=== PATIENT | female | born 1935 | race Caucasian/White ===

== ENCOUNTER 2016-06-08 08:27 | Inpatient (IN) | payer MEDICARE, BC ==
[~2016-06-08] VITALS: Ht 170.2 cm; Wt 83.0 kg
[~2016-06-08 08:27] MED LIST: ASPI325T4 PO; ASPI81TA44 PO; ASPI81TA9 PO; CALC1TAB PO; CIPR250S3 PO; CLOP75TA PO; DOCO1CAP2 PO; DOCU100C5 PO; DULO60CA6 PO; FAMO40TA4 PO; FLUT16SP2 NS; GLIP5TAB PO; GLIP5TAB22 PO; LISI-338 PO; MULT-246 PO; NAPR220T70 PO; PRAV80TA PO
--- NOTE | 2016-06-08 08:39 | ED.ADGEN ---
Past Medical History Past Medical History: CAD, Diabetes-Type II, High Cholesterol, Hypertension, UTI Past Surgical History: Hysterectomy, Other Additional Past Surgical Histo: cardiac stent placement, back, left mastoctomy Alcohol Use: None Drug Use: None Adult General Chief Complaint Chief Complaint: MECHANICAL FALL HPI HPI Patient is a 81 year old woman, history of type 2 diabetes mellitus, CAD, hypertension, hypercholesterolemia, who presents to the emergency department after mechanical fall. Patient states that she was pushing a large box of poison into her bathroom, with her foot, when she lost her balance and fell, she believes that she struck the right side rib cage against the edge of the box , she fell onto the floor of the bathroom. She does not believe she struck her head, denies any headache, any neck pain, any loss of consciousness, any pain aside from the pain in her lower right rib cage. She did ambulate without difficulty at the scene. EMS was contacted secondary to the pain which she states is worse with deep inspiration and with motion. Has not taken any medications prior to coming to the ED. This occurred approximately 45 minutes prior to arrival in the ED. Patient does use a daily aspirin. No other blood thinners. No previous injuries. Denies any preceding symptoms, no lightheadedness, no dizziness, no nausea, no vomiting, no shortness of breath or chest pain. Review of Systems Review of Systems Constitutional: Denies fever or chills. [] Eyes: Denies change in visual acuity. [] HENT: Denies nasal congestion or sore throat. [] Respiratory: Denies cough or shortness of breath. [] Cardiovascular: Denies chest pain or edema. [] GI: Denies abdominal pain, nausea, vomiting, bloody stools or diarrhea. [] : Denies dysuria. [] Musculoskeletal: Denies back pain or joint pain. [] Integument: Denies rash. [] Neurologic: Denies headache, focal weakness or sensory changes. [] Endocrine: Denies polyuria or polydipsia. [] Lymphatic: Denies swollen glands. [] Psychiatric: Denies depression or anxiety. [] Current Medications Current Medications Current Medications Medications (Trade) Dose Ordered Sig/Lakeisha Start Time Stop Time Status Last Admin Dose Admin Acetaminophen (Tylenol) 1,000 mg 1X ONCE 06/08/16 09:00 06/08/16 09:01 DC 06/08/16 09:12 1,000 MG Lidocaine (Lidoderm) 1 patch 1X ONCE 06/08/16 09:00 06/08/16 09:01 DC 06/08/16 09:12 1 PATCH Oxycodone/ Acetaminophen (Percocet 5/325) 1 tab 1X ONCE 06/08/16 10:00 06/08/16 10:01 DC 06/08/16 10:00 1 TAB Allergies Allergies Allergies Coded Allergies Type Severity Reaction Last Updated Verified metformin Allergy Intermediate 05/13/14 Yes Physical Exam Physical Exam Constitutional: Well developed, well nourished, no acute distress, non-toxic appearance. [] HENT: Normocephalic, atraumatic, bilateral external ears normal, oropharynx moist, no oral exudates, nose normal. [] Eyes: PERRLA, EOMI, conjunctiva normal, no discharge. [] Neck: Normal range of motion, no midline or paraspinal tenderness, supple, no stridor. [] Cardiovascular:Heart rate regular rhythm, no murmur , S1, S2, rubs or gallops. Patient with reproducible tenderness along the right posterior and lateral lower rib cage, no external signs of trauma, no abdominal tenderness, no crepitus, bony point tenderness is noted along the lateral rib cage, 6 through 10. Lungs & Thorax: Bilateral breath sounds clear to auscultation [] Abdomen: Bowel sounds normal, soft, no tenderness, no masses, no rebound, rigidity, no guarding no pulsatile masses. [] Skin: Warm, dry, no erythema, no rash. [] Back: No midline tenderness, no step-offs or deformities, patient with mild paraspinal tenderness on the right side of the lumbar spine, no CVA tenderness. [] Extremities: No tenderness to palpation, pelvis is stable to rock, full range of motion lower extremities without discomfort, no cyanosis, no clubbing, ROM intact, no edema. [] Neurologic: Alert and oriented X 3, normal motor function, normal sensory function, no focal deficits noted. [] Psychologic: Affect normal, judgement normal, mood normal. [] Current Patient Data Vital Signs Vital Signs Date Time Temp Pulse Resp B/P Pulse Ox O2 Delivery O2 Flow Rate FiO2 06/08/16 10:00 18 94 Room Air 06/08/16 08:27 98.3 60 157/70 98.3 Lab Values Laboratory Tests Test 06/08/16 10:15 Urine Collection Type U cath Urine Color Yellow Urine Clarity Clear Urine pH 5.5 Urine Specific [place] 1.015 Urine Protein Negativemg/dL (NEG-TRACE) Urine Glucose (UA) Negativemg/dL (NEG) Urine Ketones (Stick) Negativemg/dL (NEG) Urine Blood Negative (NEG) Urine Nitrite Negative (NEG) Urine Bilirubin Negative (NEG) Urine Urobilinogen Dipstick 0.2mg/dL (0.2 mg/dL) Urine Leukocyte Esterase Large (NEG) Urine RBC 0/HPF (0-2) Urine WBC >40/HPF (0-4) Urine Squamous Epithelial Cells Mod/LPF Urine Bacteria Few/HPF (0-FEW) Urine Mucus Slight/LPF EKG EKG ECG: Rhythm strip: Sinus rhythm, heart rate 80 beats minute, no ectopy. As interpreted by me. Radiology/Procedures Radiology/Procedures [] [facility] [address] [address] IMAGING REPORT Signed PATIENT: SARAVANAN BENITES ACCOUNT: [id number] : 1935 LOCATION: ER AGE: 81 SEX: F EXAM [id number] STATUS: PRE ER ORD. PHYSICIAN: RUSLAN VELIZ DO REASON: Fall/r rib pain PROCEDURE: LUMBAR SPINE 2-3V; RIBS RIGHT AND PA CHEST Exam performed: Lumbar spine and right sided ribs. History: Fall today, pain lower back. Date of service: 06/08/16. Comparison: None available Lumbar spine 3 views findings: Normal sagittal alignment is preserved. 5 nonrib-bearing vertebral bodies are identified. Scoliosis of the lumbar spine with rightward concavity. Vertebral body heights are maintained. There is narrowing of several intervertebral disc spaces with mild osteophytic spurring. No compression fracture. No prevertebral soft tissue swelling. Multilevel bilateral facet hypertrophic changes are noted. Impression: 1. Scoliosis and spondylotic changes involving the lumbar spine. 2. Abnormality noted. End impression. Right rib series findings: Minimally displaced fractures right sixth, seventh, eighth and ninth rib fractures are seen in the posterior axillary line. There is no pneumothorax. The right lung is clear. The heart size and mediastinal silhouette is within limits of normal. The pulmonary vascularity is unremarkable. Atheromatous calcification of the aortic knob. Impression: 1. Nondisplaced right sixth through ninth rib fractures noted. 2. No pneumothorax. DICTATED and SIGNED BY: VINICIO DODSON MD DATE: 06/08/16 0908 CC: RUSLAN VELIZ DO; DEB LEUNG ~ Course & Med Decision Making Course & Med Decision Making Pertinent Labs and Imaging studies reviewed. (See chart for details) Patient's examination and history concerning for fracture. X-ray reveals fractures of right lateral ribs 6 through 9, with mild displacement of the first 3 fractures, no underlying evidence of lung injury. Patient has a Lidoderm patch in place, has been receiving fentanyl in the ED. She states her pain is better, I did discuss these findings with her, she also the spinous from a tree at bedside. Patient states that she would like to be discharged home with possible, she did attempt to ambulate in the ED after oral medication was given, however as soon as she sat up, she experienced significant pain, and was unable to out of bed, even with assistance, I do not believe she'll be able to ambulate safely. Although patient does wish to go home, after discussion she is agreeable to be admitted the hospital for management of her intractable pain that is preventing ADLs. Patient resting more comfortably after receiving additional medication in the ED, etc. spirometry as stated, findings as above discussed with Dr. Umaña of internal medicine, baseline laboratory studies ordered, patient accepted to her service as a full admission to the medical surgical floor, with bridge orders. Dragon Disclaimer Dragon Disclaimer This electronic medical record was generated, in whole or in part, using a voice recognition dictation system. Departure Impression: Primary Impression: Ribs, multiple fractures Additional Impression: Fall Disposition: ADMITTED INPATIENT Condition: IMPROVED Problem Qualifiers Primary Impression: Ribs, multiple fractures Encounter type: initial encounter Fracture type: closed Laterality: right Qualified Code: S22.41XA - Multiple fractures of ribs, right side, initial encounter for closed fracture Additional Impression: Fall Encounter type: initial encounter Qualified Code: W19.XXXA - Unspecified fall, initial encounter RUSLAN VELIZ DO Jun 08, 2016 08:39
[2016-06-08] MEDS ORDERED: ACETAMINOPHEN 500 MG TABLET PO ONE (09:00)
[2016-06-08] MEDS ORDERED: LIDOCAINE (700MG/PATCH) PATCH. TD ONE (09:00)
--- NOTE | 2016-06-08 09:20 | RAD ---
Exam performed: Lumbar spine and right sided ribs. History: Fall today, pain lower back. Date of service: 06/08/16. Comparison: None available Lumbar spine 3 views findings: Normal sagittal alignment is preserved. 5 nonrib-bearing vertebral bodies are identified. Scoliosis of the lumbar spine with rightward concavity. Vertebral body heights are maintained. There is narrowing of several intervertebral disc spaces with mild osteophytic spurring. No compression fracture. No prevertebral soft tissue swelling. Multilevel bilateral facet hypertrophic changes are noted. Impression: 1. Scoliosis and spondylotic changes involving the lumbar spine. 2. Abnormality noted. End impression. Right rib series findings: Minimally displaced fractures right sixth, seventh, eighth and ninth rib fractures are seen in the posterior axillary line. There is no pneumothorax. The right lung is clear. The heart size and mediastinal silhouette is within limits of normal. The pulmonary vascularity is unremarkable. Atheromatous calcification of the aortic knob. Impression: 1. Nondisplaced right sixth through ninth rib fractures noted. 2. No pneumothorax.
[2016-06-08] MEDS ORDERED: OXYCODONE/APAP 5/325 TABLET. PO ONE (10:00)
[2016-06-08 10:30] LABS: BILIRUBIN,URINE NEGATIVE (NEG); GLUCOSE,URINE NEGATIVE (NEG); NITRITE,URINE NEGATIVE (NEG); PH,URINE 5.5; PROTEIN,URINE NEGATIVE (NEG-TRACE); UROBILINOGEN,URINE 0.2 mg/dL (0.2 mg/dL)
[2016-06-08 10:45] LABS: BACTERIA,URINE FEW /HPF (0-FEW); RBC,URINE 0 /HPF (0-2); SQUAMOUS EPITHELIAL CELL,UR MOD /LPF; WBC,URINE >40 /HPF (0-4)
[2016-06-08] MEDS ORDERED: MAGNESIUM HYDROXIDE 2,400 MG/30 ML ORAL.SUSP. PO PRN (12:00)
[2016-06-08] MEDS ORDERED: OXYCODONE IR 5 MG TABLET. PO PRN (12:00)
[2016-06-08] MEDS ORDERED: MAG HYDROX/ALUMINUM HYD/SIMETH 30 ML ORAL.SUSP PO PRN (12:00)
[2016-06-08] MEDS ORDERED: LACTULOSE 20 GM/30 ML SOLUTION. PO PRN (12:00)
[2016-06-08] MEDS ORDERED: MORPHINE SULFATE 2 MG/ML DISP.SYRIN. IV PRN (12:00)
[2016-06-08] MEDS ORDERED: CALCIUM CARBONATE 500 MG TAB.CHEW PO PRN (12:00)
[2016-06-08] MEDS ORDERED: ONDANSETRON PF 4 MG/2 ML VIAL. IV PRN ×2 (12:00→12:45)
[2016-06-08] MEDS ORDERED: BISACODYL 10 MG SUPP.RECT PR PRN (12:00)
[2016-06-08] MEDS ORDERED: DEXTROSE 50% 25 GM / 50ML DISP.SYRIN. IV PRN (12:15)
[2016-06-08] MEDS: INSULIN ASPART 300 UNITS/3 ML INSULN.PEN SQ SCH ×2 (12:30→17:00)
[2016-06-08 13:00] VITALS: BP 98/59
[2016-06-08] MEDS: GLIPIZIDE ER 5 MG TAB.ER.24 PO SCH (13:00)
[2016-06-08] MEDS: DULOXETINE HCL 30 MG CAPSULE.DR. PO SCH (13:00)
[2016-06-08] MEDS: CALCIUM CARB/VIT D3 500/200 TABLET PO SCH (13:00)
[2016-06-08] MEDS: FLUTICASONE 50MCG/NASAL SPRAY 16GM BOTTLE. NS SCH (13:00)
[2016-06-08] MEDS: OMEGA-3 FATTY ACIDS/FISH OIL 1,000 MG CAPSULE. PO SCH (13:00)
[2016-06-08] MEDS: ASPIRIN 81 MG TAB.CHEW PO SCH (13:00)
[2016-06-08] MEDS: FAMOTIDINE 20 MG TABLET. PO SCH (13:00)
[2016-06-08] MEDS: LISINOPRIL 5 MG TABLET. PO SCH (13:00)
[2016-06-08] MEDS: MULTIVITAMIN with MINERAL TABLET. PO SCH (13:00)
[2016-06-08] MEDS: LIDOCAINE (700MG/PATCH) PATCH. TD SCH (13:00)
--- NOTE | 2016-06-08 13:47 | PDOC1 ---
History and Physical Date of Admission Date of Admission DATE: 06/08/16 TIME: 13:43 Identification/Chief Complaint Chief Complaint fall at home Source Source: Caregiver, Chart review, Patient History of Present Illness History of Present Illness Very pleasant 81 y./o female, PCP Dr. Tiera Smith.... Was attempting to move some boxes today in her bathroom but foot got stuck, she hit her R side of ribs on the edge of the box, no head trauma, HAd severe pain afterwards. Xrays at ER showed rib fx 6-9th, no lung injury, UA ok, no labs yet Scoliosis on imaging Was about to be sent home but was road tested at ER and failed miserably, hence admitted PT got percocet and lidoderm patch and seems to be doing well with that Past Medical History Cardiovascular: CAD, HTN, Hyperlipidemia Pulmonary: No pertinent hx CENTRAL NERVOUS SYSTEM: Periperal neuropathy, TIA GI: No pertinent hx Heme/Onc: Cancer Hepatobiliary: No pertinent hx Psych: No pertinent hx Musculoskeletal: Weakness Rheumatologic: No pertinent hx Infectious disease: Other Renal/: No pertinent hx, UTI Endocrine: Diabetes Past Surgical History Past Surgical History: Mastectomy, Hysterectomy, Other Family History Family History: No Significant Social History Smoke: No ALCOHOL: none Drugs: None Current Problem List Problem List Problems Medical Problems: (1) Fall Status: Acute (2) Fall (on) (from) other stairs and steps, initial encounter Status: Acute (3) Ribs, multiple fractures Status: Acute Problems: Current Medications Current Medications Current Medications Lidocaine (Lidoderm) 1 patch 1X ONCE TD Last administered on 06/08/16 09:12; Start 06/08/16 at 09:00; Stop 06/08/16 at 09:01; Status DC Acetaminophen (Tylenol) 1,000 mg 1X ONCE PO Last administered on 06/08/16 09: 12; Start 06/08/16 at 09:00; Stop 06/08/16 at 09:01; Status DC Oxycodone/ Acetaminophen (Percocet 5/325) 1 tab 1X ONCE PO Last administered on 06/08/16 10:00; Start 06/08/16 at 10:00; Stop 06/08/16 at 10:01; Status DC Ondansetron HCl (Zofran) 4 mg PRN Q6HRS PRN IV NAUSEA/VOMITING; Start 06/08/16 at 12:00 Al Hydrox/Mg Hydrox/Simethicone (Mylanta Plus Xs) 30 ml PRN Q3HRS PRN PO HEARTBURN / GAS; Start 06/08/16 at 12:00 Calcium Carbonate/ Glycine (Tums) 500 mg PRN Q3HRS PRN PO UPSET STOMACH; Start 06/08/16 at 12:00 Oxycodone HCl (Roxicodone) 5 mg PRN Q3HRS PRN PO BREAKTHROUGH PAIN; Start at 12:00 Morphine Sulfate 1 mg PRN Q2HR PRN IV PAIN; Start 06/08/16 at 12:00 Oxycodone/ Acetaminophen (Percocet 5/325) 1 tab PRN Q4HRS PRN PO MILD PAIN, 1ST CHOICE; Start 06/08/16 at 12:00 Docusate Sodium (Colace) 100 mg BID PO ; Start 06/08/16 at 21:00; Status Cancel Magnesium Hydroxide (Milk Of Magnesia) 2,400 mg PRN Q12HR PRN PO CONSTIPATION; Start 06/08/16 at 12:00 Lactulose 20 gm PRN Q12HR PRN PO CONSTIPATION; Start 06/08/16 at 12:00 Bisacodyl (Dulcolax Supp) 10 mg PRN DAILY PRN MT CONSTIPATION; Start 06/08/16 at 12:00 Enoxaparin Sodium (Lovenox 40mg Syringe) 40 mg DAILY16 SQ ; Start 06/08/16 at 16: 00 Lidocaine (Lidoderm) 1 patch DAILY TD ; Start 06/08/16 at 13:00 Aspirin (Children'S Aspirin) 81 mg DAILYWBKFT PO ; Start 06/08/16 at 13:00 Docusate Sodium (Colace) 100 mg DAILY PO ; Start 06/09/16 at 09:00 Fluticasone Propionate (Flonase) 2 spray DAILY NS ; Start 06/08/16 at 13:00 Glipizide (Glucotrol Er) 10 mg DAILY08 PO ; Start 06/08/16 at 13:00 Lisinopril (Prinivil) 5 mg DAILY PO ; Start 06/08/16 at 13:00 Calcium/Vitamin D (Oscal D 500mg/ 200uts) 1 tab DAILY PO ; Start 06/08/16 at 13: 00 Fish Oil (Fish Oil) 1,000 mg DAILY PO ; Start 06/08/16 at 13:00 Duloxetine HCl (Cymbalta) 60 mg DAILY PO ; Start 06/08/16 at 13:00 Famotidine (Pepcid) 40 mg DAILY PO ; Start 06/08/16 at 13:00 Multivitamins/ Calcium (Thera M Plus) 1 tab DAILY PO ; Start 06/08/16 at 13:00 Atorvastatin Calcium (Lipitor) 20 mg QHS PO ; Start 06/08/16 at 21:00 Insulin Aspart (Novolog) 0-9 UNITS TIDWMEALS SQ ; Start 06/08/16 at 12:30 Dextrose 12.5 gm PRN Q15MIN PRN IV SEE COMMENTS; Start 06/08/16 at 12:15 Ondansetron HCl (Zofran) 4 mg PRN Q8HRS PRN IV NAUSEA/VOMITING; Start 06/08/16 at 12:45; Stop 06/09/16 at 12:44 Active Scripts Active Ciprofloxacin 250 Mg/5 Ml Christina.mc.rec 250 Mg PO BID Children's Aspirin (Aspirin) 81 Mg Tab.chew 81 Mg PO DAILYWBKFT 30 Days Glipizide Er (Glipizide) 5 Mg Tab.er.24 10 Mg PO DAILY Reported Pravachol (Pravastatin Sodium) 80 Mg Tablet 80 Mg PO DAILY Multi-Vitamin Daily (Multivitamin) 1 Each Tablet 1 Each PO DAILY Lisinopril 5 Mg Tablet 5 Mg PO DAILY Flonase (Fluticasone Propionate) 16 Gm [place].susp 2 [place] NS DAILY Famotidine 40 Mg Tablet 40 Mg PO DAILY Cymbalta (Duloxetine Hcl) 60 Mg Capsule.dr 60 Mg PO DAILY Docusate Sodium 100 Mg Capsule 100 Mg PO DAILY Fish Oil Concentrate Softgel (Docosahexanoic Acid/Epa) 1 Each Capsule 1 Each PO DAILY Caltrate 600 + D Tablet (Calcium Carbonate/Vitamin D3) 1 Each Tablet 1 Each PO DAILY Allergies Allergies: Coded Allergies: metformin (Verified Allergy, Intermediate, 05/13/14) ROS General: No: Appetite, Chills, Fatigue, Malaise, Night Sweats, Other PSYCHOLOGICAL ROS: No: Anxiety, Behavioral Disorder, Concentration difficultie , Decreased libido, Depression, Disorientation, Hallucinations, Hostility, Irritablity, Memory difficulties, Mood Swings, Obsessive thoughts, Other, Physical abuse, Sexual abuse, Sleep disturbances, Suicidal ideation Eyes: No Blurry vision, No Decreased vision, No Double vision, No Dry eyes, No Excessive tearing, No Eye Pain, No Itchy Eyes, No Loss of vision, No Other, No Photophobia, No [place], No Uses contacts, No Uses glasses HEENT: No: Epistaxis, Heacaches, Hearing change, Nasal congestion, Nasal discharge, Oral lesions, Other, Sinus pain, Sneezing, Snoring, Sore Throat, Tinnitus, Vertigo, Visual Changes, Vocal changes ALLERGY AND IMMUNOLOGY: No: Hives, Insect Bite Sensitivity, Itchy/Watery Eyes, Nasal Congestion, Other, Post Nasal Drip, Seasonal Allergies Hematological and Lymphatic: No: Bleeding Problems, Blood Clots, Blood Transfusions, Brusing, Night Sweats, Other, Pallor, Swollen Lymph Nodes ENDOCRINE: No: Breast Changes, Galactorrhea, Hair Pattern Changes, Hot Flashes , Malaise/lethargy, Mood Swings, Other, Palpitations, Polydipsia/polyuria, Skin Changes, Temperature Intolerance, Unexpected Weight Changes Breast: No New/Changing Breast Lumps, No Nipple changes, No Nipple discharge, No Other Respiratory: No: Cough, Hemoptysis, Orthopnea, Other, Pleuritic Pain, SOB with excertion, Shortness of breath, Sputum Changes, Stridor, Tachypnea, Wheezing Cardiovascular: No Chest Pain, No Edema, No Lt Headedness, No Orthopnea, No Other, No Palpitations, No Paroxysmal Noc. Dyspnea Gastrointestinal: No Abdominal Pain, No Constipation, No Diarrhea, No Hematochezia, No Melena, No Nausea, No Other, No Vomiting Genitourinary: No , No , No , No , No , No , No , No Discharge, No Dysuria, No Flank Pain, No Frequency, No Hematuria, No Incontinence, No Other, No Pain, No Retention, No Urgency Musculoskeletal: Yes Other (rib pain, R), No Gait Disturbance, No Joint Pain, No Joint Stiffness, No Joint Swelling, No Muscle Pain, No Muscular Weakness, No Pain In:, No Swelling In: Neurological: Yes Gait Disturbance, No Behavorial Changes, No Bowel/Bladder ControlChng, No Confusion, No Dizziness, No Headaches, No Impaired Coord/balance, No Memory Loss, No Numbness/ Tingling, No Other, No Seizures, No Speech Problems, No Tremors, No Visual Changes, No Weakness Skin: No Acne, No Dry Skin, No Eczema, No Hair Changes, No Lumps, No Mole Changes, No Mottling, No Nail Changes, No Other, No Pruritus, No Rash, No Skin Lesion Changes Physical Exam General: Alert, Oriented X3, Cooperative, No acute distress HEENT: PERRLA Lungs: Clear to auscultation, Normal air movement Heart: S1S2, RRR, no thrills, no rubs, no gallops Cardiovascular: S1, S2 Breasts: Normal Abdomen: Normal bowel sounds, Soft, No tenderness, No hepatosplenomegaly, No masses Male Genitals Exam: normal genitalia, normal prostate Extremities: No clubbing, No cyanosis, No edema, Normal pulses, No tenderness/ swelling Skin: No rashes, No breakdown, No significant lesion Neuro: Normal gait, Normal speech, Strength at 5/5 X4 ext, Normal tone, Sensation intact, Cranial nerves 3-12 NL, Reflexes 2+ Psych/Mental Status: Mental status NL, Mood NL Vitals Vitals Vital Signs Date Time Temp Pulse Resp B/P Pulse Ox O2 Delivery O2 Flow Rate FiO2 06/08/16 10:00 18 94 Room Air 06/08/16 08:27 98.3 60 157/70 98.3 Labs Labs Laboratory Tests Test 06/08/16 10:15 Urine Collection Type U cath Urine Color Yellow Urine Clarity Clear Urine pH 5.5 Urine Specific [place] 1.015 Urine Protein Negativemg/dL (NEG-TRACE) Urine Glucose (UA) Negativemg/dL (NEG) Urine Ketones (Stick) Negativemg/dL (NEG) Urine Blood Negative (NEG) Urine Nitrite Negative (NEG) Urine Bilirubin Negative (NEG) Urine Urobilinogen Dipstick 0.2mg/dL (0.2 mg/dL) Urine Leukocyte Esterase Large (NEG) Urine RBC 0/HPF (0-2) Urine WBC >40/HPF (0-4) Urine Squamous Epithelial Cells Mod/LPF Urine Bacteria Few/HPF (0-FEW) Urine Mucus Slight/LPF Laboratory Tests Test 06/08/16 10:15 Urine Collection Type U cath Urine Color Yellow Urine Clarity Clear Urine pH 5.5 Urine Specific [place] 1.015 Urine Protein Negativemg/dL (NEG-TRACE) Urine Glucose (UA) Negativemg/dL (NEG) Urine Ketones (Stick) Negativemg/dL (NEG) Urine Blood Negative (NEG) Urine Nitrite Negative (NEG) Urine Bilirubin Negative (NEG) Urine Urobilinogen Dipstick 0.2mg/dL (0.2 mg/dL) Urine Leukocyte Esterase Large (NEG) Urine RBC 0/HPF (0-2) Urine WBC >40/HPF (0-4) Urine Squamous Epithelial Cells Mod/LPF Urine Bacteria Few/HPF (0-FEW) Urine Mucus Slight/LPF VTE Prophylaxis Ordered VTE Prophylaxis Devices: Yes VTE Pharmacological Prophylaxi: Yes Assessment/Plan Assessment/Plan 1. Right rib fxs number 6-9 2. Scoiliosis 3. HTN plan; obs ADMIT pt/ot coNT LIDODERM PATCH AND PERCOCET iF DOES WELL WITH pt HOME [facility]AO DW PT AND [employer] cHECK VIT D LEVELS MARTÍNEZ PRAKASH MD Jun 08, 2016 13:47
[2016-06-08 14:12] LABS: BASO # 0.1 x10^3/uL (0.0-0.2); BASO % 1 % (0-3); EOS % 0 % (0-3); HEMATOCRIT 40.5 % (36.0-47.0); HEMOGLOBIN 13.2 g/dL (12.0-15.5); LYMPH # 2.1 x10^3/uL (1.0-4.8); LYMPH % 14 % (24-48); MEAN CORPUSCULAR HEMOGLOBIN 31 pg (25-35); MEAN CORPUSCULAR HGB CONC 33 g/dL (31-37); MEAN CORPUSCULAR VOLUME 94 fL (79-100); MONO % 5 % (0-9); NEUT % 80 % (31-73); PLATELET COUNT 227 x10^3/uL (140-400); RED BLOOD COUNT 4.32 x10^6/uL (3.50-5.40); WHITE BLOOD COUNT 15.1 x10^3/uL (4.0-11.0)
[2016-06-08 14:21] LABS: CALCIUM 9.4 mg/dL (8.5-10.1); GFR 53.1
[2016-06-08 14:28] LABS: ALBUMIN 3.5 g/dL (3.4-5.0); ALBUMIN/GLOBULIN RATIO 0.9 (1.0-1.7); TOTAL BILIRUBIN 0.4 mg/dL (0.2-1.0); TOTAL PROTEIN 7.3 g/dL (6.4-8.2)
[2016-06-08 15:00] VITALS: BP 101/62
[2016-06-08 15:36] VITALS: BP 98/59
[2016-06-08] MEDS: ENOXAPARIN 40 MG/0.4 ML DISP.SYRIN. SQ SCH (16:00)
--- NOTE | 2016-06-08 16:35 | ACF ---
Admission Forms Criteria RIB FRACTURE Clinical Indications for Admission to Inpatient Care (Place 'X' for any and all applicable criteria): Admission is indicated for ANY ONE of the following (1)(2)(3)(4): [X]I. 3 or more traumatic rib fractures [ ]II. Flail chest [A](5) [ ]III. Inpatient admission required rather than observation care (Also use Rib Fracture: Observation Care Criteria as appropriate) because of ANY ONE of the following: [ ]1) Pain inhibiting ability to cough or clear airway that is severe or persistent and requires inpatient treatment (eg, frequent parenteral narcotics) [ ]2) Injury (eg, intra-abdominal, vascular, neurologic, pneumothorax) identified that requires inpatient care [ ]3) Rib fracture causing exacerbation of comorbid illness that is severe or persistent (eg, COPD, congestive heart failure) [ ]4) Supplemental oxygen or respiratory treatments for over 24 hours that is performable only in acute inpatient setting [ ]5) Epidural analgesia (6) [ ]6) Immediate inpatient surgery [ ]7) Other condition, treatment or monitoring requiring inpatient admission Extended stay beyond goal length of stay may be needed for (Use Intensive, Intermediate and Telemetry Care Criteria) (1)(15) [ ]a) Flail chest [ ]b) Respiratory insufficiency [ ]c) Concomitant trauma to visceral or thoracic organs [ ]d) Need for chest tube drainage [ ]e) Reduced vital capacity (eg, less than 1.4 liters or 55% predicted) [ ]f) Active comorbidities The original [employer] content created by [employer] has been revised. The portions of the content which have been revised are identified through the use of italic text or in bold, and [facility] has neither reviewed nor approved the modified material. All other unmodified content is copyright [employer]. Please see references footnoted in the original [facility] edition 2016 Admission Criteria Met?: Yes EVON CALVERT Jun 08, 2016 16:35
[2016-06-08 19:00] VITALS: BP 154/75
[2016-06-08] MEDS: OXYCODONE/APAP 5/325 TABLET. PO PRN (19:17)
[2016-06-08] MEDS: ATORVASTATIN CALCIUM 20 MG TABLET PO SCH (20:56)
[2016-06-08] MEDS ORDERED: DOCUSATE SODIUM 100 MG CAPSULE PO SCH (21:00)
[2016-06-08 22:57] VITALS: BP 135/70
[2016-06-09 03:00] VITALS: BP 132/64
[2016-06-09 07:00] VITALS: BP 137/60
[2016-06-09] MEDS: GLIPIZIDE ER 5 MG TAB.ER.24 PO SCH (07:38)
[2016-06-09] MEDS: OMEGA-3 FATTY ACIDS/FISH OIL 1,000 MG CAPSULE. PO SCH (07:38)
[2016-06-09] MEDS: LISINOPRIL 5 MG TABLET. PO SCH (07:39)
[2016-06-09] MEDS: MULTIVITAMIN with MINERAL TABLET. PO SCH (07:39)
[2016-06-09] MEDS: CALCIUM CARB/VIT D3 500/200 TABLET PO SCH (07:39)
[2016-06-09] MEDS: OXYCODONE/APAP 5/325 TABLET. PO PRN ×2 (07:40→15:03)
[2016-06-09] MEDS: DULOXETINE HCL 30 MG CAPSULE.DR. PO SCH (07:40)
[2016-06-09] MEDS: FAMOTIDINE 20 MG TABLET. PO SCH (07:40)
[2016-06-09] MEDS: ASPIRIN 81 MG TAB.CHEW PO SCH (07:41)
[2016-06-09] MEDS: FLUTICASONE 50MCG/NASAL SPRAY 16GM BOTTLE. NS SCH (07:41)
[2016-06-09] MEDS: LIDOCAINE (700MG/PATCH) PATCH. TD SCH (07:41)
[2016-06-09] MEDS: INSULIN ASPART 300 UNITS/3 ML INSULN.PEN SQ SCH ×3 (07:50→17:00)
[2016-06-09] MEDS: DOCUSATE SODIUM 100 MG CAPSULE PO SCH (09:00)
[2016-06-09 11:24] VITALS: BP 129/64
--- NOTE | 2016-06-09 11:41 | PDOC ---
PROGRESS NOTES Chief Complaint Chief Complaint 1. Right rib fxs number 6-9 2. Scoiliosis 3. HTN 4. Diabetes History of Present Illness History of Present Illness Patient was lying in bed at the time of evaluation, she was in no pain, has no trouble in breathing at room air, plan of care discussed with pt. and RN. Vitals Vitals Vital Signs Date Time Temp Pulse Resp B/P Pulse Ox O2 Delivery O2 Flow Rate FiO2 06/09/16 11:24 97.7 69 20 129/64 92 Room Air 97.7 Physical Exam General: Alert, Oriented X3, Cooperative, No acute distress Heart: Regular rate Lungs: Clear Abdomen: Soft, No tenderness, No hepatosplenomegaly, No masses Extremities: No clubbing, No cyanosis, No edema, Normal pulses, No tenderness/ swelling Skin: No rashes, No breakdown, No significant lesion Labs LABS Laboratory Tests Test 06/08/16 14:00 06/08/16 15:11 06/08/16 16:05 06/08/16 20:36 White Blood Count 15.1x10^3/uL (4.0-11.0) Red Blood Count 4.32x10^6/uL (3.50-5.40) Hemoglobin 13.2g/dL (12.0-15.5) Hematocrit 40.5% (36.0-47.0) Mean Corpuscular Volume 94fL (79-100) Mean Corpuscular Hemoglobin 31pg (25-35) Mean Corpuscular Hemoglobin Concent 33g/dL (31-37) Red Cell Distribution Width 13.0% (11.5-14.5) Platelet Count 227x10^3/uL (140-400) Neutrophils (%) (Auto) 80% (31-73) Lymphocytes (%) (Auto) 14% (24-48) Monocytes (%) (Auto) 5% (0-9) Eosinophils (%) (Auto) 0% (0-3) Basophils (%) (Auto) 1% (0-3) Neutrophils # (Auto) 12.1x10^3uL (1.8-7.7) Lymphocytes # (Auto) 2.1x10^3/uL (1.0-4.8) Monocytes # (Auto) 0.8x10^3/uL (0.0-1.1) Eosinophils # (Auto) 0.1x10^3/uL (0.0-0.7) Basophils # (Auto) 0.1x10^3/uL (0.0-0.2) Sodium Level 142mmol/L (136-145) Potassium Level 5.0mmol/L (3.5-5.1) Chloride Level 105mmol/L (98-107) Carbon Dioxide Level 29mmol/L (21-32) Anion Gap 8 (6-14) Blood Urea Nitrogen 23mg/dL (7-20) Creatinine 1.0mg/dL (0.6-1.0) Estimated GFR (Cockcroft-Gault) 53.1 BUN/Creatinine Ratio 23 (6-20) Glucose Level 139mg/dL (70-99) Calcium Level 9.4mg/dL (8.5-10.1) Total Bilirubin 0.4mg/dL (0.2-1.0) Aspartate Amino Transf (AST/SGOT) 23U/L (15-37) Alanine Aminotransferase (ALT/SGPT) 25U/L (14-59) Alkaline Phosphatase 50U/L (46-116) Total Protein 7.3g/dL (6.4-8.2) Albumin 3.5g/dL (3.4-5.0) Albumin/Globulin Ratio 0.9 (1.0-1.7) 25-Hydroxy Vitamin D Total 43.6ng/mL (30.0-100.0) Glucose (Fingerstick) 201mg/dL (70-99) 203mg/dL (70-99) 178mg/dL (70-99) Review of Systems Review of Systems NO bruising noticed on right side of chest, tender to touch right rib cage, no SOB, no CP, awake, alert, oriented, Assessment and Plan Assessmemt and Plan Assessment: 1. Right rib fxs number 6-9 2. Scoiliosis 3. HTN 4. Diabetes PLAN: - Continue care per floor protocol - PT evaluation done, no discharge to home - SNU evaluation - Cont Lidoderm patch AND prn pain medication - Plan discussed with pt. and RN Problems Medical Problems: (1) Fall Status: Acute (2) Fall (on) (from) other stairs and steps, initial encounter Status: Acute (3) Ribs, multiple fractures Status: Acute Problems: Comment Review of Relevant I have reviewed the following items quin[place] (where applicable) has been applied. Labs Laboratory Tests Test 06/08/16 10:15 06/08/16 14:00 06/08/16 15:11 06/08/16 16:05 Urine Collection Type U cath Urine Color Yellow Urine Clarity Clear Urine pH 5.5 Urine Specific [place] 1.015 Urine Protein Negativemg/dL (NEG-TRACE) Urine Glucose (UA) Negativemg/dL (NEG) Urine Ketones (Stick) Negativemg/dL (NEG) Urine Blood Negative (NEG) Urine Nitrite Negative (NEG) Urine Bilirubin Negative (NEG) Urine Urobilinogen Dipstick 0.2mg/dL (0.2 mg/dL) Urine Leukocyte Esterase Large (NEG) Urine RBC 0/HPF (0-2) Urine WBC >40/HPF (0-4) Urine Squamous Epithelial Cells Mod/LPF Urine Bacteria Few/HPF (0-FEW) Urine Mucus Slight/LPF White Blood Count 15.1x10^3/uL (4.0-11.0) Red Blood Count 4.32x10^6/uL (3.50-5.40) Hemoglobin 13.2g/dL (12.0-15.5) Hematocrit 40.5% (36.0-47.0) Mean Corpuscular Volume 94fL (79-100) Mean Corpuscular Hemoglobin 31pg (25-35) Mean Corpuscular Hemoglobin Concent 33g/dL (31-37) Red Cell Distribution Width 13.0% (11.5-14.5) Platelet Count 227x10^3/uL (140-400) Neutrophils (%) (Auto) 80% (31-73) Lymphocytes (%) (Auto) 14% (24-48) Monocytes (%) (Auto) 5% (0-9) Eosinophils (%) (Auto) 0% (0-3) Basophils (%) (Auto) 1% (0-3) Neutrophils # (Auto) 12.1x10^3uL (1.8-7.7) Lymphocytes # (Auto) 2.1x10^3/uL (1.0-4.8) Monocytes # (Auto) 0.8x10^3/uL (0.0-1.1) Eosinophils # (Auto) 0.1x10^3/uL (0.0-0.7) Basophils # (Auto) 0.1x10^3/uL (0.0-0.2) Sodium Level 142mmol/L (136-145) Potassium Level 5.0mmol/L (3.5-5.1) Chloride Level 105mmol/L (98-107) Carbon Dioxide Level 29mmol/L (21-32) Anion Gap 8 (6-14) Blood Urea Nitrogen 23mg/dL (7-20) Creatinine 1.0mg/dL (0.6-1.0) Estimated GFR (Cockcroft-Gault) 53.1 BUN/Creatinine Ratio 23 (6-20) Glucose Level 139mg/dL (70-99) Calcium Level 9.4mg/dL (8.5-10.1) Total Bilirubin 0.4mg/dL (0.2-1.0) Aspartate Amino Transf (AST/SGOT) 23U/L (15-37) Alanine Aminotransferase (ALT/SGPT) 25U/L (14-59) Alkaline Phosphatase 50U/L (46-116) Total Protein 7.3g/dL (6.4-8.2) Albumin 3.5g/dL (3.4-5.0) Albumin/Globulin Ratio 0.9 (1.0-1.7) 25-Hydroxy Vitamin D Total 43.6ng/mL (30.0-100.0) Glucose (Fingerstick) 201mg/dL (70-99) 203mg/dL (70-99) Test 06/08/16 20:36 Glucose (Fingerstick) 178mg/dL (70-99) Laboratory Tests Test 06/08/16 14:00 06/08/16 15:11 06/08/16 16:05 06/08/16 20:36 White Blood Count 15.1x10^3/uL (4.0-11.0) Red Blood Count 4.32x10^6/uL (3.50-5.40) Hemoglobin 13.2g/dL (12.0-15.5) Hematocrit 40.5% (36.0-47.0) Mean Corpuscular Volume 94fL (79-100) Mean Corpuscular Hemoglobin 31pg (25-35) Mean Corpuscular Hemoglobin Concent 33g/dL (31-37) Red Cell Distribution Width 13.0% (11.5-14.5) Platelet Count 227x10^3/uL (140-400) Neutrophils (%) (Auto) 80% (31-73) Lymphocytes (%) (Auto) 14% (24-48) Monocytes (%) (Auto) 5% (0-9) Eosinophils (%) (Auto) 0% (0-3) Basophils (%) (Auto) 1% (0-3) Neutrophils # (Auto) 12.1x10^3uL (1.8-7.7) Lymphocytes # (Auto) 2.1x10^3/uL (1.0-4.8) Monocytes # (Auto) 0.8x10^3/uL (0.0-1.1) Eosinophils # (Auto) 0.1x10^3/uL (0.0-0.7) Basophils # (Auto) 0.1x10^3/uL (0.0-0.2) Sodium Level 142mmol/L (136-145) Potassium Level 5.0mmol/L (3.5-5.1) Chloride Level 105mmol/L (98-107) Carbon Dioxide Level 29mmol/L (21-32) Anion Gap 8 (6-14) Blood Urea Nitrogen 23mg/dL (7-20) Creatinine 1.0mg/dL (0.6-1.0) Estimated GFR (Cockcroft-Gault) 53.1 BUN/Creatinine Ratio 23 (6-20) Glucose Level 139mg/dL (70-99) Calcium Level 9.4mg/dL (8.5-10.1) Total Bilirubin 0.4mg/dL (0.2-1.0) Aspartate Amino Transf (AST/SGOT) 23U/L (15-37) Alanine Aminotransferase (ALT/SGPT) 25U/L (14-59) Alkaline Phosphatase 50U/L (46-116) Total Protein 7.3g/dL (6.4-8.2) Albumin 3.5g/dL (3.4-5.0) Albumin/Globulin Ratio 0.9 (1.0-1.7) 25-Hydroxy Vitamin D Total 43.6ng/mL (30.0-100.0) Glucose (Fingerstick) 201mg/dL (70-99) 203mg/dL (70-99) 178mg/dL (70-99) Medications Current Medications Lidocaine (Lidoderm) 1 patch 1X ONCE TD Last administered on 06/08/16 09:12; Start 06/08/16 at 09:00; Stop 06/08/16 at 09:01; Status DC Acetaminophen (Tylenol) 1,000 mg 1X ONCE PO Last administered on 06/08/16 09: 12; Start 06/08/16 at 09:00; Stop 06/08/16 at 09:01; Status DC Oxycodone/ Acetaminophen (Percocet 5/325) 1 tab 1X ONCE PO Last administered on 06/08/16 10:00; Start 06/08/16 at 10:00; Stop 06/08/16 at 10:01; Status DC Ondansetron HCl (Zofran) 4 mg PRN Q6HRS PRN IV NAUSEA/VOMITING; Start 06/08/16 at 12:00 Al Hydrox/Mg Hydrox/Simethicone (Mylanta Plus Xs) 30 ml PRN Q3HRS PRN PO HEARTBURN / GAS; Start 06/08/16 at 12:00 Calcium Carbonate/ Glycine (Tums) 500 mg PRN Q3HRS PRN PO UPSET STOMACH; Start 06/08/16 at 12:00 Oxycodone HCl (Roxicodone) 5 mg PRN Q3HRS PRN PO BREAKTHROUGH PAIN; Start at 12:00 Morphine Sulfate 1 mg PRN Q2HR PRN IV PAIN; Start 06/08/16 at 12:00 Oxycodone/ Acetaminophen (Percocet 5/325) 1 tab PRN Q4HRS PRN PO MILD PAIN, 1ST CHOICE Last administered on 06/09/16 07:40; Start 06/08/16 at 12:00 Docusate Sodium (Colace) 100 mg BID PO ; Start 06/08/16 at 21:00; Status Cancel Magnesium Hydroxide (Milk Of Magnesia) 2,400 mg PRN Q12HR PRN PO CONSTIPATION; Start 06/08/16 at 12:00 Lactulose 20 gm PRN Q12HR PRN PO CONSTIPATION; Start 06/08/16 at 12:00 Bisacodyl (Dulcolax Supp) 10 mg PRN DAILY PRN [place] CONSTIPATION; Start 06/08/16 at 12:00 Enoxaparin Sodium (Lovenox 40mg Syringe) 40 mg DAILY16 SQ Last administered on 06/08/16 16:00; Start 06/08/16 at 16:00 Lidocaine (Lidoderm) 1 patch DAILY TD Last administered on 06/09/16 07:41; Start 06/08/16 at 13:00 Aspirin (Children'S Aspirin) 81 mg DAILYWBKFT PO Last administered on 06/09/16 07:41; Start 06/08/16 at 13:00 Docusate Sodium (Colace) 100 mg DAILY PO Last administered on 06/09/16 09:00; Start 06/09/16 at 09:00 Fluticasone Propionate (Flonase) 2 spray DAILY NS Last administered on 07:41; Start 06/08/16 at 13:00 Glipizide (Glucotrol Er) 10 mg DAILY08 PO Last administered on 06/09/16 07:38; Start 06/08/16 at 13:00 Lisinopril (Prinivil) 5 mg DAILY PO Last administered on 06/09/16 07:39; Start 06/08/16 at 13:00 Calcium/Vitamin D (Oscal D 500mg/ 200uts) 1 tab DAILY PO Last administered on 07:39; Start 06/08/16 at 13:00 Fish Oil (Fish Oil) 1,000 mg DAILY PO Last administered on 06/09/16 07:38; Start 06/08/16 at 13:00 Duloxetine HCl (Cymbalta) 60 mg DAILY PO Last administered on 06/09/16 07:40; Start 06/08/16 at 13:00 Famotidine (Pepcid) 40 mg DAILY PO Last administered on 06/09/16 07:40; Start 06/08/16 at 13:00 Multivitamins/ Calcium (Thera M Plus) 1 tab DAILY PO Last administered on 07:39; Start 06/08/16 at 13:00 Atorvastatin Calcium (Lipitor) 20 mg QHS PO Last administered on 06/08/16 20:56 ; Start 06/08/16 at 21:00 Insulin Aspart (Novolog) 0-9 UNITS TIDWMEALS SQ ; Start 06/08/16 at 12:30 Dextrose 12.5 gm PRN Q15MIN PRN IV SEE COMMENTS; Start 06/08/16 at 12:15 Ondansetron HCl (Zofran) 4 mg PRN Q8HRS PRN IV NAUSEA/VOMITING; Start 06/08/16 at 12:45; Stop 06/09/16 at 12:44 Active Scripts Active Ciprofloxacin 250 Mg/5 Ml Christina.mc.rec 250 Mg PO BID Children's Aspirin (Aspirin) 81 Mg Tab.chew 81 Mg PO DAILYWBKFT 30 Days Glipizide Er (Glipizide) 5 Mg Tab.er.24 10 Mg PO DAILY Reported Pravachol (Pravastatin Sodium) 80 Mg Tablet 80 Mg PO DAILY Multi-Vitamin Daily (Multivitamin) 1 Each Tablet 1 Each PO DAILY Lisinopril 5 Mg Tablet 5 Mg PO DAILY Flonase (Fluticasone Propionate) 16 Gm [place].susp 2 [place] NS DAILY Famotidine 40 Mg Tablet 40 Mg PO DAILY Cymbalta (Duloxetine Hcl) 60 Mg Capsule.dr 60 Mg PO DAILY Docusate Sodium 100 Mg Capsule 100 Mg PO DAILY Fish Oil Concentrate Softgel (Docosahexanoic Acid/Epa) 1 Each Capsule 1 Each PO DAILY Caltrate 600 + D Tablet (Calcium Carbonate/Vitamin D3) 1 Each Tablet 1 Each PO DAILY Vitals/I & O Vital Sign - Last 24 Hours 06/08/16 06/08/16 06/08/16 06/08/16 13:00 13:00 13:00 14:35 Temp 97.2 97.2 97.2 97.2 Pulse 58 58 58 Resp 20 20 B/P 98/59 98/59 98/59 Pulse Ox 98 98 O2 Delivery Room Air Room Air Room Air 06/08/16 06/08/16 06/08/16 06/08/16 15:00 15:36 19:00 19:17 Temp 97.2 97.2 98.3 97.2 97.2 98.3 Pulse 66 58 61 Resp 18 20 17 18 B/P 101/62 98/59 154/75 Pulse Ox 97 98 94 O2 Delivery Room Air Room Air Room Air Room Air 06/08/16 06/08/16 06/08/16 06/09/16 20:00 20:17 22:57 03:00 Temp 98.2 97.6 98.2 97.6 Pulse 62 63 Resp 17 B/P 135/70 132/64 Pulse Ox 95 95 94 O2 Delivery Room Air Room Air Room Air 06/09/16 06/09/16 06/09/16 06/09/16 07:00 07:39 07:40 08:00 Temp 98.0 98.0 Pulse 63 80 Resp 16 18 B/P 137/60 137/60 Pulse Ox 93 O2 Delivery Room Air Room Air Room Air 06/09/16 06/09/16 08:40 11:24 Temp 97.7 97.7 Pulse 69 Resp 16 20 B/P 129/64 Pulse Ox 92 O2 Delivery Room Air Room Air Intake and Output 06/08/16 06/08/16 06/09/16 15:00 23:00 07:00 Intake Total 450 ml 400 ml Output Total 300 ml Balance 150 ml 400 ml POLO BARTON III DO Jun 09, 2016 11:41
[2016-06-09 15:00] VITALS: BP 130/67
[2016-06-09] MEDS: ENOXAPARIN 40 MG/0.4 ML DISP.SYRIN. SQ SCH (15:03)
[2016-06-09 19:10] VITALS: BP 126/49
[2016-06-09] MEDS: ATORVASTATIN CALCIUM 20 MG TABLET PO SCH (21:00)
[2016-06-09 23:43] VITALS: BP 138/75
[2016-06-10 03:48] VITALS: BP 142/76
[2016-06-10 06:12] LABS: BASO % 0 % (0-3); EOS % 0 % (0-3); HEMOGLOBIN 15.3 g/dL (12.0-15.5); LYMPH # 1.1 x10^3/uL (1.0-4.8); LYMPH % 4 % (24-48); MEAN CORPUSCULAR HEMOGLOBIN 31 pg (25-35); MEAN CORPUSCULAR HGB CONC 33 g/dL (31-37); MEAN CORPUSCULAR VOLUME 94 fL (79-100); MONO % 4 % (0-9); NEUT % 91 % (31-73); PLATELET COUNT 256 x10^3/uL (140-400); RED CELL DISTRIBUTION WIDTH 13.3 % (11.5-14.5); WHITE BLOOD COUNT 26.2 x10^3/uL (4.0-11.0)
[2016-06-10 06:42] LABS: CALCIUM 10.8 mg/dL (8.5-10.1); CREATININE 1.9 mg/dL (0.6-1.0); GFR 25.3; POTASSIUM 5.1 mmol/L (3.5-5.1)
[2016-06-10 06:55] LABS: NEG OBC FOB NEG; POS OBC FOB POS
[2016-06-10 07:00] VITALS: BP 146/67
[2016-06-10 07:57] LABS: PLT ESTIMATE ADEQUATE (ADEQUATE)
[2016-06-10] MEDS: ASPIRIN 81 MG TAB.CHEW PO SCH (08:00)
[2016-06-10] MEDS: GLIPIZIDE ER 5 MG TAB.ER.24 PO SCH (08:00)
[2016-06-10] MEDS: INSULIN ASPART 300 UNITS/3 ML INSULN.PEN SQ SCH ×3 (08:27→18:12)
[2016-06-10] MEDS: MULTIVITAMIN with MINERAL TABLET. PO SCH (09:00)
[2016-06-10] MEDS: FAMOTIDINE 20 MG TABLET. PO SCH (09:00)
[2016-06-10] MEDS: DULOXETINE HCL 30 MG CAPSULE.DR. PO SCH (09:00)
[2016-06-10] MEDS: CALCIUM CARB/VIT D3 500/200 TABLET PO SCH (09:00)
[2016-06-10] MEDS: LIDOCAINE (700MG/PATCH) PATCH. TD SCH (09:00)
[2016-06-10] MEDS: DOCUSATE SODIUM 100 MG CAPSULE PO SCH (09:00)
[2016-06-10] MEDS: FLUTICASONE 50MCG/NASAL SPRAY 16GM BOTTLE. NS SCH (09:00)
[2016-06-10] MEDS: OMEGA-3 FATTY ACIDS/FISH OIL 1,000 MG CAPSULE. PO SCH (09:00)
[2016-06-10] MEDS: LISINOPRIL 5 MG TABLET. PO SCH (09:00)
--- NOTE | 2016-06-10 10:10 | RAD ---
CT head without contrast History: Altered mental status. Comparison: 02/20/2016. Procedure: Axial images are obtained of the head from the skull base through the vertex without IV contrast. Findings: Mild bilateral periventricular white matter hypodensities likely chronic small vessel ischemic disease. 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 The ventricles and sulci are normal for the patient's age. No mass-effect, intracranial mass, midline shift, hemorrhage or obvious acute infarction is identified. Basilar cisterns are patent. Bone windows demonstrate no significant calvarial abnormality. The left maxillary sinus demonstrates mild mucous retention cyst or polyp.. Impression: 1. No acute intracranial process. 2. Chronic findings. PQRS Compliance Statement: One or more of the following individualized dose reduction techniques were utilized for this examination: 1. Automated exposure control 2. Adjustment of the mA and/or kV according to patient size 3. Use of iterative reconstruction technique faint
[2016-06-10 11:00] VITALS: BP 109/49
[2016-06-10] MEDS: IV NORMAL SALINE 1000ML BAG 1,000 ML IV SCH (11:00)
[2016-06-10] MEDS ORDERED: NALOXONE 0.4 MG/ML VIAL. IV PRN (11:30)
[2016-06-10] MEDS: AA 4.25%/CALCIUM/LYTES/D5W 1,000 ML IV PRN (11:37)
[2016-06-10] MEDS: PIPERACILLIN/TAZOBACTAM 3.375 GM in IV NORMAL SALINE 50ML 50 ML IV SCH ×2 (11:37→18:10)
--- NOTE | 2016-06-10 11:50 | PDOC2 ---
CONSULT Date of Consult Date of Consult DATE: 06/10/16 TIME: 11:26 Reason for Consult Reason for Consult: Abdominal pain/ulcer? Referring Physician Referring Physician: Dr. Giron Source Source: Caregiver, Chart review, Unable to obtain due to (AMS) History of Present Illness Reason for Visit: 81 y/o female admitted 06/08 with right rib fractures. Overnight decreased LOC. Yesterday/last evening had "huge/impacted" BM followed by loose stool and later [place] blood and clots--amount unclear. Per staff, "perineum looks torn". Currently unable to obtain history from patient due to decreased LOC. Apparently h/o GERD, severity unclear nor whether prior EGD. No listed h/o PUD. Has been on antisecretory (famotidine) at home. S/p andrez. No listed liver or pancreatic issues. No current tobacco or alcohol use. H/o colon polyps. 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 Obviously has had prior colonoscopy, though where not known. No signs of marked weight loss. Did have nausea and vomiting last night, non- bloody. No reports of any melena. Has had episodes of encephalopathy here in past from review of old records in [facility]. On labs, hemoglobin has actually gone up, suggesting some volume depletion to me. Now also with leukocytosis. Past Medical History Cardiovascular: CAD (with PCI), HTN, Hyperlipidemia CENTRAL NERVOUS SYSTEM: Periperal neuropathy, TIA, Other (encephalopathic episodes) Heme/Onc: Cancer (breast) Musculoskeletal: Osteoarthritis, Other (recent rib fractures) Infectious disease: Other Renal/: UTI Endocrine: Diabetes, Osteoporosis Past Surgical History Past Surgical History: Cholecystectomy, Mastectomy, Hysterectomy, Other (small bowel tumor resection?/bilateral TKR's) Family History Family History Not obtainable from patient. Family History: No Significant Social History No ALCOHOL: none Drugs: None Current Problem List Problem List Problems Medical Problems: (1) Fall Status: Acute (2) Fall (on) (from) other stairs and steps, initial encounter Status: Acute (3) Ribs, multiple fractures Status: Acute Current Medications Current Medications Current Medications Lidocaine (Lidoderm) 1 patch 1X ONCE TD Last administered on 06/08/16t 09:12; Start 06/08/16 at 09:00; Stop 3/3/17 at 09:01; Status DC Acetaminophen (Tylenol) 1,000 mg 1X ONCE PO Last administered on 06/08/16 09: 12; Start 06/08/16 at 09:00; Stop 06/08/16 at 09:01; Status DC Oxycodone/ Acetaminophen (Percocet 5/325) 1 tab 1X ONCE PO Last administered on 06/08/16 10:00; Start 06/08/16 at 10:00; Stop 06/08/16 at 10:01; Status DC Ondansetron HCl (Zofran) 4 mg PRN Q6HRS PRN IV NAUSEA/VOMITING; Start 06/08/16 at 12:00 Al Hydrox/Mg Hydrox/Simethicone (Mylanta Plus Xs) 30 ml PRN Q3HRS PRN PO HEARTBURN / GAS; Start 06/08/16 at 12:00 Calcium Carbonate/ Glycine (Tums) 500 mg PRN Q3HRS PRN PO UPSET STOMACH; Start 06/08/16 at 12:00 Oxycodone HCl (Roxicodone) 5 mg PRN Q3HRS PRN PO BREAKTHROUGH PAIN; Start at 12:00 Morphine Sulfate 1 mg PRN Q2HR PRN IV PAIN; Start 06/08/16 at 12:00 Oxycodone/ Acetaminophen (Percocet 5/325) 1 tab PRN Q4HRS PRN PO MILD PAIN, 1ST CHOICE Last administered on 06/09/16 15:03; Start 06/08/16 at 12:00 Docusate Sodium (Colace) 100 mg BID PO ; Start 06/08/16 at 21:00; Status Cancel Magnesium Hydroxide (Milk Of Magnesia) 2,400 mg PRN Q12HR PRN PO CONSTIPATION; Start 06/08/16 at 12:00 Lactulose 20 gm PRN Q12HR PRN PO CONSTIPATION; Start 06/08/16 at 12:00 Bisacodyl (Dulcolax Supp) 10 mg PRN DAILY PRN MD CONSTIPATION; Start 06/08/16 at 12:00 Enoxaparin Sodium (Lovenox 40mg Syringe) 40 mg DAILY16 SQ Last administered on 06/09/16 15:03; Start 06/08/16 at 16:00 Lidocaine (Lidoderm) 1 patch DAILY TD Last administered on 06/09/16 07:41; Start 06/08/16 at 13:00 Aspirin (Children'S Aspirin) 81 mg DAILYWBKFT PO Last administered on 06/09/16 07:41; Start 06/08/16 at 13:00 Docusate Sodium (Colace) 100 mg DAILY PO Last administered on 06/09/16 09:00; Start 06/09/16 at 09:00 Fluticasone Propionate (Flonase) 2 spray DAILY NS Last administered on 07:41; Start 06/08/16 at 13:00 Glipizide (Glucotrol Er) 10 mg DAILY08 PO Last administered on 06/09/16 07:38; Start 06/08/16 at 13:00 Lisinopril (Prinivil) 5 mg DAILY PO Last administered on 06/09/16 07:39; Start 06/08/16 at 13:00 Calcium/Vitamin D (Oscal D 500mg/ 200uts) 1 tab DAILY PO Last administered on 07:39; Start 06/08/16 at 13:00 Fish Oil (Fish Oil) 1,000 mg DAILY PO Last administered on 06/09/16 07:38; Start 06/08/16 at 13:00 Duloxetine HCl (Cymbalta) 60 mg DAILY PO Last administered on 06/09/16 07:40; Start 06/08/16 at 13:00 Famotidine (Pepcid) 40 mg DAILY PO Last administered on 06/09/16 07:40; Start 06/08/16 at 13:00 Multivitamins/ Calcium (Thera M Plus) 1 tab DAILY PO Last administered on 07:39; Start 06/08/16 at 13:00 Atorvastatin Calcium (Lipitor) 20 mg QHS PO Last administered on 06/08/16 20:56 ; Start 06/08/16 at 21:00 Insulin Aspart (Novolog) 0-9 UNITS TIDWMEALS SQ Last administered on 06/10/16 08:27; Start 06/08/16 at 12:30 Dextrose 12.5 gm PRN Q15MIN PRN IV SEE COMMENTS; Start 06/08/16 at 12:15 Ondansetron HCl 4 mg 4 mg PRN Q8HRS PRN IV NAUSEA/VOMITING; Start 06/08/16 at 12 :45; Stop 06/09/16 at 12:44; Status DC Piperacillin Sod/ Tazobactam Sod/ Sodium Chloride (Zosyn/Iv Sodium Chloride 0.9 % 50ml) 50 ml @ 100 mls/hr Q6HRS IV ; Start 06/10/16 at 12:00 Pantoprazole Sodium 40 mg 40 mg DAILYAC IVP ; Start 06/10/16 at 11:00 Amino Acids/ Electrolytes/ Dextrose 1,000 ml @ 75 mls/hr [id number] PRN IV .; Start 06/10/16 at 11:00 Sodium Chloride (Iv Sodium Chloride 0.9% 1000ml Bag) 1,000 ml @ 75 mls/hr [id number] IV ; Start 06/10/16 at 11:00 Naloxone HCl (Narcan) 0.4 mg PRN Q2MIN PRN IV SEE COMMENTS; Start 06/10/16 at 11 :30; Status UNV Active Scripts Active Ciprofloxacin 250 Mg/5 Ml Christina.mc.rec 250 Mg PO BID Children's Aspirin (Aspirin) 81 Mg Tab.chew 81 Mg PO DAILYWBKFT 30 Days Glipizide Er (Glipizide) 5 Mg Tab.er.24 10 Mg PO DAILY Reported Pravachol (Pravastatin Sodium) 80 Mg Tablet 80 Mg PO DAILY Multi-Vitamin Daily (Multivitamin) 1 Each Tablet 1 Each PO DAILY Lisinopril 5 Mg Tablet 5 Mg PO DAILY Flonase (Fluticasone Propionate) 16 Gm [place].susp 2 [place] NS DAILY Famotidine 40 Mg Tablet 40 Mg PO DAILY Cymbalta (Duloxetine Hcl) 60 Mg Capsule.dr 60 Mg PO DAILY Docusate Sodium 100 Mg Capsule 100 Mg PO DAILY Fish Oil Concentrate Softgel (Docosahexanoic Acid/Epa) 1 Each Capsule 1 Each PO DAILY Caltrate 600 + D Tablet (Calcium Carbonate/Vitamin D3) 1 Each Tablet 1 Each PO DAILY Allergies Allergies: Coded Allergies: metformin (Verified Allergy, Intermediate, 05/13/14) ROS Review of System Not obtainable from patient due to mental status changes. Physical Exam General: Other (Responds to noxious stimuli with purposeful movements, but no orientation or verbalization) Lungs: Clear to auscultation Heart: Regular rate, Normal S1, Normal S2, No murmurs Abdomen: Normal bowel sounds, Soft, No hepatosplenomegaly, No masses, Other ( Tender? Attempts to push me away when try to examine) Extremities: No cyanosis, No edema Skin: No significant lesion Neuro: Normal tone, Sensation intact, Cranial nerves 3-12 NL, Reflexes 2+ Psych/Mental Status: Other (Not oriented nor verbally responsive) MUSCULOSKELETAL: No deformity, No swelling Vitals VITALS Vital Signs Date Time Temp Pulse Resp B/P Pulse Ox O2 Delivery O2 Flow Rate FiO2 06/10/16 11:00 97.4 86 20 109/49 92 Room Air 97.4 Afebrile with stable hemodynamics (though was bradycardic last night) Labs Labs Laboratory Tests Test 06/08/16 14:00 06/08/16 15:11 06/08/16 16:05 06/08/16 20:36 White Blood Count 15.1x10^3/uL (4.0-11.0) Red Blood Count 4.32x10^6/uL (3.50-5.40) Hemoglobin 13.2g/dL (12.0-15.5) Hematocrit 40.5% (36.0-47.0) Mean Corpuscular Volume 94fL (79-100) Mean Corpuscular Hemoglobin 31pg (25-35) Mean Corpuscular Hemoglobin Concent 33g/dL (31-37) Red Cell Distribution Width 13.0% (11.5-14.5) Platelet Count 227x10^3/uL (140-400) Neutrophils (%) (Auto) 80% (31-73) Lymphocytes (%) (Auto) 14% (24-48) Monocytes (%) (Auto) 5% (0-9) Eosinophils (%) (Auto) 0% (0-3) Basophils (%) (Auto) 1% (0-3) Neutrophils # (Auto) 12.1x10^3uL (1.8-7.7) Lymphocytes # (Auto) 2.1x10^3/uL (1.0-4.8) Monocytes # (Auto) 0.8x10^3/uL (0.0-1.1) Eosinophils # (Auto) 0.1x10^3/uL (0.0-0.7) Basophils # (Auto) 0.1x10^3/uL (0.0-0.2) Sodium Level 142mmol/L (136-145) Potassium Level 5.0mmol/L (3.5-5.1) Chloride Level 105mmol/L (98-107) Carbon Dioxide Level 29mmol/L (21-32) Anion Gap 8 (6-14) Blood Urea Nitrogen 23mg/dL (7-20) Creatinine 1.0mg/dL (0.6-1.0) Estimated GFR (Cockcroft-Gault) 53.1 BUN/Creatinine Ratio 23 (6-20) Glucose Level 139mg/dL (70-99) Calcium Level 9.4mg/dL (8.5-10.1) Total Bilirubin 0.4mg/dL (0.2-1.0) Aspartate Amino Transf (AST/SGOT) 23U/L (15-37) Alanine Aminotransferase (ALT/SGPT) 25U/L (14-59) Alkaline Phosphatase 50U/L (46-116) Total Protein 7.3g/dL (6.4-8.2) Albumin 3.5g/dL (3.4-5.0) Albumin/Globulin Ratio 0.9 (1.0-1.7) 25-Hydroxy Vitamin D Total 43.6ng/mL (30.0-100.0) Glucose (Fingerstick) 201mg/dL (70-99) 203mg/dL (70-99) 178mg/dL (70-99) Test 06/09/16 11:52 06/09/16 21:01 06/10/16 05:05 06/10/16 06:30 Glucose (Fingerstick) 161mg/dL (70-99) 218mg/dL (70-99) White Blood Count 26.2x10^3/uL (4.0-11.0) Red Blood Count 5.00x10^6/uL (3.50-5.40) Hemoglobin 15.3g/dL (12.0-15.5) Hematocrit 47.0% (36.0-47.0) Mean Corpuscular Volume 94fL (79-100) Mean Corpuscular Hemoglobin 31pg (25-35) Mean Corpuscular Hemoglobin Concent 33g/dL (31-37) Red Cell Distribution Width 13.3% (11.5-14.5) Platelet Count 256x10^3/uL (140-400) Neutrophils (%) (Auto) 91% (31-73) Lymphocytes (%) (Auto) 4% (24-48) Monocytes (%) (Auto) 4% (0-9) Eosinophils (%) (Auto) 0% (0-3) Basophils (%) (Auto) 0% (0-3) Neutrophils # (Auto) 23.9x10^3uL (1.8-7.7) Lymphocytes # (Auto) 1.1x10^3/uL (1.0-4.8) Monocytes # (Auto) 1.2x10^3/uL (0.0-1.1) Eosinophils # (Auto) 0.0x10^3/uL (0.0-0.7) Basophils # (Auto) 0.0x10^3/uL (0.0-0.2) Segmented Neutrophils % 67% (35-66) Band Neutrophils % 23% (0-9) Lymphocytes % 6% (24-48) Monocytes % 3% (0-10) Metamyelocytes % 1% (0-0) Platelet Estimate Adequate (ADEQUATE) Sodium Level 138mmol/L (136-145) Potassium Level 5.1mmol/L (3.5-5.1) Chloride Level 101mmol/L (98-107) Carbon Dioxide Level 23mmol/L (21-32) Anion Gap 14 (6-14) Blood Urea Nitrogen 36mg/dL (7-20) Creatinine 1.9mg/dL (0.6-1.0) Estimated GFR (Cockcroft-Gault) 25.3 Glucose Level 321mg/dL (70-99) Calcium Level 10.8mg/dL (8.5-10.1) Stool Occult Blood Positive (NEG) Test 06/10/16 07:39 Glucose (Fingerstick) 334mg/dL (70-99) Laboratory Tests Test 06/09/16 11:52 06/09/16 21:01 06/10/16 05:05 06/10/16 06:30 Glucose (Fingerstick) 161mg/dL (70-99) 218mg/dL (70-99) White Blood Count 26.2x10^3/uL (4.0-11.0) Red Blood Count 5.00x10^6/uL (3.50-5.40) Hemoglobin 15.3g/dL (12.0-15.5) Hematocrit 47.0% (36.0-47.0) Mean Corpuscular Volume 94fL (79-100) Mean Corpuscular Hemoglobin 31pg (25-35) Mean Corpuscular Hemoglobin Concent 33g/dL (31-37) Red Cell Distribution Width 13.3% (11.5-14.5) Platelet Count 256x10^3/uL (140-400) Neutrophils (%) (Auto) 91% (31-73) Lymphocytes (%) (Auto) 4% (24-48) Monocytes (%) (Auto) 4% (0-9) Eosinophils (%) (Auto) 0% (0-3) Basophils (%) (Auto) 0% (0-3) Neutrophils # (Auto) 23.9x10^3uL (1.8-7.7) Lymphocytes # (Auto) 1.1x10^3/uL (1.0-4.8) Monocytes # (Auto) 1.2x10^3/uL (0.0-1.1) Eosinophils # (Auto) 0.0x10^3/uL (0.0-0.7) Basophils # (Auto) 0.0x10^3/uL (0.0-0.2) Segmented Neutrophils % 67% (35-66) Band Neutrophils % 23% (0-9) Lymphocytes % 6% (24-48) Monocytes % 3% (0-10) Metamyelocytes % 1% (0-0) Platelet Estimate Adequate (ADEQUATE) Sodium Level 138mmol/L (136-145) Potassium Level 5.1mmol/L (3.5-5.1) Chloride Level 101mmol/L (98-107) Carbon Dioxide Level 23mmol/L (21-32) Anion Gap 14 (6-14) Blood Urea Nitrogen 36mg/dL (7-20) Creatinine 1.9mg/dL (0.6-1.0) Estimated GFR (Cockcroft-Gault) 25.3 Glucose Level 321mg/dL (70-99) Calcium Level 10.8mg/dL (8.5-10.1) Stool Occult Blood Positive (NEG) Test 06/10/16 07:39 Glucose (Fingerstick) 334mg/dL (70-99) Leukocytosis, acute kidney injury most remarkable findings. Admission UA not suggestive of infection there. Images Images No belly images. Assessment/Plan Assessment/Plan IMP: 1. Altered mental status/leukocytosis--source of apparent infection or other stressful situation unclear, though appears to have some abdominal issues. Narcs an issue? Consider mesenteric insufficiency or SBO as likely has adhesions. 2. H/o GERD, but current issues not suggestive of PUD. 3. S/p andrez. 4. 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 5. Hematochezia. History from staff suggest possible fissure from impaction, though otherwise unclear. 6. H/o "colon polyps". REC: 1. Agree with empiric antibiotics and PPI. 2. Would try one dose of Narcan--will do no harm. 3. CT abd/pelvis stat. 4. NPO 5. Blood cultures. --other pending above. Thank you for allowing us to assist in the care of this patient. Please call if questions. JOSÉ LEON MD Jun 10, 2016 11:50
--- NOTE | 2016-06-10 11:58 | PDOC ---
Infectious Disease Note Vital Sign Vital Signs Vital Signs Date Time Temp Pulse Resp B/P Pulse Ox O2 Delivery O2 Flow Rate FiO2 06/10/16 11:00 97.4 86 20 109/49 92 Room Air 97.4 Labs Lab Laboratory Tests Test 06/09/16 11:52 06/09/16 21:01 06/10/16 05:05 06/10/16 06:30 Glucose (Fingerstick) 161mg/dL (70-99) 218mg/dL (70-99) White Blood Count 26.2x10^3/uL (4.0-11.0) Red Blood Count 5.00x10^6/uL (3.50-5.40) Hemoglobin 15.3g/dL (12.0-15.5) Hematocrit 47.0% (36.0-47.0) Mean Corpuscular Volume 94fL (79-100) Mean Corpuscular Hemoglobin 31pg (25-35) Mean Corpuscular Hemoglobin Concent 33g/dL (31-37) Red Cell Distribution Width 13.3% (11.5-14.5) Platelet Count 256x10^3/uL (140-400) Neutrophils (%) (Auto) 91% (31-73) Lymphocytes (%) (Auto) 4% (24-48) Monocytes (%) (Auto) 4% (0-9) Eosinophils (%) (Auto) 0% (0-3) Basophils (%) (Auto) 0% (0-3) Neutrophils # (Auto) 23.9x10^3uL (1.8-7.7) Lymphocytes # (Auto) 1.1x10^3/uL (1.0-4.8) Monocytes # (Auto) 1.2x10^3/uL (0.0-1.1) Eosinophils # (Auto) 0.0x10^3/uL (0.0-0.7) Basophils # (Auto) 0.0x10^3/uL (0.0-0.2) Segmented Neutrophils % 67% (35-66) Band Neutrophils % 23% (0-9) Lymphocytes % 6% (24-48) Monocytes % 3% (0-10) Metamyelocytes % 1% (0-0) Platelet Estimate Adequate (ADEQUATE) Sodium Level 138mmol/L (136-145) Potassium Level 5.1mmol/L (3.5-5.1) Chloride Level 101mmol/L (98-107) Carbon Dioxide Level 23mmol/L (21-32) Anion Gap 14 (6-14) Blood Urea Nitrogen 36mg/dL (7-20) Creatinine 1.9mg/dL (0.6-1.0) Estimated GFR (Cockcroft-Gault) 25.3 Glucose Level 321mg/dL (70-99) Calcium Level 10.8mg/dL (8.5-10.1) Stool Occult Blood Positive (NEG) Test 06/10/16 07:39 06/10/16 11:40 Glucose (Fingerstick) 334mg/dL (70-99) 296mg/dL (70-99) Objective Assessment ? sepsis Leukocytosis Acute encephalopathy Bloody diarrhea ANT Multiple rib fractures post mechanical fall DM Type II CAD h/o CVA Recent UTI on cipro Plan Plan of Care Zosyn Check stool c. diff BC x 2 Lactic acid UA C&S, straight cath. cancel Monitor WBC, Cr and Temp Await abdominal/pelvis CT Await neurology eval D/w Dr. Giron Thank you [id number] Attending Co-Sign The patient was seen and interviewed as well as examined at the bedside. The chart was reviewed. The case was discussed. Agree with the plan of care. d/w daughter in detail, also check c diff YOMAIRA REYES APRN Jun 10, 2016 11:58 ALEXX LLOYD MD Jun 10, 2016 13:44
[2016-06-10] MEDS ORDERED: NALOXONE 0.4 MG/ML VIAL. IV ONE (12:00)
[2016-06-10] MEDS: PANTOPRAZOLE IV PUSH 40 MG VIAL. IVP SCH (12:03)
--- NOTE | 2016-06-10 12:48 | PDOC ---
PROGRESS NOTES Chief Complaint Chief Complaint 1. Right rib fxs number 6-9 2. Altered Mental Status 3. Leukocytosis 4. H/o GERD 5. 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 Scoiliosis 8. HTN 9. Diabetes History of Present Illness History of Present Illness Patient was lying in bed at the time of evaluation, she has acute mental status change, lethargic, abdomen was soft but tender, pt. indicated epigastric pain, last night she had a large bowel movement with blood and clots in it, she has acute leukocytosis, plan of care discussed with RN. Vitals Vitals Vital Signs Date Time Temp Pulse Resp B/P Pulse Ox O2 Delivery O2 Flow Rate FiO2 06/10/16 11:00 97.4 86 20 109/49 92 Room Air 97.4 Physical Exam General: Other (lethergic, open eyes to pain stimuli) Heart: Regular rate, Normal S1, Normal S2, No murmurs Lungs: Clear Abdomen: Soft, No masses, Other (Tender? Attempts to push me away when try to examine) Extremities: No cyanosis, No edema Skin: No significant lesion Labs LABS Laboratory Tests Test 06/09/16 21:01 06/10/16 05:05 06/10/16 06:30 06/10/16 07:39 Glucose (Fingerstick) 218mg/dL (70-99) 334mg/dL (70-99) White Blood Count 26.2x10^3/uL (4.0-11.0) Red Blood Count 5.00x10^6/uL (3.50-5.40) Hemoglobin 15.3g/dL (12.0-15.5) Hematocrit 47.0% (36.0-47.0) Mean Corpuscular Volume 94fL (79-100) Mean Corpuscular Hemoglobin 31pg (25-35) Mean Corpuscular Hemoglobin Concent 33g/dL (31-37) Red Cell Distribution Width 13.3% (11.5-14.5) Platelet Count 256x10^3/uL (140-400) Neutrophils (%) (Auto) 91% (31-73) Lymphocytes (%) (Auto) 4% (24-48) Monocytes (%) (Auto) 4% (0-9) Eosinophils (%) (Auto) 0% (0-3) Basophils (%) (Auto) 0% (0-3) Neutrophils # (Auto) 23.9x10^3uL (1.8-7.7) Lymphocytes # (Auto) 1.1x10^3/uL (1.0-4.8) Monocytes # (Auto) 1.2x10^3/uL (0.0-1.1) Eosinophils # (Auto) 0.0x10^3/uL (0.0-0.7) Basophils # (Auto) 0.0x10^3/uL (0.0-0.2) Segmented Neutrophils % 67% (35-66) Band Neutrophils % 23% (0-9) Lymphocytes % 6% (24-48) Monocytes % 3% (0-10) Metamyelocytes % 1% (0-0) Platelet Estimate Adequate (ADEQUATE) Sodium Level 138mmol/L (136-145) Potassium Level 5.1mmol/L (3.5-5.1) Chloride Level 101mmol/L (98-107) Carbon Dioxide Level 23mmol/L (21-32) Anion Gap 14 (6-14) Blood Urea Nitrogen 36mg/dL (7-20) Creatinine 1.9mg/dL (0.6-1.0) Estimated GFR (Cockcroft-Gault) 25.3 Glucose Level 321mg/dL (70-99) Calcium Level 10.8mg/dL (8.5-10.1) Stool Occult Blood Positive (NEG) Test 06/10/16 11:40 Glucose (Fingerstick) 296mg/dL (70-99) Review of Systems Review of Systems Lethargic, acute mental status change, epigastric pain, no SOB, no CP, Assessment and Plan Assessmemt and Plan Assessment: 1. Right rib fxs number 6-9 2. Altered Mental Status 3. Leukocytosis 4. H/o GERD 5. 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 Scoiliosis 8. HTN 9. Diabetes PLAN: - Ordered Zosyn for ?Sepsis - Hold Lovenox for now - Ordered Protonix - Start Clinimix 75 ml/hr - NPO - Consult GI and I.D - Recheck labs in AM - Probable SNU evaluation - Appreciate subspecialities inputs and recommendations Problems Medical Problems: (1) Fall Status: Acute (2) Fall (on) (from) other stairs and steps, initial encounter Status: Acute (3) Ribs, multiple fractures Status: Acute Problems: Comment Review of Relevant I have reviewed the following items quincy (where applicable) has been applied. Labs Laboratory Tests Test 06/08/16 14:00 06/08/16 15:11 06/08/16 16:05 06/08/16 20:36 White Blood Count 15.1x10^3/uL (4.0-11.0) Red Blood Count 4.32x10^6/uL (3.50-5.40) Hemoglobin 13.2g/dL (12.0-15.5) Hematocrit 40.5% (36.0-47.0) Mean Corpuscular Volume 94fL (79-100) Mean Corpuscular Hemoglobin 31pg (25-35) Mean Corpuscular Hemoglobin Concent 33g/dL (31-37) Red Cell Distribution Width 13.0% (11.5-14.5) Platelet Count 227x10^3/uL (140-400) Neutrophils (%) (Auto) 80% (31-73) Lymphocytes (%) (Auto) 14% (24-48) Monocytes (%) (Auto) 5% (0-9) Eosinophils (%) (Auto) 0% (0-3) Basophils (%) (Auto) 1% (0-3) Neutrophils # (Auto) 12.1x10^3uL (1.8-7.7) Lymphocytes # (Auto) 2.1x10^3/uL (1.0-4.8) Monocytes # (Auto) 0.8x10^3/uL (0.0-1.1) Eosinophils # (Auto) 0.1x10^3/uL (0.0-0.7) Basophils # (Auto) 0.1x10^3/uL (0.0-0.2) Sodium Level 142mmol/L (136-145) Potassium Level 5.0mmol/L (3.5-5.1) Chloride Level 105mmol/L (98-107) Carbon Dioxide Level 29mmol/L (21-32) Anion Gap 8 (6-14) Blood Urea Nitrogen 23mg/dL (7-20) Creatinine 1.0mg/dL (0.6-1.0) Estimated GFR (Cockcroft-Gault) 53.1 BUN/Creatinine Ratio 23 (6-20) Glucose Level 139mg/dL (70-99) Calcium Level 9.4mg/dL (8.5-10.1) Total Bilirubin 0.4mg/dL (0.2-1.0) Aspartate Amino Transf (AST/SGOT) 23U/L (15-37) Alanine Aminotransferase (ALT/SGPT) 25U/L (14-59) Alkaline Phosphatase 50U/L (46-116) Total Protein 7.3g/dL (6.4-8.2) Albumin 3.5g/dL (3.4-5.0) Albumin/Globulin Ratio 0.9 (1.0-1.7) 25-Hydroxy Vitamin D Total 43.6ng/mL (30.0-100.0) Glucose (Fingerstick) 201mg/dL (70-99) 203mg/dL (70-99) 178mg/dL (70-99) Test 06/09/16 11:52 06/09/16 21:01 06/10/16 05:05 06/10/16 06:30 Glucose (Fingerstick) 161mg/dL (70-99) 218mg/dL (70-99) White Blood Count 26.2x10^3/uL (4.0-11.0) Red Blood Count 5.00x10^6/uL (3.50-5.40) Hemoglobin 15.3g/dL (12.0-15.5) Hematocrit 47.0% (36.0-47.0) Mean Corpuscular Volume 94fL (79-100) Mean Corpuscular Hemoglobin 31pg (25-35) Mean Corpuscular Hemoglobin Concent 33g/dL (31-37) Red Cell Distribution Width 13.3% (11.5-14.5) Platelet Count 256x10^3/uL (140-400) Neutrophils (%) (Auto) 91% (31-73) Lymphocytes (%) (Auto) 4% (24-48) Monocytes (%) (Auto) 4% (0-9) Eosinophils (%) (Auto) 0% (0-3) Basophils (%) (Auto) 0% (0-3) Neutrophils # (Auto) 23.9x10^3uL (1.8-7.7) Lymphocytes # (Auto) 1.1x10^3/uL (1.0-4.8) Monocytes # (Auto) 1.2x10^3/uL (0.0-1.1) Eosinophils # (Auto) 0.0x10^3/uL (0.0-0.7) Basophils # (Auto) 0.0x10^3/uL (0.0-0.2) Segmented Neutrophils % 67% (35-66) Band Neutrophils % 23% (0-9) Lymphocytes % 6% (24-48) Monocytes % 3% (0-10) Metamyelocytes % 1% (0-0) Platelet Estimate Adequate (ADEQUATE) Sodium Level 138mmol/L (136-145) Potassium Level 5.1mmol/L (3.5-5.1) Chloride Level 101mmol/L (98-107) Carbon Dioxide Level 23mmol/L (21-32) Anion Gap 14 (6-14) Blood Urea Nitrogen 36mg/dL (7-20) Creatinine 1.9mg/dL (0.6-1.0) Estimated GFR (Cockcroft-Gault) 25.3 Glucose Level 321mg/dL (70-99) Calcium Level 10.8mg/dL (8.5-10.1) Stool Occult Blood Positive (NEG) Test 06/10/16 07:39 06/10/16 11:40 Glucose (Fingerstick) 334mg/dL (70-99) 296mg/dL (70-99) Laboratory Tests Test 06/09/16 21:01 06/10/16 05:05 06/10/16 06:30 06/10/16 07:39 Glucose (Fingerstick) 218mg/dL (70-99) 334mg/dL (70-99) White Blood Count 26.2x10^3/uL (4.0-11.0) Red Blood Count 5.00x10^6/uL (3.50-5.40) Hemoglobin 15.3g/dL (12.0-15.5) Hematocrit 47.0% (36.0-47.0) Mean Corpuscular Volume 94fL (79-100) Mean Corpuscular Hemoglobin 31pg (25-35) Mean Corpuscular Hemoglobin Concent 33g/dL (31-37) Red Cell Distribution Width 13.3% (11.5-14.5) Platelet Count 256x10^3/uL (140-400) Neutrophils (%) (Auto) 91% (31-73) Lymphocytes (%) (Auto) 4% (24-48) Monocytes (%) (Auto) 4% (0-9) Eosinophils (%) (Auto) 0% (0-3) Basophils (%) (Auto) 0% (0-3) Neutrophils # (Auto) 23.9x10^3uL (1.8-7.7) Lymphocytes # (Auto) 1.1x10^3/uL (1.0-4.8) Monocytes # (Auto) 1.2x10^3/uL (0.0-1.1) Eosinophils # (Auto) 0.0x10^3/uL (0.0-0.7) Basophils # (Auto) 0.0x10^3/uL (0.0-0.2) Segmented Neutrophils % 67% (35-66) Band Neutrophils % 23% (0-9) Lymphocytes % 6% (24-48) Monocytes % 3% (0-10) Metamyelocytes % 1% (0-0) Platelet Estimate Adequate (ADEQUATE) Sodium Level 138mmol/L (136-145) Potassium Level 5.1mmol/L (3.5-5.1) Chloride Level 101mmol/L (98-107) Carbon Dioxide Level 23mmol/L (21-32) Anion Gap 14 (6-14) Blood Urea Nitrogen 36mg/dL (7-20) Creatinine 1.9mg/dL (0.6-1.0) Estimated GFR (Cockcroft-Gault) 25.3 Glucose Level 321mg/dL (70-99) Calcium Level 10.8mg/dL (8.5-10.1) Stool Occult Blood Positive (NEG) Test 06/10/16 11:40 Glucose (Fingerstick) 296mg/dL (70-99) Microbiology 06/08/16 Urine Culture - Preliminary, Resulted 06/08/16 Urine Culture Result 1 (ALEJO) - Preliminary, Resulted Medications Current Medications Lidocaine (Lidoderm) 1 patch 1X ONCE TD Last administered on 06/08/16t 09:12; Start 06/08/16 at 09:00; Stop 06/08/16 at 09:01; Status DC Acetaminophen (Tylenol) 1,000 mg 1X ONCE PO Last administered on 06/08/16 09: 12; Start 06/08/16 at 09:00; Stop 06/08/16 at 09:01; Status DC Oxycodone/ Acetaminophen (Percocet 5/325) 1 tab 1X ONCE PO Last administered on 06/08/16 10:00; Start 06/08/16 at 10:00; Stop 06/08/16 at 10:01; Status DC Ondansetron HCl (Zofran) 4 mg PRN Q6HRS PRN IV NAUSEA/VOMITING; Start 06/08/16 at 12:00 Al Hydrox/Mg Hydrox/Simethicone (Mylanta Plus Xs) 30 ml PRN Q3HRS PRN PO HEARTBURN / GAS; Start 06/08/16 at 12:00 Calcium Carbonate/ Glycine (Tums) 500 mg PRN Q3HRS PRN PO UPSET STOMACH; Start 06/08/16 at 12:00 Oxycodone HCl (Roxicodone) 5 mg PRN Q3HRS PRN PO BREAKTHROUGH PAIN; Start at 12:00 Morphine Sulfate 1 mg PRN Q2HR PRN IV PAIN; Start 06/08/16 at 12:00 Oxycodone/ Acetaminophen (Percocet 5/325) 1 tab PRN Q4HRS PRN PO MILD PAIN, 1ST CHOICE Last administered on 06/09/16 15:03; Start 06/08/16 at 12:00 Docusate Sodium (Colace) 100 mg BID PO ; Start 06/08/16 at 21:00; Status Cancel Magnesium Hydroxide (Milk Of Magnesia) 2,400 mg PRN Q12HR PRN PO CONSTIPATION; Start 06/08/16 at 12:00 Lactulose 20 gm PRN Q12HR PRN PO CONSTIPATION; Start 06/08/16 at 12:00 Bisacodyl (Dulcolax Supp) 10 mg PRN DAILY PRN VT CONSTIPATION; Start 06/08/16 at 12:00 Enoxaparin Sodium (Lovenox 40mg Syringe) 40 mg DAILY16 SQ Last administered on 06/09/16 15:03; Start 06/08/16 at 16:00 Lidocaine (Lidoderm) 1 patch DAILY TD Last administered on 06/09/16 07:41; Start 06/08/16 at 13:00 Aspirin (Children'S Aspirin) 81 mg DAILYWBKFT PO Last administered on 06/09/16 07:41; Start 06/08/16 at 13:00 Docusate Sodium (Colace) 100 mg DAILY PO Last administered on 06/09/16 09:00; Start 06/09/16 at 09:00 Fluticasone Propionate (Flonase) 2 spray DAILY NS Last administered on 07:41; Start 06/08/16 at 13:00 Glipizide (Glucotrol Er) 10 mg DAILY08 PO Last administered on 06/09/16 07:38; Start 06/08/16 at 13:00 Lisinopril (Prinivil) 5 mg DAILY PO Last administered on 06/09/16 07:39; Start 06/08/16 at 13:00 Calcium/Vitamin D (Oscal D 500mg/ 200uts) 1 tab DAILY PO Last administered on 07:39; Start 06/08/16 at 13:00 Fish Oil (Fish Oil) 1,000 mg DAILY PO Last administered on 06/09/16 07:38; Start 06/08/16 at 13:00 Duloxetine HCl (Cymbalta) 60 mg DAILY PO Last administered on 06/09/16 07:40; Start 06/08/16 at 13:00 Famotidine (Pepcid) 40 mg DAILY PO Last administered on 06/09/16 07:40; Start 06/08/16 at 13:00; Stop 06/10/16 at 11:55; Status DC Multivitamins/ Calcium (Thera M Plus) 1 tab DAILY PO Last administered on 07:39; Start 06/08/16 at 13:00 Atorvastatin Calcium (Lipitor) 20 mg QHS PO Last administered on 06/08/16 20:56 ; Start 06/08/16 at 21:00 Insulin Aspart (Novolog) 0-9 UNITS TIDWMEALS SQ Last administered on 06/10/16 12:16; Start 06/08/16 at 12:30 Dextrose 12.5 gm PRN Q15MIN PRN IV SEE COMMENTS; Start 06/08/16 at 12:15 Ondansetron HCl 4 mg 4 mg PRN Q8HRS PRN IV NAUSEA/VOMITING; Start 06/08/16 at 12 :45; Stop 06/09/16 at 12:44; Status DC Piperacillin Sod/ Tazobactam Sod/ Sodium Chloride (Zosyn/Iv Sodium Chloride 0.9 % 50ml) 50 ml @ 100 mls/hr Q6HRS IV Last administered on 06/10/16 11:37; Start 06/10/16 at 12:00 Pantoprazole Sodium 40 mg 40 mg DAILYAC IVP Last administered on 06/10/16 12:03 ; Start 06/10/16 at 11:00 Amino Acids/ Electrolytes/ Dextrose 1,000 ml @ 75 mls/hr [id number] PRN IV . Last administered on 06/10/16 11:37; Start 06/10/16 at 11:00 Sodium Chloride (Iv Sodium Chloride 0.9% 1000ml Bag) 1,000 ml @ 75 mls/hr [id number] IV ; Start 06/10/16 at 11:00 Naloxone HCl (Narcan) 0.4 mg PRN Q2MIN PRN IV SEE COMMENTS; Start 06/10/16 at 11 :30 Naloxone HCl (Narcan) 0.4 mg 1X ONCE IV Last administered on 06/10/16 12:07; Start 06/10/16 at 12:00; Stop 06/10/16 at 12:01; Status DC Active Scripts Active Ciprofloxacin 250 Mg/5 Ml Christina..rec 250 Mg PO BID Children's Aspirin (Aspirin) 81 Mg Tab.chew 81 Mg PO DAILYWBKFT 30 Days Glipizide Er (Glipizide) 5 Mg Tab.er.24 10 Mg PO DAILY Reported Pravachol (Pravastatin Sodium) 80 Mg Tablet 80 Mg PO DAILY Multi-Vitamin Daily (Multivitamin) 1 Each Tablet 1 Each PO DAILY Lisinopril 5 Mg Tablet 5 Mg PO DAILY Flonase (Fluticasone Propionate) 16 Gm [place].susp 2 [place] NS DAILY Famotidine 40 Mg Tablet 40 Mg PO DAILY Cymbalta (Duloxetine Hcl) 60 Mg Capsule.dr 60 Mg PO DAILY Docusate Sodium 100 Mg Capsule 100 Mg PO DAILY Fish Oil Concentrate Softgel (Docosahexanoic Acid/Epa) 1 Each Capsule 1 Each PO DAILY Caltrate 600 + D Tablet (Calcium Carbonate/Vitamin D3) 1 Each Tablet 1 Each PO DAILY Vitals/I & O Vital Sign - Last 24 Hours 06/09/16 06/09/16 06/09/16 06/09/16 15:00 15:03 16:03 19:10 Temp 98.1 97.7 98.1 97.7 Pulse 74 111 Resp 20 16 16 20 B/P 130/67 126/49 Pulse Ox 90 93 O2 Delivery Room Air Room Air Room Air Room Air 06/09/16 06/09/16 06/10/16 06/10/16 20:00 23:43 03:48 07:00 Temp 97.8 97.6 98.4 97.8 97.6 98.4 Pulse 46 91 85 Resp 16 16 20 B/P 138/75 142/76 146/67 Pulse Ox 90 91 91 O2 Delivery Room Air Room Air Room Air Room Air 06/10/16 11:00 Temp 97.4 97.4 Pulse 86 Resp 20 B/P 109/49 Pulse Ox 92 O2 Delivery Room Air Intake and Output 06/09/16 06/09/16 06/10/16 15:00 23:00 07:00 Intake Total 240 ml 0 ml Balance 240 ml 0 ml POLO BARTON III DO Jun 10, 2016 12:48
--- NOTE | 2016-06-10 13:26 | PDOC2 ---
NEUROLOGY CONSULT Date of Admission Date of Admission DATE: 06/10/16 TIME: 13:13 Reason for Consult Reason for Consult: IMPRESSION: MS changes. Lethargy. Difficult talking. Falls, right chest 6th to 9th rib fractures. Leukocytosis. Renal failure. Hyperglycemia, glucose 334 UTI CAD DM HTN HLD Obesity RECOMMENDATIONS/PLAN: Brain MRI w/o contrast. No contrast due to renal failure. Lab: see orders. Treat medical and surgical problems. Ovoid Narcotics as possible. HISTORY OF THE PRESENT ILLNESS: 81-y-old female patient with above medical diseases had a mechanical fall on her right side of chest. She was brought to the ER of [facility] and was found to have right 6th to 9th rib fractures. She has been lethargic, decreased response, difficult talking, so Neurology was called for consultation. Patient was not able to provide history during neurology consult due to her mental statu changes. PAST MEDICAL HISTORY: Please see above. PAST SURGERY HISTORY: Cardiac stent placement. Left mastectomy Hysterectomy ALLERGY: Reviewed. MEDICATIONS: Refer to [facility] HISTORY: Non contributory. SOCIAL HISTORY: Lives at home. Denies smoking, drinking, and illicit drug use. REVIEW OF SYSTEMS: Constitutional: No malnutrition, weight loss, cachexia. Head: No traumatic brain or head injury. Skin: No edema, or rash. Ear: No infection, tinnitus. Eyes: No vision loss or color blindness. Nose: No bleeding or purulent discharges. Hearing: Mild hearing decrease. Neck: No injury. Breast: Left mastectomy. Cardiac: CAD, stent placement, HTN, HLD. Pulmonary: No COPD. GI: No GI ulcer, GI bleeding. Urinary/genital: UTI. Endocrinologic: Diabetes Mellitus, obesity. Skeletomuscular: No muscular atrophy, deformity. Neurological: see HP. Psychiatric: Denies drug use/abuse. Otherwise, not [id number] review of systems. PHYSICAL EXAMINATION: General appearance is in acute distress. HEENT: Normocephalic and nontraumatic. Eyes, nose, ears, and throat are unremarkable. Neck is supple. No lymphadenopathy. No crepitus. Cardiovascular: S1, S2, regular rate and rhythm. Pulmonary: Clear to auscultation bilaterally. Abdomen: Bowel sounds are positive. Extremities: No rash, lesions, or edema. No restriction of range of motion NEUROLOGICAL EXAMINATION: [place] sleepiness but arousable. Not oriented to time, place and person. PERRL. EOMI. CN: no acute focal findings. Muscle tone: within normal. Muscle strength: 4+ DTR: 1-2 Plantar reflex: Neutral response bilaterally Gait: not examined in bed. Sensory exam: no acute abnormal findings. Not able to access cerebellar signs due to not follow commands. She was unable to perform F-T-N test. Current Medications Current Medications Current Medications Lidocaine (Lidoderm) 1 patch 1X ONCE TD Last administered on 06/08/16 09:12; Start 06/08/16 at 09:00; Stop 06/08/16 at 09:01; Status DC Acetaminophen (Tylenol) 1,000 mg 1X ONCE PO Last administered on 06/08/16 09: 12; Start 06/08/16 at 09:00; Stop 06/08/16 at 09:01; Status DC Oxycodone/ Acetaminophen (Percocet 5/325) 1 tab 1X ONCE PO Last administered on 06/08/16 10:00; Start 06/08/16 at 10:00; Stop 06/08/16 at 10:01; Status DC Ondansetron HCl (Zofran) 4 mg PRN Q6HRS PRN IV NAUSEA/VOMITING; Start 06/08/16 at 12:00 Al Hydrox/Mg Hydrox/Simethicone (Mylanta Plus Xs) 30 ml PRN Q3HRS PRN PO HEARTBURN / GAS; Start 06/08/16 at 12:00 Calcium Carbonate/ Glycine (Tums) 500 mg PRN Q3HRS PRN PO UPSET STOMACH; Start 06/08/16 at 12:00 Oxycodone HCl (Roxicodone) 5 mg PRN Q3HRS PRN PO BREAKTHROUGH PAIN; Start at 12:00 Morphine Sulfate 1 mg PRN Q2HR PRN IV PAIN; Start 06/08/16 at 12:00 Oxycodone/ Acetaminophen (Percocet 5/325) 1 tab PRN Q4HRS PRN PO MILD PAIN, 1ST CHOICE Last administered on 06/09/16 15:03; Start 06/08/16 at 12:00 Docusate Sodium (Colace) 100 mg BID PO ; Start 06/08/16 at 21:00; Status Cancel Magnesium Hydroxide (Milk Of Magnesia) 2,400 mg PRN Q12HR PRN PO CONSTIPATION; Start 06/08/16 at 12:00 Lactulose 20 gm PRN Q12HR PRN PO CONSTIPATION; Start 06/08/16 at 12:00 Bisacodyl (Dulcolax Supp) 10 mg PRN DAILY PRN [place] CONSTIPATION; Start 06/08/16 at 12:00 Enoxaparin Sodium (Lovenox 40mg Syringe) 40 mg DAILY16 SQ Last administered on 06/09/16 15:03; Start 06/08/16 at 16:00; Stop 06/10/16 at 12:52; Status DC Lidocaine (Lidoderm) 1 patch DAILY TD Last administered on 06/09/16 07:41; Start 06/08/16 at 13:00 Aspirin (Children'S Aspirin) 81 mg DAILYWBKFT PO Last administered on 06/09/16 07:41; Start 06/08/16 at 13:00 Docusate Sodium (Colace) 100 mg DAILY PO Last administered on 06/09/16 09:00; Start 06/09/16 at 09:00 Fluticasone Propionate (Flonase) 2 spray DAILY NS Last administered on 07:41; Start 06/08/16 at 13:00 Glipizide (Glucotrol Er) 10 mg DAILY08 PO Last administered on 06/09/16 07:38; Start 06/08/16 at 13:00 Lisinopril (Prinivil) 5 mg DAILY PO Last administered on 06/09/16 07:39; Start 06/08/16 at 13:00 Calcium/Vitamin D (Oscal D 500mg/ 200uts) 1 tab DAILY PO Last administered on 07:39; Start 06/08/16 at 13:00 Fish Oil (Fish Oil) 1,000 mg DAILY PO Last administered on 06/09/16 07:38; Start 06/08/16 at 13:00 Duloxetine HCl (Cymbalta) 60 mg DAILY PO Last administered on 06/09/16 07:40; Start 06/08/16 at 13:00 Famotidine (Pepcid) 40 mg DAILY PO Last administered on 06/09/16 07:40; Start 06/08/16 at 13:00; Stop 06/10/16 at 11:55; Status DC Multivitamins/ Calcium (Thera M Plus) 1 tab DAILY PO Last administered on 07:39; Start 06/08/16 at 13:00 Atorvastatin Calcium (Lipitor) 20 mg QHS PO Last administered on 06/08/16 20:56 ; Start 06/08/16 at 21:00 Insulin Aspart (Novolog) 0-9 UNITS TIDWMEALS SQ Last administered on 06/10/16 12:16; Start 06/08/16 at 12:30 Dextrose 12.5 gm PRN Q15MIN PRN IV SEE COMMENTS; Start 06/08/16 at 12:15 Ondansetron HCl 4 mg 4 mg PRN Q8HRS PRN IV NAUSEA/VOMITING; Start 06/08/16 at 12 :45; Stop 06/09/16 at 12:44; Status DC Piperacillin Sod/ Tazobactam Sod/ Sodium Chloride (Zosyn/Iv Sodium Chloride 0.9 % 50ml) 50 ml @ 100 mls/hr Q6HRS IV Last administered on 06/10/16 11:37; Start 06/10/16 at 12:00 Pantoprazole Sodium 40 mg 40 mg DAILYAC IVP Last administered on 06/10/16 12:03 ; Start 06/10/16 at 11:00 Amino Acids/ Electrolytes/ Dextrose 1,000 ml @ 75 mls/hr [id number] PRN IV . Last administered on 06/10/16 11:37; Start 06/10/16 at 11:00 Sodium Chloride (Iv Sodium Chloride 0.9% 1000ml Bag) 1,000 ml @ 75 mls/hr [id number] IV ; Start 06/10/16 at 11:00 Naloxone HCl (Narcan) 0.4 mg PRN Q2MIN PRN IV SEE COMMENTS; Start 06/10/16 at 11 :30 Naloxone HCl (Narcan) 0.4 mg 1X ONCE IV Last administered on 06/10/16 12:07; Start 06/10/16 at 12:00; Stop 06/10/16 at 12:01; Status DC Active Scripts Active Ciprofloxacin 250 Mg/5 Ml Christina.mc.rec 250 Mg PO BID Children's Aspirin (Aspirin) 81 Mg Tab.chew 81 Mg PO DAILYWBKFT 30 Days Glipizide Er (Glipizide) 5 Mg Tab.er.24 10 Mg PO DAILY Reported Pravachol (Pravastatin Sodium) 80 Mg Tablet 80 Mg PO DAILY Multi-Vitamin Daily (Multivitamin) 1 Each Tablet 1 Each PO DAILY Lisinopril 5 Mg Tablet 5 Mg PO DAILY Flonase (Fluticasone Propionate) 16 Gm [place].susp 2 [place] NS DAILY Famotidine 40 Mg Tablet 40 Mg PO DAILY Cymbalta (Duloxetine Hcl) 60 Mg Capsule.dr 60 Mg PO DAILY Docusate Sodium 100 Mg Capsule 100 Mg PO DAILY Fish Oil Concentrate Softgel (Docosahexanoic Acid/Epa) 1 Each Capsule 1 Each PO DAILY Caltrate 600 + D Tablet (Calcium Carbonate/Vitamin D3) 1 Each Tablet 1 Each PO DAILY Allergies Allergies: Coded Allergies: metformin (Verified Allergy, Intermediate, 05/13/14) Vitals VITALS Vital Signs Date Time Temp Pulse Resp B/P Pulse Ox O2 Delivery O2 Flow Rate FiO2 06/10/16 11:00 97.4 86 20 109/49 92 Room Air 97.4 Labs Labs Laboratory Tests Test 06/08/16 14:00 06/08/16 15:11 06/08/16 16:05 06/08/16 20:36 White Blood Count 15.1x10^3/uL (4.0-11.0) Red Blood Count 4.32x10^6/uL (3.50-5.40) Hemoglobin 13.2g/dL (12.0-15.5) Hematocrit 40.5% (36.0-47.0) Mean Corpuscular Volume 94fL (79-100) Mean Corpuscular Hemoglobin 31pg (25-35) Mean Corpuscular Hemoglobin Concent 33g/dL (31-37) Red Cell Distribution Width 13.0% (11.5-14.5) Platelet Count 227x10^3/uL (140-400) Neutrophils (%) (Auto) 80% (31-73) Lymphocytes (%) (Auto) 14% (24-48) Monocytes (%) (Auto) 5% (0-9) Eosinophils (%) (Auto) 0% (0-3) Basophils (%) (Auto) 1% (0-3) Neutrophils # (Auto) 12.1x10^3uL (1.8-7.7) Lymphocytes # (Auto) 2.1x10^3/uL (1.0-4.8) Monocytes # (Auto) 0.8x10^3/uL (0.0-1.1) Eosinophils # (Auto) 0.1x10^3/uL (0.0-0.7) Basophils # (Auto) 0.1x10^3/uL (0.0-0.2) Sodium Level 142mmol/L (136-145) Potassium Level 5.0mmol/L (3.5-5.1) Chloride Level 105mmol/L (98-107) Carbon Dioxide Level 29mmol/L (21-32) Anion Gap 8 (6-14) Blood Urea Nitrogen 23mg/dL (7-20) Creatinine 1.0mg/dL (0.6-1.0) Estimated GFR (Cockcroft-Gault) 53.1 BUN/Creatinine Ratio 23 (6-20) Glucose Level 139mg/dL (70-99) Calcium Level 9.4mg/dL (8.5-10.1) Total Bilirubin 0.4mg/dL (0.2-1.0) Aspartate Amino Transf (AST/SGOT) 23U/L (15-37) Alanine Aminotransferase (ALT/SGPT) 25U/L (14-59) Alkaline Phosphatase 50U/L (46-116) Total Protein 7.3g/dL (6.4-8.2) Albumin 3.5g/dL (3.4-5.0) Albumin/Globulin Ratio 0.9 (1.0-1.7) 25-Hydroxy Vitamin D Total 43.6ng/mL (30.0-100.0) Glucose (Fingerstick) 201mg/dL (70-99) 203mg/dL (70-99) 178mg/dL (70-99) Test 06/09/16 11:52 06/09/16 21:01 06/10/16 05:05 06/10/16 06:30 Glucose (Fingerstick) 161mg/dL (70-99) 218mg/dL (70-99) White Blood Count 26.2x10^3/uL (4.0-11.0) Red Blood Count 5.00x10^6/uL (3.50-5.40) Hemoglobin 15.3g/dL (12.0-15.5) Hematocrit 47.0% (36.0-47.0) Mean Corpuscular Volume 94fL (79-100) Mean Corpuscular Hemoglobin 31pg (25-35) Mean Corpuscular Hemoglobin Concent 33g/dL (31-37) Red Cell Distribution Width 13.3% (11.5-14.5) Platelet Count 256x10^3/uL (140-400) Neutrophils (%) (Auto) 91% (31-73) Lymphocytes (%) (Auto) 4% (24-48) Monocytes (%) (Auto) 4% (0-9) Eosinophils (%) (Auto) 0% (0-3) Basophils (%) (Auto) 0% (0-3) Neutrophils # (Auto) 23.9x10^3uL (1.8-7.7) Lymphocytes # (Auto) 1.1x10^3/uL (1.0-4.8) Monocytes # (Auto) 1.2x10^3/uL (0.0-1.1) Eosinophils # (Auto) 0.0x10^3/uL (0.0-0.7) Basophils # (Auto) 0.0x10^3/uL (0.0-0.2) Segmented Neutrophils % 67% (35-66) Band Neutrophils % 23% (0-9) Lymphocytes % 6% (24-48) Monocytes % 3% (0-10) Metamyelocytes % 1% (0-0) Platelet Estimate Adequate (ADEQUATE) Sodium Level 138mmol/L (136-145) Potassium Level 5.1mmol/L (3.5-5.1) Chloride Level 101mmol/L (98-107) Carbon Dioxide Level 23mmol/L (21-32) Anion Gap 14 (6-14) Blood Urea Nitrogen 36mg/dL (7-20) Creatinine 1.9mg/dL (0.6-1.0) Estimated GFR (Cockcroft-Gault) 25.3 Glucose Level 321mg/dL (70-99) Calcium Level 10.8mg/dL (8.5-10.1) Stool Occult Blood Positive (NEG) Test 06/10/16 07:39 06/10/16 11:40 06/10/16 12:10 Glucose (Fingerstick) 334mg/dL (70-99) 296mg/dL (70-99) Lactic Acid Level 3.3mmol/L (0.4-2.0) Laboratory Tests Test 06/09/16 21:01 06/10/16 05:05 06/10/16 06:30 06/10/16 07:39 Glucose (Fingerstick) 218mg/dL (70-99) 334mg/dL (70-99) White Blood Count 26.2x10^3/uL (4.0-11.0) Red Blood Count 5.00x10^6/uL (3.50-5.40) Hemoglobin 15.3g/dL (12.0-15.5) Hematocrit 47.0% (36.0-47.0) Mean Corpuscular Volume 94fL (79-100) Mean Corpuscular Hemoglobin 31pg (25-35) Mean Corpuscular Hemoglobin Concent 33g/dL (31-37) Red Cell Distribution Width 13.3% (11.5-14.5) Platelet Count 256x10^3/uL (140-400) Neutrophils (%) (Auto) 91% (31-73) Lymphocytes (%) (Auto) 4% (24-48) Monocytes (%) (Auto) 4% (0-9) Eosinophils (%) (Auto) 0% (0-3) Basophils (%) (Auto) 0% (0-3) Neutrophils # (Auto) 23.9x10^3uL (1.8-7.7) Lymphocytes # (Auto) 1.1x10^3/uL (1.0-4.8) Monocytes # (Auto) 1.2x10^3/uL (0.0-1.1) Eosinophils # (Auto) 0.0x10^3/uL (0.0-0.7) Basophils # (Auto) 0.0x10^3/uL (0.0-0.2) Segmented Neutrophils % 67% (35-66) Band Neutrophils % 23% (0-9) Lymphocytes % 6% (24-48) Monocytes % 3% (0-10) Metamyelocytes % 1% (0-0) Platelet Estimate Adequate (ADEQUATE) Sodium Level 138mmol/L (136-145) Potassium Level 5.1mmol/L (3.5-5.1) Chloride Level 101mmol/L (98-107) Carbon Dioxide Level 23mmol/L (21-32) Anion Gap 14 (6-14) Blood Urea Nitrogen 36mg/dL (7-20) Creatinine 1.9mg/dL (0.6-1.0) Estimated GFR (Cockcroft-Gault) 25.3 Glucose Level 321mg/dL (70-99) Calcium Level 10.8mg/dL (8.5-10.1) Stool Occult Blood Positive (NEG) Test 06/10/16 11:40 06/10/16 12:10 Glucose (Fingerstick) 296mg/dL (70-99) Lactic Acid Level 3.3mmol/L (0.4-2.0) SOLIS WOLF MD Jun 10, 2016 13:26
[2016-06-10] MEDS ORDERED: DAPTOMYCIN IV SCH (14:00)
[2016-06-10] MEDS ORDERED: NORMAL SALINE IV SCH (14:00)
--- NOTE | 2016-06-10 14:47 | RAD ---
Examination: CT of the abdomen pelvis without contrast History: History of abdominal pain, elevated WBC count Comparison: None available Technique: Axial CT images of the abdomen pelvis performed without contrast with coronal and sagittal reformats performed. PQRS Compliance Statement: One or more of the following individualized dose reduction techniques were utilized for this examination: 1. Automated exposure control 2. Adjustment of the mA and/or kV according to patient size 3. Use of iterative reconstruction technique Findings: Partially visualized moderate size right basal pneumothorax identified. There is some shift of the mediastinum to the left in part due to volume loss in the left lung and due to positioning the patient within the CT gantry. Nondisplaced fractures of the lateral aspect of the right seventh, eighth ribs and nondisplaced fractures of the posterolateral aspect of the ninth, 10th ribs are identified. The noncontrasted liver, spleen, adrenals grossly appears unremarkable. The gallbladder is mildly distended. The visualized pancreas grossly appears unremarkable. The small bowel is nondilated. Surgical changes identified in the right lower quadrant of the abdomen. There is mild inflammatory fat stranding identified in the distal transverse colon, descending colon and sigmoid colon region with mild thinning of the [place] likely secondary to colitis. Multiple sigmoid colon diverticulosis identified. The large bowel loop is mildly fluid distended. The urinary bladder is mildly distended. Small amount of free fluid identified in the pelvis. Urinary bladder is mildly distended. Moderate aortic atherosclerosis No evidence of hydronephrosis. Moderate degenerative changes identified in the visualized thoracolumbar spine. Mild right lung base airspace opacity likely atelectasis or infiltrate. Coronary artery calcifications. Impression: 1. Partially visualized right basal pneumothorax. 2. Displaced and nondisplaced right rib fractures. 3. Diffuse thickening with inflammatory fat stranding identified surrounding the distal transverse colon, descending colon and sigmoid colon likely colitis. 4. Mild right lung base airspace opacities likely atelectasis or infiltrate. Patient nurse [place] informed at time of dictation.
[2016-06-10 15:00] VITALS: BP 147/90
[2016-06-10] MEDS: METRONIDAZOLE 500mg PREMIX 100 ML IV SCH (16:06)
--- NOTE | 2016-06-10 16:47 | PDOC ---
PULMONARY PROGRESS NOTES Vitals Vital Signs Date Time Temp Pulse Resp B/P Pulse Ox O2 Delivery O2 Flow Rate FiO2 06/10/16 15:00 98.2 57 20 147/90 91 Room Air 98.2 General: Alert HEENT: Other Lungs: Clear Cardiovascular: S1, S2 Abdomen: Soft Extremities: No Edema Labs Laboratory Tests Test 06/08/16 20:36 06/09/16 11:52 06/09/16 21:01 06/10/16 05:05 Glucose (Fingerstick) 178mg/dL (70-99) 161mg/dL (70-99) 218mg/dL (70-99) White Blood Count 26.2x10^3/uL (4.0-11.0) Red Blood Count 5.00x10^6/uL (3.50-5.40) Hemoglobin 15.3g/dL (12.0-15.5) Hematocrit 47.0% (36.0-47.0) Mean Corpuscular Volume 94fL (79-100) Mean Corpuscular Hemoglobin 31pg (25-35) Mean Corpuscular Hemoglobin Concent 33g/dL (31-37) Red Cell Distribution Width 13.3% (11.5-14.5) Platelet Count 256x10^3/uL (140-400) Neutrophils (%) (Auto) 91% (31-73) Lymphocytes (%) (Auto) 4% (24-48) Monocytes (%) (Auto) 4% (0-9) Eosinophils (%) (Auto) 0% (0-3) Basophils (%) (Auto) 0% (0-3) Neutrophils # (Auto) 23.9x10^3uL (1.8-7.7) Lymphocytes # (Auto) 1.1x10^3/uL (1.0-4.8) Monocytes # (Auto) 1.2x10^3/uL (0.0-1.1) Eosinophils # (Auto) 0.0x10^3/uL (0.0-0.7) Basophils # (Auto) 0.0x10^3/uL (0.0-0.2) Segmented Neutrophils % 67% (35-66) Band Neutrophils % 23% (0-9) Lymphocytes % 6% (24-48) Monocytes % 3% (0-10) Metamyelocytes % 1% (0-0) Platelet Estimate Adequate (ADEQUATE) Sodium Level 138mmol/L (136-145) Potassium Level 5.1mmol/L (3.5-5.1) Chloride Level 101mmol/L (98-107) Carbon Dioxide Level 23mmol/L (21-32) Anion Gap 14 (6-14) Blood Urea Nitrogen 36mg/dL (7-20) Creatinine 1.9mg/dL (0.6-1.0) Estimated GFR (Cockcroft-Gault) 25.3 Glucose Level 321mg/dL (70-99) Calcium Level 10.8mg/dL (8.5-10.1) Creatine Kinase 62U/L (26-192) Thyroid Stimulating Hormone (TSH) 2.180uIU/mL (0.358-3.74) Test 06/10/16 06:30 06/10/16 07:39 06/10/16 11:40 06/10/16 12:10 Stool Occult Blood Positive (NEG) Glucose (Fingerstick) 334mg/dL (70-99) 296mg/dL (70-99) Lactic Acid Level 3.3mmol/L (0.4-2.0) Laboratory Tests Test 06/09/16 21:01 06/10/16 05:05 06/10/16 06:30 06/10/16 07:39 Glucose (Fingerstick) 218mg/dL (70-99) 334mg/dL (70-99) White Blood Count 26.2x10^3/uL (4.0-11.0) Red Blood Count 5.00x10^6/uL (3.50-5.40) Hemoglobin 15.3g/dL (12.0-15.5) Hematocrit 47.0% (36.0-47.0) Mean Corpuscular Volume 94fL (79-100) Mean Corpuscular Hemoglobin 31pg (25-35) Mean Corpuscular Hemoglobin Concent 33g/dL (31-37) Red Cell Distribution Width 13.3% (11.5-14.5) Platelet Count 256x10^3/uL (140-400) Neutrophils (%) (Auto) 91% (31-73) Lymphocytes (%) (Auto) 4% (24-48) Monocytes (%) (Auto) 4% (0-9) Eosinophils (%) (Auto) 0% (0-3) Basophils (%) (Auto) 0% (0-3) Neutrophils # (Auto) 23.9x10^3uL (1.8-7.7) Lymphocytes # (Auto) 1.1x10^3/uL (1.0-4.8) Monocytes # (Auto) 1.2x10^3/uL (0.0-1.1) Eosinophils # (Auto) 0.0x10^3/uL (0.0-0.7) Basophils # (Auto) 0.0x10^3/uL (0.0-0.2) Segmented Neutrophils % 67% (35-66) Band Neutrophils % 23% (0-9) Lymphocytes % 6% (24-48) Monocytes % 3% (0-10) Metamyelocytes % 1% (0-0) Platelet Estimate Adequate (ADEQUATE) Sodium Level 138mmol/L (136-145) Potassium Level 5.1mmol/L (3.5-5.1) Chloride Level 101mmol/L (98-107) Carbon Dioxide Level 23mmol/L (21-32) Anion Gap 14 (6-14) Blood Urea Nitrogen 36mg/dL (7-20) Creatinine 1.9mg/dL (0.6-1.0) Estimated GFR (Cockcroft-Gault) 25.3 Glucose Level 321mg/dL (70-99) Calcium Level 10.8mg/dL (8.5-10.1) Creatine Kinase 62U/L (26-192) Thyroid Stimulating Hormone (TSH) 2.180uIU/mL (0.358-3.74) Stool Occult Blood Positive (NEG) Test 06/10/16 11:40 06/10/16 12:10 Glucose (Fingerstick) 296mg/dL (70-99) Lactic Acid Level 3.3mmol/L (0.4-2.0) Medications Active Scripts Medications Dose Route/Sig Days Date Category Ciprofloxacin 250 Mg/5 Ml Christina.mc.rec 250 Mg PO BID 02/22/16 Rx Children's Aspirin (Aspirin) 81 Mg Tab.chew 81 Mg PO DAILYWBKFT 30 01/04/16 Rx Glipizide Er (Glipizide) 5 Mg Tab.er.24 10 Mg PO DAILY 04/25/15 Rx Pravachol (Pravastatin Sodium) 80 Mg Tablet 80 Mg PO DAILY 05/12/14 Reported Multi-Vitamin Daily (Multivitamin) 1 Each Tablet 1 Each PO DAILY 05/12/14 Reported Lisinopril 5 Mg Tablet 5 Mg PO DAILY 05/12/14 Reported Flonase (Fluticasone Propionate) 16 Gm [place].susp 2 [place] NS DAILY 05/12/14 Reported Famotidine 40 Mg Tablet 40 Mg PO DAILY 05/12/14 Reported Cymbalta (Duloxetine Hcl) 60 Mg Capsule.dr 60 Mg PO DAILY 05/12/14 Reported Docusate Sodium 100 Mg Capsule 100 Mg PO DAILY 05/12/14 Reported Fish Oil Concentrate Softgel (Docosahexanoic Acid/Epa) 1 Each Capsule 1 Each PO DAILY 05/12/14 Reported Caltrate 600 + D Tablet (Calcium Carbonate/Vitamin D3) 1 Each Tablet 1 Each PO DAILY 05/12/14 Reported Impression . FULL CONSULT DICTATED, TRAUMATIC PTX CXR REVIEWED WILL REPEAT IN AM NO NEED FOR CHEST TUBE AT THIS TIME THANKS ASHLIE SERRANO MD Jun 10, 2016 16:46
[2016-06-10] MEDS ORDERED: LORAZEPAM 2 MG/ML VIAL IV PRN (17:00)
--- NOTE | 2016-06-10 17:03 | RAD ---
Examination: Single frontal view of the chest History: History of pneumothorax. Comparison: 06/08/2016 Findings: Small right sided pneumothorax identified probably about 10%. Displaced right rib fractures identified at sixth, seventh, eighth ribs posteriorly There is some shifting of the mediastinum to the left with volume loss in the left lung and due to positioning. Mild left lung base airspace opacity likely atelectasis or infiltrate. Impression: 1. Small right apical pneumothorax. 2. Left lung base airspace opacity likely atelectasis or infiltrate or volume loss. 3. Displaced right rib fractures.
[2016-06-10 19:15] VITALS: BP 107/50
[2016-06-10] MEDS: ATORVASTATIN CALCIUM 20 MG TABLET PO SCH (20:33)
[2016-06-10 23:15] VITALS: BP 111/52
[2016-06-11] MEDS: METRONIDAZOLE 500mg PREMIX 100 ML IV SCH ×3 (00:08→17:01)
[2016-06-11] MEDS: IV NORMAL SALINE 1000ML BAG 1,000 ML IV SCH ×2 (00:20→13:40)
[2016-06-11] MEDS: PIPERACILLIN/TAZOBACTAM 3.375 GM in IV NORMAL SALINE 50ML 50 ML IV SCH ×5 (01:00→23:57)
--- NOTE | 2016-06-11 01:26 | RAD ---
PROCEDURE MRI brain without contrast dated 06/10/2016. HISTORY Altered mental status. Confusion. Lethargy. TECHNIQUE Routine multiplanar multisequence MR imaging brain performed. No contrast administered. COMPARISON 04/23/2015. FINDINGS Study is limited due to motion artifact. Ventricles and sulci are mildly prominent for age. No midline shift or mass-effect. Moderate patchy hyperintense FLAIR signal abnormality within the deep/subcortical periventricular white matter and central cruz, unchanged from prior study. No apparent hemorrhage or extra-axial collection. Posterior fossa and brainstem unremarkable. No evidence of restricted diffusion abnormality. Major intracranial flow voids are present. Post-contrast imaging was not performed. Mild mucosal thickening bilateral ethmoid air cells was small mucous retention cysts of the left maxillary sinus, unchanged. Paranasal sinuses are otherwise clear. There is mild increased signal in the bilateral mastoid air cells, unchanged. IMPRESSION - Limited exam. No apparent acute intracranial hemorrhage, mass or acute infarct. - Mild to moderate chronic small vessel ischemic changes and atrophy, similar to prior study. - Mild sinus disease with nonspecific opacification of the bilateral mastoid air cells. Electronically signed by: René Silverman (Jun 11, 2016 01:24:56)
[2016-06-11] MEDS: AA 4.25%/CALCIUM/LYTES/D5W 1,000 ML IV PRN ×2 (02:26→17:42)
[2016-06-11 03:15] VITALS: BP 154/62
[2016-06-11 05:01] LABS: BASO # 0.1 x10^3/uL (0.0-0.2); BASO % 0 % (0-3); EOS % 0 % (0-3); LYMPH # 1.4 x10^3/uL (1.0-4.8); LYMPH % 10 % (24-48); MEAN CORPUSCULAR HEMOGLOBIN 31 pg (25-35); MEAN CORPUSCULAR HGB CONC 32 g/dL (31-37); MEAN CORPUSCULAR VOLUME 94 fL (79-100); MONO % 6 % (0-9); NEUT % 84 % (31-73); PLATELET COUNT 204 x10^3/uL (140-400); RED BLOOD COUNT 3.92 x10^6/uL (3.50-5.40); RED CELL DISTRIBUTION WIDTH 13.3 % (11.5-14.5); WHITE BLOOD COUNT 14.6 x10^3/uL (4.0-11.0)
[2016-06-11 05:32] LABS: CALCIUM 8.3 mg/dL (8.5-10.1); CREATININE 1.1 mg/dL (0.6-1.0); GFR 47.6
[2016-06-11 06:24] LABS: CALCIUM 9.8 mg/dL (8.5-10.1); CREATININE 1.4 mg/dL (0.6-1.0); POTASSIUM 4.9 mmol/L (3.5-5.1)
[2016-06-11 06:30] LABS: ALBUMIN 2.6 g/dL (3.4-5.0); ALBUMIN/GLOBULIN RATIO 0.6 (1.0-1.7); TOTAL BILIRUBIN 0.6 mg/dL (0.2-1.0); TOTAL PROTEIN 6.7 g/dL (6.4-8.2)
--- NOTE | 2016-06-11 06:31 | CONS ---
DATE OF CONSULTATION: 06/10/2016 This is Michoacano Carter, nurse practitioner, dictating for Dr. Jaciel Lloyd, Infectious Disease. REQUESTING PHYSICIAN: Dr. Giron. REASON FOR CONSULTATION: Altered mental status changes with elevated white blood cell count. HISTORY OF PRESENT ILLNESS: This patient is an 81-year-old woman with a history of diabetes mellitus type 2, coronary artery disease, and cerebrovascular accident who presented with right chest pain after falling at home. Chest x-ray revealed multiple displaced right 6th through 9th rib fractures. No pneumothorax. She later became increasingly lethargic. CT of the head showed chronic findings without mass effect, intracranial mass, midline shift, hemorrhage or obvious acute infarction. Her WBC count stella to 26,200 with segs 67% and bands 23%. She was initially reported constipated, but is now having bright red, loose stools with incontinence. Hemoglobin is stable. GI is following. Abdomen/pelvis CT has been ordered. The patient has a history of recurrent urinary tract infections. In fact, she was being treated for a reoccurrence with ciprofloxacin prior to admission. Urinalysis showed WBC's greater than 40 with large leukocyte esterase and few bacteria with moderate squamous epithelial cells. Culture pending. No fevers, chills or sweats reported. She did vomit x 1 yesterday. PAST MEDICAL HISTORY: Klebsiella pneumoniae, UTI, intermittent nitrofurantoin and resistant to ampicillin, otherwise sensitive. Diabetes mellitus type 2, coronary artery disease, hypertension, hyperlipidemia, peripheral neuropathy, TIA, history of cerebrovascular accident, breast cancer and obesity. PAST SURGICAL HISTORY: Left mastectomy, hysterectomy and cardiac stent. SOCIAL HISTORY: The patient lives in an assisted living facility. Former smoker. She is ambulatory with a walker and usually performs ADLs independently. FAMILY HISTORY: Unable to obtain. ALLERGIES: Metformin. MEDICATIONS: Piperacillin/tazobactam. Other medications are available and have been reviewed on the JUN. REVIEW OF SYSTEMS: Unobtainable, as the patient is encephalopathic. PHYSICAL EXAMINATION: GENERAL: female lying in bed in no apparent distress. VITAL SIGNS: Temperature is 97.4, blood pressure 109/49, heart rate 86, respiratory rate 20, pulse oximetry is 92% on room air. Weight is 183 pounds. HEENT: Pupils equally round, reactive. Normal conjunctivae. Oral mucosa is pink and dry. NECK: Supple. LUNGS: Right sided crackles. Nonlabored. HEART: Normal S1 and S2. ABDOMEN: Obese, bowel sounds are present, soft. No grimace or guarding to palpation. EXTREMITIES: No gross edema or cyanosis. Feet a little cool with palpable pulses. SKIN: Without rash. Several bruises noted. NEUROLOGIC: Minimally arousable. Not following commands. LABORATORY DATA: Today's WBC 26.2 from 15.1 on admission. Hemoglobin 15.3, platelet count 256,000, segs 67%, bands 23%, monocytes 6%. Electrolytes are unremarkable. Creatinine 1.9 from 1.0 on admission, BUN 36, glucose 321. Total bilirubin 0.4, AST 23, ALT 25, albumin 3.5. Urinalysis per HPI. Stool occult blood positive. Urine culture, no growth. Head CT per HPI. Lumbar spine x-ray shows scoliosis and spondylitic changes involving the lumbar spine. No compression fracture or prevertebral soft tissue swelling. Minimally displaced fractures, right 6th, 7th, 8th and 9th rib fractures are seen in the posterior axillary line. No pneumothorax. IMPRESSION: 1. Possible early sepsis. 2. Leukocytosis. 3. Acute encephalopathy. 4. Bloody stools. 5. Acute kidney injury. 6. Multiple rib fractures post-mechanical fall. 7. Diabetes mellitus type 2. PLAN: Continue the antibiotics. Check stool for C. diff. Obtain blood cultures x 2 as well as lactic acid. Monitor the WBC count, creatinine and temperature. Await abdominal/pelvis CT. Neurology has also been consulted, await input. Thank you, Dr. Giron for asking us to participate in this patient's care. Should you have further questions or concerns, please call. JACIEL LLOYD MD DR: TROY/lyla JOB#: [id number] / [id number]
[2016-06-11 07:00] VITALS: BP 117/76
[2016-06-11] MEDS: PANTOPRAZOLE IV PUSH 40 MG VIAL. IVP SCH (07:30)
[2016-06-11] MEDS: ASPIRIN 81 MG TAB.CHEW PO SCH (08:00)
[2016-06-11] MEDS: GLIPIZIDE ER 5 MG TAB.ER.24 PO SCH (08:00)
--- NOTE | 2016-06-11 08:29 | RAD ---
EXAM: Chest one view. HISTORY: Pneumothorax. COMPARISON: 06/10/2016. FINDINGS: A frontal view of the chest is obtained. A small right pneumothorax persists. There are multiple right lateral rib fractures. The right hemidiaphragm is mildly elevated. There is no clear pleural effusion. The heart is not enlarged. There are atherosclerotic calcifications of the aorta. IMPRESSION: 1. Stable small right pneumothorax. Multiple right lateral rib fractures.
[2016-06-11] MEDS: LISINOPRIL 5 MG TABLET. PO SCH (09:00)
[2016-06-11] MEDS: DULOXETINE HCL 30 MG CAPSULE.DR. PO SCH (09:00)
[2016-06-11] MEDS: MULTIVITAMIN with MINERAL TABLET. PO SCH (09:00)
[2016-06-11] MEDS: LIDOCAINE (700MG/PATCH) PATCH. TD SCH (09:00)
[2016-06-11] MEDS: DOCUSATE SODIUM 100 MG CAPSULE PO SCH (09:00)
[2016-06-11] MEDS: CALCIUM CARB/VIT D3 500/200 TABLET PO SCH (09:00)
[2016-06-11] MEDS: OMEGA-3 FATTY ACIDS/FISH OIL 1,000 MG CAPSULE. PO SCH (09:00)
--- NOTE | 2016-06-11 09:25 | PDOC ---
Infectious Disease Note Subjective Subjective pt is still not awake or appropriate, off and on opens eyes ROS ROS unable to do no n/v/d Vital Sign Vital Signs Vital Signs Date Time Temp Pulse Resp B/P Pulse Ox O2 Delivery O2 Flow Rate FiO2 06/11/16 07:00 98.8 82 18 117/76 92 Room Air 98.8 Physical Exam PHYSICAL EXAM GENERAL: NAD, lethargic HEENT: PERRL, OC/OP NECK: Supple, no JVD, no LN LUNGS: Clear HEART: S1S2, no gallop, no murmur ABD: Soft, NT, no organomegaly, no rebound EXT: No edema, no cyanosis MANIFEST CLERK: lethargic, moves all ext , does not follow command SKIN: No rash IV: ok Labs Lab Laboratory Tests Test 06/10/16 11:40 06/10/16 12:10 06/10/16 16:49 06/10/16 20:40 Glucose (Fingerstick) 296mg/dL (70-99) 269mg/dL (70-99) 247mg/dL (70-99) Lactic Acid Level 3.3mmol/L (0.4-2.0) Test 06/11/16 04:50 06/11/16 06:02 06/11/16 07:31 White Blood Count 14.6x10^3/uL (4.0-11.0) Red Blood Count 3.92x10^6/uL (3.50-5.40) Hemoglobin 12.0g/dL (12.0-15.5) Hematocrit 37.0% (36.0-47.0) Mean Corpuscular Volume 94fL (79-100) Mean Corpuscular Hemoglobin 31pg (25-35) Mean Corpuscular Hemoglobin Concent 32g/dL (31-37) Red Cell Distribution Width 13.3% (11.5-14.5) Platelet Count 204x10^3/uL (140-400) Neutrophils (%) (Auto) 84% (31-73) Lymphocytes (%) (Auto) 10% (24-48) Monocytes (%) (Auto) 6% (0-9) Eosinophils (%) (Auto) 0% (0-3) Basophils (%) (Auto) 0% (0-3) Neutrophils # (Auto) 12.3x10^3uL (1.8-7.7) Lymphocytes # (Auto) 1.4x10^3/uL (1.0-4.8) Monocytes # (Auto) 0.8x10^3/uL (0.0-1.1) Eosinophils # (Auto) 0.0x10^3/uL (0.0-0.7) Basophils # (Auto) 0.1x10^3/uL (0.0-0.2) Sodium Level 128mmol/L (136-145) 141mmol/L (136-145) Potassium Level 7.3mmol/L (3.5-5.1) 4.9mmol/L (3.5-5.1) Chloride Level 101mmol/L (98-107) 105mmol/L (98-107) Carbon Dioxide Level 20mmol/L (21-32) 27mmol/L (21-32) Anion Gap 7 (6-14) 9 (6-14) Blood Urea Nitrogen 43mg/dL (7-20) 53mg/dL (7-20) Creatinine 1.1mg/dL (0.6-1.0) 1.4mg/dL (0.6-1.0) Estimated GFR (Cockcroft-Gault) 47.6 36.0 Glucose Level 620mg/dL (70-99) 217mg/dL (70-99) Calcium Level 8.3mg/dL (8.5-10.1) 9.8mg/dL (8.5-10.1) BUN/Creatinine Ratio 38 (6-20) Total Bilirubin 0.6mg/dL (0.2-1.0) Aspartate Amino Transf (AST/SGOT) 17U/L (15-37) Alanine Aminotransferase (ALT/SGPT) 21U/L (14-59) Alkaline Phosphatase 87U/L (46-116) Total Protein 6.7g/dL (6.4-8.2) Albumin 2.6g/dL (3.4-5.0) Albumin/Globulin Ratio 0.6 (1.0-1.7) Glucose (Fingerstick) 209mg/dL (70-99) Objective Assessment ? sepsis Leukocytosis Acute encephalopathy Bloody diarrhea ANT Multiple rib fractures post mechanical fall DM Type II CAD h/o CVA Recent UTI on cipro Plan Plan of Care Zosyn and flagyl Check stool c. diff BC x 2 Monitor WBC, Cr and Temp d/w daughter, d/w ALEXX Thakkar LP, MD Jun 11, 2016 09:25
[2016-06-11] MEDS: INSULIN ASPART 300 UNITS/3 ML INSULN.PEN SQ SCH ×3 (09:47→17:00)
[2016-06-11] MEDS: FLUTICASONE 50MCG/NASAL SPRAY 16GM BOTTLE. NS SCH (09:49)
--- NOTE | 2016-06-11 09:59 | PDOC ---
PROGRESS NOTES Assessment Assessment MS changes. Lethargy. Difficult talking. Falls, right chest 6th to 9th rib fractures. Leukocytosis. Renal failure. Hyperkalemia. Hyperglycemia, glucose 334-620 UTI CAD DM HTN HLD Obesity No evidence of acute CVA this time. RECOMMENDATIONS/PLAN: Treat medical and surgical problems. Agree with ID for LP for CSF exam. Ovoid Narcotics as possible. Discussed in detail with her family at bedside. Brain MRI w/o contrast performed showed no evidence of CVA this time. Contrast not given due to renal failure. HISTORY OF THE PRESENT ILLNESS: 81-y-old female patient with above medical diseases had a mechanical fall on her right side of chest. She was brought to the ER of [facility] and was found to have right 6th to 9th rib fractures. She has been lethargic, decreased response, difficult talking, so Neurology was called for consultation. Patient was not able to provide history during neurology consult due to her mental statu changes. PAST MEDICAL HISTORY: Please see above. PAST SURGERY HISTORY: Cardiac stent placement. Left mastectomy Hysterectomy ALLERGY: Reviewed. MEDICATIONS: Refer to [facility] FAMILY HISTORY: Non contributory. SOCIAL HISTORY: Lives at home. Denies smoking, drinking, and illicit drug use. REVIEW OF SYSTEMS: Constitutional: No malnutrition, weight loss, cachexia. Head: No traumatic brain or head injury. Skin: No edema, or rash. Ear: No infection, tinnitus. Eyes: No vision loss or color blindness. Nose: No bleeding or purulent discharges. Hearing: Mild hearing decrease. Neck: No injury. Breast: Left mastectomy. Cardiac: CAD, stent placement, HTN, HLD. Pulmonary: No COPD. GI: No GI ulcer, GI bleeding. Urinary/genital: UTI. Endocrinologic: Diabetes Mellitus, obesity. Skeletomuscular: No muscular atrophy, deformity. Neurological: see HP. Psychiatric: Denies drug use/abuse. Otherwise, not [id number] review of systems. PHYSICAL EXAMINATION: General appearance is in acute distress. HEENT: Normocephalic and nontraumatic. Eyes, nose, ears, and throat are unremarkable. Neck is supple. No lymphadenopathy. No crepitus. Cardiovascular: S1, S2, regular rate and rhythm. Pulmonary: Clear to auscultation bilaterally. Abdomen: Bowel sounds are positive. Extremities: No rash, lesions, or edema. No restriction of range of motion NEUROLOGICAL EXAMINATION: Angels sleepiness but arousable. Not oriented to time, place and person. PERRL. EOMI. CN: no acute focal findings. Muscle tone: within normal. Muscle strength: 4+ DTR: 1-2 Plantar reflex: Neutral response bilaterally Gait: not examined in bed. Sensory exam: withdrew to stimuli. Not able to access cerebellar signs due to not follow commands. She was unable to perform F-T-N test. Objective Objective Vital Signs Date Time Temp Pulse Resp B/P Pulse Ox O2 Delivery O2 Flow Rate FiO2 06/11/16 07:00 98.8 82 18 117/76 92 Room Air 98.8 Intake and Output 06/11/16 07:00 Intake Total 200 ml Balance 200 ml Intake Oral 0 ml IV Total 200 ml # Voids 5 Vitals Signs Vitals VS - Last 72 Hours, by Label Date Time Temp Pulse Resp B/P Pulse Ox O2 Delivery O2 Flow Rate FiO2 06/11/16 07:00 98.8 82 18 117/76 92 Room Air 98.8 06/11/16 03:15 98.6 80 18 154/62 94 Room Air 98.6 06/10/16 23:15 98.6 80 18 111/52 91 Room Air 98.6 06/10/16 20:00 Room Air 06/10/16 19:15 99.3 86 18 107/50 90 Room Air 99.3 06/10/16 15:00 98.2 57 20 147/90 91 Room Air 98.2 06/10/16 11:00 97.4 86 20 109/49 92 Room Air 97.4 06/10/16 09:00 86 109/49 06/10/16 08:00 Room Air 06/10/16 07:00 98.4 85 20 146/67 91 Room Air 98.4 Laboratory Laboratory Laboratory Tests Test 06/10/16 11:40 06/10/16 12:10 06/10/16 16:49 06/10/16 20:40 Glucose (Fingerstick) 296mg/dL (70-99) 269mg/dL (70-99) 247mg/dL (70-99) Lactic Acid Level 3.3mmol/L (0.4-2.0) Test 06/11/16 04:50 06/11/16 06:02 06/11/16 07:31 White Blood Count 14.6x10^3/uL (4.0-11.0) Red Blood Count 3.92x10^6/uL (3.50-5.40) Hemoglobin 12.0g/dL (12.0-15.5) Hematocrit 37.0% (36.0-47.0) Mean Corpuscular Volume 94fL (79-100) Mean Corpuscular Hemoglobin 31pg (25-35) Mean Corpuscular Hemoglobin Concent 32g/dL (31-37) Red Cell Distribution Width 13.3% (11.5-14.5) Platelet Count 204x10^3/uL (140-400) Neutrophils (%) (Auto) 84% (31-73) Lymphocytes (%) (Auto) 10% (24-48) Monocytes (%) (Auto) 6% (0-9) Eosinophils (%) (Auto) 0% (0-3) Basophils (%) (Auto) 0% (0-3) Neutrophils # (Auto) 12.3x10^3uL (1.8-7.7) Lymphocytes # (Auto) 1.4x10^3/uL (1.0-4.8) Monocytes # (Auto) 0.8x10^3/uL (0.0-1.1) Eosinophils # (Auto) 0.0x10^3/uL (0.0-0.7) Basophils # (Auto) 0.1x10^3/uL (0.0-0.2) Sodium Level 128mmol/L (136-145) 141mmol/L (136-145) Potassium Level 7.3mmol/L (3.5-5.1) 4.9mmol/L (3.5-5.1) Chloride Level 101mmol/L (98-107) 105mmol/L (98-107) Carbon Dioxide Level 20mmol/L (21-32) 27mmol/L (21-32) Anion Gap 7 (6-14) 9 (6-14) Blood Urea Nitrogen 43mg/dL (7-20) 53mg/dL (7-20) Creatinine 1.1mg/dL (0.6-1.0) 1.4mg/dL (0.6-1.0) Estimated GFR (Cockcroft-Gault) 47.6 36.0 Glucose Level 620mg/dL (70-99) 217mg/dL (70-99) Calcium Level 8.3mg/dL (8.5-10.1) 9.8mg/dL (8.5-10.1) BUN/Creatinine Ratio 38 (6-20) Total Bilirubin 0.6mg/dL (0.2-1.0) Aspartate Amino Transf (AST/SGOT) 17U/L (15-37) Alanine Aminotransferase (ALT/SGPT) 21U/L (14-59) Alkaline Phosphatase 87U/L (46-116) Total Protein 6.7g/dL (6.4-8.2) Albumin 2.6g/dL (3.4-5.0) Albumin/Globulin Ratio 0.6 (1.0-1.7) Glucose (Fingerstick) 209mg/dL (70-99) Microbiology 06/08/16 Urine Culture - Final, Complete 06/08/16 Urine Culture Result 1 (ALEJO) - Final, Complete Medication Medications Current Medications Amino Acids/ Electrolytes/ Dextrose 1,000 ml @ 75 mls/hr [id number] PRN IV . Last administered on 06/11/16 02:26; Start 06/10/16 at 11:00 Daptomycin 500 mg/ Sodium Chloride 50 ml @ 100 mls/hr Q24H IV Last administered on 06/10/16 14:56; Start 06/10/16 at 14:00; Stop 06/10/16 at 18:00; Status DC Lorazepam (Ativan) 1 mg PRN Q4HRS PRN IV ANXIETY / AGITATION Last administered on 06/10/16 17:28; Start 06/10/16 at 17:00 Metronidazole (FLAGYL 500Mmg PREMIX) 100 ml @ 100 mls/hr Q8H IV Last administered on 06/11/16 00:08; Start 06/10/16 at 16:00 Naloxone HCl (Narcan) 0.4 mg PRN Q2MIN PRN IV SEE COMMENTS; Start 06/10/16 at 11 :30 Naloxone HCl 0.4 mg 0.4 mg 1X ONCE IV Last administered on 06/10/16 12:07; Start 06/10/16 at 12:00; Stop 06/10/16 at 12:01; Status DC Pantoprazole Sodium 40 mg 40 mg DAILYAC IVP Last administered on 06/10/16 12:03 ; Start 06/10/16 at 11:00 Piperacillin Sod/ Tazobactam Sod/ Sodium Chloride (Zosyn/Iv Sodium Chloride 0.9 % 50ml) 50 ml @ 100 mls/hr Q6HRS IV Last administered on 06/11/16 06:02; Start 06/10/16 at 12:00 Sodium Chloride (Iv Sodium Chloride 0.9% 1000ml Bag) 1,000 ml @ 75 mls/hr [id number] IV Last administered on 06/10/16 11:00; Start 06/10/16 at 11:00 Comment Review of Relevant I have reviewed the following items quincy (where applicable) has been applied. SOLIS WOLF MD Jun 11, 2016 09:59
[2016-06-11 11:00] VITALS: BP 139/63
--- NOTE | 2016-06-11 11:54 | PDOC ---
Objective: Objective: Per RN - confused, no further bleeding, going for PICC and LP. Vital Signs: Vital Signs Date Time Temp Pulse Resp B/P Pulse Ox O2 Delivery O2 Flow Rate FiO2 06/11/16 11:00 98.1 72 16 139/63 90 Room Air 98.1 Labs: Laboratory Tests Test 06/10/16 12:10 06/10/16 16:49 06/10/16 20:40 06/11/16 04:50 Lactic Acid Level 3.3mmol/L Glucose (Fingerstick) 269mg/dL 247mg/dL White Blood Count 14.6x10^3/uL Red Blood Count 3.92x10^6/uL Hemoglobin 12.0g/dL Hematocrit 37.0% Mean Corpuscular Volume 94fL Mean Corpuscular Hemoglobin 31pg Mean Corpuscular Hemoglobin Concent 32g/dL Red Cell Distribution Width 13.3% Platelet Count 204x10^3/uL Neutrophils (%) (Auto) 84% Lymphocytes (%) (Auto) 10% Monocytes (%) (Auto) 6% Eosinophils (%) (Auto) 0% Basophils (%) (Auto) 0% Neutrophils # (Auto) 12.3x10^3uL Lymphocytes # (Auto) 1.4x10^3/uL Monocytes # (Auto) 0.8x10^3/uL Eosinophils # (Auto) 0.0x10^3/uL Basophils # (Auto) 0.1x10^3/uL Sodium Level 128mmol/L Potassium Level 7.3mmol/L Chloride Level 101mmol/L Carbon Dioxide Level 20mmol/L Anion Gap 7 Blood Urea Nitrogen 43mg/dL Creatinine 1.1mg/dL Estimated GFR (Cockcroft-Gault) 47.6 Glucose Level 620mg/dL Calcium Level 8.3mg/dL Test 06/11/16 06:02 06/11/16 07:31 Sodium Level 141mmol/L Potassium Level 4.9mmol/L Chloride Level 105mmol/L Carbon Dioxide Level 27mmol/L Anion Gap 9 Blood Urea Nitrogen 53mg/dL Creatinine 1.4mg/dL Estimated GFR (Cockcroft-Gault) 36.0 BUN/Creatinine Ratio 38 Glucose Level 217mg/dL Calcium Level 9.8mg/dL Total Bilirubin 0.6mg/dL Aspartate Amino Transf (AST/SGOT) 17U/L Alanine Aminotransferase (ALT/SGPT) 21U/L Alkaline Phosphatase 87U/L Total Protein 6.7g/dL Albumin 2.6g/dL Albumin/Globulin Ratio 0.6 Glucose (Fingerstick) 209mg/dL Imaging: CT A/P 06/10/16 Impression: 1. Partially visualized right basal pneumothorax. 2. Displaced and nondisplaced right rib fractures. 3. Diffuse thickening with inflammatory fat stranding identified surrounding the distal transverse colon, descending colon and sigmoid colon likely colitis. 4. Mild right lung base airspace opacities likely atelectasis or infiltrate. Brain MRI 06/10/16 IMPRESSION - Limited exam. No apparent acute intracranial hemorrhage, mass or acute infarct. - Mild to moderate chronic small vessel ischemic changes and atrophy, similar to prior study. - Mild sinus disease with nonspecific opacification of the bilateral mastoid air cells. CXR 06/11/16 IMPRESSION: 1. Stable small right pneumothorax. Multiple right lateral rib fractures. PE: GEN: NAD LUNGS: clear anteriorly HEART: RRR ABD: BS+, S/ND/NT NEURO/PSYCH: opens eyes to her names, mumbles A/P: Hematochezia - no recurrence -?ischemic colitis Pneumothorax, rib fractures AMS Leukocytosis -- LP today. Other per Dr. Gregory. OVI LAKHANI Jun 11, 2016 11:54
--- NOTE | 2016-06-11 13:38 | PDOC ---
PULMONARY PROGRESS NOTES Subjective sleepy ,hard to arouse Vitals Vital Signs Date Time Temp Pulse Resp B/P Pulse Ox O2 Delivery O2 Flow Rate FiO2 06/11/16 11:00 98.1 72 16 139/63 90 Room Air 98.1 General: Lethargic HEENT: Other Lungs: Clear Cardiovascular: S1, S2 Abdomen: Soft Extremities: No Edema Skin: Warm Labs Laboratory Tests Test 06/09/16 21:01 06/10/16 05:05 06/10/16 06:30 06/10/16 07:39 Glucose (Fingerstick) 218mg/dL (70-99) 334mg/dL (70-99) White Blood Count 26.2x10^3/uL (4.0-11.0) Red Blood Count 5.00x10^6/uL (3.50-5.40) Hemoglobin 15.3g/dL (12.0-15.5) Hematocrit 47.0% (36.0-47.0) Mean Corpuscular Volume 94fL (79-100) Mean Corpuscular Hemoglobin 31pg (25-35) Mean Corpuscular Hemoglobin Concent 33g/dL (31-37) Red Cell Distribution Width 13.3% (11.5-14.5) Platelet Count 256x10^3/uL (140-400) Neutrophils (%) (Auto) 91% (31-73) Lymphocytes (%) (Auto) 4% (24-48) Monocytes (%) (Auto) 4% (0-9) Eosinophils (%) (Auto) 0% (0-3) Basophils (%) (Auto) 0% (0-3) Neutrophils # (Auto) 23.9x10^3uL (1.8-7.7) Lymphocytes # (Auto) 1.1x10^3/uL (1.0-4.8) Monocytes # (Auto) 1.2x10^3/uL (0.0-1.1) Eosinophils # (Auto) 0.0x10^3/uL (0.0-0.7) Basophils # (Auto) 0.0x10^3/uL (0.0-0.2) Segmented Neutrophils % 67% (35-66) Band Neutrophils % 23% (0-9) Lymphocytes % 6% (24-48) Monocytes % 3% (0-10) Metamyelocytes % 1% (0-0) Platelet Estimate Adequate (ADEQUATE) Sodium Level 138mmol/L (136-145) Potassium Level 5.1mmol/L (3.5-5.1) Chloride Level 101mmol/L (98-107) Carbon Dioxide Level 23mmol/L (21-32) Anion Gap 14 (6-14) Blood Urea Nitrogen 36mg/dL (7-20) Creatinine 1.9mg/dL (0.6-1.0) Estimated GFR (Cockcroft-Gault) 25.3 Glucose Level 321mg/dL (70-99) Calcium Level 10.8mg/dL (8.5-10.1) Creatine Kinase 62U/L (26-192) C-Reactive Protein High Sensitivity 129.47mg/L (0.00-3.00) Thyroid Stimulating Hormone (TSH) 2.180uIU/mL (0.358-3.74) Stool Occult Blood Positive (NEG) Test 06/10/16 11:40 06/10/16 12:10 06/10/16 16:49 06/10/16 20:40 Glucose (Fingerstick) 296mg/dL (70-99) 269mg/dL (70-99) 247mg/dL (70-99) Lactic Acid Level 3.3mmol/L (0.4-2.0) Test 06/11/16 04:50 06/11/16 06:02 06/11/16 07:31 06/11/16 10:22 White Blood Count 14.6x10^3/uL (4.0-11.0) Red Blood Count 3.92x10^6/uL (3.50-5.40) Hemoglobin 12.0g/dL (12.0-15.5) Hematocrit 37.0% (36.0-47.0) Mean Corpuscular Volume 94fL (79-100) Mean Corpuscular Hemoglobin 31pg (25-35) Mean Corpuscular Hemoglobin Concent 32g/dL (31-37) Red Cell Distribution Width 13.3% (11.5-14.5) Platelet Count 204x10^3/uL (140-400) Neutrophils (%) (Auto) 84% (31-73) Lymphocytes (%) (Auto) 10% (24-48) Monocytes (%) (Auto) 6% (0-9) Eosinophils (%) (Auto) 0% (0-3) Basophils (%) (Auto) 0% (0-3) Neutrophils # (Auto) 12.3x10^3uL (1.8-7.7) Lymphocytes # (Auto) 1.4x10^3/uL (1.0-4.8) Monocytes # (Auto) 0.8x10^3/uL (0.0-1.1) Eosinophils # (Auto) 0.0x10^3/uL (0.0-0.7) Basophils # (Auto) 0.1x10^3/uL (0.0-0.2) Sodium Level 128mmol/L (136-145) 141mmol/L (136-145) Potassium Level 7.3mmol/L (3.5-5.1) 4.9mmol/L (3.5-5.1) Chloride Level 101mmol/L (98-107) 105mmol/L (98-107) Carbon Dioxide Level 20mmol/L (21-32) 27mmol/L (21-32) Anion Gap 7 (6-14) 9 (6-14) Blood Urea Nitrogen 43mg/dL (7-20) 53mg/dL (7-20) Creatinine 1.1mg/dL (0.6-1.0) 1.4mg/dL (0.6-1.0) Estimated GFR (Cockcroft-Gault) 47.6 36.0 Glucose Level 620mg/dL (70-99) 217mg/dL (70-99) Calcium Level 8.3mg/dL (8.5-10.1) 9.8mg/dL (8.5-10.1) BUN/Creatinine Ratio 38 (6-20) Total Bilirubin 0.6mg/dL (0.2-1.0) Aspartate Amino Transf (AST/SGOT) 17U/L (15-37) Alanine Aminotransferase (ALT/SGPT) 21U/L (14-59) Alkaline Phosphatase 87U/L (46-116) Total Protein 6.7g/dL (6.4-8.2) Albumin 2.6g/dL (3.4-5.0) Albumin/Globulin Ratio 0.6 (1.0-1.7) Glucose (Fingerstick) 209mg/dL (70-99) 199mg/dL (70-99) Test 06/11/16 12:13 Glucose (Fingerstick) 208mg/dL (70-99) Laboratory Tests Test 06/10/16 16:49 06/10/16 20:40 06/11/16 04:50 06/11/16 06:02 Glucose (Fingerstick) 269mg/dL (70-99) 247mg/dL (70-99) White Blood Count 14.6x10^3/uL (4.0-11.0) Red Blood Count 3.92x10^6/uL (3.50-5.40) Hemoglobin 12.0g/dL (12.0-15.5) Hematocrit 37.0% (36.0-47.0) Mean Corpuscular Volume 94fL (79-100) Mean Corpuscular Hemoglobin 31pg (25-35) Mean Corpuscular Hemoglobin Concent 32g/dL (31-37) Red Cell Distribution Width 13.3% (11.5-14.5) Platelet Count 204x10^3/uL (140-400) Neutrophils (%) (Auto) 84% (31-73) Lymphocytes (%) (Auto) 10% (24-48) Monocytes (%) (Auto) 6% (0-9) Eosinophils (%) (Auto) 0% (0-3) Basophils (%) (Auto) 0% (0-3) Neutrophils # (Auto) 12.3x10^3uL (1.8-7.7) Lymphocytes # (Auto) 1.4x10^3/uL (1.0-4.8) Monocytes # (Auto) 0.8x10^3/uL (0.0-1.1) Eosinophils # (Auto) 0.0x10^3/uL (0.0-0.7) Basophils # (Auto) 0.1x10^3/uL (0.0-0.2) Sodium Level 128mmol/L (136-145) 141mmol/L (136-145) Potassium Level 7.3mmol/L (3.5-5.1) 4.9mmol/L (3.5-5.1) Chloride Level 101mmol/L (98-107) 105mmol/L (98-107) Carbon Dioxide Level 20mmol/L (21-32) 27mmol/L (21-32) Anion Gap 7 (6-14) 9 (6-14) Blood Urea Nitrogen 43mg/dL (7-20) 53mg/dL (7-20) Creatinine 1.1mg/dL (0.6-1.0) 1.4mg/dL (0.6-1.0) Estimated GFR (Cockcroft-Gault) 47.6 36.0 Glucose Level 620mg/dL (70-99) 217mg/dL (70-99) Calcium Level 8.3mg/dL (8.5-10.1) 9.8mg/dL (8.5-10.1) BUN/Creatinine Ratio 38 (6-20) Total Bilirubin 0.6mg/dL (0.2-1.0) Aspartate Amino Transf (AST/SGOT) 17U/L (15-37) Alanine Aminotransferase (ALT/SGPT) 21U/L (14-59) Alkaline Phosphatase 87U/L (46-116) Total Protein 6.7g/dL (6.4-8.2) Albumin 2.6g/dL (3.4-5.0) Albumin/Globulin Ratio 0.6 (1.0-1.7) Test 06/11/16 07:31 06/11/16 10:22 06/11/16 12:13 Glucose (Fingerstick) 209mg/dL (70-99) 199mg/dL (70-99) 208mg/dL (70-99) Medications Active Scripts Medications Dose Route/Sig Days Date Category Ciprofloxacin 250 Mg/5 Ml Christina..rec 250 Mg PO BID 02/22/16 Rx Children's Aspirin (Aspirin) 81 Mg Tab.chew 81 Mg PO DAILYWBKFT 30 01/04/16 Rx Glipizide Er (Glipizide) 5 Mg Tab.er.24 10 Mg PO DAILY 04/25/15 Rx Pravachol (Pravastatin Sodium) 80 Mg Tablet 80 Mg PO DAILY 05/12/14 Reported Multi-Vitamin Daily (Multivitamin) 1 Each Tablet 1 Each PO DAILY 05/12/14 Reported Lisinopril 5 Mg Tablet 5 Mg PO DAILY 05/12/14 Reported Flonase (Fluticasone Propionate) 16 Gm [place].susp 2 [place] NS DAILY 05/12/14 Reported Famotidine 40 Mg Tablet 40 Mg PO DAILY 05/12/14 Reported Cymbalta (Duloxetine Hcl) 60 Mg Capsule.dr 60 Mg PO DAILY 05/12/14 Reported Docusate Sodium 100 Mg Capsule 100 Mg PO DAILY 05/12/14 Reported Fish Oil Concentrate Softgel (Docosahexanoic Acid/Epa) 1 Each Capsule 1 Each PO DAILY 05/12/14 Reported Caltrate 600 + D Tablet (Calcium Carbonate/Vitamin D3) 1 Each Tablet 1 Each PO DAILY 05/12/14 Reported Impression . Traumatic small right PTX, no intervention needed s/p fall, multiple right rib fractures MS changes. suspect could be due to 1 mg IV ativan received last pm, w/u per neurology right chest 6th to 9th rib fractures. Leukocytosis. Renal failure. Hyperkalemia. Hyperglycemia, glucose 334-620 Plan . From pulmonary standpoint ,no intervention CXR improving 3/6 d/c benzo and narcotics. try flumazenil Ovoid Narcotics as possible. Discussed in detail with her family/ RN at bedside. CESAR ESPINOZA MD Jun 11, 2016 13:38
--- NOTE | 2016-06-11 14:29 | CONS ---
DATE OF CONSULTATION: 06/10/2016 ATTENDING PHYSICIAN: Dr. Richelle Umaña. REASON FOR CONSULTATION: The patient seen in pulmonary consultation at the request of Dr. Giron for CT abdomen and pelvis revealing partially visualized right basilar pneumothorax. HISTORY OF PRESENT ILLNESS: The patient is an 81-year-old that presents from assisted living. Apparently, she was attempting to move some boxes in the bathroom, foot got stuck, and she hit the right side of the ribs on the edge of the box. No head trauma and had severe pain afterwards. X-ray showed rib fractures 6 through 9. The initial rib fractures revealed no pneumothorax. Today, the patient underwent CT abdomen and pelvis revealing a pneumothorax. I was asked to see in consultation. I am unable to obtain any information from the patient herself. She is very lethargic. She received some narcotics for pain. She is currently being seen by neurology. She is in no respiratory distress. She is on room air. I have ordered a stat portable chest x-ray. I reviewed and there is a small right-sided pneumothorax. PAST MEDICAL HISTORY: Obtained by reviewing the current documentation, has a history of coronary artery disease, hypertension, hyperlipidemia, peripheral neuropathy, TIA, UTI. PAST SURGICAL HISTORY: Status post mastectomy, hysterectomy. ALLERGIES: METFORMIN. SOCIAL HISTORY: She has never smoked. Her daughter was at the bedside, provided the history. REVIEW OF SYSTEMS: Unobtainable secondary to patient's condition. PHYSICAL EXAMINATION: VITAL SIGNS: Since admission, she has been afebrile. She is on room air. GENERAL: She is in no respiratory distress. HEENT: Eyes, the sclerae was nonicteric. NECK: Jugular venous distention was not elevated. No subcutaneous emphysema. CHEST: Full expansion. LUNGS: Adequate airway flow, no wheezes. CARDIOVASCULAR: Regular rate and rhythm with S1, S2, no S3. ABDOMEN: Soft, nontender, nondistended. EXTREMITIES: No clubbing, cyanosis, or edema. NEUROLOGIC: The patient was very sleepy and lethargic. She will open up her eyes to stimulus, but would fall right back asleep. A detailed neuro exam was not performed. LABORATORY DATA: White count was elevated. Electrolytes were noted. BUN and creatinine were noted; BUN is elevated, creatinine was 1.0. Repeat BUN and creatinine increased. Chest x-ray as indicated above right-sided pneumothorax. IMPRESSION: 1. Traumatic right-sided pneumothorax initially seen on CT abdomen and pelvis confirmed with portable chest x-ray. It is relatively small, and the patient is asymptomatic. 2. Leukocytosis, positive sepsis. 3. Acute encephalopathy, suspect combination of toxic and metabolic. 4. Bloody diarrhea. 5. Multiple rib fractures status post mechanical fall. 6. CT abdomen and pelvis revealing evidence of colitis and airspace disease. 7. Possible pneumonia. PLAN: 1. The patient has been seen by Infectious Disease Service. She is on broad coverage antibiotics, which will cover any pathogen in the lungs. 2. Repeat portable chest x-ray in the a.m. 3. No need for pneumothorax at this time. 4. Avoid narcotics. The above was discussed with daughter at the bedside. I do appreciate the privilege in sharing in this patient's care. ASHLIE SERRANO MD DR: OSCAR/lyla JOB#: [id number] / [id number]
[2016-06-11] MEDS ORDERED: FLUMAZENIL 0.5 MG/5 ML VIAL. IV ONE (14:30)
--- NOTE | 2016-06-11 14:50 | PDOC ---
PROGRESS NOTES Chief Complaint Chief Complaint acute metabolic encephalopathy 1. Right rib fxs number 6-9 2. Altered Mental Status 3. Leukocytosis 4. H/o GERD 5. 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 Scoiliosis 8. HTN 9. Diabetes History of Present Illness History of Present Illness s/p ativan last night should try to limit anxiolytic meds Patient was lying in bed she has acute mental status change, lethargic, Vitals Vitals Vital Signs Date Time Temp Pulse Resp B/P Pulse Ox O2 Delivery O2 Flow Rate FiO2 06/11/16 11:00 98.1 72 16 139/63 90 Room Air 98.1 Physical Exam General: No acute distress, Other (lethergic, open eyes to pain stimuli) Heart: Regular rate, Normal S1, Normal S2, No murmurs Lungs: Clear Abdomen: Soft, No masses, Other (Tender, w. some guarding) Extremities: No cyanosis, No edema Skin: No breakdown, No significant lesion Labs LABS Laboratory Tests Test 06/10/16 16:49 06/10/16 20:40 06/11/16 04:50 06/11/16 06:02 Glucose (Fingerstick) 269mg/dL (70-99) 247mg/dL (70-99) White Blood Count 14.6x10^3/uL (4.0-11.0) Red Blood Count 3.92x10^6/uL (3.50-5.40) Hemoglobin 12.0g/dL (12.0-15.5) Hematocrit 37.0% (36.0-47.0) Mean Corpuscular Volume 94fL (79-100) Mean Corpuscular Hemoglobin 31pg (25-35) Mean Corpuscular Hemoglobin Concent 32g/dL (31-37) Red Cell Distribution Width 13.3% (11.5-14.5) Platelet Count 204x10^3/uL (140-400) Neutrophils (%) (Auto) 84% (31-73) Lymphocytes (%) (Auto) 10% (24-48) Monocytes (%) (Auto) 6% (0-9) Eosinophils (%) (Auto) 0% (0-3) Basophils (%) (Auto) 0% (0-3) Neutrophils # (Auto) 12.3x10^3uL (1.8-7.7) Lymphocytes # (Auto) 1.4x10^3/uL (1.0-4.8) Monocytes # (Auto) 0.8x10^3/uL (0.0-1.1) Eosinophils # (Auto) 0.0x10^3/uL (0.0-0.7) Basophils # (Auto) 0.1x10^3/uL (0.0-0.2) Sodium Level 128mmol/L (136-145) 141mmol/L (136-145) Potassium Level 7.3mmol/L (3.5-5.1) 4.9mmol/L (3.5-5.1) Chloride Level 101mmol/L (98-107) 105mmol/L (98-107) Carbon Dioxide Level 20mmol/L (21-32) 27mmol/L (21-32) Anion Gap 7 (6-14) 9 (6-14) Blood Urea Nitrogen 43mg/dL (7-20) 53mg/dL (7-20) Creatinine 1.1mg/dL (0.6-1.0) 1.4mg/dL (0.6-1.0) Estimated GFR (Cockcroft-Gault) 47.6 36.0 Glucose Level 620mg/dL (70-99) 217mg/dL (70-99) Calcium Level 8.3mg/dL (8.5-10.1) 9.8mg/dL (8.5-10.1) BUN/Creatinine Ratio 38 (6-20) Total Bilirubin 0.6mg/dL (0.2-1.0) Aspartate Amino Transf (AST/SGOT) 17U/L (15-37) Alanine Aminotransferase (ALT/SGPT) 21U/L (14-59) Alkaline Phosphatase 87U/L (46-116) Total Protein 6.7g/dL (6.4-8.2) Albumin 2.6g/dL (3.4-5.0) Albumin/Globulin Ratio 0.6 (1.0-1.7) Test 06/11/16 07:31 06/11/16 10:22 06/11/16 12:13 Glucose (Fingerstick) 209mg/dL (70-99) 199mg/dL (70-99) 208mg/dL (70-99) Assessment and Plan Assessmemt and Plan Problems Medical Problems: (1) Fall Status: Acute (2) Fall (on) (from) other stairs and steps, initial encounter Status: Acute (3) Ribs, multiple fractures Status: Acute Problems: Comment Review of Relevant I have reviewed the following items quincy (where applicable) has been applied. Labs Laboratory Tests Test 06/09/16 21:01 06/10/16 05:05 06/10/16 06:30 06/10/16 07:39 Glucose (Fingerstick) 218mg/dL (70-99) 334mg/dL (70-99) White Blood Count 26.2x10^3/uL (4.0-11.0) Red Blood Count 5.00x10^6/uL (3.50-5.40) Hemoglobin 15.3g/dL (12.0-15.5) Hematocrit 47.0% (36.0-47.0) Mean Corpuscular Volume 94fL (79-100) Mean Corpuscular Hemoglobin 31pg (25-35) Mean Corpuscular Hemoglobin Concent 33g/dL (31-37) Red Cell Distribution Width 13.3% (11.5-14.5) Platelet Count 256x10^3/uL (140-400) Neutrophils (%) (Auto) 91% (31-73) Lymphocytes (%) (Auto) 4% (24-48) Monocytes (%) (Auto) 4% (0-9) Eosinophils (%) (Auto) 0% (0-3) Basophils (%) (Auto) 0% (0-3) Neutrophils # (Auto) 23.9x10^3uL (1.8-7.7) Lymphocytes # (Auto) 1.1x10^3/uL (1.0-4.8) Monocytes # (Auto) 1.2x10^3/uL (0.0-1.1) Eosinophils # (Auto) 0.0x10^3/uL (0.0-0.7) Basophils # (Auto) 0.0x10^3/uL (0.0-0.2) Segmented Neutrophils % 67% (35-66) Band Neutrophils % 23% (0-9) Lymphocytes % 6% (24-48) Monocytes % 3% (0-10) Metamyelocytes % 1% (0-0) Platelet Estimate Adequate (ADEQUATE) Sodium Level 138mmol/L (136-145) Potassium Level 5.1mmol/L (3.5-5.1) Chloride Level 101mmol/L (98-107) Carbon Dioxide Level 23mmol/L (21-32) Anion Gap 14 (6-14) Blood Urea Nitrogen 36mg/dL (7-20) Creatinine 1.9mg/dL (0.6-1.0) Estimated GFR (Cockcroft-Gault) 25.3 Glucose Level 321mg/dL (70-99) Calcium Level 10.8mg/dL (8.5-10.1) Creatine Kinase 62U/L (26-192) C-Reactive Protein High Sensitivity 129.47mg/L (0.00-3.00) Thyroid Stimulating Hormone (TSH) 2.180uIU/mL (0.358-3.74) Stool Occult Blood Positive (NEG) Test 06/10/16 11:40 06/10/16 12:10 06/10/16 16:49 06/10/16 20:40 Glucose (Fingerstick) 296mg/dL (70-99) 269mg/dL (70-99) 247mg/dL (70-99) Lactic Acid Level 3.3mmol/L (0.4-2.0) Test 06/11/16 04:50 06/11/16 06:02 06/11/16 07:31 06/11/16 10:22 White Blood Count 14.6x10^3/uL (4.0-11.0) Red Blood Count 3.92x10^6/uL (3.50-5.40) Hemoglobin 12.0g/dL (12.0-15.5) Hematocrit 37.0% (36.0-47.0) Mean Corpuscular Volume 94fL (79-100) Mean Corpuscular Hemoglobin 31pg (25-35) Mean Corpuscular Hemoglobin Concent 32g/dL (31-37) Red Cell Distribution Width 13.3% (11.5-14.5) Platelet Count 204x10^3/uL (140-400) Neutrophils (%) (Auto) 84% (31-73) Lymphocytes (%) (Auto) 10% (24-48) Monocytes (%) (Auto) 6% (0-9) Eosinophils (%) (Auto) 0% (0-3) Basophils (%) (Auto) 0% (0-3) Neutrophils # (Auto) 12.3x10^3uL (1.8-7.7) Lymphocytes # (Auto) 1.4x10^3/uL (1.0-4.8) Monocytes # (Auto) 0.8x10^3/uL (0.0-1.1) Eosinophils # (Auto) 0.0x10^3/uL (0.0-0.7) Basophils # (Auto) 0.1x10^3/uL (0.0-0.2) Sodium Level 128mmol/L (136-145) 141mmol/L (136-145) Potassium Level 7.3mmol/L (3.5-5.1) 4.9mmol/L (3.5-5.1) Chloride Level 101mmol/L (98-107) 105mmol/L (98-107) Carbon Dioxide Level 20mmol/L (21-32) 27mmol/L (21-32) Anion Gap 7 (6-14) 9 (6-14) Blood Urea Nitrogen 43mg/dL (7-20) 53mg/dL (7-20) Creatinine 1.1mg/dL (0.6-1.0) 1.4mg/dL (0.6-1.0) Estimated GFR (Cockcroft-Gault) 47.6 36.0 Glucose Level 620mg/dL (70-99) 217mg/dL (70-99) Calcium Level 8.3mg/dL (8.5-10.1) 9.8mg/dL (8.5-10.1) BUN/Creatinine Ratio 38 (6-20) Total Bilirubin 0.6mg/dL (0.2-1.0) Aspartate Amino Transf (AST/SGOT) 17U/L (15-37) Alanine Aminotransferase (ALT/SGPT) 21U/L (14-59) Alkaline Phosphatase 87U/L (46-116) Total Protein 6.7g/dL (6.4-8.2) Albumin 2.6g/dL (3.4-5.0) Albumin/Globulin Ratio 0.6 (1.0-1.7) Glucose (Fingerstick) 209mg/dL (70-99) 199mg/dL (70-99) Test 06/11/16 12:13 Glucose (Fingerstick) 208mg/dL (70-99) Laboratory Tests Test 06/10/16 16:49 06/10/16 20:40 06/11/16 04:50 06/11/16 06:02 Glucose (Fingerstick) 269mg/dL (70-99) 247mg/dL (70-99) White Blood Count 14.6x10^3/uL (4.0-11.0) Red Blood Count 3.92x10^6/uL (3.50-5.40) Hemoglobin 12.0g/dL (12.0-15.5) Hematocrit 37.0% (36.0-47.0) Mean Corpuscular Volume 94fL (79-100) Mean Corpuscular Hemoglobin 31pg (25-35) Mean Corpuscular Hemoglobin Concent 32g/dL (31-37) Red Cell Distribution Width 13.3% (11.5-14.5) Platelet Count 204x10^3/uL (140-400) Neutrophils (%) (Auto) 84% (31-73) Lymphocytes (%) (Auto) 10% (24-48) Monocytes (%) (Auto) 6% (0-9) Eosinophils (%) (Auto) 0% (0-3) Basophils (%) (Auto) 0% (0-3) Neutrophils # (Auto) 12.3x10^3uL (1.8-7.7) Lymphocytes # (Auto) 1.4x10^3/uL (1.0-4.8) Monocytes # (Auto) 0.8x10^3/uL (0.0-1.1) Eosinophils # (Auto) 0.0x10^3/uL (0.0-0.7) Basophils # (Auto) 0.1x10^3/uL (0.0-0.2) Sodium Level 128mmol/L (136-145) 141mmol/L (136-145) Potassium Level 7.3mmol/L (3.5-5.1) 4.9mmol/L (3.5-5.1) Chloride Level 101mmol/L (98-107) 105mmol/L (98-107) Carbon Dioxide Level 20mmol/L (21-32) 27mmol/L (21-32) Anion Gap 7 (6-14) 9 (6-14) Blood Urea Nitrogen 43mg/dL (7-20) 53mg/dL (7-20) Creatinine 1.1mg/dL (0.6-1.0) 1.4mg/dL (0.6-1.0) Estimated GFR (Cockcroft-Gault) 47.6 36.0 Glucose Level 620mg/dL (70-99) 217mg/dL (70-99) Calcium Level 8.3mg/dL (8.5-10.1) 9.8mg/dL (8.5-10.1) BUN/Creatinine Ratio 38 (6-20) Total Bilirubin 0.6mg/dL (0.2-1.0) Aspartate Amino Transf (AST/SGOT) 17U/L (15-37) Alanine Aminotransferase (ALT/SGPT) 21U/L (14-59) Alkaline Phosphatase 87U/L (46-116) Total Protein 6.7g/dL (6.4-8.2) Albumin 2.6g/dL (3.4-5.0) Albumin/Globulin Ratio 0.6 (1.0-1.7) Test 06/11/16 07:31 06/11/16 10:22 06/11/16 12:13 Glucose (Fingerstick) 209mg/dL (70-99) 199mg/dL (70-99) 208mg/dL (70-99) Microbiology 06/10/16 Blood Culture - Preliminary, Resulted NO GROWTH AFTER 1 DAY 06/08/16 Urine Culture - Final, Complete 06/08/16 Urine Culture Result 1 (ALEJO) - Final, Complete Medications Current Medications Lidocaine (Lidoderm) 1 patch 1X ONCE TD Last administered on 06/08/16 09:12; Start 06/08/16 at 09:00; Stop 06/08/16 at 09:01; Status DC Acetaminophen (Tylenol) 1,000 mg 1X ONCE PO Last administered on 06/08/16 09: 12; Start 06/08/16 at 09:00; Stop 06/08/16 at 09:01; Status DC Oxycodone/ Acetaminophen (Percocet 5/325) 1 tab 1X ONCE PO Last administered on 06/08/16 10:00; Start 06/08/16 at 10:00; Stop 06/08/16 at 10:01; Status DC Ondansetron HCl (Zofran) 4 mg PRN Q6HRS PRN IV NAUSEA/VOMITING; Start 06/08/16 at 12:00 Al Hydrox/Mg Hydrox/Simethicone (Mylanta Plus Xs) 30 ml PRN Q3HRS PRN PO HEARTBURN / GAS; Start 06/08/16 at 12:00 Calcium Carbonate/ Glycine (Tums) 500 mg PRN Q3HRS PRN PO UPSET STOMACH; Start 06/08/16 at 12:00 Oxycodone HCl (Roxicodone) 5 mg PRN Q3HRS PRN PO BREAKTHROUGH PAIN; Start at 12:00 Morphine Sulfate 1 mg PRN Q2HR PRN IV PAIN; Start 06/08/16 at 12:00 Oxycodone/ Acetaminophen (Percocet 5/325) 1 tab PRN Q4HRS PRN PO MILD PAIN, 1ST CHOICE Last administered on 06/09/16 15:03; Start 06/08/16 at 12:00 Docusate Sodium (Colace) 100 mg BID PO ; Start 06/08/16 at 21:00; Status Cancel Magnesium Hydroxide (Milk Of Magnesia) 2,400 mg PRN Q12HR PRN PO CONSTIPATION; Start 06/08/16 at 12:00 Lactulose 20 gm PRN Q12HR PRN PO CONSTIPATION; Start 06/08/16 at 12:00 Bisacodyl (Dulcolax Supp) 10 mg PRN DAILY PRN MA CONSTIPATION; Start 06/08/16 at 12:00 Enoxaparin Sodium (Lovenox 40mg Syringe) 40 mg DAILY16 SQ Last administered on 06/09/16 15:03; Start 06/08/16 at 16:00; Stop 06/10/16 at 12:52; Status DC Lidocaine (Lidoderm) 1 patch DAILY TD Last administered on 06/09/16 07:41; Start 06/08/16 at 13:00 Aspirin (Children'S Aspirin) 81 mg DAILYWBKFT PO Last administered on 06/09/16 07:41; Start 06/08/16 at 13:00 Docusate Sodium (Colace) 100 mg DAILY PO Last administered on 06/09/16 09:00; Start 06/09/16 at 09:00 Fluticasone Propionate (Flonase) 2 spray DAILY NS Last administered on 09:49; Start 06/08/16 at 13:00 Glipizide (Glucotrol Er) 10 mg DAILY08 PO Last administered on 06/09/16 07:38; Start 06/08/16 at 13:00 Lisinopril (Prinivil) 5 mg DAILY PO Last administered on 06/09/16 07:39; Start 06/08/16 at 13:00 Calcium/Vitamin D (Oscal D 500mg/ 200uts) 1 tab DAILY PO Last administered on 07:39; Start 06/08/16 at 13:00 Fish Oil (Fish Oil) 1,000 mg DAILY PO Last administered on 06/09/16 07:38; Start 06/08/16 at 13:00 Duloxetine HCl (Cymbalta) 60 mg DAILY PO Last administered on 06/09/16 07:40; Start 06/08/16 at 13:00 Famotidine (Pepcid) 40 mg DAILY PO Last administered on 06/09/16 07:40; Start 06/08/16 at 13:00; Stop 06/10/16 at 11:55; Status DC Multivitamins/ Calcium (Thera M Plus) 1 tab DAILY PO Last administered on 07:39; Start 06/08/16 at 13:00 Atorvastatin Calcium (Lipitor) 20 mg QHS PO Last administered on 06/08/16 20:56 ; Start 06/08/16 at 21:00 Insulin Aspart (Novolog) 0-9 UNITS TIDWMEALS SQ Last administered on 06/11/16 12:23; Start 06/08/16 at 12:30 Dextrose 12.5 gm PRN Q15MIN PRN IV SEE COMMENTS; Start 06/08/16 at 12:15 Ondansetron HCl 4 mg 4 mg PRN Q8HRS PRN IV NAUSEA/VOMITING; Start 06/08/16 at 12 :45; Stop 06/09/16 at 12:44; Status DC Piperacillin Sod/ Tazobactam Sod/ Sodium Chloride (Zosyn/Iv Sodium Chloride 0.9 % 50ml) 50 ml @ 100 mls/hr Q6HRS IV Last administered on 06/11/16 12:12; Start 06/10/16 at 12:00 Pantoprazole Sodium 40 mg 40 mg DAILYAC IVP Last administered on 06/10/16 12:03 ; Start 06/10/16 at 11:00 Amino Acids/ Electrolytes/ Dextrose 1,000 ml @ 75 mls/hr [id number] PRN IV . Last administered on 06/11/16 02:26; Start 06/10/16 at 11:00 Sodium Chloride (Iv Sodium Chloride 0.9% 1000ml Bag) 1,000 ml @ 75 mls/hr [id number] IV Last administered on 06/10/16 11:00; Start 06/10/16 at 11:00 Naloxone HCl (Narcan) 0.4 mg PRN Q2MIN PRN IV SEE COMMENTS; Start 06/10/16 at 11 :30 Naloxone HCl 0.4 mg 0.4 mg 1X ONCE IV Last administered on 06/10/16 12:07; Start 06/10/16 at 12:00; Stop 06/10/16 at 12:01; Status DC Daptomycin 500 mg/ Sodium Chloride 50 ml @ 100 mls/hr Q24H IV Last administered on 06/10/16 14:56; Start 06/10/16 at 14:00; Stop 06/10/16 at 18:00; Status DC Metronidazole (FLAGYL 500Mmg PREMIX) 100 ml @ 100 mls/hr Q8H IV Last administered on 06/11/16 10:32; Start 06/10/16 at 16:00 Lorazepam (Ativan) 1 mg PRN Q4HRS PRN IV ANXIETY / AGITATION Last administered on 06/10/16 17:28; Start 06/10/16 at 17:00 Flumazenil (Romazicon) 0.1 mg 1X ONCE IV ; Start 06/11/16 at 14:30; Stop at 14:33; Status DC Active Scripts Active Ciprofloxacin 250 Mg/5 Ml Christina.mc.rec 250 Mg PO BID Children's Aspirin (Aspirin) 81 Mg Tab.chew 81 Mg PO DAILYWBKFT 30 Days Glipizide Er (Glipizide) 5 Mg Tab.er.24 10 Mg PO DAILY Reported Pravachol (Pravastatin Sodium) 80 Mg Tablet 80 Mg PO DAILY Multi-Vitamin Daily (Multivitamin) 1 Each Tablet 1 Each PO DAILY Lisinopril 5 Mg Tablet 5 Mg PO DAILY Flonase (Fluticasone Propionate) 16 Gm Alvarado.susp 2 Alvarado NS DAILY Famotidine 40 Mg Tablet 40 Mg PO DAILY Cymbalta (Duloxetine Hcl) 60 Mg Capsule.dr 60 Mg PO DAILY Docusate Sodium 100 Mg Capsule 100 Mg PO DAILY Fish Oil Concentrate Softgel (Docosahexanoic Acid/Epa) 1 Each Capsule 1 Each PO DAILY Caltrate 600 + D Tablet (Calcium Carbonate/Vitamin D3) 1 Each Tablet 1 Each PO DAILY Vitals/I & O Vital Sign - Last 24 Hours 06/10/16 06/10/16 06/10/16 06/10/16 15:00 19:15 20:00 23:15 Temp 98.2 99.3 98.6 98.2 99.3 98.6 Pulse 57 86 80 Resp 18 B/P 147/90 107/50 111/52 Pulse Ox 91 90 91 O2 Delivery Room Air Room Air Room Air Room Air 06/11/16 06/11/16 06/11/16 03:15 07:00 11:00 Temp 98.6 98.8 98.1 98.6 98.8 98.1 Pulse 80 82 72 Resp 18 18 16 B/P 154/62 117/76 139/63 Pulse Ox 94 92 90 O2 Delivery Room Air Room Air Room Air Intake and Output 06/10/16 06/10/16 06/11/16 15:00 23:00 07:00 Intake Total 50 ml 150 ml 0 ml Balance 50 ml 150 ml 0 ml TAI CELESTE MD Jun 11, 2016 14:50
[2016-06-11 15:00] VITALS: BP 148/41
[2016-06-11 16:12] LABS: INR 1.2 (0.8-1.1); PROTHROMBIN TIME PATIENT 14.6 SEC (11.7-14.0)
[2016-06-11 19:20] VITALS: BP 130/51
[2016-06-11] MEDS: ATORVASTATIN CALCIUM 20 MG TABLET PO SCH (21:00)
[2016-06-11 23:15] VITALS: BP 154/70
[2016-06-12] MEDS: METRONIDAZOLE 500mg PREMIX 100 ML IV SCH ×2 (00:41→08:08)
[2016-06-12 02:59] VITALS: BP 148/70
[2016-06-12] MEDS: IV NORMAL SALINE 1000ML BAG 1,000 ML IV SCH ×3 (04:00→23:56)
[2016-06-12] MEDS: PIPERACILLIN/TAZOBACTAM 3.375 GM in IV NORMAL SALINE 50ML 50 ML IV SCH ×4 (06:01→23:56)
[2016-06-12 06:18] LABS: BASO # 0.1 x10^3/uL (0.0-0.2); BASO % 1 % (0-3); EOS % 1 % (0-3); HEMATOCRIT 37.4 % (36.0-47.0); HEMOGLOBIN 12.4 g/dL (12.0-15.5); LYMPH % 13 % (24-48); MEAN CORPUSCULAR HEMOGLOBIN 31 pg (25-35); MEAN CORPUSCULAR HGB CONC 33 g/dL (31-37); MEAN CORPUSCULAR VOLUME 92 fL (79-100); MONO % 6 % (0-9); NEUT % 80 % (31-73); PLATELET COUNT 205 x10^3/uL (140-400); RED BLOOD COUNT 4.05 x10^6/uL (3.50-5.40); RED CELL DISTRIBUTION WIDTH 14.1 % (11.5-14.5); WHITE BLOOD COUNT 15.4 x10^3/uL (4.0-11.0)
[2016-06-12 06:28] LABS: INR 1.2 (0.8-1.1); PROTHROMBIN TIME PATIENT 14.2 SEC (11.7-14.0)
[2016-06-12 06:37] LABS: CREATININE 0.9 mg/dL (0.6-1.0); GFR 59.9; POTASSIUM 4.7 mmol/L (3.5-5.1)
[2016-06-12 07:00] VITALS: BP 143/79
[2016-06-12] MEDS: AA 4.25%/CALCIUM/LYTES/D5W 1,000 ML IV PRN ×2 (07:08→23:22)
[2016-06-12] MEDS: GLIPIZIDE ER 5 MG TAB.ER.24 PO SCH (08:00)
[2016-06-12] MEDS: ASPIRIN 81 MG TAB.CHEW PO SCH (08:00)
--- NOTE | 2016-06-12 08:10 | RAD ---
EXAM: Chest one view. HISTORY: Pneumothorax. COMPARISON: 06/11/2016. FINDINGS: A frontal view of the chest is obtained. A right arm PICC line has its tip in the superior vena cava. There is some rotation to the left. Multiple right-sided rib fractures are again noted. The right-sided pneumothorax is no longer clearly appreciable at the pleural line, but an anterior component is still suspected based on the appearance of the mediastinum. There is no clear pleural effusion. The right hemidiaphragm is mildly elevated. There are atherosclerotic calcifications of the aorta. The heart is not enlarged. IMPRESSION: 1. The right pneumothorax appears smaller, but an anterior component is still suspected. 2. Multiple right rib fractures.
[2016-06-12] MEDS: INSULIN ASPART 300 UNITS/3 ML INSULN.PEN SQ SCH ×3 (08:14→17:35)
[2016-06-12] MEDS: DOCUSATE SODIUM 100 MG CAPSULE PO SCH (08:43)
[2016-06-12] MEDS: DULOXETINE HCL 30 MG CAPSULE.DR. PO SCH (08:43)
[2016-06-12] MEDS: OMEGA-3 FATTY ACIDS/FISH OIL 1,000 MG CAPSULE. PO SCH (08:43)
[2016-06-12] MEDS: MULTIVITAMIN with MINERAL TABLET. PO SCH (08:44)
[2016-06-12] MEDS: CALCIUM CARB/VIT D3 500/200 TABLET PO SCH (08:44)
[2016-06-12] MEDS: LISINOPRIL 5 MG TABLET. PO SCH (08:44)
[2016-06-12] MEDS: LIDOCAINE (700MG/PATCH) PATCH. TD SCH (08:44)
[2016-06-12] MEDS: PANTOPRAZOLE IV PUSH 40 MG VIAL. IVP SCH (08:51)
[2016-06-12] MEDS: FLUTICASONE 50MCG/NASAL SPRAY 16GM BOTTLE. NS SCH (08:53)
--- NOTE | 2016-06-12 09:05 | PDOC ---
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 SKIN: No rash IV: ok Labs Lab Laboratory Tests Test 06/11/16 10:22 06/11/16 12:13 06/11/16 15:45 06/11/16 16:13 Glucose (Fingerstick) 199mg/dL (70-99) 208mg/dL (70-99) 178mg/dL (70-99) Prothrombin Time 14.6SEC (11.7-14.0) Prothromb Time International Ratio 1.2 (0.8-1.1) Test 06/11/16 21:09 06/12/16 05:45 Glucose (Fingerstick) 218mg/dL (70-99) White Blood Count 15.4x10^3/uL (4.0-11.0) Red Blood Count 4.05x10^6/uL (3.50-5.40) Hemoglobin 12.4g/dL (12.0-15.5) Hematocrit 37.4% (36.0-47.0) Mean Corpuscular Volume 92fL (79-100) Mean Corpuscular Hemoglobin 31pg (25-35) Mean Corpuscular Hemoglobin Concent 33g/dL (31-37) Red Cell Distribution Width 14.1% (11.5-14.5) Platelet Count 205x10^3/uL (140-400) Neutrophils (%) (Auto) 80% (31-73) Lymphocytes (%) (Auto) 13% (24-48) Monocytes (%) (Auto) 6% (0-9) Eosinophils (%) (Auto) 1% (0-3) Basophils (%) (Auto) 1% (0-3) Neutrophils # (Auto) 12.3x10^3uL (1.8-7.7) Lymphocytes # (Auto) 2.0x10^3/uL (1.0-4.8) Monocytes # (Auto) 0.9x10^3/uL (0.0-1.1) Eosinophils # (Auto) 0.2x10^3/uL (0.0-0.7) Basophils # (Auto) 0.1x10^3/uL (0.0-0.2) Prothrombin Time 14.2SEC (11.7-14.0) Prothromb Time International Ratio 1.2 (0.8-1.1) Sodium Level 140mmol/L (136-145) Potassium Level 4.7mmol/L (3.5-5.1) Chloride Level 105mmol/L (98-107) Carbon Dioxide Level 26mmol/L (21-32) Anion Gap 9 (6-14) Blood Urea Nitrogen 30mg/dL (7-20) Creatinine 0.9mg/dL (0.6-1.0) Estimated GFR (Cockcroft-Gault) 59.9 Glucose Level 205mg/dL (70-99) Calcium Level 9.0mg/dL (8.5-10.1) Objective Assessment ? sepsis Leukocytosis Acute encephalopathy Bloody diarrhea ANT Multiple rib fractures post mechanical fall DM Type II CAD h/o CVA Recent UTI on cipro Plan Plan of Care Zosyn and d/c flagyl Check stool c. diff neg BC x 2 Monitor WBC, Cr and Temp d/w daughter, LP today ALEXX LLOYD MD Jun 12, 2016 09:05
--- NOTE | 2016-06-12 09:17 | PDOC ---
PULMONARY PROGRESS NOTES Subjective more arousable no soa Vitals Vital Signs Date Time Temp Pulse Resp B/P Pulse Ox O2 Delivery O2 Flow Rate FiO2 06/12/16 07:00 97.3 70 16 143/79 93 Nasal Cannula 3.0 97.3 HEENT: Other Lungs: Clear Cardiovascular: S1, S2 Abdomen: Soft Extremities: No Edema Skin: Warm Labs Laboratory Tests Test 06/10/16 11:40 06/10/16 12:10 06/10/16 13:48 06/10/16 16:49 Glucose (Fingerstick) 296mg/dL (70-99) 269mg/dL (70-99) Lactic Acid Level 3.3mmol/L (0.4-2.0) Clostridium difficile Toxin (PCR) Negative (Negative) Test 06/10/16 20:40 06/11/16 04:50 06/11/16 06:02 06/11/16 07:31 Glucose (Fingerstick) 247mg/dL (70-99) 209mg/dL (70-99) White Blood Count 14.6x10^3/uL (4.0-11.0) Red Blood Count 3.92x10^6/uL (3.50-5.40) Hemoglobin 12.0g/dL (12.0-15.5) Hematocrit 37.0% (36.0-47.0) Mean Corpuscular Volume 94fL (79-100) Mean Corpuscular Hemoglobin 31pg (25-35) Mean Corpuscular Hemoglobin Concent 32g/dL (31-37) Red Cell Distribution Width 13.3% (11.5-14.5) Platelet Count 204x10^3/uL (140-400) Neutrophils (%) (Auto) 84% (31-73) Lymphocytes (%) (Auto) 10% (24-48) Monocytes (%) (Auto) 6% (0-9) Eosinophils (%) (Auto) 0% (0-3) Basophils (%) (Auto) 0% (0-3) Neutrophils # (Auto) 12.3x10^3uL (1.8-7.7) Lymphocytes # (Auto) 1.4x10^3/uL (1.0-4.8) Monocytes # (Auto) 0.8x10^3/uL (0.0-1.1) Eosinophils # (Auto) 0.0x10^3/uL (0.0-0.7) Basophils # (Auto) 0.1x10^3/uL (0.0-0.2) Sodium Level 128mmol/L (136-145) 141mmol/L (136-145) Potassium Level 7.3mmol/L (3.5-5.1) 4.9mmol/L (3.5-5.1) Chloride Level 101mmol/L (98-107) 105mmol/L (98-107) Carbon Dioxide Level 20mmol/L (21-32) 27mmol/L (21-32) Anion Gap 7 (6-14) 9 (6-14) Blood Urea Nitrogen 43mg/dL (7-20) 53mg/dL (7-20) Creatinine 1.1mg/dL (0.6-1.0) 1.4mg/dL (0.6-1.0) Estimated GFR (Cockcroft-Gault) 47.6 36.0 Glucose Level 620mg/dL (70-99) 217mg/dL (70-99) Calcium Level 8.3mg/dL (8.5-10.1) 9.8mg/dL (8.5-10.1) BUN/Creatinine Ratio 38 (6-20) Total Bilirubin 0.6mg/dL (0.2-1.0) Aspartate Amino Transf (AST/SGOT) 17U/L (15-37) Alanine Aminotransferase (ALT/SGPT) 21U/L (14-59) Alkaline Phosphatase 87U/L (46-116) Total Protein 6.7g/dL (6.4-8.2) Albumin 2.6g/dL (3.4-5.0) Albumin/Globulin Ratio 0.6 (1.0-1.7) Test 06/11/16 10:22 06/11/16 12:13 06/11/16 15:45 06/11/16 16:13 Glucose (Fingerstick) 199mg/dL (70-99) 208mg/dL (70-99) 178mg/dL (70-99) Prothrombin Time 14.6SEC (11.7-14.0) Prothromb Time International Ratio 1.2 (0.8-1.1) Test 06/11/16 21:09 06/12/16 05:45 Glucose (Fingerstick) 218mg/dL (70-99) White Blood Count 15.4x10^3/uL (4.0-11.0) Red Blood Count 4.05x10^6/uL (3.50-5.40) Hemoglobin 12.4g/dL (12.0-15.5) Hematocrit 37.4% (36.0-47.0) Mean Corpuscular Volume 92fL (79-100) Mean Corpuscular Hemoglobin 31pg (25-35) Mean Corpuscular Hemoglobin Concent 33g/dL (31-37) Red Cell Distribution Width 14.1% (11.5-14.5) Platelet Count 205x10^3/uL (140-400) Neutrophils (%) (Auto) 80% (31-73) Lymphocytes (%) (Auto) 13% (24-48) Monocytes (%) (Auto) 6% (0-9) Eosinophils (%) (Auto) 1% (0-3) Basophils (%) (Auto) 1% (0-3) Neutrophils # (Auto) 12.3x10^3uL (1.8-7.7) Lymphocytes # (Auto) 2.0x10^3/uL (1.0-4.8) Monocytes # (Auto) 0.9x10^3/uL (0.0-1.1) Eosinophils # (Auto) 0.2x10^3/uL (0.0-0.7) Basophils # (Auto) 0.1x10^3/uL (0.0-0.2) Prothrombin Time 14.2SEC (11.7-14.0) Prothromb Time International Ratio 1.2 (0.8-1.1) Sodium Level 140mmol/L (136-145) Potassium Level 4.7mmol/L (3.5-5.1) Chloride Level 105mmol/L (98-107) Carbon Dioxide Level 26mmol/L (21-32) Anion Gap 9 (6-14) Blood Urea Nitrogen 30mg/dL (7-20) Creatinine 0.9mg/dL (0.6-1.0) Estimated GFR (Cockcroft-Gault) 59.9 Glucose Level 205mg/dL (70-99) Calcium Level 9.0mg/dL (8.5-10.1) Laboratory Tests Test 06/11/16 10:22 06/11/16 12:13 06/11/16 15:45 06/11/16 16:13 Glucose (Fingerstick) 199mg/dL (70-99) 208mg/dL (70-99) 178mg/dL (70-99) Prothrombin Time 14.6SEC (11.7-14.0) Prothromb Time International Ratio 1.2 (0.8-1.1) Test 06/11/16 21:09 06/12/16 05:45 Glucose (Fingerstick) 218mg/dL (70-99) White Blood Count 15.4x10^3/uL (4.0-11.0) Red Blood Count 4.05x10^6/uL (3.50-5.40) Hemoglobin 12.4g/dL (12.0-15.5) Hematocrit 37.4% (36.0-47.0) Mean Corpuscular Volume 92fL (79-100) Mean Corpuscular Hemoglobin 31pg (25-35) Mean Corpuscular Hemoglobin Concent 33g/dL (31-37) Red Cell Distribution Width 14.1% (11.5-14.5) Platelet Count 205x10^3/uL (140-400) Neutrophils (%) (Auto) 80% (31-73) Lymphocytes (%) (Auto) 13% (24-48) Monocytes (%) (Auto) 6% (0-9) Eosinophils (%) (Auto) 1% (0-3) Basophils (%) (Auto) 1% (0-3) Neutrophils # (Auto) 12.3x10^3uL (1.8-7.7) Lymphocytes # (Auto) 2.0x10^3/uL (1.0-4.8) Monocytes # (Auto) 0.9x10^3/uL (0.0-1.1) Eosinophils # (Auto) 0.2x10^3/uL (0.0-0.7) Basophils # (Auto) 0.1x10^3/uL (0.0-0.2) Prothrombin Time 14.2SEC (11.7-14.0) Prothromb Time International Ratio 1.2 (0.8-1.1) Sodium Level 140mmol/L (136-145) Potassium Level 4.7mmol/L (3.5-5.1) Chloride Level 105mmol/L (98-107) Carbon Dioxide Level 26mmol/L (21-32) Anion Gap 9 (6-14) Blood Urea Nitrogen 30mg/dL (7-20) Creatinine 0.9mg/dL (0.6-1.0) Estimated GFR (Cockcroft-Gault) 59.9 Glucose Level 205mg/dL (70-99) Calcium Level 9.0mg/dL (8.5-10.1) Medications Active Scripts Medications Dose Route/Sig Days Date Category Ciprofloxacin 250 Mg/5 Ml Christina.mc.rec 250 Mg PO BID 02/22/16 Rx Children's Aspirin (Aspirin) 81 Mg Tab.chew 81 Mg PO DAILYWBKFT 30 01/04/16 Rx Glipizide Er (Glipizide) 5 Mg Tab.er.24 10 Mg PO DAILY 04/25/15 Rx Pravachol (Pravastatin Sodium) 80 Mg Tablet 80 Mg PO DAILY 05/12/14 Reported Multi-Vitamin Daily (Multivitamin) 1 Each Tablet 1 Each PO DAILY 05/12/14 Reported Lisinopril 5 Mg Tablet 5 Mg PO DAILY 05/12/14 Reported Flonase (Fluticasone Propionate) 16 Gm [place].susp 2 [place] NS DAILY 05/12/14 Reported Famotidine 40 Mg Tablet 40 Mg PO DAILY 05/12/14 Reported Cymbalta (Duloxetine Hcl) 60 Mg Capsule.dr 60 Mg PO DAILY 05/12/14 Reported Docusate Sodium 100 Mg Capsule 100 Mg PO DAILY 05/12/14 Reported Fish Oil Concentrate Softgel (Docosahexanoic Acid/Epa) 1 Each Capsule 1 Each PO DAILY 05/12/14 Reported Caltrate 600 + D Tablet (Calcium Carbonate/Vitamin D3) 1 Each Tablet 1 Each PO DAILY 05/12/14 Reported Impression . Traumatic small right PTX, continues to improve, no intervention needed s/p fall, multiple right rib fractures MS changes. suspect could be due to 1 mg IV ativan received 3/5 pm, w/u per neurology right chest 6th to 9th rib fractures. Plan . From pulmonary standpoint ,no intervention CXR improving 7 d/c benzo and narcotics. Discussed in detail with her daughter/ RN at bedside. will see CESAR HWANG MD Jun 12, 2016 09:17
--- NOTE | 2016-06-12 10:13 | PDOC ---
Subjective: Subjective: Says yes when asked about pain, points to RLQ. Objective: Objective: Per RN - more awake today, a tinge of red w/ stool this a.m., plans for LP. Vital Signs: Vital Signs Date Time Temp Pulse Resp B/P Pulse Ox O2 Delivery O2 Flow Rate FiO2 06/12/16 07:30 Room Air 06/12/16 07:00 97.3 70 16 143/79 93 3.0 97.3 Labs: Laboratory Tests Test 06/11/16 10:22 06/11/16 12:13 06/11/16 15:45 06/11/16 16:13 Glucose (Fingerstick) 199mg/dL 208mg/dL 178mg/dL Prothrombin Time 14.6SEC Prothromb Time International Ratio 1.2 Test 06/11/16 21:09 06/12/16 05:45 Glucose (Fingerstick) 218mg/dL White Blood Count 15.4x10^3/uL Red Blood Count 4.05x10^6/uL Hemoglobin 12.4g/dL Hematocrit 37.4% Mean Corpuscular Volume 92fL Mean Corpuscular Hemoglobin 31pg Mean Corpuscular Hemoglobin Concent 33g/dL Red Cell Distribution Width 14.1% Platelet Count 205x10^3/uL Neutrophils (%) (Auto) 80% Lymphocytes (%) (Auto) 13% Monocytes (%) (Auto) 6% Eosinophils (%) (Auto) 1% Basophils (%) (Auto) 1% Neutrophils # (Auto) 12.3x10^3uL Lymphocytes # (Auto) 2.0x10^3/uL Monocytes # (Auto) 0.9x10^3/uL Eosinophils # (Auto) 0.2x10^3/uL Basophils # (Auto) 0.1x10^3/uL Prothrombin Time 14.2SEC Prothromb Time International Ratio 1.2 Sodium Level 140mmol/L Potassium Level 4.7mmol/L Chloride Level 105mmol/L Carbon Dioxide Level 26mmol/L Anion Gap 9 Blood Urea Nitrogen 30mg/dL Creatinine 0.9mg/dL Estimated GFR (Cockcroft-Gault) 59.9 Glucose Level 205mg/dL Calcium Level 9.0mg/dL Imaging: CXR 06/12/16 IMPRESSION: 1. The right pneumothorax appears smaller, but an anterior component is still suspected. 2. Multiple right rib fractures. PE: GEN: NAD LUNGS: clear anteriorly HEART: RRR ABD: RLQ tenderness, BS+ NEURO/PSYCH: opens eyes briefly, responds some A/P: Hematochezia -tinge of red this a.m. w/ stool per RN -C Diff neg Pneumothorax, rib fractures -no pulm intervention recommended AMS - improving Leukocytosis, fever -- LP today. Other per Dr. Gregory. OVI LAKHANI Jun 12, 2016 10:13
--- NOTE | 2016-06-12 11:01 | RAD ---
EXAM: FLUOROSCOPICALLY GUIDED LUMBAR PUNCTURE. HISTORY: Psychosis, altered mental status. TECHNIQUE: The procedure along with its risks and benefits were discussed with the patient and written and verbal consent were obtained. A timeout procedure was performed. The L5-S1 level was visualized fluoroscopically. The overlying skin was sterilely prepped and infiltrated with 1% lidocaine for local anesthesia. Under fluoroscopic guidance, a 20-gauge spinal needle was advanced into the thecal sac. There was spontaneous return of clear cerebrospinal fluid. 12 mL CSF were collected and sent requested analysis. Instrumentation was withdrawn and a sterile dressing placed. There were no immediate complications. One fluoroscopic image was obtained. Fluoroscopy time 0.3 minutes. Postprocedural instructions were provided. IMPRESSION: 1. Successful fluoroscopically guided lumbar puncture.
[2016-06-12 11:35] VITALS: BP 148/69
[2016-06-12 12:06] LABS: CSF GLUCOSE 122 mg/dL (37-70); CSF PROTEIN 63.3 mg/dL (15.0-45.0)
[2016-06-12 12:11] LABS: CSF COLOR COLORLESS
[2016-06-12 12:12] LABS: CSF CLARITY CLEAR
[2016-06-12 15:00] VITALS: BP 163/53
--- NOTE | 2016-06-12 15:55 | PDOC ---
PROGRESS NOTES Chief Complaint Chief Complaint acute metabolic encephalopathy 1. Right rib fxs number 6-9 2. Altered Mental Status 3. Leukocytosis 4. H/o GERD 5. 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 Scoliosis 8. HTN 9. Diabetes History of Present Illness History of Present Illness more alert cont current Vitals Vitals Vital Signs Date Time Temp Pulse Resp B/P Pulse Ox O2 Delivery O2 Flow Rate FiO2 06/12/16 11:35 98.0 63 20 148/69 97 Nasal Cannula 2.0 98.0 Physical Exam General: Cooperative, No acute distress, Other (lethergic, open eyes to pain stimuli) Heart: Regular rate, Normal S1, Normal S2, No murmurs Lungs: Clear Abdomen: Soft, No masses, Other (Tender, w. some guarding) Extremities: No cyanosis, No edema Skin: No breakdown, No significant lesion Labs LABS Laboratory Tests Test 06/11/16 16:13 06/11/16 21:09 06/12/16 05:45 Glucose (Fingerstick) 178mg/dL (70-99) 218mg/dL (70-99) White Blood Count 15.4x10^3/uL (4.0-11.0) Red Blood Count 4.05x10^6/uL (3.50-5.40) Hemoglobin 12.4g/dL (12.0-15.5) Hematocrit 37.4% (36.0-47.0) Mean Corpuscular Volume 92fL (79-100) Mean Corpuscular Hemoglobin 31pg (25-35) Mean Corpuscular Hemoglobin Concent 33g/dL (31-37) Red Cell Distribution Width 14.1% (11.5-14.5) Platelet Count 205x10^3/uL (140-400) Neutrophils (%) (Auto) 80% (31-73) Lymphocytes (%) (Auto) 13% (24-48) Monocytes (%) (Auto) 6% (0-9) Eosinophils (%) (Auto) 1% (0-3) Basophils (%) (Auto) 1% (0-3) Neutrophils # (Auto) 12.3x10^3uL (1.8-7.7) Lymphocytes # (Auto) 2.0x10^3/uL (1.0-4.8) Monocytes # (Auto) 0.9x10^3/uL (0.0-1.1) Eosinophils # (Auto) 0.2x10^3/uL (0.0-0.7) Basophils # (Auto) 0.1x10^3/uL (0.0-0.2) Prothrombin Time 14.2SEC (11.7-14.0) Prothromb Time International Ratio 1.2 (0.8-1.1) Sodium Level 140mmol/L (136-145) Potassium Level 4.7mmol/L (3.5-5.1) Chloride Level 105mmol/L (98-107) Carbon Dioxide Level 26mmol/L (21-32) Anion Gap 9 (6-14) Blood Urea Nitrogen 30mg/dL (7-20) Creatinine 0.9mg/dL (0.6-1.0) Estimated GFR (Cockcroft-Gault) 59.9 Glucose Level 205mg/dL (70-99) Calcium Level 9.0mg/dL (8.5-10.1) Review of Systems Review of Systems no n.v.d Assessment and Plan Assessmemt and Plan Problems Medical Problems: (1) Fall Status: Acute (2) Fall (on) (from) other stairs and steps, initial encounter Status: Acute (3) Ribs, multiple fractures Status: Acute Problems: Comment Review of Relevant I have reviewed the following items quincy (where applicable) has been applied. Labs Laboratory Tests Test 06/10/16 16:49 06/10/16 20:40 06/11/16 04:50 06/11/16 06:02 Glucose (Fingerstick) 269mg/dL (70-99) 247mg/dL (70-99) White Blood Count 14.6x10^3/uL (4.0-11.0) Red Blood Count 3.92x10^6/uL (3.50-5.40) Hemoglobin 12.0g/dL (12.0-15.5) Hematocrit 37.0% (36.0-47.0) Mean Corpuscular Volume 94fL (79-100) Mean Corpuscular Hemoglobin 31pg (25-35) Mean Corpuscular Hemoglobin Concent 32g/dL (31-37) Red Cell Distribution Width 13.3% (11.5-14.5) Platelet Count 204x10^3/uL (140-400) Neutrophils (%) (Auto) 84% (31-73) Lymphocytes (%) (Auto) 10% (24-48) Monocytes (%) (Auto) 6% (0-9) Eosinophils (%) (Auto) 0% (0-3) Basophils (%) (Auto) 0% (0-3) Neutrophils # (Auto) 12.3x10^3uL (1.8-7.7) Lymphocytes # (Auto) 1.4x10^3/uL (1.0-4.8) Monocytes # (Auto) 0.8x10^3/uL (0.0-1.1) Eosinophils # (Auto) 0.0x10^3/uL (0.0-0.7) Basophils # (Auto) 0.1x10^3/uL (0.0-0.2) Sodium Level 128mmol/L (136-145) 141mmol/L (136-145) Potassium Level 7.3mmol/L (3.5-5.1) 4.9mmol/L (3.5-5.1) Chloride Level 101mmol/L (98-107) 105mmol/L (98-107) Carbon Dioxide Level 20mmol/L (21-32) 27mmol/L (21-32) Anion Gap 7 (6-14) 9 (6-14) Blood Urea Nitrogen 43mg/dL (7-20) 53mg/dL (7-20) Creatinine 1.1mg/dL (0.6-1.0) 1.4mg/dL (0.6-1.0) Estimated GFR (Cockcroft-Gault) 47.6 36.0 Glucose Level 620mg/dL (70-99) 217mg/dL (70-99) Calcium Level 8.3mg/dL (8.5-10.1) 9.8mg/dL (8.5-10.1) BUN/Creatinine Ratio 38 (6-20) Total Bilirubin 0.6mg/dL (0.2-1.0) Aspartate Amino Transf (AST/SGOT) 17U/L (15-37) Alanine Aminotransferase (ALT/SGPT) 21U/L (14-59) Alkaline Phosphatase 87U/L (46-116) Total Protein 6.7g/dL (6.4-8.2) Albumin 2.6g/dL (3.4-5.0) Albumin/Globulin Ratio 0.6 (1.0-1.7) Test 06/11/16 07:31 06/11/16 10:22 06/11/16 10:50 06/11/16 12:13 Glucose (Fingerstick) 209mg/dL (70-99) 199mg/dL (70-99) 208mg/dL (70-99) CSF Tube Number 4 CSF Volume 5.0 CSF Color Colorless CSF Clarity Clear CSF WBC 3 CSF RBC 26 CSF Glucose 122mg/dL (37-70) CSF Total Protein 63.3mg/dL (15.0-45.0) Test 06/11/16 15:45 06/11/16 16:13 06/11/16 21:09 06/12/16 05:45 Prothrombin Time 14.6SEC (11.7-14.0) 14.2SEC (11.7-14.0) Prothromb Time International Ratio 1.2 (0.8-1.1) 1.2 (0.8-1.1) Glucose (Fingerstick) 178mg/dL (70-99) 218mg/dL (70-99) White Blood Count 15.4x10^3/uL (4.0-11.0) Red Blood Count 4.05x10^6/uL (3.50-5.40) Hemoglobin 12.4g/dL (12.0-15.5) Hematocrit 37.4% (36.0-47.0) Mean Corpuscular Volume 92fL (79-100) Mean Corpuscular Hemoglobin 31pg (25-35) Mean Corpuscular Hemoglobin Concent 33g/dL (31-37) Red Cell Distribution Width 14.1% (11.5-14.5) Platelet Count 205x10^3/uL (140-400) Neutrophils (%) (Auto) 80% (31-73) Lymphocytes (%) (Auto) 13% (24-48) Monocytes (%) (Auto) 6% (0-9) Eosinophils (%) (Auto) 1% (0-3) Basophils (%) (Auto) 1% (0-3) Neutrophils # (Auto) 12.3x10^3uL (1.8-7.7) Lymphocytes # (Auto) 2.0x10^3/uL (1.0-4.8) Monocytes # (Auto) 0.9x10^3/uL (0.0-1.1) Eosinophils # (Auto) 0.2x10^3/uL (0.0-0.7) Basophils # (Auto) 0.1x10^3/uL (0.0-0.2) Sodium Level 140mmol/L (136-145) Potassium Level 4.7mmol/L (3.5-5.1) Chloride Level 105mmol/L (98-107) Carbon Dioxide Level 26mmol/L (21-32) Anion Gap 9 (6-14) Blood Urea Nitrogen 30mg/dL (7-20) Creatinine 0.9mg/dL (0.6-1.0) Estimated GFR (Cockcroft-Gault) 59.9 Glucose Level 205mg/dL (70-99) Calcium Level 9.0mg/dL (8.5-10.1) Laboratory Tests Test 06/11/16 16:13 06/11/16 21:09 06/12/16 05:45 Glucose (Fingerstick) 178mg/dL (70-99) 218mg/dL (70-99) White Blood Count 15.4x10^3/uL (4.0-11.0) Red Blood Count 4.05x10^6/uL (3.50-5.40) Hemoglobin 12.4g/dL (12.0-15.5) Hematocrit 37.4% (36.0-47.0) Mean Corpuscular Volume 92fL (79-100) Mean Corpuscular Hemoglobin 31pg (25-35) Mean Corpuscular Hemoglobin Concent 33g/dL (31-37) Red Cell Distribution Width 14.1% (11.5-14.5) Platelet Count 205x10^3/uL (140-400) Neutrophils (%) (Auto) 80% (31-73) Lymphocytes (%) (Auto) 13% (24-48) Monocytes (%) (Auto) 6% (0-9) Eosinophils (%) (Auto) 1% (0-3) Basophils (%) (Auto) 1% (0-3) Neutrophils # (Auto) 12.3x10^3uL (1.8-7.7) Lymphocytes # (Auto) 2.0x10^3/uL (1.0-4.8) Monocytes # (Auto) 0.9x10^3/uL (0.0-1.1) Eosinophils # (Auto) 0.2x10^3/uL (0.0-0.7) Basophils # (Auto) 0.1x10^3/uL (0.0-0.2) Prothrombin Time 14.2SEC (11.7-14.0) Prothromb Time International Ratio 1.2 (0.8-1.1) Sodium Level 140mmol/L (136-145) Potassium Level 4.7mmol/L (3.5-5.1) Chloride Level 105mmol/L (98-107) Carbon Dioxide Level 26mmol/L (21-32) Anion Gap 9 (6-14) Blood Urea Nitrogen 30mg/dL (7-20) Creatinine 0.9mg/dL (0.6-1.0) Estimated GFR (Cockcroft-Gault) 59.9 Glucose Level 205mg/dL (70-99) Calcium Level 9.0mg/dL (8.5-10.1) Microbiology 06/10/16 Blood Culture - Preliminary, Resulted NO GROWTH AFTER 2 DAYS 06/08/16 Urine Culture - Final, Complete 06/08/16 Urine Culture Result 1 (ALEJO) - Final, Complete Medications Current Medications Lidocaine (Lidoderm) 1 patch 1X ONCE TD Last administered on 06/08/16 09:12; Start 06/08/16 at 09:00; Stop 06/08/16 at 09:01; Status DC Acetaminophen (Tylenol) 1,000 mg 1X ONCE PO Last administered on 06/08/16 09: 12; Start 06/08/16 at 09:00; Stop 06/08/16 at 09:01; Status DC Oxycodone/ Acetaminophen (Percocet 5/325) 1 tab 1X ONCE PO Last administered on 06/08/16 10:00; Start 06/08/16 at 10:00; Stop 06/08/16 at 10:01; Status DC Ondansetron HCl (Zofran) 4 mg PRN Q6HRS PRN IV NAUSEA/VOMITING; Start 06/08/16 at 12:00; Stop 06/12/16 at 09:19; Status DC Al Hydrox/Mg Hydrox/Simethicone (Mylanta Plus Xs) 30 ml PRN Q3HRS PRN PO HEARTBURN / GAS; Start 06/08/16 at 12:00; Stop 06/12/16 at 09:19; Status DC Calcium Carbonate/ Glycine (Tums) 500 mg PRN Q3HRS PRN PO UPSET STOMACH; Start 06/08/16 at 12:00; Stop 06/12/16 at 09:19; Status DC Oxycodone HCl (Roxicodone) 5 mg PRN Q3HRS PRN PO BREAKTHROUGH PAIN; Start at 12:00; Stop 06/12/16 at 09:19; Status DC Morphine Sulfate 1 mg PRN Q2HR PRN IV PAIN; Start 06/08/16 at 12:00; Stop at 09:19; Status DC Oxycodone/ Acetaminophen (Percocet 5/325) 1 tab PRN Q4HRS PRN PO MILD PAIN, 1ST CHOICE Last administered on 06/09/16 15:03; Start 06/08/16 at 12:00; Stop 06/12/16 at 09:19; Status DC Docusate Sodium (Colace) 100 mg BID PO ; Start 06/08/16 at 21:00; Status Cancel Magnesium Hydroxide (Milk Of Magnesia) 2,400 mg PRN Q12HR PRN PO CONSTIPATION; Start 06/08/16 at 12:00; Stop 06/12/16 at 09:19; Status DC Lactulose 20 gm PRN Q12HR PRN PO CONSTIPATION; Start 06/08/16 at 12:00; Stop 06/12/16 at 09:19; Status DC Bisacodyl (Dulcolax Supp) 10 mg PRN DAILY PRN PA CONSTIPATION; Start 06/08/16 at 12:00; Stop 06/12/16 at 09:19; Status DC Enoxaparin Sodium (Lovenox 40mg Syringe) 40 mg DAILY16 SQ Last administered on 06/09/16 15:03; Start 06/08/16 at 16:00; Stop 06/10/16 at 12:52; Status DC Lidocaine (Lidoderm) 1 patch DAILY TD Last administered on 06/09/16 07:41; Start 06/08/16 at 13:00 Aspirin (Children'S Aspirin) 81 mg DAILYWBKFT PO Last administered on 06/09/16 07:41; Start 06/08/16 at 13:00 Docusate Sodium (Colace) 100 mg DAILY PO Last administered on 06/09/16 09:00; Start 06/09/16 at 09:00 Fluticasone Propionate (Flonase) 2 spray DAILY NS Last administered on 08:53; Start 06/08/16 at 13:00 Glipizide (Glucotrol Er) 10 mg DAILY08 PO Last administered on 06/09/16 07:38; Start 06/08/16 at 13:00 Lisinopril (Prinivil) 5 mg DAILY PO Last administered on 06/09/16 07:39; Start 06/08/16 at 13:00 Calcium/Vitamin D (Oscal D 500mg/ 200uts) 1 tab DAILY PO Last administered on 07:39; Start 06/08/16 at 13:00 Fish Oil (Fish Oil) 1,000 mg DAILY PO Last administered on 06/09/16 07:38; Start 06/08/16 at 13:00 Duloxetine HCl (Cymbalta) 60 mg DAILY PO Last administered on 06/09/16 07:40; Start 06/08/16 at 13:00 Famotidine (Pepcid) 40 mg DAILY PO Last administered on 06/09/16 07:40; Start 06/08/16 at 13:00; Stop 06/10/16 at 11:55; Status DC Multivitamins/ Calcium (Thera M Plus) 1 tab DAILY PO Last administered on 07:39; Start 06/08/16 at 13:00 Atorvastatin Calcium (Lipitor) 20 mg QHS PO Last administered on 06/08/16 20:56 ; Start 06/08/16 at 21:00 Insulin Aspart (Novolog) 0-9 UNITS TIDWMEALS SQ Last administered on 06/12/16 08:14; Start 06/08/16 at 12:30 Dextrose 12.5 gm PRN Q15MIN PRN IV SEE COMMENTS; Start 06/08/16 at 12:15 Ondansetron HCl 4 mg 4 mg PRN Q8HRS PRN IV NAUSEA/VOMITING; Start 06/08/16 at 12 :45; Stop 06/09/16 at 12:44; Status DC Piperacillin Sod/ Tazobactam Sod/ Sodium Chloride (Zosyn/Iv Sodium Chloride 0.9 % 50ml) 50 ml @ 100 mls/hr Q6HRS IV Last administered on 06/12/16 13:01; Start 06/10/16 at 12:00 Pantoprazole Sodium 40 mg 40 mg DAILYAC IVP Last administered on 06/12/16 08:51 ; Start 06/10/16 at 11:00 Amino Acids/ Electrolytes/ Dextrose 1,000 ml @ 75 mls/hr [id number] PRN IV . Last administered on 06/12/16 07:08; Start 06/10/16 at 11:00 Sodium Chloride (Iv Sodium Chloride 0.9% 1000ml Bag) 1,000 ml @ 75 mls/hr [id number] IV Last administered on 06/12/16 04:00; Start 06/10/16 at 11:00 Naloxone HCl (Narcan) 0.4 mg PRN Q2MIN PRN IV SEE COMMENTS; Start 06/10/16 at 11 :30 Naloxone HCl 0.4 mg 0.4 mg 1X ONCE IV Last administered on 06/10/16 12:07; Start 06/10/16 at 12:00; Stop 06/10/16 at 12:01; Status DC Daptomycin 500 mg/ Sodium Chloride 50 ml @ 100 mls/hr Q24H IV Last administered on 06/10/16 14:56; Start 06/10/16 at 14:00; Stop 06/10/16 at 18:00; Status DC Metronidazole (FLAGYL 500Mmg PREMIX) 100 ml @ 100 mls/hr Q8H IV Last administered on 06/12/16 08:08; Start 06/10/16 at 16:00; Stop 06/12/16 at 09:07; Status DC Lorazepam (Ativan) 1 mg PRN Q4HRS PRN IV ANXIETY / AGITATION Last administered on 06/10/16 17:28; Start 06/10/16 at 17:00; Stop 06/12/16 at 09:19; Status DC Flumazenil (Romazicon) 0.1 mg 1X ONCE IV Last administered on 06/11/16t 15:15; Start 06/11/16 at 14:30; Stop 06/11/16 at 14:33; Status DC Active Scripts Active Ciprofloxacin 250 Mg/5 Ml Christina.mc.rec 250 Mg PO BID Children's Aspirin (Aspirin) 81 Mg Tab.chew 81 Mg PO DAILYWBKFT 30 Days Glipizide Er (Glipizide) 5 Mg Tab.er.24 10 Mg PO DAILY Reported Pravachol (Pravastatin Sodium) 80 Mg Tablet 80 Mg PO DAILY Multi-Vitamin Daily (Multivitamin) 1 Each Tablet 1 Each PO DAILY Lisinopril 5 Mg Tablet 5 Mg PO DAILY Flonase (Fluticasone Propionate) 16 Gm [place].susp 2 [place] NS DAILY Famotidine 40 Mg Tablet 40 Mg PO DAILY Cymbalta (Duloxetine Hcl) 60 Mg Capsule.dr 60 Mg PO DAILY Docusate Sodium 100 Mg Capsule 100 Mg PO DAILY Fish Oil Concentrate Softgel (Docosahexanoic Acid/Epa) 1 Each Capsule 1 Each PO DAILY Caltrate 600 + D Tablet (Calcium Carbonate/Vitamin D3) 1 Each Tablet 1 Each PO DAILY Vitals/I & O Vital Sign - Last 24 Hours 06/11/16 06/11/16 06/11/16 06/12/16 19:20 20:00 23:15 02:59 Temp 98.1 100.5 98.4 98.1 100.5 98.4 Pulse 72 69 66 Resp 18 18 18 B/P 130/51 154/70 148/70 Pulse Ox 91 91 92 O2 Delivery Room Air Room Air Room Air Room Air 06/12/16 06/12/16 06/12/16 07:00 07:30 11:35 Temp 97.3 98.0 97.3 98.0 Pulse 70 63 Resp 16 20 B/P 143/79 148/69 Pulse Ox 93 97 O2 Delivery Nasal Cannula Room Air Nasal Cannula O2 Flow Rate 3.0 2.0 Intake and Output 06/11/16 06/11/16 06/12/16 15:00 23:00 07:00 Intake Total 1475 ml 2325 ml Balance 1475 ml 2325 ml TAI CELESTE MD Jun 12, 2016 15:55
--- NOTE | 2016-06-12 15:59 | PDOC ---
PROGRESS NOTES Assessment Assessment Metabolic encephalopathy. Lethargy. Falls, right chest 6th to 9th rib fractures. Leukocytosis. Renal failure. Hyperkalemia. Hyperglycemia. UTI CAD DM HTN HLD Obesity No evidence of acute CVA this time. RECOMMENDATIONS/PLAN: Treat medical and surgical problems. Ovoid Narcotics as possible. Add HSV by PCP in CSF exam if not done. Discussed in detail with her family at bedside before.. CSF on 06/11: WBC 3, RBC 26, Glucose 122, protein 63.3. Brain MRI w/o contrast performed showed no evidence of CVA this time. Contrast not given due to renal failure. HISTORY OF THE PRESENT ILLNESS: 81-y-old female patient with above medical diseases had a mechanical fall on her right side of chest. She was brought to the ER of [facility] and was found to have right 6th to 9th rib fractures. She has been lethargic, decreased response, difficult talking, so Neurology was called for consultation. Patient was not able to provide history during neurology consult due to her mental statu changes. PAST MEDICAL HISTORY: Please see above. PAST SURGERY HISTORY: Cardiac stent placement. Left mastectomy Hysterectomy ALLERGY: Reviewed. MEDICATIONS: Refer to [facility] FAMILY HISTORY: Non contributory. SOCIAL HISTORY: Lives at home. Denies smoking, drinking, and illicit drug use. REVIEW OF SYSTEMS: Constitutional: No malnutrition, weight loss, cachexia. Head: No traumatic brain or head injury. Skin: No edema, or rash. Ear: No infection, tinnitus. Eyes: No vision loss or color blindness. Nose: No bleeding or purulent discharges. Hearing: Mild hearing decrease. Neck: No injury. Breast: Left mastectomy. Cardiac: CAD, stent placement, HTN, HLD. Pulmonary: No COPD. GI: No GI ulcer, GI bleeding. Urinary/genital: UTI. Endocrinologic: Diabetes Mellitus, obesity. Skeletomuscular: No muscular atrophy, deformity. Neurological: see HP. Psychiatric: Denies drug use/abuse. Otherwise, not [id number] review of systems. PHYSICAL EXAMINATION: General appearance is in acute distress. HEENT: Normocephalic and nontraumatic. Eyes, nose, ears, and throat are unremarkable. Neck is supple. No lymphadenopathy. No crepitus. Cardiovascular: S1, S2, regular rate and rhythm. Pulmonary: Clear to auscultation bilaterally. Abdomen: Bowel sounds are positive. Extremities: No rash, lesions, or edema. No restriction of range of motion NEUROLOGICAL EXAMINATION: [place] sleepiness but arousable. Not oriented to time, place and person. PERRL. EOMI. CN: no acute focal findings. Muscle tone: within normal. Muscle strength: 4+ DTR: 1-2 Plantar reflex: Neutral response bilaterally Gait: not examined in bed. Sensory exam: withdrew to stimuli. Not able to access cerebellar signs due to not follow commands. She was unable to perform F-T-N test. Objective Objective Vital Signs Date Time Temp Pulse Resp B/P Pulse Ox O2 Delivery O2 Flow Rate FiO2 06/12/16 11:35 98.0 63 20 148/69 97 Nasal Cannula 2.0 98.0 Intake and Output 06/12/16 07:00 Intake Total 3800 ml Balance 3800 ml Intake Oral 0 ml IV Total 2900 ml Other 900 ml # Voids 4 Vitals Signs Vitals VS - Last 72 Hours, by Label Date Time Temp Pulse Resp B/P Pulse Ox O2 Delivery O2 Flow Rate FiO2 06/12/16 11:35 98.0 63 20 148/69 97 Nasal Cannula 2.0 98.0 06/12/16 07:30 Room Air 06/12/16 07:00 97.3 70 16 143/79 93 Nasal Cannula 3.0 97.3 06/12/16 02:59 98.4 66 18 148/70 92 Room Air 98.4 06/11/16 23:15 100.5 69 18 154/70 91 Room Air 100.5 06/11/16 20:00 Room Air 06/11/16 19:20 98.1 72 18 130/51 91 Room Air 98.1 06/11/16 15:00 98.2 73 20 148/41 93 Room Air 98.2 06/11/16 11:00 98.1 72 16 139/63 90 Room Air 98.1 06/11/16 07:30 Room Air 06/11/16 07:00 98.8 82 18 117/76 92 Room Air 98.8 Laboratory Laboratory Laboratory Tests Test 06/11/16 16:13 06/11/16 21:09 06/12/16 05:45 Glucose (Fingerstick) 178mg/dL (70-99) 218mg/dL (70-99) White Blood Count 15.4x10^3/uL (4.0-11.0) Red Blood Count 4.05x10^6/uL (3.50-5.40) Hemoglobin 12.4g/dL (12.0-15.5) Hematocrit 37.4% (36.0-47.0) Mean Corpuscular Volume 92fL (79-100) Mean Corpuscular Hemoglobin 31pg (25-35) Mean Corpuscular Hemoglobin Concent 33g/dL (31-37) Red Cell Distribution Width 14.1% (11.5-14.5) Platelet Count 205x10^3/uL (140-400) Neutrophils (%) (Auto) 80% (31-73) Lymphocytes (%) (Auto) 13% (24-48) Monocytes (%) (Auto) 6% (0-9) Eosinophils (%) (Auto) 1% (0-3) Basophils (%) (Auto) 1% (0-3) Neutrophils # (Auto) 12.3x10^3uL (1.8-7.7) Lymphocytes # (Auto) 2.0x10^3/uL (1.0-4.8) Monocytes # (Auto) 0.9x10^3/uL (0.0-1.1) Eosinophils # (Auto) 0.2x10^3/uL (0.0-0.7) Basophils # (Auto) 0.1x10^3/uL (0.0-0.2) Prothrombin Time 14.2SEC (11.7-14.0) Prothromb Time International Ratio 1.2 (0.8-1.1) Sodium Level 140mmol/L (136-145) Potassium Level 4.7mmol/L (3.5-5.1) Chloride Level 105mmol/L (98-107) Carbon Dioxide Level 26mmol/L (21-32) Anion Gap 9 (6-14) Blood Urea Nitrogen 30mg/dL (7-20) Creatinine 0.9mg/dL (0.6-1.0) Estimated GFR (Cockcroft-Gault) 59.9 Glucose Level 205mg/dL (70-99) Calcium Level 9.0mg/dL (8.5-10.1) Microbiology 06/10/16 Blood Culture - Preliminary, Resulted NO GROWTH AFTER 2 DAYS 06/08/16 Urine Culture - Final, Complete 06/08/16 Urine Culture Result 1 (ALEJO) - Final, Complete Comment Review of Relevant I have reviewed the following items quincy (where applicable) has been applied. SOLIS WOLF MD Jun 12, 2016 15:59
[2016-06-12 19:20] VITALS: BP 163/65
[2016-06-12] MEDS: ATORVASTATIN CALCIUM 20 MG TABLET PO SCH (21:00)
[2016-06-12 23:41] VITALS: BP 144/56
[2016-06-13 03:18] VITALS: BP 169/64
[2016-06-13] MEDS: PIPERACILLIN/TAZOBACTAM 3.375 GM in IV NORMAL SALINE 50ML 50 ML IV SCH ×3 (06:07→17:38)
[2016-06-13 06:53] LABS: BASO # 0.1 x10^3/uL (0.0-0.2); BASO % 1 % (0-3); EOS % 3 % (0-3); HEMATOCRIT 37.1 % (36.0-47.0); LYMPH # 1.9 x10^3/uL (1.0-4.8); LYMPH % 14 % (24-48); MEAN CORPUSCULAR HEMOGLOBIN 30 pg (25-35); MEAN CORPUSCULAR HGB CONC 33 g/dL (31-37); MEAN CORPUSCULAR VOLUME 93 fL (79-100); MONO % 8 % (0-9); NEUT % 75 % (31-73); PLATELET COUNT 207 x10^3/uL (140-400); RED BLOOD COUNT 3.98 x10^6/uL (3.50-5.40); RED CELL DISTRIBUTION WIDTH 13.3 % (11.5-14.5); WHITE BLOOD COUNT 13.5 x10^3/uL (4.0-11.0)
[2016-06-13 07:00] VITALS: BP 141/49
[2016-06-13 07:03] LABS: CALCIUM 8.9 mg/dL (8.5-10.1); CREATININE 0.7 mg/dL (0.6-1.0); GFR 80.1; POTASSIUM 4.8 mmol/L (3.5-5.1)
[2016-06-13] MEDS: LIDOCAINE (700MG/PATCH) PATCH. TD SCH (07:13)
[2016-06-13] MEDS: INSULIN ASPART 300 UNITS/3 ML INSULN.PEN SQ SCH ×4 (08:00→21:33)
[2016-06-13] MEDS: GLIPIZIDE ER 5 MG TAB.ER.24 PO SCH (08:00)
[2016-06-13] MEDS: ASPIRIN 81 MG TAB.CHEW PO SCH (08:00)
[2016-06-13] MEDS: FLUTICASONE 50MCG/NASAL SPRAY 16GM BOTTLE. NS SCH (08:20)
[2016-06-13] MEDS: PANTOPRAZOLE IV PUSH 40 MG VIAL. IVP SCH (08:20)
--- NOTE | 2016-06-13 08:31 | PDOC ---
Infectious Disease Note Subjective Subjective little more responsive ROS ROS no n/v/d/pain still lethargic Vital Sign Vital Signs Vital Signs Date Time Temp Pulse Resp B/P Pulse Ox O2 Delivery O2 Flow Rate FiO2 06/13/16 07:00 97.8 61 20 141/49 99 Room Air 2.0 97.8 Physical Exam PHYSICAL EXAM GENERAL: NAD, lethargic HEENT: PERRL, OC/OP NECK: Supple, no JVD, no LN LUNGS: Clear HEART: S1S2, no gallop, no murmur ABD: Soft, NT, no organomegaly, no rebound EXT: No edema, no cyanosis [employer]: arousable, opens eyes, answers some questions but then goes back to sleep SKIN: No rash IV: ok Labs Lab Laboratory Tests Test 06/12/16 21:24 06/13/16 06:40 Glucose (Fingerstick) 182mg/dL (70-99) White Blood Count 13.5x10^3/uL (4.0-11.0) Red Blood Count 3.98x10^6/uL (3.50-5.40) Hemoglobin 12.0g/dL (12.0-15.5) Hematocrit 37.1% (36.0-47.0) Mean Corpuscular Volume 93fL (79-100) Mean Corpuscular Hemoglobin 30pg (25-35) Mean Corpuscular Hemoglobin Concent 33g/dL (31-37) Red Cell Distribution Width 13.3% (11.5-14.5) Platelet Count 207x10^3/uL (140-400) Neutrophils (%) (Auto) 75% (31-73) Lymphocytes (%) (Auto) 14% (24-48) Monocytes (%) (Auto) 8% (0-9) Eosinophils (%) (Auto) 3% (0-3) Basophils (%) (Auto) 1% (0-3) Neutrophils # (Auto) 10.2x10^3uL (1.8-7.7) Lymphocytes # (Auto) 1.9x10^3/uL (1.0-4.8) Monocytes # (Auto) 1.0x10^3/uL (0.0-1.1) Eosinophils # (Auto) 0.3x10^3/uL (0.0-0.7) Basophils # (Auto) 0.1x10^3/uL (0.0-0.2) Sodium Level 136mmol/L (136-145) Potassium Level 4.8mmol/L (3.5-5.1) Chloride Level 104mmol/L (98-107) Carbon Dioxide Level 26mmol/L (21-32) Anion Gap 6 (6-14) Blood Urea Nitrogen 26mg/dL (7-20) Creatinine 0.7mg/dL (0.6-1.0) Estimated GFR (Cockcroft-Gault) 80.1 Glucose Level 213mg/dL (70-99) Calcium Level 8.9mg/dL (8.5-10.1) Objective Assessment ? sepsis Leukocytosis Acute encephalopathy, etiology unclear Bloody diarrhea ANT Multiple rib fractures post mechanical fall DM Type II CAD h/o CVA Recent UTI on cipro Plan Plan of Care Zosyn Check stool c. diff neg BC x 2 Monitor WBC, Cr and Temp d/w daughter, LP noted, likely traumatic tap may consider trial of iv acyclovir untill hsv pcr reported ALEXX LLOYD MD Jun 13, 2016 08:30
[2016-06-13] MEDS: DULOXETINE HCL 30 MG CAPSULE.DR. PO SCH (09:00)
[2016-06-13] MEDS: CALCIUM CARB/VIT D3 500/200 TABLET PO SCH (09:00)
[2016-06-13] MEDS: OMEGA-3 FATTY ACIDS/FISH OIL 1,000 MG CAPSULE. PO SCH (09:00)
[2016-06-13] MEDS: LISINOPRIL 5 MG TABLET. PO SCH (09:00)
[2016-06-13] MEDS: MULTIVITAMIN with MINERAL TABLET. PO SCH (09:00)
[2016-06-13] MEDS: DOCUSATE SODIUM 100 MG CAPSULE PO SCH (09:00)
--- NOTE | 2016-06-13 09:19 | RAD ---
EXAM: Chest one view. HISTORY: Pneumothorax. COMPARISON: 06/12/2016. FINDINGS: A frontal view of the chest is obtained. A right arm PICC line has its tip in the superior vena cava. Multiple right rib fractures are again noted. A small anterior pneumothorax is suspected along the midline. The right hemidiaphragm is mildly elevated with right basilar atelectasis. There is no clear pleural effusion. The heart is not enlarged. There are atherosclerotic calcifications of the aorta. IMPRESSION: 1. Suspect a small residual right anterior pneumothorax.
[2016-06-13] MEDS: ACYCLOVIR SODIUM 620 MG in IV DEXTROSE 5% 250 ML IV SCH ×3 (09:21→21:27)
--- NOTE | 2016-06-13 09:45 | PDOC ---
G I PROGRESS NOTE Subjective Grimaces with exam, otherwise does not communicate. Objective NO reports of any meaningful bleeding. Physical Exam Lungs with coarse sounds and fewer on right anteriorly. RRR Abdomen soft, unclearly tender. Bowel sounds heard. Review of Relevant I have reviewed the following items quincy (where applicable) has been applied. Labs Laboratory Tests Test 06/11/16 10:22 06/11/16 10:50 06/11/16 12:13 06/11/16 15:45 Glucose (Fingerstick) 199mg/dL (70-99) 208mg/dL (70-99) CSF Tube Number 4 CSF Volume 5.0 CSF Color Colorless CSF Clarity Clear CSF WBC 3 CSF RBC 26 CSF Glucose 122mg/dL (37-70) CSF Total Protein 63.3mg/dL (15.0-45.0) Prothrombin Time 14.6SEC (11.7-14.0) Prothromb Time International Ratio 1.2 (0.8-1.1) Test 06/11/16 16:13 06/11/16 20:15 06/11/16 21:09 06/12/16 05:45 Glucose (Fingerstick) 178mg/dL (70-99) 218mg/dL (70-99) Nasal Screen MRSA (PCR) Negative (Negative) White Blood Count 15.4x10^3/uL (4.0-11.0) Red Blood Count 4.05x10^6/uL (3.50-5.40) Hemoglobin 12.4g/dL (12.0-15.5) Hematocrit 37.4% (36.0-47.0) Mean Corpuscular Volume 92fL (79-100) Mean Corpuscular Hemoglobin 31pg (25-35) Mean Corpuscular Hemoglobin Concent 33g/dL (31-37) Red Cell Distribution Width 14.1% (11.5-14.5) Platelet Count 205x10^3/uL (140-400) Neutrophils (%) (Auto) 80% (31-73) Lymphocytes (%) (Auto) 13% (24-48) Monocytes (%) (Auto) 6% (0-9) Eosinophils (%) (Auto) 1% (0-3) Basophils (%) (Auto) 1% (0-3) Neutrophils # (Auto) 12.3x10^3uL (1.8-7.7) Lymphocytes # (Auto) 2.0x10^3/uL (1.0-4.8) Monocytes # (Auto) 0.9x10^3/uL (0.0-1.1) Eosinophils # (Auto) 0.2x10^3/uL (0.0-0.7) Basophils # (Auto) 0.1x10^3/uL (0.0-0.2) Prothrombin Time 14.2SEC (11.7-14.0) Prothromb Time International Ratio 1.2 (0.8-1.1) Sodium Level 140mmol/L (136-145) Potassium Level 4.7mmol/L (3.5-5.1) Chloride Level 105mmol/L (98-107) Carbon Dioxide Level 26mmol/L (21-32) Anion Gap 9 (6-14) Blood Urea Nitrogen 30mg/dL (7-20) Creatinine 0.9mg/dL (0.6-1.0) Estimated GFR (Cockcroft-Gault) 59.9 Glucose Level 205mg/dL (70-99) Calcium Level 9.0mg/dL (8.5-10.1) Test 06/12/16 21:24 06/13/16 06:40 Glucose (Fingerstick) 182mg/dL (70-99) White Blood Count 13.5x10^3/uL (4.0-11.0) Red Blood Count 3.98x10^6/uL (3.50-5.40) Hemoglobin 12.0g/dL (12.0-15.5) Hematocrit 37.1% (36.0-47.0) Mean Corpuscular Volume 93fL (79-100) Mean Corpuscular Hemoglobin 30pg (25-35) Mean Corpuscular Hemoglobin Concent 33g/dL (31-37) Red Cell Distribution Width 13.3% (11.5-14.5) Platelet Count 207x10^3/uL (140-400) Neutrophils (%) (Auto) 75% (31-73) Lymphocytes (%) (Auto) 14% (24-48) Monocytes (%) (Auto) 8% (0-9) Eosinophils (%) (Auto) 3% (0-3) Basophils (%) (Auto) 1% (0-3) Neutrophils # (Auto) 10.2x10^3uL (1.8-7.7) Lymphocytes # (Auto) 1.9x10^3/uL (1.0-4.8) Monocytes # (Auto) 1.0x10^3/uL (0.0-1.1) Eosinophils # (Auto) 0.3x10^3/uL (0.0-0.7) Basophils # (Auto) 0.1x10^3/uL (0.0-0.2) Sodium Level 136mmol/L (136-145) Potassium Level 4.8mmol/L (3.5-5.1) Chloride Level 104mmol/L (98-107) Carbon Dioxide Level 26mmol/L (21-32) Anion Gap 6 (6-14) Blood Urea Nitrogen 26mg/dL (7-20) Creatinine 0.7mg/dL (0.6-1.0) Estimated GFR (Cockcroft-Gault) 80.1 Glucose Level 213mg/dL (70-99) Calcium Level 8.9mg/dL (8.5-10.1) Laboratory Tests Test 06/12/16 21:24 06/13/16 06:40 Glucose (Fingerstick) 182mg/dL (70-99) White Blood Count 13.5x10^3/uL (4.0-11.0) Red Blood Count 3.98x10^6/uL (3.50-5.40) Hemoglobin 12.0g/dL (12.0-15.5) Hematocrit 37.1% (36.0-47.0) Mean Corpuscular Volume 93fL (79-100) Mean Corpuscular Hemoglobin 30pg (25-35) Mean Corpuscular Hemoglobin Concent 33g/dL (31-37) Red Cell Distribution Width 13.3% (11.5-14.5) Platelet Count 207x10^3/uL (140-400) Neutrophils (%) (Auto) 75% (31-73) Lymphocytes (%) (Auto) 14% (24-48) Monocytes (%) (Auto) 8% (0-9) Eosinophils (%) (Auto) 3% (0-3) Basophils (%) (Auto) 1% (0-3) Neutrophils # (Auto) 10.2x10^3uL (1.8-7.7) Lymphocytes # (Auto) 1.9x10^3/uL (1.0-4.8) Monocytes # (Auto) 1.0x10^3/uL (0.0-1.1) Eosinophils # (Auto) 0.3x10^3/uL (0.0-0.7) Basophils # (Auto) 0.1x10^3/uL (0.0-0.2) Sodium Level 136mmol/L (136-145) Potassium Level 4.8mmol/L (3.5-5.1) Chloride Level 104mmol/L (98-107) Carbon Dioxide Level 26mmol/L (21-32) Anion Gap 6 (6-14) Blood Urea Nitrogen 26mg/dL (7-20) Creatinine 0.7mg/dL (0.6-1.0) Estimated GFR (Cockcroft-Gault) 80.1 Glucose Level 213mg/dL (70-99) Calcium Level 8.9mg/dL (8.5-10.1) Microbiology 06/10/16 Blood Culture - Preliminary, Resulted NO GROWTH AFTER 2 DAYS 06/08/16 Urine Culture - Final, Complete 06/08/16 Urine Culture Result 1 (ALEJO) - Final, Complete Medications Current Medications Lidocaine (Lidoderm) 1 patch 1X ONCE TD Last administered on 06/08/16 09:12; Start 06/08/16 at 09:00; Stop 06/08/16 at 09:01; Status DC Acetaminophen (Tylenol) 1,000 mg 1X ONCE PO Last administered on 06/08/16 09: 12; Start 06/08/16 at 09:00; Stop 06/08/16 at 09:01; Status DC Oxycodone/ Acetaminophen (Percocet 5/325) 1 tab 1X ONCE PO Last administered on 06/08/16 10:00; Start 06/08/16 at 10:00; Stop 06/08/16 at 10:01; Status DC Ondansetron HCl (Zofran) 4 mg PRN Q6HRS PRN IV NAUSEA/VOMITING; Start 06/08/16 at 12:00; Stop 06/12/16 at 09:19; Status DC Al Hydrox/Mg Hydrox/Simethicone (Mylanta Plus Xs) 30 ml PRN Q3HRS PRN PO HEARTBURN / GAS; Start 06/08/16 at 12:00; Stop 06/12/16 at 09:19; Status DC Calcium Carbonate/ Glycine (Tums) 500 mg PRN Q3HRS PRN PO UPSET STOMACH; Start 06/08/16 at 12:00; Stop 06/12/16 at 09:19; Status DC Oxycodone HCl (Roxicodone) 5 mg PRN Q3HRS PRN PO BREAKTHROUGH PAIN; Start at 12:00; Stop 06/12/16 at 09:19; Status DC Morphine Sulfate 1 mg PRN Q2HR PRN IV PAIN; Start 06/08/16 at 12:00; Stop at 09:19; Status DC Oxycodone/ Acetaminophen (Percocet 5/325) 1 tab PRN Q4HRS PRN PO MILD PAIN, 1ST CHOICE Last administered on 06/09/16 15:03; Start 06/08/16 at 12:00; Stop 06/12/16 at 09:19; Status DC Docusate Sodium (Colace) 100 mg BID PO ; Start 06/08/16 at 21:00; Status Cancel Magnesium Hydroxide (Milk Of Magnesia) 2,400 mg PRN Q12HR PRN PO CONSTIPATION; Start 06/08/16 at 12:00; Stop 06/12/16 at 09:19; Status DC Lactulose 20 gm PRN Q12HR PRN PO CONSTIPATION; Start 06/08/16 at 12:00; Stop 06/12/16 at 09:19; Status DC Bisacodyl (Dulcolax Supp) 10 mg PRN DAILY PRN [place] CONSTIPATION; Start 06/08/16 at 12:00; Stop 06/12/16 at 09:19; Status DC Enoxaparin Sodium (Lovenox 40mg Syringe) 40 mg DAILY16 SQ Last administered on 06/09/16 15:03; Start 06/08/16 at 16:00; Stop 06/10/16 at 12:52; Status DC Lidocaine (Lidoderm) 1 patch DAILY TD Last administered on 06/09/16 07:41; Start 06/08/16 at 13:00 Aspirin (Children'S Aspirin) 81 mg DAILYWBKFT PO Last administered on 06/09/16 07:41; Start 06/08/16 at 13:00 Docusate Sodium (Colace) 100 mg DAILY PO Last administered on 06/09/16 09:00; Start 06/09/16 at 09:00 Fluticasone Propionate (Flonase) 2 spray DAILY NS Last administered on 08:20; Start 06/08/16 at 13:00 Glipizide (Glucotrol Er) 10 mg DAILY08 PO Last administered on 06/09/16 07:38; Start 06/08/16 at 13:00 Lisinopril (Prinivil) 5 mg DAILY PO Last administered on 06/09/16 07:39; Start 06/08/16 at 13:00 Calcium/Vitamin D (Oscal D 500mg/ 200uts) 1 tab DAILY PO Last administered on 07:39; Start 06/08/16 at 13:00 Fish Oil (Fish Oil) 1,000 mg DAILY PO Last administered on 06/09/16 07:38; Start 06/08/16 at 13:00 Duloxetine HCl (Cymbalta) 60 mg DAILY PO Last administered on 06/09/16 07:40; Start 06/08/16 at 13:00 Famotidine (Pepcid) 40 mg DAILY PO Last administered on 06/09/16 07:40; Start 06/08/16 at 13:00; Stop 06/10/16 at 11:55; Status DC Multivitamins/ Calcium (Thera M Plus) 1 tab DAILY PO Last administered on 07:39; Start 06/08/16 at 13:00 Atorvastatin Calcium (Lipitor) 20 mg QHS PO Last administered on 06/08/16 20:56 ; Start 06/08/16 at 21:00 Insulin Aspart (Novolog) 0-9 UNITS TIDWMEALS SQ Last administered on 06/12/16 17:35; Start 06/08/16 at 12:30 Dextrose 12.5 gm PRN Q15MIN PRN IV SEE COMMENTS; Start 06/08/16 at 12:15 Ondansetron HCl 4 mg 4 mg PRN Q8HRS PRN IV NAUSEA/VOMITING; Start 06/08/16 at 12 :45; Stop 06/09/16 at 12:44; Status DC Piperacillin Sod/ Tazobactam Sod/ Sodium Chloride (Zosyn/Iv Sodium Chloride 0.9 % 50ml) 50 ml @ 100 mls/hr Q6HRS IV Last administered on 06/13/16 06:07; Start 06/10/16 at 12:00 Pantoprazole Sodium 40 mg 40 mg DAILYAC IVP Last administered on 06/13/16 08:20 ; Start 06/10/16 at 11:00 Amino Acids/ Electrolytes/ Dextrose 1,000 ml @ 75 mls/hr [id number] PRN IV . Last administered on 06/12/16 23:22; Start 06/10/16 at 11:00 Sodium Chloride (Iv Sodium Chloride 0.9% 1000ml Bag) 1,000 ml @ 50 mls/hr Q20H IV Last administered on 06/12/16 23:56; Start 06/10/16 at 11:00 Naloxone HCl (Narcan) 0.4 mg PRN Q2MIN PRN IV SEE COMMENTS; Start 06/10/16 at 11 :30 Naloxone HCl 0.4 mg 0.4 mg 1X ONCE IV Last administered on 06/10/16 12:07; Start 06/10/16 at 12:00; Stop 06/10/16 at 12:01; Status DC Daptomycin 500 mg/ Sodium Chloride 50 ml @ 100 mls/hr Q24H IV Last administered on 06/10/16 14:56; Start 06/10/16 at 14:00; Stop 06/10/16 at 18:00; Status DC Metronidazole (FLAGYL 500Mmg PREMIX) 100 ml @ 100 mls/hr Q8H IV Last administered on 06/12/16 08:08; Start 06/10/16 at 16:00; Stop 06/12/16 at 09:07; Status DC Lorazepam (Ativan) 1 mg PRN Q4HRS PRN IV ANXIETY / AGITATION Last administered on 06/10/16 17:28; Start 06/10/16 at 17:00; Stop 06/12/16 at 09:19; Status DC Flumazenil 0.1 mg 0.1 mg 1X ONCE IV Last administered on 06/11/16 15:15; Start 06/11/16 at 14:30; Stop 06/11/16 at 14:33; Status DC Acyclovir Sodium/ Dextrose (Zovirax) 262.4 ml @ 262.4 mls/ hr Q8HRS IV Last administered on 06/13/16t 09:21; Start 06/13/16 at 09:00 Active Scripts Active Ciprofloxacin 250 Mg/5 Ml Christina.mc.rec 250 Mg PO BID Children's Aspirin (Aspirin) 81 Mg Tab.chew 81 Mg PO DAILYWBKFT 30 Days Glipizide Er (Glipizide) 5 Mg Tab.er.24 10 Mg PO DAILY Reported Pravachol (Pravastatin Sodium) 80 Mg Tablet 80 Mg PO DAILY Multi-Vitamin Daily (Multivitamin) 1 Each Tablet 1 Each PO DAILY Lisinopril 5 Mg Tablet 5 Mg PO DAILY Flonase (Fluticasone Propionate) 16 Gm [place].susp 2 [place] NS DAILY Famotidine 40 Mg Tablet 40 Mg PO DAILY Cymbalta (Duloxetine Hcl) 60 Mg Capsule.dr 60 Mg PO DAILY Docusate Sodium 100 Mg Capsule 100 Mg PO DAILY Fish Oil Concentrate Softgel (Docosahexanoic Acid/Epa) 1 Each Capsule 1 Each PO DAILY Caltrate 600 + D Tablet (Calcium Carbonate/Vitamin D3) 1 Each Tablet 1 Each PO DAILY Vitals/I & O Vital Sign - Last 24 Hours 06/12/16 06/12/16 06/12/16 06/12/16 11:35 15:00 19:20 20:00 Temp 98.0 97.4 98.4 98.0 97.4 98.4 Pulse 63 69 66 Resp 18 B/P 148/69 163/53 163/65 Pulse Ox 97 97 95 O2 Delivery Nasal Cannula Nasal Cannula Nasal Cannula Room Air O2 Flow Rate 2.0 2.0 2.0 06/12/16 06/13/16 06/13/16 23:41 03:18 07:00 Temp 98.1 98.2 97.8 98.1 98.2 97.8 Pulse 67 77 61 Resp 18 18 20 B/P 144/56 169/64 141/49 Pulse Ox 95 92 99 O2 Delivery Room Air Room Air Room Air O2 Flow Rate 2.0 2.0 2.0 Intake and Output 06/12/16 06/12/16 06/13/16 15:00 23:00 07:00 Intake Total 1525 ml 2500 ml Balance 1525 ml 2500 ml Problem List Problems Medical Problems: (1) Fall Status: Acute (2) Fall (on) (from) other stairs and steps, initial encounter Status: Acute (3) Ribs, multiple fractures Status: Acute Assessment Rectal bleeding; suspect from ischemic colitis. Persistent encephalopathy. Right rib fractures-->pneumothorax, stable. Plan of Care: Continue current Tx, Mgmt Plan of Care Note Observe for any bleeding/abdominal change. JOSÉ LEON MD Jun 13, 2016 09:45
[2016-06-13 13:45] LABS: POTASSIUM 7.3 mmol/L (3.5-5.1)
[2016-06-13] MEDS: AA 4.25%/CALCIUM/LYTES/D5W 1,000 ML IV PRN (14:15)
--- NOTE | 2016-06-13 14:25 | PDOC ---
PROGRESS NOTES Chief Complaint Chief Complaint acute metabolic encephalopathy 1. Right rib fxs number 6-9 2. Altered Mental Status 3. Leukocytosis 4. H/o GERD 5. 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 Scoliosis 8. HTN 9. Diabetes History of Present Illness History of Present Illness more alert \has poor recall from yesterday, recollection is poor more oriented today up to chair cont current Vitals Vitals Vital Signs Date Time Temp Pulse Resp B/P Pulse Ox O2 Delivery O2 Flow Rate FiO2 06/13/16 08:00 Nasal Cannula 2.0 06/13/16 07:00 97.8 61 20 141/49 99 97.8 Physical Exam General: Cooperative, No acute distress, Other (lethergic, open eyes to pain stimuli) Heart: Regular rate, Normal S1, Normal S2, No murmurs Lungs: Clear Abdomen: Soft, No masses, Other (Tender, w. some guarding) Extremities: No cyanosis, No edema Skin: No breakdown, No significant lesion Labs LABS Laboratory Tests Test 06/12/16 16:08 06/12/16 21:24 06/13/16 06:40 06/13/16 07:45 Glucose (Fingerstick) 213mg/dL (70-99) 182mg/dL (70-99) 199mg/dL (70-99) White Blood Count 13.5x10^3/uL (4.0-11.0) Red Blood Count 3.98x10^6/uL (3.50-5.40) Hemoglobin 12.0g/dL (12.0-15.5) Hematocrit 37.1% (36.0-47.0) Mean Corpuscular Volume 93fL (79-100) Mean Corpuscular Hemoglobin 30pg (25-35) Mean Corpuscular Hemoglobin Concent 33g/dL (31-37) Red Cell Distribution Width 13.3% (11.5-14.5) Platelet Count 207x10^3/uL (140-400) Neutrophils (%) (Auto) 75% (31-73) Lymphocytes (%) (Auto) 14% (24-48) Monocytes (%) (Auto) 8% (0-9) Eosinophils (%) (Auto) 3% (0-3) Basophils (%) (Auto) 1% (0-3) Neutrophils # (Auto) 10.2x10^3uL (1.8-7.7) Lymphocytes # (Auto) 1.9x10^3/uL (1.0-4.8) Monocytes # (Auto) 1.0x10^3/uL (0.0-1.1) Eosinophils # (Auto) 0.3x10^3/uL (0.0-0.7) Basophils # (Auto) 0.1x10^3/uL (0.0-0.2) Sodium Level 136mmol/L (136-145) Potassium Level 4.8mmol/L (3.5-5.1) Chloride Level 104mmol/L (98-107) Carbon Dioxide Level 26mmol/L (21-32) Anion Gap 6 (6-14) Blood Urea Nitrogen 26mg/dL (7-20) Creatinine 0.7mg/dL (0.6-1.0) Estimated GFR (Cockcroft-Gault) 80.1 Glucose Level 213mg/dL (70-99) Calcium Level 8.9mg/dL (8.5-10.1) Test 06/13/16 11:54 Glucose (Fingerstick) 244mg/dL (70-99) Assessment and Plan Assessmemt and Plan Problems Medical Problems: (1) Fall Status: Acute (2) Fall (on) (from) other stairs and steps, initial encounter Status: Acute (3) Ribs, multiple fractures Status: Acute Problems: Comment Review of Relevant I have reviewed the following items quincy (where applicable) has been applied. Labs Laboratory Tests Test 06/11/16 15:45 06/11/16 16:13 06/11/16 20:15 06/11/16 21:09 Prothrombin Time 14.6SEC (11.7-14.0) Prothromb Time International Ratio 1.2 (0.8-1.1) Glucose (Fingerstick) 178mg/dL (70-99) 218mg/dL (70-99) Nasal Screen MRSA (PCR) Negative (Negative) Test 06/12/16 05:45 06/12/16 07:59 06/12/16 11:30 06/12/16 16:08 White Blood Count 15.4x10^3/uL (4.0-11.0) Red Blood Count 4.05x10^6/uL (3.50-5.40) Hemoglobin 12.4g/dL (12.0-15.5) Hematocrit 37.4% (36.0-47.0) Mean Corpuscular Volume 92fL (79-100) Mean Corpuscular Hemoglobin 31pg (25-35) Mean Corpuscular Hemoglobin Concent 33g/dL (31-37) Red Cell Distribution Width 14.1% (11.5-14.5) Platelet Count 205x10^3/uL (140-400) Neutrophils (%) (Auto) 80% (31-73) Lymphocytes (%) (Auto) 13% (24-48) Monocytes (%) (Auto) 6% (0-9) Eosinophils (%) (Auto) 1% (0-3) Basophils (%) (Auto) 1% (0-3) Neutrophils # (Auto) 12.3x10^3uL (1.8-7.7) Lymphocytes # (Auto) 2.0x10^3/uL (1.0-4.8) Monocytes # (Auto) 0.9x10^3/uL (0.0-1.1) Eosinophils # (Auto) 0.2x10^3/uL (0.0-0.7) Basophils # (Auto) 0.1x10^3/uL (0.0-0.2) Prothrombin Time 14.2SEC (11.7-14.0) Prothromb Time International Ratio 1.2 (0.8-1.1) Sodium Level 140mmol/L (136-145) Potassium Level 4.7mmol/L (3.5-5.1) Chloride Level 105mmol/L (98-107) Carbon Dioxide Level 26mmol/L (21-32) Anion Gap 9 (6-14) Blood Urea Nitrogen 30mg/dL (7-20) Creatinine 0.9mg/dL (0.6-1.0) Estimated GFR (Cockcroft-Gault) 59.9 Glucose Level 205mg/dL (70-99) Calcium Level 9.0mg/dL (8.5-10.1) Glucose (Fingerstick) 208mg/dL (70-99) 174mg/dL (70-99) 213mg/dL (70-99) Test 06/12/16 21:24 06/13/16 06:40 06/13/16 07:45 06/13/16 11:54 Glucose (Fingerstick) 182mg/dL (70-99) 199mg/dL (70-99) 244mg/dL (70-99) White Blood Count 13.5x10^3/uL (4.0-11.0) Red Blood Count 3.98x10^6/uL (3.50-5.40) Hemoglobin 12.0g/dL (12.0-15.5) Hematocrit 37.1% (36.0-47.0) Mean Corpuscular Volume 93fL (79-100) Mean Corpuscular Hemoglobin 30pg (25-35) Mean Corpuscular Hemoglobin Concent 33g/dL (31-37) Red Cell Distribution Width 13.3% (11.5-14.5) Platelet Count 207x10^3/uL (140-400) Neutrophils (%) (Auto) 75% (31-73) Lymphocytes (%) (Auto) 14% (24-48) Monocytes (%) (Auto) 8% (0-9) Eosinophils (%) (Auto) 3% (0-3) Basophils (%) (Auto) 1% (0-3) Neutrophils # (Auto) 10.2x10^3uL (1.8-7.7) Lymphocytes # (Auto) 1.9x10^3/uL (1.0-4.8) Monocytes # (Auto) 1.0x10^3/uL (0.0-1.1) Eosinophils # (Auto) 0.3x10^3/uL (0.0-0.7) Basophils # (Auto) 0.1x10^3/uL (0.0-0.2) Sodium Level 136mmol/L (136-145) Potassium Level 4.8mmol/L (3.5-5.1) Chloride Level 104mmol/L (98-107) Carbon Dioxide Level 26mmol/L (21-32) Anion Gap 6 (6-14) Blood Urea Nitrogen 26mg/dL (7-20) Creatinine 0.7mg/dL (0.6-1.0) Estimated GFR (Cockcroft-Gault) 80.1 Glucose Level 213mg/dL (70-99) Calcium Level 8.9mg/dL (8.5-10.1) Laboratory Tests Test 06/12/16 16:08 06/12/16 21:24 06/13/16 06:40 06/13/16 07:45 Glucose (Fingerstick) 213mg/dL (70-99) 182mg/dL (70-99) 199mg/dL (70-99) White Blood Count 13.5x10^3/uL (4.0-11.0) Red Blood Count 3.98x10^6/uL (3.50-5.40) Hemoglobin 12.0g/dL (12.0-15.5) Hematocrit 37.1% (36.0-47.0) Mean Corpuscular Volume 93fL (79-100) Mean Corpuscular Hemoglobin 30pg (25-35) Mean Corpuscular Hemoglobin Concent 33g/dL (31-37) Red Cell Distribution Width 13.3% (11.5-14.5) Platelet Count 207x10^3/uL (140-400) Neutrophils (%) (Auto) 75% (31-73) Lymphocytes (%) (Auto) 14% (24-48) Monocytes (%) (Auto) 8% (0-9) Eosinophils (%) (Auto) 3% (0-3) Basophils (%) (Auto) 1% (0-3) Neutrophils # (Auto) 10.2x10^3uL (1.8-7.7) Lymphocytes # (Auto) 1.9x10^3/uL (1.0-4.8) Monocytes # (Auto) 1.0x10^3/uL (0.0-1.1) Eosinophils # (Auto) 0.3x10^3/uL (0.0-0.7) Basophils # (Auto) 0.1x10^3/uL (0.0-0.2) Sodium Level 136mmol/L (136-145) Potassium Level 4.8mmol/L (3.5-5.1) Chloride Level 104mmol/L (98-107) Carbon Dioxide Level 26mmol/L (21-32) Anion Gap 6 (6-14) Blood Urea Nitrogen 26mg/dL (7-20) Creatinine 0.7mg/dL (0.6-1.0) Estimated GFR (Cockcroft-Gault) 80.1 Glucose Level 213mg/dL (70-99) Calcium Level 8.9mg/dL (8.5-10.1) Test 06/13/16 11:54 Glucose (Fingerstick) 244mg/dL (70-99) Microbiology 06/10/16 Blood Culture - Preliminary, Resulted NO GROWTH AFTER 3 DAYS 06/08/16 Urine Culture - Final, Complete 06/08/16 Urine Culture Result 1 (ALEJO) - Final, Complete Medications Current Medications Lidocaine (Lidoderm) 1 patch 1X ONCE TD Last administered on 06/08/16 09:12; Start 06/08/16 at 09:00; Stop 06/08/16 at 09:01; Status DC Acetaminophen (Tylenol) 1,000 mg 1X ONCE PO Last administered on 06/08/16 09: 12; Start 06/08/16 at 09:00; Stop 06/08/16 at 09:01; Status DC Oxycodone/ Acetaminophen (Percocet 5/325) 1 tab 1X ONCE PO Last administered on 06/08/16 10:00; Start 06/08/16 at 10:00; Stop 06/08/16 at 10:01; Status DC Ondansetron HCl (Zofran) 4 mg PRN Q6HRS PRN IV NAUSEA/VOMITING; Start 06/08/16 at 12:00; Stop 06/12/16 at 09:19; Status DC Al Hydrox/Mg Hydrox/Simethicone (Mylanta Plus Xs) 30 ml PRN Q3HRS PRN PO HEARTBURN / GAS; Start 06/08/16 at 12:00; Stop 06/12/16 at 09:19; Status DC Calcium Carbonate/ Glycine (Tums) 500 mg PRN Q3HRS PRN PO UPSET STOMACH; Start 06/08/16 at 12:00; Stop 06/12/16 at 09:19; Status DC Oxycodone HCl (Roxicodone) 5 mg PRN Q3HRS PRN PO BREAKTHROUGH PAIN; Start at 12:00; Stop 06/12/16 at 09:19; Status DC Morphine Sulfate 1 mg PRN Q2HR PRN IV PAIN; Start 06/08/16 at 12:00; Stop at 09:19; Status DC Oxycodone/ Acetaminophen (Percocet 5/325) 1 tab PRN Q4HRS PRN PO MILD PAIN, 1ST CHOICE Last administered on 06/09/16 15:03; Start 06/08/16 at 12:00; Stop 06/12/16 at 09:19; Status DC Docusate Sodium (Colace) 100 mg BID PO ; Start 06/08/16 at 21:00; Status Cancel Magnesium Hydroxide (Milk Of Magnesia) 2,400 mg PRN Q12HR PRN PO CONSTIPATION; Start 06/08/16 at 12:00; Stop 06/12/16 at 09:19; Status DC Lactulose 20 gm PRN Q12HR PRN PO CONSTIPATION; Start 06/08/16 at 12:00; Stop 06/12/16 at 09:19; Status DC Bisacodyl (Dulcolax Supp) 10 mg PRN DAILY PRN VA CONSTIPATION; Start 06/08/16 at 12:00; Stop 06/12/16 at 09:19; Status DC Enoxaparin Sodium (Lovenox 40mg Syringe) 40 mg DAILY16 SQ Last administered on 06/09/16 15:03; Start 06/08/16 at 16:00; Stop 06/10/16 at 12:52; Status DC Lidocaine (Lidoderm) 1 patch DAILY TD Last administered on 06/09/16 07:41; Start 06/08/16 at 13:00 Aspirin (Children'S Aspirin) 81 mg DAILYWBKFT PO Last administered on 06/09/16 07:41; Start 06/08/16 at 13:00 Docusate Sodium (Colace) 100 mg DAILY PO Last administered on 06/09/16 09:00; Start 06/09/16 at 09:00 Fluticasone Propionate (Flonase) 2 spray DAILY NS Last administered on 08:20; Start 06/08/16 at 13:00 Glipizide (Glucotrol Er) 10 mg DAILY08 PO Last administered on 06/09/16 07:38; Start 06/08/16 at 13:00 Lisinopril (Prinivil) 5 mg DAILY PO Last administered on 06/09/16 07:39; Start 06/08/16 at 13:00 Calcium/Vitamin D (Oscal D 500mg/ 200uts) 1 tab DAILY PO Last administered on 07:39; Start 06/08/16 at 13:00 Fish Oil (Fish Oil) 1,000 mg DAILY PO Last administered on 06/09/16 07:38; Start 06/08/16 at 13:00 Duloxetine HCl (Cymbalta) 60 mg DAILY PO Last administered on 06/09/16 07:40; Start 06/08/16 at 13:00 Famotidine (Pepcid) 40 mg DAILY PO Last administered on 06/09/16 07:40; Start 06/08/16 at 13:00; Stop 06/10/16 at 11:55; Status DC Multivitamins/ Calcium (Thera M Plus) 1 tab DAILY PO Last administered on 07:39; Start 06/08/16 at 13:00 Atorvastatin Calcium (Lipitor) 20 mg QHS PO Last administered on 06/08/16 20:56 ; Start 06/08/16 at 21:00 Insulin Aspart (Novolog) 0-9 UNITS TIDWMEALS SQ Last administered on 06/13/16 12:25; Start 06/08/16 at 12:30 Dextrose 12.5 gm PRN Q15MIN PRN IV SEE COMMENTS; Start 06/08/16 at 12:15 Ondansetron HCl 4 mg 4 mg PRN Q8HRS PRN IV NAUSEA/VOMITING; Start 06/08/16 at 12 :45; Stop 06/09/16 at 12:44; Status DC Piperacillin Sod/ Tazobactam Sod/ Sodium Chloride (Zosyn/Iv Sodium Chloride 0.9 % 50ml) 50 ml @ 100 mls/hr Q6HRS IV Last administered on 06/13/16 12:19; Start 06/10/16 at 12:00 Pantoprazole Sodium 40 mg 40 mg DAILYAC IVP Last administered on 06/13/16 08:20 ; Start 06/10/16 at 11:00 Amino Acids/ Electrolytes/ Dextrose 1,000 ml @ 75 mls/hr [id number] PRN IV . Last administered on 06/13/16 14:15; Start 06/10/16 at 11:00 Sodium Chloride (Iv Sodium Chloride 0.9% 1000ml Bag) 1,000 ml @ 50 mls/hr Q20H IV Last administered on 06/12/16 23:56; Start 06/10/16 at 11:00 Naloxone HCl (Narcan) 0.4 mg PRN Q2MIN PRN IV SEE COMMENTS; Start 06/10/16 at 11 :30 Naloxone HCl 0.4 mg 0.4 mg 1X ONCE IV Last administered on 06/10/16 12:07; Start 06/10/16 at 12:00; Stop 06/10/16 at 12:01; Status DC Daptomycin 500 mg/ Sodium Chloride 50 ml @ 100 mls/hr Q24H IV Last administered on 06/10/16 14:56; Start 06/10/16 at 14:00; Stop 06/10/16 at 18:00; Status DC Metronidazole (FLAGYL 500Mmg PREMIX) 100 ml @ 100 mls/hr Q8H IV Last administered on 06/12/16 08:08; Start 06/10/16 at 16:00; Stop 06/12/16 at 09:07; Status DC Lorazepam (Ativan) 1 mg PRN Q4HRS PRN IV ANXIETY / AGITATION Last administered on 06/10/16 17:28; Start 06/10/16 at 17:00; Stop 06/12/16 at 09:19; Status DC Flumazenil 0.1 mg 0.1 mg 1X ONCE IV Last administered on 06/11/16 15:15; Start 06/11/16 at 14:30; Stop 06/11/16 at 14:33; Status DC Acyclovir Sodium/ Dextrose (Zovirax) 262.4 ml @ 262.4 mls/ hr Q8HRS IV Last administered on 06/13/16 14:15; Start 06/13/16 at 09:00 Alteplase, Recombinant (Cathflo) 2 mg 1X ONCE INT CAT ; Start 06/13/16 at 15:00 ; Stop 06/13/16 at 15:01 Active Scripts Active Ciprofloxacin 250 Mg/5 Ml Christina.mc.rec 250 Mg PO BID Children's Aspirin (Aspirin) 81 Mg Tab.chew 81 Mg PO DAILYWBKFT 30 Days Glipizide Er (Glipizide) 5 Mg Tab.er.24 10 Mg PO DAILY Reported Pravachol (Pravastatin Sodium) 80 Mg Tablet 80 Mg PO DAILY Multi-Vitamin Daily (Multivitamin) 1 Each Tablet 1 Each PO DAILY Lisinopril 5 Mg Tablet 5 Mg PO DAILY Flonase (Fluticasone Propionate) 16 Gm Laurel.susp 2 Laurel NS DAILY Famotidine 40 Mg Tablet 40 Mg PO DAILY Cymbalta (Duloxetine Hcl) 60 Mg Capsule.dr 60 Mg PO DAILY Docusate Sodium 100 Mg Capsule 100 Mg PO DAILY Fish Oil Concentrate Softgel (Docosahexanoic Acid/Epa) 1 Each Capsule 1 Each PO DAILY Caltrate 600 + D Tablet (Calcium Carbonate/Vitamin D3) 1 Each Tablet 1 Each PO DAILY Vitals/I & O Vital Sign - Last 24 Hours 06/12/16 06/12/16 06/12/16 06/12/16 15:00 19:20 20:00 23:41 Temp 97.4 98.4 98.1 97.4 98.4 98.1 Pulse 69 66 67 Resp 18 18 18 B/P 163/53 163/65 144/56 Pulse Ox 97 95 95 O2 Delivery Nasal Cannula Nasal Cannula Room Air Room Air O2 Flow Rate 2.0 2.0 2.0 06/13/16 06/13/16 06/13/16 03:18 07:00 08:00 Temp 98.2 97.8 98.2 97.8 Pulse 77 61 Resp 18 20 B/P 169/64 141/49 Pulse Ox 92 99 O2 Delivery Room Air Room Air Nasal Cannula O2 Flow Rate 2.0 2.0 2.0 Intake and Output 06/12/16 06/12/16 06/13/16 15:00 23:00 07:00 Intake Total 1525 ml 2500 ml Balance 1525 ml 2500 ml TAI CELESTE MD Jun 13, 2016 14:25
[2016-06-13 15:00] VITALS: BP 176/86
[2016-06-13] MEDS ORDERED: ALTEPLASE 2 MG VIAL INT CAT ONE (15:00)
--- NOTE | 2016-06-13 17:56 | PDOC ---
PROGRESS NOTES Assessment Assessment Metabolic encephalopathy. Lethargy. Falls, right chest 6th to 9th rib fractures. Leukocytosis. Renal failure. Hyperkalemia. Hyperglycemia. UTI CAD DM HTN HLD Obesity No evidence of acute CVA this time. RECOMMENDATIONS/PLAN: Treat medical and surgical problems. Ovoid Narcotics as possible. 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 Discussed in detail with her family at bedside before. CSF on 06/11: WBC 3, RBC 26, Glucose 122, protein 63.3. Brain MRI w/o contrast performed showed no evidence of CVA this time. Contrast not given due to renal failure. HISTORY OF THE PRESENT ILLNESS: 81-y-old female patient with above medical diseases had a mechanical fall on her right side of chest. She was brought to the ER of [facility] and was found to have right 6th to 9th rib fractures. She has been lethargic, decreased response, difficult talking, so Neurology was called for consultation. Patient was not able to provide history during neurology consult due to her mental statu changes. She gained consciousness and significantly improved in mentation on 06/13. PAST MEDICAL HISTORY: Please see above. PAST SURGERY HISTORY: Cardiac stent placement. Left mastectomy Hysterectomy ALLERGY: Reviewed. MEDICATIONS: Refer to [facility] FAMILY HISTORY: Non contributory. SOCIAL HISTORY: Lives at home. Denies smoking, drinking, and illicit drug use. REVIEW OF SYSTEMS: Constitutional: No malnutrition, weight loss, cachexia. Head: No traumatic brain or head injury. Skin: No edema, or rash. Ear: No infection, tinnitus. Eyes: No vision loss or color blindness. Nose: No bleeding or purulent discharges. Hearing: Mild hearing decrease. Neck: No injury. Breast: Left mastectomy. Cardiac: CAD, stent placement, HTN, HLD. Pulmonary: No COPD. GI: No GI ulcer, GI bleeding. Urinary/genital: UTI. Endocrinologic: Diabetes Mellitus, obesity. Skeletomuscular: No muscular atrophy, deformity. Neurological: see HP. Psychiatric: Denies drug use/abuse. Otherwise, not [id number] review of systems. PHYSICAL EXAMINATION: General appearance is in subacute distress. HEENT: Normocephalic and nontraumatic. Eyes, nose, ears, and throat are unremarkable. Neck is supple. No lymphadenopathy. No crepitus. Cardiovascular: S1, S2, regular rate and rhythm. Pulmonary: Clear to auscultation bilaterally. Abdomen: Bowel sounds are positive. Extremities: No rash, lesions, or edema. No restriction of range of motion NEUROLOGICAL EXAMINATION: Awake. Sitting chair. Talking. Not oriented to time, but knows place and person. PERRL. EOMI. CN: no acute focal findings. Muscle tone: within normal. Muscle strength: 4+ DTR: 1-2 Plantar reflex: Neutral response bilaterally Gait: not examined in bed. Sensory exam: withdrew to stimuli. No cerebellar signs elicited. F-T-N test fine. Objective Objective Vital Signs Date Time Temp Pulse Resp B/P Pulse Ox O2 Delivery O2 Flow Rate FiO2 06/13/16 15:00 97.9 75 18 176/86 98 Room Air 2.0 97.9 Intake and Output 06/13/16 07:00 Intake Total 4025 ml Balance 4025 ml Intake Oral 0 ml IV Total 2775 ml Other 1250 ml # Voids 5 # Bowel Movements 2 Vitals Signs Vitals VS - Last 72 Hours, by Label Date Time Temp Pulse Resp B/P Pulse Ox O2 Delivery O2 Flow Rate FiO2 06/13/16 15:00 97.9 75 18 176/86 98 Room Air 2.0 97.9 06/13/16 08:00 Nasal Cannula 2.0 06/13/16 07:00 97.8 61 20 141/49 99 Room Air 2.0 97.8 06/13/16 03:18 98.2 77 18 169/64 92 Room Air 2.0 98.2 06/12/16 23:41 98.1 67 18 144/56 95 Room Air 2.0 98.1 06/12/16 20:00 Room Air 06/12/16 19:20 98.4 66 18 163/65 95 Nasal Cannula 2.0 98.4 06/12/16 15:00 97.4 69 18 163/53 97 Nasal Cannula 2.0 97.4 06/12/16 11:35 98.0 63 20 148/69 97 Nasal Cannula 2.0 98.0 06/12/16 07:30 Room Air 06/12/16 07:00 97.3 70 16 143/79 93 Nasal Cannula 3.0 97.3 Laboratory Laboratory Laboratory Tests Test 06/12/16 21:24 06/13/16 06:40 06/13/16 07:45 06/13/16 11:54 Glucose (Fingerstick) 182mg/dL (70-99) 199mg/dL (70-99) 244mg/dL (70-99) White Blood Count 13.5x10^3/uL (4.0-11.0) Red Blood Count 3.98x10^6/uL (3.50-5.40) Hemoglobin 12.0g/dL (12.0-15.5) Hematocrit 37.1% (36.0-47.0) Mean Corpuscular Volume 93fL (79-100) Mean Corpuscular Hemoglobin 30pg (25-35) Mean Corpuscular Hemoglobin Concent 33g/dL (31-37) Red Cell Distribution Width 13.3% (11.5-14.5) Platelet Count 207x10^3/uL (140-400) Neutrophils (%) (Auto) 75% (31-73) Lymphocytes (%) (Auto) 14% (24-48) Monocytes (%) (Auto) 8% (0-9) Eosinophils (%) (Auto) 3% (0-3) Basophils (%) (Auto) 1% (0-3) Neutrophils # (Auto) 10.2x10^3uL (1.8-7.7) Lymphocytes # (Auto) 1.9x10^3/uL (1.0-4.8) Monocytes # (Auto) 1.0x10^3/uL (0.0-1.1) Eosinophils # (Auto) 0.3x10^3/uL (0.0-0.7) Basophils # (Auto) 0.1x10^3/uL (0.0-0.2) Sodium Level 136mmol/L (136-145) Potassium Level 4.8mmol/L (3.5-5.1) Chloride Level 104mmol/L (98-107) Carbon Dioxide Level 26mmol/L (21-32) Anion Gap 6 (6-14) Blood Urea Nitrogen 26mg/dL (7-20) Creatinine 0.7mg/dL (0.6-1.0) Estimated GFR (Cockcroft-Gault) 80.1 Glucose Level 213mg/dL (70-99) Calcium Level 8.9mg/dL (8.5-10.1) Test 06/13/16 16:18 Glucose (Fingerstick) 236mg/dL (70-99) Microbiology 06/10/16 Blood Culture - Preliminary, Resulted NO GROWTH AFTER 3 DAYS 06/08/16 Urine Culture - Final, Complete 06/08/16 Urine Culture Result 1 (ALEJO) - Final, Complete Medication Medications Current Medications Acyclovir Sodium/ Dextrose (Zovirax) 262.4 ml @ 262.4 mls/ hr Q8HRS IV Last administered on 06/13/16 14:15; Start 06/13/16 at 09:00 Alteplase, Recombinant (Cathflo) 2 mg 1X ONCE INT CAT Last administered on 06/13 16:14; Start 06/13/16 at 15:00; Stop 06/13/16 at 15:01; Status DC Comment Review of Relevant I have reviewed the following items quincy (where applicable) has been applied. SOLIS WOLF MD Jun 13, 2016 17:56
[2016-06-13 19:00] VITALS: BP 154/65
[2016-06-13] MEDS: ATORVASTATIN CALCIUM 20 MG TABLET PO SCH (21:30)
[2016-06-13 23:00] VITALS: BP 161/74
[2016-06-14] MEDS: PIPERACILLIN/TAZOBACTAM 3.375 GM in IV NORMAL SALINE 50ML 50 ML IV SCH ×5 (00:13→23:38)
[2016-06-14 03:00] VITALS: BP 140/50
[2016-06-14] MEDS: IV NORMAL SALINE 1000ML BAG 1,000 ML IV SCH (03:09)
[2016-06-14] MEDS: AA 4.25%/CALCIUM/LYTES/D5W 1,000 ML IV PRN ×2 (04:53→20:34)
[2016-06-14] MEDS: ACYCLOVIR SODIUM 620 MG in IV DEXTROSE 5% 250 ML IV SCH ×3 (06:30→21:16)
[2016-06-14 06:36] LABS: BASO # 0.1 x10^3/uL (0.0-0.2); BASO % 1 % (0-3); EOS % 3 % (0-3); HEMATOCRIT 33.8 % (36.0-47.0); HEMOGLOBIN 10.7 g/dL (12.0-15.5); LYMPH # 1.8 x10^3/uL (1.0-4.8); LYMPH % 16 % (24-48); MEAN CORPUSCULAR HEMOGLOBIN 30 pg (25-35); MEAN CORPUSCULAR HGB CONC 32 g/dL (31-37); MEAN CORPUSCULAR VOLUME 95 fL (79-100); MONO % 9 % (0-9); NEUT % 72 % (31-73); PLATELET COUNT 206 x10^3/uL (140-400); RED BLOOD COUNT 3.54 x10^6/uL (3.50-5.40); RED CELL DISTRIBUTION WIDTH 13.1 % (11.5-14.5); WHITE BLOOD COUNT 11.7 x10^3/uL (4.0-11.0)
[2016-06-14 07:00] VITALS: BP 162/66
[2016-06-14] MEDS: GLIPIZIDE ER 5 MG TAB.ER.24 PO SCH (08:00)
[2016-06-14] MEDS: ASPIRIN 81 MG TAB.CHEW PO SCH (08:00)
--- NOTE | 2016-06-14 08:27 | PDOC ---
Infectious Disease Note Subjective Subjective still lethargic ROS ROS unable to do Vital Sign Vital Signs Vital Signs Date Time Temp Pulse Resp B/P Pulse Ox O2 Delivery O2 Flow Rate FiO2 06/14/16 07:00 97.6 74 162/66 96 Nasal Cannula 2.0 97.6 06/14/16 03:00 18 Physical Exam PHYSICAL EXAM GENERAL: lethargic HEENT: PERRL, OC/OP NECK: Supple, no JVD, no LN LUNGS: Clear HEART: S1S2, no gallop, no murmur ABD: Soft, NT, no organomegaly, no rebound EXT: No edema, no cyanosis [employer]: lethargic SKIN: No rash IV: ok Labs Lab Laboratory Tests Test 06/13/16 11:54 06/13/16 16:18 06/13/16 20:48 06/14/16 06:10 Glucose (Fingerstick) 244mg/dL (70-99) 236mg/dL (70-99) 228mg/dL (70-99) White Blood Count 11.7x10^3/uL (4.0-11.0) Red Blood Count 3.54x10^6/uL (3.50-5.40) Hemoglobin 10.7g/dL (12.0-15.5) Hematocrit 33.8% (36.0-47.0) Mean Corpuscular Volume 95fL (79-100) Mean Corpuscular Hemoglobin 30pg (25-35) Mean Corpuscular Hemoglobin Concent 32g/dL (31-37) Red Cell Distribution Width 13.1% (11.5-14.5) Platelet Count 206x10^3/uL (140-400) Neutrophils (%) (Auto) 72% (31-73) Lymphocytes (%) (Auto) 16% (24-48) Monocytes (%) (Auto) 9% (0-9) Eosinophils (%) (Auto) 3% (0-3) Basophils (%) (Auto) 1% (0-3) Neutrophils # (Auto) 8.4x10^3uL (1.8-7.7) Lymphocytes # (Auto) 1.8x10^3/uL (1.0-4.8) Monocytes # (Auto) 1.1x10^3/uL (0.0-1.1) Eosinophils # (Auto) 0.4x10^3/uL (0.0-0.7) Basophils # (Auto) 0.1x10^3/uL (0.0-0.2) Test 06/14/16 07:08 Glucose (Fingerstick) 238mg/dL (70-99) Objective Assessment ? sepsis Leukocytosis Acute encephalopathy, etiology unclear Bloody diarrhea ANT Multiple rib fractures post mechanical fall DM Type II CAD h/o CVA Recent UTI on cipro Plan Plan of Care Zosyn Check stool c. 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
[2016-06-14 08:43] LABS: CREATININE 0.7 mg/dL (0.6-1.0); GFR 80.1; POTASSIUM 4.3 mmol/L (3.5-5.1)
[2016-06-14] MEDS: PANTOPRAZOLE IV PUSH 40 MG VIAL. IVP SCH (08:55)
[2016-06-14] MEDS: FLUTICASONE 50MCG/NASAL SPRAY 16GM BOTTLE. NS SCH (08:55)
--- NOTE | 2016-06-14 08:57 | RAD ---
EXAM: Chest one view. HISTORY: Pneumothorax. COMPARISON: 06/13/2016. FINDINGS: A frontal view of the chest is obtained. A right arm PICC line has its tip in the superior vena cava. Multiple right-sided rib fractures are again noted. No residual pneumothorax is appreciable. The right hemidiaphragm is mildly elevated with mild atelectasis in the bases is stable. There is no clear pleural effusion. The heart is not enlarged. There are atherosclerotic calcifications of the aorta. IMPRESSION: 1. No appreciable residual pneumothorax. 2. Multiple right rib fractures.
[2016-06-14] MEDS: INSULIN ASPART 300 UNITS/3 ML INSULN.PEN SQ SCH ×4 (08:59→20:34)
[2016-06-14] MEDS: LISINOPRIL 5 MG TABLET. PO SCH (09:00)
[2016-06-14] MEDS: CALCIUM CARB/VIT D3 500/200 TABLET PO SCH (09:00)
[2016-06-14] MEDS: DULOXETINE HCL 30 MG CAPSULE.DR. PO SCH (09:00)
[2016-06-14] MEDS: DOCUSATE SODIUM 100 MG CAPSULE PO SCH (09:00)
[2016-06-14] MEDS: OMEGA-3 FATTY ACIDS/FISH OIL 1,000 MG CAPSULE. PO SCH (09:00)
[2016-06-14] MEDS: MULTIVITAMIN with MINERAL TABLET. PO SCH (09:00)
[2016-06-14] MEDS: LIDOCAINE (700MG/PATCH) PATCH. TD SCH (09:00)
--- NOTE | 2016-06-14 10:48 | PDOC ---
PULMONARY PROGRESS NOTES Subjective sleepy again no soa Vitals Vital Signs Date Time Temp Pulse Resp B/P Pulse Ox O2 Delivery O2 Flow Rate FiO2 06/14/16 08:00 Nasal Cannula 2.0 06/14/16 07:00 97.6 74 162/66 96 97.6 06/14/16 03:00 18 HEENT: Other Lungs: Clear Cardiovascular: S1, S2 Abdomen: Soft Extremities: No Edema Skin: Warm Labs Laboratory Tests Test 06/12/16 11:30 06/12/16 16:08 06/12/16 21:24 06/13/16 06:40 Glucose (Fingerstick) 174mg/dL (70-99) 213mg/dL (70-99) 182mg/dL (70-99) White Blood Count 13.5x10^3/uL (4.0-11.0) Red Blood Count 3.98x10^6/uL (3.50-5.40) Hemoglobin 12.0g/dL (12.0-15.5) Hematocrit 37.1% (36.0-47.0) Mean Corpuscular Volume 93fL (79-100) Mean Corpuscular Hemoglobin 30pg (25-35) Mean Corpuscular Hemoglobin Concent 33g/dL (31-37) Red Cell Distribution Width 13.3% (11.5-14.5) Platelet Count 207x10^3/uL (140-400) Neutrophils (%) (Auto) 75% (31-73) Lymphocytes (%) (Auto) 14% (24-48) Monocytes (%) (Auto) 8% (0-9) Eosinophils (%) (Auto) 3% (0-3) Basophils (%) (Auto) 1% (0-3) Neutrophils # (Auto) 10.2x10^3uL (1.8-7.7) Lymphocytes # (Auto) 1.9x10^3/uL (1.0-4.8) Monocytes # (Auto) 1.0x10^3/uL (0.0-1.1) Eosinophils # (Auto) 0.3x10^3/uL (0.0-0.7) Basophils # (Auto) 0.1x10^3/uL (0.0-0.2) Sodium Level 136mmol/L (136-145) Potassium Level 4.8mmol/L (3.5-5.1) Chloride Level 104mmol/L (98-107) Carbon Dioxide Level 26mmol/L (21-32) Anion Gap 6 (6-14) Blood Urea Nitrogen 26mg/dL (7-20) Creatinine 0.7mg/dL (0.6-1.0) Estimated GFR (Cockcroft-Gault) 80.1 Glucose Level 213mg/dL (70-99) Calcium Level 8.9mg/dL (8.5-10.1) Test 06/13/16 07:45 06/13/16 11:54 06/13/16 16:18 06/13/16 20:48 Glucose (Fingerstick) 199mg/dL (70-99) 244mg/dL (70-99) 236mg/dL (70-99) 228mg/dL (70-99) Test 06/14/16 06:10 06/14/16 07:08 06/14/16 08:00 White Blood Count 11.7x10^3/uL (4.0-11.0) Red Blood Count 3.54x10^6/uL (3.50-5.40) Hemoglobin 10.7g/dL (12.0-15.5) Hematocrit 33.8% (36.0-47.0) Mean Corpuscular Volume 95fL (79-100) Mean Corpuscular Hemoglobin 30pg (25-35) Mean Corpuscular Hemoglobin Concent 32g/dL (31-37) Red Cell Distribution Width 13.1% (11.5-14.5) Platelet Count 206x10^3/uL (140-400) Neutrophils (%) (Auto) 72% (31-73) Lymphocytes (%) (Auto) 16% (24-48) Monocytes (%) (Auto) 9% (0-9) Eosinophils (%) (Auto) 3% (0-3) Basophils (%) (Auto) 1% (0-3) Neutrophils # (Auto) 8.4x10^3uL (1.8-7.7) Lymphocytes # (Auto) 1.8x10^3/uL (1.0-4.8) Monocytes # (Auto) 1.1x10^3/uL (0.0-1.1) Eosinophils # (Auto) 0.4x10^3/uL (0.0-0.7) Basophils # (Auto) 0.1x10^3/uL (0.0-0.2) Glucose (Fingerstick) 238mg/dL (70-99) Sodium Level 135mmol/L (136-145) Potassium Level 4.3mmol/L (3.5-5.1) Chloride Level 101mmol/L (98-107) Carbon Dioxide Level 27mmol/L (21-32) Anion Gap 7 (6-14) Blood Urea Nitrogen 24mg/dL (7-20) Creatinine 0.7mg/dL (0.6-1.0) Estimated GFR (Cockcroft-Gault) 80.1 Glucose Level 259mg/dL (70-99) Calcium Level 9.0mg/dL (8.5-10.1) Laboratory Tests Test 06/13/16 11:54 06/13/16 16:18 06/13/16 20:48 06/14/16 06:10 Glucose (Fingerstick) 244mg/dL (70-99) 236mg/dL (70-99) 228mg/dL (70-99) White Blood Count 11.7x10^3/uL (4.0-11.0) Red Blood Count 3.54x10^6/uL (3.50-5.40) Hemoglobin 10.7g/dL (12.0-15.5) Hematocrit 33.8% (36.0-47.0) Mean Corpuscular Volume 95fL (79-100) Mean Corpuscular Hemoglobin 30pg (25-35) Mean Corpuscular Hemoglobin Concent 32g/dL (31-37) Red Cell Distribution Width 13.1% (11.5-14.5) Platelet Count 206x10^3/uL (140-400) Neutrophils (%) (Auto) 72% (31-73) Lymphocytes (%) (Auto) 16% (24-48) Monocytes (%) (Auto) 9% (0-9) Eosinophils (%) (Auto) 3% (0-3) Basophils (%) (Auto) 1% (0-3) Neutrophils # (Auto) 8.4x10^3uL (1.8-7.7) Lymphocytes # (Auto) 1.8x10^3/uL (1.0-4.8) Monocytes # (Auto) 1.1x10^3/uL (0.0-1.1) Eosinophils # (Auto) 0.4x10^3/uL (0.0-0.7) Basophils # (Auto) 0.1x10^3/uL (0.0-0.2) Test 06/14/16 07:08 06/14/16 08:00 Glucose (Fingerstick) 238mg/dL (70-99) Sodium Level 135mmol/L (136-145) Potassium Level 4.3mmol/L (3.5-5.1) Chloride Level 101mmol/L (98-107) Carbon Dioxide Level 27mmol/L (21-32) Anion Gap 7 (6-14) Blood Urea Nitrogen 24mg/dL (7-20) Creatinine 0.7mg/dL (0.6-1.0) Estimated GFR (Cockcroft-Gault) 80.1 Glucose Level 259mg/dL (70-99) Calcium Level 9.0mg/dL (8.5-10.1) Medications Active Scripts Medications Dose Route/Sig Days Date Category Ciprofloxacin 250 Mg/5 Ml Christina.mc.rec 250 Mg PO BID 02/22/16 Rx Children's Aspirin (Aspirin) 81 Mg Tab.chew 81 Mg PO DAILYWBKFT 30 01/04/16 Rx Glipizide Er (Glipizide) 5 Mg Tab.er.24 10 Mg PO DAILY 04/25/15 Rx Pravachol (Pravastatin Sodium) 80 Mg Tablet 80 Mg PO DAILY 05/12/14 Reported Multi-Vitamin Daily (Multivitamin) 1 Each Tablet 1 Each PO DAILY 05/12/14 Reported Lisinopril 5 Mg Tablet 5 Mg PO DAILY 05/12/14 Reported Flonase (Fluticasone Propionate) 16 Gm Lincoln.susp 2 [place] NS DAILY 05/12/14 Reported Famotidine 40 Mg Tablet 40 Mg PO DAILY 05/12/14 Reported Cymbalta (Duloxetine Hcl) 60 Mg Capsule.dr 60 Mg PO DAILY 05/12/14 Reported Docusate Sodium 100 Mg Capsule 100 Mg PO DAILY 05/12/14 Reported Fish Oil Concentrate Softgel (Docosahexanoic Acid/Epa) 1 Each Capsule 1 Each PO DAILY 05/12/14 Reported Caltrate 600 + D Tablet (Calcium Carbonate/Vitamin D3) 1 Each Tablet 1 Each PO DAILY 05/12/14 Reported Impression . Traumatic small right PTX, continues to improve, no intervention needed s/p fall, multiple right rib fractures encephalopathy per neurology right chest 6th to 9th rib fractures. h/o VENUS Plan . From pulmonary standpoint ,no intervention CXR improving 3/7 off benzo and narcotics. Discussed in detail with RN home CPAP qhs will see CESAR HWANG MD Jun 14, 2016 10:48
[2016-06-14 11:00] VITALS: BP 158/86
--- NOTE | 2016-06-14 11:20 | PDOC ---
PROGRESS NOTES Chief Complaint Chief Complaint acute metabolic encephalopathy 1. Right rib fxs number 6-9 2. Altered Mental Status 3. Leukocytosis 4. H/o GERD 5. 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 Scoliosis 8. HTN 9. Diabetes History of Present Illness History of Present Illness a little worse today less alert has poor recall from yesterday, recollection is poor less oriented today Vitals Vitals Vital Signs Date Time Temp Pulse Resp B/P Pulse Ox O2 Delivery O2 Flow Rate FiO2 06/14/16 08:00 Nasal Cannula 2.0 06/14/16 07:00 97.6 74 162/66 96 97.6 06/14/16 03:00 18 Physical Exam Physical Exam confused, General: Cooperative, No acute distress, Other (lethergic, open eyes to pain stimuli) Heart: Regular rate, Normal S1, Normal S2, No murmurs Lungs: Clear Abdomen: Soft, No masses, Other (Tender, w. some guarding) Extremities: No cyanosis, No edema Skin: No breakdown, No significant lesion Labs LABS Laboratory Tests Test 06/13/16 11:54 06/13/16 16:18 06/13/16 20:48 06/14/16 06:10 Glucose (Fingerstick) 244mg/dL (70-99) 236mg/dL (70-99) 228mg/dL (70-99) White Blood Count 11.7x10^3/uL (4.0-11.0) Red Blood Count 3.54x10^6/uL (3.50-5.40) Hemoglobin 10.7g/dL (12.0-15.5) Hematocrit 33.8% (36.0-47.0) Mean Corpuscular Volume 95fL (79-100) Mean Corpuscular Hemoglobin 30pg (25-35) Mean Corpuscular Hemoglobin Concent 32g/dL (31-37) Red Cell Distribution Width 13.1% (11.5-14.5) Platelet Count 206x10^3/uL (140-400) Neutrophils (%) (Auto) 72% (31-73) Lymphocytes (%) (Auto) 16% (24-48) Monocytes (%) (Auto) 9% (0-9) Eosinophils (%) (Auto) 3% (0-3) Basophils (%) (Auto) 1% (0-3) Neutrophils # (Auto) 8.4x10^3uL (1.8-7.7) Lymphocytes # (Auto) 1.8x10^3/uL (1.0-4.8) Monocytes # (Auto) 1.1x10^3/uL (0.0-1.1) Eosinophils # (Auto) 0.4x10^3/uL (0.0-0.7) Basophils # (Auto) 0.1x10^3/uL (0.0-0.2) Test 06/14/16 07:08 06/14/16 08:00 06/14/16 10:57 Glucose (Fingerstick) 238mg/dL (70-99) 204mg/dL (70-99) Sodium Level 135mmol/L (136-145) Potassium Level 4.3mmol/L (3.5-5.1) Chloride Level 101mmol/L (98-107) Carbon Dioxide Level 27mmol/L (21-32) Anion Gap 7 (6-14) Blood Urea Nitrogen 24mg/dL (7-20) Creatinine 0.7mg/dL (0.6-1.0) Estimated GFR (Cockcroft-Gault) 80.1 Glucose Level 259mg/dL (70-99) Calcium Level 9.0mg/dL (8.5-10.1) Assessment and Plan Assessmemt and Plan cont current neuro following PT and OT as Problems Medical Problems: (1) Fall Status: Acute (2) Fall (on) (from) other stairs and steps, initial encounter Status: Acute (3) Ribs, multiple fractures Status: Acute Problems: Comment Review of Relevant I have reviewed the following items quincy (where applicable) has been applied. Labs Laboratory Tests Test 06/12/16 11:30 06/12/16 16:08 06/12/16 21:24 06/13/16 06:40 Glucose (Fingerstick) 174mg/dL (70-99) 213mg/dL (70-99) 182mg/dL (70-99) White Blood Count 13.5x10^3/uL (4.0-11.0) Red Blood Count 3.98x10^6/uL (3.50-5.40) Hemoglobin 12.0g/dL (12.0-15.5) Hematocrit 37.1% (36.0-47.0) Mean Corpuscular Volume 93fL (79-100) Mean Corpuscular Hemoglobin 30pg (25-35) Mean Corpuscular Hemoglobin Concent 33g/dL (31-37) Red Cell Distribution Width 13.3% (11.5-14.5) Platelet Count 207x10^3/uL (140-400) Neutrophils (%) (Auto) 75% (31-73) Lymphocytes (%) (Auto) 14% (24-48) Monocytes (%) (Auto) 8% (0-9) Eosinophils (%) (Auto) 3% (0-3) Basophils (%) (Auto) 1% (0-3) Neutrophils # (Auto) 10.2x10^3uL (1.8-7.7) Lymphocytes # (Auto) 1.9x10^3/uL (1.0-4.8) Monocytes # (Auto) 1.0x10^3/uL (0.0-1.1) Eosinophils # (Auto) 0.3x10^3/uL (0.0-0.7) Basophils # (Auto) 0.1x10^3/uL (0.0-0.2) Sodium Level 136mmol/L (136-145) Potassium Level 4.8mmol/L (3.5-5.1) Chloride Level 104mmol/L (98-107) Carbon Dioxide Level 26mmol/L (21-32) Anion Gap 6 (6-14) Blood Urea Nitrogen 26mg/dL (7-20) Creatinine 0.7mg/dL (0.6-1.0) Estimated GFR (Cockcroft-Gault) 80.1 Glucose Level 213mg/dL (70-99) Calcium Level 8.9mg/dL (8.5-10.1) Test 06/13/16 07:45 06/13/16 11:54 06/13/16 16:18 06/13/16 20:48 Glucose (Fingerstick) 199mg/dL (70-99) 244mg/dL (70-99) 236mg/dL (70-99) 228mg/dL (70-99) Test 06/14/16 06:10 06/14/16 07:08 06/14/16 08:00 06/14/16 10:57 White Blood Count 11.7x10^3/uL (4.0-11.0) Red Blood Count 3.54x10^6/uL (3.50-5.40) Hemoglobin 10.7g/dL (12.0-15.5) Hematocrit 33.8% (36.0-47.0) Mean Corpuscular Volume 95fL (79-100) Mean Corpuscular Hemoglobin 30pg (25-35) Mean Corpuscular Hemoglobin Concent 32g/dL (31-37) Red Cell Distribution Width 13.1% (11.5-14.5) Platelet Count 206x10^3/uL (140-400) Neutrophils (%) (Auto) 72% (31-73) Lymphocytes (%) (Auto) 16% (24-48) Monocytes (%) (Auto) 9% (0-9) Eosinophils (%) (Auto) 3% (0-3) Basophils (%) (Auto) 1% (0-3) Neutrophils # (Auto) 8.4x10^3uL (1.8-7.7) Lymphocytes # (Auto) 1.8x10^3/uL (1.0-4.8) Monocytes # (Auto) 1.1x10^3/uL (0.0-1.1) Eosinophils # (Auto) 0.4x10^3/uL (0.0-0.7) Basophils # (Auto) 0.1x10^3/uL (0.0-0.2) Glucose (Fingerstick) 238mg/dL (70-99) 204mg/dL (70-99) Sodium Level 135mmol/L (136-145) Potassium Level 4.3mmol/L (3.5-5.1) Chloride Level 101mmol/L (98-107) Carbon Dioxide Level 27mmol/L (21-32) Anion Gap 7 (6-14) Blood Urea Nitrogen 24mg/dL (7-20) Creatinine 0.7mg/dL (0.6-1.0) Estimated GFR (Cockcroft-Gault) 80.1 Glucose Level 259mg/dL (70-99) Calcium Level 9.0mg/dL (8.5-10.1) Laboratory Tests Test 3/8/17 11:54 06/13/16 16:18 06/13/16 20:48 06/14/16 06:10 Glucose (Fingerstick) 244mg/dL (70-99) 236mg/dL (70-99) 228mg/dL (70-99) White Blood Count 11.7x10^3/uL (4.0-11.0) Red Blood Count 3.54x10^6/uL (3.50-5.40) Hemoglobin 10.7g/dL (12.0-15.5) Hematocrit 33.8% (36.0-47.0) Mean Corpuscular Volume 95fL (79-100) Mean Corpuscular Hemoglobin 30pg (25-35) Mean Corpuscular Hemoglobin Concent 32g/dL (31-37) Red Cell Distribution Width 13.1% (11.5-14.5) Platelet Count 206x10^3/uL (140-400) Neutrophils (%) (Auto) 72% (31-73) Lymphocytes (%) (Auto) 16% (24-48) Monocytes (%) (Auto) 9% (0-9) Eosinophils (%) (Auto) 3% (0-3) Basophils (%) (Auto) 1% (0-3) Neutrophils # (Auto) 8.4x10^3uL (1.8-7.7) Lymphocytes # (Auto) 1.8x10^3/uL (1.0-4.8) Monocytes # (Auto) 1.1x10^3/uL (0.0-1.1) Eosinophils # (Auto) 0.4x10^3/uL (0.0-0.7) Basophils # (Auto) 0.1x10^3/uL (0.0-0.2) Test 06/14/16 07:08 06/14/16 08:00 06/14/16 10:57 Glucose (Fingerstick) 238mg/dL (70-99) 204mg/dL (70-99) Sodium Level 135mmol/L (136-145) Potassium Level 4.3mmol/L (3.5-5.1) Chloride Level 101mmol/L (98-107) Carbon Dioxide Level 27mmol/L (21-32) Anion Gap 7 (6-14) Blood Urea Nitrogen 24mg/dL (7-20) Creatinine 0.7mg/dL (0.6-1.0) Estimated GFR (Cockcroft-Gault) 80.1 Glucose Level 259mg/dL (70-99) Calcium Level 9.0mg/dL (8.5-10.1) Microbiology 06/10/16 Blood Culture - Preliminary, Resulted NO GROWTH AFTER 3 DAYS 06/08/16 Urine Culture - Final, Complete 06/08/16 Urine Culture Result 1 (ALEJO) - Final, Complete Medications Current Medications Lidocaine (Lidoderm) 1 patch 1X ONCE TD Last administered on 06/08/16 09:12; Start 06/08/16 at 09:00; Stop 06/08/16 at 09:01; Status DC Acetaminophen (Tylenol) 1,000 mg 1X ONCE PO Last administered on 06/08/16 09: 12; Start 06/08/16 at 09:00; Stop 06/08/16 at 09:01; Status DC Oxycodone/ Acetaminophen (Percocet 5/325) 1 tab 1X ONCE PO Last administered on 06/08/16 10:00; Start 06/08/16 at 10:00; Stop 06/08/16 at 10:01; Status DC Ondansetron HCl (Zofran) 4 mg PRN Q6HRS PRN IV NAUSEA/VOMITING; Start 06/08/16 at 12:00; Stop 06/12/16 at 09:19; Status DC Al Hydrox/Mg Hydrox/Simethicone (Mylanta Plus Xs) 30 ml PRN Q3HRS PRN PO HEARTBURN / GAS; Start 06/08/16 at 12:00; Stop 06/12/16 at 09:19; Status DC Calcium Carbonate/ Glycine (Tums) 500 mg PRN Q3HRS PRN PO UPSET STOMACH; Start 06/08/16 at 12:00; Stop 06/12/16 at 09:19; Status DC Oxycodone HCl (Roxicodone) 5 mg PRN Q3HRS PRN PO BREAKTHROUGH PAIN; Start at 12:00; Stop 06/12/16 at 09:19; Status DC Morphine Sulfate 1 mg PRN Q2HR PRN IV PAIN; Start 06/08/16 at 12:00; Stop at 09:19; Status DC Oxycodone/ Acetaminophen (Percocet 5/325) 1 tab PRN Q4HRS PRN PO MILD PAIN, 1ST CHOICE Last administered on 06/09/16 15:03; Start 06/08/16 at 12:00; Stop 06/12/16 at 09:19; Status DC Docusate Sodium (Colace) 100 mg BID PO ; Start 06/08/16 at 21:00; Status Cancel Magnesium Hydroxide (Milk Of Magnesia) 2,400 mg PRN Q12HR PRN PO CONSTIPATION; Start 06/08/16 at 12:00; Stop 06/12/16 at 09:19; Status DC Lactulose 20 gm PRN Q12HR PRN PO CONSTIPATION; Start 06/08/16 at 12:00; Stop 06/12/16 at 09:19; Status DC Bisacodyl (Dulcolax Supp) 10 mg PRN DAILY PRN [place] CONSTIPATION; Start 06/08/16 at 12:00; Stop 06/12/16 at 09:19; Status DC Enoxaparin Sodium (Lovenox 40mg Syringe) 40 mg DAILY16 SQ Last administered on 06/09/16 15:03; Start 06/08/16 at 16:00; Stop 06/10/16 at 12:52; Status DC Lidocaine (Lidoderm) 1 patch DAILY TD Last administered on 06/09/16 07:41; Start 06/08/16 at 13:00 Aspirin (Children'S Aspirin) 81 mg DAILYWBKFT PO Last administered on 06/09/16 07:41; Start 06/08/16 at 13:00 Docusate Sodium (Colace) 100 mg DAILY PO Last administered on 06/09/16 09:00; Start 06/09/16 at 09:00 Fluticasone Propionate (Flonase) 2 spray DAILY NS Last administered on 08:55; Start 06/08/16 at 13:00 Glipizide (Glucotrol Er) 10 mg DAILY08 PO Last administered on 06/09/16 07:38; Start 06/08/16 at 13:00 Lisinopril (Prinivil) 5 mg DAILY PO Last administered on 06/09/16 07:39; Start 06/08/16 at 13:00 Calcium/Vitamin D (Oscal D 500mg/ 200uts) 1 tab DAILY PO Last administered on 07:39; Start 06/08/16 at 13:00 Fish Oil (Fish Oil) 1,000 mg DAILY PO Last administered on 06/09/16 07:38; Start 06/08/16 at 13:00 Duloxetine HCl (Cymbalta) 60 mg DAILY PO Last administered on 06/09/16 07:40; Start 06/08/16 at 13:00 Famotidine (Pepcid) 40 mg DAILY PO Last administered on 06/09/16 07:40; Start 06/08/16 at 13:00; Stop 06/10/16 at 11:55; Status DC Multivitamins/ Calcium (Thera M Plus) 1 tab DAILY PO Last administered on 07:39; Start 06/08/16 at 13:00 Atorvastatin Calcium (Lipitor) 20 mg QHS PO Last administered on 06/08/16 20:56 ; Start 06/08/16 at 21:00 Insulin Aspart (Novolog) 0-9 UNITS TIDWMEALS SQ Last administered on 06/13/16 17:49; Start 06/08/16 at 12:30; Stop 06/13/16 at 20:54; Status DC Dextrose 12.5 gm PRN Q15MIN PRN IV SEE COMMENTS; Start 06/08/16 at 12:15 Ondansetron HCl 4 mg 4 mg PRN Q8HRS PRN IV NAUSEA/VOMITING; Start 06/08/16 at 12 :45; Stop 06/09/16 at 12:44; Status DC Piperacillin Sod/ Tazobactam Sod/ Sodium Chloride (Zosyn/Iv Sodium Chloride 0.9 % 50ml) 50 ml @ 100 mls/hr Q6HRS IV Last administered on 06/14/16 06:00; Start 06/10/16 at 12:00 Pantoprazole Sodium 40 mg 40 mg DAILYAC IVP Last administered on 06/14/16 08:55 ; Start 06/10/16 at 11:00 Amino Acids/ Electrolytes/ Dextrose 1,000 ml @ 75 mls/hr Q21Q54X PRN IV . Last administered on 06/14/16 04:53; Start 06/10/16 at 11:00 Sodium Chloride (Iv Sodium Chloride 0.9% 1000ml Bag) 1,000 ml @ 50 mls/hr Q20H IV Last administered on 06/14/16 03:09; Start 06/10/16 at 11:00 Naloxone HCl (Narcan) 0.4 mg PRN Q2MIN PRN IV SEE COMMENTS; Start 06/10/16 at 11 :30 Naloxone HCl 0.4 mg 0.4 mg 1X ONCE IV Last administered on 06/10/16 12:07; Start 06/10/16 at 12:00; Stop 06/10/16 at 12:01; Status DC Daptomycin 500 mg/ Sodium Chloride 50 ml @ 100 mls/hr Q24H IV Last administered on 06/10/16 14:56; Start 06/10/16 at 14:00; Stop 06/10/16 at 18:00; Status DC Metronidazole (FLAGYL 500Mmg PREMIX) 100 ml @ 100 mls/hr Q8H IV Last administered on 06/12/16 08:08; Start 06/10/16 at 16:00; Stop 06/12/16 at 09:07; Status DC Lorazepam (Ativan) 1 mg PRN Q4HRS PRN IV ANXIETY / AGITATION Last administered on 06/10/16 17:28; Start 06/10/16 at 17:00; Stop 06/12/16 at 09:19; Status DC Flumazenil 0.1 mg 0.1 mg 1X ONCE IV Last administered on 06/11/16 15:15; Start 06/11/16 at 14:30; Stop 06/11/16 at 14:33; Status DC Acyclovir Sodium/ Dextrose (Zovirax) 262.4 ml @ 262.4 mls/ hr Q8HRS IV Last administered on 06/14/16 06:30; Start 06/13/16 at 09:00 Alteplase, Recombinant (Cathflo) 2 mg 1X ONCE INT CAT Last administered on 06/13 16:14; Start 06/13/16 at 15:00; Stop 06/13/16 at 15:01; Status DC Insulin Aspart (Novolog) 0-9 UNITS QIDACHS SQ Last administered on 06/14/16 08: 59; Start 06/13/16 at 21:00 Active Scripts Active Ciprofloxacin 250 Mg/5 Ml Christina.mc.rec 250 Mg PO BID Children's Aspirin (Aspirin) 81 Mg Tab.chew 81 Mg PO DAILYWBKFT 30 Days Glipizide Er (Glipizide) 5 Mg Tab.er.24 10 Mg PO DAILY Reported Pravachol (Pravastatin Sodium) 80 Mg Tablet 80 Mg PO DAILY Multi-Vitamin Daily (Multivitamin) 1 Each Tablet 1 Each PO DAILY Lisinopril 5 Mg Tablet 5 Mg PO DAILY Flonase (Fluticasone Propionate) 16 Gm Addison.susp 2 [place]ison NS DAILY Famotidine 40 Mg Tablet 40 Mg PO DAILY Cymbalta (Duloxetine Hcl) 60 Mg Capsule.dr 60 Mg PO DAILY Docusate Sodium 100 Mg Capsule 100 Mg PO DAILY Fish Oil Concentrate Softgel (Docosahexanoic Acid/Epa) 1 Each Capsule 1 Each PO DAILY Caltrate 600 + D Tablet (Calcium Carbonate/Vitamin D3) 1 Each Tablet 1 Each PO DAILY Vitals/I & O Vital Sign - Last 24 Hours 06/13/16 06/13/16 06/13/16 06/13/16 15:00 19:00 20:15 23:00 Temp 97.9 98.3 98.3 97.9 98.3 98.3 Pulse 75 62 80 Resp 18 18 18 B/P 176/86 154/65 161/74 Pulse Ox 98 95 93 O2 Delivery Room Air Room Air Nasal Cannula Nasal Cannula O2 Flow Rate 2.0 2.0 2.0 2.0 06/14/16 06/14/16 06/14/16 03:00 07:00 08:00 Temp 98.0 97.6 98.0 97.6 Pulse 58 74 Resp 18 B/P 140/50 162/66 Pulse Ox 98 96 O2 Delivery Nasal Cannula Nasal Cannula Nasal Cannula O2 Flow Rate 2.0 2.0 2.0 Intake and Output 06/13/16 06/13/16 06/14/16 15:00 23:00 07:00 Intake Total 262.4 ml 1478 ml Balance 262.4 ml 1478 ml TAI CELESTE MD Jun 14, 2016 11:20
--- NOTE | 2016-06-14 11:21 | PDOC ---
Objective: Objective: RN received report of passage of mucousy old blood yesterday. Failed swallow eval. Vital Signs: Vital Signs Date Time Temp Pulse Resp B/P Pulse Ox O2 Delivery O2 Flow Rate FiO2 06/14/16 08:00 Nasal Cannula 2.0 06/14/16 07:00 97.6 74 162/66 96 97.6 06/14/16 03:00 18 Labs: Laboratory Tests Test 06/13/16 11:54 06/13/16 16:18 06/13/16 20:48 06/14/16 07:08 Glucose (Fingerstick) 244mg/dL (70-99) 236mg/dL (70-99) 228mg/dL (70-99) 238mg/dL (70-99) Test 06/14/16 10:57 Glucose (Fingerstick) 204mg/dL (70-99) Imaging: CXR 06/14/16 IMPRESSION: 1. No appreciable residual pneumothorax. 2. Multiple right rib fractures. PE: GEN: NAD LUNGS: decreased, poor effort HEART: RRR ABD: BS+, non-tender? NEURO/PSYCH: says "good morning," doesn't open eyes or answer questions A/P: Rectal bleeding, possible ischemic colitis -Hgb from 12 to 10.7 Encephalopathy -NPO on PPN -ongoing neuro workup Right rib fractures -no residual pneumothorax on CXR -- Continue same per GI. OVI LAKHANI Jun 14, 2016 11:21
[2016-06-14 12:18] LABS: WEST NILE IGG CSF Negative (Negative); WEST NILE IGM CSF Negative (Negative)
--- NOTE | 2016-06-14 14:29 | PDOC ---
PROGRESS NOTES Assessment Assessment Metabolic encephalopathy. Lethargy. Falls, right chest 6th to 9th rib fractures. Leukocytosis. Renal failure. Hyperkalemia. Hyperglycemia. UTI CAD DM HTN HLD Obesity No evidence of acute CVA this time. RECOMMENDATIONS/PLAN: Treat medical and surgical problems. Ovoid Narcotics as possible. 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 [place] tests negative in CSF.. Discussed in detail with her family at bedside before. CSF on 06/11: WBC 3, RBC 26, Glucose 122, protein 63.3. Brain MRI w/o contrast performed showed no evidence of CVA this time. Contrast not given due to renal failure. EEG on 06/14: Posterior dominant rhythm is mildly slow for age. HISTORY OF THE PRESENT ILLNESS: 81-y-old female patient with above medical diseases had a mechanical fall on her right side of chest. She was brought to the ER of [facility] and was found to have right 6th to 9th rib fractures. She has been lethargic, decreased response, difficult talking, so Neurology was called for consultation. Patient was not able to provide history during neurology consult due to her mental statu changes. She gained consciousness and significantly improved in mentation since 06/13. PAST MEDICAL HISTORY: Please see above. PAST SURGERY HISTORY: Cardiac stent placement. Left mastectomy Hysterectomy ALLERGY: Reviewed. MEDICATIONS: Refer to [facility] FAMILY HISTORY: Non contributory. SOCIAL HISTORY: Lives at home. Denies smoking, drinking, and illicit drug use. REVIEW OF SYSTEMS: Constitutional: No malnutrition, weight loss, cachexia. Head: No traumatic brain or head injury. Skin: No edema, or rash. Ear: No infection, tinnitus. Eyes: No vision loss or color blindness. Nose: No bleeding or purulent discharges. Hearing: Mild hearing decrease. Neck: No injury. Breast: Left mastectomy. Cardiac: CAD, stent placement, HTN, HLD. Pulmonary: No COPD. GI: No GI ulcer, GI bleeding. Urinary/genital: UTI. Endocrinologic: Diabetes Mellitus, obesity. Skeletomuscular: No muscular atrophy, deformity. Neurological: see HP. Psychiatric: Denies drug use/abuse. Otherwise, not [id number] review of systems. PHYSICAL EXAMINATION: General appearance is in subacute distress. HEENT: Normocephalic and nontraumatic. Eyes, nose, ears, and throat are unremarkable. Neck is supple. No lymphadenopathy. No crepitus. Cardiovascular: S1, S2, regular rate and rhythm. Pulmonary: Clear to auscultation bilaterally. Abdomen: Bowel sounds are positive. Extremities: No rash, lesions, or edema. No restriction of range of motion NEUROLOGICAL EXAMINATION: Sleepiness, but arousable. Not oriented to time, but knows place and person. PERRL. EOMI. CN: no acute focal findings. Muscle tone: within normal. Muscle strength: 4+ DTR: 1-2 Plantar reflex: Neutral response bilaterally Gait: not examined in bed. Sensory exam: withdrew to stimuli. No cerebellar signs elicited. F-T-N test fine. Objective Objective Vital Signs Date Time Temp Pulse Resp B/P Pulse Ox O2 Delivery O2 Flow Rate FiO2 06/14/16 11:00 97.8 67 12 158/86 98 Nasal Cannula 2.0 97.8 Intake and Output 06/14/16 07:00 Intake Total 1740.4 ml Balance 1740.4 ml Intake Oral 0 ml IV Total 1740.4 ml # Voids 5 # Bowel Movements 3 Vitals Signs Vitals VS - Last 72 Hours, by Label Date Time Temp Pulse Resp B/P Pulse Ox O2 Delivery O2 Flow Rate FiO2 06/14/16 11:00 97.8 67 12 158/86 98 Nasal Cannula 2.0 97.8 06/14/16 08:00 Nasal Cannula 2.0 06/14/16 07:00 97.6 74 162/66 96 Nasal Cannula 2.0 97.6 06/14/16 03:00 98.0 58 18 140/50 98 Nasal Cannula 2.0 98.0 06/13/16 23:00 98.3 80 18 161/74 93 Nasal Cannula 2.0 98.3 06/13/16 20:15 Nasal Cannula 2.0 06/13/16 19:00 98.3 62 18 154/65 95 Room Air 2.0 98.3 06/13/16 15:00 97.9 75 18 176/86 98 Room Air 2.0 97.9 06/13/16 08:00 Nasal Cannula 2.0 06/13/16 07:00 97.8 61 20 141/49 99 Room Air 2.0 97.8 Laboratory Laboratory Laboratory Tests Test 06/13/16 16:18 06/13/16 20:48 06/14/16 06:10 06/14/16 07:08 Glucose (Fingerstick) 236mg/dL (70-99) 228mg/dL (70-99) 238mg/dL (70-99) White Blood Count 11.7x10^3/uL (4.0-11.0) Red Blood Count 3.54x10^6/uL (3.50-5.40) Hemoglobin 10.7g/dL (12.0-15.5) Hematocrit 33.8% (36.0-47.0) Mean Corpuscular Volume 95fL (79-100) Mean Corpuscular Hemoglobin 30pg (25-35) Mean Corpuscular Hemoglobin Concent 32g/dL (31-37) Red Cell Distribution Width 13.1% (11.5-14.5) Platelet Count 206x10^3/uL (140-400) Neutrophils (%) (Auto) 72% (31-73) Lymphocytes (%) (Auto) 16% (24-48) Monocytes (%) (Auto) 9% (0-9) Eosinophils (%) (Auto) 3% (0-3) Basophils (%) (Auto) 1% (0-3) Neutrophils # (Auto) 8.4x10^3uL (1.8-7.7) Lymphocytes # (Auto) 1.8x10^3/uL (1.0-4.8) Monocytes # (Auto) 1.1x10^3/uL (0.0-1.1) Eosinophils # (Auto) 0.4x10^3/uL (0.0-0.7) Basophils # (Auto) 0.1x10^3/uL (0.0-0.2) Test 06/14/16 08:00 06/14/16 10:57 Sodium Level 135mmol/L (136-145) Potassium Level 4.3mmol/L (3.5-5.1) Chloride Level 101mmol/L (98-107) Carbon Dioxide Level 27mmol/L (21-32) Anion Gap 7 (6-14) Blood Urea Nitrogen 24mg/dL (7-20) Creatinine 0.7mg/dL (0.6-1.0) Estimated GFR (Cockcroft-Gault) 80.1 Glucose Level 259mg/dL (70-99) Calcium Level 9.0mg/dL (8.5-10.1) Glucose (Fingerstick) 204mg/dL (70-99) Microbiology 06/10/16 Blood Culture - Preliminary, Resulted NO GROWTH AFTER 4 DAYS 06/08/16 Urine Culture - Final, Complete 06/08/16 Urine Culture Result 1 (ALEJO) - Final, Complete Medication Medications Current Medications Alteplase, Recombinant (Cathflo) 2 mg 1X ONCE INT CAT Last administered on 06/13 16:14; Start 06/13/16 at 15:00; Stop 06/13/16 at 15:01; Status DC Insulin Aspart (Novolog) 0-9 UNITS QIDACHS SQ Last administered on 06/14/16 08: 59; Start 06/13/16 at 21:00 Comment Review of Relevant I have reviewed the following items quincy (where applicable) has been applied. SOLIS WOLF MD Jun 14, 2016 14:29
[2016-06-14 15:00] VITALS: BP 184/65
--- NOTE | 2016-06-14 17:09 | EEG ---
DATE OF SERVICE: 06/12/2016 EEG NUMBER: [id number] OBJECTIVE: This is an 81-year-old female patient with history of mental status changes and confusion. EEG was requested to evaluate the cerebral activity. METHOD: Twenty electrodes were applied according to the international 10-20 electrode placement system. EKG monitoring, hyperventilation, intermittent photic stimulation, monopolar and bipolar montages are routinely utilized. The record was obtained on a digital system with video monitoring. FINDINGS: 1. Background: The patient was recorded in the awake, drowsy and sleep states. The overall background amplitude is 10-20 microvolts. A posterior dominant rhythm of 7 Hz is observed with superimposed mixture in theta and delta frequencies. 2. Abnormalities: No specific epileptiform discharge or electrographic seizure is seen. Slow activity in theta and delta frequencies showed about 50% of the time. 3. Activation: Hyperventilation was not performed because the patient was unable to follow the commands. Intermittent photic stimulation was performed with insignificant photic driving. IMPRESSION: This EEG is an abnormal study for the awake, drowsy, and sleep states. The posterior dominant rhythm of 7 Hz is slow for age. There is superimposed slowing in theta and delta frequencies. No focal, lateralizing, specific epileptiform discharge or electrographic seizure is seen. This pattern of EEG may suggest mild to moderate encephalopathy. SOLIS WOLF MD DR: KRISTINA/lyla JOB#: [id number] / [id number] ASHER
--- NOTE | 2016-06-14 17:16 | DS ---
DATE OF DISCHARGE: 06/09/2016 ADMISSION DIAGNOSIS: Fall with rib fracture. DISCHARGE DIAGNOSIS: Resolving rib fracture. HOSPITAL COURSE: The patient is a pleasant elderly female who fell and suffered a rib fracture. She was admitted. We did pain management, physical therapy, occupational therapy. She returned to baseline, we discharged home. DISPOSITION: Home. ACTIVITY: As tolerated. DIET: Low sodium. MEDICATIONS: Please see the MRAD. TOTAL TIME: 32 minutes. POLO BARTON DO DR: DARRIUS/lyla JOB#: [id number] / [id number]
[2016-06-14 19:00] VITALS: BP 129/61
[2016-06-14 20:11] LABS: HERPES SIMPLEX TYPE 1 Negative (Negative); HERPES SIMPLEX TYPE 2 Negative (Negative)
[2016-06-14] MEDS: ATORVASTATIN CALCIUM 20 MG TABLET PO SCH (20:30)
[2016-06-14 23:00] VITALS: BP 152/72
[2016-06-15 03:00] VITALS: BP 129/52
[2016-06-15] MEDS: PIPERACILLIN/TAZOBACTAM 3.375 GM in IV NORMAL SALINE 50ML 50 ML IV SCH ×3 (05:17→18:22)
[2016-06-15] MEDS: IV NORMAL SALINE 1000ML BAG 1,000 ML IV SCH (05:18)
[2016-06-15 05:39] LABS: BASO # 0.1 x10^3/uL (0.0-0.2); BASO % 1 % (0-3); EOS % 3 % (0-3); HEMATOCRIT 35.2 % (36.0-47.0); HEMOGLOBIN 11.8 g/dL (12.0-15.5); LYMPH # 2.2 x10^3/uL (1.0-4.8); LYMPH % 18 % (24-48); MEAN CORPUSCULAR HEMOGLOBIN 31 pg (25-35); MEAN CORPUSCULAR HGB CONC 33 g/dL (31-37); MEAN CORPUSCULAR VOLUME 91 fL (79-100); MONO % 9 % (0-9); NEUT % 70 % (31-73); PLATELET COUNT 242 x10^3/uL (140-400); RED BLOOD COUNT 3.86 x10^6/uL (3.50-5.40); RED CELL DISTRIBUTION WIDTH 13.3 % (11.5-14.5); WHITE BLOOD COUNT 12.1 x10^3/uL (4.0-11.0)
[2016-06-15 05:55] LABS: CALCIUM 8.9 mg/dL (8.5-10.1); CREATININE 0.8 mg/dL (0.6-1.0); GFR 68.7; POTASSIUM 4.6 mmol/L (3.5-5.1)
[2016-06-15] MEDS: ACYCLOVIR SODIUM 620 MG in IV DEXTROSE 5% 250 ML IV SCH ×3 (05:55→22:10)
[2016-06-15 07:00] VITALS: BP 118/58
[2016-06-15] MEDS: ASPIRIN 81 MG TAB.CHEW PO SCH (08:00)
[2016-06-15] MEDS: GLIPIZIDE ER 5 MG TAB.ER.24 PO SCH (08:00)
[2016-06-15] MEDS: FLUTICASONE 50MCG/NASAL SPRAY 16GM BOTTLE. NS SCH (08:13)
[2016-06-15] MEDS: OMEGA-3 FATTY ACIDS/FISH OIL 1,000 MG CAPSULE. PO SCH (08:14)
[2016-06-15] MEDS: DULOXETINE HCL 30 MG CAPSULE.DR. PO SCH (08:14)
[2016-06-15] MEDS: LISINOPRIL 5 MG TABLET. PO SCH (08:14)
[2016-06-15] MEDS: DOCUSATE SODIUM 100 MG CAPSULE PO SCH (08:14)
[2016-06-15] MEDS: PANTOPRAZOLE IV PUSH 40 MG VIAL. IVP SCH (08:14)
[2016-06-15] MEDS: CALCIUM CARB/VIT D3 500/200 TABLET PO SCH (08:14)
[2016-06-15] MEDS: LIDOCAINE (700MG/PATCH) PATCH. TD SCH (08:15)
[2016-06-15] MEDS: MULTIVITAMIN with MINERAL TABLET. PO SCH (08:15)
[2016-06-15] MEDS: INSULIN ASPART 300 UNITS/3 ML INSULN.PEN SQ SCH ×4 (08:20→21:00)
--- NOTE | 2016-06-15 08:24 | PDOC ---
Infectious Disease Note Subjective Subjective still lethargic but better ROS ROS no n/v/d/pain Vital Sign Vital Signs Vital Signs Date Time Temp Pulse Resp B/P Pulse Ox O2 Delivery O2 Flow Rate FiO2 06/15/16 07:09 98 Nasal Cannula 2.0 06/15/16 07:00 97.7 83 12 118/58 97.7 Physical Exam PHYSICAL EXAM GENERAL: NAD, Alert HEENT: PERRL, OC/OP NECK: Supple, no JVD, no LN LUNGS: Clear HEART: S1S2, no gallop, no murmur ABD: Soft, NT, no organomegaly, no rebound EXT: No edema, no cyanosis IT APPLICATION SUPPORT ANALYST: Alert, moves all ext SKIN: No rash IV: ok Labs Lab Laboratory Tests Test 06/14/16 10:57 06/14/16 16:08 06/14/16 20:33 06/15/16 05:20 Glucose (Fingerstick) 204mg/dL (70-99) 222mg/dL (70-99) 163mg/dL (70-99) White Blood Count 12.1x10^3/uL (4.0-11.0) Red Blood Count 3.86x10^6/uL (3.50-5.40) Hemoglobin 11.8g/dL (12.0-15.5) Hematocrit 35.2% (36.0-47.0) Mean Corpuscular Volume 91fL (79-100) Mean Corpuscular Hemoglobin 31pg (25-35) Mean Corpuscular Hemoglobin Concent 33g/dL (31-37) Red Cell Distribution Width 13.3% (11.5-14.5) Platelet Count 242x10^3/uL (140-400) Neutrophils (%) (Auto) 70% (31-73) Lymphocytes (%) (Auto) 18% (24-48) Monocytes (%) (Auto) 9% (0-9) Eosinophils (%) (Auto) 3% (0-3) Basophils (%) (Auto) 1% (0-3) Neutrophils # (Auto) 8.4x10^3uL (1.8-7.7) Lymphocytes # (Auto) 2.2x10^3/uL (1.0-4.8) Monocytes # (Auto) 1.1x10^3/uL (0.0-1.1) Eosinophils # (Auto) 0.3x10^3/uL (0.0-0.7) Basophils # (Auto) 0.1x10^3/uL (0.0-0.2) Sodium Level 135mmol/L (136-145) Potassium Level 4.6mmol/L (3.5-5.1) Chloride Level 101mmol/L (98-107) Carbon Dioxide Level 27mmol/L (21-32) Anion Gap 7 (6-14) Blood Urea Nitrogen 25mg/dL (7-20) Creatinine 0.8mg/dL (0.6-1.0) Estimated GFR (Cockcroft-Gault) 68.7 Glucose Level 203mg/dL (70-99) Calcium Level 8.9mg/dL (8.5-10.1) Test 06/15/16 07:11 Glucose (Fingerstick) 225mg/dL (70-99) Objective Assessment ? sepsis Leukocytosis Acute encephalopathy, etiology unclear Bloody diarrhea ANT Multiple rib fractures post mechanical fall DM Type II CAD h/o CVA Recent UTI on cipro Plan Plan of Care Zosyn Check stool c. 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
--- NOTE | 2016-06-15 09:08 | RAD ---
Portable chest, 06/15/2016: History: Pneumothorax Comparison is made to a study from 06/14/2016. A right PICC extends into the superior vena cava. The heart size and pulmonary vascularity are normal. The left chest is clear. There appears to be minimal streaky atelectasis or scarring in the right base. There is no evidence of pneumothorax or significant pleural fluid. Displaced right-sided rib fractures are again noted. IMPRESSION: 1. Residual mild right basilar atelectasis. 2. No evidence of pneumothorax.
[2016-06-15 11:00] VITALS: BP 138/58
--- NOTE | 2016-06-15 11:08 | PDOC ---
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 Right rib fxs number 6-9 2. Altered Mental Status 3. Leukocytosis 4. H/o GERD 5. 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 Scoliosis 8. HTN 9. Diabetes History of Present Illness History of Present Illness a little worse today less alert has poor recall from yesterday, recollection is poor less oriented today Vitals Vitals Vital Signs Date Time Temp Pulse Resp B/P Pulse Ox O2 Delivery O2 Flow Rate FiO2 06/15/16 07:09 98 Nasal Cannula 2.0 06/15/16 07:00 97.7 83 12 118/58 97.7 Physical Exam Physical Exam confused, General: Cooperative, No acute distress, Other (lethergic, does respond, but does nt follow commands well) Heart: Regular rate, Normal S1, Normal S2, No murmurs Lungs: Clear Abdomen: Soft, No masses, Other (Tender, w. some guarding) Extremities: No cyanosis, No edema Skin: No breakdown, No significant lesion Labs LABS Laboratory Tests Test 06/14/16 16:08 06/14/16 20:33 06/15/16 05:20 06/15/16 07:11 Glucose (Fingerstick) 222mg/dL (70-99) 163mg/dL (70-99) 225mg/dL (70-99) White Blood Count 12.1x10^3/uL (4.0-11.0) Red Blood Count 3.86x10^6/uL (3.50-5.40) Hemoglobin 11.8g/dL (12.0-15.5) Hematocrit 35.2% (36.0-47.0) Mean Corpuscular Volume 91fL (79-100) Mean Corpuscular Hemoglobin 31pg (25-35) Mean Corpuscular Hemoglobin Concent 33g/dL (31-37) Red Cell Distribution Width 13.3% (11.5-14.5) Platelet Count 242x10^3/uL (140-400) Neutrophils (%) (Auto) 70% (31-73) Lymphocytes (%) (Auto) 18% (24-48) Monocytes (%) (Auto) 9% (0-9) Eosinophils (%) (Auto) 3% (0-3) Basophils (%) (Auto) 1% (0-3) Neutrophils # (Auto) 8.4x10^3uL (1.8-7.7) Lymphocytes # (Auto) 2.2x10^3/uL (1.0-4.8) Monocytes # (Auto) 1.1x10^3/uL (0.0-1.1) Eosinophils # (Auto) 0.3x10^3/uL (0.0-0.7) Basophils # (Auto) 0.1x10^3/uL (0.0-0.2) Sodium Level 135mmol/L (136-145) Potassium Level 4.6mmol/L (3.5-5.1) Chloride Level 101mmol/L (98-107) Carbon Dioxide Level 27mmol/L (21-32) Anion Gap 7 (6-14) Blood Urea Nitrogen 25mg/dL (7-20) Creatinine 0.8mg/dL (0.6-1.0) Estimated GFR (Cockcroft-Gault) 68.7 Glucose Level 203mg/dL (70-99) Calcium Level 8.9mg/dL (8.5-10.1) Assessment and Plan Assessmemt and Plan change PPN to TPN too lethargic for swallow study IV anti viral started cont current and supportive care Problems Medical Problems: (1) Fall Status: Acute (2) Fall (on) (from) other stairs and steps, initial encounter Status: Acute (3) Ribs, multiple fractures Status: Acute Problems: Comment Review of Relevant I have reviewed the following items quincy (where applicable) has been applied. Labs Laboratory Tests Test 06/13/16 11:54 06/13/16 16:18 06/13/16 20:48 06/14/16 06:10 Glucose (Fingerstick) 244mg/dL (70-99) 236mg/dL (70-99) 228mg/dL (70-99) White Blood Count 11.7x10^3/uL (4.0-11.0) Red Blood Count 3.54x10^6/uL (3.50-5.40) Hemoglobin 10.7g/dL (12.0-15.5) Hematocrit 33.8% (36.0-47.0) Mean Corpuscular Volume 95fL (79-100) Mean Corpuscular Hemoglobin 30pg (25-35) Mean Corpuscular Hemoglobin Concent 32g/dL (31-37) Red Cell Distribution Width 13.1% (11.5-14.5) Platelet Count 206x10^3/uL (140-400) Neutrophils (%) (Auto) 72% (31-73) Lymphocytes (%) (Auto) 16% (24-48) Monocytes (%) (Auto) 9% (0-9) Eosinophils (%) (Auto) 3% (0-3) Basophils (%) (Auto) 1% (0-3) Neutrophils # (Auto) 8.4x10^3uL (1.8-7.7) Lymphocytes # (Auto) 1.8x10^3/uL (1.0-4.8) Monocytes # (Auto) 1.1x10^3/uL (0.0-1.1) Eosinophils # (Auto) 0.4x10^3/uL (0.0-0.7) Basophils # (Auto) 0.1x10^3/uL (0.0-0.2) Test 06/14/16 07:08 06/14/16 08:00 06/14/16 10:57 06/14/16 16:08 Glucose (Fingerstick) 238mg/dL (70-99) 204mg/dL (70-99) 222mg/dL (70-99) Sodium Level 135mmol/L (136-145) Potassium Level 4.3mmol/L (3.5-5.1) Chloride Level 101mmol/L (98-107) Carbon Dioxide Level 27mmol/L (21-32) Anion Gap 7 (6-14) Blood Urea Nitrogen 24mg/dL (7-20) Creatinine 0.7mg/dL (0.6-1.0) Estimated GFR (Cockcroft-Gault) 80.1 Glucose Level 259mg/dL (70-99) Calcium Level 9.0mg/dL (8.5-10.1) Test 06/14/16 20:33 06/15/16 05:20 06/15/16 07:11 Glucose (Fingerstick) 163mg/dL (70-99) 225mg/dL (70-99) White Blood Count 12.1x10^3/uL (4.0-11.0) Red Blood Count 3.86x10^6/uL (3.50-5.40) Hemoglobin 11.8g/dL (12.0-15.5) Hematocrit 35.2% (36.0-47.0) Mean Corpuscular Volume 91fL (79-100) Mean Corpuscular Hemoglobin 31pg (25-35) Mean Corpuscular Hemoglobin Concent 33g/dL (31-37) Red Cell Distribution Width 13.3% (11.5-14.5) Platelet Count 242x10^3/uL (140-400) Neutrophils (%) (Auto) 70% (31-73) Lymphocytes (%) (Auto) 18% (24-48) Monocytes (%) (Auto) 9% (0-9) Eosinophils (%) (Auto) 3% (0-3) Basophils (%) (Auto) 1% (0-3) Neutrophils # (Auto) 8.4x10^3uL (1.8-7.7) Lymphocytes # (Auto) 2.2x10^3/uL (1.0-4.8) Monocytes # (Auto) 1.1x10^3/uL (0.0-1.1) Eosinophils # (Auto) 0.3x10^3/uL (0.0-0.7) Basophils # (Auto) 0.1x10^3/uL (0.0-0.2) Sodium Level 135mmol/L (136-145) Potassium Level 4.6mmol/L (3.5-5.1) Chloride Level 101mmol/L (98-107) Carbon Dioxide Level 27mmol/L (21-32) Anion Gap 7 (6-14) Blood Urea Nitrogen 25mg/dL (7-20) Creatinine 0.8mg/dL (0.6-1.0) Estimated GFR (Cockcroft-Gault) 68.7 Glucose Level 203mg/dL (70-99) Calcium Level 8.9mg/dL (8.5-10.1) Laboratory Tests Test 06/14/16 16:08 06/14/16 20:33 06/15/16 05:20 06/15/16 07:11 Glucose (Fingerstick) 222mg/dL (70-99) 163mg/dL (70-99) 225mg/dL (70-99) White Blood Count 12.1x10^3/uL (4.0-11.0) Red Blood Count 3.86x10^6/uL (3.50-5.40) Hemoglobin 11.8g/dL (12.0-15.5) Hematocrit 35.2% (36.0-47.0) Mean Corpuscular Volume 91fL (79-100) Mean Corpuscular Hemoglobin 31pg (25-35) Mean Corpuscular Hemoglobin Concent 33g/dL (31-37) Red Cell Distribution Width 13.3% (11.5-14.5) Platelet Count 242x10^3/uL (140-400) Neutrophils (%) (Auto) 70% (31-73) Lymphocytes (%) (Auto) 18% (24-48) Monocytes (%) (Auto) 9% (0-9) Eosinophils (%) (Auto) 3% (0-3) Basophils (%) (Auto) 1% (0-3) Neutrophils # (Auto) 8.4x10^3uL (1.8-7.7) Lymphocytes # (Auto) 2.2x10^3/uL (1.0-4.8) Monocytes # (Auto) 1.1x10^3/uL (0.0-1.1) Eosinophils # (Auto) 0.3x10^3/uL (0.0-0.7) Basophils # (Auto) 0.1x10^3/uL (0.0-0.2) Sodium Level 135mmol/L (136-145) Potassium Level 4.6mmol/L (3.5-5.1) Chloride Level 101mmol/L (98-107) Carbon Dioxide Level 27mmol/L (21-32) Anion Gap 7 (6-14) Blood Urea Nitrogen 25mg/dL (7-20) Creatinine 0.8mg/dL (0.6-1.0) Estimated GFR (Cockcroft-Gault) 68.7 Glucose Level 203mg/dL (70-99) Calcium Level 8.9mg/dL (8.5-10.1) Microbiology 06/10/16 Blood Culture - Preliminary, Resulted NO GROWTH AFTER 4 DAYS 06/11/16 Gram Stain - Final, Complete 06/08/16 Urine Culture - Final, Complete 06/08/16 Urine Culture Result 1 (ALEJO) - Final, Complete Medications Current Medications Lidocaine (Lidoderm) 1 patch 1X ONCE TD Last administered on 06/08/16 09:12; Start 06/08/16 at 09:00; Stop 06/08/16 at 09:01; Status DC Acetaminophen (Tylenol) 1,000 mg 1X ONCE PO Last administered on 06/08/16 09: 12; Start 06/08/16 at 09:00; Stop 06/08/16 at 09:01; Status DC Oxycodone/ Acetaminophen (Percocet 5/325) 1 tab 1X ONCE PO Last administered on 06/08/16 10:00; Start 06/08/16 at 10:00; Stop 06/08/16 at 10:01; Status DC Ondansetron HCl (Zofran) 4 mg PRN Q6HRS PRN IV NAUSEA/VOMITING; Start 06/08/16 at 12:00; Stop 06/12/16 at 09:19; Status DC Al Hydrox/Mg Hydrox/Simethicone (Mylanta Plus Xs) 30 ml PRN Q3HRS PRN PO HEARTBURN / GAS; Start 06/08/16 at 12:00; Stop 06/12/16 at 09:19; Status DC Calcium Carbonate/ Glycine (Tums) 500 mg PRN Q3HRS PRN PO UPSET STOMACH; Start 06/08/16 at 12:00; Stop 06/12/16 at 09:19; Status DC Oxycodone HCl (Roxicodone) 5 mg PRN Q3HRS PRN PO BREAKTHROUGH PAIN; Start at 12:00; Stop 06/12/16 at 09:19; Status DC Morphine Sulfate 1 mg PRN Q2HR PRN IV PAIN; Start 06/08/16 at 12:00; Stop at 09:19; Status DC Oxycodone/ Acetaminophen (Percocet 5/325) 1 tab PRN Q4HRS PRN PO MILD PAIN, 1ST CHOICE Last administered on 06/09/16 15:03; Start 06/08/16 at 12:00; Stop 06/12/16 at 09:19; Status DC Docusate Sodium (Colace) 100 mg BID PO ; Start 06/08/16 at 21:00; Status Cancel Magnesium Hydroxide (Milk Of Magnesia) 2,400 mg PRN Q12HR PRN PO CONSTIPATION; Start 06/08/16 at 12:00; Stop 06/12/16 at 09:19; Status DC Lactulose 20 gm PRN Q12HR PRN PO CONSTIPATION; Start 06/08/16 at 12:00; Stop 06/12/16 at 09:19; Status DC Bisacodyl (Dulcolax Supp) 10 mg PRN DAILY PRN [place] CONSTIPATION; Start 06/08/16 at 12:00; Stop 06/12/16 at 09:19; Status DC Enoxaparin Sodium (Lovenox 40mg Syringe) 40 mg DAILY16 SQ Last administered on 06/09/16 15:03; Start 06/08/16 at 16:00; Stop 06/10/16 at 12:52; Status DC Lidocaine (Lidoderm) 1 patch DAILY TD Last administered on 06/09/16 07:41; Start 06/08/16 at 13:00 Aspirin (Children'S Aspirin) 81 mg DAILYWBKFT PO Last administered on 06/09/16 07:41; Start 06/08/16 at 13:00 Docusate Sodium (Colace) 100 mg DAILY PO Last administered on 06/09/16 09:00; Start 06/09/16 at 09:00 Fluticasone Propionate (Flonase) 2 spray DAILY NS Last administered on 08:13; Start 06/08/16 at 13:00 Glipizide (Glucotrol Er) 10 mg DAILY08 PO Last administered on 06/09/16 07:38; Start 06/08/16 at 13:00 Lisinopril (Prinivil) 5 mg DAILY PO Last administered on 06/09/16 07:39; Start 06/08/16 at 13:00 Calcium/Vitamin D (Oscal D 500mg/ 200uts) 1 tab DAILY PO Last administered on 07:39; Start 06/08/16 at 13:00 Fish Oil (Fish Oil) 1,000 mg DAILY PO Last administered on 06/09/16 07:38; Start 06/08/16 at 13:00 Duloxetine HCl (Cymbalta) 60 mg DAILY PO Last administered on 06/09/16 07:40; Start 06/08/16 at 13:00 Famotidine (Pepcid) 40 mg DAILY PO Last administered on 06/09/16 07:40; Start 06/08/16 at 13:00; Stop 06/10/16 at 11:55; Status DC Multivitamins/ Calcium (Thera M Plus) 1 tab DAILY PO Last administered on 07:39; Start 06/08/16 at 13:00 Atorvastatin Calcium (Lipitor) 20 mg QHS PO Last administered on 06/08/16 20:56 ; Start 06/08/16 at 21:00 Insulin Aspart (Novolog) 0-9 UNITS TIDWMEALS SQ Last administered on 06/13/16 17:49; Start 06/08/16 at 12:30; Stop 06/13/16 at 20:54; Status DC Dextrose 12.5 gm PRN Q15MIN PRN IV SEE COMMENTS; Start 06/08/16 at 12:15 Ondansetron HCl 4 mg 4 mg PRN Q8HRS PRN IV NAUSEA/VOMITING; Start 06/08/16 at 12 :45; Stop 06/09/16 at 12:44; Status DC Piperacillin Sod/ Tazobactam Sod/ Sodium Chloride (Zosyn/Iv Sodium Chloride 0.9 % 50ml) 50 ml @ 100 mls/hr Q6HRS IV Last administered on 06/15/16 05:17; Start 06/10/16 at 12:00 Pantoprazole Sodium 40 mg 40 mg DAILYAC IVP Last administered on 06/15/16 08: 14; Start 06/10/16 at 11:00 Amino Acids/ Electrolytes/ Dextrose 1,000 ml @ 75 mls/hr [id number] PRN IV . Last administered on 06/14/16 20:34; Start 06/10/16 at 11:00; Stop 06/15/16 at 21:59 Sodium Chloride (Iv Sodium Chloride 0.9% 1000ml Bag) 1,000 ml @ 50 mls/hr Q20H IV Last administered on 06/15/16 05:18; Start 06/10/16 at 11:00 Naloxone HCl (Narcan) 0.4 mg PRN Q2MIN PRN IV SEE COMMENTS; Start 06/10/16 at 11 :30 Naloxone HCl 0.4 mg 0.4 mg 1X ONCE IV Last administered on 06/10/16 12:07; Start 06/10/16 at 12:00; Stop 06/10/16 at 12:01; Status DC Daptomycin 500 mg/ Sodium Chloride 50 ml @ 100 mls/hr Q24H IV Last administered on 06/10/16 14:56; Start 06/10/16 at 14:00; Stop 06/10/16 at 18:00; Status DC Metronidazole (FLAGYL 500Mmg PREMIX) 100 ml @ 100 mls/hr Q8H IV Last administered on 06/12/16 08:08; Start 06/10/16 at 16:00; Stop 06/12/16 at 09:07; Status DC Lorazepam (Ativan) 1 mg PRN Q4HRS PRN IV ANXIETY / AGITATION Last administered on 06/10/16 17:28; Start 06/10/16 at 17:00; Stop 06/12/16 at 09:19; Status DC Flumazenil 0.1 mg 0.1 mg 1X ONCE IV Last administered on 06/11/16 15:15; Start 06/11/16 at 14:30; Stop 06/11/16 at 14:33; Status DC Acyclovir Sodium/ Dextrose (Zovirax) 262.4 ml @ 262.4 mls/ hr Q8HRS IV Last administered on 06/15/16 05:55; Start 06/13/16 at 09:00 Alteplase, Recombinant (Cathflo) 2 mg 1X ONCE INT CAT Last administered on 06/13 16:14; Start 06/13/16 at 15:00; Stop 06/13/16 at 15:01; Status DC Insulin Aspart (Novolog) 0-9 UNITS QIDACHS SQ Last administered on 06/15/16 08 :20; Start 06/13/16 at 21:00 Info 1 each 1 each PRN DAILY PRN MC SEE COMMENTS; Start 06/15/16 at 11:00 Sodium Chloride/ Potassium Chloride/ Potassium Phosphate/ Magnesium Sulfate/ Calcium Gluconate/ Multivitamins/ Chromium/Copper/ Manganese/Seleni/ Zn/Total Parenteral Nutrition/Amino Acids/Dextrose/ Fat Emulsion Intravenous (Sodium Chloride/ Potassium Phospha... 1,512 ml @ 63 mls/hr TPN CONT IV ; Start at 22:00; Stop 06/16/16 at 21:59 Active Scripts Active Ciprofloxacin 250 Mg/5 Ml Christina.mc.rec 250 Mg PO BID Children's Aspirin (Aspirin) 81 Mg Tab.chew 81 Mg PO DAILYWBKFT 30 Days Glipizide Er (Glipizide) 5 Mg Tab.er.24 10 Mg PO DAILY Reported Pravachol (Pravastatin Sodium) 80 Mg Tablet 80 Mg PO DAILY Multi-Vitamin Daily (Multivitamin) 1 Each Tablet 1 Each PO DAILY Lisinopril 5 Mg Tablet 5 Mg PO DAILY Flonase (Fluticasone Propionate) 16 Gm Florence.susp 2 [place] NS DAILY Famotidine 40 Mg Tablet 40 Mg PO DAILY Cymbalta (Duloxetine Hcl) 60 Mg Capsule.dr 60 Mg PO DAILY Docusate Sodium 100 Mg Capsule 100 Mg PO DAILY Fish Oil Concentrate Softgel (Docosahexanoic Acid/Epa) 1 Each Capsule 1 Each PO DAILY Caltrate 600 + D Tablet (Calcium Carbonate/Vitamin D3) 1 Each Tablet 1 Each PO DAILY Vitals/I & O Vital Sign - Last 24 Hours 06/14/16 06/14/16 06/14/16 06/14/16 15:00 19:00 20:00 22:41 Temp 98.6 98.6 98.6 98.6 Pulse 82 63 Resp 16 16 B/P 184/65 129/61 Pulse Ox 2 90 96 O2 Delivery Nasal Cannula Nasal Cannula Nasal Cannula BiPAP/CPAP O2 Flow Rate 2.0 2.0 06/14/16 06/15/16 06/15/16 06/15/16 23:00 01:26 03:00 03:30 Temp 97.6 97.6 97.6 97.6 Pulse 74 63 Resp 18 18 B/P 152/72 129/52 Pulse Ox 96 97 O2 Delivery Nasal Cannula BiPAP/CPAP Nasal Cannula BiPAP/CPAP O2 Flow Rate 2.0 2.0 06/15/16 06/15/16 06/15/16 06/15/16 05:30 07:00 07:05 07:09 Temp 97.7 97.7 Pulse 83 Resp 12 B/P 118/58 Pulse Ox 98 98 O2 Delivery BiPAP/CPAP Nasal Cannula Nasal Cannula Nasal Cannula O2 Flow Rate 2.0 2.0 2.0 Intake and Output 06/14/16 06/14/16 06/15/16 15:00 23:00 07:00 Intake Total 262.4 ml 503 ml Output Total 900 ml Balance 262.4 ml -397 ml TAI CELESTE MD Jun 15, 2016 11:08
[2016-06-15 11:11] LABS: MAGNESIUM 1.9 mg/dL (1.8-2.4); PHOSPHORUS 3.4 mg/dL (2.6-4.7)
[2016-06-15] MEDS: TPN PER PHARMACY MC PRN (11:30)
--- NOTE | 2016-06-15 11:57 | PDOC ---
Objective: Objective: Per RN - red blood in stool overnight, brown this morning. Vital Signs: Vital Signs Date Time Temp Pulse Resp B/P Pulse Ox O2 Delivery O2 Flow Rate FiO2 06/15/16 07:09 98 Nasal Cannula 2.0 06/15/16 07:00 97.7 83 12 118/58 97.7 Labs: Laboratory Tests Test 06/14/16 16:08 06/14/16 20:33 06/15/16 07:11 06/15/16 11:07 Glucose (Fingerstick) 222mg/dL (70-99) 163mg/dL (70-99) 225mg/dL (70-99) 179mg/dL (70-99) PE: GEN: NAD LUNGS:nasal cannula HEART: RRR ABD: BS+, grimaces w/ palpation of LLQ NEURO/PSYCH: briefly opens eyes A/P: Rectal bleeding, possible ischemic colitis -Hgb stable Encephalopathy -- No new GI recs. Plans for PC consult, TPN. OVI LAKHANI Jun 15, 2016 11:57
[2016-06-15 15:00] VITALS: BP 128/50
--- NOTE | 2016-06-15 15:31 | PDOC ---
PROGRESS NOTES Assessment Assessment Metabolic encephalopathy. Lethargy. Falls, right chest 6th to 9th rib fractures. Leukocytosis. Renal failure. Hyperkalemia. Hyperglycemia. UTI CAD DM HTN HLD Obesity No evidence of acute CVA this time. RECOMMENDATIONS/PLAN: Treat medical and surgical problems. Ovoid Narcotics as possible. 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 Discussed in detail with her family at bedside before. CSF on 06/11: WBC 3, RBC 26, Glucose 122, protein 63.3. Brain MRI w/o contrast performed showed no evidence of CVA this time. Contrast not given due to renal failure. EEG on 06/14: Posterior dominant rhythm is mildly slow for age. HISTORY OF THE PRESENT ILLNESS: 81-y-old female patient with above medical diseases had a mechanical fall on her right side of chest. She was brought to the ER of [facility] and was found to have right 6th to 9th rib fractures. She has been lethargic, decreased response, difficult talking, so Neurology was called for consultation. Patient was not able to provide history during neurology consult due to her mental statu changes. She gained consciousness and significantly improved in mentation on 06/13, but sleepiness afterwords. PAST MEDICAL HISTORY: Please see above. PAST SURGERY HISTORY: Cardiac stent placement. Left mastectomy Hysterectomy ALLERGY: Reviewed. MEDICATIONS: Refer to [facility] FAMILY HISTORY: Non contributory. SOCIAL HISTORY: Lives at home. Denies smoking, drinking, and illicit drug use. REVIEW OF SYSTEMS: Constitutional: No malnutrition, weight loss, cachexia. Head: No traumatic brain or head injury. Skin: No edema, or rash. Ear: No infection, tinnitus. Eyes: No vision loss or color blindness. Nose: No bleeding or purulent discharges. Hearing: Mild hearing decrease. Neck: No injury. Breast: Left mastectomy. Cardiac: CAD, stent placement, HTN, HLD. Pulmonary: No COPD. GI: No GI ulcer, GI bleeding. Urinary/genital: UTI. Endocrinologic: Diabetes Mellitus, obesity. Skeletomuscular: No muscular atrophy, deformity. Neurological: see HP. Psychiatric: Denies drug use/abuse. Otherwise, not [id number] review of systems. PHYSICAL EXAMINATION: General appearance is in subacute distress. HEENT: Normocephalic and nontraumatic. Eyes, nose, ears, and throat are unremarkable. Neck is supple. No lymphadenopathy. No crepitus. Cardiovascular: S1, S2, regular rate and rhythm. Pulmonary: Clear to auscultation bilaterally. Abdomen: Bowel sounds are positive. Extremities: No rash, lesions, or edema. No restriction of range of motion NEUROLOGICAL EXAMINATION: Sleepiness, but arousable. Not oriented to time, but knows place and person. PERRL. EOMI. CN: no acute focal findings. Muscle tone: within normal. Muscle strength: 4+ DTR: 1-2 Plantar reflex: Neutral response bilaterally Gait: not examined in bed. Sensory exam: withdrew to stimuli. No cerebellar signs elicited. F-T-N test fine. Objective Objective Vital Signs Date Time Temp Pulse Resp B/P Pulse Ox O2 Delivery O2 Flow Rate FiO2 06/15/16 11:00 97.6 75 12 138/58 97 Nasal Cannula 2.0 97.6 Intake and Output 06/15/16 07:00 Intake Total 765.4 ml Output Total 900 ml Balance -134.6 ml IV Total 765.4 ml Output Urine Total 900 ml # Voids 4 Vitals Signs Vitals VS - Last 72 Hours, by Label Date Time Temp Pulse Resp B/P Pulse Ox O2 Delivery O2 Flow Rate FiO2 06/15/16 11:00 97.6 75 12 138/58 97 Nasal Cannula 2.0 97.6 06/15/16 07:09 98 Nasal Cannula 2.0 06/15/16 07:05 Nasal Cannula 2.0 06/15/16 07:00 97.7 83 12 118/58 98 Nasal Cannula 2.0 97.7 06/15/16 05:30 BiPAP/CPAP 06/15/16 03:30 BiPAP/CPAP 06/15/16 03:00 97.6 63 18 129/52 97 Nasal Cannula 2.0 97.6 06/15/16 01:26 BiPAP/CPAP 06/14/16 23:00 97.6 74 18 152/72 96 Nasal Cannula 2.0 97.6 06/14/16 22:41 96 BiPAP/CPAP 06/14/16 20:00 Nasal Cannula 2.0 06/14/16 19:00 98.6 63 16 129/61 90 Nasal Cannula 2.0 98.6 06/14/16 15:00 98.6 82 16 184/65 2 Nasal Cannula 98.6 06/14/16 11:00 97.8 67 12 158/86 98 Nasal Cannula 2.0 97.8 06/14/16 08:00 Nasal Cannula 2.0 06/14/16 07:00 97.6 74 162/66 96 Nasal Cannula 2.0 97.6 Laboratory Laboratory Laboratory Tests Test 06/14/16 16:08 06/14/16 20:33 06/15/16 05:20 06/15/16 07:11 Glucose (Fingerstick) 222mg/dL (70-99) 163mg/dL (70-99) 225mg/dL (70-99) White Blood Count 12.1x10^3/uL (4.0-11.0) Red Blood Count 3.86x10^6/uL (3.50-5.40) Hemoglobin 11.8g/dL (12.0-15.5) Hematocrit 35.2% (36.0-47.0) Mean Corpuscular Volume 91fL (79-100) Mean Corpuscular Hemoglobin 31pg (25-35) Mean Corpuscular Hemoglobin Concent 33g/dL (31-37) Red Cell Distribution Width 13.3% (11.5-14.5) Platelet Count 242x10^3/uL (140-400) Neutrophils (%) (Auto) 70% (31-73) Lymphocytes (%) (Auto) 18% (24-48) Monocytes (%) (Auto) 9% (0-9) Eosinophils (%) (Auto) 3% (0-3) Basophils (%) (Auto) 1% (0-3) Neutrophils # (Auto) 8.4x10^3uL (1.8-7.7) Lymphocytes # (Auto) 2.2x10^3/uL (1.0-4.8) Monocytes # (Auto) 1.1x10^3/uL (0.0-1.1) Eosinophils # (Auto) 0.3x10^3/uL (0.0-0.7) Basophils # (Auto) 0.1x10^3/uL (0.0-0.2) Sodium Level 135mmol/L (136-145) Potassium Level 4.6mmol/L (3.5-5.1) Chloride Level 101mmol/L (98-107) Carbon Dioxide Level 27mmol/L (21-32) Anion Gap 7 (6-14) Blood Urea Nitrogen 25mg/dL (7-20) Creatinine 0.8mg/dL (0.6-1.0) Estimated GFR (Cockcroft-Gault) 68.7 Glucose Level 203mg/dL (70-99) Calcium Level 8.9mg/dL (8.5-10.1) Phosphorus Level 3.4mg/dL (2.6-4.7) Magnesium Level 1.9mg/dL (1.8-2.4) Test 06/15/16 11:07 Glucose (Fingerstick) 179mg/dL (70-99) Microbiology 06/10/16 Blood Culture - Final, Complete NO GROWTH AFTER 5 DAYS 06/11/16 Gram Stain - Final, Complete 06/08/16 Urine Culture - Final, Complete 06/08/16 Urine Culture Result 1 (ALEJO) - Final, Complete Medication Medications Current Medications Info 1 each 1 each PRN DAILY PRN MC SEE COMMENTS Last administered on t 11:30; Start 06/15/16 at 11:00 Sodium Chloride/ Potassium Chloride/ Potassium Phosphate/ Magnesium Sulfate/ Calcium Gluconate/ Multivitamins/ Chromium/Copper/ Manganese/Seleni/ Zn/Total Parenteral Nutrition/Amino Acids/Dextrose/ Fat Emulsion Intravenous (Sodium Chloride/ Potassium Phospha... 1,512 ml @ 63 mls/hr TPN CONT IV ; Start at 22:00; Stop 06/16/16 at 21:59 Comment Review of Relevant I have reviewed the following items quincy (where applicable) has been applied. SOLIS WOLF MD Jun 15, 2016 15:31
[2016-06-15 19:00] VITALS: BP 129/49
[2016-06-15] MEDS: ATORVASTATIN CALCIUM 20 MG TABLET PO SCH (21:00)
[2016-06-15] MEDS ORDERED: TOTAL PARENTERAL NUTRITION 1,424.9987 ML, AMINO ACIDS 10 % 60 GM, DEXTROSE 70 % IN WATE... IV SCH ×10 (22:00)
[2016-06-15 23:00] VITALS: BP 137/57
[2016-06-16] MEDS: PIPERACILLIN/TAZOBACTAM 3.375 GM in IV NORMAL SALINE 50ML 50 ML IV SCH ×4 (00:28→17:21)
[2016-06-16 03:00] VITALS: BP 170/45
[2016-06-16] MEDS: ACYCLOVIR SODIUM 620 MG in IV DEXTROSE 5% 250 ML IV SCH ×3 (05:46→22:09)
[2016-06-16 06:21] LABS: BASO # 0.1 x10^3/uL (0.0-0.2); BASO % 1 % (0-3); EOS % 4 % (0-3); HEMATOCRIT 37.3 % (36.0-47.0); HEMOGLOBIN 12.4 g/dL (12.0-15.5); LYMPH % 20 % (24-48); MEAN CORPUSCULAR HEMOGLOBIN 30 pg (25-35); MEAN CORPUSCULAR HGB CONC 33 g/dL (31-37); MEAN CORPUSCULAR VOLUME 91 fL (79-100); MONO % 10 % (0-9); NEUT % 66 % (31-73); PLATELET COUNT 280 x10^3/uL (140-400); RED BLOOD COUNT 4.08 x10^6/uL (3.50-5.40); WHITE BLOOD COUNT 9.9 x10^3/uL (4.0-11.0)
[2016-06-16 06:28] LABS: CALCIUM 8.9 mg/dL (8.5-10.1); CREATININE 0.7 mg/dL (0.6-1.0); GFR 80.1; POTASSIUM 4.5 mmol/L (3.5-5.1)
[2016-06-16 06:36] LABS: MAGNESIUM 2.1 mg/dL (1.8-2.4); PHOSPHORUS 2.9 mg/dL (2.6-4.7)
[2016-06-16 07:00] VITALS: BP 136/58
[2016-06-16] MEDS: ASPIRIN 81 MG TAB.CHEW PO SCH (08:00)
[2016-06-16] MEDS: GLIPIZIDE ER 5 MG TAB.ER.24 PO SCH (08:00)
[2016-06-16] MEDS: DULOXETINE HCL 30 MG CAPSULE.DR. PO SCH (08:02)
[2016-06-16] MEDS: DOCUSATE SODIUM 100 MG CAPSULE PO SCH (08:02)
[2016-06-16] MEDS: CALCIUM CARB/VIT D3 500/200 TABLET PO SCH (08:07)
[2016-06-16] MEDS: OMEGA-3 FATTY ACIDS/FISH OIL 1,000 MG CAPSULE. PO SCH (08:07)
[2016-06-16] MEDS: LIDOCAINE (700MG/PATCH) PATCH. TD SCH (08:08)
[2016-06-16] MEDS: LISINOPRIL 5 MG TABLET. PO SCH (08:08)
[2016-06-16] MEDS: MULTIVITAMIN with MINERAL TABLET. PO SCH (08:08)
[2016-06-16] MEDS: FLUTICASONE 50MCG/NASAL SPRAY 16GM BOTTLE. NS SCH (09:03)
[2016-06-16] MEDS: IV NORMAL SALINE 1000ML BAG 1,000 ML IV SCH ×2 (09:04→19:05)
[2016-06-16] MEDS: PANTOPRAZOLE IV PUSH 40 MG VIAL. IVP SCH (09:04)
[2016-06-16] MEDS: INSULIN ASPART 300 UNITS/3 ML INSULN.PEN SQ SCH ×4 (09:07→22:18)
[2016-06-16 10:54] VITALS: BP 153/54
[2016-06-16] MEDS ORDERED: SALIVA STIMULANT AGENT 44ML SPRAY BOTTLE. PO PRN (11:15)
[2016-06-16] MEDS: TPN PER PHARMACY MC PRN (11:45)
--- NOTE | 2016-06-16 12:07 | PDOC ---
PULMONARY PROGRESS NOTES Subjective awake no soa Vitals Vital Signs Date Time Temp Pulse Resp B/P Pulse Ox O2 Delivery O2 Flow Rate FiO2 06/16/16 10:54 97.7 63 18 153/54 97 Nasal Cannula 2.0 97.7 General: Alert, No acute distress HEENT: Other Lungs: Clear Cardiovascular: S1, S2 Abdomen: Soft Neuro Exam: Alert Extremities: No Edema Skin: Warm Labs Laboratory Tests Test 06/14/16 16:08 06/14/16 20:33 06/15/16 05:20 06/15/16 07:11 Glucose (Fingerstick) 222mg/dL (70-99) 163mg/dL (70-99) 225mg/dL (70-99) White Blood Count 12.1x10^3/uL (4.0-11.0) Red Blood Count 3.86x10^6/uL (3.50-5.40) Hemoglobin 11.8g/dL (12.0-15.5) Hematocrit 35.2% (36.0-47.0) Mean Corpuscular Volume 91fL (79-100) Mean Corpuscular Hemoglobin 31pg (25-35) Mean Corpuscular Hemoglobin Concent 33g/dL (31-37) Red Cell Distribution Width 13.3% (11.5-14.5) Platelet Count 242x10^3/uL (140-400) Neutrophils (%) (Auto) 70% (31-73) Lymphocytes (%) (Auto) 18% (24-48) Monocytes (%) (Auto) 9% (0-9) Eosinophils (%) (Auto) 3% (0-3) Basophils (%) (Auto) 1% (0-3) Neutrophils # (Auto) 8.4x10^3uL (1.8-7.7) Lymphocytes # (Auto) 2.2x10^3/uL (1.0-4.8) Monocytes # (Auto) 1.1x10^3/uL (0.0-1.1) Eosinophils # (Auto) 0.3x10^3/uL (0.0-0.7) Basophils # (Auto) 0.1x10^3/uL (0.0-0.2) Sodium Level 135mmol/L (136-145) Potassium Level 4.6mmol/L (3.5-5.1) Chloride Level 101mmol/L (98-107) Carbon Dioxide Level 27mmol/L (21-32) Anion Gap 7 (6-14) Blood Urea Nitrogen 25mg/dL (7-20) Creatinine 0.8mg/dL (0.6-1.0) Estimated GFR (Cockcroft-Gault) 68.7 Glucose Level 203mg/dL (70-99) Calcium Level 8.9mg/dL (8.5-10.1) Phosphorus Level 3.4mg/dL (2.6-4.7) Magnesium Level 1.9mg/dL (1.8-2.4) Test 06/15/16 11:07 06/15/16 16:24 06/15/16 20:33 06/16/16 04:40 Glucose (Fingerstick) 179mg/dL (70-99) 198mg/dL (70-99) 160mg/dL (70-99) White Blood Count 9.9x10^3/uL (4.0-11.0) Red Blood Count 4.08x10^6/uL (3.50-5.40) Hemoglobin 12.4g/dL (12.0-15.5) Hematocrit 37.3% (36.0-47.0) Mean Corpuscular Volume 91fL (79-100) Mean Corpuscular Hemoglobin 30pg (25-35) Mean Corpuscular Hemoglobin Concent 33g/dL (31-37) Red Cell Distribution Width 13.0% (11.5-14.5) Platelet Count 280x10^3/uL (140-400) Neutrophils (%) (Auto) 66% (31-73) Lymphocytes (%) (Auto) 20% (24-48) Monocytes (%) (Auto) 10% (0-9) Eosinophils (%) (Auto) 4% (0-3) Basophils (%) (Auto) 1% (0-3) Neutrophils # (Auto) 6.5x10^3uL (1.8-7.7) Lymphocytes # (Auto) 2.0x10^3/uL (1.0-4.8) Monocytes # (Auto) 1.0x10^3/uL (0.0-1.1) Eosinophils # (Auto) 0.4x10^3/uL (0.0-0.7) Basophils # (Auto) 0.1x10^3/uL (0.0-0.2) Sodium Level 136mmol/L (136-145) Potassium Level 4.5mmol/L (3.5-5.1) Chloride Level 101mmol/L (98-107) Carbon Dioxide Level 27mmol/L (21-32) Anion Gap 8 (6-14) Blood Urea Nitrogen 21mg/dL (7-20) Creatinine 0.7mg/dL (0.6-1.0) Estimated GFR (Cockcroft-Gault) 80.1 Glucose Level 261mg/dL (70-99) Calcium Level 8.9mg/dL (8.5-10.1) Phosphorus Level 2.9mg/dL (2.6-4.7) Magnesium Level 2.1mg/dL (1.8-2.4) Triglycerides Level 182mg/dL (0-150) Test 06/16/16 07:27 06/16/16 11:29 Glucose (Fingerstick) 235mg/dL (70-99) 237mg/dL (70-99) Laboratory Tests Test 06/15/16 16:24 06/15/16 20:33 06/16/16 04:40 06/16/16 07:27 Glucose (Fingerstick) 198mg/dL (70-99) 160mg/dL (70-99) 235mg/dL (70-99) White Blood Count 9.9x10^3/uL (4.0-11.0) Red Blood Count 4.08x10^6/uL (3.50-5.40) Hemoglobin 12.4g/dL (12.0-15.5) Hematocrit 37.3% (36.0-47.0) Mean Corpuscular Volume 91fL (79-100) Mean Corpuscular Hemoglobin 30pg (25-35) Mean Corpuscular Hemoglobin Concent 33g/dL (31-37) Red Cell Distribution Width 13.0% (11.5-14.5) Platelet Count 280x10^3/uL (140-400) Neutrophils (%) (Auto) 66% (31-73) Lymphocytes (%) (Auto) 20% (24-48) Monocytes (%) (Auto) 10% (0-9) Eosinophils (%) (Auto) 4% (0-3) Basophils (%) (Auto) 1% (0-3) Neutrophils # (Auto) 6.5x10^3uL (1.8-7.7) Lymphocytes # (Auto) 2.0x10^3/uL (1.0-4.8) Monocytes # (Auto) 1.0x10^3/uL (0.0-1.1) Eosinophils # (Auto) 0.4x10^3/uL (0.0-0.7) Basophils # (Auto) 0.1x10^3/uL (0.0-0.2) Sodium Level 136mmol/L (136-145) Potassium Level 4.5mmol/L (3.5-5.1) Chloride Level 101mmol/L (98-107) Carbon Dioxide Level 27mmol/L (21-32) Anion Gap 8 (6-14) Blood Urea Nitrogen 21mg/dL (7-20) Creatinine 0.7mg/dL (0.6-1.0) Estimated GFR (Cockcroft-Gault) 80.1 Glucose Level 261mg/dL (70-99) Calcium Level 8.9mg/dL (8.5-10.1) Phosphorus Level 2.9mg/dL (2.6-4.7) Magnesium Level 2.1mg/dL (1.8-2.4) Triglycerides Level 182mg/dL (0-150) Test 06/16/16 11:29 Glucose (Fingerstick) 237mg/dL (70-99) Medications Active Scripts Medications Dose Route/Sig Days Date Category Ciprofloxacin 250 Mg/5 Ml Christina.mc.rec 250 Mg PO BID 02/22/16 Rx Children's Aspirin (Aspirin) 81 Mg Tab.chew 81 Mg PO DAILYWBKFT 30 01/04/16 Rx Glipizide Er (Glipizide) 5 Mg Tab.er.24 10 Mg PO DAILY 04/25/15 Rx Pravachol (Pravastatin Sodium) 80 Mg Tablet 80 Mg PO DAILY 05/12/14 Reported Multi-Vitamin Daily (Multivitamin) 1 Each Tablet 1 Each PO DAILY 05/12/14 Reported Lisinopril 5 Mg Tablet 5 Mg PO DAILY 05/12/14 Reported Flonase (Fluticasone Propionate) 16 Gm [place].susp 2 [place] NS DAILY 05/12/14 Reported Famotidine 40 Mg Tablet 40 Mg PO DAILY 05/12/14 Reported Cymbalta (Duloxetine Hcl) 60 Mg Capsule.dr 60 Mg PO DAILY 05/12/14 Reported Docusate Sodium 100 Mg Capsule 100 Mg PO DAILY 05/12/14 Reported Fish Oil Concentrate Softgel (Docosahexanoic Acid/Epa) 1 Each Capsule 1 Each PO DAILY 05/12/14 Reported Caltrate 600 + D Tablet (Calcium Carbonate/Vitamin D3) 1 Each Tablet 1 Each PO DAILY 05/12/14 Reported Impression . Traumatic small right PTX, resolved s/p fall, multiple right rib fractures encephalopathy per neurology, improved right chest 6th to 9th rib fractures. Narcotic induced apneas, seems to have resolved. Plan . From pulmonary standpoint ,no intervention CXR with resolved PTX off benzo and narcotics. Discussed in detail with RN /daughter CPAP qhs prn will see CESAR HWANG MD Jun 16, 2016 12:07
--- NOTE | 2016-06-16 12:59 | PDOC ---
PROGRESS NOTES Assessment Problems Medical Problems: (1) Fall Status: Acute (2) Fall (on) (from) other stairs and steps, initial encounter Status: Acute (3) Ribs, multiple fractures Status: Acute Metabolic encephalopathy. Plan of Care: Continue current Tx, Mgmt Objective Vital Signs Date Time Temp Pulse Resp B/P Pulse Ox O2 Delivery O2 Flow Rate FiO2 06/16/16 10:54 97.7 63 18 153/54 97 Nasal Cannula 2.0 97.7 Intake and Output 06/16/16 07:00 Intake Total 750 ml Balance 750 ml Intake Oral 0 ml IV Total 750 ml # Voids 6 # Bowel Movements 4 PHYSICAL EXAM Alert. Oriented to Month, year, place and person. PERRL. EOMI. CN: no focal findings. Muscle tone: normal. Muscle strength: 4/5 DTR: 1+ Plantar reflex: flexor Gait: not examined in bed. Sensory exam: no abnormal findings. No cerebellar signs elicited. Review of Relevant I have reviewed the following items [place] (where applicable) has been applied. Labs Laboratory Tests Test 06/14/16 16:08 06/14/16 20:33 06/15/16 05:20 06/15/16 07:11 Glucose (Fingerstick) 222mg/dL (70-99) 163mg/dL (70-99) 225mg/dL (70-99) White Blood Count 12.1x10^3/uL (4.0-11.0) Red Blood Count 3.86x10^6/uL (3.50-5.40) Hemoglobin 11.8g/dL (12.0-15.5) Hematocrit 35.2% (36.0-47.0) Mean Corpuscular Volume 91fL (79-100) Mean Corpuscular Hemoglobin 31pg (25-35) Mean Corpuscular Hemoglobin Concent 33g/dL (31-37) Red Cell Distribution Width 13.3% (11.5-14.5) Platelet Count 242x10^3/uL (140-400) Neutrophils (%) (Auto) 70% (31-73) Lymphocytes (%) (Auto) 18% (24-48) Monocytes (%) (Auto) 9% (0-9) Eosinophils (%) (Auto) 3% (0-3) Basophils (%) (Auto) 1% (0-3) Neutrophils # (Auto) 8.4x10^3uL (1.8-7.7) Lymphocytes # (Auto) 2.2x10^3/uL (1.0-4.8) Monocytes # (Auto) 1.1x10^3/uL (0.0-1.1) Eosinophils # (Auto) 0.3x10^3/uL (0.0-0.7) Basophils # (Auto) 0.1x10^3/uL (0.0-0.2) Sodium Level 135mmol/L (136-145) Potassium Level 4.6mmol/L (3.5-5.1) Chloride Level 101mmol/L (98-107) Carbon Dioxide Level 27mmol/L (21-32) Anion Gap 7 (6-14) Blood Urea Nitrogen 25mg/dL (7-20) Creatinine 0.8mg/dL (0.6-1.0) Estimated GFR (Cockcroft-Gault) 68.7 Glucose Level 203mg/dL (70-99) Calcium Level 8.9mg/dL (8.5-10.1) Phosphorus Level 3.4mg/dL (2.6-4.7) Magnesium Level 1.9mg/dL (1.8-2.4) Test 06/15/16 11:07 06/15/16 16:24 06/15/16 20:33 06/16/16 04:40 Glucose (Fingerstick) 179mg/dL (70-99) 198mg/dL (70-99) 160mg/dL (70-99) White Blood Count 9.9x10^3/uL (4.0-11.0) Red Blood Count 4.08x10^6/uL (3.50-5.40) Hemoglobin 12.4g/dL (12.0-15.5) Hematocrit 37.3% (36.0-47.0) Mean Corpuscular Volume 91fL (79-100) Mean Corpuscular Hemoglobin 30pg (25-35) Mean Corpuscular Hemoglobin Concent 33g/dL (31-37) Red Cell Distribution Width 13.0% (11.5-14.5) Platelet Count 280x10^3/uL (140-400) Neutrophils (%) (Auto) 66% (31-73) Lymphocytes (%) (Auto) 20% (24-48) Monocytes (%) (Auto) 10% (0-9) Eosinophils (%) (Auto) 4% (0-3) Basophils (%) (Auto) 1% (0-3) Neutrophils # (Auto) 6.5x10^3uL (1.8-7.7) Lymphocytes # (Auto) 2.0x10^3/uL (1.0-4.8) Monocytes # (Auto) 1.0x10^3/uL (0.0-1.1) Eosinophils # (Auto) 0.4x10^3/uL (0.0-0.7) Basophils # (Auto) 0.1x10^3/uL (0.0-0.2) Sodium Level 136mmol/L (136-145) Potassium Level 4.5mmol/L (3.5-5.1) Chloride Level 101mmol/L (98-107) Carbon Dioxide Level 27mmol/L (21-32) Anion Gap 8 (6-14) Blood Urea Nitrogen 21mg/dL (7-20) Creatinine 0.7mg/dL (0.6-1.0) Estimated GFR (Cockcroft-Gault) 80.1 Glucose Level 261mg/dL (70-99) Calcium Level 8.9mg/dL (8.5-10.1) Phosphorus Level 2.9mg/dL (2.6-4.7) Magnesium Level 2.1mg/dL (1.8-2.4) Triglycerides Level 182mg/dL (0-150) Test 06/16/16 07:27 06/16/16 11:29 Glucose (Fingerstick) 235mg/dL (70-99) 237mg/dL (70-99) Laboratory Tests Test 06/15/16 16:24 06/15/16 20:33 06/16/16 04:40 06/16/16 07:27 Glucose (Fingerstick) 198mg/dL (70-99) 160mg/dL (70-99) 235mg/dL (70-99) White Blood Count 9.9x10^3/uL (4.0-11.0) Red Blood Count 4.08x10^6/uL (3.50-5.40) Hemoglobin 12.4g/dL (12.0-15.5) Hematocrit 37.3% (36.0-47.0) Mean Corpuscular Volume 91fL (79-100) Mean Corpuscular Hemoglobin 30pg (25-35) Mean Corpuscular Hemoglobin Concent 33g/dL (31-37) Red Cell Distribution Width 13.0% (11.5-14.5) Platelet Count 280x10^3/uL (140-400) Neutrophils (%) (Auto) 66% (31-73) Lymphocytes (%) (Auto) 20% (24-48) Monocytes (%) (Auto) 10% (0-9) Eosinophils (%) (Auto) 4% (0-3) Basophils (%) (Auto) 1% (0-3) Neutrophils # (Auto) 6.5x10^3uL (1.8-7.7) Lymphocytes # (Auto) 2.0x10^3/uL (1.0-4.8) Monocytes # (Auto) 1.0x10^3/uL (0.0-1.1) Eosinophils # (Auto) 0.4x10^3/uL (0.0-0.7) Basophils # (Auto) 0.1x10^3/uL (0.0-0.2) Sodium Level 136mmol/L (136-145) Potassium Level 4.5mmol/L (3.5-5.1) Chloride Level 101mmol/L (98-107) Carbon Dioxide Level 27mmol/L (21-32) Anion Gap 8 (6-14) Blood Urea Nitrogen 21mg/dL (7-20) Creatinine 0.7mg/dL (0.6-1.0) Estimated GFR (Cockcroft-Gault) 80.1 Glucose Level 261mg/dL (70-99) Calcium Level 8.9mg/dL (8.5-10.1) Phosphorus Level 2.9mg/dL (2.6-4.7) Magnesium Level 2.1mg/dL (1.8-2.4) Triglycerides Level 182mg/dL (0-150) Test 06/16/16 11:29 Glucose (Fingerstick) 237mg/dL (70-99) Microbiology 06/10/16 Blood Culture - Final, Complete NO GROWTH AFTER 5 DAYS 06/11/16 Gram Stain - Final, Complete 06/08/16 Urine Culture - Final, Complete 06/08/16 Urine Culture Result 1 (ALEJO) - Final, Complete Medications Current Medications Lidocaine (Lidoderm) 1 patch 1X ONCE TD Last administered on 06/08/16 09:12; Start 06/08/16 at 09:00; Stop 06/08/16 at 09:01; Status DC Acetaminophen (Tylenol) 1,000 mg 1X ONCE PO Last administered on 06/08/16 09: 12; Start 06/08/16 at 09:00; Stop 06/08/16 at 09:01; Status DC Oxycodone/ Acetaminophen (Percocet 5/325) 1 tab 1X ONCE PO Last administered on 06/08/16 10:00; Start 06/08/16 at 10:00; Stop 06/08/16 at 10:01; Status DC Ondansetron HCl (Zofran) 4 mg PRN Q6HRS PRN IV NAUSEA/VOMITING; Start 06/08/16 at 12:00; Stop 06/12/16 at 09:19; Status DC Al Hydrox/Mg Hydrox/Simethicone (Mylanta Plus Xs) 30 ml PRN Q3HRS PRN PO HEARTBURN / GAS; Start 06/08/16 at 12:00; Stop 06/12/16 at 09:19; Status DC Calcium Carbonate/ Glycine (Tums) 500 mg PRN Q3HRS PRN PO UPSET STOMACH; Start 06/08/16 at 12:00; Stop 06/12/16 at 09:19; Status DC Oxycodone HCl (Roxicodone) 5 mg PRN Q3HRS PRN PO BREAKTHROUGH PAIN; Start at 12:00; Stop 06/12/16 at 09:19; Status DC Morphine Sulfate 1 mg PRN Q2HR PRN IV PAIN; Start 06/08/16 at 12:00; Stop at 09:19; Status DC Oxycodone/ Acetaminophen (Percocet 5/325) 1 tab PRN Q4HRS PRN PO MILD PAIN, 1ST CHOICE Last administered on 06/09/16 15:03; Start 06/08/16 at 12:00; Stop 06/12/16 at 09:19; Status DC Docusate Sodium (Colace) 100 mg BID PO ; Start 06/08/16 at 21:00; Status Cancel Magnesium Hydroxide (Milk Of Magnesia) 2,400 mg PRN Q12HR PRN PO CONSTIPATION; Start 06/08/16 at 12:00; Stop 06/12/16 at 09:19; Status DC Lactulose 20 gm PRN Q12HR PRN PO CONSTIPATION; Start 06/08/16 at 12:00; Stop 06/12/16 at 09:19; Status DC Bisacodyl (Dulcolax Supp) 10 mg PRN DAILY PRN [place] CONSTIPATION; Start 06/08/16 at 12:00; Stop 06/12/16 at 09:19; Status DC Enoxaparin Sodium (Lovenox 40mg Syringe) 40 mg DAILY16 SQ Last administered on 06/09/16 15:03; Start 06/08/16 at 16:00; Stop 06/10/16 at 12:52; Status DC Lidocaine (Lidoderm) 1 patch DAILY TD Last administered on 06/09/16 07:41; Start 06/08/16 at 13:00 Aspirin (Children'S Aspirin) 81 mg DAILYWBKFT PO Last administered on 06/09/16 07:41; Start 06/08/16 at 13:00 Docusate Sodium (Colace) 100 mg DAILY PO Last administered on 06/09/16 09:00; Start 06/09/16 at 09:00 Fluticasone Propionate (Flonase) 2 spray DAILY NS Last administered on 09:03; Start 06/08/16 at 13:00 Glipizide (Glucotrol Er) 10 mg DAILY08 PO Last administered on 06/09/16 07:38; Start 06/08/16 at 13:00 Lisinopril (Prinivil) 5 mg DAILY PO Last administered on 06/09/16 07:39; Start 06/08/16 at 13:00 Calcium/Vitamin D (Oscal D 500mg/ 200uts) 1 tab DAILY PO Last administered on 07:39; Start 06/08/16 at 13:00 Fish Oil (Fish Oil) 1,000 mg DAILY PO Last administered on 06/09/16 07:38; Start 06/08/16 at 13:00 Duloxetine HCl (Cymbalta) 60 mg DAILY PO Last administered on 06/09/16 07:40; Start 06/08/16 at 13:00 Famotidine (Pepcid) 40 mg DAILY PO Last administered on 06/09/16 07:40; Start 06/08/16 at 13:00; Stop 06/10/16 at 11:55; Status DC Multivitamins/ Calcium (Thera M Plus) 1 tab DAILY PO Last administered on 07:39; Start 06/08/16 at 13:00 Atorvastatin Calcium (Lipitor) 20 mg QHS PO Last administered on 06/08/16 20:56 ; Start 06/08/16 at 21:00 Insulin Aspart (Novolog) 0-9 UNITS TIDWMEALS SQ Last administered on 06/13/16 17:49; Start 06/08/16 at 12:30; Stop 06/13/16 at 20:54; Status DC Dextrose 12.5 gm PRN Q15MIN PRN IV SEE COMMENTS; Start 06/08/16 at 12:15 Ondansetron HCl 4 mg 4 mg PRN Q8HRS PRN IV NAUSEA/VOMITING; Start 06/08/16 at 12 :45; Stop 06/09/16 at 12:44; Status DC Piperacillin Sod/ Tazobactam Sod/ Sodium Chloride (Zosyn/Iv Sodium Chloride 0.9 % 50ml) 50 ml @ 100 mls/hr Q6HRS IV Last administered on 06/16/16 05:45; Start 06/10/16 at 12:00 Pantoprazole Sodium 40 mg 40 mg DAILYAC IVP Last administered on 06/16/16 09: 04; Start 06/10/16 at 11:00 Amino Acids/ Electrolytes/ Dextrose 1,000 ml @ 75 mls/hr [id number] PRN IV . Last administered on 06/14/16 20:34; Start 06/10/16 at 11:00; Stop 06/15/16 at 21:59; Status DC Sodium Chloride (Iv Sodium Chloride 0.9% 1000ml Bag) 1,000 ml @ 50 mls/hr Q20H IV Last administered on 06/16/16 09:04; Start 06/10/16 at 11:00 Naloxone HCl (Narcan) 0.4 mg PRN Q2MIN PRN IV SEE COMMENTS; Start 06/10/16 at 11 :30 Naloxone HCl 0.4 mg 0.4 mg 1X ONCE IV Last administered on 06/10/16 12:07; Start 06/10/16 at 12:00; Stop 06/10/16 at 12:01; Status DC Daptomycin 500 mg/ Sodium Chloride 50 ml @ 100 mls/hr Q24H IV Last administered on 06/10/16 14:56; Start 06/10/16 at 14:00; Stop 06/10/16 at 18:00; Status DC Metronidazole (FLAGYL 500Mmg PREMIX) 100 ml @ 100 mls/hr Q8H IV Last administered on 06/12/16 08:08; Start 06/10/16 at 16:00; Stop 06/12/16 at 09:07; Status DC Lorazepam (Ativan) 1 mg PRN Q4HRS PRN IV ANXIETY / AGITATION Last administered on 06/10/16 17:28; Start 06/10/16 at 17:00; Stop 06/12/16 at 09:19; Status DC Flumazenil 0.1 mg 0.1 mg 1X ONCE IV Last administered on 06/11/16 15:15; Start 06/11/16 at 14:30; Stop 06/11/16 at 14:33; Status DC Acyclovir Sodium/ Dextrose (Zovirax) 262.4 ml @ 262.4 mls/ hr Q8HRS IV Last administered on 06/16/16 05:46; Start 06/13/16 at 09:00 Alteplase, Recombinant (Cathflo) 2 mg 1X ONCE INT CAT Last administered on 06/13 16:14; Start 06/13/16 at 15:00; Stop 06/13/16 at 15:01; Status DC Insulin Aspart (Novolog) 0-9 UNITS QIDACHS SQ Last administered on 06/16/16 11 :57; Start 06/13/16 at 21:00 Info 1 each 1 each PRN DAILY PRN MC SEE COMMENTS Last administered on 11:45; Start 06/15/16 at 11:00 Sodium Chloride/ Potassium Chloride/ Potassium Phosphate/ Magnesium Sulfate/ Calcium Gluconate/ Multivitamins/ Chromium/Copper/ Manganese/Seleni/ Zn/Total Parenteral Nutrition/Amino Acids/Dextrose/ Fat Emulsion Intravenous (Sodium Chloride/ Potassium Phospha... 1,512 ml @ 63 mls/hr TPN CONT IV Last administered on 06/15/16t 21:21; Start 06/15/16 at 22:00; Stop 06/16/16 at 21:59 Saliva Substitute 2 spray 2 spray PRN Q15MIN PRN PO DRY MOUTH; Start 06/16/16 at 11:15 Sodium Chloride/ Potassium Chloride/ Potassium Phosphate/ Magnesium Sulfate/ Calcium Gluconate/ Multivitamins/ Chromium/Copper/ Manganese/Seleni/ Zn/Total Parenteral Nutrition/Amino Acids/Dextrose/ Fat Emulsion Intravenous (Sodium Chloride/ Potassium Phospha... 1,512 ml @ 63 mls/hr TPN CONT IV ; Start at 22:00; Stop 06/17/16 at 21:59 Active Scripts Active Ciprofloxacin 250 Mg/5 Ml Christina.mc.rec 250 Mg PO BID Children's Aspirin (Aspirin) 81 Mg Tab.chew 81 Mg PO DAILYWBKFT 30 Days Glipizide Er (Glipizide) 5 Mg Tab.er.24 10 Mg PO DAILY Reported Pravachol (Pravastatin Sodium) 80 Mg Tablet 80 Mg PO DAILY Multi-Vitamin Daily (Multivitamin) 1 Each Tablet 1 Each PO DAILY Lisinopril 5 Mg Tablet 5 Mg PO DAILY Flonase (Fluticasone Propionate) 16 Gm [place].susp 2 [place] NS DAILY Famotidine 40 Mg Tablet 40 Mg PO DAILY Cymbalta (Duloxetine Hcl) 60 Mg Capsule.dr 60 Mg PO DAILY Docusate Sodium 100 Mg Capsule 100 Mg PO DAILY Fish Oil Concentrate Softgel (Docosahexanoic Acid/Epa) 1 Each Capsule 1 Each PO DAILY Caltrate 600 + D Tablet (Calcium Carbonate/Vitamin D3) 1 Each Tablet 1 Each PO DAILY Vitals/I & O Vital Sign - Last 24 Hours 06/15/16 06/15/16 06/15/16 06/15/16 15:00 19:00 20:00 23:00 Temp 97.5 97.8 98.1 97.5 97.8 98.1 Pulse 75 72 72 Resp 12 18 18 B/P 128/50 129/49 137/57 Pulse Ox 95 98 99 O2 Delivery Nasal Cannula Nasal Cannula Nasal Cannula Nasal Cannula O2 Flow Rate 2.0 2.0 2.0 2.0 06/16/16 06/16/16 06/16/16 06/16/16 03:00 07:00 08:00 10:54 Temp 98.2 97.8 97.7 98.2 97.8 97.7 Pulse 71 74 63 Resp 18 18 18 B/P 170/45 136/58 153/54 Pulse Ox 97 96 97 O2 Delivery Nasal Cannula Nasal Cannula Nasal Cannula Nasal Cannula O2 Flow Rate 2.0 2.0 2.0 2.0 Intake and Output 06/15/16 06/15/16 06/16/16 15:00 23:00 07:00 Intake Total 750 ml Balance 750 ml Images CSF on 06/11: WBC 3, RBC 26, Glucose 122, protein 63.3. Brain MRI w/o contrast performed showed no evidence of CVA this time. Contrast not given due to renal failure. EEG on 06/14: Posterior dominant rhythm is mildly slow for age. YOSVANY JENSEN MD Jun 16, 2016 12:59
--- NOTE | 2016-06-16 14:14 | PDOC ---
Infectious Disease Note Subjective Subjective Wanting food On TPN ROS ROS GEN: Denies fevers, chills, sweats HEENT: Denies sore throat CV: Denies chest pain RESP: Denies shortness of air, cough GI: Denies n/v/d Vital Sign Vital Signs Vital Signs Date Time Temp Pulse Resp B/P Pulse Ox O2 Delivery O2 Flow Rate FiO2 06/16/16 10:54 97.7 63 18 153/54 97 Nasal Cannula 2.0 97.7 Physical Exam PHYSICAL EXAM GENERAL: Alert, NAD HEENT: PERRL, OC/OP clear LUNGS: Clear HEART: S1S2, no gallop, no murmur ABD: Soft, NT EXT: No edema, no cyanosis [employer]: Alert, oriented x 3 SKIN: No rash RUE-PICC. clean Labs Lab Laboratory Tests Test 06/15/16 16:24 06/15/16 20:33 06/16/16 04:40 06/16/16 07:27 Glucose (Fingerstick) 198mg/dL (70-99) 160mg/dL (70-99) 235mg/dL (70-99) White Blood Count 9.9x10^3/uL (4.0-11.0) Red Blood Count 4.08x10^6/uL (3.50-5.40) Hemoglobin 12.4g/dL (12.0-15.5) Hematocrit 37.3% (36.0-47.0) Mean Corpuscular Volume 91fL (79-100) Mean Corpuscular Hemoglobin 30pg (25-35) Mean Corpuscular Hemoglobin Concent 33g/dL (31-37) Red Cell Distribution Width 13.0% (11.5-14.5) Platelet Count 280x10^3/uL (140-400) Neutrophils (%) (Auto) 66% (31-73) Lymphocytes (%) (Auto) 20% (24-48) Monocytes (%) (Auto) 10% (0-9) Eosinophils (%) (Auto) 4% (0-3) Basophils (%) (Auto) 1% (0-3) Neutrophils # (Auto) 6.5x10^3uL (1.8-7.7) Lymphocytes # (Auto) 2.0x10^3/uL (1.0-4.8) Monocytes # (Auto) 1.0x10^3/uL (0.0-1.1) Eosinophils # (Auto) 0.4x10^3/uL (0.0-0.7) Basophils # (Auto) 0.1x10^3/uL (0.0-0.2) Sodium Level 136mmol/L (136-145) Potassium Level 4.5mmol/L (3.5-5.1) Chloride Level 101mmol/L (98-107) Carbon Dioxide Level 27mmol/L (21-32) Anion Gap 8 (6-14) Blood Urea Nitrogen 21mg/dL (7-20) Creatinine 0.7mg/dL (0.6-1.0) Estimated GFR (Cockcroft-Gault) 80.1 Glucose Level 261mg/dL (70-99) Calcium Level 8.9mg/dL (8.5-10.1) Phosphorus Level 2.9mg/dL (2.6-4.7) Magnesium Level 2.1mg/dL (1.8-2.4) Triglycerides Level 182mg/dL (0-150) Test 06/16/16 11:29 Glucose (Fingerstick) 237mg/dL (70-99) CXR IMPRESSION: 1. Residual mild right basilar atelectasis. 2. No evidence of pneumothorax. Objective Assessment ? sepsis Leukocytosis, improved Acute encephalopathy, etiology unclear -LP: 06/11. CSF WBC 3, RBC 26, Glucose 122, protein 63.3. WNV neg. No organisms on GS. - HSV PCR negative - Brain MRI w/o contrast performed showed no evidence of CVA this time. Bloody diarrhea. c. diff neg. better ANT. improved Multiple rib fractures post mechanical fall DM Type II CAD h/o CVA Recent UTI on cipro Plan Plan of Care Zosyn Acyclovir HSV neg but will cont for now. HAs improved over last 2 days per daughter Monitor labs D/w daughter Attending Co-Sign Attending Co-Sign The patient was seen and interviewed as well as examined at the bedside. The chart was reviewed. The case was discussed. Agree with the plan of care. YOMAIRA REYES APRN Jun 16, 2016 14:14 ROSIBEL GAY MD Jun 16, 2016 15:32
[2016-06-16 14:38] VITALS: BP 142/51
--- NOTE | 2016-06-16 14:49 | PDOC ---
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 Right rib fxs number 6-9 2. Altered Mental Status 3. Leukocytosis 4. H/o GERD 5. 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 Scoliosis 8. HTN 9. Diabetes History of Present Illness History of Present Illness mental status much better today, conversant, some orientation wants to sit up and asks to eat poor recall from past few days Vitals Vitals Vital Signs Date Time Temp Pulse Resp B/P Pulse Ox O2 Delivery O2 Flow Rate FiO2 06/16/16 14:38 97.5 66 18 142/51 94 Nasal Cannula 2.0 97.5 Physical Exam Physical Exam confused, General: Alert, Cooperative, No acute distress, Other ( some oriented 2/3) Heart: Regular rate, Normal S1, Normal S2, No murmurs Lungs: Clear Abdomen: Soft, No masses, Other (Tender, w. some guarding) Extremities: No cyanosis, No edema Skin: No breakdown, No significant lesion Labs LABS Laboratory Tests Test 06/15/16 16:24 06/15/16 20:33 06/16/16 04:40 06/16/16 07:27 Glucose (Fingerstick) 198mg/dL (70-99) 160mg/dL (70-99) 235mg/dL (70-99) White Blood Count 9.9x10^3/uL (4.0-11.0) Red Blood Count 4.08x10^6/uL (3.50-5.40) Hemoglobin 12.4g/dL (12.0-15.5) Hematocrit 37.3% (36.0-47.0) Mean Corpuscular Volume 91fL (79-100) Mean Corpuscular Hemoglobin 30pg (25-35) Mean Corpuscular Hemoglobin Concent 33g/dL (31-37) Red Cell Distribution Width 13.0% (11.5-14.5) Platelet Count 280x10^3/uL (140-400) Neutrophils (%) (Auto) 66% (31-73) Lymphocytes (%) (Auto) 20% (24-48) Monocytes (%) (Auto) 10% (0-9) Eosinophils (%) (Auto) 4% (0-3) Basophils (%) (Auto) 1% (0-3) Neutrophils # (Auto) 6.5x10^3uL (1.8-7.7) Lymphocytes # (Auto) 2.0x10^3/uL (1.0-4.8) Monocytes # (Auto) 1.0x10^3/uL (0.0-1.1) Eosinophils # (Auto) 0.4x10^3/uL (0.0-0.7) Basophils # (Auto) 0.1x10^3/uL (0.0-0.2) Sodium Level 136mmol/L (136-145) Potassium Level 4.5mmol/L (3.5-5.1) Chloride Level 101mmol/L (98-107) Carbon Dioxide Level 27mmol/L (21-32) Anion Gap 8 (6-14) Blood Urea Nitrogen 21mg/dL (7-20) Creatinine 0.7mg/dL (0.6-1.0) Estimated GFR (Cockcroft-Gault) 80.1 Glucose Level 261mg/dL (70-99) Calcium Level 8.9mg/dL (8.5-10.1) Phosphorus Level 2.9mg/dL (2.6-4.7) Magnesium Level 2.1mg/dL (1.8-2.4) Triglycerides Level 182mg/dL (0-150) Test 06/16/16 11:29 Glucose (Fingerstick) 237mg/dL (70-99) Assessment and Plan Assessmemt and Plan needs re-eval swallow, mental status improved Problems Medical Problems: (1) Fall Status: Acute (2) Fall (on) (from) other stairs and steps, initial encounter Status: Acute (3) Ribs, multiple fractures Status: Acute Problems: Comment Review of Relevant I have reviewed the following items quincy (where applicable) has been applied. Labs Laboratory Tests Test 06/14/16 16:08 06/14/16 20:33 06/15/16 05:20 06/15/16 07:11 Glucose (Fingerstick) 222mg/dL (70-99) 163mg/dL (70-99) 225mg/dL (70-99) White Blood Count 12.1x10^3/uL (4.0-11.0) Red Blood Count 3.86x10^6/uL (3.50-5.40) Hemoglobin 11.8g/dL (12.0-15.5) Hematocrit 35.2% (36.0-47.0) Mean Corpuscular Volume 91fL (79-100) Mean Corpuscular Hemoglobin 31pg (25-35) Mean Corpuscular Hemoglobin Concent 33g/dL (31-37) Red Cell Distribution Width 13.3% (11.5-14.5) Platelet Count 242x10^3/uL (140-400) Neutrophils (%) (Auto) 70% (31-73) Lymphocytes (%) (Auto) 18% (24-48) Monocytes (%) (Auto) 9% (0-9) Eosinophils (%) (Auto) 3% (0-3) Basophils (%) (Auto) 1% (0-3) Neutrophils # (Auto) 8.4x10^3uL (1.8-7.7) Lymphocytes # (Auto) 2.2x10^3/uL (1.0-4.8) Monocytes # (Auto) 1.1x10^3/uL (0.0-1.1) Eosinophils # (Auto) 0.3x10^3/uL (0.0-0.7) Basophils # (Auto) 0.1x10^3/uL (0.0-0.2) Sodium Level 135mmol/L (136-145) Potassium Level 4.6mmol/L (3.5-5.1) Chloride Level 101mmol/L (98-107) Carbon Dioxide Level 27mmol/L (21-32) Anion Gap 7 (6-14) Blood Urea Nitrogen 25mg/dL (7-20) Creatinine 0.8mg/dL (0.6-1.0) Estimated GFR (Cockcroft-Gault) 68.7 Glucose Level 203mg/dL (70-99) Calcium Level 8.9mg/dL (8.5-10.1) Phosphorus Level 3.4mg/dL (2.6-4.7) Magnesium Level 1.9mg/dL (1.8-2.4) Test 06/15/16 11:07 06/15/16 16:24 06/15/16 20:33 06/16/16 04:40 Glucose (Fingerstick) 179mg/dL (70-99) 198mg/dL (70-99) 160mg/dL (70-99) White Blood Count 9.9x10^3/uL (4.0-11.0) Red Blood Count 4.08x10^6/uL (3.50-5.40) Hemoglobin 12.4g/dL (12.0-15.5) Hematocrit 37.3% (36.0-47.0) Mean Corpuscular Volume 91fL (79-100) Mean Corpuscular Hemoglobin 30pg (25-35) Mean Corpuscular Hemoglobin Concent 33g/dL (31-37) Red Cell Distribution Width 13.0% (11.5-14.5) Platelet Count 280x10^3/uL (140-400) Neutrophils (%) (Auto) 66% (31-73) Lymphocytes (%) (Auto) 20% (24-48) Monocytes (%) (Auto) 10% (0-9) Eosinophils (%) (Auto) 4% (0-3) Basophils (%) (Auto) 1% (0-3) Neutrophils # (Auto) 6.5x10^3uL (1.8-7.7) Lymphocytes # (Auto) 2.0x10^3/uL (1.0-4.8) Monocytes # (Auto) 1.0x10^3/uL (0.0-1.1) Eosinophils # (Auto) 0.4x10^3/uL (0.0-0.7) Basophils # (Auto) 0.1x10^3/uL (0.0-0.2) Sodium Level 136mmol/L (136-145) Potassium Level 4.5mmol/L (3.5-5.1) Chloride Level 101mmol/L (98-107) Carbon Dioxide Level 27mmol/L (21-32) Anion Gap 8 (6-14) Blood Urea Nitrogen 21mg/dL (7-20) Creatinine 0.7mg/dL (0.6-1.0) Estimated GFR (Cockcroft-Gault) 80.1 Glucose Level 261mg/dL (70-99) Calcium Level 8.9mg/dL (8.5-10.1) Phosphorus Level 2.9mg/dL (2.6-4.7) Magnesium Level 2.1mg/dL (1.8-2.4) Triglycerides Level 182mg/dL (0-150) Test 06/16/16 07:27 06/16/16 11:29 Glucose (Fingerstick) 235mg/dL (70-99) 237mg/dL (70-99) Laboratory Tests Test 06/15/16 16:24 06/15/16 20:33 06/16/16 04:40 06/16/16 07:27 Glucose (Fingerstick) 198mg/dL (70-99) 160mg/dL (70-99) 235mg/dL (70-99) White Blood Count 9.9x10^3/uL (4.0-11.0) Red Blood Count 4.08x10^6/uL (3.50-5.40) Hemoglobin 12.4g/dL (12.0-15.5) Hematocrit 37.3% (36.0-47.0) Mean Corpuscular Volume 91fL (79-100) Mean Corpuscular Hemoglobin 30pg (25-35) Mean Corpuscular Hemoglobin Concent 33g/dL (31-37) Red Cell Distribution Width 13.0% (11.5-14.5) Platelet Count 280x10^3/uL (140-400) Neutrophils (%) (Auto) 66% (31-73) Lymphocytes (%) (Auto) 20% (24-48) Monocytes (%) (Auto) 10% (0-9) Eosinophils (%) (Auto) 4% (0-3) Basophils (%) (Auto) 1% (0-3) Neutrophils # (Auto) 6.5x10^3uL (1.8-7.7) Lymphocytes # (Auto) 2.0x10^3/uL (1.0-4.8) Monocytes # (Auto) 1.0x10^3/uL (0.0-1.1) Eosinophils # (Auto) 0.4x10^3/uL (0.0-0.7) Basophils # (Auto) 0.1x10^3/uL (0.0-0.2) Sodium Level 136mmol/L (136-145) Potassium Level 4.5mmol/L (3.5-5.1) Chloride Level 101mmol/L (98-107) Carbon Dioxide Level 27mmol/L (21-32) Anion Gap 8 (6-14) Blood Urea Nitrogen 21mg/dL (7-20) Creatinine 0.7mg/dL (0.6-1.0) Estimated GFR (Cockcroft-Gault) 80.1 Glucose Level 261mg/dL (70-99) Calcium Level 8.9mg/dL (8.5-10.1) Phosphorus Level 2.9mg/dL (2.6-4.7) Magnesium Level 2.1mg/dL (1.8-2.4) Triglycerides Level 182mg/dL (0-150) Test 06/16/16 11:29 Glucose (Fingerstick) 237mg/dL (70-99) Microbiology 06/10/16 Blood Culture - Final, Complete NO GROWTH AFTER 5 DAYS 06/11/16 Gram Stain - Final, Complete 06/08/16 Urine Culture - Final, Complete 06/08/16 Urine Culture Result 1 (ALEJO) - Final, Complete Medications Current Medications Lidocaine (Lidoderm) 1 patch 1X ONCE TD Last administered on 06/08/16 09:12; Start 06/08/16 at 09:00; Stop 06/08/16 at 09:01; Status DC Acetaminophen (Tylenol) 1,000 mg 1X ONCE PO Last administered on 06/08/16 09: 12; Start 06/08/16 at 09:00; Stop 06/08/16 at 09:01; Status DC Oxycodone/ Acetaminophen (Percocet 5/325) 1 tab 1X ONCE PO Last administered on 06/08/16 10:00; Start 06/08/16 at 10:00; Stop 06/08/16 at 10:01; Status DC Ondansetron HCl (Zofran) 4 mg PRN Q6HRS PRN IV NAUSEA/VOMITING; Start 06/08/16 at 12:00; Stop 06/12/16 at 09:19; Status DC Al Hydrox/Mg Hydrox/Simethicone (Mylanta Plus Xs) 30 ml PRN Q3HRS PRN PO HEARTBURN / GAS; Start 06/08/16 at 12:00; Stop 06/12/16 at 09:19; Status DC Calcium Carbonate/ Glycine (Tums) 500 mg PRN Q3HRS PRN PO UPSET STOMACH; Start 06/08/16 at 12:00; Stop 06/12/16 at 09:19; Status DC Oxycodone HCl (Roxicodone) 5 mg PRN Q3HRS PRN PO BREAKTHROUGH PAIN; Start at 12:00; Stop 06/12/16 at 09:19; Status DC Morphine Sulfate 1 mg PRN Q2HR PRN IV PAIN; Start 06/08/16 at 12:00; Stop at 09:19; Status DC Oxycodone/ Acetaminophen (Percocet 5/325) 1 tab PRN Q4HRS PRN PO MILD PAIN, 1ST CHOICE Last administered on 06/09/16 15:03; Start 06/08/16 at 12:00; Stop 06/12/16 at 09:19; Status DC Docusate Sodium (Colace) 100 mg BID PO ; Start 06/08/16 at 21:00; Status Cancel Magnesium Hydroxide (Milk Of Magnesia) 2,400 mg PRN Q12HR PRN PO CONSTIPATION; Start 06/08/16 at 12:00; Stop 06/12/16 at 09:19; Status DC Lactulose 20 gm PRN Q12HR PRN PO CONSTIPATION; Start 06/08/16 at 12:00; Stop 06/12/16 at 09:19; Status DC Bisacodyl (Dulcolax Supp) 10 mg PRN DAILY PRN PA CONSTIPATION; Start 06/08/16 at 12:00; Stop 06/12/16 at 09:19; Status DC Enoxaparin Sodium (Lovenox 40mg Syringe) 40 mg DAILY16 SQ Last administered on 06/09/16 15:03; Start 06/08/16 at 16:00; Stop 06/10/16 at 12:52; Status DC Lidocaine (Lidoderm) 1 patch DAILY TD Last administered on 06/09/16 07:41; Start 06/08/16 at 13:00 Aspirin (Children'S Aspirin) 81 mg DAILYWBKFT PO Last administered on 06/09/16 07:41; Start 06/08/16 at 13:00 Docusate Sodium (Colace) 100 mg DAILY PO Last administered on 06/09/16 09:00; Start 06/09/16 at 09:00 Fluticasone Propionate (Flonase) 2 spray DAILY NS Last administered on 09:03; Start 06/08/16 at 13:00 Glipizide (Glucotrol Er) 10 mg DAILY08 PO Last administered on 06/09/16 07:38; Start 06/08/16 at 13:00 Lisinopril (Prinivil) 5 mg DAILY PO Last administered on 06/09/16 07:39; Start 06/08/16 at 13:00 Calcium/Vitamin D (Oscal D 500mg/ 200uts) 1 tab DAILY PO Last administered on 07:39; Start 06/08/16 at 13:00 Fish Oil (Fish Oil) 1,000 mg DAILY PO Last administered on 06/09/16 07:38; Start 06/08/16 at 13:00 Duloxetine HCl (Cymbalta) 60 mg DAILY PO Last administered on 06/09/16 07:40; Start 06/08/16 at 13:00 Famotidine (Pepcid) 40 mg DAILY PO Last administered on 06/09/16 07:40; Start 06/08/16 at 13:00; Stop 06/10/16 at 11:55; Status DC Multivitamins/ Calcium (Thera M Plus) 1 tab DAILY PO Last administered on 07:39; Start 06/08/16 at 13:00 Atorvastatin Calcium (Lipitor) 20 mg QHS PO Last administered on 06/08/16 20:56 ; Start 06/08/16 at 21:00 Insulin Aspart (Novolog) 0-9 UNITS TIDWMEALS SQ Last administered on 06/13/16 17:49; Start 06/08/16 at 12:30; Stop 06/13/16 at 20:54; Status DC Dextrose 12.5 gm PRN Q15MIN PRN IV SEE COMMENTS; Start 06/08/16 at 12:15 Ondansetron HCl 4 mg 4 mg PRN Q8HRS PRN IV NAUSEA/VOMITING; Start 06/08/16 at 12 :45; Stop 06/09/16 at 12:44; Status DC Piperacillin Sod/ Tazobactam Sod/ Sodium Chloride (Zosyn/Iv Sodium Chloride 0.9 % 50ml) 50 ml @ 100 mls/hr Q6HRS IV Last administered on 06/16/16 13:46; Start 06/10/16 at 12:00 Pantoprazole Sodium 40 mg 40 mg DAILYAC IVP Last administered on 06/16/16 09: 04; Start 06/10/16 at 11:00 Amino Acids/ Electrolytes/ Dextrose 1,000 ml @ 75 mls/hr [id number] PRN IV . Last administered on 06/14/16 20:34; Start 06/10/16 at 11:00; Stop 06/15/16 at 21:59; Status DC Sodium Chloride (Iv Sodium Chloride 0.9% 1000ml Bag) 1,000 ml @ 50 mls/hr Q20H IV Last administered on 06/16/16 09:04; Start 06/10/16 at 11:00 Naloxone HCl (Narcan) 0.4 mg PRN Q2MIN PRN IV SEE COMMENTS; Start 06/10/16 at 11 :30 Naloxone HCl 0.4 mg 0.4 mg 1X ONCE IV Last administered on 06/10/16 12:07; Start 06/10/16 at 12:00; Stop 06/10/16 at 12:01; Status DC Daptomycin 500 mg/ Sodium Chloride 50 ml @ 100 mls/hr Q24H IV Last administered on 06/10/16 14:56; Start 06/10/16 at 14:00; Stop 06/10/16 at 18:00; Status DC Metronidazole (FLAGYL 500Mmg PREMIX) 100 ml @ 100 mls/hr Q8H IV Last administered on 06/12/16 08:08; Start 06/10/16 at 16:00; Stop 06/12/16 at 09:07; Status DC Lorazepam (Ativan) 1 mg PRN Q4HRS PRN IV ANXIETY / AGITATION Last administered on 06/10/16 17:28; Start 06/10/16 at 17:00; Stop 06/12/16 at 09:19; Status DC Flumazenil 0.1 mg 0.1 mg 1X ONCE IV Last administered on 06/11/16 15:15; Start 06/11/16 at 14:30; Stop 06/11/16 at 14:33; Status DC Acyclovir Sodium/ Dextrose (Zovirax) 262.4 ml @ 262.4 mls/ hr Q8HRS IV Last administered on 06/16/16 14:35; Start 06/13/16 at 09:00 Alteplase, Recombinant (Cathflo) 2 mg 1X ONCE INT CAT Last administered on 06/13 16:14; Start 06/13/16 at 15:00; Stop 06/13/16 at 15:01; Status DC Insulin Aspart (Novolog) 0-9 UNITS QIDACHS SQ Last administered on 06/16/16 11 :57; Start 06/13/16 at 21:00 Info 1 each 1 each PRN DAILY PRN MC SEE COMMENTS Last administered on 11:45; Start 06/15/16 at 11:00 Sodium Chloride/ Potassium Chloride/ Potassium Phosphate/ Magnesium Sulfate/ Calcium Gluconate/ Multivitamins/ Chromium/Copper/ Manganese/Seleni/ Zn/Total Parenteral Nutrition/Amino Acids/Dextrose/ Fat Emulsion Intravenous (Sodium Chloride/ Potassium Phospha... 1,512 ml @ 63 mls/hr TPN CONT IV Last administered on 06/15/16 21:21; Start 06/15/16 at 22:00; Stop 06/16/16 at 21:59 Saliva Substitute 2 spray 2 spray PRN Q15MIN PRN PO DRY MOUTH; Start 06/16/16 at 11:15 Sodium Chloride/ Potassium Chloride/ Potassium Phosphate/ Magnesium Sulfate/ Calcium Gluconate/ Multivitamins/ Chromium/Copper/ Manganese/Seleni/ Zn/Total Parenteral Nutrition/Amino Acids/Dextrose/ Fat Emulsion Intravenous (Sodium Chloride/ Potassium Phospha... 1,512 ml @ 63 mls/hr TPN CONT IV ; Start at 22:00; Stop 06/17/16 at 21:59 Active Scripts Active Ciprofloxacin 250 Mg/5 Ml Christina.mc.rec 250 Mg PO BID Children's Aspirin (Aspirin) 81 Mg Tab.chew 81 Mg PO DAILYWBKFT 30 Days Glipizide Er (Glipizide) 5 Mg Tab.er.24 10 Mg PO DAILY Reported Pravachol (Pravastatin Sodium) 80 Mg Tablet 80 Mg PO DAILY Multi-Vitamin Daily (Multivitamin) 1 Each Tablet 1 Each PO DAILY Lisinopril 5 Mg Tablet 5 Mg PO DAILY Flonase (Fluticasone Propionate) 16 Gm [place].susp 2 [place] NS DAILY Famotidine 40 Mg Tablet 40 Mg PO DAILY Cymbalta (Duloxetine Hcl) 60 Mg Capsule.dr 60 Mg PO DAILY Docusate Sodium 100 Mg Capsule 100 Mg PO DAILY Fish Oil Concentrate Softgel (Docosahexanoic Acid/Epa) 1 Each Capsule 1 Each PO DAILY Caltrate 600 + D Tablet (Calcium Carbonate/Vitamin D3) 1 Each Tablet 1 Each PO DAILY Vitals/I & O Vital Sign - Last 24 Hours 06/15/16 06/15/16 06/15/16 06/15/16 15:00 19:00 20:00 23:00 Temp 97.5 97.8 98.1 97.5 97.8 98.1 Pulse 75 72 72 Resp 12 18 18 B/P 128/50 129/49 137/57 Pulse Ox 95 98 99 O2 Delivery Nasal Cannula Nasal Cannula Nasal Cannula Nasal Cannula O2 Flow Rate 2.0 2.0 2.0 2.0 06/16/16 06/16/16 06/16/16 06/16/16 03:00 07:00 08:00 10:54 Temp 98.2 97.8 97.7 98.2 97.8 97.7 Pulse 71 74 63 Resp 18 18 18 B/P 170/45 136/58 153/54 Pulse Ox 97 96 97 O2 Delivery Nasal Cannula Nasal Cannula Nasal Cannula Nasal Cannula O2 Flow Rate 2.0 2.0 2.0 2.0 06/16/16 14:38 Temp 97.5 97.5 Pulse 66 Resp 18 B/P 142/51 Pulse Ox 94 O2 Delivery Nasal Cannula O2 Flow Rate 2.0 Intake and Output 06/15/16 06/15/16 06/16/16 15:00 23:00 07:00 Intake Total 750 ml Balance 750 ml TAI CELESTE MD Jun 16, 2016 14:49
[2016-06-16] MEDS ORDERED: INSULIN DETEMIR 300 UNITS/3 ML INSULN.PEN. SQ ONE ×2 (15:00→15:30)
[2016-06-16 19:00] VITALS: BP 142/64
[2016-06-16] MEDS: ATORVASTATIN CALCIUM 20 MG TABLET PO SCH (21:00)
[2016-06-16] MEDS ORDERED: TOTAL PARENTERAL NUTRITION 1,424.9987 ML, AMINO ACIDS 10 % 60 GM, DEXTROSE 70 % IN WATE... IV SCH ×10 (22:00)
[2016-06-16 23:00] VITALS: BP 137/52
[2016-06-17 03:00] VITALS: BP 142/67
[2016-06-17] MEDS: ACYCLOVIR SODIUM 620 MG in IV DEXTROSE 5% 250 ML IV SCH (05:10)
[2016-06-17] MEDS: PIPERACILLIN/TAZOBACTAM 3.375 GM in IV NORMAL SALINE 50ML 50 ML IV SCH ×4 (06:14→12:28)
[2016-06-17 07:00] VITALS: BP 146/60
[2016-06-17 07:07] LABS: CREATININE 0.7 mg/dL (0.6-1.0); GFR 80.1; MAGNESIUM 1.9 mg/dL (1.8-2.4); PHOSPHORUS 2.7 mg/dL (2.6-4.7); POTASSIUM 4.1 mmol/L (3.5-5.1)
[2016-06-17] MEDS: GLIPIZIDE ER 5 MG TAB.ER.24 PO SCH (08:00)
[2016-06-17] MEDS: ASPIRIN 81 MG TAB.CHEW PO SCH (08:00)
[2016-06-17] MEDS: DOCUSATE SODIUM 100 MG CAPSULE PO SCH (09:00)
[2016-06-17] MEDS: OMEGA-3 FATTY ACIDS/FISH OIL 1,000 MG CAPSULE. PO SCH (09:00)
[2016-06-17] MEDS: LISINOPRIL 5 MG TABLET. PO SCH (09:00)
[2016-06-17] MEDS: DULOXETINE HCL 30 MG CAPSULE.DR. PO SCH (09:00)
[2016-06-17] MEDS: LIDOCAINE (700MG/PATCH) PATCH. TD SCH (09:00)
[2016-06-17] MEDS: CALCIUM CARB/VIT D3 500/200 TABLET PO SCH (09:00)
[2016-06-17] MEDS: MULTIVITAMIN with MINERAL TABLET. PO SCH (09:00)
[2016-06-17] MEDS: FLUTICASONE 50MCG/NASAL SPRAY 16GM BOTTLE. NS SCH (09:17)
[2016-06-17] MEDS: INSULIN ASPART 300 UNITS/3 ML INSULN.PEN SQ SCH ×4 (09:21→22:05)
[2016-06-17] MEDS: PANTOPRAZOLE IV PUSH 40 MG VIAL. IVP SCH (09:23)
[2016-06-17 11:00] VITALS: BP 139/66
[2016-06-17] MEDS: TPN PER PHARMACY MC PRN (11:39)
[2016-06-17] MEDS: IV NORMAL SALINE 1000ML BAG 1,000 ML IV SCH (12:28)
--- NOTE | 2016-06-17 13:14 | PDOC ---
Infectious Disease Note Subjective Subjective Lethargic ROS ROS unobtainable Vital Sign Vital Signs Vital Signs Date Time Temp Pulse Resp B/P Pulse Ox O2 Delivery O2 Flow Rate FiO2 06/17/16 08:00 Room Air 06/17/16 07:00 97.6 61 22 146/60 96 2.0 97.6 Physical Exam PHYSICAL EXAM GENERAL: NAD, HEENT: PERRL, eyes focused briefly and then. not OC/OP -dry NECK: Supple, no JVD, no LN LUNGS: Clear HEART: S1S2, no gallop, no murmur ABD: Soft, NT, no organomegaly, no rebound EXT: No edema, no cyanosis IT SALES REPRESENTATIVE: Lethargic, no focal neurologic deficit SKIN: No rash IV: PICC clean Labs Lab Laboratory Tests Test 06/16/16 16:43 06/16/16 21:34 06/17/16 06:20 06/17/16 07:40 Glucose (Fingerstick) 298mg/dL (70-99) 204mg/dL (70-99) 262mg/dL (70-99) Sodium Level 136mmol/L (136-145) Potassium Level 4.1mmol/L (3.5-5.1) Chloride Level 101mmol/L (98-107) Carbon Dioxide Level 26mmol/L (21-32) Anion Gap 9 (6-14) Blood Urea Nitrogen 14mg/dL (7-20) Creatinine 0.7mg/dL (0.6-1.0) Estimated GFR (Cockcroft-Gault) 80.1 Glucose Level 305mg/dL (70-99) Calcium Level 9.0mg/dL (8.5-10.1) Phosphorus Level 2.7mg/dL (2.6-4.7) Magnesium Level 1.9mg/dL (1.8-2.4) Test 06/17/16 11:48 Glucose (Fingerstick) 219mg/dL (70-99) Objective Assessment ? sepsis Leukocytosis, improved Acute encephalopathy, etiology unclear -LP: 06/11. CSF WBC 3, RBC 26, Glucose 122, protein 63.3. WNV neg. No organisms on GS. - HSV PCR negative - Brain MRI w/o contrast performed showed no evidence of CVA this time. Bloody diarrhea. c. diff neg. better ANT. improved Multiple rib fractures post mechanical fall DM Type II CAD h/o CVA Recent UTI on cipro Plan Plan of Care D/c Zosyn /Acyclovir Monitor labs in am D/w daughter ROSIBEL GAY MD Jun 17, 2016 13:13
--- NOTE | 2016-06-17 14:59 | PDOC ---
PROGRESS NOTES Chief Complaint Chief Complaint acute metabolic encephalopathy HSV encephalopathy lab neg 1. Right rib fxs number 6-9 2. Altered Mental Status 3. Leukocytosis 4. H/o GERD 5. 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 Scoliosis 8. HTN 9. Diabetes History of Present Illness History of Present Illness mental status was pretty good yesterday, today she falls asleep after talking for about 20 seconds, does this a few times,. follows commands, but only for a short time snoring loudly, and breath volume has wide variation daughter at bedside, concerns discussed, neuro following, prior seizure and CVA eval was neg Vitals Vitals Vital Signs Date Time Temp Pulse Resp B/P Pulse Ox O2 Delivery O2 Flow Rate FiO2 06/17/16 11:00 96.4 64 22 139/66 94 Nasal Cannula 2.0 96.4 Physical Exam Physical Exam confused, General: Alert, Cooperative, No acute distress, Other ( some oriented 2/3) Heart: Regular rate, Normal S1, Normal S2, No murmurs Lungs: Clear Abdomen: Soft, No masses, Other (Tender, w. some guarding) Extremities: No cyanosis, No edema Skin: No breakdown, No significant lesion Labs LABS Laboratory Tests Test 06/16/16 16:43 06/16/16 21:34 06/17/16 06:20 06/17/16 07:40 Glucose (Fingerstick) 298mg/dL (70-99) 204mg/dL (70-99) 262mg/dL (70-99) Sodium Level 136mmol/L (136-145) Potassium Level 4.1mmol/L (3.5-5.1) Chloride Level 101mmol/L (98-107) Carbon Dioxide Level 26mmol/L (21-32) Anion Gap 9 (6-14) Blood Urea Nitrogen 14mg/dL (7-20) Creatinine 0.7mg/dL (0.6-1.0) Estimated GFR (Cockcroft-Gault) 80.1 Glucose Level 305mg/dL (70-99) Calcium Level 9.0mg/dL (8.5-10.1) Phosphorus Level 2.7mg/dL (2.6-4.7) Magnesium Level 1.9mg/dL (1.8-2.4) Test 06/17/16 11:48 Glucose (Fingerstick) 219mg/dL (70-99) Review of Systems Review of Systems unable to complete Assessment and Plan Assessmemt and Plan Problems Medical Problems: (1) Fall Status: Acute (2) Fall (on) (from) other stairs and steps, initial encounter Status: Acute (3) Ribs, multiple fractures Status: Acute Problems: Comment Review of Relevant I have reviewed the following items quincy (where applicable) has been applied. Labs Laboratory Tests Test 06/15/16 16:24 06/15/16 20:33 06/16/16 04:40 06/16/16 07:27 Glucose (Fingerstick) 198mg/dL (70-99) 160mg/dL (70-99) 235mg/dL (70-99) White Blood Count 9.9x10^3/uL (4.0-11.0) Red Blood Count 4.08x10^6/uL (3.50-5.40) Hemoglobin 12.4g/dL (12.0-15.5) Hematocrit 37.3% (36.0-47.0) Mean Corpuscular Volume 91fL (79-100) Mean Corpuscular Hemoglobin 30pg (25-35) Mean Corpuscular Hemoglobin Concent 33g/dL (31-37) Red Cell Distribution Width 13.0% (11.5-14.5) Platelet Count 280x10^3/uL (140-400) Neutrophils (%) (Auto) 66% (31-73) Lymphocytes (%) (Auto) 20% (24-48) Monocytes (%) (Auto) 10% (0-9) Eosinophils (%) (Auto) 4% (0-3) Basophils (%) (Auto) 1% (0-3) Neutrophils # (Auto) 6.5x10^3uL (1.8-7.7) Lymphocytes # (Auto) 2.0x10^3/uL (1.0-4.8) Monocytes # (Auto) 1.0x10^3/uL (0.0-1.1) Eosinophils # (Auto) 0.4x10^3/uL (0.0-0.7) Basophils # (Auto) 0.1x10^3/uL (0.0-0.2) Sodium Level 136mmol/L (136-145) Potassium Level 4.5mmol/L (3.5-5.1) Chloride Level 101mmol/L (98-107) Carbon Dioxide Level 27mmol/L (21-32) Anion Gap 8 (6-14) Blood Urea Nitrogen 21mg/dL (7-20) Creatinine 0.7mg/dL (0.6-1.0) Estimated GFR (Cockcroft-Gault) 80.1 Glucose Level 261mg/dL (70-99) Calcium Level 8.9mg/dL (8.5-10.1) Phosphorus Level 2.9mg/dL (2.6-4.7) Magnesium Level 2.1mg/dL (1.8-2.4) Triglycerides Level 182mg/dL (0-150) Test 06/16/16 11:29 06/16/16 16:43 06/16/16 21:34 06/17/16 06:20 Glucose (Fingerstick) 237mg/dL (70-99) 298mg/dL (70-99) 204mg/dL (70-99) Sodium Level 136mmol/L (136-145) Potassium Level 4.1mmol/L (3.5-5.1) Chloride Level 101mmol/L (98-107) Carbon Dioxide Level 26mmol/L (21-32) Anion Gap 9 (6-14) Blood Urea Nitrogen 14mg/dL (7-20) Creatinine 0.7mg/dL (0.6-1.0) Estimated GFR (Cockcroft-Gault) 80.1 Glucose Level 305mg/dL (70-99) Calcium Level 9.0mg/dL (8.5-10.1) Phosphorus Level 2.7mg/dL (2.6-4.7) Magnesium Level 1.9mg/dL (1.8-2.4) Test 06/17/16 07:40 06/17/16 11:48 Glucose (Fingerstick) 262mg/dL (70-99) 219mg/dL (70-99) Laboratory Tests Test 06/16/16 16:43 06/16/16 21:34 06/17/16 06:20 06/17/16 07:40 Glucose (Fingerstick) 298mg/dL (70-99) 204mg/dL (70-99) 262mg/dL (70-99) Sodium Level 136mmol/L (136-145) Potassium Level 4.1mmol/L (3.5-5.1) Chloride Level 101mmol/L (98-107) Carbon Dioxide Level 26mmol/L (21-32) Anion Gap 9 (6-14) Blood Urea Nitrogen 14mg/dL (7-20) Creatinine 0.7mg/dL (0.6-1.0) Estimated GFR (Cockcroft-Gault) 80.1 Glucose Level 305mg/dL (70-99) Calcium Level 9.0mg/dL (8.5-10.1) Phosphorus Level 2.7mg/dL (2.6-4.7) Magnesium Level 1.9mg/dL (1.8-2.4) Test 06/17/16 11:48 Glucose (Fingerstick) 219mg/dL (70-99) Microbiology 06/10/16 Blood Culture - Final, Complete NO GROWTH AFTER 5 DAYS 06/11/16 Gram Stain - Final, Complete 06/08/16 Urine Culture - Final, Complete 06/08/16 Urine Culture Result 1 (ALEJO) - Final, Complete Medications Current Medications Lidocaine (Lidoderm) 1 patch 1X ONCE TD Last administered on 06/08/16 09:12; Start 06/08/16 at 09:00; Stop 06/08/16 at 09:01; Status DC Acetaminophen (Tylenol) 1,000 mg 1X ONCE PO Last administered on 06/08/16 09: 12; Start 06/08/16 at 09:00; Stop 06/08/16 at 09:01; Status DC Oxycodone/ Acetaminophen (Percocet 5/325) 1 tab 1X ONCE PO Last administered on 06/08/16 10:00; Start 06/08/16 at 10:00; Stop 06/08/16 at 10:01; Status DC Ondansetron HCl (Zofran) 4 mg PRN Q6HRS PRN IV NAUSEA/VOMITING; Start 06/08/16 at 12:00; Stop 06/12/16 at 09:19; Status DC Al Hydrox/Mg Hydrox/Simethicone (Mylanta Plus Xs) 30 ml PRN Q3HRS PRN PO HEARTBURN / GAS; Start 06/08/16 at 12:00; Stop 06/12/16 at 09:19; Status DC Calcium Carbonate/ Glycine (Tums) 500 mg PRN Q3HRS PRN PO UPSET STOMACH; Start 06/08/16 at 12:00; Stop 06/12/16 at 09:19; Status DC Oxycodone HCl (Roxicodone) 5 mg PRN Q3HRS PRN PO BREAKTHROUGH PAIN; Start at 12:00; Stop 06/12/16 at 09:19; Status DC Morphine Sulfate 1 mg PRN Q2HR PRN IV PAIN; Start 06/08/16 at 12:00; Stop at 09:19; Status DC Oxycodone/ Acetaminophen (Percocet 5/325) 1 tab PRN Q4HRS PRN PO MILD PAIN, 1ST CHOICE Last administered on 06/09/16 15:03; Start 06/08/16 at 12:00; Stop 06/12/16 at 09:19; Status DC Docusate Sodium (Colace) 100 mg BID PO ; Start 06/08/16 at 21:00; Status Cancel Magnesium Hydroxide (Milk Of Magnesia) 2,400 mg PRN Q12HR PRN PO CONSTIPATION; Start 06/08/16 at 12:00; Stop 06/12/16 at 09:19; Status DC Lactulose 20 gm PRN Q12HR PRN PO CONSTIPATION; Start 06/08/16 at 12:00; Stop 06/12/16 at 09:19; Status DC Bisacodyl (Dulcolax Supp) 10 mg PRN DAILY PRN PA CONSTIPATION; Start 06/08/16 at 12:00; Stop 06/12/16 at 09:19; Status DC Enoxaparin Sodium (Lovenox 40mg Syringe) 40 mg DAILY16 SQ Last administered on 06/09/16 15:03; Start 06/08/16 at 16:00; Stop 06/10/16 at 12:52; Status DC Lidocaine (Lidoderm) 1 patch DAILY TD Last administered on 06/09/16 07:41; Start 06/08/16 at 13:00 Aspirin (Children'S Aspirin) 81 mg DAILYWBKFT PO Last administered on 06/09/16 07:41; Start 06/08/16 at 13:00 Docusate Sodium (Colace) 100 mg DAILY PO Last administered on 06/09/16 09:00; Start 06/09/16 at 09:00 Fluticasone Propionate (Flonase) 2 spray DAILY NS Last administered on 09:17; Start 06/08/16 at 13:00 Glipizide (Glucotrol Er) 10 mg DAILY08 PO Last administered on 06/09/16 07:38; Start 06/08/16 at 13:00 Lisinopril (Prinivil) 5 mg DAILY PO Last administered on 06/09/16 07:39; Start 06/08/16 at 13:00 Calcium/Vitamin D (Oscal D 500mg/ 200uts) 1 tab DAILY PO Last administered on 07:39; Start 06/08/16 at 13:00 Fish Oil (Fish Oil) 1,000 mg DAILY PO Last administered on 06/09/16 07:38; Start 06/08/16 at 13:00 Duloxetine HCl (Cymbalta) 60 mg DAILY PO Last administered on 06/09/16 07:40; Start 06/08/16 at 13:00 Famotidine (Pepcid) 40 mg DAILY PO Last administered on 06/09/16 07:40; Start 06/08/16 at 13:00; Stop 06/10/16 at 11:55; Status DC Multivitamins/ Calcium (Thera M Plus) 1 tab DAILY PO Last administered on 07:39; Start 06/08/16 at 13:00 Atorvastatin Calcium (Lipitor) 20 mg QHS PO Last administered on 06/08/16 20:56 ; Start 06/08/16 at 21:00 Insulin Aspart (Novolog) 0-9 UNITS TIDWMEALS SQ Last administered on 06/13/16 17:49; Start 06/08/16 at 12:30; Stop 06/13/16 at 20:54; Status DC Dextrose 12.5 gm PRN Q15MIN PRN IV SEE COMMENTS; Start 06/08/16 at 12:15 Ondansetron HCl 4 mg 4 mg PRN Q8HRS PRN IV NAUSEA/VOMITING; Start 06/08/16 at 12 :45; Stop 06/09/16 at 12:44; Status DC Piperacillin Sod/ Tazobactam Sod/ Sodium Chloride (Zosyn/Iv Sodium Chloride 0.9 % 50ml) 50 ml @ 100 mls/hr Q6HRS IV Last administered on 06/17/16 12:28; Start 06/10/16 at 12:00; Stop 06/17/16 at 13:13; Status DC Pantoprazole Sodium 40 mg 40 mg DAILYAC IVP Last administered on 06/17/16 09: 23; Start 06/10/16 at 11:00 Amino Acids/ Electrolytes/ Dextrose 1,000 ml @ 75 mls/hr [id number] PRN IV . Last administered on 06/14/16 20:34; Start 06/10/16 at 11:00; Stop 06/15/16 at 21:59; Status DC Sodium Chloride (Iv Sodium Chloride 0.9% 1000ml Bag) 1,000 ml @ 50 mls/hr Q20H IV Last administered on 06/17/16 12:28; Start 06/10/16 at 11:00 Naloxone HCl (Narcan) 0.4 mg PRN Q2MIN PRN IV SEE COMMENTS; Start 06/10/16 at 11 :30 Naloxone HCl 0.4 mg 0.4 mg 1X ONCE IV Last administered on 06/10/16 12:07; Start 06/10/16 at 12:00; Stop 06/10/16 at 12:01; Status DC Daptomycin 500 mg/ Sodium Chloride 50 ml @ 100 mls/hr Q24H IV Last administered on 06/10/16 14:56; Start 06/10/16 at 14:00; Stop 06/10/16 at 18:00; Status DC Metronidazole (FLAGYL 500Mmg PREMIX) 100 ml @ 100 mls/hr Q8H IV Last administered on 06/12/16 08:08; Start 06/10/16 at 16:00; Stop 06/12/16 at 09:07; Status DC Lorazepam (Ativan) 1 mg PRN Q4HRS PRN IV ANXIETY / AGITATION Last administered on 06/10/16 17:28; Start 06/10/16 at 17:00; Stop 06/12/16 at 09:19; Status DC Flumazenil 0.1 mg 0.1 mg 1X ONCE IV Last administered on 06/11/16 15:15; Start 06/11/16 at 14:30; Stop 06/11/16 at 14:33; Status DC Acyclovir Sodium/ Dextrose (Zovirax) 262.4 ml @ 262.4 mls/ hr Q8HRS IV Last administered on 06/17/16 05:10; Start 06/13/16 at 09:00; Stop 06/17/16 at 13:13 ; Status DC Alteplase, Recombinant (Cathflo) 2 mg 1X ONCE INT CAT Last administered on 06/13 16:14; Start 06/13/16 at 15:00; Stop 06/13/16 at 15:01; Status DC Insulin Aspart (Novolog) 0-9 UNITS QIDACHS SQ Last administered on 06/17/16 12 :35; Start 06/13/16 at 21:00 Info 1 each 1 each PRN DAILY PRN MC SEE COMMENTS Last administered on 11:39; Start 06/15/16 at 11:00 Sodium Chloride/ Potassium Chloride/ Potassium Phosphate/ Magnesium Sulfate/ Calcium Gluconate/ Multivitamins/ Chromium/Copper/ Manganese/Seleni/ Zn/Total Parenteral Nutrition/Amino Acids/Dextrose/ Fat Emulsion Intravenous (Sodium Chloride/ Potassium Phospha... 1,512 ml @ 63 mls/hr TPN CONT IV Last administered on 06/15/16 21:21; Start 06/15/16 at 22:00; Stop 06/16/16 at 21:59 ; Status DC Saliva Substitute 2 spray 2 spray PRN Q15MIN PRN PO DRY MOUTH; Start 06/16/16 at 11:15 Sodium Chloride/ Potassium Chloride/ Potassium Phosphate/ Magnesium Sulfate/ Calcium Gluconate/ Multivitamins/ Chromium/Copper/ Manganese/Seleni/ Zn/Total Parenteral Nutrition/Amino Acids/Dextrose/ Fat Emulsion Intravenous (Sodium Chloride/ Potassium Phospha... 1,512 ml @ 63 mls/hr TPN CONT IV Last administered on 06/16/16 22:11; Start 06/16/16 at 22:00; Stop 06/17/16 at 21:59 Insulin Detemir (Levemir) 8 units 1X ONCE SQ ; Start 06/16/16 at 15:00; Stop at 15:00; Status DC Insulin Detemir 12 units 12 units 1X ONCE SQ Last administered on 06/16/16t 16 :31; Start 06/16/16 at 15:30; Stop 06/16/16 at 15:31; Status DC Sodium Chloride/ Potassium Chloride/ Potassium Phosphate/ Magnesium Sulfate/ Calcium Gluconate/ Multivitamins/ Chromium/Copper/ Manganese/Seleni/ Zn/Total Parenteral Nutrition/Amino Acids/Dextrose/ Fat Emulsion Intravenous (Sodium Chloride/ Potassium Phospha... 1,512 ml @ 63 mls/hr TPN CONT IV ; Start at 22:00; Stop 06/18/16 at 21:59 Active Scripts Active Ciprofloxacin 250 Mg/5 Ml Christina.mc.rec 250 Mg PO BID Children's Aspirin (Aspirin) 81 Mg Tab.chew 81 Mg PO DAILYWBKFT 30 Days Glipizide Er (Glipizide) 5 Mg Tab.er.24 10 Mg PO DAILY Reported Pravachol (Pravastatin Sodium) 80 Mg Tablet 80 Mg PO DAILY Multi-Vitamin Daily (Multivitamin) 1 Each Tablet 1 Each PO DAILY Lisinopril 5 Mg Tablet 5 Mg PO DAILY Flonase (Fluticasone Propionate) 16 Gm Esmond.susp 2 Esmond NS DAILY Famotidine 40 Mg Tablet 40 Mg PO DAILY Cymbalta (Duloxetine Hcl) 60 Mg Capsule.dr 60 Mg PO DAILY Docusate Sodium 100 Mg Capsule 100 Mg PO DAILY Fish Oil Concentrate Softgel (Docosahexanoic Acid/Epa) 1 Each Capsule 1 Each PO DAILY Caltrate 600 + D Tablet (Calcium Carbonate/Vitamin D3) 1 Each Tablet 1 Each PO DAILY Vitals/I & O Vital Sign - Last 24 Hours 06/16/16 06/16/16 06/16/16 06/17/16 19:00 19:30 23:00 03:00 Temp 98.5 96.4 97.3 98.5 96.4 97.3 Pulse 68 68 73 Resp 21 24 20 B/P 142/64 137/52 142/67 Pulse Ox 97 96 92 O2 Delivery Nasal Cannula Nasal Cannula Nasal Cannula O2 Flow Rate 2.0 2.0 2.0 06/17/16 06/17/16 06/17/16 07:00 08:00 11:00 Temp 97.6 96.4 97.6 96.4 Pulse 61 64 Resp 22 22 B/P 146/60 139/66 Pulse Ox 96 94 O2 Delivery Nasal Cannula Room Air Nasal Cannula O2 Flow Rate 2.0 2.0 Intake and Output 06/16/16 06/16/16 06/17/16 15:00 23:00 07:00 Intake Total 2490 ml Balance 2490 ml TAI CELESTE MD Jun 17, 2016 14:59
[2016-06-17 15:00] VITALS: BP 164/71
[2016-06-17 19:00] VITALS: BP 154/61
[2016-06-17] MEDS: ATORVASTATIN CALCIUM 20 MG TABLET PO SCH (21:00)
[2016-06-17] MEDS ORDERED: TOTAL PARENTERAL NUTRITION 1,424.9987 ML, AMINO ACIDS 10 % 60 GM, DEXTROSE 70 % IN WATE... IV SCH ×10 (22:00)
[2016-06-17 23:19] VITALS: BP 184/58
[2016-06-18 03:20] VITALS: BP 153/50
[2016-06-18 06:22] LABS: BASO # 0.1 x10^3/uL (0.0-0.2); BASO % 1 % (0-3); EOS % 2 % (0-3); HEMATOCRIT 38.3 % (36.0-47.0); HEMOGLOBIN 12.5 g/dL (12.0-15.5); LYMPH # 2.3 x10^3/uL (1.0-4.8); LYMPH % 20 % (24-48); MEAN CORPUSCULAR HEMOGLOBIN 31 pg (25-35); MEAN CORPUSCULAR HGB CONC 33 g/dL (31-37); MEAN CORPUSCULAR VOLUME 93 fL (79-100); MONO % 7 % (0-9); NEUT % 70 % (31-73); PLATELET COUNT 338 x10^3/uL (140-400); RED BLOOD COUNT 4.11 x10^6/uL (3.50-5.40); WHITE BLOOD COUNT 11.3 x10^3/uL (4.0-11.0)
[2016-06-18 06:33] LABS: CALCIUM 9.3 mg/dL (8.5-10.1); CREATININE 0.6 mg/dL (0.6-1.0); GFR 95.7; PHOSPHORUS 2.9 mg/dL (2.6-4.7); POTASSIUM 4.7 mmol/L (3.5-5.1)
[2016-06-18 06:36] LABS: ALBUMIN 2.2 g/dL (3.4-5.0); DIRECT BILIRUBIN 0.1 mg/dL (0.0-0.2); TOTAL BILIRUBIN 0.3 mg/dL (0.2-1.0); TOTAL PROTEIN 6.8 g/dL (6.4-8.2)
[2016-06-18 07:00] VITALS: BP 164/58
[2016-06-18] MEDS: GLIPIZIDE ER 5 MG TAB.ER.24 PO SCH (08:00)
[2016-06-18] MEDS: ASPIRIN 81 MG TAB.CHEW PO SCH (08:00)
[2016-06-18] MEDS: FLUTICASONE 50MCG/NASAL SPRAY 16GM BOTTLE. NS SCH (08:14)
[2016-06-18] MEDS: OMEGA-3 FATTY ACIDS/FISH OIL 1,000 MG CAPSULE. PO SCH (08:14)
[2016-06-18] MEDS: DULOXETINE HCL 30 MG CAPSULE.DR. PO SCH (08:14)
[2016-06-18] MEDS: DOCUSATE SODIUM 100 MG CAPSULE PO SCH (08:14)
[2016-06-18] MEDS: CALCIUM CARB/VIT D3 500/200 TABLET PO SCH (08:15)
[2016-06-18] MEDS: MULTIVITAMIN with MINERAL TABLET. PO SCH (08:15)
[2016-06-18] MEDS: LIDOCAINE (700MG/PATCH) PATCH. TD SCH (08:15)
[2016-06-18] MEDS: LISINOPRIL 5 MG TABLET. PO SCH (08:15)
[2016-06-18] MEDS: PANTOPRAZOLE IV PUSH 40 MG VIAL. IVP SCH (09:10)
[2016-06-18] MEDS: IV NORMAL SALINE 1000ML BAG 1,000 ML IV SCH (09:10)
[2016-06-18] MEDS: INSULIN ASPART 300 UNITS/3 ML INSULN.PEN SQ SCH ×4 (09:15→21:39)
[2016-06-18] MEDS ORDERED: methylPREDNISolone SOD SUCC PF 125 MG/2 ML VIAL. IV ONE (09:45)
--- NOTE | 2016-06-18 09:45 | PDOC ---
Infectious Disease Note Subjective Subjective Lethargic. Mumbled when eyes were opened ROS ROS Unobtainable Vital Sign Vital Signs Vital Signs Date Time Temp Pulse Resp B/P Pulse Ox O2 Delivery O2 Flow Rate FiO2 06/18/16 08:00 Room Air 06/18/16 07:00 97.4 60 14 164/58 95 97.4 06/17/16 19:00 2.0 Physical Exam PHYSICAL EXAM GENERAL: NAD, Lethargic HEENT: PERRL, OC/OP -clear NECK: Supple, no JVD, no LN LUNGS: Clear HEART: S1S2, no gallop, no murmur ABD: Soft, NT, no organomegaly, no rebound EXT: No edema, no cyanosis NUMERICAL CONTROL MACHINE OPERATOR: Alert, oriented x 3, no focal neurologic deficit SKIN: No rash IV: ok Labs Lab Laboratory Tests Test 06/17/16 11:48 06/17/16 16:22 06/17/16 21:01 06/18/16 06:00 Glucose (Fingerstick) 219mg/dL (70-99) 193mg/dL (70-99) 214mg/dL (70-99) White Blood Count 11.3x10^3/uL (4.0-11.0) Red Blood Count 4.11x10^6/uL (3.50-5.40) Hemoglobin 12.5g/dL (12.0-15.5) Hematocrit 38.3% (36.0-47.0) Mean Corpuscular Volume 93fL (79-100) Mean Corpuscular Hemoglobin 31pg (25-35) Mean Corpuscular Hemoglobin Concent 33g/dL (31-37) Red Cell Distribution Width 13.0% (11.5-14.5) Platelet Count 338x10^3/uL (140-400) Neutrophils (%) (Auto) 70% (31-73) Lymphocytes (%) (Auto) 20% (24-48) Monocytes (%) (Auto) 7% (0-9) Eosinophils (%) (Auto) 2% (0-3) Basophils (%) (Auto) 1% (0-3) Neutrophils # (Auto) 7.8x10^3uL (1.8-7.7) Lymphocytes # (Auto) 2.3x10^3/uL (1.0-4.8) Monocytes # (Auto) 0.8x10^3/uL (0.0-1.1) Eosinophils # (Auto) 0.2x10^3/uL (0.0-0.7) Basophils # (Auto) 0.1x10^3/uL (0.0-0.2) Sodium Level 137mmol/L (136-145) Potassium Level 4.7mmol/L (3.5-5.1) Chloride Level 102mmol/L (98-107) Carbon Dioxide Level 27mmol/L (21-32) Anion Gap 8 (6-14) Blood Urea Nitrogen 14mg/dL (7-20) Creatinine 0.6mg/dL (0.6-1.0) Estimated GFR (Cockcroft-Gault) 95.7 Glucose Level 261mg/dL (70-99) Calcium Level 9.3mg/dL (8.5-10.1) Phosphorus Level 2.9mg/dL (2.6-4.7) Magnesium Level 2.0mg/dL (1.8-2.4) Total Bilirubin 0.3mg/dL (0.2-1.0) Direct Bilirubin 0.1mg/dL (0.0-0.2) Aspartate Amino Transf (AST/SGOT) 19U/L (15-37) Alanine Aminotransferase (ALT/SGPT) 20U/L (14-59) Alkaline Phosphatase 79U/L (46-116) Total Protein 6.8g/dL (6.4-8.2) Albumin 2.2g/dL (3.4-5.0) Test 06/18/16 08:09 Glucose (Fingerstick) 251mg/dL (70-99) Objective Assessment ? sepsis Leukocytosis mild increase today Acute encephalopathy, etiology unclear -LP: 06/11. CSF WBC 3, RBC 26, Glucose 122, protein 63.3. WNV neg. No organisms on GS. - HSV PCR negative - Brain MRI w/o contrast performed showed no evidence of CVA this time. Bloody diarrhea. c. diff neg. Colitis on CT ANT. improved Multiple rib fractures post mechanical fall DM Type II CAD h/o CVA Recent UTI on cipro Plan Plan of Care Cont off abx Monitor labs in am Sed rate/Procalcitonin this am May need repeat CT chest/abd/pelvis with dobhoff and contrast Trial of steroid times one ROSIBEL GAY MD Jun 18, 2016 09:45
--- NOTE | 2016-06-18 09:53 | PDOC ---
PROGRESS NOTES Assessment Problems Medical Problems: (1) Fall Status: Acute (2) Fall (on) (from) other stairs and steps, initial encounter Status: Acute (3) Ribs, multiple fractures Status: Acute Metabolic encephalopathy. No sign of HSV encephalitis Plan of Care: Continue current Tx, Mgmt Subjective She denies pain Objective Vital Signs Date Time Temp Pulse Resp B/P Pulse Ox O2 Delivery O2 Flow Rate FiO2 06/18/16 08:00 Room Air 06/18/16 07:00 97.4 60 14 164/58 95 97.4 06/17/16 19:00 2.0 Intake and Output 06/18/16 07:00 Intake Total 2912 ml Balance 2912 ml Intake Oral 0 ml IV Total 1356 ml Other 1556 ml # Voids 9 PHYSICAL EXAM Alert. Does not know location, knows month. PERRL. EOMI. CN: no focal findings. Muscle tone: normal. Muscle strength: 4/5 DTR: 1+ Plantar reflex: flexor Gait: not examined in bed. Sensory exam: no abnormal findings. No cerebellar signs elicited. Review of Relevant I have reviewed the following items quincy (where applicable) has been applied. Labs Laboratory Tests Test 06/16/16 11:29 06/16/16 16:43 06/16/16 21:34 06/17/16 06:20 Glucose (Fingerstick) 237mg/dL (70-99) 298mg/dL (70-99) 204mg/dL (70-99) Sodium Level 136mmol/L (136-145) Potassium Level 4.1mmol/L (3.5-5.1) Chloride Level 101mmol/L (98-107) Carbon Dioxide Level 26mmol/L (21-32) Anion Gap 9 (6-14) Blood Urea Nitrogen 14mg/dL (7-20) Creatinine 0.7mg/dL (0.6-1.0) Estimated GFR (Cockcroft-Gault) 80.1 Glucose Level 305mg/dL (70-99) Calcium Level 9.0mg/dL (8.5-10.1) Phosphorus Level 2.7mg/dL (2.6-4.7) Magnesium Level 1.9mg/dL (1.8-2.4) Test 06/17/16 07:40 06/17/16 11:48 06/17/16 16:22 06/17/16 21:01 Glucose (Fingerstick) 262mg/dL (70-99) 219mg/dL (70-99) 193mg/dL (70-99) 214mg/dL (70-99) Test 06/18/16 06:00 06/18/16 08:09 White Blood Count 11.3x10^3/uL (4.0-11.0) Red Blood Count 4.11x10^6/uL (3.50-5.40) Hemoglobin 12.5g/dL (12.0-15.5) Hematocrit 38.3% (36.0-47.0) Mean Corpuscular Volume 93fL (79-100) Mean Corpuscular Hemoglobin 31pg (25-35) Mean Corpuscular Hemoglobin Concent 33g/dL (31-37) Red Cell Distribution Width 13.0% (11.5-14.5) Platelet Count 338x10^3/uL (140-400) Neutrophils (%) (Auto) 70% (31-73) Lymphocytes (%) (Auto) 20% (24-48) Monocytes (%) (Auto) 7% (0-9) Eosinophils (%) (Auto) 2% (0-3) Basophils (%) (Auto) 1% (0-3) Neutrophils # (Auto) 7.8x10^3uL (1.8-7.7) Lymphocytes # (Auto) 2.3x10^3/uL (1.0-4.8) Monocytes # (Auto) 0.8x10^3/uL (0.0-1.1) Eosinophils # (Auto) 0.2x10^3/uL (0.0-0.7) Basophils # (Auto) 0.1x10^3/uL (0.0-0.2) Sodium Level 137mmol/L (136-145) Potassium Level 4.7mmol/L (3.5-5.1) Chloride Level 102mmol/L (98-107) Carbon Dioxide Level 27mmol/L (21-32) Anion Gap 8 (6-14) Blood Urea Nitrogen 14mg/dL (7-20) Creatinine 0.6mg/dL (0.6-1.0) Estimated GFR (Cockcroft-Gault) 95.7 Glucose Level 261mg/dL (70-99) Calcium Level 9.3mg/dL (8.5-10.1) Phosphorus Level 2.9mg/dL (2.6-4.7) Magnesium Level 2.0mg/dL (1.8-2.4) Total Bilirubin 0.3mg/dL (0.2-1.0) Direct Bilirubin 0.1mg/dL (0.0-0.2) Aspartate Amino Transf (AST/SGOT) 19U/L (15-37) Alanine Aminotransferase (ALT/SGPT) 20U/L (14-59) Alkaline Phosphatase 79U/L (46-116) Total Protein 6.8g/dL (6.4-8.2) Albumin 2.2g/dL (3.4-5.0) Glucose (Fingerstick) 251mg/dL (70-99) Laboratory Tests Test 06/17/16 11:48 06/17/16 16:22 06/17/16 21:01 06/18/16 06:00 Glucose (Fingerstick) 219mg/dL (70-99) 193mg/dL (70-99) 214mg/dL (70-99) White Blood Count 11.3x10^3/uL (4.0-11.0) Red Blood Count 4.11x10^6/uL (3.50-5.40) Hemoglobin 12.5g/dL (12.0-15.5) Hematocrit 38.3% (36.0-47.0) Mean Corpuscular Volume 93fL (79-100) Mean Corpuscular Hemoglobin 31pg (25-35) Mean Corpuscular Hemoglobin Concent 33g/dL (31-37) Red Cell Distribution Width 13.0% (11.5-14.5) Platelet Count 338x10^3/uL (140-400) Neutrophils (%) (Auto) 70% (31-73) Lymphocytes (%) (Auto) 20% (24-48) Monocytes (%) (Auto) 7% (0-9) Eosinophils (%) (Auto) 2% (0-3) Basophils (%) (Auto) 1% (0-3) Neutrophils # (Auto) 7.8x10^3uL (1.8-7.7) Lymphocytes # (Auto) 2.3x10^3/uL (1.0-4.8) Monocytes # (Auto) 0.8x10^3/uL (0.0-1.1) Eosinophils # (Auto) 0.2x10^3/uL (0.0-0.7) Basophils # (Auto) 0.1x10^3/uL (0.0-0.2) Sodium Level 137mmol/L (136-145) Potassium Level 4.7mmol/L (3.5-5.1) Chloride Level 102mmol/L (98-107) Carbon Dioxide Level 27mmol/L (21-32) Anion Gap 8 (6-14) Blood Urea Nitrogen 14mg/dL (7-20) Creatinine 0.6mg/dL (0.6-1.0) Estimated GFR (Cockcroft-Gault) 95.7 Glucose Level 261mg/dL (70-99) Calcium Level 9.3mg/dL (8.5-10.1) Phosphorus Level 2.9mg/dL (2.6-4.7) Magnesium Level 2.0mg/dL (1.8-2.4) Total Bilirubin 0.3mg/dL (0.2-1.0) Direct Bilirubin 0.1mg/dL (0.0-0.2) Aspartate Amino Transf (AST/SGOT) 19U/L (15-37) Alanine Aminotransferase (ALT/SGPT) 20U/L (14-59) Alkaline Phosphatase 79U/L (46-116) Total Protein 6.8g/dL (6.4-8.2) Albumin 2.2g/dL (3.4-5.0) Test 06/18/16 08:09 Glucose (Fingerstick) 251mg/dL (70-99) Microbiology 06/10/16 Blood Culture - Final, Complete NO GROWTH AFTER 5 DAYS 06/11/16 Gram Stain - Final, Complete 06/08/16 Urine Culture - Final, Complete 06/08/16 Urine Culture Result 1 (ALEJO) - Final, Complete Medications Current Medications Lidocaine (Lidoderm) 1 patch 1X ONCE TD Last administered on 06/08/16t 09:12; Start 06/08/16 at 09:00; Stop 06/08/16 at 09:01; Status DC Acetaminophen (Tylenol) 1,000 mg 1X ONCE PO Last administered on 06/08/16 09: 12; Start 06/08/16 at 09:00; Stop 06/08/16 at 09:01; Status DC Oxycodone/ Acetaminophen (Percocet 5/325) 1 tab 1X ONCE PO Last administered on 06/08/16 10:00; Start 06/08/16 at 10:00; Stop 06/08/16 at 10:01; Status DC Ondansetron HCl (Zofran) 4 mg PRN Q6HRS PRN IV NAUSEA/VOMITING; Start 06/08/16 at 12:00; Stop 06/12/16 at 09:19; Status DC Al Hydrox/Mg Hydrox/Simethicone (Mylanta Plus Xs) 30 ml PRN Q3HRS PRN PO HEARTBURN / GAS; Start 06/08/16 at 12:00; Stop 06/12/16 at 09:19; Status DC Calcium Carbonate/ Glycine (Tums) 500 mg PRN Q3HRS PRN PO UPSET STOMACH; Start 06/08/16 at 12:00; Stop 06/12/16 at 09:19; Status DC Oxycodone HCl (Roxicodone) 5 mg PRN Q3HRS PRN PO BREAKTHROUGH PAIN; Start at 12:00; Stop 06/12/16 at 09:19; Status DC Morphine Sulfate 1 mg PRN Q2HR PRN IV PAIN; Start 06/08/16 at 12:00; Stop at 09:19; Status DC Oxycodone/ Acetaminophen (Percocet 5/325) 1 tab PRN Q4HRS PRN PO MILD PAIN, 1ST CHOICE Last administered on 06/09/16 15:03; Start 06/08/16 at 12:00; Stop 06/12/16 at 09:19; Status DC Docusate Sodium (Colace) 100 mg BID PO ; Start 06/08/16 at 21:00; Status Cancel Magnesium Hydroxide (Milk Of Magnesia) 2,400 mg PRN Q12HR PRN PO CONSTIPATION; Start 06/08/16 at 12:00; Stop 06/12/16 at 09:19; Status DC Lactulose 20 gm PRN Q12HR PRN PO CONSTIPATION; Start 06/08/16 at 12:00; Stop 06/12/16 at 09:19; Status DC Bisacodyl (Dulcolax Supp) 10 mg PRN DAILY PRN [place] CONSTIPATION; Start 06/08/16 at 12:00; Stop 06/12/16 at 09:19; Status DC Enoxaparin Sodium (Lovenox 40mg Syringe) 40 mg DAILY16 SQ Last administered on 06/09/16 15:03; Start 06/08/16 at 16:00; Stop 06/10/16 at 12:52; Status DC Lidocaine (Lidoderm) 1 patch DAILY TD Last administered on 06/09/16 07:41; Start 06/08/16 at 13:00 Aspirin (Children'S Aspirin) 81 mg DAILYWBKFT PO Last administered on 06/09/16 07:41; Start 06/08/16 at 13:00 Docusate Sodium (Colace) 100 mg DAILY PO Last administered on 06/09/16 09:00; Start 06/09/16 at 09:00 Fluticasone Propionate (Flonase) 2 spray DAILY NS Last administered on 09:17; Start 06/08/16 at 13:00 Glipizide (Glucotrol Er) 10 mg DAILY08 PO Last administered on 06/09/16 07:38; Start 06/08/16 at 13:00 Lisinopril (Prinivil) 5 mg DAILY PO Last administered on 06/09/16 07:39; Start 06/08/16 at 13:00 Calcium/Vitamin D (Oscal D 500mg/ 200uts) 1 tab DAILY PO Last administered on 07:39; Start 06/08/16 at 13:00 Fish Oil (Fish Oil) 1,000 mg DAILY PO Last administered on 06/09/16 07:38; Start 06/08/16 at 13:00 Duloxetine HCl (Cymbalta) 60 mg DAILY PO Last administered on 06/09/16 07:40; Start 06/08/16 at 13:00 Famotidine (Pepcid) 40 mg DAILY PO Last administered on 06/09/16 07:40; Start 06/08/16 at 13:00; Stop 06/10/16 at 11:55; Status DC Multivitamins/ Calcium (Thera M Plus) 1 tab DAILY PO Last administered on 07:39; Start 06/08/16 at 13:00 Atorvastatin Calcium (Lipitor) 20 mg QHS PO Last administered on 06/08/16 20:56 ; Start 06/08/16 at 21:00 Insulin Aspart (Novolog) 0-9 UNITS TIDWMEALS SQ Last administered on 06/13/16 17:49; Start 06/08/16 at 12:30; Stop 06/13/16 at 20:54; Status DC Dextrose 12.5 gm PRN Q15MIN PRN IV SEE COMMENTS; Start 06/08/16 at 12:15 Ondansetron HCl 4 mg 4 mg PRN Q8HRS PRN IV NAUSEA/VOMITING; Start 06/08/16 at 12 :45; Stop 06/09/16 at 12:44; Status DC Piperacillin Sod/ Tazobactam Sod/ Sodium Chloride (Zosyn/Iv Sodium Chloride 0.9 % 50ml) 50 ml @ 100 mls/hr Q6HRS IV Last administered on 06/17/16 12:28; Start 06/10/16 at 12:00; Stop 06/17/16 at 13:13; Status DC Pantoprazole Sodium 40 mg 40 mg DAILYAC IVP Last administered on 06/18/16 09: 10; Start 06/10/16 at 11:00 Amino Acids/ Electrolytes/ Dextrose 1,000 ml @ 75 mls/hr [id number] PRN IV . Last administered on 06/14/16 20:34; Start 06/10/16 at 11:00; Stop 06/15/16 at 21:59; Status DC Sodium Chloride (Iv Sodium Chloride 0.9% 1000ml Bag) 1,000 ml @ 50 mls/hr Q20H IV Last administered on 06/18/16 09:10; Start 06/10/16 at 11:00 Naloxone HCl (Narcan) 0.4 mg PRN Q2MIN PRN IV SEE COMMENTS; Start 06/10/16 at 11 :30 Naloxone HCl 0.4 mg 0.4 mg 1X ONCE IV Last administered on 06/10/16 12:07; Start 06/10/16 at 12:00; Stop 06/10/16 at 12:01; Status DC Daptomycin 500 mg/ Sodium Chloride 50 ml @ 100 mls/hr Q24H IV Last administered on 06/10/16 14:56; Start 06/10/16 at 14:00; Stop 06/10/16 at 18:00; Status DC Metronidazole (FLAGYL 500Mmg PREMIX) 100 ml @ 100 mls/hr Q8H IV Last administered on 06/12/16 08:08; Start 06/10/16 at 16:00; Stop 06/12/16 at 09:07; Status DC Lorazepam (Ativan) 1 mg PRN Q4HRS PRN IV ANXIETY / AGITATION Last administered on 06/10/16 17:28; Start 06/10/16 at 17:00; Stop 06/12/16 at 09:19; Status DC Flumazenil 0.1 mg 0.1 mg 1X ONCE IV Last administered on 06/11/16 15:15; Start 06/11/16 at 14:30; Stop 06/11/16 at 14:33; Status DC Acyclovir Sodium/ Dextrose (Zovirax) 262.4 ml @ 262.4 mls/ hr Q8HRS IV Last administered on 06/17/16 05:10; Start 06/13/16 at 09:00; Stop 06/17/16 at 13:13 ; Status DC Alteplase, Recombinant (Cathflo) 2 mg 1X ONCE INT CAT Last administered on 06/13 16:14; Start 06/13/16 at 15:00; Stop 06/13/16 at 15:01; Status DC Insulin Aspart (Novolog) 0-9 UNITS QIDACHS SQ Last administered on 06/18/16 09 :15; Start 06/13/16 at 21:00 Info 1 each 1 each PRN DAILY PRN MC SEE COMMENTS Last administered on 11:39; Start 06/15/16 at 11:00 Sodium Chloride/ Potassium Chloride/ Potassium Phosphate/ Magnesium Sulfate/ Calcium Gluconate/ Multivitamins/ Chromium/Copper/ Manganese/Seleni/ Zn/Total Parenteral Nutrition/Amino Acids/Dextrose/ Fat Emulsion Intravenous (Sodium Chloride/ Potassium Phospha... 1,512 ml @ 63 mls/hr TPN CONT IV Last administered on 06/15/16 21:21; Start 06/15/16 at 22:00; Stop 06/16/16 at 21:59 ; Status DC Saliva Substitute 2 spray 2 spray PRN Q15MIN PRN PO DRY MOUTH; Start 06/16/16 at 11:15 Sodium Chloride/ Potassium Chloride/ Potassium Phosphate/ Magnesium Sulfate/ Calcium Gluconate/ Multivitamins/ Chromium/Copper/ Manganese/Seleni/ Zn/Total Parenteral Nutrition/Amino Acids/Dextrose/ Fat Emulsion Intravenous (Sodium Chloride/ Potassium Phospha... 1,512 ml @ 63 mls/hr TPN CONT IV Last administered on 06/16/16 22:11; Start 06/16/16 at 22:00; Stop 06/17/16 at 21:59 ; Status DC Insulin Detemir (Levemir) 8 units 1X ONCE SQ ; Start 06/16/16 at 15:00; Stop at 15:00; Status DC Insulin Detemir 12 units 12 units 1X ONCE SQ Last administered on 06/16/16 16 :31; Start 06/16/16 at 15:30; Stop 06/16/16 at 15:31; Status DC Sodium Chloride/ Potassium Chloride/ Potassium Phosphate/ Magnesium Sulfate/ Calcium Gluconate/ Multivitamins/ Chromium/Copper/ Manganese/Seleni/ Zn/Total Parenteral Nutrition/Amino Acids/Dextrose/ Fat Emulsion Intravenous (Sodium Chloride/ Potassium Phospha... 1,512 ml @ 63 mls/hr TPN CONT IV Last administered on 06/17/16 22:01; Start 06/17/16 at 22:00; Stop 06/18/16 at 21:59 Methylprednisolone Sodium Succinate (Solu-Medrol 125mg Vial) 125 mg 1X ONCE IV ; Start 06/18/16 at 09:45; Stop 06/18/16 at 09:46; Status DC Active Scripts Active Ciprofloxacin 250 Mg/5 Ml Christina.mc.rec 250 Mg PO BID Children's Aspirin (Aspirin) 81 Mg Tab.chew 81 Mg PO DAILYWBKFT 30 Days Glipizide Er (Glipizide) 5 Mg Tab.er.24 10 Mg PO DAILY Reported Pravachol (Pravastatin Sodium) 80 Mg Tablet 80 Mg PO DAILY Multi-Vitamin Daily (Multivitamin) 1 Each Tablet 1 Each PO DAILY Lisinopril 5 Mg Tablet 5 Mg PO DAILY Flonase (Fluticasone Propionate) 16 Gm [place].susp 2 [place] NS DAILY Famotidine 40 Mg Tablet 40 Mg PO DAILY Cymbalta (Duloxetine Hcl) 60 Mg Capsule.dr 60 Mg PO DAILY Docusate Sodium 100 Mg Capsule 100 Mg PO DAILY Fish Oil Concentrate Softgel (Docosahexanoic Acid/Epa) 1 Each Capsule 1 Each PO DAILY Caltrate 600 + D Tablet (Calcium Carbonate/Vitamin D3) 1 Each Tablet 1 Each PO DAILY Vitals/I & O Vital Sign - Last 24 Hours 06/17/16 06/17/16 06/17/16 06/17/16 11:00 15:00 19:00 19:50 Temp 96.4 98.1 97.7 96.4 98.1 97.7 Pulse 64 75 59 Resp 22 20 18 B/P 139/66 164/71 154/61 Pulse Ox 94 96 98 O2 Delivery Nasal Cannula Nasal Cannula Nasal Cannula Room Air O2 Flow Rate 2.0 2.0 2.0 06/17/16 06/18/16 06/18/16 06/18/16 23:19 03:20 07:00 08:00 Temp 98.6 98.1 97.4 98.6 98.1 97.4 Pulse 76 66 60 Resp 18 18 14 B/P 184/58 153/50 164/58 Pulse Ox 95 96 95 O2 Delivery Room Air Room Air Room Air Room Air Intake and Output 06/17/16 06/17/16 06/18/16 15:00 23:00 07:00 Intake Total 2912 ml Balance 2912 ml YOSVANY JENSEN MD Jun 18, 2016 09:53
[2016-06-18 11:00] VITALS: BP 137/51
[2016-06-18] MEDS: TPN PER PHARMACY MC PRN (11:22)
--- NOTE | 2016-06-18 12:02 | PDOC ---
Objective: Vital Signs: Vital Signs Date Time Temp Pulse Resp B/P Pulse Ox O2 Delivery O2 Flow Rate FiO2 06/18/16 11:00 98.2 64 14 137/51 96 Room Air 98.2 06/17/16 19:00 2.0 Labs: Laboratory Tests Test 06/17/16 16:22 06/17/16 21:01 06/18/16 06:00 06/18/16 08:09 Glucose (Fingerstick) 193mg/dL 214mg/dL 251mg/dL White Blood Count 11.3x10^3/uL Red Blood Count 4.11x10^6/uL Hemoglobin 12.5g/dL Hematocrit 38.3% Mean Corpuscular Volume 93fL Mean Corpuscular Hemoglobin 31pg Mean Corpuscular Hemoglobin Concent 33g/dL Red Cell Distribution Width 13.0% Platelet Count 338x10^3/uL Neutrophils (%) (Auto) 70% Lymphocytes (%) (Auto) 20% Monocytes (%) (Auto) 7% Eosinophils (%) (Auto) 2% Basophils (%) (Auto) 1% Neutrophils # (Auto) 7.8x10^3uL Lymphocytes # (Auto) 2.3x10^3/uL Monocytes # (Auto) 0.8x10^3/uL Eosinophils # (Auto) 0.2x10^3/uL Basophils # (Auto) 0.1x10^3/uL Erythrocyte Sedimentation Rate 69 Sodium Level 137mmol/L Potassium Level 4.7mmol/L Chloride Level 102mmol/L Carbon Dioxide Level 27mmol/L Anion Gap 8 Blood Urea Nitrogen 14mg/dL Creatinine 0.6mg/dL Estimated GFR (Cockcroft-Gault) 95.7 Glucose Level 261mg/dL Calcium Level 9.3mg/dL Phosphorus Level 2.9mg/dL Magnesium Level 2.0mg/dL Total Bilirubin 0.3mg/dL Direct Bilirubin 0.1mg/dL Aspartate Amino Transf (AST/SGOT) 19U/L Alanine Aminotransferase (ALT/SGPT) 20U/L Alkaline Phosphatase 79U/L Total Protein 6.8g/dL Albumin 2.2g/dL Procalcitonin 0.24ng/mL Test 06/18/16 11:02 Glucose (Fingerstick) 232mg/dL PE: GEN: NAD, asleep when I walked in LUNGS: CTAB HEART: RRR ABD: BS+, grimaces and pushes my hand away w/ LLQ palpation NEURO/PSYCH: improved a little compared to last week - knows she's at the hospital, correct year A/P: Rectal bleeding, possible ischemic colitis -Hgb stable Encephalopathy, leukocytosis -ID gave steroid x 1, ?CT later -- Will review w/ Dr. Gregory. VOI LAKHANI Jun 18, 2016 12:02
[2016-06-18 15:00] VITALS: BP 155/68
--- NOTE | 2016-06-18 15:09 | PDOC2 ---
PALLIATIVE CARE Palliative Care Note Palliative Care Consult requested by Dr. Monsivais to address goals of care Diagnosis: fall at home --fx. 6-9 ribs; encephalopathy; leukocytosis;GERD;DM; hx CVA and multiple UTI. Patient awakes for short periods of time. Oriented to place. Spoke with daughter Denisa; and son . Reviewed medical condition. Patient lives at [facility]. one month ago patient was watching TV; short term memory loss but was able to have conversations with family. feed the dog. Patient manuel important to her. Was a Sales And Catering Coordinator for 30 years Per daughter she would not want to "stuck on life support with no chance of recovery." Not sure if she has an AD Had said in the ER that she wanted everything done. Daughter concerned that it may be in response to her conversation about it was "just her and me." Daughter would like to talk with her family more before making any decision. Options discussed were: Full Aggressive care vs comfort care vs limitation such as DNR/DNI with continued current treatment plan to see if she would improve. Denisa was provided a list of Nursing Facilities to visit by [facility]. She is considering SNU with possible Deck Officer [facility] to follow. Plan: Continue current treatment plan After speaking with her family she will inform staff of any limitations in care she would like to have. VIKTORIA MCRAE Jun 18, 2016 15:08
--- NOTE | 2016-06-18 16:09 | PDOC ---
PULMONARY PROGRESS NOTES Subjective awake no soa Vitals Vital Signs Date Time Temp Pulse Resp B/P Pulse Ox O2 Delivery O2 Flow Rate FiO2 06/18/16 11:00 98.2 64 14 137/51 96 Room Air 98.2 06/17/16 19:00 2.0 General: Alert, No acute distress HEENT: Other Lungs: Clear Cardiovascular: S1, S2 Abdomen: Soft Neuro Exam: Alert Extremities: No Edema Skin: Warm Labs Laboratory Tests Test 06/16/16 16:43 06/16/16 21:34 06/17/16 06:20 06/17/16 07:40 Glucose (Fingerstick) 298mg/dL (70-99) 204mg/dL (70-99) 262mg/dL (70-99) Sodium Level 136mmol/L (136-145) Potassium Level 4.1mmol/L (3.5-5.1) Chloride Level 101mmol/L (98-107) Carbon Dioxide Level 26mmol/L (21-32) Anion Gap 9 (6-14) Blood Urea Nitrogen 14mg/dL (7-20) Creatinine 0.7mg/dL (0.6-1.0) Estimated GFR (Cockcroft-Gault) 80.1 Glucose Level 305mg/dL (70-99) Calcium Level 9.0mg/dL (8.5-10.1) Phosphorus Level 2.7mg/dL (2.6-4.7) Magnesium Level 1.9mg/dL (1.8-2.4) Test 06/17/16 11:48 06/17/16 16:22 06/17/16 21:01 06/18/16 06:00 Glucose (Fingerstick) 219mg/dL (70-99) 193mg/dL (70-99) 214mg/dL (70-99) White Blood Count 11.3x10^3/uL (4.0-11.0) Red Blood Count 4.11x10^6/uL (3.50-5.40) Hemoglobin 12.5g/dL (12.0-15.5) Hematocrit 38.3% (36.0-47.0) Mean Corpuscular Volume 93fL (79-100) Mean Corpuscular Hemoglobin 31pg (25-35) Mean Corpuscular Hemoglobin Concent 33g/dL (31-37) Red Cell Distribution Width 13.0% (11.5-14.5) Platelet Count 338x10^3/uL (140-400) Neutrophils (%) (Auto) 70% (31-73) Lymphocytes (%) (Auto) 20% (24-48) Monocytes (%) (Auto) 7% (0-9) Eosinophils (%) (Auto) 2% (0-3) Basophils (%) (Auto) 1% (0-3) Neutrophils # (Auto) 7.8x10^3uL (1.8-7.7) Lymphocytes # (Auto) 2.3x10^3/uL (1.0-4.8) Monocytes # (Auto) 0.8x10^3/uL (0.0-1.1) Eosinophils # (Auto) 0.2x10^3/uL (0.0-0.7) Basophils # (Auto) 0.1x10^3/uL (0.0-0.2) Erythrocyte Sedimentation Rate 69 (0-25) Sodium Level 137mmol/L (136-145) Potassium Level 4.7mmol/L (3.5-5.1) Chloride Level 102mmol/L (98-107) Carbon Dioxide Level 27mmol/L (21-32) Anion Gap 8 (6-14) Blood Urea Nitrogen 14mg/dL (7-20) Creatinine 0.6mg/dL (0.6-1.0) Estimated GFR (Cockcroft-Gault) 95.7 Glucose Level 261mg/dL (70-99) Calcium Level 9.3mg/dL (8.5-10.1) Phosphorus Level 2.9mg/dL (2.6-4.7) Magnesium Level 2.0mg/dL (1.8-2.4) Total Bilirubin 0.3mg/dL (0.2-1.0) Direct Bilirubin 0.1mg/dL (0.0-0.2) Aspartate Amino Transf (AST/SGOT) 19U/L (15-37) Alanine Aminotransferase (ALT/SGPT) 20U/L (14-59) Alkaline Phosphatase 79U/L (46-116) Total Protein 6.8g/dL (6.4-8.2) Albumin 2.2g/dL (3.4-5.0) Procalcitonin 0.24ng/mL (0.00-0.10) Test 06/18/16 08:09 06/18/16 11:02 Glucose (Fingerstick) 251mg/dL (70-99) 232mg/dL (70-99) Laboratory Tests Test 06/17/16 16:22 06/17/16 21:01 06/18/16 06:00 06/18/16 08:09 Glucose (Fingerstick) 193mg/dL (70-99) 214mg/dL (70-99) 251mg/dL (70-99) White Blood Count 11.3x10^3/uL (4.0-11.0) Red Blood Count 4.11x10^6/uL (3.50-5.40) Hemoglobin 12.5g/dL (12.0-15.5) Hematocrit 38.3% (36.0-47.0) Mean Corpuscular Volume 93fL (79-100) Mean Corpuscular Hemoglobin 31pg (25-35) Mean Corpuscular Hemoglobin Concent 33g/dL (31-37) Red Cell Distribution Width 13.0% (11.5-14.5) Platelet Count 338x10^3/uL (140-400) Neutrophils (%) (Auto) 70% (31-73) Lymphocytes (%) (Auto) 20% (24-48) Monocytes (%) (Auto) 7% (0-9) Eosinophils (%) (Auto) 2% (0-3) Basophils (%) (Auto) 1% (0-3) Neutrophils # (Auto) 7.8x10^3uL (1.8-7.7) Lymphocytes # (Auto) 2.3x10^3/uL (1.0-4.8) Monocytes # (Auto) 0.8x10^3/uL (0.0-1.1) Eosinophils # (Auto) 0.2x10^3/uL (0.0-0.7) Basophils # (Auto) 0.1x10^3/uL (0.0-0.2) Erythrocyte Sedimentation Rate 69 (0-25) Sodium Level 137mmol/L (136-145) Potassium Level 4.7mmol/L (3.5-5.1) Chloride Level 102mmol/L (98-107) Carbon Dioxide Level 27mmol/L (21-32) Anion Gap 8 (6-14) Blood Urea Nitrogen 14mg/dL (7-20) Creatinine 0.6mg/dL (0.6-1.0) Estimated GFR (Cockcroft-Gault) 95.7 Glucose Level 261mg/dL (70-99) Calcium Level 9.3mg/dL (8.5-10.1) Phosphorus Level 2.9mg/dL (2.6-4.7) Magnesium Level 2.0mg/dL (1.8-2.4) Total Bilirubin 0.3mg/dL (0.2-1.0) Direct Bilirubin 0.1mg/dL (0.0-0.2) Aspartate Amino Transf (AST/SGOT) 19U/L (15-37) Alanine Aminotransferase (ALT/SGPT) 20U/L (14-59) Alkaline Phosphatase 79U/L (46-116) Total Protein 6.8g/dL (6.4-8.2) Albumin 2.2g/dL (3.4-5.0) Procalcitonin 0.24ng/mL (0.00-0.10) Test 06/18/16 11:02 Glucose (Fingerstick) 232mg/dL (70-99) Medications Active Scripts Medications Dose Route/Sig Days Date Category Ciprofloxacin 250 Mg/5 Ml Christina.mc.rec 250 Mg PO BID 02/22/16 Rx Children's Aspirin (Aspirin) 81 Mg Tab.chew 81 Mg PO DAILYWBKFT 30 01/04/16 Rx Glipizide Er (Glipizide) 5 Mg Tab.er.24 10 Mg PO DAILY 04/25/15 Rx Pravachol (Pravastatin Sodium) 80 Mg Tablet 80 Mg PO DAILY 05/12/14 Reported Multi-Vitamin Daily (Multivitamin) 1 Each Tablet 1 Each PO DAILY 05/12/14 Reported Lisinopril 5 Mg Tablet 5 Mg PO DAILY 05/12/14 Reported Flonase (Fluticasone Propionate) 16 Gm Sylvia.susp 2 Sylvia NS DAILY 05/12/14 Reported Famotidine 40 Mg Tablet 40 Mg PO DAILY 05/12/14 Reported Cymbalta (Duloxetine Hcl) 60 Mg Capsule.dr 60 Mg PO DAILY 05/12/14 Reported Docusate Sodium 100 Mg Capsule 100 Mg PO DAILY 05/12/14 Reported Fish Oil Concentrate Softgel (Docosahexanoic Acid/Epa) 1 Each Capsule 1 Each PO DAILY 05/12/14 Reported Caltrate 600 + D Tablet (Calcium Carbonate/Vitamin D3) 1 Each Tablet 1 Each PO DAILY 05/12/14 Reported Impression . Traumatic small right PTX, resolved s/p fall, multiple right rib fractures encephalopathy per neurology, improved right chest 6th to 9th rib fractures. Narcotic induced apneas, seems to have resolved. Plan . From pulmonary standpoint ,no intervention CXR with resolved PTX off benzo and narcotics. Discussed in detail with RN /daughter CPAP qhs prn will see PRN ASHLIE SERRANO MD Jun 18, 2016 16:09
--- NOTE | 2016-06-18 16:45 | PDOC ---
PROGRESS NOTES Chief Complaint Chief Complaint acute metabolic encephalopathy s/p fall w/ rib fx ASSESSMENT AND PLAN: 1. R rib fxs # 6-9 with smll PTX: 2/ fall. treat symptomatically. appreciate Dr Flanagan's input 2. Acute encephalopathy: unclear etiology. unlikely infectious with LP results from 06/11; neg MRI. appreciate Neuro and ID services' input. minimize sedating meds. mentating normally today 3. ? Dysphagia: eval postponed 05/10 mental status; scheduled for AM 4. Leukocytosis: fluctuating around upper normal limit with absolute neutrophilia. ESR elevated, ? inflammation (vs infection) 5. Colitis: suspect ischemic with hematochezia, neg C. diff 6. ANT: POA, susp vasomotor etiology. now resolved 7. Hyperkalemia: POA. much improved, now stable at upper normal limit 8. DM: poorly controlled on ISS only. oral glipizide currently on hold 2/ NPO 9. HTN: slowly improving. oral meds on hold for now 10. GERD: PPI 11. 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 Scoliosis 14. Dispo: D/C to SNU soon ANT. improved Multiple rib fractures post mechanical fall DM Type II CAD h/o CVA Recent UTI on cipro Plan Plan of Care Cont off abx Monitor labs in am Sed rate/Procalcitonin this am May need repeat CT chest/abd/pelvis with dobhoff and contrast Trial of steroid times one Vitals Vitals Vital Signs Date Time Temp Pulse Resp B/P Pulse Ox O2 Delivery O2 Flow Rate FiO2 06/18/16 11:00 98.2 64 14 137/51 96 Room Air 98.2 06/17/16 19:00 2.0 Physical Exam Physical Exam confused, General: Alert, Cooperative, No acute distress, Other ( some oriented 2/3) Heart: Regular rate, Normal S1, Normal S2, No murmurs Lungs: Clear Abdomen: Soft, No masses, Other (Tender, w. some guarding) Extremities: No cyanosis, No edema Skin: No breakdown, No significant lesion Labs LABS Laboratory Tests Test 06/17/16 16:22 06/17/16 21:01 06/18/16 06:00 06/18/16 08:09 Glucose (Fingerstick) 193mg/dL (70-99) 214mg/dL (70-99) 251mg/dL (70-99) White Blood Count 11.3x10^3/uL (4.0-11.0) Red Blood Count 4.11x10^6/uL (3.50-5.40) Hemoglobin 12.5g/dL (12.0-15.5) Hematocrit 38.3% (36.0-47.0) Mean Corpuscular Volume 93fL (79-100) Mean Corpuscular Hemoglobin 31pg (25-35) Mean Corpuscular Hemoglobin Concent 33g/dL (31-37) Red Cell Distribution Width 13.0% (11.5-14.5) Platelet Count 338x10^3/uL (140-400) Neutrophils (%) (Auto) 70% (31-73) Lymphocytes (%) (Auto) 20% (24-48) Monocytes (%) (Auto) 7% (0-9) Eosinophils (%) (Auto) 2% (0-3) Basophils (%) (Auto) 1% (0-3) Neutrophils # (Auto) 7.8x10^3uL (1.8-7.7) Lymphocytes # (Auto) 2.3x10^3/uL (1.0-4.8) Monocytes # (Auto) 0.8x10^3/uL (0.0-1.1) Eosinophils # (Auto) 0.2x10^3/uL (0.0-0.7) Basophils # (Auto) 0.1x10^3/uL (0.0-0.2) Erythrocyte Sedimentation Rate 69 (0-25) Sodium Level 137mmol/L (136-145) Potassium Level 4.7mmol/L (3.5-5.1) Chloride Level 102mmol/L (98-107) Carbon Dioxide Level 27mmol/L (21-32) Anion Gap 8 (6-14) Blood Urea Nitrogen 14mg/dL (7-20) Creatinine 0.6mg/dL (0.6-1.0) Estimated GFR (Cockcroft-Gault) 95.7 Glucose Level 261mg/dL (70-99) Calcium Level 9.3mg/dL (8.5-10.1) Phosphorus Level 2.9mg/dL (2.6-4.7) Magnesium Level 2.0mg/dL (1.8-2.4) Total Bilirubin 0.3mg/dL (0.2-1.0) Direct Bilirubin 0.1mg/dL (0.0-0.2) Aspartate Amino Transf (AST/SGOT) 19U/L (15-37) Alanine Aminotransferase (ALT/SGPT) 20U/L (14-59) Alkaline Phosphatase 79U/L (46-116) Total Protein 6.8g/dL (6.4-8.2) Albumin 2.2g/dL (3.4-5.0) Procalcitonin 0.24ng/mL (0.00-0.10) Test 06/18/16 11:02 Glucose (Fingerstick) 232mg/dL (70-99) Review of Systems Review of Systems deneis any pain in bis. no SOB. very dry mouth Comment Review of Relevant EDDIE CHAVEZ MD Jun 18, 2016 16:45
[2016-06-18 19:05] VITALS: BP 150/75
[2016-06-18] MEDS: ATORVASTATIN CALCIUM 20 MG TABLET PO SCH (20:24)
[2016-06-18] MEDS ORDERED: AMINO ACIDS IV SCH ×10 (22:00)
[2016-06-18] MEDS ORDERED: DEXTROSE 70% IV SCH ×10 (22:00)
[2016-06-18] MEDS ORDERED: TOTAL PARENTERAL NUTRITION IV SCH ×10 (22:00)
[2016-06-18] MEDS ORDERED: [UNRECOGNIZED DRUG - OTHER] IV SCH ×10 (22:00)
[2016-06-18 23:05] VITALS: BP 128/57
[2016-06-19 03:05] VITALS: BP 137/41
[2016-06-19 06:31] LABS: CALCIUM 9.4 mg/dL (8.5-10.1); CREATININE 0.9 mg/dL (0.6-1.0); GFR 59.9; POTASSIUM 4.7 mmol/L (3.5-5.1)
[2016-06-19 06:35] LABS: MAGNESIUM 1.9 mg/dL (1.8-2.4); PHOSPHORUS 2.9 mg/dL (2.6-4.7)
[2016-06-19 07:00] VITALS: BP 129/53
[2016-06-19] MEDS: IV NORMAL SALINE 1000ML BAG 1,000 ML IV SCH (07:05)
[2016-06-19] MEDS: ASPIRIN 81 MG TAB.CHEW PO SCH (08:00)
[2016-06-19] MEDS: GLIPIZIDE ER 5 MG TAB.ER.24 PO SCH (08:00)
[2016-06-19] MEDS: DULOXETINE HCL 30 MG CAPSULE.DR. PO SCH (09:00)
[2016-06-19] MEDS: CALCIUM CARB/VIT D3 500/200 TABLET PO SCH (09:00)
[2016-06-19] MEDS: OMEGA-3 FATTY ACIDS/FISH OIL 1,000 MG CAPSULE. PO SCH (09:00)
[2016-06-19] MEDS: DOCUSATE SODIUM 100 MG CAPSULE PO SCH (09:00)
[2016-06-19] MEDS: LISINOPRIL 5 MG TABLET. PO SCH (09:00)
[2016-06-19] MEDS: MULTIVITAMIN with MINERAL TABLET. PO SCH (09:00)
[2016-06-19] MEDS: LIDOCAINE (700MG/PATCH) PATCH. TD SCH (09:00)
[2016-06-19] MEDS: FLUTICASONE 50MCG/NASAL SPRAY 16GM BOTTLE. NS SCH (09:00)
[2016-06-19] MEDS: PANTOPRAZOLE IV PUSH 40 MG VIAL. IVP SCH (09:04)
[2016-06-19] MEDS: INSULIN ASPART 300 UNITS/3 ML INSULN.PEN SQ SCH ×4 (09:10→20:51)
--- NOTE | 2016-06-19 09:44 | PDOC ---
PULMONARY PROGRESS NOTES Subjective awake no soa Vitals Vital Signs Date Time Temp Pulse Resp B/P Pulse Ox O2 Delivery O2 Flow Rate FiO2 06/19/16 07:40 Room Air 06/19/16 07:00 98.0 74 16 129/53 94 98.0 General: Alert, No acute distress HEENT: Other Lungs: Clear Cardiovascular: S1, S2 Abdomen: Soft Neuro Exam: Alert Extremities: No Edema Skin: Warm Labs Laboratory Tests Test 06/17/16 11:48 06/17/16 16:22 06/17/16 21:01 06/18/16 06:00 Glucose (Fingerstick) 219mg/dL (70-99) 193mg/dL (70-99) 214mg/dL (70-99) White Blood Count 11.3x10^3/uL (4.0-11.0) Red Blood Count 4.11x10^6/uL (3.50-5.40) Hemoglobin 12.5g/dL (12.0-15.5) Hematocrit 38.3% (36.0-47.0) Mean Corpuscular Volume 93fL (79-100) Mean Corpuscular Hemoglobin 31pg (25-35) Mean Corpuscular Hemoglobin Concent 33g/dL (31-37) Red Cell Distribution Width 13.0% (11.5-14.5) Platelet Count 338x10^3/uL (140-400) Neutrophils (%) (Auto) 70% (31-73) Lymphocytes (%) (Auto) 20% (24-48) Monocytes (%) (Auto) 7% (0-9) Eosinophils (%) (Auto) 2% (0-3) Basophils (%) (Auto) 1% (0-3) Neutrophils # (Auto) 7.8x10^3uL (1.8-7.7) Lymphocytes # (Auto) 2.3x10^3/uL (1.0-4.8) Monocytes # (Auto) 0.8x10^3/uL (0.0-1.1) Eosinophils # (Auto) 0.2x10^3/uL (0.0-0.7) Basophils # (Auto) 0.1x10^3/uL (0.0-0.2) Erythrocyte Sedimentation Rate 69 (0-25) Sodium Level 137mmol/L (136-145) Potassium Level 4.7mmol/L (3.5-5.1) Chloride Level 102mmol/L (98-107) Carbon Dioxide Level 27mmol/L (21-32) Anion Gap 8 (6-14) Blood Urea Nitrogen 14mg/dL (7-20) Creatinine 0.6mg/dL (0.6-1.0) Estimated GFR (Cockcroft-Gault) 95.7 Glucose Level 261mg/dL (70-99) Calcium Level 9.3mg/dL (8.5-10.1) Phosphorus Level 2.9mg/dL (2.6-4.7) Magnesium Level 2.0mg/dL (1.8-2.4) Total Bilirubin 0.3mg/dL (0.2-1.0) Direct Bilirubin 0.1mg/dL (0.0-0.2) Aspartate Amino Transf (AST/SGOT) 19U/L (15-37) Alanine Aminotransferase (ALT/SGPT) 20U/L (14-59) Alkaline Phosphatase 79U/L (46-116) Total Protein 6.8g/dL (6.4-8.2) Albumin 2.2g/dL (3.4-5.0) Procalcitonin 0.24ng/mL (0.00-0.10) Test 06/18/16 08:09 06/18/16 11:02 06/18/16 16:29 06/18/16 21:27 Glucose (Fingerstick) 251mg/dL (70-99) 232mg/dL (70-99) 307mg/dL (70-99) 342mg/dL (70-99) Test 06/19/16 05:30 06/19/16 08:22 Sodium Level 136mmol/L (136-145) Potassium Level 4.7mmol/L (3.5-5.1) Chloride Level 104mmol/L (98-107) Carbon Dioxide Level 23mmol/L (21-32) Anion Gap 9 (6-14) Blood Urea Nitrogen 24mg/dL (7-20) Creatinine 0.9mg/dL (0.6-1.0) Estimated GFR (Cockcroft-Gault) 59.9 Glucose Level 316mg/dL (70-99) Calcium Level 9.4mg/dL (8.5-10.1) Phosphorus Level 2.9mg/dL (2.6-4.7) Magnesium Level 1.9mg/dL (1.8-2.4) Glucose (Fingerstick) 288mg/dL (70-99) Laboratory Tests Test 06/18/16 11:02 06/18/16 16:29 06/18/16 21:27 06/19/16 05:30 Glucose (Fingerstick) 232mg/dL (70-99) 307mg/dL (70-99) 342mg/dL (70-99) Sodium Level 136mmol/L (136-145) Potassium Level 4.7mmol/L (3.5-5.1) Chloride Level 104mmol/L (98-107) Carbon Dioxide Level 23mmol/L (21-32) Anion Gap 9 (6-14) Blood Urea Nitrogen 24mg/dL (7-20) Creatinine 0.9mg/dL (0.6-1.0) Estimated GFR (Cockcroft-Gault) 59.9 Glucose Level 316mg/dL (70-99) Calcium Level 9.4mg/dL (8.5-10.1) Phosphorus Level 2.9mg/dL (2.6-4.7) Magnesium Level 1.9mg/dL (1.8-2.4) Test 06/19/16 08:22 Glucose (Fingerstick) 288mg/dL (70-99) Medications Active Scripts Medications Dose Route/Sig Days Date Category Ciprofloxacin 250 Mg/5 Ml Christina..rec 250 Mg PO BID 02/22/16 Rx Children's Aspirin (Aspirin) 81 Mg Tab.chew 81 Mg PO DAILYWBKFT 30 01/04/16 Rx Glipizide Er (Glipizide) 5 Mg Tab.er.24 10 Mg PO DAILY 04/25/15 Rx Pravachol (Pravastatin Sodium) 80 Mg Tablet 80 Mg PO DAILY 05/12/14 Reported Multi-Vitamin Daily (Multivitamin) 1 Each Tablet 1 Each PO DAILY 05/12/14 Reported Lisinopril 5 Mg Tablet 5 Mg PO DAILY 05/12/14 Reported Flonase (Fluticasone Propionate) 16 Gm [place].susp 2 [place] NS DAILY 05/12/14 Reported Famotidine 40 Mg Tablet 40 Mg PO DAILY 05/12/14 Reported Cymbalta (Duloxetine Hcl) 60 Mg Capsule.dr 60 Mg PO DAILY 05/12/14 Reported Docusate Sodium 100 Mg Capsule 100 Mg PO DAILY 05/12/14 Reported Fish Oil Concentrate Softgel (Docosahexanoic Acid/Epa) 1 Each Capsule 1 Each PO DAILY 05/12/14 Reported Caltrate 600 + D Tablet (Calcium Carbonate/Vitamin D3) 1 Each Tablet 1 Each PO DAILY 05/12/14 Reported Impression . Traumatic small right PTX, resolved s/p fall, multiple right rib fractures encephalopathy per neurology, improved right chest 6th to 9th rib fractures. Narcotic induced apneas, seems to have resolved. Plan . From pulmonary standpoint ,no intervention CXR with resolved PTX off benzo and narcotics. Discussed in detail with RN /daughter CPAP qhs prn will see ASHLIE EID MD Jun 19, 2016 09:44
[2016-06-19 11:00] VITALS: BP 135/43
--- NOTE | 2016-06-19 11:00 | PDOC ---
PROGRESS NOTES Chief Complaint Chief Complaint acute metabolic encephalopathy s/p fall w/ rib fx ASSESSMENT AND PLAN: 1. R rib fxs # 6-9 with smll PTX: / fall. treat symptomatically. 2. Acute encephalopathy: unclear etiology. unlikely infectious with LP results from 06/11; neg MRI. appreciate Neuro and ID services' input. minimize sedating meds. mentating normally today 3. ? Dysphagia: eval postponed 05/10 mental status; video swallow today 4. Leukocytosis: fluctuating around upper normal limit with absolute neutrophilia. ESR elevated, ? inflammation (vs infection) 5. Colitis: suspect ischemic with hematochezia, neg C. diff 6. ANT: POA, susp vasomotor etiology. now resolved 7. Hyperkalemia: POA. much improved, now stable at upper normal limit 8. DM: poorly controlled on ISS only. oral glipizide currently on hold 2/ NPO 9. HTN: slowly improving. oral meds on hold for now 10. GERD: PPI 11. 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 Scoliosis 14. Dispo: D/C to SNU soon when acute issues resolved/addressed Vitals Vitals Vital Signs Date Time Temp Pulse Resp B/P Pulse Ox O2 Delivery O2 Flow Rate FiO2 06/19/16 07:40 Room Air 06/19/16 07:00 98.0 74 16 129/53 94 98.0 Physical Exam Physical Exam confused, General: Cooperative, No acute distress, Other (lethargic) Heart: Regular rate, Normal S1, Normal S2, No murmurs Lungs: Clear Abdomen: Soft, No masses, Other (Tender, w. some guarding) Extremities: No cyanosis, No edema Skin: No breakdown, No significant lesion Labs LABS Laboratory Tests Test 06/18/16 11:02 06/18/16 16:29 06/18/16 21:27 06/19/16 05:30 Glucose (Fingerstick) 232mg/dL (70-99) 307mg/dL (70-99) 342mg/dL (70-99) Sodium Level 136mmol/L (136-145) Potassium Level 4.7mmol/L (3.5-5.1) Chloride Level 104mmol/L (98-107) Carbon Dioxide Level 23mmol/L (21-32) Anion Gap 9 (6-14) Blood Urea Nitrogen 24mg/dL (7-20) Creatinine 0.9mg/dL (0.6-1.0) Estimated GFR (Cockcroft-Gault) 59.9 Glucose Level 316mg/dL (70-99) Calcium Level 9.4mg/dL (8.5-10.1) Phosphorus Level 2.9mg/dL (2.6-4.7) Magnesium Level 1.9mg/dL (1.8-2.4) Test 06/19/16 08:22 Glucose (Fingerstick) 288mg/dL (70-99) Review of Systems Review of Systems sleepy, but responds appropriately. no c/o EDDIE CHAVEZ MD Jun 19, 2016 11:00
--- NOTE | 2016-06-19 11:08 | PDOC2 ---
PALLIATIVE CARE Palliative Care Note Palliative Care Patient resting. Observed 20 sec. periods of apnea. Daughter states she has had periods of not breathing before. Discussed Code Status; Daughter requests DNR/DNI. Understands without this attempt she likely would . Spoke with Maryam ANN --will get order from physician. Will have daughter sign outside the hospital DNR/DNI form. Daughter wants to continue with other aggressive treatments Noted results of swallow evaluation. Will followup with daughter after video swallow completed. VIKTORIA MCRAE Jun 19, 2016 11:08
[2016-06-19] MEDS: TPN PER PHARMACY MC PRN (11:18)
[2016-06-19] MEDS ORDERED: BARIUM SULFATE 40% (APPLE) 148 GM PWD. PO ONE (11:30)
--- NOTE | 2016-06-19 11:31 | PDOC ---
Infectious Disease Note Subjective Subjective Much better. Knew location and date. Recognized daughter Wants to eat ROS ROS GEN: Denies fevers, chills, sweats HEENT: Denies blurred vision, sore throat CV: Denies chest pain RESP: Denies shortness of air, cough GI: Denies n/v/d NEURO: Denies confusion, dizziness MSK: Denies weakness, joint pain/swelling Vital Sign Vital Signs Vital Signs Date Time Temp Pulse Resp B/P Pulse Ox O2 Delivery O2 Flow Rate FiO2 06/19/16 07:40 Room Air 06/19/16 07:00 98.0 74 16 129/53 94 98.0 Physical Exam PHYSICAL EXAM GENERAL: NAD, Alert HEENT: PERRL, OC/OP -clear NECK: Supple, no JVD, no LN LUNGS: Clear HEART: S1S2, no gallop, no murmur ABD: Soft, NT, no organomegaly, no rebound EXT: No edema, no cyanosis LICENSED PESTICIDE APPLICATOR: Alert, oriented x 3, no focal neurologic deficit SKIN: No rash IV: ok Labs Lab Laboratory Tests Test 06/18/16 16:29 06/18/16 21:27 06/19/16 05:30 06/19/16 08:22 Glucose (Fingerstick) 307mg/dL (70-99) 342mg/dL (70-99) 288mg/dL (70-99) Sodium Level 136mmol/L (136-145) Potassium Level 4.7mmol/L (3.5-5.1) Chloride Level 104mmol/L (98-107) Carbon Dioxide Level 23mmol/L (21-32) Anion Gap 9 (6-14) Blood Urea Nitrogen 24mg/dL (7-20) Creatinine 0.9mg/dL (0.6-1.0) Estimated GFR (Cockcroft-Gault) 59.9 Glucose Level 316mg/dL (70-99) Calcium Level 9.4mg/dL (8.5-10.1) Phosphorus Level 2.9mg/dL (2.6-4.7) Magnesium Level 1.9mg/dL (1.8-2.4) Objective Assessment ? Autoimmume process - with elevated sed and CRP and response to steroid Acute encephalopathy, etiology unclear - remarkable turnaround with single dose of Solumedrol -LP: 06/11. CSF WBC 3, RBC 26, Glucose 122, protein 63.3. WNV neg. No organisms on GS. - HSV PCR negative - Brain MRI w/o contrast performed showed no evidence of CVA this time. Bloody diarrhea. c. diff neg. Colitis on CT ANT. improved Multiple rib fractures post mechanical fall DM Type II CAD h/o CVA Recent UTI on cipro Plan Plan of Care Cont off abx Trial of solumedrol q 8 Monitor labs in am D/w daughter ROSIBEL GAY MD Jun 19, 2016 11:31
--- NOTE | 2016-06-19 12:35 | PDOC ---
Objective: Objective: More alert. Vital Signs: Vital Signs Date Time Temp Pulse Resp B/P Pulse Ox O2 Delivery O2 Flow Rate FiO2 06/19/16 11:00 97.5 67 16 135/43 96 Room Air 97.5 Labs: Laboratory Tests Test 06/18/16 16:29 06/18/16 21:27 06/19/16 05:30 06/19/16 08:22 Glucose (Fingerstick) 307mg/dL 342mg/dL 288mg/dL Sodium Level 136mmol/L Potassium Level 4.7mmol/L Chloride Level 104mmol/L Carbon Dioxide Level 23mmol/L Anion Gap 9 Blood Urea Nitrogen 24mg/dL Creatinine 0.9mg/dL Estimated GFR (Cockcroft-Gault) 59.9 Glucose Level 316mg/dL Calcium Level 9.4mg/dL Phosphorus Level 2.9mg/dL Magnesium Level 1.9mg/dL Test 06/19/16 11:26 Glucose (Fingerstick) 252mg/dL PE: GEN: NAD LUNGS: CTAB HEART: RRR ABD: NABS, S/ND/NT NEURO/PSYCH: able to tell me she's at a hospital and the year in 2017, unsure of date of A/P: Encephalopathy -?improved w/ steroid Rectal bleeding, possible ischemic colitis - resolved -Hgb improved -- Stable GI-chaney. Note plans to continue steroids. OVI LAKHANI Jun 19, 2016 12:35
[2016-06-19 15:00] VITALS: BP 134/58
--- NOTE | 2016-06-19 15:06 | RAD ---
Clinical Indication: Dysphagia Technique: Current study is dated June 19, 2016. Oropharyngeal swallow evaluation was performed with the speech therapist present with images obtained in the lateral view. Total fluoroscopy time was 4.0 minutes. Image count is 26. Patient was challenged with thin, Honey, pudding, and solid consistencies Findings: There is oral discoordination, mild. This includes mild stasis. Cooling to the vallecula and the piriform sinuses was repeated. There were 3 episodes of penetration with honey consistency, silent. There was penetration, deep, of all thin consistency trials. This was also silent. There was single episode of aspiration of thin liquid. Post swallow residual is noted in the vallecula and perform sinuses, noted with Honey and pudding consistency. Please see speech therapy notes for additional details. Impression: Penetration of thin and honey consistencies. Penetration was silent.
[2016-06-19] MEDS: methylPREDNISolone SOD SUCC PF 40 MG/ML VIAL. IV SCH ×2 (15:24→23:58)
--- NOTE | 2016-06-19 17:51 | PDOC2 ---
PALLIATIVE CARE Palliative Care Note Palliative Care Spoke with patient. Patient is able to say she is in the hospital. Unable to verbalize the reason why she is in the hospital. Does not know the year. Spoke with Dr. Steward. Discussed code status, results of video swallow, and discussion with daughter about code status. (Daughter requests DNR/DNI) Dr. Steward will write order for DNR/DNI. VIKTORIA MCRAE Jun 19, 2016 17:51
[2016-06-19 19:00] VITALS: BP 124/54
[2016-06-19] MEDS: ATORVASTATIN CALCIUM 20 MG TABLET PO SCH (20:43)
[2016-06-19] MEDS ORDERED: AMINO ACIDS IV SCH ×10 (22:00)
[2016-06-19] MEDS ORDERED: TOTAL PARENTERAL NUTRITION IV SCH ×10 (22:00)
[2016-06-19] MEDS ORDERED: [UNRECOGNIZED DRUG - OTHER] IV SCH ×10 (22:00)
[2016-06-19] MEDS ORDERED: DEXTROSE 70% IV SCH ×10 (22:00)
[2016-06-19 23:00] VITALS: BP 137/48
[2016-06-20 03:00] VITALS: BP 178/62
[2016-06-20] MEDS: IV NORMAL SALINE 1000ML BAG 1,000 ML IV SCH ×2 (03:05→21:56)
[2016-06-20 04:47] LABS: CALCIUM 9.2 mg/dL (8.5-10.1); CREATININE 0.8 mg/dL (0.6-1.0); GFR 68.7; MAGNESIUM 1.8 mg/dL (1.8-2.4); PHOSPHORUS 3.2 mg/dL (2.6-4.7); POTASSIUM 5.4 mmol/L (3.5-5.1)
[2016-06-20] MEDS: methylPREDNISolone SOD SUCC PF 40 MG/ML VIAL. IV SCH ×3 (06:16→21:55)
[2016-06-20 07:00] VITALS: BP 158/62
[2016-06-20] MEDS: GLIPIZIDE ER 5 MG TAB.ER.24 PO SCH (08:00)
[2016-06-20] MEDS: ASPIRIN 81 MG TAB.CHEW PO SCH (08:00)
--- NOTE | 2016-06-20 08:13 | PDOC ---
Infectious Disease Note Subjective Subjective Doing well WILLOW DAUGHERTY Unable to attain Vital Sign Vital Signs Vital Signs Date Time Temp Pulse Resp B/P Pulse Ox O2 Delivery O2 Flow Rate FiO2 06/20/16 07:00 97.7 64 18 158/62 95 Room Air 97.7 Physical Exam PHYSICAL EXAM GENERAL: NAD, Pleasant HEENT: PERRL, OC/OP -clear NECK: Supple, no JVD, no LN LUNGS: Clear HEART: S1S2, no gallop, no murmur ABD: Soft, NT, no organomegaly, no rebound EXT: No edema, no cyanosis PUBLIC WORKS DIRECTOR: Alert and oriented to Place and year SKIN: No rash IV: PICC - clean Labs Lab Laboratory Tests Test 06/19/16 08:22 06/19/16 11:26 06/19/16 16:17 06/19/16 20:33 Glucose (Fingerstick) 288mg/dL (70-99) 252mg/dL (70-99) 296mg/dL (70-99) 308mg/dL (70-99) Test 06/20/16 00:19 06/20/16 04:10 06/20/16 06:43 Glucose (Fingerstick) 290mg/dL (70-99) 299mg/dL (70-99) Sodium Level 136mmol/L (136-145) Potassium Level 5.4mmol/L (3.5-5.1) Chloride Level 103mmol/L (98-107) Carbon Dioxide Level 26mmol/L (21-32) Anion Gap 7 (6-14) Blood Urea Nitrogen 24mg/dL (7-20) Creatinine 0.8mg/dL (0.6-1.0) Estimated GFR (Cockcroft-Gault) 68.7 Glucose Level 326mg/dL (70-99) Calcium Level 9.2mg/dL (8.5-10.1) Phosphorus Level 3.2mg/dL (2.6-4.7) Magnesium Level 1.8mg/dL (1.8-2.4) Objective Assessment ? Autoimmume process - with elevated sed and CRP and response to steroid Acute encephalopathy, etiology unclear - remarkable turnaround with single dose of Solumedrol -LP: 06/11. CSF WBC 3, RBC 26, Glucose 122, protein 63.3. WNV neg. No organisms on GS. - HSV PCR negative - Brain MRI w/o contrast performed showed no evidence of CVA this time. Bloody diarrhea. c. diff neg. Colitis on CT ANT. improved Multiple rib fractures post mechanical fall DM Type II CAD h/o CVA Recent UTI on cipro Plan Plan of Care Cont solumedrol q 8 - will defer to Hospitalist a taper schedule ? low dose maintenance ID to sign off D/w daughter D/w ROSIBEL Patel MD Jun 20, 2016 08:13
[2016-06-20] MEDS: LISINOPRIL 5 MG TABLET. PO SCH (09:00)
[2016-06-20] MEDS: MULTIVITAMIN with MINERAL TABLET. PO SCH (09:00)
[2016-06-20] MEDS: CALCIUM CARB/VIT D3 500/200 TABLET PO SCH (09:00)
[2016-06-20] MEDS: FLUTICASONE 50MCG/NASAL SPRAY 16GM BOTTLE. NS SCH (09:00)
[2016-06-20] MEDS: OMEGA-3 FATTY ACIDS/FISH OIL 1,000 MG CAPSULE. PO SCH (09:00)
[2016-06-20] MEDS: DULOXETINE HCL 30 MG CAPSULE.DR. PO SCH (09:00)
[2016-06-20] MEDS: LIDOCAINE (700MG/PATCH) PATCH. TD SCH (09:00)
[2016-06-20] MEDS: DOCUSATE SODIUM 100 MG CAPSULE PO SCH (09:00)
[2016-06-20] MEDS: PANTOPRAZOLE IV PUSH 40 MG VIAL. IVP SCH (09:55)
[2016-06-20] MEDS: INSULIN ASPART 300 UNITS/3 ML INSULN.PEN SQ SCH ×4 (10:10→22:00)
--- NOTE | 2016-06-20 10:58 | PDOC ---
G I PROGRESS NOTE Subjective Much more awake. Still NPO. Physical Exam Abdomen benign. Review of Relevant I have reviewed the following items quincy (where applicable) has been applied. Labs Laboratory Tests Test 06/18/16 11:02 06/18/16 16:29 06/18/16 21:27 06/19/16 05:30 Glucose (Fingerstick) 232mg/dL (70-99) 307mg/dL (70-99) 342mg/dL (70-99) Sodium Level 136mmol/L (136-145) Potassium Level 4.7mmol/L (3.5-5.1) Chloride Level 104mmol/L (98-107) Carbon Dioxide Level 23mmol/L (21-32) Anion Gap 9 (6-14) Blood Urea Nitrogen 24mg/dL (7-20) Creatinine 0.9mg/dL (0.6-1.0) Estimated GFR (Cockcroft-Gault) 59.9 Glucose Level 316mg/dL (70-99) Calcium Level 9.4mg/dL (8.5-10.1) Phosphorus Level 2.9mg/dL (2.6-4.7) Magnesium Level 1.9mg/dL (1.8-2.4) Test 06/19/16 08:22 06/19/16 11:26 06/19/16 16:17 06/19/16 20:33 Glucose (Fingerstick) 288mg/dL (70-99) 252mg/dL (70-99) 296mg/dL (70-99) 308mg/dL (70-99) Test 06/20/16 00:19 06/20/16 04:10 06/20/16 06:43 Glucose (Fingerstick) 290mg/dL (70-99) 299mg/dL (70-99) Sodium Level 136mmol/L (136-145) Potassium Level 5.4mmol/L (3.5-5.1) Chloride Level 103mmol/L (98-107) Carbon Dioxide Level 26mmol/L (21-32) Anion Gap 7 (6-14) Blood Urea Nitrogen 24mg/dL (7-20) Creatinine 0.8mg/dL (0.6-1.0) Estimated GFR (Cockcroft-Gault) 68.7 Glucose Level 326mg/dL (70-99) Calcium Level 9.2mg/dL (8.5-10.1) Phosphorus Level 3.2mg/dL (2.6-4.7) Magnesium Level 1.8mg/dL (1.8-2.4) Laboratory Tests Test 06/19/16 11:26 06/19/16 16:17 06/19/16 20:33 06/20/16 00:19 Glucose (Fingerstick) 252mg/dL (70-99) 296mg/dL (70-99) 308mg/dL (70-99) 290mg/dL (70-99) Test 06/20/16 04:10 06/20/16 06:43 Sodium Level 136mmol/L (136-145) Potassium Level 5.4mmol/L (3.5-5.1) Chloride Level 103mmol/L (98-107) Carbon Dioxide Level 26mmol/L (21-32) Anion Gap 7 (6-14) Blood Urea Nitrogen 24mg/dL (7-20) Creatinine 0.8mg/dL (0.6-1.0) Estimated GFR (Cockcroft-Gault) 68.7 Glucose Level 326mg/dL (70-99) Calcium Level 9.2mg/dL (8.5-10.1) Phosphorus Level 3.2mg/dL (2.6-4.7) Magnesium Level 1.8mg/dL (1.8-2.4) Glucose (Fingerstick) 299mg/dL (70-99) Microbiology 06/10/16 Blood Culture - Final, Complete NO GROWTH AFTER 5 DAYS 06/11/16 Gram Stain - Final, Complete 06/08/16 Urine Culture - Final, Complete 06/08/16 Urine Culture Result 1 (ALEJO) - Final, Complete Medications Current Medications Lidocaine (Lidoderm) 1 patch 1X ONCE TD Last administered on 06/08/16 09:12; Start 06/08/16 at 09:00; Stop 06/08/16 at 09:01; Status DC Acetaminophen (Tylenol) 1,000 mg 1X ONCE PO Last administered on 06/08/16 09: 12; Start 06/08/16 at 09:00; Stop 06/08/16 at 09:01; Status DC Oxycodone/ Acetaminophen (Percocet 5/325) 1 tab 1X ONCE PO Last administered on 06/08/16 10:00; Start 06/08/16 at 10:00; Stop 06/08/16 at 10:01; Status DC Ondansetron HCl (Zofran) 4 mg PRN Q6HRS PRN IV NAUSEA/VOMITING; Start 06/08/16 at 12:00; Stop 06/12/16 at 09:19; Status DC Al Hydrox/Mg Hydrox/Simethicone (Mylanta Plus Xs) 30 ml PRN Q3HRS PRN PO HEARTBURN / GAS; Start 06/08/16 at 12:00; Stop 06/12/16 at 09:19; Status DC Calcium Carbonate/ Glycine (Tums) 500 mg PRN Q3HRS PRN PO UPSET STOMACH; Start 06/08/16 at 12:00; Stop 06/12/16 at 09:19; Status DC Oxycodone HCl (Roxicodone) 5 mg PRN Q3HRS PRN PO BREAKTHROUGH PAIN; Start at 12:00; Stop 06/12/16 at 09:19; Status DC Morphine Sulfate 1 mg PRN Q2HR PRN IV PAIN; Start 06/08/16 at 12:00; Stop at 09:19; Status DC Oxycodone/ Acetaminophen (Percocet 5/325) 1 tab PRN Q4HRS PRN PO MILD PAIN, 1ST CHOICE Last administered on 06/09/16 15:03; Start 06/08/16 at 12:00; Stop 06/12/16 at 09:19; Status DC Docusate Sodium (Colace) 100 mg BID PO ; Start 06/08/16 at 21:00; Status Cancel Magnesium Hydroxide (Milk Of Magnesia) 2,400 mg PRN Q12HR PRN PO CONSTIPATION; Start 06/08/16 at 12:00; Stop 06/12/16 at 09:19; Status DC Lactulose 20 gm PRN Q12HR PRN PO CONSTIPATION; Start 06/08/16 at 12:00; Stop 06/12/16 at 09:19; Status DC Bisacodyl (Dulcolax Supp) 10 mg PRN DAILY PRN [place] CONSTIPATION; Start 06/08/16 at 12:00; Stop 06/12/16 at 09:19; Status DC Enoxaparin Sodium (Lovenox 40mg Syringe) 40 mg DAILY16 SQ Last administered on 06/09/16 15:03; Start 06/08/16 at 16:00; Stop 06/10/16 at 12:52; Status DC Lidocaine (Lidoderm) 1 patch DAILY TD Last administered on 06/09/16 07:41; Start 06/08/16 at 13:00 Aspirin (Children'S Aspirin) 81 mg DAILYWBKFT PO Last administered on 06/09/16 07:41; Start 06/08/16 at 13:00 Docusate Sodium (Colace) 100 mg DAILY PO Last administered on 06/09/16 09:00; Start 06/09/16 at 09:00 Fluticasone Propionate (Flonase) 2 spray DAILY NS Last administered on 09:17; Start 06/08/16 at 13:00 Glipizide (Glucotrol Er) 10 mg DAILY08 PO Last administered on 06/09/16 07:38; Start 06/08/16 at 13:00 Lisinopril (Prinivil) 5 mg DAILY PO Last administered on 06/09/16 07:39; Start 06/08/16 at 13:00 Calcium/Vitamin D (Oscal D 500mg/ 200uts) 1 tab DAILY PO Last administered on 07:39; Start 06/08/16 at 13:00 Fish Oil (Fish Oil) 1,000 mg DAILY PO Last administered on 06/09/16 07:38; Start 06/08/16 at 13:00 Duloxetine HCl (Cymbalta) 60 mg DAILY PO Last administered on 06/09/16 07:40; Start 06/08/16 at 13:00 Famotidine (Pepcid) 40 mg DAILY PO Last administered on 06/09/16 07:40; Start 06/08/16 at 13:00; Stop 06/10/16 at 11:55; Status DC Multivitamins/ Calcium (Thera M Plus) 1 tab DAILY PO Last administered on 07:39; Start 06/08/16 at 13:00 Atorvastatin Calcium (Lipitor) 20 mg QHS PO Last administered on 06/08/16 20:56 ; Start 06/08/16 at 21:00 Insulin Aspart (Novolog) 0-9 UNITS TIDWMEALS SQ Last administered on 06/13/16 17:49; Start 06/08/16 at 12:30; Stop 06/13/16 at 20:54; Status DC Dextrose 12.5 gm PRN Q15MIN PRN IV SEE COMMENTS; Start 06/08/16 at 12:15 Ondansetron HCl 4 mg 4 mg PRN Q8HRS PRN IV NAUSEA/VOMITING; Start 06/08/16 at 12 :45; Stop 06/09/16 at 12:44; Status DC Piperacillin Sod/ Tazobactam Sod/ Sodium Chloride (Zosyn/Iv Sodium Chloride 0.9 % 50ml) 50 ml @ 100 mls/hr Q6HRS IV Last administered on 06/17/16 12:28; Start 06/10/16 at 12:00; Stop 06/17/16 at 13:13; Status DC Pantoprazole Sodium 40 mg 40 mg DAILYAC IVP Last administered on 06/20/16 09: 55; Start 06/10/16 at 11:00 Amino Acids/ Electrolytes/ Dextrose 1,000 ml @ 75 mls/hr [id number] PRN IV . Last administered on 06/14/16 20:34; Start 06/10/16 at 11:00; Stop 06/15/16 at 21:59; Status DC Sodium Chloride (Iv Sodium Chloride 0.9% 1000ml Bag) 1,000 ml @ 50 mls/hr Q20H IV Last administered on 06/20/16 03:05; Start 06/10/16 at 11:00 Naloxone HCl (Narcan) 0.4 mg PRN Q2MIN PRN IV SEE COMMENTS; Start 06/10/16 at 11 :30 Naloxone HCl 0.4 mg 0.4 mg 1X ONCE IV Last administered on 06/10/16 12:07; Start 06/10/16 at 12:00; Stop 06/10/16 at 12:01; Status DC Daptomycin 500 mg/ Sodium Chloride 50 ml @ 100 mls/hr Q24H IV Last administered on 06/10/16 14:56; Start 06/10/16 at 14:00; Stop 06/10/16 at 18:00; Status DC Metronidazole (FLAGYL 500Mmg PREMIX) 100 ml @ 100 mls/hr Q8H IV Last administered on 06/12/16 08:08; Start 06/10/16 at 16:00; Stop 06/12/16 at 09:07; Status DC Lorazepam (Ativan) 1 mg PRN Q4HRS PRN IV ANXIETY / AGITATION Last administered on 06/10/16 17:28; Start 06/10/16 at 17:00; Stop 06/12/16 at 09:19; Status DC Flumazenil 0.1 mg 0.1 mg 1X ONCE IV Last administered on 06/11/16 15:15; Start 06/11/16 at 14:30; Stop 06/11/16 at 14:33; Status DC Acyclovir Sodium/ Dextrose (Zovirax) 262.4 ml @ 262.4 mls/ hr Q8HRS IV Last administered on 06/17/16 05:10; Start 06/13/16 at 09:00; Stop 06/17/16 at 13:13 ; Status DC Alteplase, Recombinant (Cathflo) 2 mg 1X ONCE INT CAT Last administered on 06/13 16:14; Start 06/13/16 at 15:00; Stop 06/13/16 at 15:01; Status DC Insulin Aspart (Novolog) 0-9 UNITS QIDACHS SQ Last administered on 06/20/16 10 :10; Start 06/13/16 at 21:00 Info 1 each 1 each PRN DAILY PRN MC SEE COMMENTS Last administered on 11:18; Start 06/15/16 at 11:00 Sodium Chloride/ Potassium Chloride/ Potassium Phosphate/ Magnesium Sulfate/ Calcium Gluconate/ Multivitamins/ Chromium/Copper/ Manganese/Seleni/ Zn/Total Parenteral Nutrition/Amino Acids/Dextrose/ Fat Emulsion Intravenous (Sodium Chloride/ Potassium Phospha... 1,512 ml @ 63 mls/hr TPN CONT IV Last administered on 06/15/16 21:21; Start 06/15/16 at 22:00; Stop 06/16/16 at 21:59 ; Status DC Saliva Substitute 2 spray 2 spray PRN Q15MIN PRN PO DRY MOUTH; Start 06/16/16 at 11:15 Sodium Chloride/ Potassium Chloride/ Potassium Phosphate/ Magnesium Sulfate/ Calcium Gluconate/ Multivitamins/ Chromium/Copper/ Manganese/Seleni/ Zn/Total Parenteral Nutrition/Amino Acids/Dextrose/ Fat Emulsion Intravenous (Sodium Chloride/ Potassium Phospha... 1,512 ml @ 63 mls/hr TPN CONT IV Last administered on 06/16/16 22:11; Start 06/16/16 at 22:00; Stop 06/17/16 at 21:59 ; Status DC Insulin Detemir (Levemir) 8 units 1X ONCE SQ ; Start 06/16/16 at 15:00; Stop at 15:00; Status DC Insulin Detemir 12 units 12 units 1X ONCE SQ Last administered on 06/16/16 16 :31; Start 06/16/16 at 15:30; Stop 06/16/16 at 15:31; Status DC Sodium Chloride/ Potassium Chloride/ Potassium Phosphate/ Magnesium Sulfate/ Calcium Gluconate/ Multivitamins/ Chromium/Copper/ Manganese/Seleni/ Zn/Total Parenteral Nutrition/Amino Acids/Dextrose/ Fat Emulsion Intravenous (Sodium Chloride/ Potassium Phospha... 1,512 ml @ 63 mls/hr TPN CONT IV Last administered on 06/17/16 22:01; Start 06/17/16 at 22:00; Stop 06/18/16 at 21:59 ; Status DC Methylprednisolone Sodium Succinate 125 mg 125 mg 1X ONCE IV Last administered on 06/18/16 10:53; Start 06/18/16 at 09:45; Stop 06/18/16 at 09:46 ; Status DC Sodium Chloride 90 meq/Potassium Chloride 40 meq/ Potassium Phosphate 13.6 mmol/ Magnesium Sulfate 10 meq/ Calcium Gluconate 5 meq/ Multivitamins 10 ml/Chromium / Copper/Manganese/ Seleni/Zn 1 ml/ Total Parenteral Nutrition/Amino Acids/ Dextrose/ Fat Emulsion Intravenous 1,512 ml @ 63 mls/hr TPN CONT IV Last administered on 06/18/16 21:16; Start 06/18/16 at 22:00; Stop 06/19/16 at 21:59 ; Status DC Sodium Chloride/ Potassium Chloride/ Potassium Phosphate/ Magnesium Sulfate/ Calcium Gluconate/ Multivitamins/ Chromium/Copper/ Manganese/Seleni/ Zn/Total Parenteral Nutrition/Amino Acids/Dextrose/ Fat Emulsion Intravenous (Sodium Chloride/ Potassium Phospha... 1,512 ml @ 63 mls/hr TPN CONT IV Last administered on 06/19/16 20:42; Start 06/19/16 at 22:00; Stop 06/20/16 at 21:59 Methylprednisolone Sodium Succinate (Solu-Medrol 40mg Vial) 40 mg Q8HRS IV Last administered on 06/20/16 06:16; Start 06/19/16 at 14:00 Barium Sulfate (Varibar Thin Liquid) 148 gm 1X ONCE PO Last administered on 11:30; Start 06/19/16 at 11:30; Stop 06/19/16 at 11:32; Status DC Active Scripts Active Ciprofloxacin 250 Mg/5 Ml Christina.mc.rec 250 Mg PO BID Children's Aspirin (Aspirin) 81 Mg Tab.chew 81 Mg PO DAILYWBKFT 30 Days Glipizide Er (Glipizide) 5 Mg Tab.er.24 10 Mg PO DAILY Reported Pravachol (Pravastatin Sodium) 80 Mg Tablet 80 Mg PO DAILY Multi-Vitamin Daily (Multivitamin) 1 Each Tablet 1 Each PO DAILY Lisinopril 5 Mg Tablet 5 Mg PO DAILY Flonase (Fluticasone Propionate) 16 Gm [place].susp 2 [place] NS DAILY Famotidine 40 Mg Tablet 40 Mg PO DAILY Cymbalta (Duloxetine Hcl) 60 Mg Capsule.dr 60 Mg PO DAILY Docusate Sodium 100 Mg Capsule 100 Mg PO DAILY Fish Oil Concentrate Softgel (Docosahexanoic Acid/Epa) 1 Each Capsule 1 Each PO DAILY Caltrate 600 + D Tablet (Calcium Carbonate/Vitamin D3) 1 Each Tablet 1 Each PO DAILY Vitals/I & O Vital Sign - Last 24 Hours 06/19/16 06/19/16 06/19/16 06/19/16 11:00 15:00 19:00 23:00 Temp 97.5 98.1 98.5 98.2 97.5 98.1 98.5 98.2 Pulse 67 75 71 64 Resp 16 16 18 18 B/P 135/43 134/58 124/54 137/48 Pulse Ox 96 93 94 96 O2 Delivery Room Air Room Air Room Air Room Air 06/20/16 06/20/16 06/20/16 03:00 07:00 08:00 Temp 98.1 97.7 98.1 97.7 Pulse 48 64 Resp 18 18 B/P 178/62 158/62 Pulse Ox 90 95 O2 Delivery Room Air Room Air Room Air Intake and Output 06/19/16 06/19/16 06/20/16 15:00 23:00 07:00 Intake Total 2568 ml 0 ml Balance 2568 ml 0 ml Problem List Problems Medical Problems: (1) Fall Status: Acute (2) Fall (on) (from) other stairs and steps, initial encounter Status: Acute (3) Ribs, multiple fractures Status: Acute Assessment Seems brighter mentally. Stable gI-chaney. Plan of Care: Continue current Tx, Mgmt Plan of Care Note Recheck swallow now that awake? JOSÉ LEON MD Jun 20, 2016 10:58
[2016-06-20 11:00] VITALS: BP 153/46
--- NOTE | 2016-06-20 11:30 | PDOC ---
PROGRESS NOTES Assessment Problems Medical Problems: (1) Fall Status: Acute (2) Fall (on) (from) other stairs and steps, initial encounter Status: Acute (3) Ribs, multiple fractures Status: Acute Metabolic encephalopathy. No sign of HSV encephalitis Dysphagia Plan PEG Further wrokup for neuromuscular disease or stroke if dysphagia persists Subjective no complaints Objective Vital Signs Date Time Temp Pulse Resp B/P Pulse Ox O2 Delivery O2 Flow Rate FiO2 06/20/16 08:00 Room Air 06/20/16 07:00 97.7 64 18 158/62 95 97.7 Intake and Output 06/20/16 07:00 Intake Total 2568 ml Balance 2568 ml Intake Oral 0 ml IV Total 2568 ml # Voids 4 # Bowel Movements 1 PHYSICAL EXAM Alert. Knows location, person, 1 day off on date PERRL. EOMI. CN: no focal findings. Muscle tone: normal. Muscle strength: 4/5 DTR: 1+ Plantar reflex: flexor Gait: not examined in bed. Sensory exam: no abnormal findings. No cerebellar signs elicited. Review of Relevant I have reviewed the following items quincy (where applicable) has been applied. Labs Laboratory Tests Test 06/18/16 16:29 06/18/16 21:27 06/19/16 05:30 06/19/16 08:22 Glucose (Fingerstick) 307mg/dL (70-99) 342mg/dL (70-99) 288mg/dL (70-99) Sodium Level 136mmol/L (136-145) Potassium Level 4.7mmol/L (3.5-5.1) Chloride Level 104mmol/L (98-107) Carbon Dioxide Level 23mmol/L (21-32) Anion Gap 9 (6-14) Blood Urea Nitrogen 24mg/dL (7-20) Creatinine 0.9mg/dL (0.6-1.0) Estimated GFR (Cockcroft-Gault) 59.9 Glucose Level 316mg/dL (70-99) Calcium Level 9.4mg/dL (8.5-10.1) Phosphorus Level 2.9mg/dL (2.6-4.7) Magnesium Level 1.9mg/dL (1.8-2.4) Test 06/19/16 11:26 06/19/16 16:17 06/19/16 20:33 06/20/16 00:19 Glucose (Fingerstick) 252mg/dL (70-99) 296mg/dL (70-99) 308mg/dL (70-99) 290mg/dL (70-99) Test 06/20/16 04:10 06/20/16 06:43 06/20/16 11:21 Sodium Level 136mmol/L (136-145) Potassium Level 5.4mmol/L (3.5-5.1) Chloride Level 103mmol/L (98-107) Carbon Dioxide Level 26mmol/L (21-32) Anion Gap 7 (6-14) Blood Urea Nitrogen 24mg/dL (7-20) Creatinine 0.8mg/dL (0.6-1.0) Estimated GFR (Cockcroft-Gault) 68.7 Glucose Level 326mg/dL (70-99) Calcium Level 9.2mg/dL (8.5-10.1) Phosphorus Level 3.2mg/dL (2.6-4.7) Magnesium Level 1.8mg/dL (1.8-2.4) Glucose (Fingerstick) 299mg/dL (70-99) 315mg/dL (70-99) Laboratory Tests Test 06/19/16 16:17 06/19/16 20:33 06/20/16 00:19 06/20/16 04:10 Glucose (Fingerstick) 296mg/dL (70-99) 308mg/dL (70-99) 290mg/dL (70-99) Sodium Level 136mmol/L (136-145) Potassium Level 5.4mmol/L (3.5-5.1) Chloride Level 103mmol/L (98-107) Carbon Dioxide Level 26mmol/L (21-32) Anion Gap 7 (6-14) Blood Urea Nitrogen 24mg/dL (7-20) Creatinine 0.8mg/dL (0.6-1.0) Estimated GFR (Cockcroft-Gault) 68.7 Glucose Level 326mg/dL (70-99) Calcium Level 9.2mg/dL (8.5-10.1) Phosphorus Level 3.2mg/dL (2.6-4.7) Magnesium Level 1.8mg/dL (1.8-2.4) Test 06/20/16 06:43 06/20/16 11:21 Glucose (Fingerstick) 299mg/dL (70-99) 315mg/dL (70-99) Microbiology 06/10/16 Blood Culture - Final, Complete NO GROWTH AFTER 5 DAYS 06/11/16 Gram Stain - Final, Complete 06/08/16 Urine Culture - Final, Complete 06/08/16 Urine Culture Result 1 (ALEJO) - Final, Complete Medications Current Medications Lidocaine (Lidoderm) 1 patch 1X ONCE TD Last administered on 06/08/16 09:12; Start 06/08/16 at 09:00; Stop 06/08/16 at 09:01; Status DC Acetaminophen (Tylenol) 1,000 mg 1X ONCE PO Last administered on 06/08/16 09: 12; Start 06/08/16 at 09:00; Stop 06/08/16 at 09:01; Status DC Oxycodone/ Acetaminophen (Percocet 5/325) 1 tab 1X ONCE PO Last administered on 06/08/16 10:00; Start 06/08/16 at 10:00; Stop 06/08/16 at 10:01; Status DC Ondansetron HCl (Zofran) 4 mg PRN Q6HRS PRN IV NAUSEA/VOMITING; Start 06/08/16 at 12:00; Stop 06/12/16 at 09:19; Status DC Al Hydrox/Mg Hydrox/Simethicone (Mylanta Plus Xs) 30 ml PRN Q3HRS PRN PO HEARTBURN / GAS; Start 06/08/16 at 12:00; Stop 06/12/16 at 09:19; Status DC Calcium Carbonate/ Glycine (Tums) 500 mg PRN Q3HRS PRN PO UPSET STOMACH; Start 06/08/16 at 12:00; Stop 06/12/16 at 09:19; Status DC Oxycodone HCl (Roxicodone) 5 mg PRN Q3HRS PRN PO BREAKTHROUGH PAIN; Start at 12:00; Stop 06/12/16 at 09:19; Status DC Morphine Sulfate 1 mg PRN Q2HR PRN IV PAIN; Start 06/08/16 at 12:00; Stop at 09:19; Status DC Oxycodone/ Acetaminophen (Percocet 5/325) 1 tab PRN Q4HRS PRN PO MILD PAIN, 1ST CHOICE Last administered on 06/09/16 15:03; Start 06/08/16 at 12:00; Stop 06/12/16 at 09:19; Status DC Docusate Sodium (Colace) 100 mg BID PO ; Start 06/08/16 at 21:00; Status Cancel Magnesium Hydroxide (Milk Of Magnesia) 2,400 mg PRN Q12HR PRN PO CONSTIPATION; Start 06/08/16 at 12:00; Stop 06/12/16 at 09:19; Status DC Lactulose 20 gm PRN Q12HR PRN PO CONSTIPATION; Start 06/08/16 at 12:00; Stop 06/12/16 at 09:19; Status DC Bisacodyl (Dulcolax Supp) 10 mg PRN DAILY PRN NM CONSTIPATION; Start 06/08/16 at 12:00; Stop 06/12/16 at 09:19; Status DC Enoxaparin Sodium (Lovenox 40mg Syringe) 40 mg DAILY16 SQ Last administered on 06/09/16 15:03; Start 06/08/16 at 16:00; Stop 06/10/16 at 12:52; Status DC Lidocaine (Lidoderm) 1 patch DAILY TD Last administered on 06/09/16 07:41; Start 06/08/16 at 13:00 Aspirin (Children'S Aspirin) 81 mg DAILYWBKFT PO Last administered on 06/09/16 07:41; Start 06/08/16 at 13:00 Docusate Sodium (Colace) 100 mg DAILY PO Last administered on 06/09/16 09:00; Start 06/09/16 at 09:00 Fluticasone Propionate (Flonase) 2 spray DAILY NS Last administered on 09:17; Start 06/08/16 at 13:00 Glipizide (Glucotrol Er) 10 mg DAILY08 PO Last administered on 06/09/16 07:38; Start 06/08/16 at 13:00 Lisinopril (Prinivil) 5 mg DAILY PO Last administered on 06/09/16 07:39; Start 06/08/16 at 13:00 Calcium/Vitamin D (Oscal D 500mg/ 200uts) 1 tab DAILY PO Last administered on 07:39; Start 06/08/16 at 13:00 Fish Oil (Fish Oil) 1,000 mg DAILY PO Last administered on 06/09/16 07:38; Start 06/08/16 at 13:00 Duloxetine HCl (Cymbalta) 60 mg DAILY PO Last administered on 06/09/16 07:40; Start 06/08/16 at 13:00 Famotidine (Pepcid) 40 mg DAILY PO Last administered on 06/09/16 07:40; Start 06/08/16 at 13:00; Stop 06/10/16 at 11:55; Status DC Multivitamins/ Calcium (Thera M Plus) 1 tab DAILY PO Last administered on 07:39; Start 06/08/16 at 13:00 Atorvastatin Calcium (Lipitor) 20 mg QHS PO Last administered on 06/08/16 20:56 ; Start 06/08/16 at 21:00 Insulin Aspart (Novolog) 0-9 UNITS TIDWMEALS SQ Last administered on 06/13/16 17:49; Start 06/08/16 at 12:30; Stop 06/13/16 at 20:54; Status DC Dextrose 12.5 gm PRN Q15MIN PRN IV SEE COMMENTS; Start 06/08/16 at 12:15 Ondansetron HCl 4 mg 4 mg PRN Q8HRS PRN IV NAUSEA/VOMITING; Start 06/08/16 at 12 :45; Stop 06/09/16 at 12:44; Status DC Piperacillin Sod/ Tazobactam Sod/ Sodium Chloride (Zosyn/Iv Sodium Chloride 0.9 % 50ml) 50 ml @ 100 mls/hr Q6HRS IV Last administered on 06/17/16 12:28; Start 06/10/16 at 12:00; Stop 06/17/16 at 13:13; Status DC Pantoprazole Sodium 40 mg 40 mg DAILYAC IVP Last administered on 06/20/16 09: 55; Start 06/10/16 at 11:00 Amino Acids/ Electrolytes/ Dextrose 1,000 ml @ 75 mls/hr [id number] PRN IV . Last administered on 06/14/16 20:34; Start 06/10/16 at 11:00; Stop 06/15/16 at 21:59; Status DC Sodium Chloride (Iv Sodium Chloride 0.9% 1000ml Bag) 1,000 ml @ 50 mls/hr Q20H IV Last administered on 06/20/16 03:05; Start 06/10/16 at 11:00 Naloxone HCl (Narcan) 0.4 mg PRN Q2MIN PRN IV SEE COMMENTS; Start 06/10/16 at 11 :30 Naloxone HCl 0.4 mg 0.4 mg 1X ONCE IV Last administered on 06/10/16 12:07; Start 06/10/16 at 12:00; Stop 06/10/16 at 12:01; Status DC Daptomycin 500 mg/ Sodium Chloride 50 ml @ 100 mls/hr Q24H IV Last administered on 06/10/16 14:56; Start 06/10/16 at 14:00; Stop 06/10/16 at 18:00; Status DC Metronidazole (FLAGYL 500Mmg PREMIX) 100 ml @ 100 mls/hr Q8H IV Last administered on 06/12/16 08:08; Start 06/10/16 at 16:00; Stop 06/12/16 at 09:07; Status DC Lorazepam (Ativan) 1 mg PRN Q4HRS PRN IV ANXIETY / AGITATION Last administered on 06/10/16 17:28; Start 06/10/16 at 17:00; Stop 06/12/16 at 09:19; Status DC Flumazenil 0.1 mg 0.1 mg 1X ONCE IV Last administered on 06/11/16 15:15; Start 06/11/16 at 14:30; Stop 06/11/16 at 14:33; Status DC Acyclovir Sodium/ Dextrose (Zovirax) 262.4 ml @ 262.4 mls/ hr Q8HRS IV Last administered on 06/17/16 05:10; Start 06/13/16 at 09:00; Stop 06/17/16 at 13:13 ; Status DC Alteplase, Recombinant (Cathflo) 2 mg 1X ONCE INT CAT Last administered on 06/13 16:14; Start 06/13/16 at 15:00; Stop 06/13/16 at 15:01; Status DC Insulin Aspart (Novolog) 0-9 UNITS QIDACHS SQ Last administered on 06/20/16 10 :10; Start 06/13/16 at 21:00 Info 1 each 1 each PRN DAILY PRN MC SEE COMMENTS Last administered on 11:18; Start 06/15/16 at 11:00 Sodium Chloride/ Potassium Chloride/ Potassium Phosphate/ Magnesium Sulfate/ Calcium Gluconate/ Multivitamins/ Chromium/Copper/ Manganese/Seleni/ Zn/Total Parenteral Nutrition/Amino Acids/Dextrose/ Fat Emulsion Intravenous (Sodium Chloride/ Potassium Phospha... 1,512 ml @ 63 mls/hr TPN CONT IV Last administered on 06/15/16 21:21; Start 06/15/16 at 22:00; Stop 06/16/16 at 21:59 ; Status DC Saliva Substitute 2 spray 2 spray PRN Q15MIN PRN PO DRY MOUTH; Start 06/16/16 at 11:15 Sodium Chloride/ Potassium Chloride/ Potassium Phosphate/ Magnesium Sulfate/ Calcium Gluconate/ Multivitamins/ Chromium/Copper/ Manganese/Seleni/ Zn/Total Parenteral Nutrition/Amino Acids/Dextrose/ Fat Emulsion Intravenous (Sodium Chloride/ Potassium Phospha... 1,512 ml @ 63 mls/hr TPN CONT IV Last administered on 06/16/16 22:11; Start 06/16/16 at 22:00; Stop 06/17/16 at 21:59 ; Status DC Insulin Detemir (Levemir) 8 units 1X ONCE SQ ; Start 06/16/16 at 15:00; Stop at 15:00; Status DC Insulin Detemir 12 units 12 units 1X ONCE SQ Last administered on 06/16/16 16 :31; Start 06/16/16 at 15:30; Stop 06/16/16 at 15:31; Status DC Sodium Chloride/ Potassium Chloride/ Potassium Phosphate/ Magnesium Sulfate/ Calcium Gluconate/ Multivitamins/ Chromium/Copper/ Manganese/Seleni/ Zn/Total Parenteral Nutrition/Amino Acids/Dextrose/ Fat Emulsion Intravenous (Sodium Chloride/ Potassium Phospha... 1,512 ml @ 63 mls/hr TPN CONT IV Last administered on 06/17/16 22:01; Start 06/17/16 at 22:00; Stop 06/18/16 at 21:59 ; Status DC Methylprednisolone Sodium Succinate 125 mg 125 mg 1X ONCE IV Last administered on 06/18/16 10:53; Start 06/18/16 at 09:45; Stop 06/18/16 at 09:46 ; Status DC Sodium Chloride 90 meq/Potassium Chloride 40 meq/ Potassium Phosphate 13.6 mmol/ Magnesium Sulfate 10 meq/ Calcium Gluconate 5 meq/ Multivitamins 10 ml/Chromium / Copper/Manganese/ Seleni/Zn 1 ml/ Total Parenteral Nutrition/Amino Acids/ Dextrose/ Fat Emulsion Intravenous 1,512 ml @ 63 mls/hr TPN CONT IV Last administered on 06/18/16 21:16; Start 06/18/16 at 22:00; Stop 06/19/16 at 21:59 ; Status DC Sodium Chloride/ Potassium Chloride/ Potassium Phosphate/ Magnesium Sulfate/ Calcium Gluconate/ Multivitamins/ Chromium/Copper/ Manganese/Seleni/ Zn/Total Parenteral Nutrition/Amino Acids/Dextrose/ Fat Emulsion Intravenous (Sodium Chloride/ Potassium Phospha... 1,512 ml @ 63 mls/hr TPN CONT IV Last administered on 06/19/16 20:42; Start 06/19/16 at 22:00; Stop 06/20/16 at 21:59 Methylprednisolone Sodium Succinate (Solu-Medrol 40mg Vial) 40 mg Q8HRS IV Last administered on 06/20/16 06:16; Start 06/19/16 at 14:00 Barium Sulfate (Varibar Thin Liquid) 148 gm 1X ONCE PO Last administered on 11:30; Start 06/19/16 at 11:30; Stop 06/19/16 at 11:32; Status DC Active Scripts Active Ciprofloxacin 250 Mg/5 Ml Christina..rec 250 Mg PO BID Children's Aspirin (Aspirin) 81 Mg Tab.chew 81 Mg PO DAILYWBKFT 30 Days Glipizide Er (Glipizide) 5 Mg Tab.er.24 10 Mg PO DAILY Reported Pravachol (Pravastatin Sodium) 80 Mg Tablet 80 Mg PO DAILY Multi-Vitamin Daily (Multivitamin) 1 Each Tablet 1 Each PO DAILY Lisinopril 5 Mg Tablet 5 Mg PO DAILY Flonase (Fluticasone Propionate) 16 Gm [place].susp 2 [place] NS DAILY Famotidine 40 Mg Tablet 40 Mg PO DAILY Cymbalta (Duloxetine Hcl) 60 Mg Capsule.dr 60 Mg PO DAILY Docusate Sodium 100 Mg Capsule 100 Mg PO DAILY Fish Oil Concentrate Softgel (Docosahexanoic Acid/Epa) 1 Each Capsule 1 Each PO DAILY Caltrate 600 + D Tablet (Calcium Carbonate/Vitamin D3) 1 Each Tablet 1 Each PO DAILY Vitals/I & O Vital Sign - Last 24 Hours 06/19/16 06/19/16 06/19/16 06/20/16 15:00 19:00 23:00 03:00 Temp 98.1 98.5 98.2 98.1 98.1 98.5 98.2 98.1 Pulse 75 71 64 48 Resp 16 18 18 18 B/P 134/58 124/54 137/48 178/62 Pulse Ox 93 94 96 90 O2 Delivery Room Air Room Air Room Air Room Air 06/20/16 06/20/16 07:00 08:00 Temp 97.7 97.7 Pulse 64 Resp 18 B/P 158/62 Pulse Ox 95 O2 Delivery Room Air Room Air Intake and Output 06/19/16 06/19/16 06/20/16 15:00 23:00 07:00 Intake Total 2568 ml 0 ml Balance 2568 ml 0 ml YOSVANY JENSEN MD Jun 20, 2016 11:30
[2016-06-20] MEDS: TPN PER PHARMACY MC PRN (11:45)
[2016-06-20 15:00] VITALS: BP 152/53
--- NOTE | 2016-06-20 16:23 | PDOC ---
PROGRESS NOTES Chief Complaint Chief Complaint acute metabolic encephalopathy s/p fall w/ rib fx ASSESSMENT AND PLAN: 1. R rib fxs # [id number] with smll PTX: 2/ fall. treat symptomatically. 2. Acute encephalopathy: unclear etiology. unlikely infectious with LP results from 06/11; neg MRI. appreciate Neuro and ID services' input. minimize sedating meds. MS fluctuating, c/w delirium 3. Dysphagia: failed swallow eval 2 days in a row. remains NPO for now. ST ongoing. TPN started 4. Leukocytosis: fluctuating around upper normal limit with absolute neutrophilia. ESR elevated, ? inflammation (vs infection). recheck in AM 5. Colitis: suspect ischemic with hematochezia, neg C. diff. essentially resolved 6. ANT: POA, susp vasomotor etiology. now resolved 7. Hyperkalemia: POA. much improved, now stable at upper normal limit 8. DM: poorly controlled on ISS only. oral glipizide currently on hold 2/ NPO. start levemir tonight 9. HTN: slowly improving. oral meds on hold for now 10. GERD: PPI 11. 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 Scoliosis 14. Dispo: D/C to SNU soon when acute issues resolved/addressed Vitals Vitals Vital Signs Date Time Temp Pulse Resp B/P Pulse Ox O2 Delivery O2 Flow Rate FiO2 06/20/16 15:00 98.0 64 18 152/53 99 Room Air 98.0 Physical Exam Physical Exam mildly confused, General: Alert, Cooperative, No acute distress Heart: Regular rate, Normal S1, Normal S2, No murmurs Lungs: Clear Abdomen: Normal bowel sounds, Soft, No tenderness, No masses Extremities: No cyanosis, No edema Skin: No breakdown, No significant lesion Labs LABS Laboratory Tests Test 06/19/16 16:17 06/19/16 20:33 06/20/16 00:19 06/20/16 04:10 Glucose (Fingerstick) 296mg/dL (70-99) 308mg/dL (70-99) 290mg/dL (70-99) Sodium Level 136mmol/L (136-145) Potassium Level 5.4mmol/L (3.5-5.1) Chloride Level 103mmol/L (98-107) Carbon Dioxide Level 26mmol/L (21-32) Anion Gap 7 (6-14) Blood Urea Nitrogen 24mg/dL (7-20) Creatinine 0.8mg/dL (0.6-1.0) Estimated GFR (Cockcroft-Gault) 68.7 Glucose Level 326mg/dL (70-99) Calcium Level 9.2mg/dL (8.5-10.1) Phosphorus Level 3.2mg/dL (2.6-4.7) Magnesium Level 1.8mg/dL (1.8-2.4) Test 06/20/16 06:43 06/20/16 11:21 Glucose (Fingerstick) 299mg/dL (70-99) 315mg/dL (70-99) Review of Systems Review of Systems feels ok, mildly confused Comment Review of Relevant I have reviewed the following items quincy (where applicable) has been applied. Labs Laboratory Tests Test 06/18/16 16:29 06/18/16 21:27 06/19/16 05:30 06/19/16 08:22 Glucose (Fingerstick) 307mg/dL (70-99) 342mg/dL (70-99) 288mg/dL (70-99) Sodium Level 136mmol/L (136-145) Potassium Level 4.7mmol/L (3.5-5.1) Chloride Level 104mmol/L (98-107) Carbon Dioxide Level 23mmol/L (21-32) Anion Gap 9 (6-14) Blood Urea Nitrogen 24mg/dL (7-20) Creatinine 0.9mg/dL (0.6-1.0) Estimated GFR (Cockcroft-Gault) 59.9 Glucose Level 316mg/dL (70-99) Calcium Level 9.4mg/dL (8.5-10.1) Phosphorus Level 2.9mg/dL (2.6-4.7) Magnesium Level 1.9mg/dL (1.8-2.4) Test 06/19/16 11:26 06/19/16 16:17 06/19/16 20:33 06/20/16 00:19 Glucose (Fingerstick) 252mg/dL (70-99) 296mg/dL (70-99) 308mg/dL (70-99) 290mg/dL (70-99) Test 06/20/16 04:10 06/20/16 06:43 06/20/16 11:21 Sodium Level 136mmol/L (136-145) Potassium Level 5.4mmol/L (3.5-5.1) Chloride Level 103mmol/L (98-107) Carbon Dioxide Level 26mmol/L (21-32) Anion Gap 7 (6-14) Blood Urea Nitrogen 24mg/dL (7-20) Creatinine 0.8mg/dL (0.6-1.0) Estimated GFR (Cockcroft-Gault) 68.7 Glucose Level 326mg/dL (70-99) Calcium Level 9.2mg/dL (8.5-10.1) Phosphorus Level 3.2mg/dL (2.6-4.7) Magnesium Level 1.8mg/dL (1.8-2.4) Glucose (Fingerstick) 299mg/dL (70-99) 315mg/dL (70-99) Laboratory Tests Test 06/19/16 16:17 06/19/16 20:33 06/20/16 00:19 06/20/16 04:10 Glucose (Fingerstick) 296mg/dL (70-99) 308mg/dL (70-99) 290mg/dL (70-99) Sodium Level 136mmol/L (136-145) Potassium Level 5.4mmol/L (3.5-5.1) Chloride Level 103mmol/L (98-107) Carbon Dioxide Level 26mmol/L (21-32) Anion Gap 7 (6-14) Blood Urea Nitrogen 24mg/dL (7-20) Creatinine 0.8mg/dL (0.6-1.0) Estimated GFR (Cockcroft-Gault) 68.7 Glucose Level 326mg/dL (70-99) Calcium Level 9.2mg/dL (8.5-10.1) Phosphorus Level 3.2mg/dL (2.6-4.7) Magnesium Level 1.8mg/dL (1.8-2.4) Test 06/20/16 06:43 06/20/16 11:21 Glucose (Fingerstick) 299mg/dL (70-99) 315mg/dL (70-99) Microbiology 06/10/16 Blood Culture - Final, Complete NO GROWTH AFTER 5 DAYS 06/11/16 Gram Stain - Final, Complete 06/08/16 Urine Culture - Final, Complete 06/08/16 Urine Culture Result 1 (ALEJO) - Final, Complete Medications Current Medications Lidocaine (Lidoderm) 1 patch 1X ONCE TD Last administered on 06/08/16 09:12; Start 06/08/16 at 09:00; Stop 06/08/16 at 09:01; Status DC Acetaminophen (Tylenol) 1,000 mg 1X ONCE PO Last administered on 06/08/16 09: 12; Start 06/08/16 at 09:00; Stop 06/08/16 at 09:01; Status DC Oxycodone/ Acetaminophen (Percocet 5/325) 1 tab 1X ONCE PO Last administered on 06/08/16 10:00; Start 06/08/16 at 10:00; Stop 06/08/16 at 10:01; Status DC Ondansetron HCl (Zofran) 4 mg PRN Q6HRS PRN IV NAUSEA/VOMITING; Start 06/08/16 at 12:00; Stop 06/12/16 at 09:19; Status DC Al Hydrox/Mg Hydrox/Simethicone (Mylanta Plus Xs) 30 ml PRN Q3HRS PRN PO HEARTBURN / GAS; Start 06/08/16 at 12:00; Stop 06/12/16 at 09:19; Status DC Calcium Carbonate/ Glycine (Tums) 500 mg PRN Q3HRS PRN PO UPSET STOMACH; Start 06/08/16 at 12:00; Stop 06/12/16 at 09:19; Status DC Oxycodone HCl (Roxicodone) 5 mg PRN Q3HRS PRN PO BREAKTHROUGH PAIN; Start at 12:00; Stop 06/12/16 at 09:19; Status DC Morphine Sulfate 1 mg PRN Q2HR PRN IV PAIN; Start 06/08/16 at 12:00; Stop at 09:19; Status DC Oxycodone/ Acetaminophen (Percocet 5/325) 1 tab PRN Q4HRS PRN PO MILD PAIN, 1ST CHOICE Last administered on 06/09/16 15:03; Start 06/08/16 at 12:00; Stop 06/12/16 at 09:19; Status DC Docusate Sodium (Colace) 100 mg BID PO ; Start 06/08/16 at 21:00; Status Cancel Magnesium Hydroxide (Milk Of Magnesia) 2,400 mg PRN Q12HR PRN PO CONSTIPATION; Start 06/08/16 at 12:00; Stop 06/12/16 at 09:19; Status DC Lactulose 20 gm PRN Q12HR PRN PO CONSTIPATION; Start 06/08/16 at 12:00; Stop 06/12/16 at 09:19; Status DC Bisacodyl (Dulcolax Supp) 10 mg PRN DAILY PRN RI CONSTIPATION; Start 06/08/16 at 12:00; Stop 06/12/16 at 09:19; Status DC Enoxaparin Sodium (Lovenox 40mg Syringe) 40 mg DAILY16 SQ Last administered on 06/09/16 15:03; Start 06/08/16 at 16:00; Stop 06/10/16 at 12:52; Status DC Lidocaine (Lidoderm) 1 patch DAILY TD Last administered on 06/09/16 07:41; Start 06/08/16 at 13:00 Aspirin (Children'S Aspirin) 81 mg DAILYWBKFT PO Last administered on 06/09/16 07:41; Start 06/08/16 at 13:00 Docusate Sodium (Colace) 100 mg DAILY PO Last administered on 06/09/16 09:00; Start 06/09/16 at 09:00 Fluticasone Propionate (Flonase) 2 spray DAILY NS Last administered on 09:17; Start 06/08/16 at 13:00 Glipizide (Glucotrol Er) 10 mg DAILY08 PO Last administered on 06/09/16 07:38; Start 06/08/16 at 13:00 Lisinopril (Prinivil) 5 mg DAILY PO Last administered on 06/09/16 07:39; Start 06/08/16 at 13:00 Calcium/Vitamin D (Oscal D 500mg/ 200uts) 1 tab DAILY PO Last administered on 07:39; Start 06/08/16 at 13:00 Fish Oil (Fish Oil) 1,000 mg DAILY PO Last administered on 06/09/16 07:38; Start 06/08/16 at 13:00 Duloxetine HCl (Cymbalta) 60 mg DAILY PO Last administered on 06/09/16 07:40; Start 06/08/16 at 13:00 Famotidine (Pepcid) 40 mg DAILY PO Last administered on 06/09/16 07:40; Start 06/08/16 at 13:00; Stop 06/10/16 at 11:55; Status DC Multivitamins/ Calcium (Thera M Plus) 1 tab DAILY PO Last administered on 07:39; Start 06/08/16 at 13:00 Atorvastatin Calcium (Lipitor) 20 mg QHS PO Last administered on 06/08/16 20:56 ; Start 06/08/16 at 21:00 Insulin Aspart (Novolog) 0-9 UNITS TIDWMEALS SQ Last administered on 06/13/16 17:49; Start 06/08/16 at 12:30; Stop 06/13/16 at 20:54; Status DC Dextrose 12.5 gm PRN Q15MIN PRN IV SEE COMMENTS; Start 06/08/16 at 12:15 Ondansetron HCl 4 mg 4 mg PRN Q8HRS PRN IV NAUSEA/VOMITING; Start 06/08/16 at 12 :45; Stop 06/09/16 at 12:44; Status DC Piperacillin Sod/ Tazobactam Sod/ Sodium Chloride (Zosyn/Iv Sodium Chloride 0.9 % 50ml) 50 ml @ 100 mls/hr Q6HRS IV Last administered on 06/17/16 12:28; Start 06/10/16 at 12:00; Stop 06/17/16 at 13:13; Status DC Pantoprazole Sodium 40 mg 40 mg DAILYAC IVP Last administered on 06/20/16 09: 55; Start 06/10/16 at 11:00 Amino Acids/ Electrolytes/ Dextrose 1,000 ml @ 75 mls/hr [id number] PRN IV . Last administered on 06/14/16 20:34; Start 06/10/16 at 11:00; Stop 06/15/16 at 21:59; Status DC Sodium Chloride (Iv Sodium Chloride 0.9% 1000ml Bag) 1,000 ml @ 50 mls/hr Q20H IV Last administered on 06/20/16 03:05; Start 06/10/16 at 11:00 Naloxone HCl (Narcan) 0.4 mg PRN Q2MIN PRN IV SEE COMMENTS; Start 06/10/16 at 11 :30 Naloxone HCl 0.4 mg 0.4 mg 1X ONCE IV Last administered on 06/10/16 12:07; Start 06/10/16 at 12:00; Stop 06/10/16 at 12:01; Status DC Daptomycin 500 mg/ Sodium Chloride 50 ml @ 100 mls/hr Q24H IV Last administered on 06/10/16 14:56; Start 06/10/16 at 14:00; Stop 06/10/16 at 18:00; Status DC Metronidazole (FLAGYL 500Mmg PREMIX) 100 ml @ 100 mls/hr Q8H IV Last administered on 06/12/16 08:08; Start 06/10/16 at 16:00; Stop 06/12/16 at 09:07; Status DC Lorazepam (Ativan) 1 mg PRN Q4HRS PRN IV ANXIETY / AGITATION Last administered on 06/10/16 17:28; Start 06/10/16 at 17:00; Stop 06/12/16 at 09:19; Status DC Flumazenil 0.1 mg 0.1 mg 1X ONCE IV Last administered on 06/11/16 15:15; Start 06/11/16 at 14:30; Stop 06/11/16 at 14:33; Status DC Acyclovir Sodium/ Dextrose (Zovirax) 262.4 ml @ 262.4 mls/ hr Q8HRS IV Last administered on 06/17/16 05:10; Start 06/13/16 at 09:00; Stop 06/17/16 at 13:13 ; Status DC Alteplase, Recombinant (Cathflo) 2 mg 1X ONCE INT CAT Last administered on 06/13 16:14; Start 06/13/16 at 15:00; Stop 06/13/16 at 15:01; Status DC Insulin Aspart (Novolog) 0-9 UNITS QIDACHS SQ Last administered on 06/20/16 11 :30; Start 06/13/16 at 21:00 Info 1 each 1 each PRN DAILY PRN MC SEE COMMENTS Last administered on 11:45; Start 06/15/16 at 11:00 Sodium Chloride/ Potassium Chloride/ Potassium Phosphate/ Magnesium Sulfate/ Calcium Gluconate/ Multivitamins/ Chromium/Copper/ Manganese/Seleni/ Zn/Total Parenteral Nutrition/Amino Acids/Dextrose/ Fat Emulsion Intravenous (Sodium Chloride/ Potassium Phospha... 1,512 ml @ 63 mls/hr TPN CONT IV Last administered on 06/15/16 21:21; Start 06/15/16 at 22:00; Stop 06/16/16 at 21:59 ; Status DC Saliva Substitute 2 spray 2 spray PRN Q15MIN PRN PO DRY MOUTH; Start 06/16/16 at 11:15 Sodium Chloride/ Potassium Chloride/ Potassium Phosphate/ Magnesium Sulfate/ Calcium Gluconate/ Multivitamins/ Chromium/Copper/ Manganese/Seleni/ Zn/Total Parenteral Nutrition/Amino Acids/Dextrose/ Fat Emulsion Intravenous (Sodium Chloride/ Potassium Phospha... 1,512 ml @ 63 mls/hr TPN CONT IV Last administered on 06/16/16 22:11; Start 06/16/16 at 22:00; Stop 06/17/16 at 21:59 ; Status DC Insulin Detemir (Levemir) 8 units 1X ONCE SQ ; Start 06/16/16 at 15:00; Stop at 15:00; Status DC Insulin Detemir 12 units 12 units 1X ONCE SQ Last administered on 06/16/16 16 :31; Start 06/16/16 at 15:30; Stop 06/16/16 at 15:31; Status DC Sodium Chloride/ Potassium Chloride/ Potassium Phosphate/ Magnesium Sulfate/ Calcium Gluconate/ Multivitamins/ Chromium/Copper/ Manganese/Seleni/ Zn/Total Parenteral Nutrition/Amino Acids/Dextrose/ Fat Emulsion Intravenous (Sodium Chloride/ Potassium Phospha... 1,512 ml @ 63 mls/hr TPN CONT IV Last administered on 06/17/16 22:01; Start 06/17/16 at 22:00; Stop 06/18/16 at 21:59 ; Status DC Methylprednisolone Sodium Succinate 125 mg 125 mg 1X ONCE IV Last administered on 06/18/16 10:53; Start 06/18/16 at 09:45; Stop 06/18/16 at 09:46 ; Status DC Sodium Chloride 90 meq/Potassium Chloride 40 meq/ Potassium Phosphate 13.6 mmol/ Magnesium Sulfate 10 meq/ Calcium Gluconate 5 meq/ Multivitamins 10 ml/Chromium / Copper/Manganese/ Seleni/Zn 1 ml/ Total Parenteral Nutrition/Amino Acids/ Dextrose/ Fat Emulsion Intravenous 1,512 ml @ 63 mls/hr TPN CONT IV Last administered on 06/18/16 21:16; Start 06/18/16 at 22:00; Stop 06/19/16 at 21:59 ; Status DC Sodium Chloride/ Potassium Chloride/ Potassium Phosphate/ Magnesium Sulfate/ Calcium Gluconate/ Multivitamins/ Chromium/Copper/ Manganese/Seleni/ Zn/Total Parenteral Nutrition/Amino Acids/Dextrose/ Fat Emulsion Intravenous (Sodium Chloride/ Potassium Phospha... 1,512 ml @ 63 mls/hr TPN CONT IV Last administered on 06/19/16 20:42; Start 06/19/16 at 22:00; Stop 06/20/16 at 21:59 Methylprednisolone Sodium Succinate (Solu-Medrol 40mg Vial) 40 mg Q8HRS IV Last administered on 06/20/16 14:20; Start 06/19/16 at 14:00 Barium Sulfate 148 gm 148 gm 1X ONCE PO Last administered on 06/19/16 11:30; Start 06/19/16 at 11:30; Stop 06/19/16 at 11:32; Status DC Sodium Chloride/ Potassium Phosphate/ Magnesium Sulfate/ Calcium Gluconate/ Multivitamins/ Chromium/Copper/ Manganese/Seleni/ Zn/Total Parenteral Nutrition/ Amino Acids/Dextrose/ Fat Emulsion Intravenous (Sodium Chloride/ Potassium Phosphate/ Infuvite Adult/ Multitrace-5 Co... 1,512 ml @ 63 mls/hr TPN CONT IV ; Start 06/20/16 at 22:00; Stop 06/21/16 at 21:59 Active Scripts Active Ciprofloxacin 250 Mg/5 Ml Christina.mc.rec 250 Mg PO BID Children's Aspirin (Aspirin) 81 Mg Tab.chew 81 Mg PO DAILYWBKFT 30 Days Glipizide Er (Glipizide) 5 Mg Tab.er.24 10 Mg PO DAILY Reported Pravachol (Pravastatin Sodium) 80 Mg Tablet 80 Mg PO DAILY Multi-Vitamin Daily (Multivitamin) 1 Each Tablet 1 Each PO DAILY Lisinopril 5 Mg Tablet 5 Mg PO DAILY Flonase (Fluticasone Propionate) 16 Gm [place].susp 2 [place] NS DAILY Famotidine 40 Mg Tablet 40 Mg PO DAILY Cymbalta (Duloxetine Hcl) 60 Mg Capsule.dr 60 Mg PO DAILY Docusate Sodium 100 Mg Capsule 100 Mg PO DAILY Fish Oil Concentrate Softgel (Docosahexanoic Acid/Epa) 1 Each Capsule 1 Each PO DAILY Caltrate 600 + D Tablet (Calcium Carbonate/Vitamin D3) 1 Each Tablet 1 Each PO DAILY Vitals/I & O Vital Sign - Last 24 Hours 06/19/16 06/19/16 06/20/16 06/20/16 19:00 23:00 03:00 07:00 Temp 98.5 98.2 98.1 97.7 98.5 98.2 98.1 97.7 Pulse 71 64 48 64 Resp 18 18 18 18 B/P 124/54 137/48 178/62 158/62 Pulse Ox 94 96 90 95 O2 Delivery Room Air Room Air Room Air Room Air 06/20/16 06/20/16 06/20/16 08:00 11:00 15:00 Temp 98.1 98.0 98.1 98.0 Pulse 56 64 Resp 18 18 B/P 153/46 152/53 Pulse Ox 96 99 O2 Delivery Room Air Room Air Room Air Intake and Output 06/19/16 06/19/16 06/20/16 15:00 23:00 07:00 Intake Total 2568 ml 0 ml Balance 2568 ml 0 ml EDDIE CHAVEZ MD Jun 20, 2016 16:23
[2016-06-20 19:15] VITALS: BP 135/51
[2016-06-20] MEDS: ATORVASTATIN CALCIUM 20 MG TABLET PO SCH (20:58)
[2016-06-20] MEDS ORDERED: INSULIN DETEMIR 300 UNITS/3 ML INSULN.PEN. SQ SCH (21:00)
[2016-06-20] MEDS ORDERED: DEXTROSE 70% IV SCH ×9 (22:00)
[2016-06-20] MEDS ORDERED: AMINO ACIDS IV SCH ×9 (22:00)
[2016-06-20] MEDS ORDERED: TOTAL PARENTERAL NUTRITION IV SCH ×9 (22:00)
[2016-06-20] MEDS ORDERED: [UNRECOGNIZED DRUG - OTHER] IV SCH ×9 (22:00)
[2016-06-20 23:20] VITALS: BP 139/54
[2016-06-21 03:31] VITALS: BP 134/47
[2016-06-21] MEDS: methylPREDNISolone SOD SUCC PF 40 MG/ML VIAL. IV SCH ×3 (05:38→21:23)
[2016-06-21 06:30] LABS: BASO % 0 % (0-3); EOS % 0 % (0-3); HEMATOCRIT 34.9 % (36.0-47.0); HEMOGLOBIN 11.5 g/dL (12.0-15.5); LYMPH # 1.5 x10^3/uL (1.0-4.8); LYMPH % 12 % (24-48); MEAN CORPUSCULAR HEMOGLOBIN 31 pg (25-35); MEAN CORPUSCULAR HGB CONC 33 g/dL (31-37); MEAN CORPUSCULAR VOLUME 93 fL (79-100); MONO % 6 % (0-9); NEUT % 83 % (31-73); PLATELET COUNT 294 x10^3/uL (140-400); RED BLOOD COUNT 3.77 x10^6/uL (3.50-5.40); RED CELL DISTRIBUTION WIDTH 13.3 % (11.5-14.5); WHITE BLOOD COUNT 12.8 x10^3/uL (4.0-11.0)
[2016-06-21 06:56] LABS: CALCIUM 9.2 mg/dL (8.5-10.1); CREATININE 0.8 mg/dL (0.6-1.0); GFR 68.7; MAGNESIUM 1.9 mg/dL (1.8-2.4); PHOSPHORUS 3.3 mg/dL (2.6-4.7); POTASSIUM 4.4 mmol/L (3.5-5.1)
[2016-06-21 07:00] VITALS: BP 134/55
[2016-06-21] MEDS: GLIPIZIDE ER 5 MG TAB.ER.24 PO SCH (08:00)
[2016-06-21] MEDS: ASPIRIN 81 MG TAB.CHEW PO SCH (08:00)
[2016-06-21] MEDS: OMEGA-3 FATTY ACIDS/FISH OIL 1,000 MG CAPSULE. PO SCH (09:00)
[2016-06-21] MEDS: DOCUSATE SODIUM 100 MG CAPSULE PO SCH (09:00)
[2016-06-21] MEDS: LISINOPRIL 5 MG TABLET. PO SCH (09:00)
[2016-06-21] MEDS: DULOXETINE HCL 30 MG CAPSULE.DR. PO SCH (09:00)
[2016-06-21] MEDS: LIDOCAINE (700MG/PATCH) PATCH. TD SCH (09:00)
[2016-06-21] MEDS: MULTIVITAMIN with MINERAL TABLET. PO SCH (09:00)
[2016-06-21] MEDS: CALCIUM CARB/VIT D3 500/200 TABLET PO SCH (09:00)
[2016-06-21] MEDS: PANTOPRAZOLE IV PUSH 40 MG VIAL. IVP SCH (09:05)
[2016-06-21] MEDS: INSULIN ASPART 300 UNITS/3 ML INSULN.PEN SQ SCH ×4 (09:22→21:22)
[2016-06-21] MEDS: FLUTICASONE 50MCG/NASAL SPRAY 16GM BOTTLE. NS SCH (09:22)
[2016-06-21 11:00] VITALS: BP 130/69
--- NOTE | 2016-06-21 13:31 | PDOC ---
G I PROGRESS NOTE Subjective Awakens, pleasant, but remains quite "fuzzy". Physical Exam Lungs clear. RRR Abdomen soft, not distended nor tender. Review of Relevant I have reviewed the following items quincy (where applicable) has been applied. Labs Laboratory Tests Test 06/19/16 16:17 06/19/16 20:33 06/20/16 00:19 06/20/16 04:10 Glucose (Fingerstick) 296mg/dL (70-99) 308mg/dL (70-99) 290mg/dL (70-99) Sodium Level 136mmol/L (136-145) Potassium Level 5.4mmol/L (3.5-5.1) Chloride Level 103mmol/L (98-107) Carbon Dioxide Level 26mmol/L (21-32) Anion Gap 7 (6-14) Blood Urea Nitrogen 24mg/dL (7-20) Creatinine 0.8mg/dL (0.6-1.0) Estimated GFR (Cockcroft-Gault) 68.7 Glucose Level 326mg/dL (70-99) Calcium Level 9.2mg/dL (8.5-10.1) Phosphorus Level 3.2mg/dL (2.6-4.7) Magnesium Level 1.8mg/dL (1.8-2.4) Test 06/20/16 06:43 06/20/16 11:21 06/20/16 16:13 06/20/16 21:26 Glucose (Fingerstick) 299mg/dL (70-99) 315mg/dL (70-99) 283mg/dL (70-99) 279mg/dL (70-99) Test 06/21/16 06:00 06/21/16 07:58 06/21/16 11:46 White Blood Count 12.8x10^3/uL (4.0-11.0) Red Blood Count 3.77x10^6/uL (3.50-5.40) Hemoglobin 11.5g/dL (12.0-15.5) Hematocrit 34.9% (36.0-47.0) Mean Corpuscular Volume 93fL (79-100) Mean Corpuscular Hemoglobin 31pg (25-35) Mean Corpuscular Hemoglobin Concent 33g/dL (31-37) Red Cell Distribution Width 13.3% (11.5-14.5) Platelet Count 294x10^3/uL (140-400) Neutrophils (%) (Auto) 83% (31-73) Lymphocytes (%) (Auto) 12% (24-48) Monocytes (%) (Auto) 6% (0-9) Eosinophils (%) (Auto) 0% (0-3) Basophils (%) (Auto) 0% (0-3) Neutrophils # (Auto) 10.6x10^3uL (1.8-7.7) Lymphocytes # (Auto) 1.5x10^3/uL (1.0-4.8) Monocytes # (Auto) 0.7x10^3/uL (0.0-1.1) Eosinophils # (Auto) 0.0x10^3/uL (0.0-0.7) Basophils # (Auto) 0.0x10^3/uL (0.0-0.2) Sodium Level 139mmol/L (136-145) Potassium Level 4.4mmol/L (3.5-5.1) Chloride Level 105mmol/L (98-107) Carbon Dioxide Level 23mmol/L (21-32) Anion Gap 11 (6-14) Blood Urea Nitrogen 26mg/dL (7-20) Creatinine 0.8mg/dL (0.6-1.0) Estimated GFR (Cockcroft-Gault) 68.7 Glucose Level 316mg/dL (70-99) Calcium Level 9.2mg/dL (8.5-10.1) Phosphorus Level 3.3mg/dL (2.6-4.7) Magnesium Level 1.9mg/dL (1.8-2.4) Glucose (Fingerstick) 288mg/dL (70-99) 265mg/dL (70-99) Laboratory Tests Test 06/20/16 16:13 06/20/16 21:26 06/21/16 06:00 06/21/16 07:58 Glucose (Fingerstick) 283mg/dL (70-99) 279mg/dL (70-99) 288mg/dL (70-99) White Blood Count 12.8x10^3/uL (4.0-11.0) Red Blood Count 3.77x10^6/uL (3.50-5.40) Hemoglobin 11.5g/dL (12.0-15.5) Hematocrit 34.9% (36.0-47.0) Mean Corpuscular Volume 93fL (79-100) Mean Corpuscular Hemoglobin 31pg (25-35) Mean Corpuscular Hemoglobin Concent 33g/dL (31-37) Red Cell Distribution Width 13.3% (11.5-14.5) Platelet Count 294x10^3/uL (140-400) Neutrophils (%) (Auto) 83% (31-73) Lymphocytes (%) (Auto) 12% (24-48) Monocytes (%) (Auto) 6% (0-9) Eosinophils (%) (Auto) 0% (0-3) Basophils (%) (Auto) 0% (0-3) Neutrophils # (Auto) 10.6x10^3uL (1.8-7.7) Lymphocytes # (Auto) 1.5x10^3/uL (1.0-4.8) Monocytes # (Auto) 0.7x10^3/uL (0.0-1.1) Eosinophils # (Auto) 0.0x10^3/uL (0.0-0.7) Basophils # (Auto) 0.0x10^3/uL (0.0-0.2) Sodium Level 139mmol/L (136-145) Potassium Level 4.4mmol/L (3.5-5.1) Chloride Level 105mmol/L (98-107) Carbon Dioxide Level 23mmol/L (21-32) Anion Gap 11 (6-14) Blood Urea Nitrogen 26mg/dL (7-20) Creatinine 0.8mg/dL (0.6-1.0) Estimated GFR (Cockcroft-Gault) 68.7 Glucose Level 316mg/dL (70-99) Calcium Level 9.2mg/dL (8.5-10.1) Phosphorus Level 3.3mg/dL (2.6-4.7) Magnesium Level 1.9mg/dL (1.8-2.4) Test 06/21/16 11:46 Glucose (Fingerstick) 265mg/dL (70-99) Microbiology 06/10/16 Blood Culture - Final, Complete NO GROWTH AFTER 5 DAYS 06/11/16 Gram Stain - Final, Complete 06/08/16 Urine Culture - Final, Complete 06/08/16 Urine Culture Result 1 (ALEJO) - Final, Complete Medications Current Medications Lidocaine (Lidoderm) 1 patch 1X ONCE TD Last administered on 06/08/16 09:12; Start 06/08/16 at 09:00; Stop 06/08/16 at 09:01; Status DC Acetaminophen (Tylenol) 1,000 mg 1X ONCE PO Last administered on 06/08/16 09: 12; Start 06/08/16 at 09:00; Stop 06/08/16 at 09:01; Status DC Oxycodone/ Acetaminophen (Percocet 5/325) 1 tab 1X ONCE PO Last administered on 06/08/16 10:00; Start 06/08/16 at 10:00; Stop 06/08/16 at 10:01; Status DC Ondansetron HCl (Zofran) 4 mg PRN Q6HRS PRN IV NAUSEA/VOMITING; Start 06/08/16 at 12:00; Stop 06/12/16 at 09:19; Status DC Al Hydrox/Mg Hydrox/Simethicone (Mylanta Plus Xs) 30 ml PRN Q3HRS PRN PO HEARTBURN / GAS; Start 06/08/16 at 12:00; Stop 06/12/16 at 09:19; Status DC Calcium Carbonate/ Glycine (Tums) 500 mg PRN Q3HRS PRN PO UPSET STOMACH; Start 06/08/16 at 12:00; Stop 06/12/16 at 09:19; Status DC Oxycodone HCl (Roxicodone) 5 mg PRN Q3HRS PRN PO BREAKTHROUGH PAIN; Start at 12:00; Stop 06/12/16 at 09:19; Status DC Morphine Sulfate 1 mg PRN Q2HR PRN IV PAIN; Start 06/08/16 at 12:00; Stop at 09:19; Status DC Oxycodone/ Acetaminophen (Percocet 5/325) 1 tab PRN Q4HRS PRN PO MILD PAIN, 1ST CHOICE Last administered on 06/09/16 15:03; Start 06/08/16 at 12:00; Stop 06/12/16 at 09:19; Status DC Docusate Sodium (Colace) 100 mg BID PO ; Start 06/08/16 at 21:00; Status Cancel Magnesium Hydroxide (Milk Of Magnesia) 2,400 mg PRN Q12HR PRN PO CONSTIPATION; Start 06/08/16 at 12:00; Stop 06/12/16 at 09:19; Status DC Lactulose 20 gm PRN Q12HR PRN PO CONSTIPATION; Start 06/08/16 at 12:00; Stop 06/12/16 at 09:19; Status DC Bisacodyl (Dulcolax Supp) 10 mg PRN DAILY PRN MI CONSTIPATION; Start 06/08/16 at 12:00; Stop 06/12/16 at 09:19; Status DC Enoxaparin Sodium (Lovenox 40mg Syringe) 40 mg DAILY16 SQ Last administered on 06/09/16 15:03; Start 06/08/16 at 16:00; Stop 06/10/16 at 12:52; Status DC Lidocaine (Lidoderm) 1 patch DAILY TD Last administered on 06/09/16 07:41; Start 06/08/16 at 13:00 Aspirin (Children'S Aspirin) 81 mg DAILYWBKFT PO Last administered on 06/09/16 07:41; Start 06/08/16 at 13:00 Docusate Sodium (Colace) 100 mg DAILY PO Last administered on 06/09/16 09:00; Start 06/09/16 at 09:00 Fluticasone Propionate (Flonase) 2 spray DAILY NS Last administered on 09:22; Start 06/08/16 at 13:00 Glipizide (Glucotrol Er) 10 mg DAILY08 PO Last administered on 06/09/16 07:38; Start 06/08/16 at 13:00 Lisinopril (Prinivil) 5 mg DAILY PO Last administered on 06/09/16 07:39; Start 06/08/16 at 13:00 Calcium/Vitamin D (Oscal D 500mg/ 200uts) 1 tab DAILY PO Last administered on 07:39; Start 06/08/16 at 13:00 Fish Oil (Fish Oil) 1,000 mg DAILY PO Last administered on 06/09/16 07:38; Start 06/08/16 at 13:00 Duloxetine HCl (Cymbalta) 60 mg DAILY PO Last administered on 06/09/16 07:40; Start 06/08/16 at 13:00 Famotidine (Pepcid) 40 mg DAILY PO Last administered on 06/09/16 07:40; Start 06/08/16 at 13:00; Stop 06/10/16 at 11:55; Status DC Multivitamins/ Calcium (Thera M Plus) 1 tab DAILY PO Last administered on 07:39; Start 06/08/16 at 13:00 Atorvastatin Calcium (Lipitor) 20 mg QHS PO Last administered on 06/08/16 20:56 ; Start 06/08/16 at 21:00 Insulin Aspart (Novolog) 0-9 UNITS TIDWMEALS SQ Last administered on 06/13/16 17:49; Start 06/08/16 at 12:30; Stop 06/13/16 at 20:54; Status DC Dextrose 12.5 gm PRN Q15MIN PRN IV SEE COMMENTS; Start 06/08/16 at 12:15 Ondansetron HCl 4 mg 4 mg PRN Q8HRS PRN IV NAUSEA/VOMITING; Start 06/08/16 at 12 :45; Stop 06/09/16 at 12:44; Status DC Piperacillin Sod/ Tazobactam Sod/ Sodium Chloride (Zosyn/Iv Sodium Chloride 0.9 % 50ml) 50 ml @ 100 mls/hr Q6HRS IV Last administered on 06/17/16 12:28; Start 06/10/16 at 12:00; Stop 06/17/16 at 13:13; Status DC Pantoprazole Sodium 40 mg 40 mg DAILYAC IVP Last administered on 06/21/16 09: 05; Start 06/10/16 at 11:00 Amino Acids/ Electrolytes/ Dextrose 1,000 ml @ 75 mls/hr [id number] PRN IV . Last administered on 06/14/16 20:34; Start 06/10/16 at 11:00; Stop 06/15/16 at 21:59; Status DC Sodium Chloride (Iv Sodium Chloride 0.9% 1000ml Bag) 1,000 ml @ 50 mls/hr Q20H IV Last administered on 06/20/16 21:56; Start 06/10/16 at 11:00 Naloxone HCl (Narcan) 0.4 mg PRN Q2MIN PRN IV SEE COMMENTS; Start 06/10/16 at 11 :30 Naloxone HCl 0.4 mg 0.4 mg 1X ONCE IV Last administered on 06/10/16 12:07; Start 06/10/16 at 12:00; Stop 06/10/16 at 12:01; Status DC Daptomycin 500 mg/ Sodium Chloride 50 ml @ 100 mls/hr Q24H IV Last administered on 06/10/16 14:56; Start 06/10/16 at 14:00; Stop 06/10/16 at 18:00; Status DC Metronidazole (FLAGYL 500Mmg PREMIX) 100 ml @ 100 mls/hr Q8H IV Last administered on 06/12/16 08:08; Start 06/10/16 at 16:00; Stop 06/12/16 at 09:07; Status DC Lorazepam (Ativan) 1 mg PRN Q4HRS PRN IV ANXIETY / AGITATION Last administered on 06/10/16 17:28; Start 06/10/16 at 17:00; Stop 06/12/16 at 09:19; Status DC Flumazenil 0.1 mg 0.1 mg 1X ONCE IV Last administered on 06/11/16 15:15; Start 06/11/16 at 14:30; Stop 06/11/16 at 14:33; Status DC Acyclovir Sodium/ Dextrose (Zovirax) 262.4 ml @ 262.4 mls/ hr Q8HRS IV Last administered on 06/17/16 05:10; Start 06/13/16 at 09:00; Stop 06/17/16 at 13:13 ; Status DC Alteplase, Recombinant (Cathflo) 2 mg 1X ONCE INT CAT Last administered on 06/13 16:14; Start 06/13/16 at 15:00; Stop 06/13/16 at 15:01; Status DC Insulin Aspart (Novolog) 0-9 UNITS QIDACHS SQ Last administered on 06/21/16 12 :01; Start 06/13/16 at 21:00 Info 1 each 1 each PRN DAILY PRN MC SEE COMMENTS Last administered on 11:45; Start 06/15/16 at 11:00 Sodium Chloride/ Potassium Chloride/ Potassium Phosphate/ Magnesium Sulfate/ Calcium Gluconate/ Multivitamins/ Chromium/Copper/ Manganese/Seleni/ Zn/Total Parenteral Nutrition/Amino Acids/Dextrose/ Fat Emulsion Intravenous (Sodium Chloride/ Potassium Phospha... 1,512 ml @ 63 mls/hr TPN CONT IV Last administered on 06/15/16 21:21; Start 06/15/16 at 22:00; Stop 06/16/16 at 21:59 ; Status DC Saliva Substitute 2 spray 2 spray PRN Q15MIN PRN PO DRY MOUTH; Start 06/16/16 at 11:15 Sodium Chloride/ Potassium Chloride/ Potassium Phosphate/ Magnesium Sulfate/ Calcium Gluconate/ Multivitamins/ Chromium/Copper/ Manganese/Seleni/ Zn/Total Parenteral Nutrition/Amino Acids/Dextrose/ Fat Emulsion Intravenous (Sodium Chloride/ Potassium Phospha... 1,512 ml @ 63 mls/hr TPN CONT IV Last administered on 06/16/16 22:11; Start 06/16/16 at 22:00; Stop 06/17/16 at 21:59 ; Status DC Insulin Detemir (Levemir) 8 units 1X ONCE SQ ; Start 06/16/16 at 15:00; Stop at 15:00; Status DC Insulin Detemir 12 units 12 units 1X ONCE SQ Last administered on 06/16/16 16 :31; Start 06/16/16 at 15:30; Stop 06/16/16 at 15:31; Status DC Sodium Chloride/ Potassium Chloride/ Potassium Phosphate/ Magnesium Sulfate/ Calcium Gluconate/ Multivitamins/ Chromium/Copper/ Manganese/Seleni/ Zn/Total Parenteral Nutrition/Amino Acids/Dextrose/ Fat Emulsion Intravenous (Sodium Chloride/ Potassium Phospha... 1,512 ml @ 63 mls/hr TPN CONT IV Last administered on 06/17/16 22:01; Start 06/17/16 at 22:00; Stop 06/18/16 at 21:59 ; Status DC Methylprednisolone Sodium Succinate 125 mg 125 mg 1X ONCE IV Last administered on 06/18/16 10:53; Start 06/18/16 at 09:45; Stop 06/18/16 at 09:46 ; Status DC Sodium Chloride 90 meq/Potassium Chloride 40 meq/ Potassium Phosphate 13.6 mmol/ Magnesium Sulfate 10 meq/ Calcium Gluconate 5 meq/ Multivitamins 10 ml/Chromium / Copper/Manganese/ Seleni/Zn 1 ml/ Total Parenteral Nutrition/Amino Acids/ Dextrose/ Fat Emulsion Intravenous 1,512 ml @ 63 mls/hr TPN CONT IV Last administered on 06/18/16 21:16; Start 06/18/16 at 22:00; Stop 06/19/16 at 21:59 ; Status DC Sodium Chloride/ Potassium Chloride/ Potassium Phosphate/ Magnesium Sulfate/ Calcium Gluconate/ Multivitamins/ Chromium/Copper/ Manganese/Seleni/ Zn/Total Parenteral Nutrition/Amino Acids/Dextrose/ Fat Emulsion Intravenous (Sodium Chloride/ Potassium Phospha... 1,512 ml @ 63 mls/hr TPN CONT IV Last administered on 06/19/16 20:42; Start 06/19/16 at 22:00; Stop 06/20/16 at 21:59 ; Status DC Methylprednisolone Sodium Succinate (Solu-Medrol 40mg Vial) 40 mg Q8HRS IV Last administered on 06/21/16 05:38; Start 06/19/16 at 14:00 Barium Sulfate 148 gm 148 gm 1X ONCE PO Last administered on 06/19/16 11:30; Start 06/19/16 at 11:30; Stop 06/19/16 at 11:32; Status DC Sodium Chloride/ Potassium Phosphate/ Magnesium Sulfate/ Calcium Gluconate/ Multivitamins/ Chromium/Copper/ Manganese/Seleni/ Zn/Total Parenteral Nutrition/ Amino Acids/Dextrose/ Fat Emulsion Intravenous (Sodium Chloride/ Potassium Phosphate/ Infuvite Adult/ Multitrace-5 Co... 1,512 ml @ 63 mls/hr TPN CONT IV Last administered on 06/20/16 21:57; Start 06/20/16 at 22:00; Stop at 21:59 Insulin Detemir (Levemir) 12 units QHS SQ Last administered on 06/20/16 22:01 ; Start 06/20/16 at 21:00 Active Scripts Active Ciprofloxacin 250 Mg/5 Ml Christina.mc.rec 250 Mg PO BID Children's Aspirin (Aspirin) 81 Mg Tab.chew 81 Mg PO DAILYWBKFT 30 Days Glipizide Er (Glipizide) 5 Mg Tab.er.24 10 Mg PO DAILY Reported Pravachol (Pravastatin Sodium) 80 Mg Tablet 80 Mg PO DAILY Multi-Vitamin Daily (Multivitamin) 1 Each Tablet 1 Each PO DAILY Lisinopril 5 Mg Tablet 5 Mg PO DAILY Flonase (Fluticasone Propionate) 16 Gm Accident.susp 2 Accident NS DAILY Famotidine 40 Mg Tablet 40 Mg PO DAILY Cymbalta (Duloxetine Hcl) 60 Mg Capsule.dr 60 Mg PO DAILY Docusate Sodium 100 Mg Capsule 100 Mg PO DAILY Fish Oil Concentrate Softgel (Docosahexanoic Acid/Epa) 1 Each Capsule 1 Each PO DAILY Caltrate 600 + D Tablet (Calcium Carbonate/Vitamin D3) 1 Each Tablet 1 Each PO DAILY Vitals/I & O Vital Sign - Last 24 Hours 06/20/16 06/20/16 06/20/16 06/20/16 15:00 19:15 20:00 23:20 Temp 98.0 98.1 98.5 98.0 98.1 98.5 Pulse 64 54 56 Resp 18 20 18 B/P 152/53 135/51 139/54 Pulse Ox 99 95 96 O2 Delivery Room Air Room Air Room Air Room Air 06/21/16 06/21/16 06/21/16 06/21/16 03:31 07:00 08:00 09:00 Temp 98.4 98.2 98.4 98.2 Pulse 67 57 55 Resp 18 18 B/P 134/47 134/55 134/55 Pulse Ox 95 95 O2 Delivery Room Air Room Air Room Air 06/21/16 11:00 Temp 98.0 98.0 Pulse 60 Resp 18 B/P 130/69 Pulse Ox 96 O2 Delivery Room Air Intake and Output 06/20/16 06/20/16 06/21/16 15:00 23:00 07:00 Intake Total 0 ml Balance 0 ml Problem List Problems Medical Problems: (1) Fall Status: Acute (2) Fall (on) (from) other stairs and steps, initial encounter Status: Acute (3) Ribs, multiple fractures Status: Acute Assessment AMS, improved, but still not fully cleared. Probable ischemic "colitis", stable w/o evidence for any bleeding. Plan of Care: Continue current Tx, Mgmt Plan of Care Note Will stand by. JOSÉ LEON MD Jun 21, 2016 13:31
[2016-06-21] MEDS: TPN PER PHARMACY MC PRN ×2 (13:44→14:04)
--- NOTE | 2016-06-21 14:49 | PDOC ---
PROGRESS NOTES Chief Complaint Chief Complaint acute metabolic encephalopathy s/p fall w/ rib fx ASSESSMENT AND PLAN: 1. R rib fxs # [id number] with smll PTX: 2/ fall. treat symptomatically. 2. Acute encephalopathy: resolved. unclear etiology. unlikely infectious with LP results from 06/11; neg MRI. appreciate Neuro and ID services' input. minimize sedating meds. MS fluctuating, c/w delirium 3. Dysphagia: failed swallow eval 2 days in a row. remains NPO for now. ST ongoing. TPN started. d/w speech path: unlikely to clear up quickly. will keep over weekend, but pt may need PEG 4. Leukocytosis: fluctuating around upper normal limit with absolute neutrophilia. ESR elevated, ? inflammation (vs infection). recheck in AM 5. Colitis: suspect ischemic with hematochezia, neg C. diff. essentially resolved 6. ANT: POA, susp vasomotor etiology. now resolved 7. Hyperkalemia: POA. much improved, now stable at upper normal limit 8. DM: poorly controlled on ISS only. oral glipizide currently on hold 2/ NPO. titrate levemir to 20 9. HTN: slowly improving. oral meds on hold for now 10. GERD: PPI 11. 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 Vitals Vitals Vital Signs Date Time Temp Pulse Resp B/P Pulse Ox O2 Delivery O2 Flow Rate FiO2 06/21/16 11:00 98.0 60 18 130/69 96 Room Air 98.0 Physical Exam Physical Exam mildly confused, General: Alert, Cooperative, No acute distress Heart: Regular rate, Normal S1, Normal S2, No murmurs Lungs: Clear Abdomen: Normal bowel sounds, Soft, No tenderness, No masses Extremities: No cyanosis, No edema Skin: No breakdown, No significant lesion Labs LABS Laboratory Tests Test 06/20/16 16:13 06/20/16 21:26 06/21/16 06:00 06/21/16 07:58 Glucose (Fingerstick) 283mg/dL (70-99) 279mg/dL (70-99) 288mg/dL (70-99) White Blood Count 12.8x10^3/uL (4.0-11.0) Red Blood Count 3.77x10^6/uL (3.50-5.40) Hemoglobin 11.5g/dL (12.0-15.5) Hematocrit 34.9% (36.0-47.0) Mean Corpuscular Volume 93fL (79-100) Mean Corpuscular Hemoglobin 31pg (25-35) Mean Corpuscular Hemoglobin Concent 33g/dL (31-37) Red Cell Distribution Width 13.3% (11.5-14.5) Platelet Count 294x10^3/uL (140-400) Neutrophils (%) (Auto) 83% (31-73) Lymphocytes (%) (Auto) 12% (24-48) Monocytes (%) (Auto) 6% (0-9) Eosinophils (%) (Auto) 0% (0-3) Basophils (%) (Auto) 0% (0-3) Neutrophils # (Auto) 10.6x10^3uL (1.8-7.7) Lymphocytes # (Auto) 1.5x10^3/uL (1.0-4.8) Monocytes # (Auto) 0.7x10^3/uL (0.0-1.1) Eosinophils # (Auto) 0.0x10^3/uL (0.0-0.7) Basophils # (Auto) 0.0x10^3/uL (0.0-0.2) Sodium Level 139mmol/L (136-145) Potassium Level 4.4mmol/L (3.5-5.1) Chloride Level 105mmol/L (98-107) Carbon Dioxide Level 23mmol/L (21-32) Anion Gap 11 (6-14) Blood Urea Nitrogen 26mg/dL (7-20) Creatinine 0.8mg/dL (0.6-1.0) Estimated GFR (Cockcroft-Gault) 68.7 Glucose Level 316mg/dL (70-99) Calcium Level 9.2mg/dL (8.5-10.1) Phosphorus Level 3.3mg/dL (2.6-4.7) Magnesium Level 1.9mg/dL (1.8-2.4) Test 06/21/16 11:46 Glucose (Fingerstick) 265mg/dL (70-99) Review of Systems Review of Systems feels well, able to walk with PT. asking about food EDDIE CHAVEZ MD Jun 21, 2016 14:49
[2016-06-21] MEDS: IV NORMAL SALINE 1000ML BAG 1,000 ML IV SCH (14:58)
[2016-06-21 15:00] VITALS: BP 143/86
[2016-06-21 19:00] VITALS: BP 152/64
[2016-06-21] MEDS: ATORVASTATIN CALCIUM 20 MG TABLET PO SCH (21:00)
[2016-06-21] MEDS: INSULIN DETEMIR 300 UNITS/3 ML INSULN.PEN. SQ SCH (21:23)
[2016-06-21] MEDS ORDERED: [UNRECOGNIZED DRUG - OTHER] IV SCH ×10 (22:00)
[2016-06-21] MEDS ORDERED: TOTAL PARENTERAL NUTRITION IV SCH ×10 (22:00)
[2016-06-21] MEDS ORDERED: AMINO ACIDS IV SCH ×10 (22:00)
[2016-06-21] MEDS ORDERED: DEXTROSE 70% IV SCH ×10 (22:00)
[2016-06-21 23:33] VITALS: BP 151/61
[2016-06-22 03:21] VITALS: BP 152/53
[2016-06-22] MEDS: methylPREDNISolone SOD SUCC PF 40 MG/ML VIAL. IV SCH ×2 (06:02→20:18)
[2016-06-22] MEDS: PANTOPRAZOLE IV PUSH 40 MG VIAL. IVP SCH ×2 (06:05→08:03)
[2016-06-22] MEDS: GLIPIZIDE ER 5 MG TAB.ER.24 PO SCH (06:54)
[2016-06-22] MEDS: ASPIRIN 81 MG TAB.CHEW PO SCH (06:54)
[2016-06-22] MEDS: DOCUSATE SODIUM 100 MG CAPSULE PO SCH (06:54)
[2016-06-22] MEDS: DULOXETINE HCL 30 MG CAPSULE.DR. PO SCH (06:54)
[2016-06-22] MEDS: OMEGA-3 FATTY ACIDS/FISH OIL 1,000 MG CAPSULE. PO SCH (06:54)
[2016-06-22] MEDS: MULTIVITAMIN with MINERAL TABLET. PO SCH (06:55)
[2016-06-22] MEDS: LIDOCAINE (700MG/PATCH) PATCH. TD SCH (06:55)
[2016-06-22] MEDS: CALCIUM CARB/VIT D3 500/200 TABLET PO SCH (06:55)
[2016-06-22 07:00] VITALS: BP 163/69
[2016-06-22] MEDS: INSULIN ASPART 300 UNITS/3 ML INSULN.PEN SQ SCH ×4 (08:08→20:27)
[2016-06-22] MEDS: LISINOPRIL 5 MG TABLET. PO SCH (08:09)
[2016-06-22] MEDS: FLUTICASONE 50MCG/NASAL SPRAY 16GM BOTTLE. NS SCH (09:00)
--- NOTE | 2016-06-22 09:33 | PDOC ---
G I PROGRESS NOTE Subjective Apparently asleep. Did not awaken with exam. Physical Exam Lungs clear. RRR Abdomen soft, apparently non-tender. Review of Relevant I have reviewed the following items quincy (where applicable) has been applied. Labs Laboratory Tests Test 06/20/16 11:21 06/20/16 16:13 06/20/16 21:26 06/21/16 06:00 Glucose (Fingerstick) 315mg/dL (70-99) 283mg/dL (70-99) 279mg/dL (70-99) White Blood Count 12.8x10^3/uL (4.0-11.0) Red Blood Count 3.77x10^6/uL (3.50-5.40) Hemoglobin 11.5g/dL (12.0-15.5) Hematocrit 34.9% (36.0-47.0) Mean Corpuscular Volume 93fL (79-100) Mean Corpuscular Hemoglobin 31pg (25-35) Mean Corpuscular Hemoglobin Concent 33g/dL (31-37) Red Cell Distribution Width 13.3% (11.5-14.5) Platelet Count 294x10^3/uL (140-400) Neutrophils (%) (Auto) 83% (31-73) Lymphocytes (%) (Auto) 12% (24-48) Monocytes (%) (Auto) 6% (0-9) Eosinophils (%) (Auto) 0% (0-3) Basophils (%) (Auto) 0% (0-3) Neutrophils # (Auto) 10.6x10^3uL (1.8-7.7) Lymphocytes # (Auto) 1.5x10^3/uL (1.0-4.8) Monocytes # (Auto) 0.7x10^3/uL (0.0-1.1) Eosinophils # (Auto) 0.0x10^3/uL (0.0-0.7) Basophils # (Auto) 0.0x10^3/uL (0.0-0.2) Sodium Level 139mmol/L (136-145) Potassium Level 4.4mmol/L (3.5-5.1) Chloride Level 105mmol/L (98-107) Carbon Dioxide Level 23mmol/L (21-32) Anion Gap 11 (6-14) Blood Urea Nitrogen 26mg/dL (7-20) Creatinine 0.8mg/dL (0.6-1.0) Estimated GFR (Cockcroft-Gault) 68.7 Glucose Level 316mg/dL (70-99) Calcium Level 9.2mg/dL (8.5-10.1) Phosphorus Level 3.3mg/dL (2.6-4.7) Magnesium Level 1.9mg/dL (1.8-2.4) Test 06/21/16 07:58 06/21/16 11:46 06/21/16 16:32 06/21/16 21:03 Glucose (Fingerstick) 288mg/dL (70-99) 265mg/dL (70-99) 296mg/dL (70-99) 276mg/dL (70-99) Test 06/22/16 07:47 Glucose (Fingerstick) 273mg/dL (70-99) Laboratory Tests Test 06/21/16 11:46 06/21/16 16:32 06/21/16 21:03 06/22/16 07:47 Glucose (Fingerstick) 265mg/dL (70-99) 296mg/dL (70-99) 276mg/dL (70-99) 273mg/dL (70-99) Microbiology 06/10/16 Blood Culture - Final, Complete NO GROWTH AFTER 5 DAYS 06/11/16 Gram Stain - Final, Complete 06/08/16 Urine Culture - Final, Complete 06/08/16 Urine Culture Result 1 (ALEJO) - Final, Complete Medications Current Medications Lidocaine (Lidoderm) 1 patch 1X ONCE TD Last administered on 06/08/16 09:12; Start 06/08/16 at 09:00; Stop 06/08/16 at 09:01; Status DC Acetaminophen (Tylenol) 1,000 mg 1X ONCE PO Last administered on 06/08/16 09: 12; Start 06/08/16 at 09:00; Stop 06/08/16 at 09:01; Status DC Oxycodone/ Acetaminophen (Percocet 5/325) 1 tab 1X ONCE PO Last administered on 06/08/16 10:00; Start 06/08/16 at 10:00; Stop 06/08/16 at 10:01; Status DC Ondansetron HCl (Zofran) 4 mg PRN Q6HRS PRN IV NAUSEA/VOMITING; Start 06/08/16 at 12:00; Stop 06/12/16 at 09:19; Status DC Al Hydrox/Mg Hydrox/Simethicone (Mylanta Plus Xs) 30 ml PRN Q3HRS PRN PO HEARTBURN / GAS; Start 06/08/16 at 12:00; Stop 06/12/16 at 09:19; Status DC Calcium Carbonate/ Glycine (Tums) 500 mg PRN Q3HRS PRN PO UPSET STOMACH; Start 06/08/16 at 12:00; Stop 06/12/16 at 09:19; Status DC Oxycodone HCl (Roxicodone) 5 mg PRN Q3HRS PRN PO BREAKTHROUGH PAIN; Start at 12:00; Stop 06/12/16 at 09:19; Status DC Morphine Sulfate 1 mg PRN Q2HR PRN IV PAIN; Start 06/08/16 at 12:00; Stop at 09:19; Status DC Oxycodone/ Acetaminophen (Percocet 5/325) 1 tab PRN Q4HRS PRN PO MILD PAIN, 1ST CHOICE Last administered on 06/09/16 15:03; Start 06/08/16 at 12:00; Stop 06/12/16 at 09:19; Status DC Docusate Sodium (Colace) 100 mg BID PO ; Start 06/08/16 at 21:00; Status Cancel Magnesium Hydroxide (Milk Of Magnesia) 2,400 mg PRN Q12HR PRN PO CONSTIPATION; Start 06/08/16 at 12:00; Stop 06/12/16 at 09:19; Status DC Lactulose 20 gm PRN Q12HR PRN PO CONSTIPATION; Start 06/08/16 at 12:00; Stop 06/12/16 at 09:19; Status DC Bisacodyl (Dulcolax Supp) 10 mg PRN DAILY PRN MS CONSTIPATION; Start 06/08/16 at 12:00; Stop 06/12/16 at 09:19; Status DC Enoxaparin Sodium (Lovenox 40mg Syringe) 40 mg DAILY16 SQ Last administered on 06/09/16 15:03; Start 06/08/16 at 16:00; Stop 06/10/16 at 12:52; Status DC Lidocaine (Lidoderm) 1 patch DAILY TD Last administered on 06/09/16 07:41; Start 06/08/16 at 13:00 Aspirin (Children'S Aspirin) 81 mg DAILYWBKFT PO Last administered on 06/09/16 07:41; Start 06/08/16 at 13:00 Docusate Sodium (Colace) 100 mg DAILY PO Last administered on 06/09/16 09:00; Start 06/09/16 at 09:00 Fluticasone Propionate (Flonase) 2 spray DAILY NS Last administered on 09:22; Start 06/08/16 at 13:00 Glipizide (Glucotrol Er) 10 mg DAILY08 PO Last administered on 06/09/16 07:38; Start 06/08/16 at 13:00 Lisinopril (Prinivil) 5 mg DAILY PO Last administered on 06/09/16 07:39; Start 06/08/16 at 13:00 Calcium/Vitamin D (Oscal D 500mg/ 200uts) 1 tab DAILY PO Last administered on 07:39; Start 06/08/16 at 13:00 Fish Oil (Fish Oil) 1,000 mg DAILY PO Last administered on 06/09/16 07:38; Start 06/08/16 at 13:00 Duloxetine HCl (Cymbalta) 60 mg DAILY PO Last administered on 06/09/16 07:40; Start 06/08/16 at 13:00 Famotidine (Pepcid) 40 mg DAILY PO Last administered on 06/09/16 07:40; Start 06/08/16 at 13:00; Stop 06/10/16 at 11:55; Status DC Multivitamins/ Calcium (Thera M Plus) 1 tab DAILY PO Last administered on 07:39; Start 06/08/16 at 13:00 Atorvastatin Calcium (Lipitor) 20 mg QHS PO Last administered on 06/08/16 20:56 ; Start 06/08/16 at 21:00 Insulin Aspart (Novolog) 0-9 UNITS TIDWMEALS SQ Last administered on 06/13/16 17:49; Start 06/08/16 at 12:30; Stop 06/13/16 at 20:54; Status DC Dextrose 12.5 gm PRN Q15MIN PRN IV SEE COMMENTS; Start 06/08/16 at 12:15 Ondansetron HCl 4 mg 4 mg PRN Q8HRS PRN IV NAUSEA/VOMITING; Start 06/08/16 at 12 :45; Stop 06/09/16 at 12:44; Status DC Piperacillin Sod/ Tazobactam Sod/ Sodium Chloride (Zosyn/Iv Sodium Chloride 0.9 % 50ml) 50 ml @ 100 mls/hr Q6HRS IV Last administered on 06/17/16 12:28; Start 06/10/16 at 12:00; Stop 06/17/16 at 13:13; Status DC Pantoprazole Sodium 40 mg 40 mg DAILYAC IVP Last administered on 06/22/16 08: 03; Start 06/10/16 at 11:00 Amino Acids/ Electrolytes/ Dextrose 1,000 ml @ 75 mls/hr [id number] PRN IV . Last administered on 06/14/16 20:34; Start 06/10/16 at 11:00; Stop 06/15/16 at 21:59; Status DC Sodium Chloride (Iv Sodium Chloride 0.9% 1000ml Bag) 1,000 ml @ 50 mls/hr Q20H IV Last administered on 06/21/16 14:58; Start 06/10/16 at 11:00 Naloxone HCl (Narcan) 0.4 mg PRN Q2MIN PRN IV SEE COMMENTS; Start 06/10/16 at 11 :30 Naloxone HCl 0.4 mg 0.4 mg 1X ONCE IV Last administered on 06/10/16 12:07; Start 06/10/16 at 12:00; Stop 06/10/16 at 12:01; Status DC Daptomycin 500 mg/ Sodium Chloride 50 ml @ 100 mls/hr Q24H IV Last administered on 06/10/16 14:56; Start 06/10/16 at 14:00; Stop 06/10/16 at 18:00; Status DC Metronidazole (FLAGYL 500Mmg PREMIX) 100 ml @ 100 mls/hr Q8H IV Last administered on 06/12/16 08:08; Start 06/10/16 at 16:00; Stop 06/12/16 at 09:07; Status DC Lorazepam (Ativan) 1 mg PRN Q4HRS PRN IV ANXIETY / AGITATION Last administered on 06/10/16 17:28; Start 06/10/16 at 17:00; Stop 06/12/16 at 09:19; Status DC Flumazenil 0.1 mg 0.1 mg 1X ONCE IV Last administered on 06/11/16 15:15; Start 06/11/16 at 14:30; Stop 06/11/16 at 14:33; Status DC Acyclovir Sodium/ Dextrose (Zovirax) 262.4 ml @ 262.4 mls/ hr Q8HRS IV Last administered on 06/17/16 05:10; Start 06/13/16 at 09:00; Stop 06/17/16 at 13:13 ; Status DC Alteplase, Recombinant (Cathflo) 2 mg 1X ONCE INT CAT Last administered on 06/13 16:14; Start 06/13/16 at 15:00; Stop 06/13/16 at 15:01; Status DC Insulin Aspart (Novolog) 0-9 UNITS QIDACHS SQ Last administered on 06/22/16 08 :08; Start 06/13/16 at 21:00 Info 1 each 1 each PRN DAILY PRN MC SEE COMMENTS Last administered on 14:04; Start 06/15/16 at 11:00 Sodium Chloride/ Potassium Chloride/ Potassium Phosphate/ Magnesium Sulfate/ Calcium Gluconate/ Multivitamins/ Chromium/Copper/ Manganese/Seleni/ Zn/Total Parenteral Nutrition/Amino Acids/Dextrose/ Fat Emulsion Intravenous (Sodium Chloride/ Potassium Phospha... 1,512 ml @ 63 mls/hr TPN CONT IV Last administered on 06/15/16 21:21; Start 06/15/16 at 22:00; Stop 06/16/16 at 21:59 ; Status DC Saliva Substitute 2 spray 2 spray PRN Q15MIN PRN PO DRY MOUTH; Start 06/16/16 at 11:15 Sodium Chloride/ Potassium Chloride/ Potassium Phosphate/ Magnesium Sulfate/ Calcium Gluconate/ Multivitamins/ Chromium/Copper/ Manganese/Seleni/ Zn/Total Parenteral Nutrition/Amino Acids/Dextrose/ Fat Emulsion Intravenous (Sodium Chloride/ Potassium Phospha... 1,512 ml @ 63 mls/hr TPN CONT IV Last administered on 06/16/16 22:11; Start 06/16/16 at 22:00; Stop 06/17/16 at 21:59 ; Status DC Insulin Detemir (Levemir) 8 units 1X ONCE SQ ; Start 06/16/16 at 15:00; Stop at 15:00; Status DC Insulin Detemir 12 units 12 units 1X ONCE SQ Last administered on 06/16/16 16 :31; Start 06/16/16 at 15:30; Stop 06/16/16 at 15:31; Status DC Sodium Chloride/ Potassium Chloride/ Potassium Phosphate/ Magnesium Sulfate/ Calcium Gluconate/ Multivitamins/ Chromium/Copper/ Manganese/Seleni/ Zn/Total Parenteral Nutrition/Amino Acids/Dextrose/ Fat Emulsion Intravenous (Sodium Chloride/ Potassium Phospha... 1,512 ml @ 63 mls/hr TPN CONT IV Last administered on 06/17/16 22:01; Start 06/17/16 at 22:00; Stop 06/18/16 at 21:59 ; Status DC Methylprednisolone Sodium Succinate 125 mg 125 mg 1X ONCE IV Last administered on 06/18/16 10:53; Start 06/18/16 at 09:45; Stop 06/18/16 at 09:46 ; Status DC Sodium Chloride 90 meq/Potassium Chloride 40 meq/ Potassium Phosphate 13.6 mmol/ Magnesium Sulfate 10 meq/ Calcium Gluconate 5 meq/ Multivitamins 10 ml/Chromium / Copper/Manganese/ Seleni/Zn 1 ml/ Total Parenteral Nutrition/Amino Acids/ Dextrose/ Fat Emulsion Intravenous 1,512 ml @ 63 mls/hr TPN CONT IV Last administered on 06/18/16 21:16; Start 06/18/16 at 22:00; Stop 06/19/16 at 21:59 ; Status DC Sodium Chloride/ Potassium Chloride/ Potassium Phosphate/ Magnesium Sulfate/ Calcium Gluconate/ Multivitamins/ Chromium/Copper/ Manganese/Seleni/ Zn/Total Parenteral Nutrition/Amino Acids/Dextrose/ Fat Emulsion Intravenous (Sodium Chloride/ Potassium Phospha... 1,512 ml @ 63 mls/hr TPN CONT IV Last administered on 06/19/16 20:42; Start 06/19/16 at 22:00; Stop 06/20/16 at 21:59 ; Status DC Methylprednisolone Sodium Succinate (Solu-Medrol 40mg Vial) 40 mg Q8HRS IV Last administered on 06/22/16 06:02; Start 06/19/16 at 14:00 Barium Sulfate 148 gm 148 gm 1X ONCE PO Last administered on 06/19/16 11:30; Start 06/19/16 at 11:30; Stop 06/19/16 at 11:32; Status DC Sodium Chloride/ Potassium Phosphate/ Magnesium Sulfate/ Calcium Gluconate/ Multivitamins/ Chromium/Copper/ Manganese/Seleni/ Zn/Total Parenteral Nutrition/ Amino Acids/Dextrose/ Fat Emulsion Intravenous (Sodium Chloride/ Potassium Phosphate/ Infuvite Adult/ Multitrace-5 Co... 1,512 ml @ 63 mls/hr TPN CONT IV Last administered on 06/20/16 21:57; Start 06/20/16 at 22:00; Stop at 21:59; Status DC Insulin Detemir 12 units 12 units QHS SQ Last administered on 06/20/16 22:01; Start 06/20/16 at 21:00; Stop 06/21/16 at 20:10; Status DC Sodium Chloride/ Potassium Phosphate/ Magnesium Sulfate/ Calcium Gluconate/ Multivitamins/ Chromium/Copper/ Manganese/Seleni/ Zn/Insulin Human Regular/ Total Parenteral Nutrition/Amino Acids/Dextrose/ Fat Emulsion Intravenous ( Sodium Chloride/ Potassium Phosphate/ Infuvite Sam... 1,512 ml @ 63 mls/hr TPN CONT IV Last administered on 06/21/16 21:22; Start 06/21/16 at 22:00; Stop 06/22/16 at 21:59 Insulin Detemir (Levemir) 20 units QHS SQ Last administered on 06/21/16 21:23 ; Start 06/21/16 at 21:00 Active Scripts Active Ciprofloxacin 250 Mg/5 Ml Christina.mc.rec 250 Mg PO BID Children's Aspirin (Aspirin) 81 Mg Tab.chew 81 Mg PO DAILYWBKFT 30 Days Glipizide Er (Glipizide) 5 Mg Tab.er.24 10 Mg PO DAILY Reported Pravachol (Pravastatin Sodium) 80 Mg Tablet 80 Mg PO DAILY Multi-Vitamin Daily (Multivitamin) 1 Each Tablet 1 Each PO DAILY Lisinopril 5 Mg Tablet 5 Mg PO DAILY Flonase (Fluticasone Propionate) 16 Gm [place].susp 2 [place] NS DAILY Famotidine 40 Mg Tablet 40 Mg PO DAILY Cymbalta (Duloxetine Hcl) 60 Mg Capsule. 60 Mg PO DAILY Docusate Sodium 100 Mg Capsule 100 Mg PO DAILY Fish Oil Concentrate Softgel (Docosahexanoic Acid/Epa) 1 Each Capsule 1 Each PO DAILY Caltrate 600 + D Tablet (Calcium Carbonate/Vitamin D3) 1 Each Tablet 1 Each PO DAILY Vitals/I & O Vital Sign - Last 24 Hours 06/21/16 06/21/16 06/21/16 06/21/16 11:00 15:00 19:00 20:00 Temp 98.0 98.2 98.6 98.0 98.2 98.6 Pulse 60 66 60 Resp 18 20 20 B/P 130/69 143/86 152/64 Pulse Ox 96 97 95 O2 Delivery Room Air Room Air Room Air Room Air 06/21/16 06/22/16 06/22/16 06/22/16 23:33 03:21 07:00 08:09 Temp 98.0 98.2 98.2 98.0 98.2 98.2 Pulse 51 54 56 56 Resp 16 16 20 B/P 151/61 152/53 163/69 163/69 Pulse Ox 96 96 97 O2 Delivery Room Air Room Air Room Air Intake and Output 06/21/16 06/21/16 06/22/16 15:00 23:00 07:00 Intake Total 1000 ml 0 ml Balance 1000 ml 0 ml Problem List Problems Medical Problems: (1) Fall Status: Acute (2) Fall (on) (from) other stairs and steps, initial encounter Status: Acute (3) Ribs, multiple fractures Status: Acute Assessment Mental status problems persist. Seems stable GI-chaney. Plan of Care: Continue current Tx, Mgmt Plan of Care Note I'm off the weekend. Dr. Prado available if needed. JOSÉ LEON MD Jun 22, 2016 09:33
--- NOTE | 2016-06-22 09:53 | PDOC ---
PROGRESS NOTES Assessment Problems Medical Problems: (1) Fall Status: Acute (2) Fall (on) (from) other stairs and steps, initial encounter Status: Acute (3) Ribs, multiple fractures Status: Acute Metabolic encephalopathy. No sign of HSV encephalitis Dysphagia Plan Agree with delaying PEG over weekend, see if swallowing improves Hold on repeat MRI, negative on 06/10 Subjective No complaints Objective Vital Signs Date Time Temp Pulse Resp B/P Pulse Ox O2 Delivery O2 Flow Rate FiO2 06/22/16 08:09 56 163/69 06/22/16 07:00 98.2 20 97 Room Air 98.2 Intake and Output 06/22/16 07:00 Intake Total 1000 ml Balance 1000 ml Intake Oral 0 ml IV Total 1000 ml # Voids 5 PHYSICAL EXAM Alert. Knows location, person, date PERRL. EOMI. CN: no focal findings. Muscle tone: normal. Muscle strength: 4/5 DTR: 1+ Plantar reflex: flexor Gait: not examined in bed. Sensory exam: no abnormal findings. No cerebellar signs elicited. Review of Relevant I have reviewed the following items quincy (where applicable) has been applied. Labs Laboratory Tests Test 06/20/16 11:21 06/20/16 16:13 06/20/16 21:26 06/21/16 06:00 Glucose (Fingerstick) 315mg/dL (70-99) 283mg/dL (70-99) 279mg/dL (70-99) White Blood Count 12.8x10^3/uL (4.0-11.0) Red Blood Count 3.77x10^6/uL (3.50-5.40) Hemoglobin 11.5g/dL (12.0-15.5) Hematocrit 34.9% (36.0-47.0) Mean Corpuscular Volume 93fL (79-100) Mean Corpuscular Hemoglobin 31pg (25-35) Mean Corpuscular Hemoglobin Concent 33g/dL (31-37) Red Cell Distribution Width 13.3% (11.5-14.5) Platelet Count 294x10^3/uL (140-400) Neutrophils (%) (Auto) 83% (31-73) Lymphocytes (%) (Auto) 12% (24-48) Monocytes (%) (Auto) 6% (0-9) Eosinophils (%) (Auto) 0% (0-3) Basophils (%) (Auto) 0% (0-3) Neutrophils # (Auto) 10.6x10^3uL (1.8-7.7) Lymphocytes # (Auto) 1.5x10^3/uL (1.0-4.8) Monocytes # (Auto) 0.7x10^3/uL (0.0-1.1) Eosinophils # (Auto) 0.0x10^3/uL (0.0-0.7) Basophils # (Auto) 0.0x10^3/uL (0.0-0.2) Sodium Level 139mmol/L (136-145) Potassium Level 4.4mmol/L (3.5-5.1) Chloride Level 105mmol/L (98-107) Carbon Dioxide Level 23mmol/L (21-32) Anion Gap 11 (6-14) Blood Urea Nitrogen 26mg/dL (7-20) Creatinine 0.8mg/dL (0.6-1.0) Estimated GFR (Cockcroft-Gault) 68.7 Glucose Level 316mg/dL (70-99) Calcium Level 9.2mg/dL (8.5-10.1) Phosphorus Level 3.3mg/dL (2.6-4.7) Magnesium Level 1.9mg/dL (1.8-2.4) Test 06/21/16 07:58 06/21/16 11:46 06/21/16 16:32 06/21/16 21:03 Glucose (Fingerstick) 288mg/dL (70-99) 265mg/dL (70-99) 296mg/dL (70-99) 276mg/dL (70-99) Test 06/22/16 07:47 Glucose (Fingerstick) 273mg/dL (70-99) Laboratory Tests Test 06/21/16 11:46 06/21/16 16:32 06/21/16 21:03 06/22/16 07:47 Glucose (Fingerstick) 265mg/dL (70-99) 296mg/dL (70-99) 276mg/dL (70-99) 273mg/dL (70-99) Microbiology 06/10/16 Blood Culture - Final, Complete NO GROWTH AFTER 5 DAYS 06/11/16 Gram Stain - Final, Complete 3/3/17 Urine Culture - Final, Complete 06/08/16 Urine Culture Result 1 (ALEJO) - Final, Complete Medications Current Medications Lidocaine (Lidoderm) 1 patch 1X ONCE TD Last administered on 06/08/16 09:12; Start 06/08/16 at 09:00; Stop 06/08/16 at 09:01; Status DC Acetaminophen (Tylenol) 1,000 mg 1X ONCE PO Last administered on 06/08/16 09: 12; Start 06/08/16 at 09:00; Stop 06/08/16 at 09:01; Status DC Oxycodone/ Acetaminophen (Percocet 5/325) 1 tab 1X ONCE PO Last administered on 06/08/16 10:00; Start 06/08/16 at 10:00; Stop 06/08/16 at 10:01; Status DC Ondansetron HCl (Zofran) 4 mg PRN Q6HRS PRN IV NAUSEA/VOMITING; Start 06/08/16 at 12:00; Stop 06/12/16 at 09:19; Status DC Al Hydrox/Mg Hydrox/Simethicone (Mylanta Plus Xs) 30 ml PRN Q3HRS PRN PO HEARTBURN / GAS; Start 06/08/16 at 12:00; Stop 06/12/16 at 09:19; Status DC Calcium Carbonate/ Glycine (Tums) 500 mg PRN Q3HRS PRN PO UPSET STOMACH; Start 06/08/16 at 12:00; Stop 06/12/16 at 09:19; Status DC Oxycodone HCl (Roxicodone) 5 mg PRN Q3HRS PRN PO BREAKTHROUGH PAIN; Start at 12:00; Stop 06/12/16 at 09:19; Status DC Morphine Sulfate 1 mg PRN Q2HR PRN IV PAIN; Start 06/08/16 at 12:00; Stop at 09:19; Status DC Oxycodone/ Acetaminophen (Percocet 5/325) 1 tab PRN Q4HRS PRN PO MILD PAIN, 1ST CHOICE Last administered on 06/09/16 15:03; Start 06/08/16 at 12:00; Stop 06/12/16 at 09:19; Status DC Docusate Sodium (Colace) 100 mg BID PO ; Start 06/08/16 at 21:00; Status Cancel Magnesium Hydroxide (Milk Of Magnesia) 2,400 mg PRN Q12HR PRN PO CONSTIPATION; Start 06/08/16 at 12:00; Stop 06/12/16 at 09:19; Status DC Lactulose 20 gm PRN Q12HR PRN PO CONSTIPATION; Start 06/08/16 at 12:00; Stop 06/12/16 at 09:19; Status DC Bisacodyl (Dulcolax Supp) 10 mg PRN DAILY PRN VT CONSTIPATION; Start 06/08/16 at 12:00; Stop 06/12/16 at 09:19; Status DC Enoxaparin Sodium (Lovenox 40mg Syringe) 40 mg DAILY16 SQ Last administered on 06/09/16 15:03; Start 06/08/16 at 16:00; Stop 06/10/16 at 12:52; Status DC Lidocaine (Lidoderm) 1 patch DAILY TD Last administered on 06/09/16 07:41; Start 06/08/16 at 13:00 Aspirin (Children'S Aspirin) 81 mg DAILYWBKFT PO Last administered on 06/09/16 07:41; Start 06/08/16 at 13:00 Docusate Sodium (Colace) 100 mg DAILY PO Last administered on 06/09/16 09:00; Start 06/09/16 at 09:00 Fluticasone Propionate (Flonase) 2 spray DAILY NS Last administered on 09:22; Start 06/08/16 at 13:00 Glipizide (Glucotrol Er) 10 mg DAILY08 PO Last administered on 06/09/16 07:38; Start 06/08/16 at 13:00 Lisinopril (Prinivil) 5 mg DAILY PO Last administered on 06/09/16 07:39; Start 06/08/16 at 13:00 Calcium/Vitamin D (Oscal D 500mg/ 200uts) 1 tab DAILY PO Last administered on 07:39; Start 06/08/16 at 13:00 Fish Oil (Fish Oil) 1,000 mg DAILY PO Last administered on 06/09/16 07:38; Start 06/08/16 at 13:00 Duloxetine HCl (Cymbalta) 60 mg DAILY PO Last administered on 06/09/16 07:40; Start 06/08/16 at 13:00 Famotidine (Pepcid) 40 mg DAILY PO Last administered on 06/09/16 07:40; Start 06/08/16 at 13:00; Stop 06/10/16 at 11:55; Status DC Multivitamins/ Calcium (Thera M Plus) 1 tab DAILY PO Last administered on 07:39; Start 06/08/16 at 13:00 Atorvastatin Calcium (Lipitor) 20 mg QHS PO Last administered on 06/08/16 20:56 ; Start 06/08/16 at 21:00 Insulin Aspart (Novolog) 0-9 UNITS TIDWMEALS SQ Last administered on 06/13/16 17:49; Start 06/08/16 at 12:30; Stop 06/13/16 at 20:54; Status DC Dextrose 12.5 gm PRN Q15MIN PRN IV SEE COMMENTS; Start 06/08/16 at 12:15 Ondansetron HCl 4 mg 4 mg PRN Q8HRS PRN IV NAUSEA/VOMITING; Start 06/08/16 at 12 :45; Stop 06/09/16 at 12:44; Status DC Piperacillin Sod/ Tazobactam Sod/ Sodium Chloride (Zosyn/Iv Sodium Chloride 0.9 % 50ml) 50 ml @ 100 mls/hr Q6HRS IV Last administered on 06/17/16 12:28; Start 06/10/16 at 12:00; Stop 06/17/16 at 13:13; Status DC Pantoprazole Sodium 40 mg 40 mg DAILYAC IVP Last administered on 06/22/16 08: 03; Start 06/10/16 at 11:00 Amino Acids/ Electrolytes/ Dextrose 1,000 ml @ 75 mls/hr [id number] PRN IV . Last administered on 06/14/16 20:34; Start 06/10/16 at 11:00; Stop 06/15/16 at 21:59; Status DC Sodium Chloride (Iv Sodium Chloride 0.9% 1000ml Bag) 1,000 ml @ 50 mls/hr Q20H IV Last administered on 06/21/16 14:58; Start 06/10/16 at 11:00 Naloxone HCl (Narcan) 0.4 mg PRN Q2MIN PRN IV SEE COMMENTS; Start 06/10/16 at 11 :30 Naloxone HCl 0.4 mg 0.4 mg 1X ONCE IV Last administered on 06/10/16 12:07; Start 06/10/16 at 12:00; Stop 06/10/16 at 12:01; Status DC Daptomycin 500 mg/ Sodium Chloride 50 ml @ 100 mls/hr Q24H IV Last administered on 06/10/16 14:56; Start 06/10/16 at 14:00; Stop 06/10/16 at 18:00; Status DC Metronidazole (FLAGYL 500Mmg PREMIX) 100 ml @ 100 mls/hr Q8H IV Last administered on 06/12/16 08:08; Start 06/10/16 at 16:00; Stop 06/12/16 at 09:07; Status DC Lorazepam (Ativan) 1 mg PRN Q4HRS PRN IV ANXIETY / AGITATION Last administered on 06/10/16 17:28; Start 06/10/16 at 17:00; Stop 06/12/16 at 09:19; Status DC Flumazenil 0.1 mg 0.1 mg 1X ONCE IV Last administered on 06/11/16 15:15; Start 06/11/16 at 14:30; Stop 06/11/16 at 14:33; Status DC Acyclovir Sodium/ Dextrose (Zovirax) 262.4 ml @ 262.4 mls/ hr Q8HRS IV Last administered on 06/17/16 05:10; Start 06/13/16 at 09:00; Stop 06/17/16 at 13:13 ; Status DC Alteplase, Recombinant (Cathflo) 2 mg 1X ONCE INT CAT Last administered on 06/13 16:14; Start 06/13/16 at 15:00; Stop 06/13/16 at 15:01; Status DC Insulin Aspart (Novolog) 0-9 UNITS QIDACHS SQ Last administered on 06/22/16 08 :08; Start 06/13/16 at 21:00 Info 1 each 1 each PRN DAILY PRN MC SEE COMMENTS Last administered on 14:04; Start 06/15/16 at 11:00 Sodium Chloride/ Potassium Chloride/ Potassium Phosphate/ Magnesium Sulfate/ Calcium Gluconate/ Multivitamins/ Chromium/Copper/ Manganese/Seleni/ Zn/Total Parenteral Nutrition/Amino Acids/Dextrose/ Fat Emulsion Intravenous (Sodium Chloride/ Potassium Phospha... 1,512 ml @ 63 mls/hr TPN CONT IV Last administered on 06/15/16 21:21; Start 06/15/16 at 22:00; Stop 06/16/16 at 21:59 ; Status DC Saliva Substitute 2 spray 2 spray PRN Q15MIN PRN PO DRY MOUTH; Start 06/16/16 at 11:15 Sodium Chloride/ Potassium Chloride/ Potassium Phosphate/ Magnesium Sulfate/ Calcium Gluconate/ Multivitamins/ Chromium/Copper/ Manganese/Seleni/ Zn/Total Parenteral Nutrition/Amino Acids/Dextrose/ Fat Emulsion Intravenous (Sodium Chloride/ Potassium Phospha... 1,512 ml @ 63 mls/hr TPN CONT IV Last administered on 06/16/16 22:11; Start 06/16/16 at 22:00; Stop 06/17/16 at 21:59 ; Status DC Insulin Detemir (Levemir) 8 units 1X ONCE SQ ; Start 06/16/16 at 15:00; Stop at 15:00; Status DC Insulin Detemir 12 units 12 units 1X ONCE SQ Last administered on 06/16/16 16 :31; Start 06/16/16 at 15:30; Stop 06/16/16 at 15:31; Status DC Sodium Chloride/ Potassium Chloride/ Potassium Phosphate/ Magnesium Sulfate/ Calcium Gluconate/ Multivitamins/ Chromium/Copper/ Manganese/Seleni/ Zn/Total Parenteral Nutrition/Amino Acids/Dextrose/ Fat Emulsion Intravenous (Sodium Chloride/ Potassium Phospha... 1,512 ml @ 63 mls/hr TPN CONT IV Last administered on 06/17/16 22:01; Start 06/17/16 at 22:00; Stop 06/18/16 at 21:59 ; Status DC Methylprednisolone Sodium Succinate 125 mg 125 mg 1X ONCE IV Last administered on 06/18/16 10:53; Start 06/18/16 at 09:45; Stop 06/18/16 at 09:46 ; Status DC Sodium Chloride 90 meq/Potassium Chloride 40 meq/ Potassium Phosphate 13.6 mmol/ Magnesium Sulfate 10 meq/ Calcium Gluconate 5 meq/ Multivitamins 10 ml/Chromium / Copper/Manganese/ Seleni/Zn 1 ml/ Total Parenteral Nutrition/Amino Acids/ Dextrose/ Fat Emulsion Intravenous 1,512 ml @ 63 mls/hr TPN CONT IV Last administered on 06/18/16 21:16; Start 06/18/16 at 22:00; Stop 06/19/16 at 21:59 ; Status DC Sodium Chloride/ Potassium Chloride/ Potassium Phosphate/ Magnesium Sulfate/ Calcium Gluconate/ Multivitamins/ Chromium/Copper/ Manganese/Seleni/ Zn/Total Parenteral Nutrition/Amino Acids/Dextrose/ Fat Emulsion Intravenous (Sodium Chloride/ Potassium Phospha... 1,512 ml @ 63 mls/hr TPN CONT IV Last administered on 06/19/16 20:42; Start 06/19/16 at 22:00; Stop 06/20/16 at 21:59 ; Status DC Methylprednisolone Sodium Succinate (Solu-Medrol 40mg Vial) 40 mg Q8HRS IV Last administered on 06/22/16 06:02; Start 06/19/16 at 14:00 Barium Sulfate 148 gm 148 gm 1X ONCE PO Last administered on 06/19/16 11:30; Start 06/19/16 at 11:30; Stop 06/19/16 at 11:32; Status DC Sodium Chloride/ Potassium Phosphate/ Magnesium Sulfate/ Calcium Gluconate/ Multivitamins/ Chromium/Copper/ Manganese/Seleni/ Zn/Total Parenteral Nutrition/ Amino Acids/Dextrose/ Fat Emulsion Intravenous (Sodium Chloride/ Potassium Phosphate/ Infuvite Adult/ Multitrace-5 Co... 1,512 ml @ 63 mls/hr TPN CONT IV Last administered on 06/20/16 21:57; Start 06/20/16 at 22:00; Stop at 21:59; Status DC Insulin Detemir 12 units 12 units QHS SQ Last administered on 06/20/16 22:01; Start 06/20/16 at 21:00; Stop 06/21/16 at 20:10; Status DC Sodium Chloride/ Potassium Phosphate/ Magnesium Sulfate/ Calcium Gluconate/ Multivitamins/ Chromium/Copper/ Manganese/Seleni/ Zn/Insulin Human Regular/ Total Parenteral Nutrition/Amino Acids/Dextrose/ Fat Emulsion Intravenous ( Sodium Chloride/ Potassium Phosphate/ Infuvite Sam... 1,512 ml @ 63 mls/hr TPN CONT IV Last administered on 06/21/16 21:22; Start 06/21/16 at 22:00; Stop 06/22/16 at 21:59 Insulin Detemir (Levemir) 20 units QHS SQ Last administered on 06/21/16 21:23 ; Start 06/21/16 at 21:00 Active Scripts Active Ciprofloxacin 250 Mg/5 Ml Christina.mc.rec 250 Mg PO BID Children's Aspirin (Aspirin) 81 Mg Tab.chew 81 Mg PO DAILYWBKFT 30 Days Glipizide Er (Glipizide) 5 Mg Tab.er.24 10 Mg PO DAILY Reported Pravachol (Pravastatin Sodium) 80 Mg Tablet 80 Mg PO DAILY Multi-Vitamin Daily (Multivitamin) 1 Each Tablet 1 Each PO DAILY Lisinopril 5 Mg Tablet 5 Mg PO DAILY Flonase (Fluticasone Propionate) 16 Gm [place].susp 2 [place] NS DAILY Famotidine 40 Mg Tablet 40 Mg PO DAILY Cymbalta (Duloxetine Hcl) 60 Mg Capsule.dr 60 Mg PO DAILY Docusate Sodium 100 Mg Capsule 100 Mg PO DAILY Fish Oil Concentrate Softgel (Docosahexanoic Acid/Epa) 1 Each Capsule 1 Each PO DAILY Caltrate 600 + D Tablet (Calcium Carbonate/Vitamin D3) 1 Each Tablet 1 Each PO DAILY Vitals/I & O Vital Sign - Last 24 Hours 06/21/16 06/21/16 06/21/16 06/21/16 11:00 15:00 19:00 20:00 Temp 98.0 98.2 98.6 98.0 98.2 98.6 Pulse 60 66 60 Resp 18 20 20 B/P 130/69 143/86 152/64 Pulse Ox 96 97 95 O2 Delivery Room Air Room Air Room Air Room Air 06/21/16 06/22/16 06/22/16 06/22/16 23:33 03:21 07:00 08:09 Temp 98.0 98.2 98.2 98.0 98.2 98.2 Pulse 51 54 56 56 Resp 16 16 20 B/P 151/61 152/53 163/69 163/69 Pulse Ox 96 96 97 O2 Delivery Room Air Room Air Room Air Intake and Output 06/21/16 06/21/16 06/22/16 15:00 23:00 07:00 Intake Total 1000 ml 0 ml Balance 1000 ml 0 ml YOSVANY JENSEN MD Jun 22, 2016 09:53
[2016-06-22 11:00] VITALS: BP 136/73
--- NOTE | 2016-06-22 11:29 | PDOC ---
PROGRESS NOTES Chief Complaint Chief Complaint acute metabolic encephalopathy s/p fall w/ rib fx ASSESSMENT AND PLAN: 1. R rib fxs # 6-9 with smll PTX: 2/ fall. treat symptomatically. 2. Acute encephalopathy: almost resolved. unclear etiology. unlikely infectious with LP results from 06/11; neg MRI. improvement with steroids, however. D/W Dr Albert: taper off (IV, as currently NPO) 3. Dysphagia: failed swallow eval 2 days in a row. remains NPO for now. ST ongoing. TPN started. d/w speech path: unlikely to clear up quickly. will keep over weekend, but pt may need PEG 4. Leukocytosis: fluctuating around upper normal limit with absolute neutrophilia. ESR elevated, ? inflammation (vs infection) +/- steroids 5. Colitis: suspect ischemic with hematochezia, neg C. diff. essentially resolved 6. ANT: POA, susp vasomotor etiology. now resolved 7. Hyperkalemia: POA. much improved, now stable at upper normal limit 8. DM: poorly controlled on ISS only. oral glipizide currently on hold 2/ NPO. titrate levemir with steroid taper 9. HTN: slowly improving. oral meds on hold for now 10. GERD: PPI 11. 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 Vitals Vitals Vital Signs Date Time Temp Pulse Resp B/P Pulse Ox O2 Delivery O2 Flow Rate FiO2 06/22/16 11:00 97.9 53 22 136/73 96 Room Air 97.9 Physical Exam Physical Exam mildly confused, answers a little "off" General: Alert, Cooperative, No acute distress Heart: Regular rate, Normal S1, Normal S2, No murmurs Lungs: Clear Abdomen: Normal bowel sounds, Soft, No tenderness, No masses Extremities: No cyanosis, No edema Skin: No breakdown, No significant lesion Labs LABS Laboratory Tests Test 06/21/16 11:46 06/21/16 16:32 06/21/16 21:03 06/22/16 07:47 Glucose (Fingerstick) 265mg/dL (70-99) 296mg/dL (70-99) 276mg/dL (70-99) 273mg/dL (70-99) Review of Systems Review of Systems feels fine EDDIE CHAVEZ MD Jun 22, 2016 11:29
[2016-06-22] MEDS: TPN PER PHARMACY MC PRN (11:30)
[2016-06-22 15:00] VITALS: BP 148/68
[2016-06-22] MEDS: IV NORMAL SALINE 1000ML BAG 1,000 ML IV SCH (15:05)
[2016-06-22 19:15] VITALS: BP 150/60
[2016-06-22] MEDS: ATORVASTATIN CALCIUM 20 MG TABLET PO SCH (20:18)
[2016-06-22] MEDS: INSULIN DETEMIR 300 UNITS/3 ML INSULN.PEN. SQ SCH (20:27)
[2016-06-22] MEDS ORDERED: DEXTROSE 70% IV SCH ×10 (22:00)
[2016-06-22] MEDS ORDERED: [UNRECOGNIZED DRUG - OTHER] IV SCH ×10 (22:00)
[2016-06-22] MEDS ORDERED: TOTAL PARENTERAL NUTRITION IV SCH ×10 (22:00)
[2016-06-22] MEDS ORDERED: AMINO ACIDS IV SCH ×10 (22:00)
[2016-06-22 23:00] VITALS: BP 136/63
[2016-06-23 03:00] VITALS: BP 132/42
[2016-06-23 07:00] VITALS: BP 134/62
[2016-06-23] MEDS ORDERED: ALTEPLASE 2 MG VIAL INT CAT ONE (07:00)
[2016-06-23] MEDS: ASPIRIN 81 MG TAB.CHEW PO SCH (08:00)
[2016-06-23] MEDS: GLIPIZIDE ER 5 MG TAB.ER.24 PO SCH (08:00)
[2016-06-23] MEDS: LISINOPRIL 5 MG TABLET. PO SCH (08:41)
[2016-06-23] MEDS: DULOXETINE HCL 30 MG CAPSULE.DR. PO SCH (08:41)
[2016-06-23] MEDS: OMEGA-3 FATTY ACIDS/FISH OIL 1,000 MG CAPSULE. PO SCH (08:41)
[2016-06-23] MEDS: MULTIVITAMIN with MINERAL TABLET. PO SCH (08:41)
[2016-06-23] MEDS: CALCIUM CARB/VIT D3 500/200 TABLET PO SCH (08:41)
[2016-06-23] MEDS: DOCUSATE SODIUM 100 MG CAPSULE PO SCH (08:41)
[2016-06-23] MEDS: LIDOCAINE (700MG/PATCH) PATCH. TD SCH (08:42)
[2016-06-23] MEDS: FLUTICASONE 50MCG/NASAL SPRAY 16GM BOTTLE. NS SCH (08:45)
[2016-06-23] MEDS: methylPREDNISolone SOD SUCC PF 40 MG/ML VIAL. IV SCH (08:46)
[2016-06-23] MEDS: INSULIN ASPART 300 UNITS/3 ML INSULN.PEN SQ SCH ×4 (09:03→21:19)
[2016-06-23 11:00] VITALS: BP 159/68
[2016-06-23 11:11] LABS: CALCIUM 8.9 mg/dL (8.5-10.1); CREATININE 0.6 mg/dL (0.6-1.0); GFR 95.7; POTASSIUM 3.8 mmol/L (3.5-5.1)
[2016-06-23] MEDS: TPN PER PHARMACY MC PRN (11:34)
[2016-06-23] MEDS: IV NORMAL SALINE 1000ML BAG 1,000 ML IV SCH (12:15)
--- NOTE | 2016-06-23 14:58 | PDOC ---
PROGRESS NOTES Chief Complaint Chief Complaint acute metabolic encephalopathy s/p fall w/ rib fx ASSESSMENT AND PLAN: 1. R rib fxs # 6-9 with smll PTX: 2/2 fall. treat symptomatically. 2. Acute encephalopathy: almost resolved. unclear etiology. unlikely infectious with LP results from 06/11; neg MRI. improvement with steroids, however. D/W Dr Emerson: taper off (IV, as currently NPO) 3. ? underlying dementia: has [id number] comments and questions ("I wonder how come I don't have a nose", or "did i have a fork in my nose?" when talk is about decision making - a fork in the road) 4. Dysphagia: failed swallow eval 2 days in a row. remains NPO for now. ST ongoing. TPN started. d/w speech path: unlikely to clear up quickly. will keep over weekend, but pt may need PEG. issues d/with pt and daughter at length , all questions answered 5. Leukocytosis: fluctuating around upper normal limit with absolute neutrophilia. ESR elevated, ? inflammation (vs infection) +/- steroids 6. Colitis: suspect ischemic with hematochezia, neg C. diff. essentially resolved 7. ANT: POA, susp vasomotor etiology. now resolved 8. Hyperkalemia: POA. much improved, now stable at upper normal limit 9. DM: poorly controlled on ISS only. oral glipizide currently on hold 2/2 NPO. titrate levemir with steroid taper 10. HTN: slowly improving. oral meds on hold for now 11. GERD: PPI 12. 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 Dispo: to previous A.L. vs rehab when swallowing issues resolved Vitals Vitals Vital Signs Date Time Temp Pulse Resp B/P Pulse Ox O2 Delivery O2 Flow Rate FiO2 06/23/16 11:00 97.3 48 16 159/68 97 Room Air 97.3 Physical Exam Physical Exam mildly confused, answers a little "off" General: Alert, Cooperative, No acute distress Heart: Regular rate, No murmurs Lungs: Clear Abdomen: Normal bowel sounds, Soft, No tenderness Extremities: No cyanosis, No edema Skin: No significant lesion Labs LABS Laboratory Tests Test 06/22/16 17:10 06/22/16 20:20 06/22/16 20:56 06/23/16 08:09 Glucose (Fingerstick) 267mg/dL (70-99) 212mg/dL (70-99) 210mg/dL (70-99) 203mg/dL (70-99) Test 06/23/16 10:45 06/23/16 11:40 Sodium Level 140mmol/L (136-145) Potassium Level 3.8mmol/L (3.5-5.1) Chloride Level 105mmol/L (98-107) Carbon Dioxide Level 27mmol/L (21-32) Anion Gap 8 (6-14) Blood Urea Nitrogen 23mg/dL (7-20) Creatinine 0.6mg/dL (0.6-1.0) Estimated GFR (Cockcroft-Gault) 95.7 Glucose Level 158mg/dL (70-99) Calcium Level 8.9mg/dL (8.5-10.1) Glucose (Fingerstick) 220mg/dL (70-99) Review of Systems Review of Systems feels fine, no acute issues EDDIE CHAVEZ MD Jun 23, 2016 14:58
[2016-06-23 15:00] VITALS: BP 129/51
[2016-06-23 19:20] VITALS: BP 149/62
[2016-06-23] MEDS ORDERED: methylPREDNISolone SOD SUCC PF 40 MG/ML VIAL. IV SCH (21:00)
[2016-06-23] MEDS: ATORVASTATIN CALCIUM 20 MG TABLET PO SCH (21:00)
[2016-06-23] MEDS: INSULIN DETEMIR 300 UNITS/3 ML INSULN.PEN. SQ SCH (21:18)
[2016-06-23] MEDS ORDERED: [UNRECOGNIZED DRUG - OTHER] IV SCH ×10 (22:00)
[2016-06-23] MEDS ORDERED: TOTAL PARENTERAL NUTRITION IV SCH ×10 (22:00)
[2016-06-23] MEDS ORDERED: DEXTROSE 70% IV SCH ×10 (22:00)
[2016-06-23] MEDS ORDERED: AMINO ACIDS IV SCH ×10 (22:00)
[2016-06-23 23:09] VITALS: BP 148/69
[2016-06-24 03:31] VITALS: BP 144/68
[2016-06-24] MEDS: IV NORMAL SALINE 1000ML BAG 1,000 ML IV SCH (05:04)
[2016-06-24 07:00] VITALS: BP 138/61
[2016-06-24] MEDS: ASPIRIN 81 MG TAB.CHEW PO SCH (08:00)
[2016-06-24] MEDS: GLIPIZIDE ER 5 MG TAB.ER.24 PO SCH (08:00)
[2016-06-24] MEDS: CALCIUM CARB/VIT D3 500/200 TABLET PO SCH (08:23)
[2016-06-24] MEDS: DOCUSATE SODIUM 100 MG CAPSULE PO SCH (08:23)
[2016-06-24] MEDS: OMEGA-3 FATTY ACIDS/FISH OIL 1,000 MG CAPSULE. PO SCH (08:23)
[2016-06-24] MEDS: DULOXETINE HCL 30 MG CAPSULE.DR. PO SCH (08:23)
[2016-06-24] MEDS: LIDOCAINE (700MG/PATCH) PATCH. TD SCH (08:24)
[2016-06-24] MEDS: MULTIVITAMIN with MINERAL TABLET. PO SCH (08:24)
[2016-06-24] MEDS: LISINOPRIL 5 MG TABLET. PO SCH (08:24)
[2016-06-24] MEDS: methylPREDNISolone SOD SUCC PF 40 MG/ML VIAL. IV SCH ×2 (08:30→22:05)
[2016-06-24] MEDS: FLUTICASONE 50MCG/NASAL SPRAY 16GM BOTTLE. NS SCH (08:31)
[2016-06-24] MEDS: PANTOPRAZOLE IV PUSH 40 MG VIAL. IVP SCH (08:31)
[2016-06-24] MEDS: INSULIN ASPART 300 UNITS/3 ML INSULN.PEN SQ SCH ×4 (08:40→22:11)
[2016-06-24 11:00] VITALS: BP 152/65
[2016-06-24] MEDS: TPN PER PHARMACY MC PRN (14:18)
--- NOTE | 2016-06-24 14:39 | PDOC ---
PROGRESS NOTES Chief Complaint Chief Complaint acute metabolic encephalopathy s/p fall w/ rib fx ASSESSMENT AND PLAN: 1. R rib fxs # 6-9 with smll PTX: 2/ fall. treat symptomatically. moving w /o difficulties 2. Acute encephalopathy: almost resolved. unclear etiology. unlikely infectious with LP results from 06/11; neg MRI. improvement with steroids, however. D/W Dr Emerson: taper off (IV, as currently NPO) 3. ? underlying dementia: has vel-cce-xgil comments and questions ("I wonder how come I don't have a nose", or "did i have a fork in my nose?" when talk is about decision making - a fork in the road) 4. Dysphagia: failed swallow eval 2 days in a row. remains NPO for now. ST ongoing. TPN started. d/w speech path: unlikely to clear up quickly. will keep over weekend, but pt may need PEG. 5. Leukocytosis: fluctuating around upper normal limit with absolute neutrophilia. ESR elevated, ? inflammation +/- steroids 6. Colitis: suspect ischemic with hematochezia, neg C. diff. essentially resolved 7. ANT: POA, susp vasomotor etiology. now resolved 8. Hyperkalemia: POA. resolved 9. DM: oral glipizide currently on hold 2/2 NPO. poorly controlled on ISS only. titrate levemir with steroid taper 10. HTN: slowly improving. oral meds on hold for now. PRN hydralazine 11. GERD: PPI 12. 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 Dispo: to previous A.L. vs rehab when swallowing issues resolved Vitals Vitals Vital Signs Date Time Temp Pulse Resp B/P Pulse Ox O2 Delivery O2 Flow Rate FiO2 06/24/16 11:00 98.0 60 16 152/65 97 Room Air 98.0 Physical Exam General: Alert, Cooperative, No acute distress Heart: Regular rate, No murmurs Lungs: Clear Abdomen: Normal bowel sounds, Soft, No tenderness Extremities: No cyanosis, No edema Skin: No significant lesion Labs LABS Laboratory Tests Test 06/23/16 16:54 06/23/16 20:57 06/24/16 07:36 06/24/16 11:48 Glucose (Fingerstick) 276mg/dL (70-99) 234mg/dL (70-99) 291mg/dL (70-99) 245mg/dL (70-99) Review of Systems Review of Systems no c/o feels EDDIE Boyd MD Jun 24, 2016 14:39
[2016-06-24 15:00] VITALS: BP 161/98
[2016-06-24 15:11] LABS: NEG OBC FOB NEG; POS OBC FOB POS
[2016-06-24 19:15] VITALS: BP 130/51
[2016-06-24] MEDS: ATORVASTATIN CALCIUM 20 MG TABLET PO SCH (21:00)
[2016-06-24] MEDS ORDERED: AMINO ACIDS IV SCH ×10 (22:00)
[2016-06-24] MEDS ORDERED: TOTAL PARENTERAL NUTRITION IV SCH ×10 (22:00)
[2016-06-24] MEDS ORDERED: [UNRECOGNIZED DRUG - OTHER] IV SCH ×10 (22:00)
[2016-06-24] MEDS ORDERED: DEXTROSE 70% IV SCH ×10 (22:00)
[2016-06-24] MEDS: INSULIN DETEMIR 300 UNITS/3 ML INSULN.PEN. SQ SCH (22:09)
[2016-06-24 23:07] VITALS: BP 140/60
[2016-06-25 03:18] VITALS: BP 156/65
[2016-06-25 06:22] LABS: BASO % 0 % (0-3); EOS % 0 % (0-3); HEMATOCRIT 36.8 % (36.0-47.0); HEMOGLOBIN 11.9 g/dL (12.0-15.5); LYMPH # 1.5 x10^3/uL (1.0-4.8); LYMPH % 14 % (24-48); MEAN CORPUSCULAR HEMOGLOBIN 30 pg (25-35); MEAN CORPUSCULAR HGB CONC 32 g/dL (31-37); MEAN CORPUSCULAR VOLUME 93 fL (79-100); MONO % 6 % (0-9); NEUT % 80 % (31-73); PLATELET COUNT 293 x10^3/uL (140-400); RED BLOOD COUNT 3.96 x10^6/uL (3.50-5.40); RED CELL DISTRIBUTION WIDTH 13.8 % (11.5-14.5); WHITE BLOOD COUNT 10.8 x10^3/uL (4.0-11.0)
[2016-06-25 06:55] LABS: CALCIUM 8.4 mg/dL (8.5-10.1); CREATININE 0.6 mg/dL (0.6-1.0); GFR 95.7; POTASSIUM 3.8 mmol/L (3.5-5.1)
[2016-06-25 07:00] VITALS: BP 146/64
[2016-06-25] MEDS: ASPIRIN 81 MG TAB.CHEW PO SCH (08:00)
[2016-06-25] MEDS: GLIPIZIDE ER 5 MG TAB.ER.24 PO SCH (08:00)
[2016-06-25] MEDS: CALCIUM CARB/VIT D3 500/200 TABLET PO SCH (09:00)
[2016-06-25] MEDS: LISINOPRIL 5 MG TABLET. PO SCH (09:00)
[2016-06-25] MEDS ORDERED: methylPREDNISolone SOD SUCC PF 40 MG/ML VIAL. IV ONE (09:00)
[2016-06-25] MEDS ORDERED: methylPREDNISolone SOD SUCC PF 40 MG/ML VIAL. IV SCH (09:00)
[2016-06-25] MEDS: DOCUSATE SODIUM 100 MG CAPSULE PO SCH (09:00)
[2016-06-25] MEDS: DULOXETINE HCL 30 MG CAPSULE.DR. PO SCH (09:00)
[2016-06-25] MEDS: OMEGA-3 FATTY ACIDS/FISH OIL 1,000 MG CAPSULE. PO SCH (09:00)
[2016-06-25] MEDS: MULTIVITAMIN with MINERAL TABLET. PO SCH (09:00)
[2016-06-25] MEDS: PANTOPRAZOLE IV PUSH 40 MG VIAL. IVP SCH (09:12)
[2016-06-25] MEDS: FLUTICASONE 50MCG/NASAL SPRAY 16GM BOTTLE. NS SCH (09:12)
[2016-06-25] MEDS: LIDOCAINE (700MG/PATCH) PATCH. TD SCH (09:12)
[2016-06-25] MEDS: INSULIN ASPART 300 UNITS/3 ML INSULN.PEN SQ SCH ×4 (09:24→22:19)
--- NOTE | 2016-06-25 10:35 | PDOC ---
PROGRESS NOTES Chief Complaint Chief Complaint acute metabolic encephalopathy s/p fall w/ rib fx ASSESSMENT AND PLAN: 1. R rib fxs # 6-9 with smll PTX: 2/ fall. treat symptomatically. moving w /o difficulties 2. Acute encephalopathy: almost resolved. unclear etiology. unlikely infectious with LP results from 06/11; neg MRI. improvement with steroids, however. D/W Dr Emerson: taper off (IV, as currently NPO) 3. ? underlying dementia: has [id number] comments and questions ("I wonder how come I don't have a nose", or "did i have a fork in my nose?" when talk is about decision making - a fork in the road) 4. Dysphagia: failed swallow eval 2 days in a row. remains NPO for now. ST ongoing. TPN started. d/w speech path: unlikely to clear up quickly. will keep over weekend, but pt may need PEG. 5. Leukocytosis: fluctuating around upper normal limit with absolute neutrophilia. ESR elevated, ? inflammation +/- steroids 6. Colitis: suspect ischemic with hematochezia, neg C. diff. essentially resolved 7. ANT: POA, susp vasomotor etiology. now resolved 8. Hyperkalemia: POA. resolved 9. DM: oral glipizide currently on hold 2/ NPO. poorly controlled on ISS only. titrate levemir with steroid taper 10. HTN: slowly improving. oral meds on hold for now. PRN hydralazine 11. GERD: PPI 12. 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 Dispo: to previous A.L. vs rehab when swallowing issues resolved History of Present Illness History of Present Illness Slightly confused LAbs stable VS stable Still NPO, another swallow eval today PICC running GI on standby for possible pEG PLAN: LTAC screen Await REFERENCE INVESTIGATOR re eval dw RN and SW Vitals Vitals Vital Signs Date Time Temp Pulse Resp B/P Pulse Ox O2 Delivery O2 Flow Rate FiO2 06/25/16 07:30 Room Air 06/25/16 07:00 97.4 63 16 146/64 97 97.4 Physical Exam General: Alert, Cooperative, No acute distress Heart: Regular rate, No murmurs Lungs: Clear Abdomen: Normal bowel sounds, Soft, No tenderness Extremities: No cyanosis, No edema Skin: No significant lesion Labs LABS Laboratory Tests Test 06/24/16 11:48 06/24/16 14:52 06/24/16 16:54 06/24/16 20:35 Glucose (Fingerstick) 245mg/dL (70-99) 253mg/dL (70-99) 207mg/dL (70-99) Stool Occult Blood Positive (NEG) Test 06/25/16 06:00 06/25/16 08:26 White Blood Count 10.8x10^3/uL (4.0-11.0) Red Blood Count 3.96x10^6/uL (3.50-5.40) Hemoglobin 11.9g/dL (12.0-15.5) Hematocrit 36.8% (36.0-47.0) Mean Corpuscular Volume 93fL (79-100) Mean Corpuscular Hemoglobin 30pg (25-35) Mean Corpuscular Hemoglobin Concent 32g/dL (31-37) Red Cell Distribution Width 13.8% (11.5-14.5) Platelet Count 293x10^3/uL (140-400) Neutrophils (%) (Auto) 80% (31-73) Lymphocytes (%) (Auto) 14% (24-48) Monocytes (%) (Auto) 6% (0-9) Eosinophils (%) (Auto) 0% (0-3) Basophils (%) (Auto) 0% (0-3) Neutrophils # (Auto) 8.6x10^3uL (1.8-7.7) Lymphocytes # (Auto) 1.5x10^3/uL (1.0-4.8) Monocytes # (Auto) 0.6x10^3/uL (0.0-1.1) Eosinophils # (Auto) 0.0x10^3/uL (0.0-0.7) Basophils # (Auto) 0.0x10^3/uL (0.0-0.2) Sodium Level 141mmol/L (136-145) Potassium Level 3.8mmol/L (3.5-5.1) Chloride Level 105mmol/L (98-107) Carbon Dioxide Level 25mmol/L (21-32) Anion Gap 11 (6-14) Blood Urea Nitrogen 23mg/dL (7-20) Creatinine 0.6mg/dL (0.6-1.0) Estimated GFR (Cockcroft-Gault) 95.7 Glucose Level 237mg/dL (70-99) Calcium Level 8.4mg/dL (8.5-10.1) Glucose (Fingerstick) 236mg/dL (70-99) Review of Systems Review of Systems confused Assessment and Plan Assessmemt and Plan Problems Medical Problems: (1) Fall Status: Acute (2) Fall (on) (from) other stairs and steps, initial encounter Status: Acute (3) Ribs, multiple fractures Status: Acute Problems: Comment Review of Relevant I have reviewed the following items quincy (where applicable) has been applied. Labs Laboratory Tests Test 06/23/16 10:45 06/23/16 11:40 06/23/16 16:54 06/23/16 20:57 Sodium Level 140mmol/L (136-145) Potassium Level 3.8mmol/L (3.5-5.1) Chloride Level 105mmol/L (98-107) Carbon Dioxide Level 27mmol/L (21-32) Anion Gap 8 (6-14) Blood Urea Nitrogen 23mg/dL (7-20) Creatinine 0.6mg/dL (0.6-1.0) Estimated GFR (Cockcroft-Gault) 95.7 Glucose Level 158mg/dL (70-99) Calcium Level 8.9mg/dL (8.5-10.1) Glucose (Fingerstick) 220mg/dL (70-99) 276mg/dL (70-99) 234mg/dL (70-99) Test 06/24/16 07:36 06/24/16 11:48 06/24/16 14:52 06/24/16 16:54 Glucose (Fingerstick) 291mg/dL (70-99) 245mg/dL (70-99) 253mg/dL (70-99) Stool Occult Blood Positive (NEG) Test 06/24/16 20:35 06/25/16 06:00 06/25/16 08:26 Glucose (Fingerstick) 207mg/dL (70-99) 236mg/dL (70-99) White Blood Count 10.8x10^3/uL (4.0-11.0) Red Blood Count 3.96x10^6/uL (3.50-5.40) Hemoglobin 11.9g/dL (12.0-15.5) Hematocrit 36.8% (36.0-47.0) Mean Corpuscular Volume 93fL (79-100) Mean Corpuscular Hemoglobin 30pg (25-35) Mean Corpuscular Hemoglobin Concent 32g/dL (31-37) Red Cell Distribution Width 13.8% (11.5-14.5) Platelet Count 293x10^3/uL (140-400) Neutrophils (%) (Auto) 80% (31-73) Lymphocytes (%) (Auto) 14% (24-48) Monocytes (%) (Auto) 6% (0-9) Eosinophils (%) (Auto) 0% (0-3) Basophils (%) (Auto) 0% (0-3) Neutrophils # (Auto) 8.6x10^3uL (1.8-7.7) Lymphocytes # (Auto) 1.5x10^3/uL (1.0-4.8) Monocytes # (Auto) 0.6x10^3/uL (0.0-1.1) Eosinophils # (Auto) 0.0x10^3/uL (0.0-0.7) Basophils # (Auto) 0.0x10^3/uL (0.0-0.2) Sodium Level 141mmol/L (136-145) Potassium Level 3.8mmol/L (3.5-5.1) Chloride Level 105mmol/L (98-107) Carbon Dioxide Level 25mmol/L (21-32) Anion Gap 11 (6-14) Blood Urea Nitrogen 23mg/dL (7-20) Creatinine 0.6mg/dL (0.6-1.0) Estimated GFR (Cockcroft-Gault) 95.7 Glucose Level 237mg/dL (70-99) Calcium Level 8.4mg/dL (8.5-10.1) Laboratory Tests Test 06/24/16 11:48 06/24/16 14:52 06/24/16 16:54 06/24/16 20:35 Glucose (Fingerstick) 245mg/dL (70-99) 253mg/dL (70-99) 207mg/dL (70-99) Stool Occult Blood Positive (NEG) Test 06/25/16 06:00 06/25/16 08:26 White Blood Count 10.8x10^3/uL (4.0-11.0) Red Blood Count 3.96x10^6/uL (3.50-5.40) Hemoglobin 11.9g/dL (12.0-15.5) Hematocrit 36.8% (36.0-47.0) Mean Corpuscular Volume 93fL (79-100) Mean Corpuscular Hemoglobin 30pg (25-35) Mean Corpuscular Hemoglobin Concent 32g/dL (31-37) Red Cell Distribution Width 13.8% (11.5-14.5) Platelet Count 293x10^3/uL (140-400) Neutrophils (%) (Auto) 80% (31-73) Lymphocytes (%) (Auto) 14% (24-48) Monocytes (%) (Auto) 6% (0-9) Eosinophils (%) (Auto) 0% (0-3) Basophils (%) (Auto) 0% (0-3) Neutrophils # (Auto) 8.6x10^3uL (1.8-7.7) Lymphocytes # (Auto) 1.5x10^3/uL (1.0-4.8) Monocytes # (Auto) 0.6x10^3/uL (0.0-1.1) Eosinophils # (Auto) 0.0x10^3/uL (0.0-0.7) Basophils # (Auto) 0.0x10^3/uL (0.0-0.2) Sodium Level 141mmol/L (136-145) Potassium Level 3.8mmol/L (3.5-5.1) Chloride Level 105mmol/L (98-107) Carbon Dioxide Level 25mmol/L (21-32) Anion Gap 11 (6-14) Blood Urea Nitrogen 23mg/dL (7-20) Creatinine 0.6mg/dL (0.6-1.0) Estimated GFR (Cockcroft-Gault) 95.7 Glucose Level 237mg/dL (70-99) Calcium Level 8.4mg/dL (8.5-10.1) Glucose (Fingerstick) 236mg/dL (70-99) Microbiology 06/10/16 Blood Culture - Final, Complete NO GROWTH AFTER 5 DAYS 06/11/16 Gram Stain - Final, Complete 06/08/16 Urine Culture - Final, Complete 06/08/16 Urine Culture Result 1 (ALEJO) - Final, Complete Medications Current Medications Lidocaine (Lidoderm) 1 patch 1X ONCE TD Last administered on 06/08/16 09:12; Start 06/08/16 at 09:00; Stop 06/08/16 at 09:01; Status DC Acetaminophen (Tylenol) 1,000 mg 1X ONCE PO Last administered on 06/08/16 09: 12; Start 06/08/16 at 09:00; Stop 06/08/16 at 09:01; Status DC Oxycodone/ Acetaminophen (Percocet 5/325) 1 tab 1X ONCE PO Last administered on 06/08/16 10:00; Start 06/08/16 at 10:00; Stop 06/08/16 at 10:01; Status DC Ondansetron HCl (Zofran) 4 mg PRN Q6HRS PRN IV NAUSEA/VOMITING; Start 06/08/16 at 12:00; Stop 06/12/16 at 09:19; Status DC Al Hydrox/Mg Hydrox/Simethicone (Mylanta Plus Xs) 30 ml PRN Q3HRS PRN PO HEARTBURN / GAS; Start 06/08/16 at 12:00; Stop 06/12/16 at 09:19; Status DC Calcium Carbonate/ Glycine (Tums) 500 mg PRN Q3HRS PRN PO UPSET STOMACH; Start 06/08/16 at 12:00; Stop 06/12/16 at 09:19; Status DC Oxycodone HCl (Roxicodone) 5 mg PRN Q3HRS PRN PO BREAKTHROUGH PAIN; Start at 12:00; Stop 06/12/16 at 09:19; Status DC Morphine Sulfate 1 mg PRN Q2HR PRN IV PAIN; Start 06/08/16 at 12:00; Stop at 09:19; Status DC Oxycodone/ Acetaminophen (Percocet 5/325) 1 tab PRN Q4HRS PRN PO MILD PAIN, 1ST CHOICE Last administered on 06/09/16 15:03; Start 06/08/16 at 12:00; Stop 06/12/16 at 09:19; Status DC Docusate Sodium (Colace) 100 mg BID PO ; Start 06/08/16 at 21:00; Status Cancel Magnesium Hydroxide (Milk Of Magnesia) 2,400 mg PRN Q12HR PRN PO CONSTIPATION; Start 06/08/16 at 12:00; Stop 06/12/16 at 09:19; Status DC Lactulose 20 gm PRN Q12HR PRN PO CONSTIPATION; Start 06/08/16 at 12:00; Stop 06/12/16 at 09:19; Status DC Bisacodyl (Dulcolax Supp) 10 mg PRN DAILY PRN MS CONSTIPATION; Start 06/08/16 at 12:00; Stop 06/12/16 at 09:19; Status DC Enoxaparin Sodium (Lovenox 40mg Syringe) 40 mg DAILY16 SQ Last administered on 06/09/16 15:03; Start 06/08/16 at 16:00; Stop 06/10/16 at 12:52; Status DC Lidocaine (Lidoderm) 1 patch DAILY TD Last administered on 06/25/16 09:12; Start 06/08/16 at 13:00 Aspirin (Children'S Aspirin) 81 mg DAILYWBKFT PO Last administered on 06/09/16 07:41; Start 06/08/16 at 13:00 Docusate Sodium (Colace) 100 mg DAILY PO Last administered on 06/09/16 09:00; Start 06/09/16 at 09:00 Fluticasone Propionate (Flonase) 2 spray DAILY NS Last administered on 09:12; Start 06/08/16 at 13:00 Glipizide (Glucotrol Er) 10 mg DAILY08 PO Last administered on 06/09/16 07:38; Start 06/08/16 at 13:00 Lisinopril (Prinivil) 5 mg DAILY PO Last administered on 06/09/16 07:39; Start 06/08/16 at 13:00 Calcium/Vitamin D (Oscal D 500mg/ 200uts) 1 tab DAILY PO Last administered on 07:39; Start 06/08/16 at 13:00 Fish Oil (Fish Oil) 1,000 mg DAILY PO Last administered on 06/09/16 07:38; Start 06/08/16 at 13:00 Duloxetine HCl (Cymbalta) 60 mg DAILY PO Last administered on 06/09/16 07:40; Start 06/08/16 at 13:00 Famotidine (Pepcid) 40 mg DAILY PO Last administered on 06/09/16 07:40; Start 06/08/16 at 13:00; Stop 06/10/16 at 11:55; Status DC Multivitamins/ Calcium (Thera M Plus) 1 tab DAILY PO Last administered on 07:39; Start 06/08/16 at 13:00 Atorvastatin Calcium (Lipitor) 20 mg QHS PO Last administered on 06/08/16 20:56 ; Start 06/08/16 at 21:00 Insulin Aspart (Novolog) 0-9 UNITS TIDWMEALS SQ Last administered on 06/13/16 17:49; Start 06/08/16 at 12:30; Stop 06/13/16 at 20:54; Status DC Dextrose 12.5 gm PRN Q15MIN PRN IV SEE COMMENTS; Start 06/08/16 at 12:15 Ondansetron HCl 4 mg 4 mg PRN Q8HRS PRN IV NAUSEA/VOMITING; Start 06/08/16 at 12 :45; Stop 06/09/16 at 12:44; Status DC Piperacillin Sod/ Tazobactam Sod/ Sodium Chloride (Zosyn/Iv Sodium Chloride 0.9 % 50ml) 50 ml @ 100 mls/hr Q6HRS IV Last administered on 06/17/16 12:28; Start 06/10/16 at 12:00; Stop 06/17/16 at 13:13; Status DC Pantoprazole Sodium 40 mg 40 mg DAILYAC IVP Last administered on 06/25/16 09: 12; Start 06/10/16 at 11:00 Amino Acids/ Electrolytes/ Dextrose 1,000 ml @ 75 mls/hr [id number] PRN IV . Last administered on 06/14/16 20:34; Start 06/10/16 at 11:00; Stop 06/15/16 at 21:59; Status DC Sodium Chloride (Iv Sodium Chloride 0.9% 1000ml Bag) 1,000 ml @ 50 mls/hr Q20H IV Last administered on 06/24/16 05:04; Start 06/10/16 at 11:00; Stop 06/24/16 at 14:37; Status DC Naloxone HCl (Narcan) 0.4 mg PRN Q2MIN PRN IV SEE COMMENTS; Start 06/10/16 at 11 :30 Naloxone HCl 0.4 mg 0.4 mg 1X ONCE IV Last administered on 06/10/16 12:07; Start 06/10/16 at 12:00; Stop 06/10/16 at 12:01; Status DC Daptomycin 500 mg/ Sodium Chloride 50 ml @ 100 mls/hr Q24H IV Last administered on 06/10/16 14:56; Start 06/10/16 at 14:00; Stop 06/10/16 at 18:00; Status DC Metronidazole (FLAGYL 500Mmg PREMIX) 100 ml @ 100 mls/hr Q8H IV Last administered on 06/12/16 08:08; Start 06/10/16 at 16:00; Stop 06/12/16 at 09:07; Status DC Lorazepam (Ativan) 1 mg PRN Q4HRS PRN IV ANXIETY / AGITATION Last administered on 06/10/16 17:28; Start 06/10/16 at 17:00; Stop 06/12/16 at 09:19; Status DC Flumazenil 0.1 mg 0.1 mg 1X ONCE IV Last administered on 06/11/16 15:15; Start 06/11/16 at 14:30; Stop 06/11/16 at 14:33; Status DC Acyclovir Sodium/ Dextrose (Zovirax) 262.4 ml @ 262.4 mls/ hr Q8HRS IV Last administered on 06/17/16 05:10; Start 06/13/16 at 09:00; Stop 06/17/16 at 13:13 ; Status DC Alteplase, Recombinant (Cathflo) 2 mg 1X ONCE INT CAT Last administered on 06/13 16:14; Start 06/13/16 at 15:00; Stop 06/13/16 at 15:01; Status DC Insulin Aspart (Novolog) 0-9 UNITS QIDACHS SQ Last administered on 06/22/16 12 :20; Start 06/13/16 at 21:00; Stop 06/22/16 at 13:37; Status DC Info 1 each 1 each PRN DAILY PRN MC SEE COMMENTS Last administered on 14:18; Start 06/15/16 at 11:00 Sodium Chloride/ Potassium Chloride/ Potassium Phosphate/ Magnesium Sulfate/ Calcium Gluconate/ Multivitamins/ Chromium/Copper/ Manganese/Seleni/ Zn/Total Parenteral Nutrition/Amino Acids/Dextrose/ Fat Emulsion Intravenous (Sodium Chloride/ Potassium Phospha... 1,512 ml @ 63 mls/hr TPN CONT IV Last administered on 06/15/16 21:21; Start 06/15/16 at 22:00; Stop 06/16/16 at 21:59 ; Status DC Saliva Substitute 2 spray 2 spray PRN Q15MIN PRN PO DRY MOUTH; Start 06/16/16 at 11:15 Sodium Chloride/ Potassium Chloride/ Potassium Phosphate/ Magnesium Sulfate/ Calcium Gluconate/ Multivitamins/ Chromium/Copper/ Manganese/Seleni/ Zn/Total Parenteral Nutrition/Amino Acids/Dextrose/ Fat Emulsion Intravenous (Sodium Chloride/ Potassium Phospha... 1,512 ml @ 63 mls/hr TPN CONT IV Last administered on 06/16/16 22:11; Start 06/16/16 at 22:00; Stop 06/17/16 at 21:59 ; Status DC Insulin Detemir (Levemir) 8 units 1X ONCE SQ ; Start 06/16/16 at 15:00; Stop at 15:00; Status DC Insulin Detemir 12 units 12 units 1X ONCE SQ Last administered on 06/16/16 16 :31; Start 06/16/16 at 15:30; Stop 06/16/16 at 15:31; Status DC Sodium Chloride/ Potassium Chloride/ Potassium Phosphate/ Magnesium Sulfate/ Calcium Gluconate/ Multivitamins/ Chromium/Copper/ Manganese/Seleni/ Zn/Total Parenteral Nutrition/Amino Acids/Dextrose/ Fat Emulsion Intravenous (Sodium Chloride/ Potassium Phospha... 1,512 ml @ 63 mls/hr TPN CONT IV Last administered on 06/17/16 22:01; Start 06/17/16 at 22:00; Stop 06/18/16 at 21:59 ; Status DC Methylprednisolone Sodium Succinate 125 mg 125 mg 1X ONCE IV Last administered on 06/18/16 10:53; Start 06/18/16 at 09:45; Stop 06/18/16 at 09:46 ; Status DC Sodium Chloride 90 meq/Potassium Chloride 40 meq/ Potassium Phosphate 13.6 mmol/ Magnesium Sulfate 10 meq/ Calcium Gluconate 5 meq/ Multivitamins 10 ml/Chromium / Copper/Manganese/ Seleni/Zn 1 ml/ Total Parenteral Nutrition/Amino Acids/ Dextrose/ Fat Emulsion Intravenous 1,512 ml @ 63 mls/hr TPN CONT IV Last administered on 06/18/16 21:16; Start 06/18/16 at 22:00; Stop 06/19/16 at 21:59 ; Status DC Sodium Chloride/ Potassium Chloride/ Potassium Phosphate/ Magnesium Sulfate/ Calcium Gluconate/ Multivitamins/ Chromium/Copper/ Manganese/Seleni/ Zn/Total Parenteral Nutrition/Amino Acids/Dextrose/ Fat Emulsion Intravenous (Sodium Chloride/ Potassium Phospha... 1,512 ml @ 63 mls/hr TPN CONT IV Last administered on 06/19/16 20:42; Start 06/19/16 at 22:00; Stop 06/20/16 at 21:59 ; Status DC Methylprednisolone Sodium Succinate (Solu-Medrol 40mg Vial) 40 mg Q8HRS IV Last administered on 06/22/16 06:02; Start 06/19/16 at 14:00; Stop 06/22/16 at 13:13; Status DC Barium Sulfate 148 gm 148 gm 1X ONCE PO Last administered on 06/19/16 11:30; Start 06/19/16 at 11:30; Stop 06/19/16 at 11:32; Status DC Sodium Chloride/ Potassium Phosphate/ Magnesium Sulfate/ Calcium Gluconate/ Multivitamins/ Chromium/Copper/ Manganese/Seleni/ Zn/Total Parenteral Nutrition/ Amino Acids/Dextrose/ Fat Emulsion Intravenous (Sodium Chloride/ Potassium Phosphate/ Infuvite Adult/ Multitrace-5 Co... 1,512 ml @ 63 mls/hr TPN CONT IV Last administered on 06/20/16 21:57; Start 06/20/16 at 22:00; Stop at 21:59; Status DC Insulin Detemir 12 units 12 units QHS SQ Last administered on 06/20/16 22:01; Start 06/20/16 at 21:00; Stop 06/21/16 at 20:10; Status DC Sodium Chloride/ Potassium Phosphate/ Magnesium Sulfate/ Calcium Gluconate/ Multivitamins/ Chromium/Copper/ Manganese/Seleni/ Zn/Insulin Human Regular/ Total Parenteral Nutrition/Amino Acids/Dextrose/ Fat Emulsion Intravenous ( Sodium Chloride/ Potassium Phosphate/ Infuvite Sam... 1,512 ml @ 63 mls/hr TPN CONT IV Last administered on 06/21/16 21:22; Start 06/21/16 at 22:00; Stop 06/22/16 at 21:59; Status DC Insulin Detemir 20 units 20 units QHS SQ Last administered on 06/23/16 21:18; Start 06/21/16 at 21:00; Stop 06/24/16 at 14:37; Status DC Sodium Chloride/ Potassium Phosphate/ Magnesium Sulfate/ Calcium Gluconate/ Multivitamins/ Chromium/Copper/ Manganese/Seleni/ Zn/Insulin Human Regular/ Total Parenteral Nutrition/Amino Acids/Dextrose/ Fat Emulsion Intravenous ( Sodium Chloride/ Potassium Phosphate/ Infuvite Sam... 1,512 ml @ 63 mls/hr TPN CONT IV Last administered on 06/22/16 20:32; Start 06/22/16 at 22:00; Stop 06/23/16 at 21:59; Status DC Methylprednisolone Sodium Succinate (Solu-Medrol 40mg Vial) 40 mg Q12HR IV Last administered on 06/23/16 08:46; Start 06/22/16 at 21:00; Stop 06/23/16 at 16:47; Status DC Methylprednisolone Sodium Succinate (Solu-Medrol 40mg Vial) 20 mg Q12HR IV ; Start 06/25/16 at 09:00; Stop 06/25/16 at 09:00; Status DC Insulin Aspart (Novolog) 0-12 UNITS QIDACHS SQ Last administered on 06/25/16 09:24; Start 06/22/16 at 16:30 Alteplase, Recombinant 2 mg 2 mg 1X ONCE INT CAT Last administered on 08:49; Start 06/23/16 at 07:00; Stop 06/23/16 at 07:01; Status DC Sodium Chloride/ Potassium Phosphate/ Magnesium Sulfate/ Calcium Gluconate/ Multivitamins/ Chromium/Copper/ Manganese/Seleni/ Zn/Insulin Human Regular/ Total Parenteral Nutrition/Amino Acids/Dextrose/ Fat Emulsion Intravenous ( Sodium Chloride/ Potassium Phosphate/ Infuvite Sam... 1,512 ml @ 63 mls/hr TPN CONT IV Last administered on 06/23/16 21:19; Start 06/23/16 at 22:00; Stop 06/24/16 at 21:59; Status DC Methylprednisolone Sodium Succinate (Solu-Medrol 40mg Vial) 40 mg Q12HR IV Last administered on 06/23/16 21:11; Start 06/23/16 at 21:00; Stop 06/23/16 at 23:00; Status DC Methylprednisolone Sodium Succinate (Solu-Medrol 40mg Vial) 20 mg Q12HR IV Last administered on 06/24/16 22:05; Start 06/24/16 at 09:00; Stop 06/24/16 at 21:01; Status DC Methylprednisolone Sodium Succinate (Solu-Medrol 40mg Vial) 20 mg 1X ONCE IV Last administered on 06/25/16 09:13; Start 06/25/16 at 09:00; Stop 06/25/16 at 09:01; Status DC Methylprednisolone Sodium Succinate 10 mg 10 mg 1X ONCE IV ; Start 06/26/16 at 09:00; Stop 06/26/16 at 09:01 Sodium Chloride/ Potassium Phosphate/ Magnesium Sulfate/ Calcium Gluconate/ Multivitamins/ Chromium/Copper/ Manganese/Seleni/ Zn/Insulin Human Regular/ Total Parenteral Nutrition/Amino Acids/Dextrose/ Fat Emulsion Intravenous ( Sodium Chloride/ Potassium Phosphate/ Infuvite Sam... 1,512 ml @ 63 mls/hr TPN CONT IV Last administered on 06/24/16 22:10; Start 06/24/16 at 22:00; Stop 06/25/16 at 21:59 Insulin Detemir (Levemir) 25 units QHS SQ Last administered on 06/24/16 22:09 ; Start 06/24/16 at 21:00 Active Scripts Active Ciprofloxacin 250 Mg/5 Ml Christina.mc.rec 250 Mg PO BID Children's Aspirin (Aspirin) 81 Mg Tab.chew 81 Mg PO DAILYWBKFT 30 Days Glipizide Er (Glipizide) 5 Mg Tab.er.24 10 Mg PO DAILY Reported Pravachol (Pravastatin Sodium) 80 Mg Tablet 80 Mg PO DAILY Multi-Vitamin Daily (Multivitamin) 1 Each Tablet 1 Each PO DAILY Lisinopril 5 Mg Tablet 5 Mg PO DAILY Flonase (Fluticasone Propionate) 16 Gm [place].susp 2 [place] NS DAILY Famotidine 40 Mg Tablet 40 Mg PO DAILY Cymbalta (Duloxetine Hcl) 60 Mg Capsule.dr 60 Mg PO DAILY Docusate Sodium 100 Mg Capsule 100 Mg PO DAILY Fish Oil Concentrate Softgel (Docosahexanoic Acid/Epa) 1 Each Capsule 1 Each PO DAILY Caltrate 600 + D Tablet (Calcium Carbonate/Vitamin D3) 1 Each Tablet 1 Each PO DAILY Vitals/I & O Vital Sign - Last 24 Hours 06/24/16 06/24/16 06/24/16 06/24/16 11:00 15:00 19:15 20:00 Temp 98.0 97.9 97.9 98.0 97.9 97.9 Pulse 60 82 55 Resp B/P 152/65 161/98 130/51 Pulse Ox 97 99 96 O2 Delivery Room Air Room Air Room Air Room Air 06/24/16 06/25/16 06/25/16 06/25/16 23:07 03:18 07:00 07:30 Temp 98.2 98.9 97.4 98.2 98.9 97.4 Pulse 50 57 63 Resp 16 B/P 140/60 156/65 146/64 Pulse Ox 96 100 97 O2 Delivery Room Air Room Air Room Air Room Air Intake and Output 06/24/16 06/24/16 06/25/16 15:00 23:00 07:00 Intake Total 0 ml Balance 0 ml MARTÍNEZ PRAKASH MD Jun 25, 2016 10:35
--- NOTE | 2016-06-25 10:42 | PDOC ---
Subjective: Subjective: Denies abd pain. 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 No other GI concerns. Vital Signs: Vital Signs Date Time Temp Pulse Resp B/P Pulse Ox O2 Delivery O2 Flow Rate FiO2 06/25/16 07:30 Room Air 06/25/16 07:00 97.4 63 16 146/64 97 97.4 Labs: Laboratory Tests Test 06/24/16 11:48 06/24/16 14:52 06/24/16 16:54 06/24/16 20:35 Glucose (Fingerstick) 245mg/dL 253mg/dL 207mg/dL Stool Occult Blood Positive Test 06/25/16 06:00 06/25/16 08:26 White Blood Count 10.8x10^3/uL Red Blood Count 3.96x10^6/uL Hemoglobin 11.9g/dL Hematocrit 36.8% Mean Corpuscular Volume 93fL Mean Corpuscular Hemoglobin 30pg Mean Corpuscular Hemoglobin Concent 32g/dL Red Cell Distribution Width 13.8% Platelet Count 293x10^3/uL Neutrophils (%) (Auto) 80% Lymphocytes (%) (Auto) 14% Monocytes (%) (Auto) 6% Eosinophils (%) (Auto) 0% Basophils (%) (Auto) 0% Neutrophils # (Auto) 8.6x10^3uL Lymphocytes # (Auto) 1.5x10^3/uL Monocytes # (Auto) 0.6x10^3/uL Eosinophils # (Auto) 0.0x10^3/uL Basophils # (Auto) 0.0x10^3/uL Sodium Level 141mmol/L Potassium Level 3.8mmol/L Chloride Level 105mmol/L Carbon Dioxide Level 25mmol/L Anion Gap 11 Blood Urea Nitrogen 23mg/dL Creatinine 0.6mg/dL Estimated GFR (Cockcroft-Gault) 95.7 Glucose Level 237mg/dL Calcium Level 8.4mg/dL Glucose (Fingerstick) 236mg/dL PE: GEN: NAD LUNGS: CTAB HEART: RRR ABD: S/ND/NT NEURO/PSYCH: asleep but awakens - keeps eyes closed, smiles, respond appropriately A/P: Encephalopathy, dysphagia -[employer] following, NPO on TPN -- Await [employer] follow-up, PEG discussion. OVI LAKHANI Jun 25, 2016 10:42
[2016-06-25 11:00] VITALS: BP 142/81
--- NOTE | 2016-06-25 11:01 | PDOC ---
PROGRESS NOTES Assessment Problems Medical Problems: (1) Fall Status: Acute (2) Fall (on) (from) other stairs and steps, initial encounter Status: Acute (3) Ribs, multiple fractures Status: Acute Metabolic encephalopathy. No sign of HSV encephalitis Dysphagia Prior dementia? Plan If swallow re-eval shows continued dysphagia, will repeat MRI, and recommend G.I. consult for PEG Subjective No complaints Objective Vital Signs Date Time Temp Pulse Resp B/P Pulse Ox O2 Delivery O2 Flow Rate FiO2 06/25/16 07:30 Room Air 06/25/16 07:00 97.4 63 16 146/64 97 97.4 Intake and Output 06/25/16 07:00 Intake Total 0 ml Balance 0 ml Intake Oral 0 ml # Voids 10 PHYSICAL EXAM Alert. Knows location, person, date PERRL. EOMI. CN: no focal findings. Muscle tone: normal. Muscle strength: 4/5 DTR: 1+ Plantar reflex: flexor Gait: not examined in bed. Sensory exam: no abnormal findings. No cerebellar signs elicited. Review of Relevant I have reviewed the following items quincy (where applicable) has been applied. Labs Laboratory Tests Test 06/23/16 11:40 06/23/16 16:54 06/23/16 20:57 06/24/16 07:36 Glucose (Fingerstick) 220mg/dL (70-99) 276mg/dL (70-99) 234mg/dL (70-99) 291mg/dL (70-99) Test 06/24/16 11:48 06/24/16 14:52 06/24/16 16:54 06/24/16 20:35 Glucose (Fingerstick) 245mg/dL (70-99) 253mg/dL (70-99) 207mg/dL (70-99) Stool Occult Blood Positive (NEG) Test 06/25/16 06:00 06/25/16 08:26 White Blood Count 10.8x10^3/uL (4.0-11.0) Red Blood Count 3.96x10^6/uL (3.50-5.40) Hemoglobin 11.9g/dL (12.0-15.5) Hematocrit 36.8% (36.0-47.0) Mean Corpuscular Volume 93fL (79-100) Mean Corpuscular Hemoglobin 30pg (25-35) Mean Corpuscular Hemoglobin Concent 32g/dL (31-37) Red Cell Distribution Width 13.8% (11.5-14.5) Platelet Count 293x10^3/uL (140-400) Neutrophils (%) (Auto) 80% (31-73) Lymphocytes (%) (Auto) 14% (24-48) Monocytes (%) (Auto) 6% (0-9) Eosinophils (%) (Auto) 0% (0-3) Basophils (%) (Auto) 0% (0-3) Neutrophils # (Auto) 8.6x10^3uL (1.8-7.7) Lymphocytes # (Auto) 1.5x10^3/uL (1.0-4.8) Monocytes # (Auto) 0.6x10^3/uL (0.0-1.1) Eosinophils # (Auto) 0.0x10^3/uL (0.0-0.7) Basophils # (Auto) 0.0x10^3/uL (0.0-0.2) Sodium Level 141mmol/L (136-145) Potassium Level 3.8mmol/L (3.5-5.1) Chloride Level 105mmol/L (98-107) Carbon Dioxide Level 25mmol/L (21-32) Anion Gap 11 (6-14) Blood Urea Nitrogen 23mg/dL (7-20) Creatinine 0.6mg/dL (0.6-1.0) Estimated GFR (Cockcroft-Gault) 95.7 Glucose Level 237mg/dL (70-99) Calcium Level 8.4mg/dL (8.5-10.1) Glucose (Fingerstick) 236mg/dL (70-99) Laboratory Tests Test 06/24/16 11:48 06/24/16 14:52 06/24/16 16:54 06/24/16 20:35 Glucose (Fingerstick) 245mg/dL (70-99) 253mg/dL (70-99) 207mg/dL (70-99) Stool Occult Blood Positive (NEG) Test 06/25/16 06:00 06/25/16 08:26 White Blood Count 10.8x10^3/uL (4.0-11.0) Red Blood Count 3.96x10^6/uL (3.50-5.40) Hemoglobin 11.9g/dL (12.0-15.5) Hematocrit 36.8% (36.0-47.0) Mean Corpuscular Volume 93fL (79-100) Mean Corpuscular Hemoglobin 30pg (25-35) Mean Corpuscular Hemoglobin Concent 32g/dL (31-37) Red Cell Distribution Width 13.8% (11.5-14.5) Platelet Count 293x10^3/uL (140-400) Neutrophils (%) (Auto) 80% (31-73) Lymphocytes (%) (Auto) 14% (24-48) Monocytes (%) (Auto) 6% (0-9) Eosinophils (%) (Auto) 0% (0-3) Basophils (%) (Auto) 0% (0-3) Neutrophils # (Auto) 8.6x10^3uL (1.8-7.7) Lymphocytes # (Auto) 1.5x10^3/uL (1.0-4.8) Monocytes # (Auto) 0.6x10^3/uL (0.0-1.1) Eosinophils # (Auto) 0.0x10^3/uL (0.0-0.7) Basophils # (Auto) 0.0x10^3/uL (0.0-0.2) Sodium Level 141mmol/L (136-145) Potassium Level 3.8mmol/L (3.5-5.1) Chloride Level 105mmol/L (98-107) Carbon Dioxide Level 25mmol/L (21-32) Anion Gap 11 (6-14) Blood Urea Nitrogen 23mg/dL (7-20) Creatinine 0.6mg/dL (0.6-1.0) Estimated GFR (Cockcroft-Gault) 95.7 Glucose Level 237mg/dL (70-99) Calcium Level 8.4mg/dL (8.5-10.1) Glucose (Fingerstick) 236mg/dL (70-99) Microbiology 06/10/16 Blood Culture - Final, Complete NO GROWTH AFTER 5 DAYS 06/11/16 Gram Stain - Final, Complete 06/08/16 Urine Culture - Final, Complete 06/08/16 Urine Culture Result 1 (ALEJO) - Final, Complete Medications Current Medications Lidocaine (Lidoderm) 1 patch 1X ONCE TD Last administered on 06/08/16 09:12; Start 06/08/16 at 09:00; Stop 06/08/16 at 09:01; Status DC Acetaminophen (Tylenol) 1,000 mg 1X ONCE PO Last administered on 06/08/16 09: 12; Start 06/08/16 at 09:00; Stop 06/08/16 at 09:01; Status DC Oxycodone/ Acetaminophen (Percocet 5/325) 1 tab 1X ONCE PO Last administered on 06/08/16 10:00; Start 06/08/16 at 10:00; Stop 06/08/16 at 10:01; Status DC Ondansetron HCl (Zofran) 4 mg PRN Q6HRS PRN IV NAUSEA/VOMITING; Start 06/08/16 at 12:00; Stop 06/12/16 at 09:19; Status DC Al Hydrox/Mg Hydrox/Simethicone (Mylanta Plus Xs) 30 ml PRN Q3HRS PRN PO HEARTBURN / GAS; Start 06/08/16 at 12:00; Stop 06/12/16 at 09:19; Status DC Calcium Carbonate/ Glycine (Tums) 500 mg PRN Q3HRS PRN PO UPSET STOMACH; Start 06/08/16 at 12:00; Stop 06/12/16 at 09:19; Status DC Oxycodone HCl (Roxicodone) 5 mg PRN Q3HRS PRN PO BREAKTHROUGH PAIN; Start at 12:00; Stop 06/12/16 at 09:19; Status DC Morphine Sulfate 1 mg PRN Q2HR PRN IV PAIN; Start 06/08/16 at 12:00; Stop at 09:19; Status DC Oxycodone/ Acetaminophen (Percocet 5/325) 1 tab PRN Q4HRS PRN PO MILD PAIN, 1ST CHOICE Last administered on 06/09/16 15:03; Start 06/08/16 at 12:00; Stop 06/12/16 at 09:19; Status DC Docusate Sodium (Colace) 100 mg BID PO ; Start 06/08/16 at 21:00; Status Cancel Magnesium Hydroxide (Milk Of Magnesia) 2,400 mg PRN Q12HR PRN PO CONSTIPATION; Start 06/08/16 at 12:00; Stop 06/12/16 at 09:19; Status DC Lactulose 20 gm PRN Q12HR PRN PO CONSTIPATION; Start 06/08/16 at 12:00; Stop 06/12/16 at 09:19; Status DC Bisacodyl (Dulcolax Supp) 10 mg PRN DAILY PRN IN CONSTIPATION; Start 06/08/16 at 12:00; Stop 06/12/16 at 09:19; Status DC Enoxaparin Sodium (Lovenox 40mg Syringe) 40 mg DAILY16 SQ Last administered on 06/09/16 15:03; Start 06/08/16 at 16:00; Stop 06/10/16 at 12:52; Status DC Lidocaine (Lidoderm) 1 patch DAILY TD Last administered on 06/25/16 09:12; Start 06/08/16 at 13:00 Aspirin (Children'S Aspirin) 81 mg DAILYWBKFT PO Last administered on 06/09/16 07:41; Start 06/08/16 at 13:00 Docusate Sodium (Colace) 100 mg DAILY PO Last administered on 06/09/16 09:00; Start 06/09/16 at 09:00 Fluticasone Propionate (Flonase) 2 spray DAILY NS Last administered on 09:12; Start 06/08/16 at 13:00 Glipizide (Glucotrol Er) 10 mg DAILY08 PO Last administered on 06/09/16 07:38; Start 06/08/16 at 13:00 Lisinopril (Prinivil) 5 mg DAILY PO Last administered on 06/09/16 07:39; Start 06/08/16 at 13:00 Calcium/Vitamin D (Oscal D 500mg/ 200uts) 1 tab DAILY PO Last administered on 07:39; Start 06/08/16 at 13:00 Fish Oil (Fish Oil) 1,000 mg DAILY PO Last administered on 06/09/16 07:38; Start 06/08/16 at 13:00 Duloxetine HCl (Cymbalta) 60 mg DAILY PO Last administered on 06/09/16 07:40; Start 06/08/16 at 13:00 Famotidine (Pepcid) 40 mg DAILY PO Last administered on 06/09/16 07:40; Start 06/08/16 at 13:00; Stop 06/10/16 at 11:55; Status DC Multivitamins/ Calcium (Thera M Plus) 1 tab DAILY PO Last administered on 07:39; Start 06/08/16 at 13:00 Atorvastatin Calcium (Lipitor) 20 mg QHS PO Last administered on 06/08/16 20:56 ; Start 06/08/16 at 21:00 Insulin Aspart (Novolog) 0-9 UNITS TIDWMEALS SQ Last administered on 06/13/16 17:49; Start 06/08/16 at 12:30; Stop 06/13/16 at 20:54; Status DC Dextrose 12.5 gm PRN Q15MIN PRN IV SEE COMMENTS; Start 06/08/16 at 12:15 Ondansetron HCl 4 mg 4 mg PRN Q8HRS PRN IV NAUSEA/VOMITING; Start 06/08/16 at 12 :45; Stop 06/09/16 at 12:44; Status DC Piperacillin Sod/ Tazobactam Sod/ Sodium Chloride (Zosyn/Iv Sodium Chloride 0.9 % 50ml) 50 ml @ 100 mls/hr Q6HRS IV Last administered on 06/17/16 12:28; Start 06/10/16 at 12:00; Stop 06/17/16 at 13:13; Status DC Pantoprazole Sodium 40 mg 40 mg DAILYAC IVP Last administered on 06/25/16 09: 12; Start 06/10/16 at 11:00 Amino Acids/ Electrolytes/ Dextrose 1,000 ml @ 75 mls/hr [id number] PRN IV . Last administered on 06/14/16 20:34; Start 06/10/16 at 11:00; Stop 06/15/16 at 21:59; Status DC Sodium Chloride (Iv Sodium Chloride 0.9% 1000ml Bag) 1,000 ml @ 50 mls/hr Q20H IV Last administered on 06/24/16 05:04; Start 06/10/16 at 11:00; Stop 06/24/16 at 14:37; Status DC Naloxone HCl (Narcan) 0.4 mg PRN Q2MIN PRN IV SEE COMMENTS; Start 06/10/16 at 11 :30 Naloxone HCl 0.4 mg 0.4 mg 1X ONCE IV Last administered on 06/10/16 12:07; Start 06/10/16 at 12:00; Stop 06/10/16 at 12:01; Status DC Daptomycin 500 mg/ Sodium Chloride 50 ml @ 100 mls/hr Q24H IV Last administered on 06/10/16 14:56; Start 06/10/16 at 14:00; Stop 06/10/16 at 18:00; Status DC Metronidazole (FLAGYL 500Mmg PREMIX) 100 ml @ 100 mls/hr Q8H IV Last administered on 06/12/16 08:08; Start 06/10/16 at 16:00; Stop 06/12/16 at 09:07; Status DC Lorazepam (Ativan) 1 mg PRN Q4HRS PRN IV ANXIETY / AGITATION Last administered on 06/10/16 17:28; Start 06/10/16 at 17:00; Stop 06/12/16 at 09:19; Status DC Flumazenil 0.1 mg 0.1 mg 1X ONCE IV Last administered on 06/11/16 15:15; Start 06/11/16 at 14:30; Stop 06/11/16 at 14:33; Status DC Acyclovir Sodium/ Dextrose (Zovirax) 262.4 ml @ 262.4 mls/ hr Q8HRS IV Last administered on 06/17/16 05:10; Start 06/13/16 at 09:00; Stop 06/17/16 at 13:13 ; Status DC Alteplase, Recombinant (Cathflo) 2 mg 1X ONCE INT CAT Last administered on 06/13 16:14; Start 06/13/16 at 15:00; Stop 06/13/16 at 15:01; Status DC Insulin Aspart (Novolog) 0-9 UNITS QIDACHS SQ Last administered on 06/22/16 12 :20; Start 06/13/16 at 21:00; Stop 06/22/16 at 13:37; Status DC Info 1 each 1 each PRN DAILY PRN MC SEE COMMENTS Last administered on 14:18; Start 06/15/16 at 11:00 Sodium Chloride/ Potassium Chloride/ Potassium Phosphate/ Magnesium Sulfate/ Calcium Gluconate/ Multivitamins/ Chromium/Copper/ Manganese/Seleni/ Zn/Total Parenteral Nutrition/Amino Acids/Dextrose/ Fat Emulsion Intravenous (Sodium Chloride/ Potassium Phospha... 1,512 ml @ 63 mls/hr TPN CONT IV Last administered on 06/15/16 21:21; Start 06/15/16 at 22:00; Stop 06/16/16 at 21:59 ; Status DC Saliva Substitute 2 spray 2 spray PRN Q15MIN PRN PO DRY MOUTH; Start 06/16/16 at 11:15 Sodium Chloride/ Potassium Chloride/ Potassium Phosphate/ Magnesium Sulfate/ Calcium Gluconate/ Multivitamins/ Chromium/Copper/ Manganese/Seleni/ Zn/Total Parenteral Nutrition/Amino Acids/Dextrose/ Fat Emulsion Intravenous (Sodium Chloride/ Potassium Phospha... 1,512 ml @ 63 mls/hr TPN CONT IV Last administered on 06/16/16 22:11; Start 06/16/16 at 22:00; Stop 06/17/16 at 21:59 ; Status DC Insulin Detemir (Levemir) 8 units 1X ONCE SQ ; Start 06/16/16 at 15:00; Stop at 15:00; Status DC Insulin Detemir 12 units 12 units 1X ONCE SQ Last administered on 06/16/16 16 :31; Start 06/16/16 at 15:30; Stop 06/16/16 at 15:31; Status DC Sodium Chloride/ Potassium Chloride/ Potassium Phosphate/ Magnesium Sulfate/ Calcium Gluconate/ Multivitamins/ Chromium/Copper/ Manganese/Seleni/ Zn/Total Parenteral Nutrition/Amino Acids/Dextrose/ Fat Emulsion Intravenous (Sodium Chloride/ Potassium Phospha... 1,512 ml @ 63 mls/hr TPN CONT IV Last administered on 06/17/16 22:01; Start 06/17/16 at 22:00; Stop 06/18/16 at 21:59 ; Status DC Methylprednisolone Sodium Succinate 125 mg 125 mg 1X ONCE IV Last administered on 06/18/16 10:53; Start 06/18/16 at 09:45; Stop 06/18/16 at 09:46 ; Status DC Sodium Chloride 90 meq/Potassium Chloride 40 meq/ Potassium Phosphate 13.6 mmol/ Magnesium Sulfate 10 meq/ Calcium Gluconate 5 meq/ Multivitamins 10 ml/Chromium / Copper/Manganese/ Seleni/Zn 1 ml/ Total Parenteral Nutrition/Amino Acids/ Dextrose/ Fat Emulsion Intravenous 1,512 ml @ 63 mls/hr TPN CONT IV Last administered on 06/18/16 21:16; Start 06/18/16 at 22:00; Stop 06/19/16 at 21:59 ; Status DC Sodium Chloride/ Potassium Chloride/ Potassium Phosphate/ Magnesium Sulfate/ Calcium Gluconate/ Multivitamins/ Chromium/Copper/ Manganese/Seleni/ Zn/Total Parenteral Nutrition/Amino Acids/Dextrose/ Fat Emulsion Intravenous (Sodium Chloride/ Potassium Phospha... 1,512 ml @ 63 mls/hr TPN CONT IV Last administered on 06/19/16 20:42; Start 06/19/16 at 22:00; Stop 06/20/16 at 21:59 ; Status DC Methylprednisolone Sodium Succinate (Solu-Medrol 40mg Vial) 40 mg Q8HRS IV Last administered on 06/22/16 06:02; Start 06/19/16 at 14:00; Stop 06/22/16 at 13:13; Status DC Barium Sulfate 148 gm 148 gm 1X ONCE PO Last administered on 06/19/16 11:30; Start 06/19/16 at 11:30; Stop 06/19/16 at 11:32; Status DC Sodium Chloride/ Potassium Phosphate/ Magnesium Sulfate/ Calcium Gluconate/ Multivitamins/ Chromium/Copper/ Manganese/Seleni/ Zn/Total Parenteral Nutrition/ Amino Acids/Dextrose/ Fat Emulsion Intravenous (Sodium Chloride/ Potassium Phosphate/ Infuvite Adult/ Multitrace-5 Co... 1,512 ml @ 63 mls/hr TPN CONT IV Last administered on 06/20/16 21:57; Start 06/20/16 at 22:00; Stop at 21:59; Status DC Insulin Detemir 12 units 12 units QHS SQ Last administered on 06/20/16 22:01; Start 06/20/16 at 21:00; Stop 06/21/16 at 20:10; Status DC Sodium Chloride/ Potassium Phosphate/ Magnesium Sulfate/ Calcium Gluconate/ Multivitamins/ Chromium/Copper/ Manganese/Seleni/ Zn/Insulin Human Regular/ Total Parenteral Nutrition/Amino Acids/Dextrose/ Fat Emulsion Intravenous ( Sodium Chloride/ Potassium Phosphate/ Infuvite Sam... 1,512 ml @ 63 mls/hr TPN CONT IV Last administered on 06/21/16 21:22; Start 06/21/16 at 22:00; Stop 06/22/16 at 21:59; Status DC Insulin Detemir 20 units 20 units QHS SQ Last administered on 06/23/16 21:18; Start 06/21/16 at 21:00; Stop 06/24/16 at 14:37; Status DC Sodium Chloride/ Potassium Phosphate/ Magnesium Sulfate/ Calcium Gluconate/ Multivitamins/ Chromium/Copper/ Manganese/Seleni/ Zn/Insulin Human Regular/ Total Parenteral Nutrition/Amino Acids/Dextrose/ Fat Emulsion Intravenous ( Sodium Chloride/ Potassium Phosphate/ Infuvite Sam... 1,512 ml @ 63 mls/hr TPN CONT IV Last administered on 06/22/16 20:32; Start 06/22/16 at 22:00; Stop 06/23/16 at 21:59; Status DC Methylprednisolone Sodium Succinate (Solu-Medrol 40mg Vial) 40 mg Q12HR IV Last administered on 06/23/16 08:46; Start 06/22/16 at 21:00; Stop 06/23/16 at 16:47; Status DC Methylprednisolone Sodium Succinate (Solu-Medrol 40mg Vial) 20 mg Q12HR IV ; Start 06/25/16 at 09:00; Stop 06/25/16 at 09:00; Status DC Insulin Aspart (Novolog) 0-12 UNITS QIDACHS SQ Last administered on 06/25/16 09:24; Start 06/22/16 at 16:30 Alteplase, Recombinant 2 mg 2 mg 1X ONCE INT CAT Last administered on 08:49; Start 06/23/16 at 07:00; Stop 06/23/16 at 07:01; Status DC Sodium Chloride/ Potassium Phosphate/ Magnesium Sulfate/ Calcium Gluconate/ Multivitamins/ Chromium/Copper/ Manganese/Seleni/ Zn/Insulin Human Regular/ Total Parenteral Nutrition/Amino Acids/Dextrose/ Fat Emulsion Intravenous ( Sodium Chloride/ Potassium Phosphate/ Infuvite Sam... 1,512 ml @ 63 mls/hr TPN CONT IV Last administered on 06/23/16 21:19; Start 06/23/16 at 22:00; Stop 06/24/16 at 21:59; Status DC Methylprednisolone Sodium Succinate (Solu-Medrol 40mg Vial) 40 mg Q12HR IV Last administered on 06/23/16 21:11; Start 06/23/16 at 21:00; Stop 06/23/16 at 23:00; Status DC Methylprednisolone Sodium Succinate (Solu-Medrol 40mg Vial) 20 mg Q12HR IV Last administered on 06/24/16 22:05; Start 06/24/16 at 09:00; Stop 06/24/16 at 21:01; Status DC Methylprednisolone Sodium Succinate (Solu-Medrol 40mg Vial) 20 mg 1X ONCE IV Last administered on 06/25/16 09:13; Start 06/25/16 at 09:00; Stop 06/25/16 at 09:01; Status DC Methylprednisolone Sodium Succinate 10 mg 10 mg 1X ONCE IV ; Start 06/26/16 at 09:00; Stop 06/26/16 at 09:01 Sodium Chloride/ Potassium Phosphate/ Magnesium Sulfate/ Calcium Gluconate/ Multivitamins/ Chromium/Copper/ Manganese/Seleni/ Zn/Insulin Human Regular/ Total Parenteral Nutrition/Amino Acids/Dextrose/ Fat Emulsion Intravenous ( Sodium Chloride/ Potassium Phosphate/ Infuvite Sam... 1,512 ml @ 63 mls/hr TPN CONT IV Last administered on 06/24/16 22:10; Start 06/24/16 at 22:00; Stop 06/25/16 at 21:59 Insulin Detemir (Levemir) 25 units QHS SQ Last administered on 06/24/16 22:09 ; Start 06/24/16 at 21:00 Active Scripts Active Ciprofloxacin 250 Mg/5 Ml Christina.mc.rec 250 Mg PO BID Children's Aspirin (Aspirin) 81 Mg Tab.chew 81 Mg PO DAILYWBKFT 30 Days Glipizide Er (Glipizide) 5 Mg Tab.er.24 10 Mg PO DAILY Reported Pravachol (Pravastatin Sodium) 80 Mg Tablet 80 Mg PO DAILY Multi-Vitamin Daily (Multivitamin) 1 Each Tablet 1 Each PO DAILY Lisinopril 5 Mg Tablet 5 Mg PO DAILY Flonase (Fluticasone Propionate) 16 Gm [place].susp 2 [place] NS DAILY Famotidine 40 Mg Tablet 40 Mg PO DAILY Cymbalta (Duloxetine Hcl) 60 Mg Capsule. 60 Mg PO DAILY Docusate Sodium 100 Mg Capsule 100 Mg PO DAILY Fish Oil Concentrate Softgel (Docosahexanoic Acid/Epa) 1 Each Capsule 1 Each PO DAILY Caltrate 600 + D Tablet (Calcium Carbonate/Vitamin D3) 1 Each Tablet 1 Each PO DAILY Vitals/I & O Vital Sign - Last 24 Hours 06/24/16 06/24/16 06/24/16 06/24/16 11:00 15:00 19:15 20:00 Temp 98.0 97.9 97.9 98.0 97.9 97.9 Pulse 60 82 55 Resp B/P 152/65 161/98 130/51 Pulse Ox 97 99 96 O2 Delivery Room Air Room Air Room Air Room Air 06/24/16 06/25/16 06/25/16 06/25/16 23:07 03:18 07:00 07:30 Temp 98.2 98.9 97.4 98.2 98.9 97.4 Pulse 50 57 63 Resp B/P 140/60 156/65 146/64 Pulse Ox 96 100 97 O2 Delivery Room Air Room Air Room Air Room Air Intake and Output 06/24/16 06/24/16 06/25/16 15:00 23:00 07:00 Intake Total 0 ml Balance 0 ml YOSVANY JENSEN MD Jun 25, 2016 11:01
[2016-06-25 11:51] LABS: MAGNESIUM 1.8 mg/dL (1.8-2.4); PHOSPHORUS 2.9 mg/dL (2.6-4.7)
[2016-06-25] MEDS: TPN PER PHARMACY MC PRN (12:46)
[2016-06-25 15:00] VITALS: BP 152/51
[2016-06-25 19:20] VITALS: BP 135/71
[2016-06-25] MEDS: ATORVASTATIN CALCIUM 20 MG TABLET PO SCH (21:00)
[2016-06-25] MEDS ORDERED: TOTAL PARENTERAL NUTRITION IV SCH ×10 (22:00)
[2016-06-25] MEDS ORDERED: DEXTROSE 70% IV SCH ×10 (22:00)
[2016-06-25] MEDS ORDERED: [UNRECOGNIZED DRUG - OTHER] IV SCH ×10 (22:00)
[2016-06-25] MEDS ORDERED: AMINO ACIDS IV SCH ×10 (22:00)
[2016-06-25] MEDS: INSULIN DETEMIR 300 UNITS/3 ML INSULN.PEN. SQ SCH (22:20)
[2016-06-25 23:04] VITALS: BP 130/68
[2016-06-26 03:26] VITALS: BP 148/51
[2016-06-26 07:00] VITALS: BP 135/51
[2016-06-26] MEDS: INSULIN ASPART 300 UNITS/3 ML INSULN.PEN SQ SCH ×4 (07:27→21:35)
[2016-06-26] MEDS: ASPIRIN 81 MG TAB.CHEW PO SCH (08:00)
[2016-06-26] MEDS: GLIPIZIDE ER 5 MG TAB.ER.24 PO SCH (08:00)
[2016-06-26] MEDS: FLUTICASONE 50MCG/NASAL SPRAY 16GM BOTTLE. NS SCH (08:51)
[2016-06-26] MEDS: PANTOPRAZOLE IV PUSH 40 MG VIAL. IVP SCH (08:52)
[2016-06-26] MEDS: LIDOCAINE (700MG/PATCH) PATCH. TD SCH (08:55)
[2016-06-26] MEDS: LISINOPRIL 5 MG TABLET. PO SCH (09:00)
[2016-06-26] MEDS: CALCIUM CARB/VIT D3 500/200 TABLET PO SCH (09:00)
[2016-06-26] MEDS: DULOXETINE HCL 30 MG CAPSULE.DR. PO SCH (09:00)
[2016-06-26] MEDS ORDERED: methylPREDNISolone SOD SUCC PF 40 MG/ML VIAL. IV ONE (09:00)
[2016-06-26] MEDS: DOCUSATE SODIUM 100 MG CAPSULE PO SCH (09:00)
[2016-06-26] MEDS: MULTIVITAMIN with MINERAL TABLET. PO SCH (09:00)
[2016-06-26] MEDS: OMEGA-3 FATTY ACIDS/FISH OIL 1,000 MG CAPSULE. PO SCH (09:00)
--- NOTE | 2016-06-26 10:32 | PDOC ---
PROGRESS NOTES Assessment Problems Medical Problems: (1) Fall Status: Acute (2) Fall (on) (from) other stairs and steps, initial encounter Status: Acute (3) Ribs, multiple fractures Status: Acute Metabolic encephalopathy. No sign of HSV encephalitis Dysphagia Prior dementia? Plan Repeat MRI, Likely needs PEG, awaiting repeat video swallow study Subjective No complaints Objective Vital Signs Date Time Temp Pulse Resp B/P Pulse Ox O2 Delivery O2 Flow Rate FiO2 06/26/16 07:00 97.8 51 16 135/51 99 Room Air 97.8 Intake and Output 06/26/16 07:00 Intake Total 1944 ml Balance 1944 ml Intake Oral 0 ml IV Total 1944 ml # Voids 4 # Bowel Movements 1 PHYSICAL EXAM Alert. Knows location, person, date PERRL. EOMI. CN: no focal findings. Muscle tone: normal. Muscle strength: 4/5 No evidence of fatiguability such as from a neuromuscular junction disease DTR: 1+ Plantar reflex: flexor Gait: not examined in bed. Sensory exam: no abnormal findings. No cerebellar signs elicited. Review of Relevant I have reviewed the following items quincy (where applicable) has been applied. Labs Laboratory Tests Test 06/24/16 11:48 06/24/16 14:52 06/24/16 16:54 06/24/16 20:35 Glucose (Fingerstick) 245mg/dL (70-99) 253mg/dL (70-99) 207mg/dL (70-99) Stool Occult Blood Positive (NEG) Test 06/25/16 06:00 06/25/16 08:26 06/25/16 12:12 06/25/16 16:01 White Blood Count 10.8x10^3/uL (4.0-11.0) Red Blood Count 3.96x10^6/uL (3.50-5.40) Hemoglobin 11.9g/dL (12.0-15.5) Hematocrit 36.8% (36.0-47.0) Mean Corpuscular Volume 93fL (79-100) Mean Corpuscular Hemoglobin 30pg (25-35) Mean Corpuscular Hemoglobin Concent 32g/dL (31-37) Red Cell Distribution Width 13.8% (11.5-14.5) Platelet Count 293x10^3/uL (140-400) Neutrophils (%) (Auto) 80% (31-73) Lymphocytes (%) (Auto) 14% (24-48) Monocytes (%) (Auto) 6% (0-9) Eosinophils (%) (Auto) 0% (0-3) Basophils (%) (Auto) 0% (0-3) Neutrophils # (Auto) 8.6x10^3uL (1.8-7.7) Lymphocytes # (Auto) 1.5x10^3/uL (1.0-4.8) Monocytes # (Auto) 0.6x10^3/uL (0.0-1.1) Eosinophils # (Auto) 0.0x10^3/uL (0.0-0.7) Basophils # (Auto) 0.0x10^3/uL (0.0-0.2) Sodium Level 141mmol/L (136-145) Potassium Level 3.8mmol/L (3.5-5.1) Chloride Level 105mmol/L (98-107) Carbon Dioxide Level 25mmol/L (21-32) Anion Gap 11 (6-14) Blood Urea Nitrogen 23mg/dL (7-20) Creatinine 0.6mg/dL (0.6-1.0) Estimated GFR (Cockcroft-Gault) 95.7 Glucose Level 237mg/dL (70-99) Calcium Level 8.4mg/dL (8.5-10.1) Phosphorus Level 2.9mg/dL (2.6-4.7) Magnesium Level 1.8mg/dL (1.8-2.4) Glucose (Fingerstick) 236mg/dL (70-99) 214mg/dL (70-99) 250mg/dL (70-99) Test 06/25/16 21:08 06/26/16 07:24 Glucose (Fingerstick) 202mg/dL (70-99) 131mg/dL (70-99) Laboratory Tests Test 06/25/16 12:12 06/25/16 16:01 06/25/16 21:08 06/26/16 07:24 Glucose (Fingerstick) 214mg/dL (70-99) 250mg/dL (70-99) 202mg/dL (70-99) 131mg/dL (70-99) Microbiology 06/10/16 Blood Culture - Final, Complete NO GROWTH AFTER 5 DAYS 06/11/16 Gram Stain - Final, Complete 06/08/16 Urine Culture - Final, Complete 06/08/16 Urine Culture Result 1 (ALEJO) - Final, Complete Medications Current Medications Lidocaine (Lidoderm) 1 patch 1X ONCE TD Last administered on 06/08/16 09:12; Start 06/08/16 at 09:00; Stop 06/08/16 at 09:01; Status DC Acetaminophen (Tylenol) 1,000 mg 1X ONCE PO Last administered on 06/08/16 09: 12; Start 06/08/16 at 09:00; Stop 06/08/16 at 09:01; Status DC Oxycodone/ Acetaminophen (Percocet 5/325) 1 tab 1X ONCE PO Last administered on 06/08/16 10:00; Start 06/08/16 at 10:00; Stop 06/08/16 at 10:01; Status DC Ondansetron HCl (Zofran) 4 mg PRN Q6HRS PRN IV NAUSEA/VOMITING; Start 06/08/16 at 12:00; Stop 06/12/16 at 09:19; Status DC Al Hydrox/Mg Hydrox/Simethicone (Mylanta Plus Xs) 30 ml PRN Q3HRS PRN PO HEARTBURN / GAS; Start 06/08/16 at 12:00; Stop 06/12/16 at 09:19; Status DC Calcium Carbonate/ Glycine (Tums) 500 mg PRN Q3HRS PRN PO UPSET STOMACH; Start 06/08/16 at 12:00; Stop 06/12/16 at 09:19; Status DC Oxycodone HCl (Roxicodone) 5 mg PRN Q3HRS PRN PO BREAKTHROUGH PAIN; Start at 12:00; Stop 06/12/16 at 09:19; Status DC Morphine Sulfate 1 mg PRN Q2HR PRN IV PAIN; Start 06/08/16 at 12:00; Stop at 09:19; Status DC Oxycodone/ Acetaminophen (Percocet 5/325) 1 tab PRN Q4HRS PRN PO MILD PAIN, 1ST CHOICE Last administered on 06/09/16 15:03; Start 06/08/16 at 12:00; Stop 06/12/16 at 09:19; Status DC Docusate Sodium (Colace) 100 mg BID PO ; Start 06/08/16 at 21:00; Status Cancel Magnesium Hydroxide (Milk Of Magnesia) 2,400 mg PRN Q12HR PRN PO CONSTIPATION; Start 06/08/16 at 12:00; Stop 06/12/16 at 09:19; Status DC Lactulose 20 gm PRN Q12HR PRN PO CONSTIPATION; Start 06/08/16 at 12:00; Stop 06/12/16 at 09:19; Status DC Bisacodyl (Dulcolax Supp) 10 mg PRN DAILY PRN [place] CONSTIPATION; Start 06/08/16 at 12:00; Stop 06/12/16 at 09:19; Status DC Enoxaparin Sodium (Lovenox 40mg Syringe) 40 mg DAILY16 SQ Last administered on 06/09/16 15:03; Start 06/08/16 at 16:00; Stop 06/10/16 at 12:52; Status DC Lidocaine (Lidoderm) 1 patch DAILY TD Last administered on 06/26/16 08:55; Start 06/08/16 at 13:00 Aspirin (Children'S Aspirin) 81 mg DAILYWBKFT PO Last administered on 06/09/16 07:41; Start 06/08/16 at 13:00 Docusate Sodium (Colace) 100 mg DAILY PO Last administered on 06/09/16 09:00; Start 06/09/16 at 09:00 Fluticasone Propionate (Flonase) 2 spray DAILY NS Last administered on 08:51; Start 06/08/16 at 13:00 Glipizide (Glucotrol Er) 10 mg DAILY08 PO Last administered on 06/09/16 07:38; Start 06/08/16 at 13:00 Lisinopril (Prinivil) 5 mg DAILY PO Last administered on 06/09/16 07:39; Start 06/08/16 at 13:00 Calcium/Vitamin D (Oscal D 500mg/ 200uts) 1 tab DAILY PO Last administered on 07:39; Start 06/08/16 at 13:00 Fish Oil (Fish Oil) 1,000 mg DAILY PO Last administered on 06/09/16 07:38; Start 06/08/16 at 13:00 Duloxetine HCl (Cymbalta) 60 mg DAILY PO Last administered on 06/09/16 07:40; Start 06/08/16 at 13:00 Famotidine (Pepcid) 40 mg DAILY PO Last administered on 06/09/16 07:40; Start 06/08/16 at 13:00; Stop 06/10/16 at 11:55; Status DC Multivitamins/ Calcium (Thera M Plus) 1 tab DAILY PO Last administered on 07:39; Start 06/08/16 at 13:00 Atorvastatin Calcium (Lipitor) 20 mg QHS PO Last administered on 06/08/16 20:56 ; Start 06/08/16 at 21:00 Insulin Aspart (Novolog) 0-9 UNITS TIDWMEALS SQ Last administered on 06/13/16 17:49; Start 06/08/16 at 12:30; Stop 06/13/16 at 20:54; Status DC Dextrose 12.5 gm PRN Q15MIN PRN IV SEE COMMENTS; Start 06/08/16 at 12:15 Ondansetron HCl 4 mg 4 mg PRN Q8HRS PRN IV NAUSEA/VOMITING; Start 06/08/16 at 12 :45; Stop 06/09/16 at 12:44; Status DC Piperacillin Sod/ Tazobactam Sod/ Sodium Chloride (Zosyn/Iv Sodium Chloride 0.9 % 50ml) 50 ml @ 100 mls/hr Q6HRS IV Last administered on 06/17/16 12:28; Start 06/10/16 at 12:00; Stop 06/17/16 at 13:13; Status DC Pantoprazole Sodium 40 mg 40 mg DAILYAC IVP Last administered on 06/26/16 08: 52; Start 06/10/16 at 11:00 Amino Acids/ Electrolytes/ Dextrose 1,000 ml @ 75 mls/hr [id number] PRN IV . Last administered on 06/14/16 20:34; Start 06/10/16 at 11:00; Stop 06/15/16 at 21:59; Status DC Sodium Chloride (Iv Sodium Chloride 0.9% 1000ml Bag) 1,000 ml @ 50 mls/hr Q20H IV Last administered on 06/24/16 05:04; Start 06/10/16 at 11:00; Stop 06/24/16 at 14:37; Status DC Naloxone HCl (Narcan) 0.4 mg PRN Q2MIN PRN IV SEE COMMENTS; Start 06/10/16 at 11 :30 Naloxone HCl 0.4 mg 0.4 mg 1X ONCE IV Last administered on 06/10/16 12:07; Start 06/10/16 at 12:00; Stop 06/10/16 at 12:01; Status DC Daptomycin 500 mg/ Sodium Chloride 50 ml @ 100 mls/hr Q24H IV Last administered on 06/10/16 14:56; Start 06/10/16 at 14:00; Stop 06/10/16 at 18:00; Status DC Metronidazole (FLAGYL 500Mmg PREMIX) 100 ml @ 100 mls/hr Q8H IV Last administered on 06/12/16 08:08; Start 06/10/16 at 16:00; Stop 06/12/16 at 09:07; Status DC Lorazepam (Ativan) 1 mg PRN Q4HRS PRN IV ANXIETY / AGITATION Last administered on 06/10/16 17:28; Start 06/10/16 at 17:00; Stop 06/12/16 at 09:19; Status DC Flumazenil 0.1 mg 0.1 mg 1X ONCE IV Last administered on 06/11/16 15:15; Start 06/11/16 at 14:30; Stop 06/11/16 at 14:33; Status DC Acyclovir Sodium/ Dextrose (Zovirax) 262.4 ml @ 262.4 mls/ hr Q8HRS IV Last administered on 06/17/16 05:10; Start 06/13/16 at 09:00; Stop 06/17/16 at 13:13 ; Status DC Alteplase, Recombinant (Cathflo) 2 mg 1X ONCE INT CAT Last administered on 06/13 16:14; Start 06/13/16 at 15:00; Stop 06/13/16 at 15:01; Status DC Insulin Aspart (Novolog) 0-9 UNITS QIDACHS SQ Last administered on 06/22/16 12 :20; Start 06/13/16 at 21:00; Stop 06/22/16 at 13:37; Status DC Info 1 each 1 each PRN DAILY PRN MC SEE COMMENTS Last administered on 12:46; Start 06/15/16 at 11:00 Sodium Chloride/ Potassium Chloride/ Potassium Phosphate/ Magnesium Sulfate/ Calcium Gluconate/ Multivitamins/ Chromium/Copper/ Manganese/Seleni/ Zn/Total Parenteral Nutrition/Amino Acids/Dextrose/ Fat Emulsion Intravenous (Sodium Chloride/ Potassium Phospha... 1,512 ml @ 63 mls/hr TPN CONT IV Last administered on 06/15/16 21:21; Start 06/15/16 at 22:00; Stop 06/16/16 at 21:59 ; Status DC Saliva Substitute 2 spray 2 spray PRN Q15MIN PRN PO DRY MOUTH; Start 06/16/16 at 11:15 Sodium Chloride/ Potassium Chloride/ Potassium Phosphate/ Magnesium Sulfate/ Calcium Gluconate/ Multivitamins/ Chromium/Copper/ Manganese/Seleni/ Zn/Total Parenteral Nutrition/Amino Acids/Dextrose/ Fat Emulsion Intravenous (Sodium Chloride/ Potassium Phospha... 1,512 ml @ 63 mls/hr TPN CONT IV Last administered on 06/16/16 22:11; Start 06/16/16 at 22:00; Stop 06/17/16 at 21:59 ; Status DC Insulin Detemir (Levemir) 8 units 1X ONCE SQ ; Start 06/16/16 at 15:00; Stop at 15:00; Status DC Insulin Detemir 12 units 12 units 1X ONCE SQ Last administered on 06/16/16 16 :31; Start 06/16/16 at 15:30; Stop 06/16/16 at 15:31; Status DC Sodium Chloride/ Potassium Chloride/ Potassium Phosphate/ Magnesium Sulfate/ Calcium Gluconate/ Multivitamins/ Chromium/Copper/ Manganese/Seleni/ Zn/Total Parenteral Nutrition/Amino Acids/Dextrose/ Fat Emulsion Intravenous (Sodium Chloride/ Potassium Phospha... 1,512 ml @ 63 mls/hr TPN CONT IV Last administered on 06/17/16 22:01; Start 06/17/16 at 22:00; Stop 06/18/16 at 21:59 ; Status DC Methylprednisolone Sodium Succinate 125 mg 125 mg 1X ONCE IV Last administered on 06/18/16 10:53; Start 06/18/16 at 09:45; Stop 06/18/16 at 09:46 ; Status DC Sodium Chloride 90 meq/Potassium Chloride 40 meq/ Potassium Phosphate 13.6 mmol/ Magnesium Sulfate 10 meq/ Calcium Gluconate 5 meq/ Multivitamins 10 ml/Chromium / Copper/Manganese/ Seleni/Zn 1 ml/ Total Parenteral Nutrition/Amino Acids/ Dextrose/ Fat Emulsion Intravenous 1,512 ml @ 63 mls/hr TPN CONT IV Last administered on 06/18/16 21:16; Start 06/18/16 at 22:00; Stop 06/19/16 at 21:59 ; Status DC Sodium Chloride/ Potassium Chloride/ Potassium Phosphate/ Magnesium Sulfate/ Calcium Gluconate/ Multivitamins/ Chromium/Copper/ Manganese/Seleni/ Zn/Total Parenteral Nutrition/Amino Acids/Dextrose/ Fat Emulsion Intravenous (Sodium Chloride/ Potassium Phospha... 1,512 ml @ 63 mls/hr TPN CONT IV Last administered on 06/19/16 20:42; Start 06/19/16 at 22:00; Stop 06/20/16 at 21:59 ; Status DC Methylprednisolone Sodium Succinate (Solu-Medrol 40mg Vial) 40 mg Q8HRS IV Last administered on 06/22/16 06:02; Start 06/19/16 at 14:00; Stop 06/22/16 at 13:13; Status DC Barium Sulfate 148 gm 148 gm 1X ONCE PO Last administered on 06/19/16 11:30; Start 06/19/16 at 11:30; Stop 06/19/16 at 11:32; Status DC Sodium Chloride/ Potassium Phosphate/ Magnesium Sulfate/ Calcium Gluconate/ Multivitamins/ Chromium/Copper/ Manganese/Seleni/ Zn/Total Parenteral Nutrition/ Amino Acids/Dextrose/ Fat Emulsion Intravenous (Sodium Chloride/ Potassium Phosphate/ Infuvite Adult/ Multitrace-5 Co... 1,512 ml @ 63 mls/hr TPN CONT IV Last administered on 06/20/16 21:57; Start 06/20/16 at 22:00; Stop at 21:59; Status DC Insulin Detemir 12 units 12 units QHS SQ Last administered on 06/20/16 22:01; Start 06/20/16 at 21:00; Stop 06/21/16 at 20:10; Status DC Sodium Chloride/ Potassium Phosphate/ Magnesium Sulfate/ Calcium Gluconate/ Multivitamins/ Chromium/Copper/ Manganese/Seleni/ Zn/Insulin Human Regular/ Total Parenteral Nutrition/Amino Acids/Dextrose/ Fat Emulsion Intravenous ( Sodium Chloride/ Potassium Phosphate/ Infuvite Sam... 1,512 ml @ 63 mls/hr TPN CONT IV Last administered on 06/21/16 21:22; Start 06/21/16 at 22:00; Stop 06/22/16 at 21:59; Status DC Insulin Detemir 20 units 20 units QHS SQ Last administered on 06/23/16 21:18; Start 06/21/16 at 21:00; Stop 06/24/16 at 14:37; Status DC Sodium Chloride/ Potassium Phosphate/ Magnesium Sulfate/ Calcium Gluconate/ Multivitamins/ Chromium/Copper/ Manganese/Seleni/ Zn/Insulin Human Regular/ Total Parenteral Nutrition/Amino Acids/Dextrose/ Fat Emulsion Intravenous ( Sodium Chloride/ Potassium Phosphate/ Infuvite Sam... 1,512 ml @ 63 mls/hr TPN CONT IV Last administered on 06/22/16 20:32; Start 06/22/16 at 22:00; Stop 06/23/16 at 21:59; Status DC Methylprednisolone Sodium Succinate (Solu-Medrol 40mg Vial) 40 mg Q12HR IV Last administered on 06/23/16 08:46; Start 06/22/16 at 21:00; Stop 06/23/16 at 16:47; Status DC Methylprednisolone Sodium Succinate (Solu-Medrol 40mg Vial) 20 mg Q12HR IV ; Start 06/25/16 at 09:00; Stop 06/25/16 at 09:00; Status DC Insulin Aspart (Novolog) 0-12 UNITS QIDACHS SQ Last administered on 06/25/16 22:19; Start 06/22/16 at 16:30 Alteplase, Recombinant 2 mg 2 mg 1X ONCE INT CAT Last administered on 08:49; Start 06/23/16 at 07:00; Stop 06/23/16 at 07:01; Status DC Sodium Chloride/ Potassium Phosphate/ Magnesium Sulfate/ Calcium Gluconate/ Multivitamins/ Chromium/Copper/ Manganese/Seleni/ Zn/Insulin Human Regular/ Total Parenteral Nutrition/Amino Acids/Dextrose/ Fat Emulsion Intravenous ( Sodium Chloride/ Potassium Phosphate/ Infuvite Sam... 1,512 ml @ 63 mls/hr TPN CONT IV Last administered on 06/23/16 21:19; Start 06/23/16 at 22:00; Stop 06/24/16 at 21:59; Status DC Methylprednisolone Sodium Succinate (Solu-Medrol 40mg Vial) 40 mg Q12HR IV Last administered on 06/23/16 21:11; Start 06/23/16 at 21:00; Stop 06/23/16 at 23:00; Status DC Methylprednisolone Sodium Succinate (Solu-Medrol 40mg Vial) 20 mg Q12HR IV Last administered on 06/24/16 22:05; Start 06/24/16 at 09:00; Stop 06/24/16 at 21:01; Status DC Methylprednisolone Sodium Succinate (Solu-Medrol 40mg Vial) 20 mg 1X ONCE IV Last administered on 06/25/16 09:13; Start 06/25/16 at 09:00; Stop 06/25/16 at 09:01; Status DC Methylprednisolone Sodium Succinate 10 mg 10 mg 1X ONCE IV Last administered on 06/26/16 08:52; Start 06/26/16 at 09:00; Stop 06/26/16 at 09:01; Status DC Sodium Chloride/ Potassium Phosphate/ Magnesium Sulfate/ Calcium Gluconate/ Multivitamins/ Chromium/Copper/ Manganese/Seleni/ Zn/Insulin Human Regular/ Total Parenteral Nutrition/Amino Acids/Dextrose/ Fat Emulsion Intravenous ( Sodium Chloride/ Potassium Phosphate/ Infuvite Sam... 1,512 ml @ 63 mls/hr TPN CONT IV Last administered on 06/24/16 22:10; Start 06/24/16 at 22:00; Stop 06/25/16 at 21:59; Status DC Insulin Detemir 25 units 25 units QHS SQ Last administered on 06/25/16 22:20; Start 06/24/16 at 21:00 Sodium Chloride/ Potassium Phosphate/ Magnesium Sulfate/ Calcium Gluconate/ Multivitamins/ Chromium/Copper/ Manganese/Seleni/ Zn/Insulin Human Regular/ Total Parenteral Nutrition/Amino Acids/Dextrose/ Fat Emulsion Intravenous ( Sodium Chloride/ Potassium Phosphate/ Infuvite Sam... 1,512 ml @ 63 mls/hr TPN CONT IV Last administered on 3/20/17at 22:18; Start 06/25/16 at 22:00; Stop 06/26/16 at 21:59 Active Scripts Active Ciprofloxacin 250 Mg/5 Ml Christina.mc.rec 250 Mg PO BID Children's Aspirin (Aspirin) 81 Mg Tab.chew 81 Mg PO DAILYWBKFT 30 Days Glipizide Er (Glipizide) 5 Mg Tab.er.24 10 Mg PO DAILY Reported Pravachol (Pravastatin Sodium) 80 Mg Tablet 80 Mg PO DAILY Multi-Vitamin Daily (Multivitamin) 1 Each Tablet 1 Each PO DAILY Lisinopril 5 Mg Tablet 5 Mg PO DAILY Flonase (Fluticasone Propionate) 16 Gm [place].susp 2 [place] NS DAILY Famotidine 40 Mg Tablet 40 Mg PO DAILY Cymbalta (Duloxetine Hcl) 60 Mg Capsule.dr 60 Mg PO DAILY Docusate Sodium 100 Mg Capsule 100 Mg PO DAILY Fish Oil Concentrate Softgel (Docosahexanoic Acid/Epa) 1 Each Capsule 1 Each PO DAILY Caltrate 600 + D Tablet (Calcium Carbonate/Vitamin D3) 1 Each Tablet 1 Each PO DAILY Vitals/I & O Vital Sign - Last 24 Hours 06/25/16 06/25/16 06/25/16 06/25/16 11:00 15:00 19:20 20:00 Temp 97.5 97.6 98.5 97.5 97.6 98.5 Pulse 73 61 54 Resp 18 B/P 142/81 152/51 135/71 Pulse Ox 94 96 97 O2 Delivery Room Air Room Air Room Air Room Air 06/25/16 06/26/16 06/26/16 23:04 03:26 07:00 Temp 98.4 98.2 97.8 98.4 98.2 97.8 Pulse 56 53 51 Resp 18 16 B/P 130/68 148/51 135/51 Pulse Ox 98 96 99 O2 Delivery Room Air Room Air Room Air Intake and Output 06/25/16 06/25/16 06/26/16 15:00 23:00 07:00 Intake Total 1944 ml Balance 1944 ml YOSVANY JENSEN MD Jun 26, 2016 10:32
--- NOTE | 2016-06-26 10:43 | PDOC ---
Subjective: Subjective: "I think I'm okay but I don't know." Hungry. Objective: Objective: Per RN - failed bedside swallow again yesterday, to have video swallow today. Mental status improved today, but still pleasantly confused. Vital Signs: Vital Signs Date Time Temp Pulse Resp B/P Pulse Ox O2 Delivery O2 Flow Rate FiO2 06/26/16 07:00 97.8 51 16 135/51 99 Room Air 97.8 Labs: Laboratory Tests Test 06/25/16 12:12 06/25/16 16:01 06/25/16 21:08 06/26/16 07:24 Glucose (Fingerstick) 214mg/dL (70-99) 250mg/dL (70-99) 202mg/dL (70-99) 131mg/dL (70-99) PE: GEN: NAD LUNGS: CTAB HEART: RRR ABD: NABS, S/ND/NT NEURO/PSYCH: improved today - more talkative A/P: Encephalopathy, dysphagia -WAX POURER following, NPO on TPN -neuro repeating MRI -- Await videoswallow and further WAX POURER recs. OVI LAKHANI Jun 26, 2016 10:43
[2016-06-26 11:00] VITALS: BP 111/50
--- NOTE | 2016-06-26 12:01 | EKG ---
[facility] [address] [place] [address] Test Date: 2016-06-26 Test Time: 11:17:42 Pat Name: SARAVANAN BENITES Department: Room: [facility] Gender: F Superintendent [employer]: : [id number] Requested By: MARTÍNEZ PRAKASH Order Number: [id number] Reading MD: Remy Singh Measurements Intervals Allen Rate: 51 P: 60 RI: 192 QRS: 46 QRSD: 90 T: 80 QT: 416 QTc: 385 Interpretive Statements SINUS RHYTHM NONSPECIFIC ST-T WAVE CHANGES. MILD ST CHANGES IN LEAD III POSSIBLY ABNORMAL ECG RI6.01 Compared to ECG 02/20/2016 14:22:13 No significant changes Electronically Signed On 06-26-2016 13:01:47 CDT by Remy Singh
[2016-06-26] MEDS: TPN PER PHARMACY MC PRN ×2 (13:10→13:13)
[2016-06-26] MEDS ORDERED: BARIUM SULFATE 40% (APPLE) 148 GM PWD. PO ONE (14:00)
--- NOTE | 2016-06-26 14:17 | RAD ---
Video dysphasia study, 06/26/2016: History: Dysphasia The swallowing mechanism was examined fluoroscopically in the lateral projection while the patient ingested a variety of food materials mixed with barium. 2.0 minutes of fluoroscopy time was utilized. One video fluoroscopic loop was recorded by a member of the speech Department. The patient demonstrated good oral control of the barium materials. When ingesting the honey thickened material there was normal passage of the bolus through the cervical esophagus. No significant laryngeal penetration or aspiration occurred. When ingesting the thin liquids there was mild intermittent laryngeal penetration. There was only one episode of minimal aspiration which occurred when ingesting a small amount of the thin liquid by teaspoon. Multiple subsequent swallows of the thin liquids did not result in aspiration. The patient ingested the pudding consistency material and the barium coated solids without difficulty. No further laryngeal penetration or aspiration was observed. There was very little vallecular residue following swallowing. IMPRESSION: Minimally disordered swallowing mechanism as described above.
[2016-06-26 14:57] VITALS: BP 127/55
[2016-06-26 15:27] LABS: BASO % 0 % (0-3); EOS % 0 % (0-3); HEMATOCRIT 36.1 % (36.0-47.0); HEMOGLOBIN 11.9 g/dL (12.0-15.5); LYMPH # 1.3 x10^3/uL (1.0-4.8); LYMPH % 8 % (24-48); MEAN CORPUSCULAR HEMOGLOBIN 31 pg (25-35); MEAN CORPUSCULAR HGB CONC 33 g/dL (31-37); MEAN CORPUSCULAR VOLUME 93 fL (79-100); MONO % 3 % (0-9); NEUT % 88 % (31-73); PLATELET COUNT 306 x10^3/uL (140-400); RED BLOOD COUNT 3.88 x10^6/uL (3.50-5.40); RED CELL DISTRIBUTION WIDTH 13.5 % (11.5-14.5); WHITE BLOOD COUNT 15.4 x10^3/uL (4.0-11.0)
--- NOTE | 2016-06-26 15:29 | PDOC ---
PROGRESS NOTES Chief Complaint Chief Complaint acute metabolic encephalopathy s/p fall w/ rib fx ASSESSMENT AND PLAN: 1. R rib fxs # [id number] with smll PTX: 2/2 fall. treat symptomatically. 2. Acute encephalopathy: almost resolved. improved 3. some underlying dementia: 4. Dysphagia: failed swallow eval - [employer] following, repeat, consider PEG 5. Leukocytosis: fluctuating around upper normal limit with absolute neutrophilia. ESR elevated, ? inflammation +/- steroids 6. Colitis: improved 7. ANT: POA, susp vasomotor etiology. resolved 8. Hyperkalemia: POA. resolved 9. DM: oral glipizide currently on hold 2/ NPO. poorly controlled on ISS only. titrate levemir with steroid taper 10. HTN: slowly improving. oral meds on hold for now. PRN hydralazine 11. GERD: PPI 12. 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 Dispo: to previous A.L. vs rehab when swallowing issues resolved History of Present Illness History of Present Illness Slightly confused Labs stable VS stable Still NPO, another swallow eval today PICC running GI on standby for possible pEG Vitals Vitals Vital Signs Date Time Temp Pulse Resp B/P Pulse Ox O2 Delivery O2 Flow Rate FiO2 06/26/16 14:57 97.6 61 16 127/55 96 Room Air 97.6 Physical Exam General: Alert, Cooperative, No acute distress Heart: Regular rate, No murmurs Lungs: Clear Abdomen: Normal bowel sounds, Soft, No tenderness Extremities: No cyanosis, No edema Skin: No significant lesion Labs LABS Laboratory Tests Test 06/25/16 16:01 06/25/16 21:08 06/26/16 07:24 06/26/16 11:18 Glucose (Fingerstick) 250mg/dL (70-99) 202mg/dL (70-99) 131mg/dL (70-99) 156mg/dL (70-99) Review of Systems Review of Systems vagal response in shower, brief LOC, responded quickly consult CV to follow, cont telemetry Assessment and Plan Assessmemt and Plan Problems Medical Problems: (1) Fall Status: Acute (2) Fall (on) (from) other stairs and steps, initial encounter Status: Acute (3) Ribs, multiple fractures Status: Acute Problems: Comment Review of Relevant I have reviewed the following items quincy (where applicable) has been applied. Labs Laboratory Tests Test 06/24/16 16:54 06/24/16 20:35 06/25/16 06:00 06/25/16 08:26 Glucose (Fingerstick) 253mg/dL (70-99) 207mg/dL (70-99) 236mg/dL (70-99) White Blood Count 10.8x10^3/uL (4.0-11.0) Red Blood Count 3.96x10^6/uL (3.50-5.40) Hemoglobin 11.9g/dL (12.0-15.5) Hematocrit 36.8% (36.0-47.0) Mean Corpuscular Volume 93fL (79-100) Mean Corpuscular Hemoglobin 30pg (25-35) Mean Corpuscular Hemoglobin Concent 32g/dL (31-37) Red Cell Distribution Width 13.8% (11.5-14.5) Platelet Count 293x10^3/uL (140-400) Neutrophils (%) (Auto) 80% (31-73) Lymphocytes (%) (Auto) 14% (24-48) Monocytes (%) (Auto) 6% (0-9) Eosinophils (%) (Auto) 0% (0-3) Basophils (%) (Auto) 0% (0-3) Neutrophils # (Auto) 8.6x10^3uL (1.8-7.7) Lymphocytes # (Auto) 1.5x10^3/uL (1.0-4.8) Monocytes # (Auto) 0.6x10^3/uL (0.0-1.1) Eosinophils # (Auto) 0.0x10^3/uL (0.0-0.7) Basophils # (Auto) 0.0x10^3/uL (0.0-0.2) Sodium Level 141mmol/L (136-145) Potassium Level 3.8mmol/L (3.5-5.1) Chloride Level 105mmol/L (98-107) Carbon Dioxide Level 25mmol/L (21-32) Anion Gap 11 (6-14) Blood Urea Nitrogen 23mg/dL (7-20) Creatinine 0.6mg/dL (0.6-1.0) Estimated GFR (Cockcroft-Gault) 95.7 Glucose Level 237mg/dL (70-99) Calcium Level 8.4mg/dL (8.5-10.1) Phosphorus Level 2.9mg/dL (2.6-4.7) Magnesium Level 1.8mg/dL (1.8-2.4) Test 06/25/16 12:12 06/25/16 16:01 06/25/16 21:08 06/26/16 07:24 Glucose (Fingerstick) 214mg/dL (70-99) 250mg/dL (70-99) 202mg/dL (70-99) 131mg/dL (70-99) Test 06/26/16 11:18 Glucose (Fingerstick) 156mg/dL (70-99) Laboratory Tests Test 06/25/16 16:01 06/25/16 21:08 06/26/16 07:24 06/26/16 11:18 Glucose (Fingerstick) 250mg/dL (70-99) 202mg/dL (70-99) 131mg/dL (70-99) 156mg/dL (70-99) Microbiology 06/10/16 Blood Culture - Final, Complete NO GROWTH AFTER 5 DAYS 06/11/16 Gram Stain - Final, Complete 06/08/16 Urine Culture - Final, Complete 06/08/16 Urine Culture Result 1 (ALEJO) - Final, Complete Medications Current Medications Lidocaine (Lidoderm) 1 patch 1X ONCE TD Last administered on 06/08/16 09:12; Start 06/08/16 at 09:00; Stop 06/08/16 at 09:01; Status DC Acetaminophen (Tylenol) 1,000 mg 1X ONCE PO Last administered on 06/08/16 09: 12; Start 06/08/16 at 09:00; Stop 06/08/16 at 09:01; Status DC Oxycodone/ Acetaminophen (Percocet 5/325) 1 tab 1X ONCE PO Last administered on 06/08/16 10:00; Start 06/08/16 at 10:00; Stop 06/08/16 at 10:01; Status DC Ondansetron HCl (Zofran) 4 mg PRN Q6HRS PRN IV NAUSEA/VOMITING; Start 06/08/16 at 12:00; Stop 06/12/16 at 09:19; Status DC Al Hydrox/Mg Hydrox/Simethicone (Mylanta Plus Xs) 30 ml PRN Q3HRS PRN PO HEARTBURN / GAS; Start 06/08/16 at 12:00; Stop 06/12/16 at 09:19; Status DC Calcium Carbonate/ Glycine (Tums) 500 mg PRN Q3HRS PRN PO UPSET STOMACH; Start 06/08/16 at 12:00; Stop 06/12/16 at 09:19; Status DC Oxycodone HCl (Roxicodone) 5 mg PRN Q3HRS PRN PO BREAKTHROUGH PAIN; Start at 12:00; Stop 06/12/16 at 09:19; Status DC Morphine Sulfate 1 mg PRN Q2HR PRN IV PAIN; Start 06/08/16 at 12:00; Stop at 09:19; Status DC Oxycodone/ Acetaminophen (Percocet 5/325) 1 tab PRN Q4HRS PRN PO MILD PAIN, 1ST CHOICE Last administered on 06/09/16 15:03; Start 06/08/16 at 12:00; Stop 06/12/16 at 09:19; Status DC Docusate Sodium (Colace) 100 mg BID PO ; Start 06/08/16 at 21:00; Status Cancel Magnesium Hydroxide (Milk Of Magnesia) 2,400 mg PRN Q12HR PRN PO CONSTIPATION; Start 06/08/16 at 12:00; Stop 06/12/16 at 09:19; Status DC Lactulose 20 gm PRN Q12HR PRN PO CONSTIPATION; Start 06/08/16 at 12:00; Stop 06/12/16 at 09:19; Status DC Bisacodyl (Dulcolax Supp) 10 mg PRN DAILY PRN ID CONSTIPATION; Start 06/08/16 at 12:00; Stop 06/12/16 at 09:19; Status DC Enoxaparin Sodium (Lovenox 40mg Syringe) 40 mg DAILY16 SQ Last administered on 06/09/16 15:03; Start 06/08/16 at 16:00; Stop 06/10/16 at 12:52; Status DC Lidocaine (Lidoderm) 1 patch DAILY TD Last administered on 06/26/16 08:55; Start 06/08/16 at 13:00 Aspirin (Children'S Aspirin) 81 mg DAILYWBKFT PO Last administered on 06/09/16 07:41; Start 06/08/16 at 13:00 Docusate Sodium (Colace) 100 mg DAILY PO Last administered on 06/09/16 09:00; Start 06/09/16 at 09:00 Fluticasone Propionate (Flonase) 2 spray DAILY NS Last administered on 08:51; Start 06/08/16 at 13:00 Glipizide (Glucotrol Er) 10 mg DAILY08 PO Last administered on 06/09/16 07:38; Start 06/08/16 at 13:00 Lisinopril (Prinivil) 5 mg DAILY PO Last administered on 06/09/16 07:39; Start 06/08/16 at 13:00 Calcium/Vitamin D (Oscal D 500mg/ 200uts) 1 tab DAILY PO Last administered on 07:39; Start 06/08/16 at 13:00 Fish Oil (Fish Oil) 1,000 mg DAILY PO Last administered on 06/09/16 07:38; Start 06/08/16 at 13:00 Duloxetine HCl (Cymbalta) 60 mg DAILY PO Last administered on 06/09/16 07:40; Start 06/08/16 at 13:00 Famotidine (Pepcid) 40 mg DAILY PO Last administered on 06/09/16 07:40; Start 06/08/16 at 13:00; Stop 06/10/16 at 11:55; Status DC Multivitamins/ Calcium (Thera M Plus) 1 tab DAILY PO Last administered on 07:39; Start 06/08/16 at 13:00 Atorvastatin Calcium (Lipitor) 20 mg QHS PO Last administered on 06/08/16 20:56 ; Start 06/08/16 at 21:00 Insulin Aspart (Novolog) 0-9 UNITS TIDWMEALS SQ Last administered on 06/13/16 17:49; Start 06/08/16 at 12:30; Stop 06/13/16 at 20:54; Status DC Dextrose 12.5 gm PRN Q15MIN PRN IV SEE COMMENTS; Start 06/08/16 at 12:15 Ondansetron HCl 4 mg 4 mg PRN Q8HRS PRN IV NAUSEA/VOMITING; Start 06/08/16 at 12 :45; Stop 06/09/16 at 12:44; Status DC Piperacillin Sod/ Tazobactam Sod/ Sodium Chloride (Zosyn/Iv Sodium Chloride 0.9 % 50ml) 50 ml @ 100 mls/hr Q6HRS IV Last administered on 06/17/16 12:28; Start 06/10/16 at 12:00; Stop 06/17/16 at 13:13; Status DC Pantoprazole Sodium 40 mg 40 mg DAILYAC IVP Last administered on 06/26/16 08: 52; Start 06/10/16 at 11:00 Amino Acids/ Electrolytes/ Dextrose 1,000 ml @ 75 mls/hr [id number] PRN IV . Last administered on 06/14/16 20:34; Start 06/10/16 at 11:00; Stop 06/15/16 at 21:59; Status DC Sodium Chloride (Iv Sodium Chloride 0.9% 1000ml Bag) 1,000 ml @ 50 mls/hr Q20H IV Last administered on 06/24/16 05:04; Start 06/10/16 at 11:00; Stop 06/24/16 at 14:37; Status DC Naloxone HCl (Narcan) 0.4 mg PRN Q2MIN PRN IV SEE COMMENTS; Start 06/10/16 at 11 :30 Naloxone HCl 0.4 mg 0.4 mg 1X ONCE IV Last administered on 06/10/16 12:07; Start 06/10/16 at 12:00; Stop 06/10/16 at 12:01; Status DC Daptomycin 500 mg/ Sodium Chloride 50 ml @ 100 mls/hr Q24H IV Last administered on 06/10/16 14:56; Start 06/10/16 at 14:00; Stop 06/10/16 at 18:00; Status DC Metronidazole (FLAGYL 500Mmg PREMIX) 100 ml @ 100 mls/hr Q8H IV Last administered on 06/12/16 08:08; Start 06/10/16 at 16:00; Stop 06/12/16 at 09:07; Status DC Lorazepam (Ativan) 1 mg PRN Q4HRS PRN IV ANXIETY / AGITATION Last administered on 06/10/16 17:28; Start 06/10/16 at 17:00; Stop 06/12/16 at 09:19; Status DC Flumazenil 0.1 mg 0.1 mg 1X ONCE IV Last administered on 06/11/16 15:15; Start 06/11/16 at 14:30; Stop 06/11/16 at 14:33; Status DC Acyclovir Sodium/ Dextrose (Zovirax) 262.4 ml @ 262.4 mls/ hr Q8HRS IV Last administered on 06/17/16 05:10; Start 06/13/16 at 09:00; Stop 06/17/16 at 13:13 ; Status DC Alteplase, Recombinant (Cathflo) 2 mg 1X ONCE INT CAT Last administered on 06/13 16:14; Start 06/13/16 at 15:00; Stop 06/13/16 at 15:01; Status DC Insulin Aspart (Novolog) 0-9 UNITS QIDACHS SQ Last administered on 06/22/16 12 :20; Start 06/13/16 at 21:00; Stop 06/22/16 at 13:37; Status DC Info 1 each 1 each PRN DAILY PRN MC SEE COMMENTS Last administered on 13:13; Start 06/15/16 at 11:00 Sodium Chloride/ Potassium Chloride/ Potassium Phosphate/ Magnesium Sulfate/ Calcium Gluconate/ Multivitamins/ Chromium/Copper/ Manganese/Seleni/ Zn/Total Parenteral Nutrition/Amino Acids/Dextrose/ Fat Emulsion Intravenous (Sodium Chloride/ Potassium Phospha... 1,512 ml @ 63 mls/hr TPN CONT IV Last administered on 06/15/16 21:21; Start 06/15/16 at 22:00; Stop 06/16/16 at 21:59 ; Status DC Saliva Substitute 2 spray 2 spray PRN Q15MIN PRN PO DRY MOUTH; Start 06/16/16 at 11:15 Sodium Chloride/ Potassium Chloride/ Potassium Phosphate/ Magnesium Sulfate/ Calcium Gluconate/ Multivitamins/ Chromium/Copper/ Manganese/Seleni/ Zn/Total Parenteral Nutrition/Amino Acids/Dextrose/ Fat Emulsion Intravenous (Sodium Chloride/ Potassium Phospha... 1,512 ml @ 63 mls/hr TPN CONT IV Last administered on 06/16/16 22:11; Start 06/16/16 at 22:00; Stop 06/17/16 at 21:59 ; Status DC Insulin Detemir (Levemir) 8 units 1X ONCE SQ ; Start 06/16/16 at 15:00; Stop at 15:00; Status DC Insulin Detemir 12 units 12 units 1X ONCE SQ Last administered on 06/16/16 16 :31; Start 06/16/16 at 15:30; Stop 06/16/16 at 15:31; Status DC Sodium Chloride/ Potassium Chloride/ Potassium Phosphate/ Magnesium Sulfate/ Calcium Gluconate/ Multivitamins/ Chromium/Copper/ Manganese/Seleni/ Zn/Total Parenteral Nutrition/Amino Acids/Dextrose/ Fat Emulsion Intravenous (Sodium Chloride/ Potassium Phospha... 1,512 ml @ 63 mls/hr TPN CONT IV Last administered on 06/17/16 22:01; Start 06/17/16 at 22:00; Stop 06/18/16 at 21:59 ; Status DC Methylprednisolone Sodium Succinate 125 mg 125 mg 1X ONCE IV Last administered on 06/18/16 10:53; Start 06/18/16 at 09:45; Stop 06/18/16 at 09:46 ; Status DC Sodium Chloride 90 meq/Potassium Chloride 40 meq/ Potassium Phosphate 13.6 mmol/ Magnesium Sulfate 10 meq/ Calcium Gluconate 5 meq/ Multivitamins 10 ml/Chromium / Copper/Manganese/ Seleni/Zn 1 ml/ Total Parenteral Nutrition/Amino Acids/ Dextrose/ Fat Emulsion Intravenous 1,512 ml @ 63 mls/hr TPN CONT IV Last administered on 06/18/16 21:16; Start 06/18/16 at 22:00; Stop 06/19/16 at 21:59 ; Status DC Sodium Chloride/ Potassium Chloride/ Potassium Phosphate/ Magnesium Sulfate/ Calcium Gluconate/ Multivitamins/ Chromium/Copper/ Manganese/Seleni/ Zn/Total Parenteral Nutrition/Amino Acids/Dextrose/ Fat Emulsion Intravenous (Sodium Chloride/ Potassium Phospha... 1,512 ml @ 63 mls/hr TPN CONT IV Last administered on 06/19/16 20:42; Start 06/19/16 at 22:00; Stop 06/20/16 at 21:59 ; Status DC Methylprednisolone Sodium Succinate (Solu-Medrol 40mg Vial) 40 mg Q8HRS IV Last administered on 06/22/16 06:02; Start 06/19/16 at 14:00; Stop 06/22/16 at 13:13; Status DC Barium Sulfate 148 gm 148 gm 1X ONCE PO Last administered on 06/19/16 11:30; Start 06/19/16 at 11:30; Stop 06/19/16 at 11:32; Status DC Sodium Chloride/ Potassium Phosphate/ Magnesium Sulfate/ Calcium Gluconate/ Multivitamins/ Chromium/Copper/ Manganese/Seleni/ Zn/Total Parenteral Nutrition/ Amino Acids/Dextrose/ Fat Emulsion Intravenous (Sodium Chloride/ Potassium Phosphate/ Infuvite Adult/ Multitrace-5 Co... 1,512 ml @ 63 mls/hr TPN CONT IV Last administered on 06/20/16 21:57; Start 06/20/16 at 22:00; Stop at 21:59; Status DC Insulin Detemir 12 units 12 units QHS SQ Last administered on 06/20/16 22:01; Start 06/20/16 at 21:00; Stop 06/21/16 at 20:10; Status DC Sodium Chloride/ Potassium Phosphate/ Magnesium Sulfate/ Calcium Gluconate/ Multivitamins/ Chromium/Copper/ Manganese/Seleni/ Zn/Insulin Human Regular/ Total Parenteral Nutrition/Amino Acids/Dextrose/ Fat Emulsion Intravenous ( Sodium Chloride/ Potassium Phosphate/ Infuvite Sam... 1,512 ml @ 63 mls/hr TPN CONT IV Last administered on 06/21/16 21:22; Start 06/21/16 at 22:00; Stop 06/22/16 at 21:59; Status DC Insulin Detemir 20 units 20 units QHS SQ Last administered on 06/23/16 21:18; Start 06/21/16 at 21:00; Stop 06/24/16 at 14:37; Status DC Sodium Chloride/ Potassium Phosphate/ Magnesium Sulfate/ Calcium Gluconate/ Multivitamins/ Chromium/Copper/ Manganese/Seleni/ Zn/Insulin Human Regular/ Total Parenteral Nutrition/Amino Acids/Dextrose/ Fat Emulsion Intravenous ( Sodium Chloride/ Potassium Phosphate/ Infuvite Sam... 1,512 ml @ 63 mls/hr TPN CONT IV Last administered on 06/22/16 20:32; Start 06/22/16 at 22:00; Stop 06/23/16 at 21:59; Status DC Methylprednisolone Sodium Succinate (Solu-Medrol 40mg Vial) 40 mg Q12HR IV Last administered on 06/23/16 08:46; Start 06/22/16 at 21:00; Stop 06/23/16 at 16:47; Status DC Methylprednisolone Sodium Succinate (Solu-Medrol 40mg Vial) 20 mg Q12HR IV ; Start 06/25/16 at 09:00; Stop 06/25/16 at 09:00; Status DC Insulin Aspart (Novolog) 0-12 UNITS QIDACHS SQ Last administered on 06/26/16 13:22; Start 06/22/16 at 16:30 Alteplase, Recombinant 2 mg 2 mg 1X ONCE INT CAT Last administered on 08:49; Start 06/23/16 at 07:00; Stop 06/23/16 at 07:01; Status DC Sodium Chloride/ Potassium Phosphate/ Magnesium Sulfate/ Calcium Gluconate/ Multivitamins/ Chromium/Copper/ Manganese/Seleni/ Zn/Insulin Human Regular/ Total Parenteral Nutrition/Amino Acids/Dextrose/ Fat Emulsion Intravenous ( Sodium Chloride/ Potassium Phosphate/ Infuvite Sam... 1,512 ml @ 63 mls/hr TPN CONT IV Last administered on 06/23/16 21:19; Start 06/23/16 at 22:00; Stop 06/24/16 at 21:59; Status DC Methylprednisolone Sodium Succinate (Solu-Medrol 40mg Vial) 40 mg Q12HR IV Last administered on 06/23/16 21:11; Start 06/23/16 at 21:00; Stop 06/23/16 at 23:00; Status DC Methylprednisolone Sodium Succinate (Solu-Medrol 40mg Vial) 20 mg Q12HR IV Last administered on 06/24/16 22:05; Start 06/24/16 at 09:00; Stop 06/24/16 at 21:01; Status DC Methylprednisolone Sodium Succinate (Solu-Medrol 40mg Vial) 20 mg 1X ONCE IV Last administered on 06/25/16 09:13; Start 06/25/16 at 09:00; Stop 06/25/16 at 09:01; Status DC Methylprednisolone Sodium Succinate 10 mg 10 mg 1X ONCE IV Last administered on 06/26/16 08:52; Start 06/26/16 at 09:00; Stop 06/26/16 at 09:01; Status DC Sodium Chloride/ Potassium Phosphate/ Magnesium Sulfate/ Calcium Gluconate/ Multivitamins/ Chromium/Copper/ Manganese/Seleni/ Zn/Insulin Human Regular/ Total Parenteral Nutrition/Amino Acids/Dextrose/ Fat Emulsion Intravenous ( Sodium Chloride/ Potassium Phosphate/ Infuvite Sam... 1,512 ml @ 63 mls/hr TPN CONT IV Last administered on 06/24/16 22:10; Start 06/24/16 at 22:00; Stop 06/25/16 at 21:59; Status DC Insulin Detemir 25 units 25 units QHS SQ Last administered on 06/25/16 22:20; Start 06/24/16 at 21:00 Sodium Chloride 90 meq/Potassium Phosphate 13.6 mmol/Magnesium Sulfate 10 meq/ Calcium Gluconate 5 meq/ Multivitamins 10 ml/Chromium/ Copper/Manganese/ Seleni/ Zn 1 ml/ Insulin Human Regular 10 unit/ Total Parenteral Nutrition/Amino Acids/ Dextrose/ Fat Emulsion Intravenous 1,512 ml @ 63 mls/hr TPN CONT IV Last administered on 06/25/16 22:18; Start 06/25/16 at 22:00; Stop 06/26/16 at 21:59 Sodium Chloride/ Potassium Phosphate/ Magnesium Sulfate/ Calcium Gluconate/ Multivitamins/ Chromium/Copper/ Manganese/Seleni/ Zn/Insulin Human Regular/ Total Parenteral Nutrition/Amino Acids/Dextrose/ Fat Emulsion Intravenous ( Sodium Chloride/ Potassium Phosphate/ Infuvite Sam... 1,512 ml @ 63 mls/hr TPN CONT IV ; Start 06/26/16 at 22:00; Stop 06/27/16 at 21:59 Barium Sulfate (Varibar Thin Liquid Apple) 148 gm 1X ONCE PO Last administered on 06/26/16 14:00; Start 06/26/16 at 14:00; Stop 06/26/16 at 14:01 ; Status DC Active Scripts Active Ciprofloxacin 250 Mg/5 Ml Christina.mc.rec 250 Mg PO BID Children's Aspirin (Aspirin) 81 Mg Tab.chew 81 Mg PO DAILYWBKFT 30 Days Glipizide Er (Glipizide) 5 Mg Tab.er.24 10 Mg PO DAILY Reported Pravachol (Pravastatin Sodium) 80 Mg Tablet 80 Mg PO DAILY Multi-Vitamin Daily (Multivitamin) 1 Each Tablet 1 Each PO DAILY Lisinopril 5 Mg Tablet 5 Mg PO DAILY Flonase (Fluticasone Propionate) 16 Gm Vail.susp 2 Vail NS DAILY Famotidine 40 Mg Tablet 40 Mg PO DAILY Cymbalta (Duloxetine Hcl) 60 Mg Capsule.dr 60 Mg PO DAILY Docusate Sodium 100 Mg Capsule 100 Mg PO DAILY Fish Oil Concentrate Softgel (Docosahexanoic Acid/Epa) 1 Each Capsule 1 Each PO DAILY Caltrate 600 + D Tablet (Calcium Carbonate/Vitamin D3) 1 Each Tablet 1 Each PO DAILY Vitals/I & O Vital Sign - Last 24 Hours 06/25/16 06/25/16 06/25/16 06/26/16 19:20 20:00 23:04 03:26 Temp 98.5 98.4 98.2 98.5 98.4 98.2 Pulse 54 56 53 Resp 18 18 18 B/P 135/71 130/68 148/51 Pulse Ox 97 98 96 O2 Delivery Room Air Room Air Room Air Room Air 06/26/16 06/26/16 06/26/16 06/26/16 07:00 07:40 11:00 14:57 Temp 97.8 97.4 97.6 97.8 97.4 97.6 Pulse 51 72 61 Resp 16 16 16 B/P 135/51 111/50 127/55 Pulse Ox 99 97 96 O2 Delivery Room Air Room Air Room Air Room Air Intake and Output 06/25/16 06/25/16 06/26/16 15:00 23:00 07:00 Intake Total 1944 ml Balance 1944 ml TAI CELESTE MD Jun 26, 2016 15:28
--- NOTE | 2016-06-26 15:39 | PDOC2 ---
FANNYSERA PINA LIMOUSINE AND HEARSE UPHOLSTERER 06/26/16 1538: CARDIAC CONSULT DATE OF CONSULT Date of Consult DATE: 06/26/16 TIME: 15:13 REASON FOR CONSULT Reason for Consult: syncope with rapid response earlier today REFERRING PHYSICIAN Referring Physician: Dr. Shayla Monsivais SOURCE Source: Caregiver (son and dtr - in - law), Chart review, Patient HISTORY OF PRESENT ILLNESS HISTORY OF PRESENT ILLNESS 81 year old female admitted 06/08/2016 after fall at assisted living resulting in rib fractures; subsequently found to have pneumothorax. Hospital stay has been prolonged by melena and mentation changes follow by ? of aspiration. Earlier today was taken to shower and lost consciousness for about 2 minutes per nursing staff. BP was 85/50. Loss of bladder and bowel control in the shower. Rapid response called and pt placed in recliner with rapid return of mentation and then transferred to bed. Now without recall of these events and off telemetry for shower. EKG done at the time of rapid response was SB with rate ~ 50; no acute changes, though non-specific ST changes. Reason for Visit: syncope PAST MEDICAL HISTORY Cardiovascular: CAD (with stent to unknown target), Hyperlipidemia Pulmonary: No pertinent hx CENTRAL NERVOUS SYSTEM: CVA (no residual), Dementia (?), TIA GI: GERD (on PPI) Heme/Onc: Cancer (left breast with mastectomy; small bowel with resection ) Hepatobiliary: No pertinent hx Psych: No pertinent hx Musculoskeletal: Osteoarthritis (knees) Rheumatologic: No pertinent hx Infectious disease: No pertinent hx ENT: No pertinent hx Renal/: UTI (frequent) Endocrine: Diabetes (type II) Dermatology: No pertinent hx PAST SURGICAL HISTORY Past Surgical History: Cholecystectomy, Cataract Removal (bilateral with IOL), Mastectomy (left), Tonsillectomy, Hysterectomy, Other (small bowel resection; back) FAMILY HISTORY Family History: Heart Disease (father and brother of [place]), Stroke ( brother) SOCIAL HISTORY Smoke: No ALCOHOL: none Drugs: None Lives: [facility] (assisted living @ [facility]) CURRENT MEDICATIONS CURRENT MEDICATIONS Current Medications Medications (Trade) Dose Ordered Sig/Lakeisha Route PRN Reason Start Time Stop Time Status Last Admin Dose Admin Methylprednisolone Sodium Succinate 10 mg 10 mg 1X ONCE IV 06/26/16 09:00 06/26/16 09:01 DC 06/26/16 08:52 Sodium Chloride/ Potassium Phosphate/ Magnesium Sulfate/ Calcium Gluconate/ Multivitamins/ Chromium/Copper/ Manganese/Seleni/ Zn/Insulin Human Regular/Total Parenteral Nutrition/Amino Acids/Dextrose/ Fat Emulsion Intravenous (Sodium Chloride/ Potassium Phosphate/ Infuvite Sam... 1,512 ml @ 63 mls/hr TPN CONT IV 06/25/16 22:00 06/26/16 21:59 06/25/16 22:18 Barium Sulfate (Varibar Thin Liquid Apple) 148 gm 1X ONCE PO 06/26/16 14:00 06/26/16 14:01 DC 06/26/16 14:00 ALLERGIES ALLERGIES: Coded Allergies: metformin (Verified Allergy, Intermediate, 05/13/14) ROS Review of System limited as patient without recall, family denies recent complaints from her of chest pain, dyspnea PSYCHOLOGICAL ROS: YES: Memory difficulties Eyes: No Blurry vision, No Decreased vision, No Double vision, No Dry eyes, No Excessive tearing, No Eye Pain, No Itchy Eyes, No Loss of vision, No Other, No Photophobia, No Scotomata, No Uses contacts, No Uses glasses HEENT: No: Epistaxis, Heacaches, Hearing change, Nasal congestion, Nasal discharge, Oral lesions, Other, Sinus pain, Sneezing, Snoring, Sore Throat, Tinnitus, Vertigo, Visual Changes, Vocal changes Respiratory: No: Cough, Hemoptysis, Orthopnea, Other, Pleuritic Pain, SOB with excertion, Shortness of breath, Sputum Changes, Stridor, Tachypnea, Wheezing Cardiovascular: No Chest Pain, No Edema, No Lt Headedness, No Orthopnea, No Other, No Palpitations, No Paroxysmal Noc. Dyspnea Gastrointestinal: Yes Melena Musculoskeletal: Yes Joint Pain, Yes Other (recent fall) Neurological: Yes Confusion, Yes Memory Loss Skin: No Acne, No Dry Skin, No Eczema, No Hair Changes, No Lumps, No Mole Changes, No Mottling, No Nail Changes, No Other, No Pruritus, No Rash, No Skin Lesion Changes PHYSICAL EXAM General: Alert, Cooperative, No acute distress HEENT: Atraumatic, PERRLA Lungs: Clear to auscultation, Normal air movement Heart: Normal S1, Normal S2, No murmurs, Other (negative carotid bruits) Abdomen: Normal bowel sounds, Soft Extremities: No edema, Other (DP and PT pulses difficult to palpate but present ) Skin: No rashes Neuro: Normal speech Psych/Mental Status: Mood NL MUSCULOSKELETAL: Osteoarthritic changes both hands VITALS VITALS Vital Signs Date Time Temp Pulse Resp B/P Pulse Ox O2 Delivery O2 Flow Rate FiO2 06/26/16 14:57 97.6 61 16 127/55 96 Room Air 97.6 LABS Lab: Laboratory Tests Test 06/25/16 16:01 06/25/16 21:08 06/26/16 07:24 06/26/16 11:18 Glucose (Fingerstick) 250mg/dL (70-99) 202mg/dL (70-99) 131mg/dL (70-99) 156mg/dL (70-99) IMAGES IMAGES CXR: 06/15/2016 Comparison is made to a study from 06/14/2016. A right PICC extends into the superior vena cava. The heart size and pulmonary vascularity are normal. The left chest is clear. There appears to be minimal streaky atelectasis or scarring in the right base. There is no evidence of pneumothorax or significant pleural fluid. Displaced right-sided rib fractures are again noted. IMPRESSION: 1. Residual mild right basilar atelectasis. 2. No evidence of pneumothorax. EKG EKG no acute changes ECHOCARDIOGRAM ECHOCARDIOGRAM 04/22/2015: TTE: The left ventricular systolic function is normal and the ejection fraction is within normal range. The Ejection Fraction is 60%. There is mild concentric LVH The right ventricle is normal size. The left atrium size is normal. The right atrium size is normal. The aortic valve is calcified but opens well. The mitral valve is calcified but opens well. Mitral annular calcification is mild. The tricuspid valve is normal in structure and function. The pulmonary valve is normal in structure and function. There is no evidence of significant pericardial effusion. No thrombus was seen in any of the chambers ASSESSMENT/PLAN ASSESSMENT/PLAN 1. syncope with bowel and bladder incontinence no evidence of dysrhythmias surrounding that time or since continue tele request records from [facility] echo to re-evaluate LVEF and assess calcified aortic and mitral valves 2. CAD with history of stent records requested no angina no acute changes in monitoring coordinator for now 3. HLD continue statin therapy 4. recent fall with rib fracture and small pnuemothorax now resolved Problems: ALFIE EDGAR MD 06/26/16 1649: CARDIAC CONSULT ALLERGIES ALLERGIES: Coded Allergies: metformin (Verified Allergy, Intermediate, 05/13/14) ASSESSMENT/PLAN ASSESSMENT/PLAN Patient seen and examined. Agree with above nurse practitioner noted. 81-year-old woman with syncopal event while showering. No obvious cardiac abdomen is noted on examination. Awaiting outside hospital records. Currently no obvious abnormalities on telemetry. Echocardiogram pending. Problems: SERA RECIO APRN Jun 26, 2016 15:38 ALFIE EDGAR MD Jun 26, 2016 16:49
[2016-06-26 15:43] LABS: ALBUMIN 2.3 g/dL (3.4-5.0); ALBUMIN/GLOBULIN RATIO 0.7 (1.0-1.7); CALCIUM 8.4 mg/dL (8.5-10.1); CREATININE 0.7 mg/dL (0.6-1.0); GFR 80.1; POTASSIUM 3.9 mmol/L (3.5-5.1); TOTAL BILIRUBIN 0.4 mg/dL (0.2-1.0); TOTAL PROTEIN 5.4 g/dL (6.4-8.2)
--- NOTE | 2016-06-26 16:00 | RAD ---
PROCEDURE MRI of the brain without contrast 06/26/2016 HISTORY Dysphagia since early June. TECHNIQUE Unenhanced T1 weighted sagittal and axial, T2 weighted axial and coronal and FLAIR, gradient echo and diffusion weighted axial images of the brain were obtained. FINDINGS Comparison study is dated 06/10/2016. Some of the images are degraded by patient motion. There is generalized parenchymal atrophy. Patchy, confluent and small scattered areas of abnormally increased signal intensity are seen within the periventricular and subcortical white matter of both cerebral hemispheres along with the cruz on the FLAIR and T2 weighted images consistent with areas of small vessel ischemic disease. An old area of infarction is seen involving the right cerebellar hemisphere. This measures 7 millimeters in size. Old areas of lacunar infarction are seen involving the left thalamus. These measure 3-4 millimeters in size. A 1.5 centimeter arachnoid cyst is seen posterior to the vermis of the cerebellum, unchanged. There is no significant associated mass effect. No acute parenchymal abnormality is seen. There is no MRI evidence of acute ischemia/infarction. No acute extra-axial fluid collection is seen. A 1.6 centimeter mucous retention cyst is seen involving left maxillary sinus. Mild mucosal thickening is seen involving scattered ethmoid air cells bilaterally. There are small to moderate-sized mastoid effusions, right greater than left. Normal flow voids are seen within the major vascular structures surrounding the brain parenchyma. IMPRESSION No acute parenchymal abnormality is seen. Electronically signed by: Adrian Proctor MD (Jun 26, 2016 15:59:27)
[2016-06-26 19:15] VITALS: BP 124/47
[2016-06-26 19:54] LABS: % BASOS 1 % (0-3); % EOS 1 % (0-5)
[2016-06-26 19:56] LABS: PLT ESTIMATE ADEQUATE (ADEQUATE)
[2016-06-26 19:57] LABS: ANISOCYTOSIS SLIGHT; OVALOCYTES OCC; POLYCHROMASIA SLIGHT
[2016-06-26] MEDS: ATORVASTATIN CALCIUM 20 MG TABLET PO SCH (21:31)
[2016-06-26] MEDS: INSULIN DETEMIR 300 UNITS/3 ML INSULN.PEN. SQ SCH (21:36)
[2016-06-26] MEDS ORDERED: AMINO ACIDS IV SCH ×10 (22:00)
[2016-06-26] MEDS ORDERED: DEXTROSE 70% IV SCH ×10 (22:00)
[2016-06-26] MEDS ORDERED: TOTAL PARENTERAL NUTRITION IV SCH ×10 (22:00)
[2016-06-26] MEDS ORDERED: [UNRECOGNIZED DRUG - OTHER] IV SCH ×10 (22:00)
[2016-06-26 23:10] VITALS: BP 125/55
[2016-06-27 03:02] VITALS: BP 139/57
[2016-06-27 05:17] LABS: CALCIUM 8.5 mg/dL (8.5-10.1); CREATININE 0.8 mg/dL (0.6-1.0); GFR 68.7; POTASSIUM 3.1 mmol/L (3.5-5.1)
[2016-06-27 07:00] VITALS: BP 183/61
[2016-06-27] MEDS: PANTOPRAZOLE IV PUSH 40 MG VIAL. IVP SCH (09:15)
[2016-06-27] MEDS: ASPIRIN 81 MG TAB.CHEW PO SCH (09:15)
[2016-06-27] MEDS: GLIPIZIDE ER 5 MG TAB.ER.24 PO SCH (09:15)
[2016-06-27] MEDS: LIDOCAINE (700MG/PATCH) PATCH. TD SCH (09:15)
[2016-06-27] MEDS: DOCUSATE SODIUM 100 MG CAPSULE PO SCH (09:15)
[2016-06-27] MEDS: CALCIUM CARB/VIT D3 500/200 TABLET PO SCH (09:16)
[2016-06-27] MEDS: OMEGA-3 FATTY ACIDS/FISH OIL 1,000 MG CAPSULE. PO SCH (09:16)
[2016-06-27] MEDS: MULTIVITAMIN with MINERAL TABLET. PO SCH (09:16)
[2016-06-27] MEDS: FLUTICASONE 50MCG/NASAL SPRAY 16GM BOTTLE. NS SCH (09:16)
[2016-06-27] MEDS: DULOXETINE HCL 30 MG CAPSULE.DR. PO SCH (09:16)
[2016-06-27] MEDS: LISINOPRIL 5 MG TABLET. PO SCH (09:16)
[2016-06-27] MEDS: INSULIN ASPART 300 UNITS/3 ML INSULN.PEN SQ SCH ×4 (09:26→21:00)
--- NOTE | 2016-06-27 10:25 | PDOC ---
Subjective: Subjective: Ate yesterday and this morning w/o issue. Objective: Vital Signs: Vital Signs Date Time Temp Pulse Resp B/P Pulse Ox O2 Delivery O2 Flow Rate FiO2 06/27/16 09:16 63 183/61 06/27/16 07:30 Room Air 06/27/16 07:00 97.7 18 97 97.7 Labs: Laboratory Tests Test 06/26/16 11:18 06/26/16 16:45 06/26/16 21:12 06/27/16 06:58 Glucose (Fingerstick) 156mg/dL (70-99) 185mg/dL (70-99) 277mg/dL (70-99) 190mg/dL (70-99) Imaging: Videoswallow 06/26/16 IMPRESSION: Minimally disordered swallowing mechanism. Initial Videoswallow Study Report Videoswallow study completed. Inconsistent deep penetration of thin liquids via cup. None w/honey thick via cup. Safe and efficient swallow of solids and puree. IMPRESSIONS: Resolving dysphagia but still moderate risk of aspiration w/thin liquids. Anticipate safe and efficient po intake of rec'd modified diet to meet nutritional needs and take po meds. Improving status of thin liquids, will need repeat video 2-3 weeks prior to upgrade to thin d/t risk of silent aspiration. Can do as OP. RECOMMENDATIONS: Dysphagia III diet w/honey thick liquids. Precautions as posted. NO UN-thickened liquids. Meds w/honey thick liquids. Up to chair for meals if poss. Allow pt to feed self, alternate consistencies. PE: GEN: NAD LUNGS: CTAB HEART: RRR ABD: S/ND/NT NEURO/PSYCH: improving A/P: Encephalopathy, dysphagia - improved -videoswallow as above, now eating dysphagia diet -- Continue same. OVI LAKHANI Jun 27, 2016 10:25
[2016-06-27] MEDS ORDERED: POTASSIUM CHLORIDE 20 MEQ TABLET.ER. PO ONE (10:45)
--- NOTE | 2016-06-27 10:51 | PDOC ---
PROGRESS NOTES Chief Complaint Chief Complaint acute metabolic encephalopathy s/p fall w/ rib fx 1. R rib fxs # [id number] with smll PTX: 2/2 fall. treat symptomatically. 2. Acute encephalopathy: almost resolved. improved 3. some underlying dementia: 4. Dysphagia: improved, 5. Leukocytosis: fluctuating 6. Colitis: improved 7. ANT: POA, susp vasomotor etiology. resolved 8. Hyperkalemia: POA. resolved 9. DM 2: ISS only. 10. HTN: slowly improving. oral meds 11. GERD: PPI 12. 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 Dispo: rehab maybe tomorrow, august DC tpn 15. hypokalemia, replace pO History of Present Illness History of Present Illness less confused this AM, ate breakfast well Labs stable VS stable passed swallow eval, Vitals Vitals Vital Signs Date Time Temp Pulse Resp B/P Pulse Ox O2 Delivery O2 Flow Rate FiO2 06/27/16 09:16 63 183/61 06/27/16 07:30 Room Air 06/27/16 07:00 97.7 18 97 97.7 Physical Exam General: Alert, Cooperative, No acute distress Heart: Normal S1, Normal S2, No murmurs, Other (negative carotid bruits) Lungs: Clear Abdomen: Normal bowel sounds, Soft Extremities: No edema, Other (DP and PT pulses difficult to palpate but present ) Skin: No rashes Labs LABS Laboratory Tests Test 06/26/16 11:18 06/26/16 15:20 06/26/16 16:45 06/26/16 21:12 Glucose (Fingerstick) 156mg/dL (70-99) 185mg/dL (70-99) 277mg/dL (70-99) White Blood Count 15.4x10^3/uL (4.0-11.0) Red Blood Count 3.88x10^6/uL (3.50-5.40) Hemoglobin 11.9g/dL (12.0-15.5) Hematocrit 36.1% (36.0-47.0) Mean Corpuscular Volume 93fL (79-100) Mean Corpuscular Hemoglobin 31pg (25-35) Mean Corpuscular Hemoglobin Concent 33g/dL (31-37) Red Cell Distribution Width 13.5% (11.5-14.5) Platelet Count 306x10^3/uL (140-400) Neutrophils (%) (Auto) 88% (31-73) Lymphocytes (%) (Auto) 8% (24-48) Monocytes (%) (Auto) 3% (0-9) Eosinophils (%) (Auto) 0% (0-3) Basophils (%) (Auto) 0% (0-3) Neutrophils # (Auto) 13.6x10^3uL (1.8-7.7) Lymphocytes # (Auto) 1.3x10^3/uL (1.0-4.8) Monocytes # (Auto) 0.4x10^3/uL (0.0-1.1) Eosinophils # (Auto) 0.0x10^3/uL (0.0-0.7) Basophils # (Auto) 0.0x10^3/uL (0.0-0.2) Segmented Neutrophils % 89% (35-66) Lymphocytes % 8% (24-48) Monocytes % 1% (0-10) Eosinophils % 1% (0-5) Basophils % 1% (0-3) Platelet Estimate Adequate (ADEQUATE) Large Platelets Occ Polychromasia Slight Anisocytosis Slight Ovalocytes Occ Sodium Level 139mmol/L (136-145) Potassium Level 3.9mmol/L (3.5-5.1) Chloride Level 104mmol/L (98-107) Carbon Dioxide Level 23mmol/L (21-32) Anion Gap 12 (6-14) Blood Urea Nitrogen 23mg/dL (7-20) Creatinine 0.7mg/dL (0.6-1.0) Estimated GFR (Cockcroft-Gault) 80.1 BUN/Creatinine Ratio 33 (6-20) Glucose Level 197mg/dL (70-99) Calcium Level 8.4mg/dL (8.5-10.1) Total Bilirubin 0.4mg/dL (0.2-1.0) Aspartate Amino Transf (AST/SGOT) 30U/L (15-37) Alanine Aminotransferase (ALT/SGPT) 36U/L (14-59) Alkaline Phosphatase 130U/L (46-116) Troponin I Quantitative < 0.017ng/mL (0.000-0.055) Total Protein 5.4g/dL (6.4-8.2) Albumin 2.3g/dL (3.4-5.0) Albumin/Globulin Ratio 0.7 (1.0-1.7) Test 06/27/16 04:53 06/27/16 06:58 Sodium Level 141mmol/L (136-145) Potassium Level 3.1mmol/L (3.5-5.1) Chloride Level 106mmol/L (98-107) Carbon Dioxide Level 25mmol/L (21-32) Anion Gap 10 (6-14) Blood Urea Nitrogen 22mg/dL (7-20) Creatinine 0.8mg/dL (0.6-1.0) Estimated GFR (Cockcroft-Gault) 68.7 Glucose Level 214mg/dL (70-99) Calcium Level 8.5mg/dL (8.5-10.1) Glucose (Fingerstick) 190mg/dL (70-99) Review of Systems Review of Systems no n.v.d Assessment and Plan Assessmemt and Plan Problems Medical Problems: (1) Fall Status: Acute (2) Fall (on) (from) other stairs and steps, initial encounter Status: Acute (3) Ribs, multiple fractures Status: Acute Problems: Comment Review of Relevant I have reviewed the following items quincy (where applicable) has been applied. Labs Laboratory Tests Test 06/25/16 12:12 06/25/16 16:01 06/25/16 21:08 06/26/16 07:24 Glucose (Fingerstick) 214mg/dL (70-99) 250mg/dL (70-99) 202mg/dL (70-99) 131mg/dL (70-99) Test 06/26/16 11:18 06/26/16 15:20 06/26/16 16:45 06/26/16 21:12 Glucose (Fingerstick) 156mg/dL (70-99) 185mg/dL (70-99) 277mg/dL (70-99) White Blood Count 15.4x10^3/uL (4.0-11.0) Red Blood Count 3.88x10^6/uL (3.50-5.40) Hemoglobin 11.9g/dL (12.0-15.5) Hematocrit 36.1% (36.0-47.0) Mean Corpuscular Volume 93fL (79-100) Mean Corpuscular Hemoglobin 31pg (25-35) Mean Corpuscular Hemoglobin Concent 33g/dL (31-37) Red Cell Distribution Width 13.5% (11.5-14.5) Platelet Count 306x10^3/uL (140-400) Neutrophils (%) (Auto) 88% (31-73) Lymphocytes (%) (Auto) 8% (24-48) Monocytes (%) (Auto) 3% (0-9) Eosinophils (%) (Auto) 0% (0-3) Basophils (%) (Auto) 0% (0-3) Neutrophils # (Auto) 13.6x10^3uL (1.8-7.7) Lymphocytes # (Auto) 1.3x10^3/uL (1.0-4.8) Monocytes # (Auto) 0.4x10^3/uL (0.0-1.1) Eosinophils # (Auto) 0.0x10^3/uL (0.0-0.7) Basophils # (Auto) 0.0x10^3/uL (0.0-0.2) Segmented Neutrophils % 89% (35-66) Lymphocytes % 8% (24-48) Monocytes % 1% (0-10) Eosinophils % 1% (0-5) Basophils % 1% (0-3) Platelet Estimate Adequate (ADEQUATE) Large Platelets Occ Polychromasia Slight Anisocytosis Slight Ovalocytes Occ Sodium Level 139mmol/L (136-145) Potassium Level 3.9mmol/L (3.5-5.1) Chloride Level 104mmol/L (98-107) Carbon Dioxide Level 23mmol/L (21-32) Anion Gap 12 (6-14) Blood Urea Nitrogen 23mg/dL (7-20) Creatinine 0.7mg/dL (0.6-1.0) Estimated GFR (Cockcroft-Gault) 80.1 BUN/Creatinine Ratio 33 (6-20) Glucose Level 197mg/dL (70-99) Calcium Level 8.4mg/dL (8.5-10.1) Total Bilirubin 0.4mg/dL (0.2-1.0) Aspartate Amino Transf (AST/SGOT) 30U/L (15-37) Alanine Aminotransferase (ALT/SGPT) 36U/L (14-59) Alkaline Phosphatase 130U/L (46-116) Troponin I Quantitative < 0.017ng/mL (0.000-0.055) Total Protein 5.4g/dL (6.4-8.2) Albumin 2.3g/dL (3.4-5.0) Albumin/Globulin Ratio 0.7 (1.0-1.7) Test 06/27/16 04:53 06/27/16 06:58 Sodium Level 141mmol/L (136-145) Potassium Level 3.1mmol/L (3.5-5.1) Chloride Level 106mmol/L (98-107) Carbon Dioxide Level 25mmol/L (21-32) Anion Gap 10 (6-14) Blood Urea Nitrogen 22mg/dL (7-20) Creatinine 0.8mg/dL (0.6-1.0) Estimated GFR (Cockcroft-Gault) 68.7 Glucose Level 214mg/dL (70-99) Calcium Level 8.5mg/dL (8.5-10.1) Glucose (Fingerstick) 190mg/dL (70-99) Laboratory Tests Test 06/26/16 11:18 06/26/16 15:20 06/26/16 16:45 06/26/16 21:12 Glucose (Fingerstick) 156mg/dL (70-99) 185mg/dL (70-99) 277mg/dL (70-99) White Blood Count 15.4x10^3/uL (4.0-11.0) Red Blood Count 3.88x10^6/uL (3.50-5.40) Hemoglobin 11.9g/dL (12.0-15.5) Hematocrit 36.1% (36.0-47.0) Mean Corpuscular Volume 93fL (79-100) Mean Corpuscular Hemoglobin 31pg (25-35) Mean Corpuscular Hemoglobin Concent 33g/dL (31-37) Red Cell Distribution Width 13.5% (11.5-14.5) Platelet Count 306x10^3/uL (140-400) Neutrophils (%) (Auto) 88% (31-73) Lymphocytes (%) (Auto) 8% (24-48) Monocytes (%) (Auto) 3% (0-9) Eosinophils (%) (Auto) 0% (0-3) Basophils (%) (Auto) 0% (0-3) Neutrophils # (Auto) 13.6x10^3uL (1.8-7.7) Lymphocytes # (Auto) 1.3x10^3/uL (1.0-4.8) Monocytes # (Auto) 0.4x10^3/uL (0.0-1.1) Eosinophils # (Auto) 0.0x10^3/uL (0.0-0.7) Basophils # (Auto) 0.0x10^3/uL (0.0-0.2) Segmented Neutrophils % 89% (35-66) Lymphocytes % 8% (24-48) Monocytes % 1% (0-10) Eosinophils % 1% (0-5) Basophils % 1% (0-3) Platelet Estimate Adequate (ADEQUATE) Large Platelets Occ Polychromasia Slight Anisocytosis Slight Ovalocytes Occ Sodium Level 139mmol/L (136-145) Potassium Level 3.9mmol/L (3.5-5.1) Chloride Level 104mmol/L (98-107) Carbon Dioxide Level 23mmol/L (21-32) Anion Gap 12 (6-14) Blood Urea Nitrogen 23mg/dL (7-20) Creatinine 0.7mg/dL (0.6-1.0) Estimated GFR (Cockcroft-Gault) 80.1 BUN/Creatinine Ratio 33 (6-20) Glucose Level 197mg/dL (70-99) Calcium Level 8.4mg/dL (8.5-10.1) Total Bilirubin 0.4mg/dL (0.2-1.0) Aspartate Amino Transf (AST/SGOT) 30U/L (15-37) Alanine Aminotransferase (ALT/SGPT) 36U/L (14-59) Alkaline Phosphatase 130U/L (46-116) Troponin I Quantitative < 0.017ng/mL (0.000-0.055) Total Protein 5.4g/dL (6.4-8.2) Albumin 2.3g/dL (3.4-5.0) Albumin/Globulin Ratio 0.7 (1.0-1.7) Test 06/27/16 04:53 06/27/16 06:58 Sodium Level 141mmol/L (136-145) Potassium Level 3.1mmol/L (3.5-5.1) Chloride Level 106mmol/L (98-107) Carbon Dioxide Level 25mmol/L (21-32) Anion Gap 10 (6-14) Blood Urea Nitrogen 22mg/dL (7-20) Creatinine 0.8mg/dL (0.6-1.0) Estimated GFR (Cockcroft-Gault) 68.7 Glucose Level 214mg/dL (70-99) Calcium Level 8.5mg/dL (8.5-10.1) Glucose (Fingerstick) 190mg/dL (70-99) Microbiology 06/10/16 Blood Culture - Final, Complete NO GROWTH AFTER 5 DAYS 06/11/16 Gram Stain - Final, Complete 06/08/16 Urine Culture - Final, Complete 06/08/16 Urine Culture Result 1 (ALEJO) - Final, Complete Medications Current Medications Lidocaine (Lidoderm) 1 patch 1X ONCE TD Last administered on 06/08/16 09:12; Start 06/08/16 at 09:00; Stop 06/08/16 at 09:01; Status DC Acetaminophen (Tylenol) 1,000 mg 1X ONCE PO Last administered on 06/08/16 09: 12; Start 06/08/16 at 09:00; Stop 06/08/16 at 09:01; Status DC Oxycodone/ Acetaminophen (Percocet 5/325) 1 tab 1X ONCE PO Last administered on 06/08/16 10:00; Start 06/08/16 at 10:00; Stop 06/08/16 at 10:01; Status DC Ondansetron HCl (Zofran) 4 mg PRN Q6HRS PRN IV NAUSEA/VOMITING; Start 06/08/16 at 12:00; Stop 06/12/16 at 09:19; Status DC Al Hydrox/Mg Hydrox/Simethicone (Mylanta Plus Xs) 30 ml PRN Q3HRS PRN PO HEARTBURN / GAS; Start 06/08/16 at 12:00; Stop 06/12/16 at 09:19; Status DC Calcium Carbonate/ Glycine (Tums) 500 mg PRN Q3HRS PRN PO UPSET STOMACH; Start 06/08/16 at 12:00; Stop 06/12/16 at 09:19; Status DC Oxycodone HCl (Roxicodone) 5 mg PRN Q3HRS PRN PO BREAKTHROUGH PAIN; Start at 12:00; Stop 06/12/16 at 09:19; Status DC Morphine Sulfate 1 mg PRN Q2HR PRN IV PAIN; Start 06/08/16 at 12:00; Stop at 09:19; Status DC Oxycodone/ Acetaminophen (Percocet 5/325) 1 tab PRN Q4HRS PRN PO MILD PAIN, 1ST CHOICE Last administered on 06/09/16 15:03; Start 06/08/16 at 12:00; Stop 06/12/16 at 09:19; Status DC Docusate Sodium (Colace) 100 mg BID PO ; Start 06/08/16 at 21:00; Status Cancel Magnesium Hydroxide (Milk Of Magnesia) 2,400 mg PRN Q12HR PRN PO CONSTIPATION; Start 06/08/16 at 12:00; Stop 06/12/16 at 09:19; Status DC Lactulose 20 gm PRN Q12HR PRN PO CONSTIPATION; Start 06/08/16 at 12:00; Stop 06/12/16 at 09:19; Status DC Bisacodyl (Dulcolax Supp) 10 mg PRN DAILY PRN AL CONSTIPATION; Start 06/08/16 at 12:00; Stop 06/12/16 at 09:19; Status DC Enoxaparin Sodium (Lovenox 40mg Syringe) 40 mg DAILY16 SQ Last administered on 06/09/16 15:03; Start 06/08/16 at 16:00; Stop 06/10/16 at 12:52; Status DC Lidocaine (Lidoderm) 1 patch DAILY TD Last administered on 06/27/16 09:15; Start 06/08/16 at 13:00 Aspirin (Children'S Aspirin) 81 mg DAILYWBKFT PO Last administered on 09:15; Start 06/08/16 at 13:00 Docusate Sodium (Colace) 100 mg DAILY PO Last administered on 06/27/16 09:15; Start 06/09/16 at 09:00 Fluticasone Propionate (Flonase) 2 spray DAILY NS Last administered on 09:16; Start 06/08/16 at 13:00 Glipizide (Glucotrol Er) 10 mg DAILY08 PO Last administered on 06/27/16 09:15 ; Start 06/08/16 at 13:00 Lisinopril (Prinivil) 5 mg DAILY PO Last administered on 06/27/16 09:16; Start 06/08/16 at 13:00 Calcium/Vitamin D (Oscal D 500mg/ 200uts) 1 tab DAILY PO Last administered on 09:16; Start 06/08/16 at 13:00 Fish Oil (Fish Oil) 1,000 mg DAILY PO Last administered on 06/27/16 09:16; Start 06/08/16 at 13:00 Duloxetine HCl (Cymbalta) 60 mg DAILY PO Last administered on 06/27/16 09:16; Start 06/08/16 at 13:00 Famotidine (Pepcid) 40 mg DAILY PO Last administered on 06/09/16 07:40; Start 06/08/16 at 13:00; Stop 06/10/16 at 11:55; Status DC Multivitamins/ Calcium (Thera M Plus) 1 tab DAILY PO Last administered on 09:16; Start 06/08/16 at 13:00 Atorvastatin Calcium (Lipitor) 20 mg QHS PO Last administered on 06/26/16 21: 31; Start 06/08/16 at 21:00 Insulin Aspart (Novolog) 0-9 UNITS TIDWMEALS SQ Last administered on 06/13/16 17:49; Start 06/08/16 at 12:30; Stop 06/13/16 at 20:54; Status DC Dextrose 12.5 gm PRN Q15MIN PRN IV SEE COMMENTS; Start 06/08/16 at 12:15 Ondansetron HCl 4 mg 4 mg PRN Q8HRS PRN IV NAUSEA/VOMITING; Start 06/08/16 at 12 :45; Stop 06/09/16 at 12:44; Status DC Piperacillin Sod/ Tazobactam Sod/ Sodium Chloride (Zosyn/Iv Sodium Chloride 0.9 % 50ml) 50 ml @ 100 mls/hr Q6HRS IV Last administered on 06/17/16 12:28; Start 06/10/16 at 12:00; Stop 06/17/16 at 13:13; Status DC Pantoprazole Sodium 40 mg 40 mg DAILYAC IVP Last administered on 06/27/16 09: 15; Start 06/10/16 at 11:00 Amino Acids/ Electrolytes/ Dextrose 1,000 ml @ 75 mls/hr [id number] PRN IV . Last administered on 06/14/16 20:34; Start 06/10/16 at 11:00; Stop 06/15/16 at 21:59; Status DC Sodium Chloride (Iv Sodium Chloride 0.9% 1000ml Bag) 1,000 ml @ 50 mls/hr Q20H IV Last administered on 06/24/16 05:04; Start 06/10/16 at 11:00; Stop 06/24/16 at 14:37; Status DC Naloxone HCl (Narcan) 0.4 mg PRN Q2MIN PRN IV SEE COMMENTS; Start 06/10/16 at 11 :30 Naloxone HCl 0.4 mg 0.4 mg 1X ONCE IV Last administered on 06/10/16 12:07; Start 06/10/16 at 12:00; Stop 06/10/16 at 12:01; Status DC Daptomycin 500 mg/ Sodium Chloride 50 ml @ 100 mls/hr Q24H IV Last administered on 06/10/16 14:56; Start 06/10/16 at 14:00; Stop 06/10/16 at 18:00; Status DC Metronidazole (FLAGYL 500Mmg PREMIX) 100 ml @ 100 mls/hr Q8H IV Last administered on 06/12/16 08:08; Start 06/10/16 at 16:00; Stop 06/12/16 at 09:07; Status DC Lorazepam (Ativan) 1 mg PRN Q4HRS PRN IV ANXIETY / AGITATION Last administered on 06/10/16 17:28; Start 06/10/16 at 17:00; Stop 06/12/16 at 09:19; Status DC Flumazenil 0.1 mg 0.1 mg 1X ONCE IV Last administered on 06/11/16 15:15; Start 06/11/16 at 14:30; Stop 06/11/16 at 14:33; Status DC Acyclovir Sodium/ Dextrose (Zovirax) 262.4 ml @ 262.4 mls/ hr Q8HRS IV Last administered on 06/17/16 05:10; Start 06/13/16 at 09:00; Stop 06/17/16 at 13:13 ; Status DC Alteplase, Recombinant (Cathflo) 2 mg 1X ONCE INT CAT Last administered on 06/13 16:14; Start 06/13/16 at 15:00; Stop 06/13/16 at 15:01; Status DC Insulin Aspart (Novolog) 0-9 UNITS QIDACHS SQ Last administered on 06/22/16 12 :20; Start 06/13/16 at 21:00; Stop 06/22/16 at 13:37; Status DC Info 1 each 1 each PRN DAILY PRN MC SEE COMMENTS Last administered on 13:13; Start 06/15/16 at 11:00 Sodium Chloride/ Potassium Chloride/ Potassium Phosphate/ Magnesium Sulfate/ Calcium Gluconate/ Multivitamins/ Chromium/Copper/ Manganese/Seleni/ Zn/Total Parenteral Nutrition/Amino Acids/Dextrose/ Fat Emulsion Intravenous (Sodium Chloride/ Potassium Phospha... 1,512 ml @ 63 mls/hr TPN CONT IV Last administered on 06/15/16 21:21; Start 06/15/16 at 22:00; Stop 06/16/16 at 21:59 ; Status DC Saliva Substitute 2 spray 2 spray PRN Q15MIN PRN PO DRY MOUTH; Start 06/16/16 at 11:15 Sodium Chloride/ Potassium Chloride/ Potassium Phosphate/ Magnesium Sulfate/ Calcium Gluconate/ Multivitamins/ Chromium/Copper/ Manganese/Seleni/ Zn/Total Parenteral Nutrition/Amino Acids/Dextrose/ Fat Emulsion Intravenous (Sodium Chloride/ Potassium Phospha... 1,512 ml @ 63 mls/hr TPN CONT IV Last administered on 06/16/16 22:11; Start 06/16/16 at 22:00; Stop 06/17/16 at 21:59 ; Status DC Insulin Detemir (Levemir) 8 units 1X ONCE SQ ; Start 06/16/16 at 15:00; Stop at 15:00; Status DC Insulin Detemir 12 units 12 units 1X ONCE SQ Last administered on 06/16/16 16 :31; Start 06/16/16 at 15:30; Stop 06/16/16 at 15:31; Status DC Sodium Chloride/ Potassium Chloride/ Potassium Phosphate/ Magnesium Sulfate/ Calcium Gluconate/ Multivitamins/ Chromium/Copper/ Manganese/Seleni/ Zn/Total Parenteral Nutrition/Amino Acids/Dextrose/ Fat Emulsion Intravenous (Sodium Chloride/ Potassium Phospha... 1,512 ml @ 63 mls/hr TPN CONT IV Last administered on 06/17/16 22:01; Start 06/17/16 at 22:00; Stop 06/18/16 at 21:59 ; Status DC Methylprednisolone Sodium Succinate 125 mg 125 mg 1X ONCE IV Last administered on 06/18/16 10:53; Start 06/18/16 at 09:45; Stop 06/18/16 at 09:46 ; Status DC Sodium Chloride 90 meq/Potassium Chloride 40 meq/ Potassium Phosphate 13.6 mmol/ Magnesium Sulfate 10 meq/ Calcium Gluconate 5 meq/ Multivitamins 10 ml/Chromium / Copper/Manganese/ Seleni/Zn 1 ml/ Total Parenteral Nutrition/Amino Acids/ Dextrose/ Fat Emulsion Intravenous 1,512 ml @ 63 mls/hr TPN CONT IV Last administered on 06/18/16 21:16; Start 06/18/16 at 22:00; Stop 06/19/16 at 21:59 ; Status DC Sodium Chloride/ Potassium Chloride/ Potassium Phosphate/ Magnesium Sulfate/ Calcium Gluconate/ Multivitamins/ Chromium/Copper/ Manganese/Seleni/ Zn/Total Parenteral Nutrition/Amino Acids/Dextrose/ Fat Emulsion Intravenous (Sodium Chloride/ Potassium Phospha... 1,512 ml @ 63 mls/hr TPN CONT IV Last administered on 06/19/16 20:42; Start 06/19/16 at 22:00; Stop 06/20/16 at 21:59 ; Status DC Methylprednisolone Sodium Succinate (Solu-Medrol 40mg Vial) 40 mg Q8HRS IV Last administered on 06/22/16 06:02; Start 06/19/16 at 14:00; Stop 06/22/16 at 13:13; Status DC Barium Sulfate 148 gm 148 gm 1X ONCE PO Last administered on 06/19/16 11:30; Start 06/19/16 at 11:30; Stop 06/19/16 at 11:32; Status DC Sodium Chloride/ Potassium Phosphate/ Magnesium Sulfate/ Calcium Gluconate/ Multivitamins/ Chromium/Copper/ Manganese/Seleni/ Zn/Total Parenteral Nutrition/ Amino Acids/Dextrose/ Fat Emulsion Intravenous (Sodium Chloride/ Potassium Phosphate/ Infuvite Adult/ Multitrace-5 Co... 1,512 ml @ 63 mls/hr TPN CONT IV Last administered on 06/20/16 21:57; Start 06/20/16 at 22:00; Stop at 21:59; Status DC Insulin Detemir 12 units 12 units QHS SQ Last administered on 06/20/16 22:01; Start 06/20/16 at 21:00; Stop 06/21/16 at 20:10; Status DC Sodium Chloride/ Potassium Phosphate/ Magnesium Sulfate/ Calcium Gluconate/ Multivitamins/ Chromium/Copper/ Manganese/Seleni/ Zn/Insulin Human Regular/ Total Parenteral Nutrition/Amino Acids/Dextrose/ Fat Emulsion Intravenous ( Sodium Chloride/ Potassium Phosphate/ Infuvite Sam... 1,512 ml @ 63 mls/hr TPN CONT IV Last administered on 06/21/16 21:22; Start 06/21/16 at 22:00; Stop 06/22/16 at 21:59; Status DC Insulin Detemir 20 units 20 units QHS SQ Last administered on 06/23/16 21:18; Start 06/21/16 at 21:00; Stop 06/24/16 at 14:37; Status DC Sodium Chloride/ Potassium Phosphate/ Magnesium Sulfate/ Calcium Gluconate/ Multivitamins/ Chromium/Copper/ Manganese/Seleni/ Zn/Insulin Human Regular/ Total Parenteral Nutrition/Amino Acids/Dextrose/ Fat Emulsion Intravenous ( Sodium Chloride/ Potassium Phosphate/ Infuvite Sam... 1,512 ml @ 63 mls/hr TPN CONT IV Last administered on 06/22/16 20:32; Start 06/22/16 at 22:00; Stop 06/23/16 at 21:59; Status DC Methylprednisolone Sodium Succinate (Solu-Medrol 40mg Vial) 40 mg Q12HR IV Last administered on 06/23/16 08:46; Start 06/22/16 at 21:00; Stop 06/23/16 at 16:47; Status DC Methylprednisolone Sodium Succinate (Solu-Medrol 40mg Vial) 20 mg Q12HR IV ; Start 06/25/16 at 09:00; Stop 06/25/16 at 09:00; Status DC Insulin Aspart (Novolog) 0-12 UNITS QIDACHS SQ Last administered on 06/27/16 09:26; Start 06/22/16 at 16:30 Alteplase, Recombinant 2 mg 2 mg 1X ONCE INT CAT Last administered on 08:49; Start 06/23/16 at 07:00; Stop 06/23/16 at 07:01; Status DC Sodium Chloride/ Potassium Phosphate/ Magnesium Sulfate/ Calcium Gluconate/ Multivitamins/ Chromium/Copper/ Manganese/Seleni/ Zn/Insulin Human Regular/ Total Parenteral Nutrition/Amino Acids/Dextrose/ Fat Emulsion Intravenous ( Sodium Chloride/ Potassium Phosphate/ Infuvite Sam... 1,512 ml @ 63 mls/hr TPN CONT IV Last administered on 06/23/16 21:19; Start 06/23/16 at 22:00; Stop 06/24/16 at 21:59; Status DC Methylprednisolone Sodium Succinate (Solu-Medrol 40mg Vial) 40 mg Q12HR IV Last administered on 06/23/16 21:11; Start 06/23/16 at 21:00; Stop 06/23/16 at 23:00; Status DC Methylprednisolone Sodium Succinate (Solu-Medrol 40mg Vial) 20 mg Q12HR IV Last administered on 06/24/16 22:05; Start 06/24/16 at 09:00; Stop 06/24/16 at 21:01; Status DC Methylprednisolone Sodium Succinate (Solu-Medrol 40mg Vial) 20 mg 1X ONCE IV Last administered on 06/25/16 09:13; Start 06/25/16 at 09:00; Stop 06/25/16 at 09:01; Status DC Methylprednisolone Sodium Succinate 10 mg 10 mg 1X ONCE IV Last administered on 06/26/16 08:52; Start 06/26/16 at 09:00; Stop 06/26/16 at 09:01; Status DC Sodium Chloride/ Potassium Phosphate/ Magnesium Sulfate/ Calcium Gluconate/ Multivitamins/ Chromium/Copper/ Manganese/Seleni/ Zn/Insulin Human Regular/ Total Parenteral Nutrition/Amino Acids/Dextrose/ Fat Emulsion Intravenous ( Sodium Chloride/ Potassium Phosphate/ Infuvite Sam... 1,512 ml @ 63 mls/hr TPN CONT IV Last administered on 06/24/16 22:10; Start 06/24/16 at 22:00; Stop 06/25/16 at 21:59; Status DC Insulin Detemir 25 units 25 units QHS SQ Last administered on 06/26/16 21:36; Start 06/24/16 at 21:00 Sodium Chloride 90 meq/Potassium Phosphate 13.6 mmol/Magnesium Sulfate 10 meq/ Calcium Gluconate 5 meq/ Multivitamins 10 ml/Chromium/ Copper/Manganese/ Seleni/ Zn 1 ml/ Insulin Human Regular 10 unit/ Total Parenteral Nutrition/Amino Acids/ Dextrose/ Fat Emulsion Intravenous 1,512 ml @ 63 mls/hr TPN CONT IV Last administered on 06/25/16 22:18; Start 06/25/16 at 22:00; Stop 06/26/16 at 21:59 ; Status DC Sodium Chloride/ Potassium Phosphate/ Magnesium Sulfate/ Calcium Gluconate/ Multivitamins/ Chromium/Copper/ Manganese/Seleni/ Zn/Insulin Human Regular/ Total Parenteral Nutrition/Amino Acids/Dextrose/ Fat Emulsion Intravenous ( Sodium Chloride/ Potassium Phosphate/ Infuvite Sam... 1,512 ml @ 63 mls/hr TPN CONT IV Last administered on 06/26/16 22:54; Start 06/26/16 at 22:00; Stop 06/27/16 at 21:59 Barium Sulfate (Varibar Thin Liquid Apple) 148 gm 1X ONCE PO Last administered on 06/26/16 14:00; Start 06/26/16 at 14:00; Stop 06/26/16 at 14:01 ; Status DC Active Scripts Active Ciprofloxacin 250 Mg/5 Ml Christina.mc.rec 250 Mg PO BID Children's Aspirin (Aspirin) 81 Mg Tab.chew 81 Mg PO DAILYWBKFT 30 Days Glipizide Er (Glipizide) 5 Mg Tab.er.24 10 Mg PO DAILY Reported Pravachol (Pravastatin Sodium) 80 Mg Tablet 80 Mg PO DAILY Multi-Vitamin Daily (Multivitamin) 1 Each Tablet 1 Each PO DAILY Lisinopril 5 Mg Tablet 5 Mg PO DAILY Flonase (Fluticasone Propionate) 16 Gm [place].susp 2 [place] NS DAILY Famotidine 40 Mg Tablet 40 Mg PO DAILY Cymbalta (Duloxetine Hcl) 60 Mg Capsule.dr 60 Mg PO DAILY Docusate Sodium 100 Mg Capsule 100 Mg PO DAILY Fish Oil Concentrate Softgel (Docosahexanoic Acid/Epa) 1 Each Capsule 1 Each PO DAILY Caltrate 600 + D Tablet (Calcium Carbonate/Vitamin D3) 1 Each Tablet 1 Each PO DAILY Vitals/I & O Vital Sign - Last 24 Hours 06/26/16 06/26/16 06/26/16 06/26/16 11:00 14:57 19:15 20:00 Temp 97.4 97.6 98.1 97.4 97.6 98.1 Pulse 72 61 67 Resp 16 16 18 B/P 111/50 127/55 124/47 Pulse Ox 97 96 94 O2 Delivery Room Air Room Air Room Air Room Air 06/26/16 06/27/16 06/27/16 06/27/16 23:10 03:02 07:00 07:30 Temp 98.5 98.4 97.7 98.5 98.4 97.7 Pulse 57 56 63 Resp 18 B/P 125/55 139/57 183/61 Pulse Ox 95 96 97 O2 Delivery Room Air Room Air Room Air Room Air 06/27/16 09:16 Pulse 63 B/P 183/61 Intake and Output 06/26/16 06/26/16 06/27/16 15:00 23:00 07:00 Intake Total 1300 ml 600 ml Balance 1300 ml 600 ml TAI CELESTE MD Jun 27, 2016 10:51
--- NOTE | 2016-06-27 10:58 | CARD ---
APPROVED REPORT EXAM: Two-dimensional and M-mode echocardiogram with Doppler and color Doppler. Other Information Quality : Average Rhythm : NSR INDICATION Syncope 2D DIMENSIONS RVDd3.5 (2.9-3.5cm)Left Atrium(2D)3.3 (1.6-4.0cm) IVSd1.0 (0.7-1.1cm)Aortic Root(2D)3.2 (2.0-3.7cm) LVDd4.3 (3.9-5.9cm)LVOT Diameter2.2 (1.8-2.4cm) PWd1.0 (0.7-1.1cm)LVDs2.9 (2.5-4.0cm) FS (%) 32.8 %SV50.2 ml LVEF(%)60.5 (>50%) Aortic Valve AoV Peak Ha.107.7cm/sAoV VTI22.2cm AO Peak GR.4.6mmHgLVOT VTI 22.88cm AO Mean GR.3mmHgAVA (VTI)4.00cm2 Mitral Valve MV E Czqswrtv82.5cm/sMV E Peak Gr.3mmHg MV DECEL [id number] A Ngjilsyt99.8cm/s MV E Mean Gr.1mmHgMV RCF90ek E/A Ratio0.6MV A Qloqthle645jy MVA (PHT)2.89cm2 TDI Lateral E' P. V7.80cm/sMedial E' P. V6.81cm/s E/Lateral E'7.1E/Medial E'8.1 Tricuspid Valve TR P. Traagria560iu/sRAP PUCGPXSU3toMx TR Peak Gr.41lgXbUMKE90kcAv Pulmonary Vein S1 Juzoxmyq33.3cm/sS2 Ulanrzsk78.04cm/s D2 Odetgstz80.0cm/sPVa [id number] LEFT VENTRICLE The left ventricle is normal size. There is normal left ventricular wall thickness. Left ventricle sy stolic function is normal. The Ejection Fraction is 55-60%. There is normal LV segmental wall motion. Tissue Doppler imaging reveals mild left ventricular diastolic dysfunction. RIGHT VENTRICLE The right ventricle is normal size. The right ventricular systolic function is normal. ATRIA The left atrium size is normal. The right atrium size is normal. The interatrial septum is intact wit h no evidence for an atrial septal defect or patent foramen ovale as noted on 2-D or Doppler imaging. AORTIC VALVE The aortic valve is normal in structure and function. The aortic valve is trileaflet. Doppler and Col or Flow revealed no significant aortic regurgitation. There is no significant aortic valvular stenosi s. MITRAL VALVE The mitral valve is normal in structure and function. There is no mitral valve stenosis. Doppler and Color Flow revealed trace mitral regurgitation. TRICUSPID VALVE The tricuspid valve is normal in structure and function. Doppler and Color Flow revealed mild tricusp id regurgitation. The PA pressure was estimated at 30 mmHg. There is no tricuspid valve stenosis. PULMONIC VALVE The pulmonic valve is not well visualized. Doppler and Color Flow revealed no pulmonic valvular regur gitation. There is no pulmonic valvular stenosis. GREAT VESSELS The aortic root is normal in size. Pulmonary veins not recorded. The IVC is normal in size and collap ses >50% with inspiration. PERICARDIAL EFFUSION There is no evidence of significant pericardial effusion. Critical Notification Critical Value: No <Conclusion> Left ventricle systolic function is normal. The Ejection Fraction is 55-60%. There is normal LV segmental wall motion. Tissue Doppler imaging reveals mild left ventricular diastolic dysfunction.
[2016-06-27 11:00] VITALS: BP 168/58
[2016-06-27] MEDS: POTASSIUM CHLORIDE 20 MEQ TABLET.ER. PO ONE (11:00)
--- NOTE | 2016-06-27 11:03 | PDOC ---
PROGRESS NOTES Assessment Problems Medical Problems: (1) Fall Status: Acute (2) Fall (on) (from) other stairs and steps, initial encounter Status: Acute (3) Ribs, multiple fractures Status: Acute Metabolic encephalopathy. No sign of HSV encephalitis Dysphagia, improved, negative brain MRI Prior dementia? Plan Feeding trial SNU Subjective no complaints, eating Objective Vital Signs Date Time Temp Pulse Resp B/P Pulse Ox O2 Delivery O2 Flow Rate FiO2 06/27/16 09:16 63 183/61 06/27/16 07:30 Room Air 06/27/16 07:00 97.7 18 97 97.7 Intake and Output 06/27/16 07:00 Intake Total 1900 ml Balance 1900 ml Intake Oral 600 ml IV Total 1300 ml # Voids 12 # Bowel Movements 2 PHYSICAL EXAM Alert. Knows location, person, date PERRL. EOMI. CN: no focal findings. Muscle tone: normal. Muscle strength: 4/5 DTR: 1+ Plantar reflex: flexor Gait: not examined in bed. Sensory exam: no abnormal findings. No cerebellar signs elicited. Review of Relevant I have reviewed the following items quincy (where applicable) has been applied. Labs Laboratory Tests Test 06/25/16 12:12 06/25/16 16:01 06/25/16 21:08 06/26/16 07:24 Glucose (Fingerstick) 214mg/dL (70-99) 250mg/dL (70-99) 202mg/dL (70-99) 131mg/dL (70-99) Test 06/26/16 11:18 06/26/16 15:20 06/26/16 16:45 06/26/16 21:12 Glucose (Fingerstick) 156mg/dL (70-99) 185mg/dL (70-99) 277mg/dL (70-99) White Blood Count 15.4x10^3/uL (4.0-11.0) Red Blood Count 3.88x10^6/uL (3.50-5.40) Hemoglobin 11.9g/dL (12.0-15.5) Hematocrit 36.1% (36.0-47.0) Mean Corpuscular Volume 93fL (79-100) Mean Corpuscular Hemoglobin 31pg (25-35) Mean Corpuscular Hemoglobin Concent 33g/dL (31-37) Red Cell Distribution Width 13.5% (11.5-14.5) Platelet Count 306x10^3/uL (140-400) Neutrophils (%) (Auto) 88% (31-73) Lymphocytes (%) (Auto) 8% (24-48) Monocytes (%) (Auto) 3% (0-9) Eosinophils (%) (Auto) 0% (0-3) Basophils (%) (Auto) 0% (0-3) Neutrophils # (Auto) 13.6x10^3uL (1.8-7.7) Lymphocytes # (Auto) 1.3x10^3/uL (1.0-4.8) Monocytes # (Auto) 0.4x10^3/uL (0.0-1.1) Eosinophils # (Auto) 0.0x10^3/uL (0.0-0.7) Basophils # (Auto) 0.0x10^3/uL (0.0-0.2) Segmented Neutrophils % 89% (35-66) Lymphocytes % 8% (24-48) Monocytes % 1% (0-10) Eosinophils % 1% (0-5) Basophils % 1% (0-3) Platelet Estimate Adequate (ADEQUATE) Large Platelets Occ Polychromasia Slight Anisocytosis Slight Ovalocytes Occ Sodium Level 139mmol/L (136-145) Potassium Level 3.9mmol/L (3.5-5.1) Chloride Level 104mmol/L (98-107) Carbon Dioxide Level 23mmol/L (21-32) Anion Gap 12 (6-14) Blood Urea Nitrogen 23mg/dL (7-20) Creatinine 0.7mg/dL (0.6-1.0) Estimated GFR (Cockcroft-Gault) 80.1 BUN/Creatinine Ratio 33 (6-20) Glucose Level 197mg/dL (70-99) Calcium Level 8.4mg/dL (8.5-10.1) Total Bilirubin 0.4mg/dL (0.2-1.0) Aspartate Amino Transf (AST/SGOT) 30U/L (15-37) Alanine Aminotransferase (ALT/SGPT) 36U/L (14-59) Alkaline Phosphatase 130U/L (46-116) Troponin I Quantitative < 0.017ng/mL (0.000-0.055) Total Protein 5.4g/dL (6.4-8.2) Albumin 2.3g/dL (3.4-5.0) Albumin/Globulin Ratio 0.7 (1.0-1.7) Test 06/27/16 04:53 06/27/16 06:58 Sodium Level 141mmol/L (136-145) Potassium Level 3.1mmol/L (3.5-5.1) Chloride Level 106mmol/L (98-107) Carbon Dioxide Level 25mmol/L (21-32) Anion Gap 10 (6-14) Blood Urea Nitrogen 22mg/dL (7-20) Creatinine 0.8mg/dL (0.6-1.0) Estimated GFR (Cockcroft-Gault) 68.7 Glucose Level 214mg/dL (70-99) Calcium Level 8.5mg/dL (8.5-10.1) Glucose (Fingerstick) 190mg/dL (70-99) Laboratory Tests Test 06/26/16 11:18 06/26/16 15:20 06/26/16 16:45 06/26/16 21:12 Glucose (Fingerstick) 156mg/dL (70-99) 185mg/dL (70-99) 277mg/dL (70-99) White Blood Count 15.4x10^3/uL (4.0-11.0) Red Blood Count 3.88x10^6/uL (3.50-5.40) Hemoglobin 11.9g/dL (12.0-15.5) Hematocrit 36.1% (36.0-47.0) Mean Corpuscular Volume 93fL (79-100) Mean Corpuscular Hemoglobin 31pg (25-35) Mean Corpuscular Hemoglobin Concent 33g/dL (31-37) Red Cell Distribution Width 13.5% (11.5-14.5) Platelet Count 306x10^3/uL (140-400) Neutrophils (%) (Auto) 88% (31-73) Lymphocytes (%) (Auto) 8% (24-48) Monocytes (%) (Auto) 3% (0-9) Eosinophils (%) (Auto) 0% (0-3) Basophils (%) (Auto) 0% (0-3) Neutrophils # (Auto) 13.6x10^3uL (1.8-7.7) Lymphocytes # (Auto) 1.3x10^3/uL (1.0-4.8) Monocytes # (Auto) 0.4x10^3/uL (0.0-1.1) Eosinophils # (Auto) 0.0x10^3/uL (0.0-0.7) Basophils # (Auto) 0.0x10^3/uL (0.0-0.2) Segmented Neutrophils % 89% (35-66) Lymphocytes % 8% (24-48) Monocytes % 1% (0-10) Eosinophils % 1% (0-5) Basophils % 1% (0-3) Platelet Estimate Adequate (ADEQUATE) Large Platelets Occ Polychromasia Slight Anisocytosis Slight Ovalocytes Occ Sodium Level 139mmol/L (136-145) Potassium Level 3.9mmol/L (3.5-5.1) Chloride Level 104mmol/L (98-107) Carbon Dioxide Level 23mmol/L (21-32) Anion Gap 12 (6-14) Blood Urea Nitrogen 23mg/dL (7-20) Creatinine 0.7mg/dL (0.6-1.0) Estimated GFR (Cockcroft-Gault) 80.1 BUN/Creatinine Ratio 33 (6-20) Glucose Level 197mg/dL (70-99) Calcium Level 8.4mg/dL (8.5-10.1) Total Bilirubin 0.4mg/dL (0.2-1.0) Aspartate Amino Transf (AST/SGOT) 30U/L (15-37) Alanine Aminotransferase (ALT/SGPT) 36U/L (14-59) Alkaline Phosphatase 130U/L (46-116) Troponin I Quantitative < 0.017ng/mL (0.000-0.055) Total Protein 5.4g/dL (6.4-8.2) Albumin 2.3g/dL (3.4-5.0) Albumin/Globulin Ratio 0.7 (1.0-1.7) Test 06/27/16 04:53 06/27/16 06:58 Sodium Level 141mmol/L (136-145) Potassium Level 3.1mmol/L (3.5-5.1) Chloride Level 106mmol/L (98-107) Carbon Dioxide Level 25mmol/L (21-32) Anion Gap 10 (6-14) Blood Urea Nitrogen 22mg/dL (7-20) Creatinine 0.8mg/dL (0.6-1.0) Estimated GFR (Cockcroft-Gault) 68.7 Glucose Level 214mg/dL (70-99) Calcium Level 8.5mg/dL (8.5-10.1) Glucose (Fingerstick) 190mg/dL (70-99) Microbiology 06/10/16 Blood Culture - Final, Complete NO GROWTH AFTER 5 DAYS 06/11/16 Gram Stain - Final, Complete 06/08/16 Urine Culture - Final, Complete 06/08/16 Urine Culture Result 1 (ALEJO) - Final, Complete Medications Current Medications Lidocaine (Lidoderm) 1 patch 1X ONCE TD Last administered on 06/08/16 09:12; Start 06/08/16 at 09:00; Stop 06/08/16 at 09:01; Status DC Acetaminophen (Tylenol) 1,000 mg 1X ONCE PO Last administered on 06/08/16 09: 12; Start 06/08/16 at 09:00; Stop 06/08/16 at 09:01; Status DC Oxycodone/ Acetaminophen (Percocet 5/325) 1 tab 1X ONCE PO Last administered on 06/08/16 10:00; Start 06/08/16 at 10:00; Stop 06/08/16 at 10:01; Status DC Ondansetron HCl (Zofran) 4 mg PRN Q6HRS PRN IV NAUSEA/VOMITING; Start 06/08/16 at 12:00; Stop 06/12/16 at 09:19; Status DC Al Hydrox/Mg Hydrox/Simethicone (Mylanta Plus Xs) 30 ml PRN Q3HRS PRN PO HEARTBURN / GAS; Start 06/08/16 at 12:00; Stop 06/12/16 at 09:19; Status DC Calcium Carbonate/ Glycine (Tums) 500 mg PRN Q3HRS PRN PO UPSET STOMACH; Start 06/08/16 at 12:00; Stop 06/12/16 at 09:19; Status DC Oxycodone HCl (Roxicodone) 5 mg PRN Q3HRS PRN PO BREAKTHROUGH PAIN; Start at 12:00; Stop 06/12/16 at 09:19; Status DC Morphine Sulfate 1 mg PRN Q2HR PRN IV PAIN; Start 06/08/16 at 12:00; Stop at 09:19; Status DC Oxycodone/ Acetaminophen (Percocet 5/325) 1 tab PRN Q4HRS PRN PO MILD PAIN, 1ST CHOICE Last administered on 06/09/16 15:03; Start 06/08/16 at 12:00; Stop 06/12/16 at 09:19; Status DC Docusate Sodium (Colace) 100 mg BID PO ; Start 06/08/16 at 21:00; Status Cancel Magnesium Hydroxide (Milk Of Magnesia) 2,400 mg PRN Q12HR PRN PO CONSTIPATION; Start 06/08/16 at 12:00; Stop 06/12/16 at 09:19; Status DC Lactulose 20 gm PRN Q12HR PRN PO CONSTIPATION; Start 06/08/16 at 12:00; Stop 06/12/16 at 09:19; Status DC Bisacodyl (Dulcolax Supp) 10 mg PRN DAILY PRN GA CONSTIPATION; Start 06/08/16 at 12:00; Stop 06/12/16 at 09:19; Status DC Enoxaparin Sodium (Lovenox 40mg Syringe) 40 mg DAILY16 SQ Last administered on 06/09/16 15:03; Start 06/08/16 at 16:00; Stop 06/10/16 at 12:52; Status DC Lidocaine (Lidoderm) 1 patch DAILY TD Last administered on 06/27/16 09:15; Start 06/08/16 at 13:00 Aspirin (Children'S Aspirin) 81 mg DAILYWBKFT PO Last administered on 09:15; Start 06/08/16 at 13:00 Docusate Sodium (Colace) 100 mg DAILY PO Last administered on 06/27/16 09:15; Start 06/09/16 at 09:00 Fluticasone Propionate (Flonase) 2 spray DAILY NS Last administered on 09:16; Start 06/08/16 at 13:00 Glipizide (Glucotrol Er) 10 mg DAILY08 PO Last administered on 06/27/16 09:15 ; Start 06/08/16 at 13:00 Lisinopril (Prinivil) 5 mg DAILY PO Last administered on 06/27/16 09:16; Start 06/08/16 at 13:00 Calcium/Vitamin D (Oscal D 500mg/ 200uts) 1 tab DAILY PO Last administered on 09:16; Start 06/08/16 at 13:00 Fish Oil (Fish Oil) 1,000 mg DAILY PO Last administered on 06/27/16 09:16; Start 06/08/16 at 13:00 Duloxetine HCl (Cymbalta) 60 mg DAILY PO Last administered on 06/27/16 09:16; Start 06/08/16 at 13:00 Famotidine (Pepcid) 40 mg DAILY PO Last administered on 06/09/16 07:40; Start 06/08/16 at 13:00; Stop 06/10/16 at 11:55; Status DC Multivitamins/ Calcium (Thera M Plus) 1 tab DAILY PO Last administered on 09:16; Start 06/08/16 at 13:00 Atorvastatin Calcium (Lipitor) 20 mg QHS PO Last administered on 06/26/16 21: 31; Start 06/08/16 at 21:00 Insulin Aspart (Novolog) 0-9 UNITS TIDWMEALS SQ Last administered on 06/13/16 17:49; Start 06/08/16 at 12:30; Stop 06/13/16 at 20:54; Status DC Dextrose 12.5 gm PRN Q15MIN PRN IV SEE COMMENTS; Start 06/08/16 at 12:15 Ondansetron HCl 4 mg 4 mg PRN Q8HRS PRN IV NAUSEA/VOMITING; Start 06/08/16 at 12 :45; Stop 06/09/16 at 12:44; Status DC Piperacillin Sod/ Tazobactam Sod/ Sodium Chloride (Zosyn/Iv Sodium Chloride 0.9 % 50ml) 50 ml @ 100 mls/hr Q6HRS IV Last administered on 06/17/16 12:28; Start 06/10/16 at 12:00; Stop 06/17/16 at 13:13; Status DC Pantoprazole Sodium 40 mg 40 mg DAILYAC IVP Last administered on 06/27/16 09: 15; Start 06/10/16 at 11:00 Amino Acids/ Electrolytes/ Dextrose 1,000 ml @ 75 mls/hr [id number] PRN IV . Last administered on 06/14/16 20:34; Start 06/10/16 at 11:00; Stop 06/15/16 at 21:59; Status DC Sodium Chloride (Iv Sodium Chloride 0.9% 1000ml Bag) 1,000 ml @ 50 mls/hr Q20H IV Last administered on 06/24/16 05:04; Start 06/10/16 at 11:00; Stop 06/24/16 at 14:37; Status DC Naloxone HCl (Narcan) 0.4 mg PRN Q2MIN PRN IV SEE COMMENTS; Start 06/10/16 at 11 :30 Naloxone HCl 0.4 mg 0.4 mg 1X ONCE IV Last administered on 06/10/16 12:07; Start 06/10/16 at 12:00; Stop 06/10/16 at 12:01; Status DC Daptomycin 500 mg/ Sodium Chloride 50 ml @ 100 mls/hr Q24H IV Last administered on 06/10/16 14:56; Start 06/10/16 at 14:00; Stop 06/10/16 at 18:00; Status DC Metronidazole (FLAGYL 500Mmg PREMIX) 100 ml @ 100 mls/hr Q8H IV Last administered on 06/12/16 08:08; Start 06/10/16 at 16:00; Stop 06/12/16 at 09:07; Status DC Lorazepam (Ativan) 1 mg PRN Q4HRS PRN IV ANXIETY / AGITATION Last administered on 06/10/16 17:28; Start 06/10/16 at 17:00; Stop 06/12/16 at 09:19; Status DC Flumazenil 0.1 mg 0.1 mg 1X ONCE IV Last administered on 06/11/16 15:15; Start 06/11/16 at 14:30; Stop 06/11/16 at 14:33; Status DC Acyclovir Sodium/ Dextrose (Zovirax) 262.4 ml @ 262.4 mls/ hr Q8HRS IV Last administered on 06/17/16 05:10; Start 06/13/16 at 09:00; Stop 06/17/16 at 13:13 ; Status DC Alteplase, Recombinant (Cathflo) 2 mg 1X ONCE INT CAT Last administered on 06/13 16:14; Start 06/13/16 at 15:00; Stop 06/13/16 at 15:01; Status DC Insulin Aspart (Novolog) 0-9 UNITS QIDACHS SQ Last administered on 06/22/16 12 :20; Start 06/13/16 at 21:00; Stop 06/22/16 at 13:37; Status DC Info 1 each 1 each PRN DAILY PRN MC SEE COMMENTS Last administered on 13:13; Start 06/15/16 at 11:00; Stop 06/27/16 at 10:52; Status DC Sodium Chloride/ Potassium Chloride/ Potassium Phosphate/ Magnesium Sulfate/ Calcium Gluconate/ Multivitamins/ Chromium/Copper/ Manganese/Seleni/ Zn/Total Parenteral Nutrition/Amino Acids/Dextrose/ Fat Emulsion Intravenous (Sodium Chloride/ Potassium Phospha... 1,512 ml @ 63 mls/hr TPN CONT IV Last administered on 06/15/16 21:21; Start 06/15/16 at 22:00; Stop 06/16/16 at 21:59 ; Status DC Saliva Substitute 2 spray 2 spray PRN Q15MIN PRN PO DRY MOUTH; Start 06/16/16 at 11:15 Sodium Chloride/ Potassium Chloride/ Potassium Phosphate/ Magnesium Sulfate/ Calcium Gluconate/ Multivitamins/ Chromium/Copper/ Manganese/Seleni/ Zn/Total Parenteral Nutrition/Amino Acids/Dextrose/ Fat Emulsion Intravenous (Sodium Chloride/ Potassium Phospha... 1,512 ml @ 63 mls/hr TPN CONT IV Last administered on 06/16/16 22:11; Start 06/16/16 at 22:00; Stop 06/17/16 at 21:59 ; Status DC Insulin Detemir (Levemir) 8 units 1X ONCE SQ ; Start 06/16/16 at 15:00; Stop at 15:00; Status DC Insulin Detemir 12 units 12 units 1X ONCE SQ Last administered on 06/16/16 16 :31; Start 06/16/16 at 15:30; Stop 06/16/16 at 15:31; Status DC Sodium Chloride/ Potassium Chloride/ Potassium Phosphate/ Magnesium Sulfate/ Calcium Gluconate/ Multivitamins/ Chromium/Copper/ Manganese/Seleni/ Zn/Total Parenteral Nutrition/Amino Acids/Dextrose/ Fat Emulsion Intravenous (Sodium Chloride/ Potassium Phospha... 1,512 ml @ 63 mls/hr TPN CONT IV Last administered on 06/17/16 22:01; Start 06/17/16 at 22:00; Stop 06/18/16 at 21:59 ; Status DC Methylprednisolone Sodium Succinate 125 mg 125 mg 1X ONCE IV Last administered on 06/18/16 10:53; Start 06/18/16 at 09:45; Stop 06/18/16 at 09:46 ; Status DC Sodium Chloride 90 meq/Potassium Chloride 40 meq/ Potassium Phosphate 13.6 mmol/ Magnesium Sulfate 10 meq/ Calcium Gluconate 5 meq/ Multivitamins 10 ml/Chromium / Copper/Manganese/ Seleni/Zn 1 ml/ Total Parenteral Nutrition/Amino Acids/ Dextrose/ Fat Emulsion Intravenous 1,512 ml @ 63 mls/hr TPN CONT IV Last administered on 06/18/16 21:16; Start 06/18/16 at 22:00; Stop 06/19/16 at 21:59 ; Status DC Sodium Chloride/ Potassium Chloride/ Potassium Phosphate/ Magnesium Sulfate/ Calcium Gluconate/ Multivitamins/ Chromium/Copper/ Manganese/Seleni/ Zn/Total Parenteral Nutrition/Amino Acids/Dextrose/ Fat Emulsion Intravenous (Sodium Chloride/ Potassium Phospha... 1,512 ml @ 63 mls/hr TPN CONT IV Last administered on 06/19/16 20:42; Start 06/19/16 at 22:00; Stop 06/20/16 at 21:59 ; Status DC Methylprednisolone Sodium Succinate (Solu-Medrol 40mg Vial) 40 mg Q8HRS IV Last administered on 06/22/16 06:02; Start 06/19/16 at 14:00; Stop 06/22/16 at 13:13; Status DC Barium Sulfate 148 gm 148 gm 1X ONCE PO Last administered on 06/19/16 11:30; Start 06/19/16 at 11:30; Stop 06/19/16 at 11:32; Status DC Sodium Chloride/ Potassium Phosphate/ Magnesium Sulfate/ Calcium Gluconate/ Multivitamins/ Chromium/Copper/ Manganese/Seleni/ Zn/Total Parenteral Nutrition/ Amino Acids/Dextrose/ Fat Emulsion Intravenous (Sodium Chloride/ Potassium Phosphate/ Infuvite Adult/ Multitrace-5 Co... 1,512 ml @ 63 mls/hr TPN CONT IV Last administered on 06/20/16 21:57; Start 06/20/16 at 22:00; Stop at 21:59; Status DC Insulin Detemir 12 units 12 units QHS SQ Last administered on 06/20/16 22:01; Start 06/20/16 at 21:00; Stop 06/21/16 at 20:10; Status DC Sodium Chloride/ Potassium Phosphate/ Magnesium Sulfate/ Calcium Gluconate/ Multivitamins/ Chromium/Copper/ Manganese/Seleni/ Zn/Insulin Human Regular/ Total Parenteral Nutrition/Amino Acids/Dextrose/ Fat Emulsion Intravenous ( Sodium Chloride/ Potassium Phosphate/ Infuvite Sam... 1,512 ml @ 63 mls/hr TPN CONT IV Last administered on 06/21/16 21:22; Start 06/21/16 at 22:00; Stop 06/22/16 at 21:59; Status DC Insulin Detemir 20 units 20 units QHS SQ Last administered on 06/23/16 21:18; Start 06/21/16 at 21:00; Stop 06/24/16 at 14:37; Status DC Sodium Chloride/ Potassium Phosphate/ Magnesium Sulfate/ Calcium Gluconate/ Multivitamins/ Chromium/Copper/ Manganese/Seleni/ Zn/Insulin Human Regular/ Total Parenteral Nutrition/Amino Acids/Dextrose/ Fat Emulsion Intravenous ( Sodium Chloride/ Potassium Phosphate/ Infuvite Sam... 1,512 ml @ 63 mls/hr TPN CONT IV Last administered on 06/22/16 20:32; Start 06/22/16 at 22:00; Stop 06/23/16 at 21:59; Status DC Methylprednisolone Sodium Succinate (Solu-Medrol 40mg Vial) 40 mg Q12HR IV Last administered on 06/23/16 08:46; Start 06/22/16 at 21:00; Stop 06/23/16 at 16:47; Status DC Methylprednisolone Sodium Succinate (Solu-Medrol 40mg Vial) 20 mg Q12HR IV ; Start 06/25/16 at 09:00; Stop 06/25/16 at 09:00; Status DC Insulin Aspart (Novolog) 0-12 UNITS QIDACHS SQ Last administered on 06/27/16 09:26; Start 06/22/16 at 16:30 Alteplase, Recombinant 2 mg 2 mg 1X ONCE INT CAT Last administered on 08:49; Start 06/23/16 at 07:00; Stop 06/23/16 at 07:01; Status DC Sodium Chloride/ Potassium Phosphate/ Magnesium Sulfate/ Calcium Gluconate/ Multivitamins/ Chromium/Copper/ Manganese/Seleni/ Zn/Insulin Human Regular/ Total Parenteral Nutrition/Amino Acids/Dextrose/ Fat Emulsion Intravenous ( Sodium Chloride/ Potassium Phosphate/ Infuvite Sam... 1,512 ml @ 63 mls/hr TPN CONT IV Last administered on 06/23/16 21:19; Start 06/23/16 at 22:00; Stop 06/24/16 at 21:59; Status DC Methylprednisolone Sodium Succinate (Solu-Medrol 40mg Vial) 40 mg Q12HR IV Last administered on 06/23/16 21:11; Start 06/23/16 at 21:00; Stop 06/23/16 at 23:00; Status DC Methylprednisolone Sodium Succinate (Solu-Medrol 40mg Vial) 20 mg Q12HR IV Last administered on 06/24/16 22:05; Start 06/24/16 at 09:00; Stop 06/24/16 at 21:01; Status DC Methylprednisolone Sodium Succinate (Solu-Medrol 40mg Vial) 20 mg 1X ONCE IV Last administered on 06/25/16 09:13; Start 06/25/16 at 09:00; Stop 06/25/16 at 09:01; Status DC Methylprednisolone Sodium Succinate 10 mg 10 mg 1X ONCE IV Last administered on 06/26/16 08:52; Start 06/26/16 at 09:00; Stop 06/26/16 at 09:01; Status DC Sodium Chloride/ Potassium Phosphate/ Magnesium Sulfate/ Calcium Gluconate/ Multivitamins/ Chromium/Copper/ Manganese/Seleni/ Zn/Insulin Human Regular/ Total Parenteral Nutrition/Amino Acids/Dextrose/ Fat Emulsion Intravenous ( Sodium Chloride/ Potassium Phosphate/ Infuvite Sam... 1,512 ml @ 63 mls/hr TPN CONT IV Last administered on 06/24/16 22:10; Start 06/24/16 at 22:00; Stop 06/25/16 at 21:59; Status DC Insulin Detemir 25 units 25 units QHS SQ Last administered on 06/26/16 21:36; Start 06/24/16 at 21:00 Sodium Chloride 90 meq/Potassium Phosphate 13.6 mmol/Magnesium Sulfate 10 meq/ Calcium Gluconate 5 meq/ Multivitamins 10 ml/Chromium/ Copper/Manganese/ Seleni/ Zn 1 ml/ Insulin Human Regular 10 unit/ Total Parenteral Nutrition/Amino Acids/ Dextrose/ Fat Emulsion Intravenous 1,512 ml @ 63 mls/hr TPN CONT IV Last administered on 06/25/16 22:18; Start 06/25/16 at 22:00; Stop 06/26/16 at 21:59 ; Status DC Sodium Chloride/ Potassium Phosphate/ Magnesium Sulfate/ Calcium Gluconate/ Multivitamins/ Chromium/Copper/ Manganese/Seleni/ Zn/Insulin Human Regular/ Total Parenteral Nutrition/Amino Acids/Dextrose/ Fat Emulsion Intravenous ( Sodium Chloride/ Potassium Phosphate/ Infuvite Sam... 1,512 ml @ 63 mls/hr TPN CONT IV Last administered on 06/26/16 22:54; Start 06/26/16 at 22:00; Stop 06/27/16 at 21:59 Barium Sulfate (Varibar Thin Liquid Apple) 148 gm 1X ONCE PO Last administered on 06/26/16 14:00; Start 06/26/16 at 14:00; Stop 06/26/16 at 14:01 ; Status DC Potassium Chloride (Klor-Con) 20 meq DAILYWBKFT PO ; Start 06/28/16 at 08:00 Potassium Chloride (Klor-Con) 20 meq 1X ONCE PO ; Start 06/27/16 at 10:45; Stop 06/27/16 at 10:52; Status DC Potassium Chloride (Klor-Con) 40 meq 1X ONCE PO ; Start 06/27/16 at 11:00; Stop 06/27/16 at 11:01 Active Scripts Active Ciprofloxacin 250 Mg/5 Ml Christina.mc.rec 250 Mg PO BID Children's Aspirin (Aspirin) 81 Mg Tab.chew 81 Mg PO DAILYWBKFT 30 Days Glipizide Er (Glipizide) 5 Mg Tab.er.24 10 Mg PO DAILY Reported Pravachol (Pravastatin Sodium) 80 Mg Tablet 80 Mg PO DAILY Multi-Vitamin Daily (Multivitamin) 1 Each Tablet 1 Each PO DAILY Lisinopril 5 Mg Tablet 5 Mg PO DAILY Flonase (Fluticasone Propionate) 16 Gm [place].susp 2 [place] NS DAILY Famotidine 40 Mg Tablet 40 Mg PO DAILY Cymbalta (Duloxetine Hcl) 60 Mg Capsule.dr 60 Mg PO DAILY Docusate Sodium 100 Mg Capsule 100 Mg PO DAILY Fish Oil Concentrate Softgel (Docosahexanoic Acid/Epa) 1 Each Capsule 1 Each PO DAILY Caltrate 600 + D Tablet (Calcium Carbonate/Vitamin D3) 1 Each Tablet 1 Each PO DAILY Vitals/I & O Vital Sign - Last 24 Hours 06/26/16 06/26/16 06/26/16 06/26/16 14:57 19:15 20:00 23:10 Temp 97.6 98.1 98.5 97.6 98.1 98.5 Pulse 61 67 57 Resp 16 18 18 B/P 127/55 124/47 125/55 Pulse Ox 96 94 95 O2 Delivery Room Air Room Air Room Air Room Air 06/27/16 06/27/16 06/27/16 06/27/16 03:02 07:00 07:30 09:16 Temp 98.4 97.7 98.4 97.7 Pulse 56 63 63 Resp 20 18 B/P 139/57 183/61 183/61 Pulse Ox 96 97 O2 Delivery Room Air Room Air Room Air Intake and Output 06/26/16 06/26/16 06/27/16 15:00 23:00 07:00 Intake Total 1300 ml 600 ml Balance 1300 ml 600 ml Images Speech swallow eval: Inconsistent deep penetration of thin liquids via cup. None w/honey thick via cup. Safe and efficient swallow of solids and puree. IMPRESSIONS: Resolving dysphagia but still moderate risk of aspiration w/thin liquids. Anticipate safe and efficient po intake of rec'd modified diet to meet nutritional needs and take po meds. Improving status of thin liquids, will need repeat video 2-3 weeks prior to upgrade to thin d/t risk of silent aspiration. Can do as OP. RECOMMENDATIONS: Dysphagia III diet w/honey thick liquids. Precautions as posted. NO UN-thickened liquids. Meds w/honey thick liquids. Up to chair for meals if poss. Allow pt to feed self, alternate consistencies Brain MRI, 06/26: FINDINGS Comparison study is dated 06/10/2016. Some of the images are degraded by patient motion. There is generalized parenchymal atrophy. Patchy, confluent and small scattered areas of abnormally increased signal intensity are seen within the periventricular and subcortical white matter of both cerebral hemispheres along with the cruz on the FLAIR and T2 weighted images consistent with areas of small vessel ischemic disease. An old area of infarction is seen involving the right cerebellar hemisphere. This measures 7 millimeters in size. Old areas of lacunar infarction are seen involving the left thalamus. These measure 3-4 millimeters in size. A 1.5 centimeter arachnoid cyst is seen posterior to the vermis of the cerebellum, unchanged. There is no significant associated mass effect. No acute parenchymal abnormality is seen. There is no MRI evidence of acute ischemia/infarction. No acute extra-axial fluid collection is seen. A 1.6 centimeter mucous retention cyst is seen involving left maxillary sinus. Mild mucosal thickening is seen involving scattered ethmoid air cells bilaterally. There are small to moderate-sized mastoid effusions, right greater than left. Normal flow voids are seen within the major vascular structures surrounding the brain parenchyma. IMPRESSION No acute parenchymal abnormality is seen. YOSVANY JENSEN MD Jun 27, 2016 11:03
--- NOTE | 2016-06-27 11:23 | PDOC ---
CARDIO Progress Notes Date and Time Date of Service 06/27/2016 Time of Evaluation 1121 Subjective Subjective: Other (sleepy and lethargic) Vitals Vitals Vital Signs Date Time Temp Pulse Resp B/P Pulse Ox O2 Delivery O2 Flow Rate FiO2 06/27/16 09:16 63 183/61 06/27/16 07:30 Room Air 06/27/16 07:00 97.7 18 97 97.7 Weight Weight [ ] Input and Output Intake and Output Intake and Output 06/27/16 07:00 Intake Total 1900 ml Balance 1900 ml Intake Oral 600 ml IV Total 1300 ml # Voids 12 # Bowel Movements 2 Laboratory Labs Laboratory Tests Test 06/26/16 11:18 06/26/16 15:20 06/26/16 16:45 06/26/16 21:12 Glucose (Fingerstick) 156mg/dL (70-99) 185mg/dL (70-99) 277mg/dL (70-99) White Blood Count 15.4x10^3/uL (4.0-11.0) Red Blood Count 3.88x10^6/uL (3.50-5.40) Hemoglobin 11.9g/dL (12.0-15.5) Hematocrit 36.1% (36.0-47.0) Mean Corpuscular Volume 93fL (79-100) Mean Corpuscular Hemoglobin 31pg (25-35) Mean Corpuscular Hemoglobin Concent 33g/dL (31-37) Red Cell Distribution Width 13.5% (11.5-14.5) Platelet Count 306x10^3/uL (140-400) Neutrophils (%) (Auto) 88% (31-73) Lymphocytes (%) (Auto) 8% (24-48) Monocytes (%) (Auto) 3% (0-9) Eosinophils (%) (Auto) 0% (0-3) Basophils (%) (Auto) 0% (0-3) Neutrophils # (Auto) 13.6x10^3uL (1.8-7.7) Lymphocytes # (Auto) 1.3x10^3/uL (1.0-4.8) Monocytes # (Auto) 0.4x10^3/uL (0.0-1.1) Eosinophils # (Auto) 0.0x10^3/uL (0.0-0.7) Basophils # (Auto) 0.0x10^3/uL (0.0-0.2) Segmented Neutrophils % 89% (35-66) Lymphocytes % 8% (24-48) Monocytes % 1% (0-10) Eosinophils % 1% (0-5) Basophils % 1% (0-3) Platelet Estimate Adequate (ADEQUATE) Large Platelets Occ Polychromasia Slight Anisocytosis Slight Ovalocytes Occ Sodium Level 139mmol/L (136-145) Potassium Level 3.9mmol/L (3.5-5.1) Chloride Level 104mmol/L (98-107) Carbon Dioxide Level 23mmol/L (21-32) Anion Gap 12 (6-14) Blood Urea Nitrogen 23mg/dL (7-20) Creatinine 0.7mg/dL (0.6-1.0) Estimated GFR (Cockcroft-Gault) 80.1 BUN/Creatinine Ratio 33 (6-20) Glucose Level 197mg/dL (70-99) Calcium Level 8.4mg/dL (8.5-10.1) Total Bilirubin 0.4mg/dL (0.2-1.0) Aspartate Amino Transf (AST/SGOT) 30U/L (15-37) Alanine Aminotransferase (ALT/SGPT) 36U/L (14-59) Alkaline Phosphatase 130U/L (46-116) Troponin I Quantitative < 0.017ng/mL (0.000-0.055) Total Protein 5.4g/dL (6.4-8.2) Albumin 2.3g/dL (3.4-5.0) Albumin/Globulin Ratio 0.7 (1.0-1.7) Test 06/27/16 04:53 06/27/16 06:58 06/27/16 11:05 Sodium Level 141mmol/L (136-145) Potassium Level 3.1mmol/L (3.5-5.1) Chloride Level 106mmol/L (98-107) Carbon Dioxide Level 25mmol/L (21-32) Anion Gap 10 (6-14) Blood Urea Nitrogen 22mg/dL (7-20) Creatinine 0.8mg/dL (0.6-1.0) Estimated GFR (Cockcroft-Gault) 68.7 Glucose Level 214mg/dL (70-99) Calcium Level 8.5mg/dL (8.5-10.1) Glucose (Fingerstick) 190mg/dL (70-99) 230mg/dL (70-99) Microbiology Micro Microbiology 06/10/16 Blood Culture - Final, Complete NO GROWTH AFTER 5 DAYS 06/11/16 Gram Stain - Final, Complete 06/08/16 Urine Culture - Final, Complete 06/08/16 Urine Culture Result 1 (ALEJO) - Final, Complete Physical Exam HEENT: Neck Supple W Full Motion Chest: Symmetric Heart: S1S2, RRR, other (tele SB; rate in the 40s during the night early a.m. - associated with sleep) Neurology: other (sleepy) Diagnostic Tests Echocardiogram: Normal LVEF (55-60% with mild diastolic dysfunction; normal segmental wall motion ), No pericardial Effusion, Other (no signficant valvular disese) Assessment Assessment 1. syncope none further no dysrhythmias with carotid massage yesterday afternoon echo without significant valvular disease and preserved LV function as well as normal wall motion no dysrhythmias overnight; SB with rates in the upper 40s while sleeping recommend pt follow up with Dr. Oneil after discharge - ? need for event monitor 2. CAD with PCI/MEAGAN to RCA in 2008 mild LAD disease not treated no angina continue secondary prevention with ASA and statins DD - treated with ACEI 3. 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 Bc Oneil - after discharge Other Comments REVIEW OF -[facility] [place] RECORDS: --RCA STENT (2.75 x 18 MEAGAN) 07/2008; MILD LAD LESION NOT INTERVENED ON --MPI 12/24/2014: NON-ISCHEMIC AND NO EVIDENCE OF IL; LVEF ~ 58% [employer]A [employer] Jun 27, 2016 11:23
[2016-06-27] MEDS: POTASSIUM CHLORIDE 10MEQ 100 ML IV SCH ×2 (14:15→15:13)
[2016-06-27 15:00] VITALS: BP 154/36
[2016-06-27 19:05] VITALS: BP 142/57
[2016-06-27] MEDS: ATORVASTATIN CALCIUM 20 MG TABLET PO SCH (21:00)
[2016-06-27] MEDS: INSULIN DETEMIR 300 UNITS/3 ML INSULN.PEN. SQ SCH (21:00)
[2016-06-27 23:25] VITALS: BP 142/38
[2016-06-28 03:26] VITALS: BP 143/47
[2016-06-28 07:00] VITALS: BP 134/39
[2016-06-28] MEDS: INSULIN ASPART 300 UNITS/3 ML INSULN.PEN SQ SCH ×2 (07:30→11:16)
[2016-06-28] MEDS ORDERED: POTASSIUM CHLORIDE 20 MEQ TABLET.ER. PO SCH (08:00)
[2016-06-28] MEDS: LIDOCAINE (700MG/PATCH) PATCH. TD SCH (09:09)
[2016-06-28] MEDS: FLUTICASONE 50MCG/NASAL SPRAY 16GM BOTTLE. NS SCH (09:10)
[2016-06-28] MEDS: PANTOPRAZOLE IV PUSH 40 MG VIAL. IVP SCH (09:10)
[2016-06-28] MEDS: DULOXETINE HCL 30 MG CAPSULE.DR. PO SCH (09:11)
[2016-06-28] MEDS: LISINOPRIL 5 MG TABLET. PO SCH (09:11)
[2016-06-28] MEDS: CALCIUM CARB/VIT D3 500/200 TABLET PO SCH (09:11)
[2016-06-28] MEDS: OMEGA-3 FATTY ACIDS/FISH OIL 1,000 MG CAPSULE. PO SCH (09:11)
[2016-06-28] MEDS: MULTIVITAMIN with MINERAL TABLET. PO SCH (09:11)
[2016-06-28] MEDS: ASPIRIN 81 MG TAB.CHEW PO SCH (09:11)
[2016-06-28] MEDS: DOCUSATE SODIUM 100 MG CAPSULE PO SCH (09:11)
[2016-06-28] MEDS: GLIPIZIDE ER 5 MG TAB.ER.24 PO SCH (09:11)
[2016-06-28 11:00] VITALS: BP 136/54
[2016-06-28] MEDS ORDERED: ONDANSETRON PF 4 MG/2 ML VIAL. IV PRN (11:45)
--- NOTE | 2016-06-28 12:20 | PDOC ---
Subjective: Subjective: No complaints. Objective: Objective: Per RN - no eating/swallowing issues. DC to rehab today. Vital Signs: Vital Signs Date Time Temp Pulse Resp B/P Pulse Ox O2 Delivery O2 Flow Rate FiO2 06/28/16 11:00 97.8 61 12 136/54 95 Room Air 97.8 Labs: Laboratory Tests Test 06/27/16 16:32 06/27/16 20:35 06/28/16 07:17 06/28/16 10:49 Glucose (Fingerstick) 267mg/dL (70-99) 129mg/dL (70-99) 77mg/dL (70-99) 142mg/dL (70-99) PE: GEN: NAD LUNGS: CTAB HEART: RRR ABD: NABS, S/ND/NT NEURO/PSYCH: A & O 3 A/P: Encephalopathy, dysphagia - improved -tolerating PO -- DC to rehab today. OVI LAKHANI Jun 28, 2016 12:20
--- NOTE | 2016-06-28 17:53 | PDOC3 ---
Discharge Summary Visit Information Date of Admission: Jun 08, 2016 Date of Discharge: Jun 28, 2016 Admitting Diagnosis: rib fracture, fall Final Diagnosis acute metabolic encephalopathy s/p fall w/ rib fx 1. R rib fxs # 6-9 with smll PTX: 2/2 fall. 2. Acute encephalopathy: metabolic 3. some underlying dementia: 4. Dysphagia: improved, 5. Leukocytosis: fluctuating 6. Colitis: 7. ANT: POA, susp vasomotor etiology 8. Hyperkalemia: POA. resolved 9. DM 2: ISS only. 10. HTN: 11. GERD: PPI 12. 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 hypokalemia, replace pO 15. weakness and debility Problems Medical Problems: (1) Fall Status: Acute (2) Fall (on) (from) other stairs and steps, initial encounter Status: Acute (3) Ribs, multiple fractures Status: Acute Brief Hospital Course Allergies Allergies Coded Allergies Type Severity Reaction Last Updated Verified metformin Allergy Intermediate 05/13/14 Yes Vital Signs Vital Signs Date Time Temp Pulse Resp B/P Pulse Ox O2 Delivery O2 Flow Rate FiO2 06/28/16 11:00 97.8 61 12 136/54 95 Room Air 97.8 Lab Results Laboratory Tests Test 06/26/16 21:12 06/27/16 04:53 06/27/16 06:58 06/27/16 11:05 Glucose (Fingerstick) 277mg/dL (70-99) 190mg/dL (70-99) 230mg/dL (70-99) Sodium Level 141mmol/L (136-145) Potassium Level 3.1mmol/L (3.5-5.1) Chloride Level 106mmol/L (98-107) Carbon Dioxide Level 25mmol/L (21-32) Anion Gap 10 (6-14) Blood Urea Nitrogen 22mg/dL (7-20) Creatinine 0.8mg/dL (0.6-1.0) Estimated GFR (Cockcroft-Gault) 68.7 Glucose Level 214mg/dL (70-99) Calcium Level 8.5mg/dL (8.5-10.1) Test 06/27/16 16:32 06/27/16 20:35 06/28/16 07:17 06/28/16 10:49 Glucose (Fingerstick) 267mg/dL (70-99) 129mg/dL (70-99) 77mg/dL (70-99) 142mg/dL (70-99) Laboratory Tests Test 06/27/16 20:35 06/28/16 07:17 06/28/16 10:49 Glucose (Fingerstick) 129mg/dL (70-99) 77mg/dL (70-99) 142mg/dL (70-99) Brief Hospital Course Ms. Gao is a 81 old female admit after falling in bathroom and breaking ribs, ongoing pain, difficulty breathing due to pain, then metabolic encephalopahty and prolonged stay of delirium w./ weakness and dysphagia and malnutrition, failed swallow eval X2, was obtuneded some days, Lumbar puncture looked clear, and HSV results negative, she had symptoms of encephalitis, no source, no clear diagnosis for prolonged stay other than maybe underlying dementia that was not diagnosed Discharge Information Condition at Discharge: Improved Follow Up: Weeks Disposition/Orders: D/C to Another Facility ([facility]*) Scheduled Aspirin (Children's Aspirin) 81 MG PO DAILYWBKFT Calcium Carbonate/Vitamin D3 (Caltrate 600 + D Tablet) 1 EACH PO DAILY (Reported ) Ciprofloxacin (Ciprofloxacin) 250 MG PO BID Docosahexanoic Acid/Epa (Fish Oil Concentrate Softgel) 1 EACH PO DAILY (Reported ) Docusate Sodium (Docusate Sodium) 100 MG PO DAILY (Reported) Duloxetine Hcl (Cymbalta) 60 MG PO DAILY (Reported) Famotidine (Famotidine) 40 MG PO DAILY (Reported) Fluticasone Propionate (Flonase) 2 SPRAY NS DAILY (Reported) Glipizide (Glipizide Er) 10 MG PO DAILY Lisinopril (Lisinopril) 5 MG PO DAILY (Reported) Multivitamin (Multi-Vitamin Daily) 1 EACH PO DAILY (Reported) Pravastatin Sodium (Pravachol) 80 MG PO DAILY (Reported) Patient Instructions Patient Instructions time > 30min TAI CELESTE MD Jun 28, 2016 17:53
== END 2016-06-28 15:07 | DRG 682 ==
LOC: ER 08:27 → 4 NORTH 10:50
PROVIDERS: ADMIT Internal Medicine; ATTEND Internal Medicine
PROC: 009U3ZX Drainage of Spinal Canal, Percutaneous Approach, Diagnostic (ICD-10-PCS; principal; 2016-06-12)
DX: N17.0 Acute kidney failure with tubular necrosis (principal); G93.41 Metabolic encephalopathy; S22.41XA Multiple fractures of ribs, right side, initial encounter for closed fracture; N39.0 Urinary tract infection, site not specified; S27.0XXA Traumatic pneumothorax, initial encounter; K62.5 Hemorrhage of anus and rectum; J98.11 Atelectasis; I25.10 Atherosclerotic heart disease of native coronary artery without angina pectoris; I10 Essential (primary) hypertension; E78.00 Pure hypercholesterolemia, unspecified; M41.9 Scoliosis, unspecified; Z85.3 Personal history of malignant neoplasm of breast; K21.9 Gastro-esophageal reflux disease without esophagitis; Z86.010 Personal history of colon polyps; Z86.73 Personal history of transient ischemic attack (TIA), and cerebral infarction without residual deficits; E11.42 Type 2 diabetes mellitus with diabetic polyneuropathy; M81.0 Age-related osteoporosis without current pathological fracture; Z90.49 Acquired absence of other specified parts of digestive tract; E66.9 Obesity, unspecified; E78.5 Hyperlipidemia, unspecified; Z87.891 Personal history of nicotine dependence; Z51.5 Encounter for palliative care; M17.0 Bilateral primary osteoarthritis of knee; Z82.49 Family history of ischemic heart disease and other diseases of the circulatory system; Z82.3 Family history of stroke; E87.5 Hyperkalemia; G47.33 Obstructive sleep apnea (adult) (pediatric); E11.65 Type 2 diabetes mellitus with hyperglycemia; K52.9 Noninfective gastroenteritis and colitis, unspecified; R13.10 Dysphagia, unspecified; F03.90 Unspecified dementia, unspecified severity, without behavioral disturbance, psychotic disturbance, mood disturbance, and anxiety; E87.6 Hypokalemia; R55 Syncope and collapse; W18.30XA Fall on same level, unspecified, initial encounter; Z96.653 Presence of artificial knee joint, bilateral; R32 Unspecified urinary incontinence; Z90.710 Acquired absence of both cervix and uterus; Z95.5 Presence of coronary angioplasty implant and graft; Z90.10 Acquired absence of unspecified breast and nipple; Z88.8 Allergy status to other drugs, medicaments and biological substances; Z68.28 Body mass index [BMI] 28.0-28.9, adult; Y92.009 Unspecified place in unspecified non-institutional (private) residence as the place of occurrence of the external cause
CPT/HCPCS: 36415; 62270; 70450; 70551; 71010; 71101; 72100; 74176; 74230; 80048; 80053; 80076; 81001; 82274; 82306; 82550; 82945; 82947; 83605; 83735; 84100; 84145; 84157; 84425; 84443; 84478; 84484; 85007; 85027; 85610; 85651; 86141; 86788; 86789; 87040; 87071; 87075; 87086; 87205; 87324; 87529; 87641; 89051; 93005; 93306; 94660; 94760; 95816; C9113; J0133; J0610; J0878; J1650; J1815; J2060; J2310; J2405; J2543; J2920; J2930; J2997; J3475; J3480; J3490; J7030; 92526; 92610; 92611; 97110; 97116; 97530; 97535; 99285-25